=== PATIENT | female | born 1985 ===

== ENCOUNTER 2020-03-06 10:56 | Outpatient (REF) | payer OTHER, SELFPAY ==
--- NOTE | 2020-03-06 11:33 | PM.OP ---
Brief Operative Note Date of procedure: 03/06/20 Procedure: This is doctor Bess Kathleen. This is an ultrasound-guided fine-needle aspiration report. Patient name: Maira Gotti : 1985 Date of Examination: 03/06/2020 Referring Physician Is: Lavon Richardson MD Indication: Multinodular Thyroid Porcedure: Procedure was explained to the patient. Alternatives, the risk and benefits were discussed. Written consent was obtained. A time-out was also obtained. After sterile preparation, fine-needle aspiration of a L [place] 2.7 cm thyroid nodule was performed using direct ultrasound guidance to confirm accurate needle placement. Four aspirations were made using 27 gauge needles. Samples were submitted for cytology. 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 The patient tolerated the procedure well. Aftercare instructions were provided. Impression: Uncomplicated fine needle aspiration biopsy of L [place] 2.7 cm thyroid nodule under ultrasound guideance.
[2020-03-06] MEDS: Lidocaine HCl 1 % 20 ML VIAL 5 ML SUBCUT (12:07)
== END 2020-03-06 10:57 | disposition home or self-care (01) ==
LOC: HO.US 10:56
PROVIDERS: PCP Internal Medicine; Visit Provider Internal Medicine
DX: E04.2 Nontoxic multinodular goiter (principal)
CPT/HCPCS: 10005; 88172; 88173

== ENCOUNTER → 2020-03-13 12:20 | Outpatient (BNVA) | payer OTHER, SELFPAY | PROVIDERS: Visit Provider Internal Medicine | DX: C73 Malignant neoplasm of thyroid gland (principal); E55.9 Vitamin D deficiency, unspecified; R59.0 Localized enlarged lymph nodes; Z98.890 Other specified postprocedural states | CPT/HCPCS: 99214 ==

== ENCOUNTER → 2020-05-22 11:54 | Outpatient (BNVA) | payer OTHER, SELFPAY | PROVIDERS: PCP Internal Medicine; Referring Provider Internal Medicine; Visit Provider Internal Medicine | DX: Z76.89 Persons encountering health services in other specified circumstances (principal) ==

== ENCOUNTER 2020-07-07 | Emergency (ER) | payer OTHER, SELFPAY ==
[2020-07-07 00:49] VITALS: BP 117/70; PULSE 90; RESP 16; TEMP 36.4; O2SAT 96; BMI 38.4
[2020-07-07 01:07] LABS: Appearance Urine HAZY; Color Urine YELLOW; Glucose Urine UA NEG (NEG); Leukocyte Esterase Urine TRACE (NEG); Nitrite Urine NEG (NEG); PH 6.5 (5.0-8.0); UACC Culture Trigger YES; Urine Blood NEG (NEG); Urine Ketones NEG (NEG); Urine Protein NEG (NEG-TRACE)
[2020-07-07 01:09] LABS: UPreg QC Valid YES; Urine Pregnancy NEGATIVE (NEGATIVE)
[2020-07-07 01:12] LABS: MANUAL DIFF FLAG NO
[2020-07-07 01:13] LABS: Bacteria Urine 3+ /LPF; RBC Urine 0 /HPF (0); Squamous Epithelial Cell Urine 4+ /LPF
[2020-07-07 01:16] LABS: Basophils Percent Auto 0.4 % (0-2); Eosinophils Absolute Auto 0.8 X10*3/uL (0.0-0.4); Eosinophils Percent Auto 8.2 % (0-4); Hematocrit 41.8 % (37-47); Hemoglobin 13.8 g/dl (12.0-16.0); Imm Gran Abs Auto 0.04 X10*3/uL (0.00-0.03); Imm Gran Pct Auto 0.4 % (0.0-0.4); Lymphocytes Absolute Auto 3.2 X10*3/uL (1.2-4.9); Mean Corpuscular Hemoglobin 32.3 pg (27.0-33.0); Mean Corpuscular Volume 97.9 fL (80-98); Mean Platelet Volume 8.9 fL (9.4-12.3); Monocytes Absolute Auto 0.7 X10*3/uL (0.1-1.2); Monocytes Percent Auto 7.3 % (2-11); Neutrophils Absolute Auto 4.7 X10*3/uL (2.0-8.3); Neutrophils Percent Auto 49.7 % (45-73); Platelet Count 360 X10*3/uL (160-400); Red Blood Count 4.27 X10*6/uL (4.20-5.50); Red Cell Distribution Width 12.7 % (11.0-16.0); White Blood Count 9.5 X10*3/uL (4.8-10.8)
[2020-07-07 01:40] LABS: Alanine Aminotransferase 57 U/L (0-31); Alkaline Phosphatase 57 U/L (39-117); Anion Gap 12 (12-20); Aspartate Amino Transferase 41 U/L (5-31); Bilirubin Total 0.5 mg/dL (0.0-1.0); Blood Urea Nitrogen 19 mg/dL (9-16); Calcium 9.7 mg/dL (8.4-10.2); Carbon Dioxide 28 mmol/L (22-29); Chloride 102 mmol/L (96-108); Estimated Glomerular Filt Rate 52; Glucose Random 93 mg/dL (60-115); Lipase 56 U/L (8-78); Potassium 3.7 mmol/L (3.3-5.1); Sodium 138 mmol/L (135-145)
--- NOTE | 2020-07-07 01:57 | ED_ITS ---
HPI - Abdominal Pain General Chief Complaint: Abdominal Pain Stated Complaint: Abd pain Time Seen by Provider: 07/07/20 00:27 Source: patient History of Present Illness HPI narrative: This is a 35-year-old female with history of asthma and presents with suprapubic discomfort as well as left lower rib discomfort after having fallen and catching herself without head strike or LOC yesterday. She denies any associated fevers, chills, nausea, vomiting, but does describe pain on urination. Related Data Home Medications Medication Instructions Recorded Confirmed clonazepam 1 mg tablet 1 mg PO DAILY 05/22/20 05/22/20 levothyroxine 150 mcg capsule 150 mcg PO DAILY 05/22/20 05/22/20 topiramate 25 mg tablet 25 mg PO DAILY 05/22/20 05/22/20 Previous Rx's Medication Instructions Recorded albuterol sulfate 90 mcg/actuation 2 puff INHALATION Q4-6H PRN #8.5 g 03/14/20 aerosol inhaler nitrofurantoin monohyd/m-cryst 100 mg PO Q12H 5 Days #10 cap 07/07/20 [Macrobid] phenazopyridine [Pyridium] 100 mg PO TID #6 tab 07/07/20 Allergies Allergy/AdvReac Type Severity Reaction Status Date / Time iodine [IODINE] Allergy Mild RASH Verified 07/07/20 00:48 morphine [MORPHINE] Allergy Unknown WBC Verified 07/07/20 00:48 ELEVATED/ N/V shellfish derived Allergy Unknown HIVES Verified 07/07/20 00:48 [SHELLFISH DERIVED] Review of Systems Review of Systems Pertinent positives and negatives as stated in HPI 10 point review of systems otherwise negative. Physical Exam Vital Signs: Vital Signs: Last Vital Signs Temp 97.6 F 07/07/20 00:49 Pulse 90 07/07/20 00:49 Resp 16 07/07/20 00:49 BP 117/70 07/07/20 00:49 Pulse Ox 96 07/07/20 00:49 Body Mass Index 38.4 VITAL SIGNS: Reviewed. GENERAL: Well developed, well nourished, in no acute distress. HEAD: Normocephalic/atraumatic, NOSE: Nares patent bilateral OROPHARYNX: no oral lesions noted, posterior pharynx clear NECK: Supple, no adenopathy LUNGS: Normal breath sounds, minimal expiratory wheeze, no tachypnea, no increased work of breathing. SpO2<96> CARDIOVASCULAR: Regular rate and rhythm without noted murmurs ABDOMEN: Obese, Soft, tenderness that suprapubic without rebound, non-distended with bowel sounds. MUSCULOSKELETAL: Left anterior tenderness on palpation along the lower edge of the ribs NEUROLOGIC: Alert and oriented x 4. Course Course Course Narrative: This is a 35-year-old female with history and clinical presentation suggestive of possible muscle strain, as well as UTI and doubt diverticulitis. Review of all investigations for UTI but otherwise unremarkable. Patient was treated with combination analgesics for the suspected muscle strain at left upper quadrant discomfort with good resolution pain. Patient also received initial antibiotics here in the emergency department and was discharged in stable condition. MDM - Abdominal Pain Lab Data Result diagrams: 07/07/20 00:59 07/07/20 00:59 Labs: Lab Results 07/07/20 07/07/20 07/07/20 Range/Units 00:59 00:59 00:59 WBC 9.5 (4.8-10.8) X10*3/uL RBC 4.27 (4.20-5.50) X10*6/uL Hgb 13.8 (12.0-16.0) g/dl Hct 41.8 (37-47) % MCV 97.9 (80-98) fL MCH 32.3 (27.0-33.0) pg MCHC 33.0 (31.0-35.0) g/dl RDW 12.7 (11.0-16.0) % Plt Count 360 (160-400) X10*3/uL MPV 8.9 L (9.4-12.3) fL Immature Gran % (Auto) 0.4 (0.0-0.4) % Neut % (Auto) 49.7 (45-73) % Lymph % (Auto) 34.0 (20-40) % [place] % (Auto) 7.3 (2-11) % Eos % (Auto) 8.2 H (0-4) % Baso % (Auto) 0.4 (0-2) % Lymph # (Auto) 3.2 (1.2-4.9) X10*3/uL [place] # (Auto) 0.7 (0.1-1.2) X10*3/uL Eos # (Auto) 0.8 H (0.0-0.4) X10*3/uL Baso # (Auto) 0.0 (0.0-0.2) X10*3/uL Abs Immat Gran (auto) 0.04 H (0.00-0.03) X10*3/uL Absolute Neuts (auto) 4.7 (2.0-8.3) X10*3/uL Absolute Nucleated RBC 0.000 (0.0-0.012) X10*3/uL Nucleated RBC % (auto) 0.0 (0.0-0.2) /100WBC Sodium 138 (135-145) mmol/L Potassium 3.7 (3.3-5.1) mmol/L Chloride 102 (96-108) mmol/L Carbon Dioxide 28 (22-29) mmol/L Anion Gap 12 (12-20) BUN 19 H (9-16) mg/dL Creatinine 1.19 (0.5-1.4) mg/dL Estim Creat Clear Calc 71.0 Estimated GFR 52 Random Glucose 93 (60-115) mg/dL Calcium 9.7 (8.4-10.2) mg/dL Total Bilirubin 0.5 (0.0-1.0) mg/dL AST 41 H (5-31) U/L ALT 57 H (0-31) U/L Alkaline Phosphatase 57 (39-117) U/L Total Protein 8.0 (6.5-8.0) g/dL Albumin 4.0 (3.5-5.0) g/dL Lipase 56 (8-78) U/L Urine Color YELLOW Urine Appearance HAZY Urine pH 6.5 (5.0-8.0) Ur Specific [place] 1.020 (1.005-1.025) Urine Protein NEG (NEG-TRACE) MG/DL Urine Glucose (UA) NEG (NEG) MG/DL Urine Ketones NEG (NEG) MG/DL Urine Blood NEG (NEG) Urine Nitrite NEG (NEG) Ur Leukocyte Esterase TRACE H (NEG) Urine RBC 0 (0) /HPF Urine WBC 5-9 H (0-4) /HPF Ur Squamous Epith Cells 4+ /LPF Urine Bacteria 3+ /LPF Urine Test NEGATIVE (NEGATIVE) Discharge Plan Discharge Clinical Impression: Muscle strain UTI (urinary tract infection) Qualifiers: Urinary tract infection type: acute cystitis Hematuria presence: without hematuria Qualified Code(s): N30.00 - Acute cystitis without hematuria Patient Disposition: Home, Self-Care Instructions: Muscle Strain (ED), Urinary Tract Infection in Women (ED) Additional Instructions: MUSCLE STRAIN 1. Tylenol 1000 mg, orally, every 6 hours as needed for pain control. Do not exceed 4000 mg within 24 hours. 2. Ibuprofen 400 mg, orally with milk or food, every 6 hours as needed for pain control. You may take this with Tylenol for additional symptom relief. 3. Recommend lidocaine patch, these are available [id number] at every [facility], apply to area of maximal tenderness as directed on the outside packaging. UTI You have been provided with a prescription for antibiotics and treatment of your urinary tract infection please complete the entire course. Follow-up with your primary care provider by calling the office in the morning for re-evaluation and further outpatient management. Do not hesitate to return to the emergency department should you develop any acute worsening of your symptoms. Prescriptions: New phenazopyridine [Pyridium] 100 mg tablet 100 mg PO TID Qty: 6 RF: 0 nitrofurantoin monohyd/m-cryst [Macrobid] 100 mg capsule 100 mg PO Q12H 5 Days Qty: 10 RF: 0 No Action albuterol sulfate 90 mcg/actuation HFA aerosol inhaler 2 puff inhalation Q4-6H PRN (Reason: shortness of breath or wheezing) Qty: 8.5 RF: 0 clonazepam [Klonopin] 1 mg tablet 1 mg PO DAILY RF: 0 topiramate [Topamax] 25 mg tablet 25 mg PO DAILY RF: 0 levothyroxine 150 mcg capsule 150 mcg PO DAILY RF: 0 Referrals: Physician,Unknown [Primary Care Provider] - 2 days [facility] Past Medical History Source: nursing notes reviewed Medical History Cervical lymphadenopathy Hypothyroidism Thyroid cancer Vitamin D deficiency Surgical History Hx of section Hx of cholecystectomy Family History Family History Father Diabetes Asthma Mother Unknown family medical history Social History Social History Smoking Status: Current every day smoker Tobacco Type: Cigarette Cigarettes Per Day: 1 Years Smoked: 20 years Advance Directives: No Advance Directives Information Provided: No
[2020-07-07] MEDS: Phenazopyridine HCL 100 MG TABLET PO (02:50)
[2020-07-07] MEDS: Nitrofurantoin Monohyd/M-Cryst 100 MG CAPSULE PO (02:50)
[2020-07-07] MEDS: Acetaminophen 325 MG TABLET 975 MG PO (02:50)
[2020-07-07] MEDS: Lidocaine 4 % Patch ADH..PATCH 1 PATCH TRANSDERMA (02:52)
[2020-07-07] MEDS: Ketorolac Tromethamine 15 MG/ML VIAL IM (02:56)
== END 2020-07-07 03:11 | disposition home or self-care (01) ==
PROVIDERS: Emergency Provider Student in an Organized Health Care Education/Training Program
DX: S39.011A Strain of muscle, fascia and tendon of abdomen, initial encounter (principal); W17.89XA Other fall from one level to another, initial encounter; N30.00 Acute cystitis without hematuria; Y93.9 Activity, unspecified; Y92.009 Unspecified place in unspecified non-institutional (private) residence as the place of occurrence of the external cause; Y99.9 Unspecified external cause status
CPT/HCPCS: 36415; 80053; 81001; 81003; 81025; 83690; 85025; 87086; 96372; 99283; 99284; J1885

== ENCOUNTER 2020-07-23 16:01 | Outpatient (REF) | payer OTHER, SELFPAY | END 2020-07-23 16:02 | disposition home or self-care (01) | LOC: HO.LAB 16:01 | PROVIDERS: Visit Provider Nurse Practitioner Family | DX: R52 Pain, unspecified (principal); Z20.822 Contact with and (suspected) exposure to COVID-19 | CPT/HCPCS: 36415; U0003; U0005 ==

== ENCOUNTER 2020-07-24 13:04 | Outpatient (REF) | payer OTHER, SELFPAY ==
[2020-07-24 13:57] LABS: MANUAL DIFF FLAG NO
[2020-07-24 14:02] LABS: Basophils Percent Auto 0.6 % (0-2); Eosinophils Absolute Auto 0.3 X10*3/uL (0.0-0.4); Eosinophils Percent Auto 4.6 % (0-4); Hematocrit 41.6 % (37-47); Hemoglobin 13.6 g/dl (12.0-16.0); Imm Gran Abs Auto 0.02 X10*3/uL (0.00-0.03); Imm Gran Pct Auto 0.3 % (0.0-0.4); Lymphocytes Absolute Auto 2.2 X10*3/uL (1.2-4.9); Lymphocytes Percent Auto 32.2 % (20-40); Mean Corpuscular HGB Conc 32.7 g/dl (31.0-35.0); Mean Corpuscular Hemoglobin 32.1 pg (27.0-33.0); Mean Corpuscular Volume 98.1 fL (80-98); Mean Platelet Volume 9.2 fL (9.4-12.3); Monocytes Absolute Auto 0.4 X10*3/uL (0.1-1.2); Monocytes Percent Auto 5.9 % (2-11); Neutrophils Absolute Auto 3.9 X10*3/uL (2.0-8.3); Neutrophils Percent Auto 56.4 % (45-73); Platelet Count 337 X10*3/uL (160-400); Red Blood Count 4.24 X10*6/uL (4.20-5.50); Red Cell Distribution Width 13.8 % (11.0-16.0); White Blood Count 6.9 X10*3/uL (4.8-10.8)
[2020-07-24 14:37] LABS: Alanine Aminotransferase 60 U/L (0-31); Albumin Level 4.1 g/dL (3.5-5.0); Alkaline Phosphatase 55 U/L (39-117); Anion Gap 12 (12-20); Aspartate Amino Transferase 53 U/L (5-31); Bilirubin Total 0.5 mg/dL (0.0-1.0); Blood Urea Nitrogen 14 mg/dL (9-16); Calcium 9.1 mg/dL (8.4-10.2); Carbon Dioxide 28 mmol/L (22-29); Chloride 102 mmol/L (96-108); Estimated Glomerular Filt Rate 48; Glucose Fasting 80 mg/dL (60-99); Potassium 4.5 mmol/L (3.3-5.1); Sodium 137 mmol/L (135-145); Total Protein 7.9 g/dL (6.5-8.0)
[2020-07-24 14:44] LABS: Ferritin 22 ng/mL (10-122); TSH reflex Free T4 71.75 uIU/mL (0.32-4.0)
[2020-07-24 14:56] LABS: Folate 4.1 ng/mL (> or = 4.0); Vitamin B12 436 pg/mL (200-900)
[2020-07-24 15:32] LABS: Free T4 (Free Thyroxine) < 0.40 ng/dL (0.71-1.85)
== END 2020-07-24 13:05 | disposition home or self-care (01) ==
LOC: HO.HMGCLDS 13:04
PROVIDERS: PCP Internal Medicine; Visit Provider Nurse Practitioner Family
DX: R52 Pain, unspecified (principal)
CPT/HCPCS: 36415; 80053; 82306; 82607; 82728; 82746; 84439; 84443; 85025

== ENCOUNTER 2020-10-27 23:09 | Emergency (ER) | payer OTHER, SELFPAY ==
[2020-10-27 23:15] VITALS: BP 99/72; PULSE 99; RESP 20; TEMP 37.2; O2SAT 94; BMI 36.6
--- NOTE | 2020-10-28 00:34 | ED.ASTHMA ---
HPI - Asthma General Chief Complaint: Asthma <Dewayne Bowden MD - Last Filed: 10/28/20 16:41> Stated Complaint: Asthma <Dewayne Bowden MD - Last Filed: 10/28/20 16:41> Time Seen by Provider: 10/28/20 00:26 <Dewayne Bowden MD - Last Filed: 10/28/20 16:41> Source: patient <Dewayne Bowden MD - Last Filed: 10/28/20 16:41> Mode of arrival: ambulatory <Dewayne Bowden MD - Last Filed: 10/28/20 16:41> Limitations: no limitations <Dewayne Bowden MD - Last Filed: 10/28/20 16:41> History of Present Illness HPI Narrative: Patient with history of asthma been feeling more short of breath with wheezing for last 3 days secondary to pollen on Advair and albuterol inhaler at home usually get sick very often when the pollen season comes No fever. Feels congested <Dewayne Bowden MD - Last Filed: 10/28/20 16:41> Related Data Home Medications: Home Medications Medication Instructions Recorded Confirmed clonazepam 1 mg tablet 1 mg PO DAILY 05/22/20 05/22/20 levothyroxine 150 mcg capsule 150 mcg PO DAILY 05/22/20 05/22/20 topiramate 25 mg tablet 25 mg PO DAILY 05/22/20 05/22/20 Previous Rx's Medication Instructions Recorded albuterol sulfate 90 mcg/actuation 2 puff INHALATION Q4-6H PRN #8.5 g 03/14/20 aerosol inhaler nitrofurantoin monohyd/m-cryst 100 mg PO Q12H 5 Days #10 cap 07/07/20 [Macrobid] phenazopyridine [Pyridium] 100 mg PO TID #6 tab 07/07/20 levothyroxine 200 mcg tablet 200 mcg PO DAILY #90 tab 07/25/20 clonidine HCl 0.2 mg tablet 0.2 mg PO BID-TID PRN #90 tab 09/29/20 albuterol sulfate 2.5 mg INHALATION Q4-6H PRN #180 ml 10/28/20 albuterol sulfate [ProAir HFA] 2 puff INHALATION Q4-6H PRN #8.5 g 10/28/20 prednisone 40 mg PO DAILY #10 tab 10/28/20 <Dewayne Bowden MD - Last Filed: 10/28/20 16:41> Allergies/Adverse Reactions: Allergies Allergy/AdvReac Type Severity Reaction Status Date / Time iodine [IODINE] Allergy Mild RASH Verified 07/07/20 00:48 morphine [MORPHINE] Allergy Unknown WBC Verified 07/07/20 00:48 ELEVATED/ N/V shellfish derived Allergy Unknown HIVES Verified 07/07/20 00:48 [SHELLFISH DERIVED] <Dewayne Bowden MD - Last Filed: 10/28/20 16:41> Review of Systems Review of Systems: Constitutional : No Weight loss, No Fever, No Chills ENT/Mouth : No sore throat, No Rhinorrhea Eyes: No Eye Pain, No Swelling Cardiovascular : No Chest Pain, no palpitations Respiratory : +Cough, No Sputum, +shortness of breath Gastrointestinal : no Nausea, No Vomiting, No Diarrhea, No abdominal Pain, no black stools Genitourinary : No Dysuria, No Urinary Frequency Musculoskeletal : No joint pain, No Myalgias, No Joint Swelling Skin : No Skin Lesions, No rash Neuro : No Weakness, No Numbness, No Dizziness, No Headache Psych : No Anxiety/Panic, No Depression Heme/Lymph: No Bruising, No Lymphadenopathy Endocrine : No Polyuria, No Polydipsia All other systems reviewed and are negative <Dewayne Bowden MD - Last Filed: 10/28/20 16:41> [facility] Past Medical History Medical History: Medical History Cervical lymphadenopathy Hypothyroidism Thyroid cancer Vitamin D deficiency <Dewayne Bowden MD - Last Filed: 10/28/20 16:41> Surgical History: Surgical History Hx of section Hx of cholecystectomy <Dewayne Bowden MD - Last Filed: 10/28/20 16:41> Family History Family History: Family History Father Diabetes Asthma Mother Unknown family medical history <Dewayne Bowden MD - Last Filed: 10/28/20 16:41> Social History Social History: Social History Alcohol intake: former Smoking Status: Current every day smoker Tobacco Type: Cigarette Cigarettes Per Day: 1 Years Smoked: 20 years Use of substances other than those prescribed or required for medical reasons: No Advance Directives: No Advance Directives Information Provided: No Patient : No <Dewayne Bowden MD - Last Filed: 10/28/20 16:41> Physical Exam Vital Signs: Vital Signs: Last Vital Signs Temp 98.9 F 10/27/20 23:15 Pulse 92 10/28/20 02:00 Resp 10/28/20 02:00 BP 91/57 L 10/28/20 02:00 Pulse Ox 94 10/28/20 02:00 Body Mass Index 36.6 <Dewayne Bowden MD - Last Filed: 10/28/20 16:41> Vital Signs: Last Vital Signs Temp 98.9 F 10/27/20 23:15 Pulse 92 10/28/20 02:00 Resp 10/28/20 02:00 BP 91/57 L 10/28/20 02:00 Pulse Ox 94 10/28/20 02:00 Body Mass Index 36.6 <Elisa King MD - Last Filed: 10/28/20 02:28> Appearance: Alert. Oriented X3. No acute distress. Eyes: PERRLA, No Nystagmus ENT: Pharynx normal. Oral Mucosa moist Neck: Normal inspection. Neck supple. CVS: Normal heart rate and rhythm. Pulses normal. Respiratory: Mild respiratory distress with frequent dry cough. Equal air entry bilateral, diffuse bilateral wheezing and rhonchi no rales Abdomen: Soft and nontender. Bowel sounds are present, no mass palpable, no CVA tenderness Skin: Skin warm and dry. Normal skin color. Normal skin turgor. Extremities: No lower extremity edema. No calf tenderness Neuro: Oriented X 3. No motor deficit. No sensory deficit.No cerebellar signs , cranial nerves II-XII intact <Dewayne Bowden MD - Last Filed: 10/28/20 16:41> Course Course Course Narrative: Patient re-evaluated with subjective significant improvement in ability to breathe, able to speak in full sentences, with minimal wheeze on auscultation but good air movement. Patient be discharged home in stable condition. <Elisa King MD - Last Filed: 10/28/20 02:28> MDM - Asthma Lab Data Attestation: I reviewed the patient's lab results. <Dewayne Bowden MD - Last Filed: 10/28/20 16:41> Result diagrams: : 10/28/20 01:02 10/28/20 01:05 <Dewayne Bowden MD - Last Filed: 10/28/20 16:41> Labs: Lab Results 10/28/20 10/28/20 Range/Units 01:02 01:05 WBC 11.5 H (4.8-10.8) X10*3/uL RBC 3.95 L (4.20-5.50) X10*6/uL Hgb 13.0 (12.0-16.0) g/dl Hct 39.2 (37-47) % MCV 99.2 H (80-98) fL MCH 32.9 (27.0-33.0) pg MCHC 33.2 (31.0-35.0) g/dl RDW 12.7 (11.0-16.0) % Plt Count 321 (160-400) X10*3/uL MPV 9.1 L (9.4-12.3) fL Immature Gran % (Auto) 0.3 (0.0-0.4) % Neut % (Auto) 51.8 (45-73) % Lymph % (Auto) 32.7 (20-40) % [place] % (Auto) 8.0 (2-11) % Eos % (Auto) 6.8 H (0-4) % Baso % (Auto) 0.4 (0-2) % Lymph # (Auto) 3.8 (1.2-4.9) X10*3/uL [place] # (Auto) 0.9 (0.1-1.2) X10*3/uL Eos # (Auto) 0.8 H (0.0-0.4) X10*3/uL Baso # (Auto) 0.1 (0.0-0.2) X10*3/uL Abs Immat Gran (auto) 0.03 (0.00-0.03) X10*3/uL Absolute Neuts (auto) 6.0 (2.0-8.3) X10*3/uL Absolute Nucleated RBC 0.000 (0.0-0.012) X10*3/uL Nucleated RBC % (auto) 0.0 (0.0-0.2) /100WBC Sodium 138 (135-145) mmol/L Potassium 3.6 (3.3-5.1) mmol/L Chloride 106 (96-108) mmol/L Carbon Dioxide 20 L (22-29) mmol/L Anion Gap 16 (12-20) BUN 21 H (9-16) mg/dL Creatinine 0.88 (0.5-1.4) mg/dL Estim Creat Clear Calc 93.4 Estimated GFR > 60 Random Glucose 109 (60-115) mg/dL Calcium 8.5 D (8.4-10.2) mg/dL <Dewayne Bowden MD - Last Filed: 10/28/20 16:41> Lab Results 10/28/20 10/28/20 Range/Units 01:02 01:05 WBC 11.5 H (4.8-10.8) X10*3/uL RBC 3.95 L (4.20-5.50) X10*6/uL Hgb 13.0 (12.0-16.0) g/dl Hct 39.2 (37-47) % MCV 99.2 H (80-98) fL MCH 32.9 (27.0-33.0) pg MCHC 33.2 (31.0-35.0) g/dl RDW 12.7 (11.0-16.0) % Plt Count 321 (160-400) X10*3/uL MPV 9.1 L (9.4-12.3) fL Immature Gran % (Auto) 0.3 (0.0-0.4) % Neut % (Auto) 51.8 (45-73) % Lymph % (Auto) 32.7 (20-40) % [place] % (Auto) 8.0 (2-11) % Eos % (Auto) 6.8 H (0-4) % Baso % (Auto) 0.4 (0-2) % Lymph # (Auto) 3.8 (1.2-4.9) X10*3/uL [place] # (Auto) 0.9 (0.1-1.2) X10*3/uL Eos # (Auto) 0.8 H (0.0-0.4) X10*3/uL Baso # (Auto) 0.1 (0.0-0.2) X10*3/uL Abs Immat Gran (auto) 0.03 (0.00-0.03) X10*3/uL Absolute Neuts (auto) 6.0 (2.0-8.3) X10*3/uL Absolute Nucleated RBC 0.000 (0.0-0.012) X10*3/uL Nucleated RBC % (auto) 0.0 (0.0-0.2) /100WBC Sodium 138 (135-145) mmol/L Potassium 3.6 (3.3-5.1) mmol/L Chloride 106 (96-108) mmol/L Carbon Dioxide 20 L (22-29) mmol/L Anion Gap 16 (12-20) BUN 21 H (9-16) mg/dL Creatinine 0.88 (0.5-1.4) mg/dL Estim Creat Clear Calc 93.4 Estimated GFR > 60 Random Glucose 109 (60-115) mg/dL Calcium 8.5 D (8.4-10.2) mg/dL <Elisa King MD - Last Filed: 10/28/20 02:28> Discharge Plan Discharge Clinical Impression: Asthma with acute exacerbation <Dewayne Bowden MD - Last Filed: 10/28/20 16:41> Patient Disposition: Home, Self-Care <Dewayne Bowden MD - Last Filed: 10/28/20 16:41> Instructions: Asthma (ED) <Dewayne Bowden MD - Last Filed: 10/28/20 16:41> Additional Instructions: Continue her inhaler every 4 hours as needed. Start taking [id number] Claritin (loratadine) as well as Flonase daily to assist an asthma control. Prednisone as advised. Follow with PCP if not better <Dewayne Bowden MD - Last Filed: 10/28/20 16:41> Prescriptions: New prednisone 20 mg tablet 40 mg PO DAILY Qty: 10 RF: 0 albuterol sulfate 2.5 mg /3 mL (0.083 %) solution for nebulization 2.5 mg inhalation Q4-6H PRN (Reason: shortness of breath or wheezing) Qty: 180 RF: 0 albuterol sulfate [ProAir HFA] 90 mcg/actuation HFA aerosol inhaler 2 puff inhalation Q4-6H PRN (Reason: shortness of breath or wheezing) Qty: 8.5 RF: 0 No Action albuterol sulfate 90 mcg/actuation HFA aerosol inhaler 2 puff inhalation Q4-6H PRN (Reason: shortness of breath or wheezing) Qty: 8.5 RF: 0 levothyroxine 200 mcg tablet 200 mcg PO DAILY Qty: 90 RF: 0 clonidine HCl 0.2 mg tablet 0.2 mg PO BID-TID PRN (Reason: for anxiety) Qty: 90 RF: 0 phenazopyridine [Pyridium] 100 mg tablet 100 mg PO TID Qty: 6 RF: 0 nitrofurantoin monohyd/m-cryst [Macrobid] 100 mg capsule 100 mg PO Q12H 5 Days Qty: 10 RF: 0 clonazepam [Klonopin] 1 mg tablet 1 mg PO DAILY RF: 0 topiramate [Topamax] 25 mg tablet 25 mg PO DAILY RF: 0 levothyroxine 150 mcg capsule 150 mcg PO DAILY RF: 0 <Dewayne Bowden MD - Last Filed: 10/28/20 16:41> Referrals: Physician,Unknown [Primary Care Provider] - 2 days <Dewayne Bowden MD - Last Filed: 10/28/20 16:41> Interventions: ED Discharge Assessment Last Done: 10/28/20 02:35 <Dewayne Bowden MD - Last Filed: 10/28/20 16:41> Discharge Date/Time: 10/28/20 02:40 <Dewayne Bowden MD - Last Filed: 10/28/20 16:41>
[2020-10-28] MEDS: Magnesium Sulfate/H2O 2 GM/50 ML PIGGYBACK IV (00:52)
[2020-10-28] MEDS: methylPREDNISolone Sod Succ 125 MG/2 ML VIAL IVPUSH (00:53)
[2020-10-28 01:09] LABS: MANUAL DIFF FLAG NO
[2020-10-28 01:12] LABS: Basophils Absolute Auto 0.1 X10*3/uL (0.0-0.2); Basophils Percent Auto 0.4 % (0-2); Eosinophils Absolute Auto 0.8 X10*3/uL (0.0-0.4); Eosinophils Percent Auto 6.8 % (0-4); Hematocrit 39.2 % (37-47); Imm Gran Abs Auto 0.03 X10*3/uL (0.00-0.03); Imm Gran Pct Auto 0.3 % (0.0-0.4); Lymphocytes Absolute Auto 3.8 X10*3/uL (1.2-4.9); Lymphocytes Percent Auto 32.7 % (20-40); Mean Corpuscular HGB Conc 33.2 g/dl (31.0-35.0); Mean Corpuscular Hemoglobin 32.9 pg (27.0-33.0); Mean Corpuscular Volume 99.2 fL (80-98); Mean Platelet Volume 9.1 fL (9.4-12.3); Monocytes Absolute Auto 0.9 X10*3/uL (0.1-1.2); Neutrophils Percent Auto 51.8 % (45-73); Platelet Count 321 X10*3/uL (160-400); Red Blood Count 3.95 X10*6/uL (4.20-5.50); Red Cell Distribution Width 12.7 % (11.0-16.0); White Blood Count 11.5 X10*3/uL (4.8-10.8)
[2020-10-28] MEDS: Ketorolac Tromethamine 30 MG/ML VIAL IVPUSH (01:18)
[2020-10-28] MEDS: Albuterol Sulfate (0.083%) 2.5 MG/3 ML VIAL.NEB 5 MG INHALE (01:23)
[2020-10-28 01:24] VITALS: PULSE 85; O2SAT 94
[2020-10-28 01:34] LABS: Anion Gap 16 (12-20); Blood Urea Nitrogen 21 mg/dL (9-16); Calcium 8.5 mg/dL (8.4-10.2); Carbon Dioxide 20 mmol/L (22-29); Chloride 106 mmol/L (96-108); Creatinine Clr Calc Pharmacy 93.4; Estimated Glomerular Filt Rate > 60; Glucose Random 109 mg/dL (60-115); Potassium 3.6 mmol/L (3.3-5.1); Sodium 138 mmol/L (135-145)
[2020-10-28 02:00] VITALS: BP 91/57; PULSE 92; RESP 15; O2SAT 94
== END 2020-10-28 02:40 | disposition home or self-care (01) ==
PROVIDERS: Emergency Provider Internal Medicine
DX: J45.901 Unspecified asthma with (acute) exacerbation (principal); F17.210 Nicotine dependence, cigarettes, uncomplicated; Z79.51 Long term (current) use of inhaled steroids; Z85.850 Personal history of malignant neoplasm of thyroid
CPT/HCPCS: 36415; 80048; 85025; 94640; 96365; 96375; 99284; 99285; J1885; J2930; J3475

== ENCOUNTER 2020-11-07 16:54 | Emergency (ER) | payer OTHER, SELFPAY ==
--- NOTE | ~2020-11-07 | US_ITS ---
EXAMINATION: US VENOUS ULTRASOUND WITH DOPPLER LOWER EXTREMITY, BILATERAL CLINICAL INFORMATION: Edema COMPARISON: None TECHNIQUE: Ultrasound of the deep veins is performed from the hip to the calf with compression sonography and color and pulse Doppler assessment. Spectral analysis with color-flow imaging is performed. FINDINGS: Per the drawer maker's notes, the examination is limited by the patient's body habitus and patient discomfort with full compression. RIGHT: There is normal venous compression and respiratory variation and augmented flow. The visualized common femoral vein, superficial femoral vein, profunda femoral vein, popliteal vein, and the trifurcation region shows no evidence of deep venous thrombosis. There is no significant popliteal fossa cyst. There is edema in the soft tissues of the calf. LEFT: There is normal venous compression and respiratory variation and augmented flow. The visualized common femoral vein, superficial femoral vein, profunda femoral vein, popliteal vein, and the trifurcation region shows no evidence of deep venous thrombosis. There is no significant popliteal fossa cyst. There is edema in the soft tissues of the calf. If the patient's symptoms persist, followup ultrasound in 5 days 7 days might be of value to exclude proximal propagation from a non-visualized calf vein. US/US venous duplex LE BI IMPRESSION: No DVT demonstrated in the bilateral lower extremity. Bilateral calf soft tissue edema.
[2020-11-07 18:14] VITALS: BP 107/76; PULSE 90; RESP 16; TEMP 37.1; O2SAT 96; BMI 38.4
[2020-11-07 18:48] LABS: Glucose, Whole Blood 111 mg/dL (60-115)
[2020-11-07 19:59] VITALS: BP 101/74; PULSE 81; RESP 18; TEMP 36.4; O2SAT 98
--- NOTE | 2020-11-07 21:04 | ED.GENADULT ---
HPI - General Adult General Chief complaint: Extremity Injury, Lower Stated complaint: Swollen painful Feet Time Seen by Provider: 11/07/20 20:00 Source: patient, RN notes reviewed and old records reviewed Mode of arrival: ambulatory Limitations: no limitations History of Present Illness HPI narrative: 35-year-old female here today with a past medical history of hypothyroidism, cervical lymphadenopathy, vitamin-D deficiency, thyroid cancer. She is here today for complaining of bilateral lower extremity pain, burning in her feet and tingling in the back of the calves bilaterally. Patient also reports bilateral lower extremity swelling R> L. POC checked in triage 111. Related Data Home Medications Medication Instructions Recorded Confirmed clonazepam 1 mg tablet 1 mg PO DAILY 05/22/20 05/22/20 levothyroxine 150 mcg capsule 150 mcg PO DAILY 05/22/20 05/22/20 topiramate 25 mg tablet 25 mg PO DAILY 05/22/20 05/22/20 Previous Rx's Medication Instructions Recorded albuterol sulfate 90 mcg/actuation 2 puff INHALATION Q4-6H PRN #8.5 g 03/14/20 aerosol inhaler nitrofurantoin monohyd/m-cryst 100 mg PO Q12H 5 Days #10 cap 07/07/20 [Macrobid] phenazopyridine [Pyridium] 100 mg PO TID #6 tab 07/07/20 levothyroxine 200 mcg tablet 200 mcg PO DAILY #90 tab 07/25/20 clonidine HCl 0.2 mg tablet 0.2 mg PO BID-TID PRN #90 tab 09/29/20 albuterol sulfate 2.5 mg INHALATION Q4-6H PRN #180 ml 10/28/20 albuterol sulfate [ProAir HFA] 2 puff INHALATION Q4-6H PRN #8.5 g 10/28/20 prednisone 40 mg PO DAILY #10 tab 10/28/20 ibuprofen 600 mg PO Q8H PRN #20 tab 11/07/20 Allergies Allergy/AdvReac Type Severity Reaction Status Date / Time iodine [IODINE] Allergy Mild RASH Verified 07/07/20 00:48 morphine [MORPHINE] Allergy Unknown WBC Verified 07/07/20 00:48 ELEVATED/ N/V shellfish derived Allergy Unknown HIVES Verified 07/07/20 00:48 [SHELLFISH DERIVED] Review of Systems Review of Systems: Constitutional : No Weight loss, No Fever, No Chills, No Night Sweats, No Fatigue, No Malaise ENT/Mouth : No Hearing loss, No Ear Pain, No Nasal Congestion, No Sinus Pain, No Hoarseness, No sore throat, No Rhinorrhea, No Swallowing Difficulty Eyes: No Eye Pain, No Swelling, No Redness, No Foreign Body, No Discharge, No Vision Changes Cardiovascular : No Chest Pain, No SOB, No Dyspnea on Exertion, No Orthopnea, No Edema, No Palpitations Respiratory : No Cough, No Sputum, No Wheezing, No Smoke Exposure, No Dyspnea Gastrointestinal : No Nausea, No Vomiting, No Diarrhea, No Constipation, No abdominal Pain, No Hematochezia, No Melena Genitourinary : no irregular bleeding, No Dysuria, No Urinary Frequency, No Hematuria, No Urinary Incontinence, No Urgency, No Flank Pain, No Urinary Flow Changes, No Hesitancy Musculoskeletal : No joint pain, No Myalgias, Joint Swelling Skin : No Skin Lesions, No rash Neuro : No Weakness, No Numbness, No Paresthesias, No Loss of Consciousness, No Dizziness, No Headache Psych : No Anxiety/Panic, No Depression, No SI/HI/AH/VH, No Social Issues, Heme/Lymph: No Bruising, No Bleeding,No Lymphadenopathy Endocrine : No Polyuria, No Polydipsia, No Temperature Intolerance Yes all other systems are reviewed and are negative [facility] Past Medical History Medical History Cervical lymphadenopathy Hypothyroidism Thyroid cancer Vitamin D deficiency Surgical History Hx of section Hx of cholecystectomy Family History Family History Father Diabetes Asthma Mother Unknown family medical history Social History Social History Alcohol intake: former Cigarettes Per Day: 1 Years Smoked: 20 years Advance Directives: No Advance Directives Information Provided: No Patient : No Physical Exam Vital Signs: Vital Signs: Last Vital Signs Temp 97.6 F 11/07/20 19:59 Pulse 81 11/07/20 19:59 Resp 18 11/07/20 19:59 BP 101/74 11/07/20 19:59 Pulse Ox 98 11/07/20 19:59 Body Mass Index 38.4 Const: General: healthy appearing, no acute distress and well developed Nutritional Appearance: well nourished Orientation/consciousness: patient oriented x3 Neck: Neck: Yes normal visual inspection, Yes full ROM and Yes trachea midline Thyroid: Thyroid normal Resp: Auscultation: clear to auscultation bilaterally Cardio: Rate: regular rate Rhythm: regular rhythm GI: Inspection: Yes normal to inspection and No distended Palpation (GI): No hepatosplenomegaly present Auscultation: normal bowel sounds Skin: General skin exam: elasticity normal, turgor normal and dry skin Neuro: General: patient oriented x3 Extrem: General: Yes pedal edema Right upper extremity: normal to inspection Left upper extremity: normal to inspection Right lower extremity: edema Left lower extremity: edema Course Course Course Narrative: 35-year-old female here today for complaints of bilateral lower extremity swelling, tingling in bilateral feet burning. Patient reports that she feels like her feet are on fire. I will order ultrasound Reevaluation(s) Reevaluation #1: Doppler ultrasound of bilateral lower extremities shows bilateral calf soft tissue edema with no DVT bilaterally. I will be discharging patient home. Patient can follow up with her primary care provider. Copy of ultrasound report given to patient. Medical Decision Making Lab Data Labs: Lab Results 11/07/20 Range/Units 18:29 POC Glucose 111 (60-115) mg/dL Imaging Data Venous US: Radiologist's impression: FINDINGS: Per the set illustrator's notes, the examination is limited by the patient's body habitus and patient discomfort with full compression. RIGHT: There is normal venous compression and respiratory variation and augmented flow. The visualized common femoral vein, superficial femoral vein, profunda femoral vein, popliteal vein, and the trifurcation region shows no evidence of deep venous thrombosis. There is no significant popliteal fossa cyst. There is edema in the soft tissues of the calf. LEFT: There is normal venous compression and respiratory variation and augmented flow. The visualized common femoral vein, superficial femoral vein, profunda femoral vein, popliteal vein, and the trifurcation region shows no evidence of deep venous thrombosis. There is no significant popliteal fossa cyst. There is edema in the soft tissues of the calf. If the patient's symptoms persist, followup ultrasound in 5 days 7 days might be of value to exclude proximal propagation from a non-visualized calf vein. US/US venous duplex LE BI IMPRESSION: No DVT demonstrated in the bilateral lower extremity. Discharge Plan Discharge Clinical Impression: Swelling of lower extremity Patient Disposition: Home, Self-Care Instructions: Leg Edema (ED) Additional Instructions: You were seen here today for bilateral lower extremity swelling, burning of your feet. Ultrasound of bilateral extremities were negative. Please follow-up with your primary care provider in 2-3 days. Make sure you keep your feet elevated. Try to stay a few feet for the next couple days. You may return to emergency department if your symptoms get worse or if you will experience any additional concerning symptoms. Prescriptions: New ibuprofen 600 mg tablet 600 mg PO Q8H PRN (Reason: pain) Qty: 20 RF: 0 No Action albuterol sulfate 90 mcg/actuation HFA aerosol inhaler 2 puff inhalation Q4-6H PRN (Reason: shortness of breath or wheezing) Qty: 8.5 RF: 0 levothyroxine 200 mcg tablet 200 mcg PO DAILY Qty: 90 RF: 0 clonidine HCl 0.2 mg tablet 0.2 mg PO BID-TID PRN (Reason: for anxiety) Qty: 90 RF: 0 phenazopyridine [Pyridium] 100 mg tablet 100 mg PO TID Qty: 6 RF: 0 nitrofurantoin monohyd/m-cryst [Macrobid] 100 mg capsule 100 mg PO Q12H 5 Days Qty: 10 RF: 0 prednisone 20 mg tablet 40 mg PO DAILY Qty: 10 RF: 0 albuterol sulfate 2.5 mg /3 mL (0.083 %) solution for nebulization 2.5 mg inhalation Q4-6H PRN (Reason: shortness of breath or wheezing) Qty: 180 RF: 0 albuterol sulfate [ProAir HFA] 90 mcg/actuation HFA aerosol inhaler 2 puff inhalation Q4-6H PRN (Reason: shortness of breath or wheezing) Qty: 8.5 RF: 0 clonazepam [Klonopin] 1 mg tablet 1 mg PO DAILY RF: 0 topiramate [Topamax] 25 mg tablet 25 mg PO DAILY RF: 0 levothyroxine 150 mcg capsule 150 mcg PO DAILY RF: 0 Stand Alone Forms: Work/School Release Interventions: ED Discharge Assessment Last Done: 11/07/20 23:02 Discharge Date/Time: 11/07/20 23:12
[2020-11-07] MEDS: Ibuprofen 600 MG TABLET PO (21:09)
== END 2020-11-07 23:12 | disposition home or self-care (01) ==
PROVIDERS: Emergency Provider Student in an Organized Health Care Education/Training Program; PCP Internal Medicine
DX: M79.662 Pain in left lower leg (principal); M79.661 Pain in right lower leg; R22.43 Localized swelling, mass and lump, lower limb, bilateral; E66.01 Morbid (severe) obesity due to excess calories; F41.9 Anxiety disorder, unspecified; F17.210 Nicotine dependence, cigarettes, uncomplicated; Z85.850 Personal history of malignant neoplasm of thyroid
CPT/HCPCS: 82947; 93970; 99284

== ENCOUNTER 2020-11-12 14:33 | Emergency (ER) | payer OTHER, SELFPAY ==
[2020-11-12 16:28] VITALS: BP 114/67; PULSE 86; RESP 20; TEMP 37.1; O2SAT 95; BMI 36.6
== END 2020-11-12 19:55 | disposition left against medical advice (07) ==
PROVIDERS: Emergency Provider Emergency Medicine; PCP Internal Medicine
DX: R53.1 Weakness (principal); R40.0 Somnolence
CPT/HCPCS: 99281; 99282

== ENCOUNTER 2020-11-13 11:34 | Outpatient (REF) | payer OTHER, SELFPAY ==
[2020-11-13 13:06] LABS: Basophils Percent Auto 0.4 % (0-2); Imm Gran Abs Auto 0.03 X10*3/uL (0.00-0.03); Imm Gran Pct Auto 0.3 % (0.0-0.4); MANUAL DIFF FLAG SCAN; Mean Corpuscular Hemoglobin 32.3 pg (27.0-33.0); Mean Corpuscular Volume 98.8 fL (80-98); PLT CLUMP 1; SCAN SMEAR FLAG 1
[2020-11-13 13:09] LABS: Eosinophils Absolute Auto 0.4 X10*3/uL (0.0-0.4); Eosinophils Percent Auto 4.7 % (0-4); Hematocrit 42.8 % (37-47); Lymphocytes Absolute Auto 2.2 X10*3/uL (1.2-4.9); Lymphocytes Percent Auto 23.6 % (20-40); Mean Corpuscular HGB Conc 32.7 g/dl (31.0-35.0); Monocytes Absolute Auto 0.6 X10*3/uL (0.1-1.2); Monocytes Percent Auto 6.8 % (2-11); Neutrophils Absolute Auto 5.9 X10*3/uL (2.0-8.3); Neutrophils Percent Auto 64.2 % (45-73); Red Blood Count 4.33 X10*6/uL (4.20-5.50); Red Cell Distribution Width 12.7 % (11.0-16.0); White Blood Count 9.2 X10*3/uL (4.8-10.8)
[2020-11-13 13:40] LABS: Calcium 8.3 mg/dL (8.4-10.2); Platelet Count 244 X10*3/uL (160-400)
[2020-11-13 13:41] LABS: SLIDE REVIEW VERIFIED
[2020-11-13 13:47] LABS: Alanine Aminotransferase 111 U/L (0-31); Albumin Level 3.9 g/dL (3.5-5.0); Alkaline Phosphatase 54 U/L (39-117); Anion Gap 12 (12-20); Aspartate Amino Transferase 72 U/L (5-31); Bilirubin Total 0.4 mg/dL (0.0-1.0); Blood Urea Nitrogen 18 mg/dL (9-16); Calcium 8.4 mg/dL (8.4-10.2); Carbon Dioxide 27 mmol/L (22-29); Chloride 103 mmol/L (96-108); Estimated Glomerular Filt Rate 51; Glucose Random 79 mg/dL (60-115); Potassium 4.2 mmol/L (3.3-5.1); Sodium 138 mmol/L (135-145); Total Protein 7.4 g/dL (6.5-8.0)
[2020-11-13 13:50] LABS: Erythrocyte Sedimentation Rate 14 MM/HR (0-20)
[2020-11-13 14:01] LABS: Free T4 (Free Thyroxine) < 0.40 ng/dL (0.71-1.85); Vitamin D 25-OH Total 12.7 ng/mL (>30)
[2020-11-13 14:02] LABS: Folate 9.7 ng/mL (> or = 4.0); Vitamin B12 544 pg/mL (200-900)
[2020-11-13 14:08] LABS: Free T4 (Free Thyroxine) < 0.40 ng/dL (0.71-1.85); Vitamin D 25-OH Total 10.5 ng/mL (>30)
[2020-11-13 14:09] LABS: Thyroid Stimulating Hormone > 100.00 uIU/mL (0.32-4.0)
[2020-11-14 15:57] LABS: Calcium (PTHI) 8.4 mg/dL (8.6-10.2); PTHI 71 pg/mL (14-64)
== END 2020-11-13 11:35 | disposition home or self-care (01) ==
LOC: HO.LAB 11:34
PROVIDERS: Nurse Practitioner Family; Absent Provider Internal Medicine; PCP Internal Medicine; Visit Provider Internal Medicine
DX: R20.2 Paresthesia of skin (principal); R53.83 Other fatigue; R60.9 Edema, unspecified; E55.9 Vitamin D deficiency, unspecified; E03.9 Hypothyroidism, unspecified; R52 Pain, unspecified
CPT/HCPCS: 36415; 80053; 82040; 82306; 82310; 82607; 82746; 83970; 84439; 84443; 85025; 85652

== ENCOUNTER 2020-11-14 16:37 | Outpatient (REF) | payer OTHER, SELFPAY ==
[2020-11-17 03:37] LABS: HBc Num1 0.13 S/CO (0.00-0.79); HBsAGNum1 0.16 S/CO (0.00-0.99); Hepatitis B Core Antibody Nonreactive (Nonreactive); Hepatitis B Surface Antigen Negative (Negative); ~HepC Num1 12.35 S/CO (0.00-0.79); ~Hepatitis C Antibody Reactive (Nonreactive)
[2020-11-17 03:50] LABS: HBS Num1 0.32 mIU/mL (0-7.99); ~Hepatitis B Surface Antibody NONREACTIVE (Nonreactive)
[2020-11-19 07:24] LABS: ~Hepatitis A Antibody IgM Nonreactive (Nonreactive)
== END 2020-11-14 16:38 | disposition home or self-care (01) ==
LOC: HO.LAB 16:37
PROVIDERS: PCP Internal Medicine; Visit Provider Internal Medicine
DX: R94.5 Abnormal results of liver function studies (principal)
CPT/HCPCS: 36415; 86704; 86706; 86709; 86803; 87340

== ENCOUNTER 2020-11-20 09:00 | Outpatient (REF) | payer OTHER, SELFPAY ==
--- NOTE | ~2020-11-20 | US_ITS ---
EXAMINATION: US ABDOMEN COMPLETE CLINICAL INFORMATION: Other specified abnormal findings of blood chemistry. COMPARISON: Ultrasound abdomen 06/10/2006. TECHNIQUE: Real-time imaging of the abdominal viscera. FINDINGS: PANCREAS: Normal. ABDOMINAL AORTA: The proximal, mid, and distal segments are normal in caliber. INFERIOR VENA CAVA: Visualized portions are normal. LIVER: The liver is normal in size. The liver contour is normal. Liver echotexture is slightly increased. No focal hepatic lesion. There is no intrahepatic biliary duct dilatation seen. GALLBLADDER: Surgically absent. COMMON BILE DUCT: Normal in caliber measuring 0.3 cm in diameter. RIGHT KIDNEY: Normal. No hydronephrosis. No renal calculi or focal parenchymal lesions. The kidney measures 9.9 cm in maximum dimension. LEFT KIDNEY: Normal. No hydronephrosis. No renal calculi or focal parenchymal lesions. The kidney measures 10.1 cm in maximum dimension. SPLEEN: Normal. The spleen measures 10.0 cm in maximum dimension. FREE FLUID: None. US/US abdomen complete IMPRESSION: Slightly echogenic liver. Differential would include fatty infiltration and hepatocellular disease. The liver is normal in size and contour.
== END 2020-11-20 09:01 | disposition home or self-care (01) ==
LOC: HO.HMGCX 09:00
PROVIDERS: PCP Internal Medicine; Visit Provider Internal Medicine
DX: R79.89 Other specified abnormal findings of blood chemistry (principal)
CPT/HCPCS: 76700

== ENCOUNTER 2021-01-01 11:33 | Outpatient (REF) | payer OTHER, SELFPAY ==
[2021-01-01 14:29] LABS: Alanine Aminotransferase 152 U/L (0-31); Albumin Level 3.8 g/dL (3.5-5.0); Alkaline Phosphatase 61 U/L (39-117); Anion Gap 13 (12-20); Aspartate Amino Transferase 73 U/L (5-31); Bilirubin Total 0.8 mg/dL (0.0-1.0); Blood Urea Nitrogen 10 mg/dL (9-16); Calcium 9.3 mg/dL (8.4-10.2); Carbon Dioxide 26 mmol/L (22-29); Chloride 104 mmol/L (96-108); Estimated Glomerular Filt Rate > 60; Glucose Random 82 mg/dL (60-115); Phosphorus 3.2 mg/dL (2.7-4.5); Potassium 4.6 mmol/L (3.3-5.1); Sodium 138 mmol/L (135-145); Total Protein 7.3 g/dL (6.5-8.0)
[2021-01-01 14:51] LABS: Free T4 (Free Thyroxine) 2.03 ng/dL (0.71-1.85); Thyroid Stimulating Hormone 0.09 uIU/mL (0.32-4.0); Vitamin D 25-OH Total 14.1 ng/mL (>30)
[2021-01-02 11:41] LABS: Calcium (PTHI) 9.3 mg/dL (8.6-10.2); PTHI 35 pg/mL (14-64)
[2021-01-03 01:51] LABS: Thyroglobulin <0.1 ng/mL; Thyroglobulin Antibodies <1 IU/mL (< or = 1)
[2021-01-03 02:35] LABS: Triiodothyronine T3 Total 161 ng/dL (76-181)
== END 2021-01-01 11:34 | disposition home or self-care (01) ==
LOC: HO.LAB 11:33
PROVIDERS: PCP Internal Medicine; Visit Provider Internal Medicine
DX: C73 Malignant neoplasm of thyroid gland (principal); E03.9 Hypothyroidism, unspecified; E55.9 Vitamin D deficiency, unspecified
CPT/HCPCS: 36415; 80053; 82306; 83970; 84100; 84432; 84439; 84443; 84480; 86800; 99212

== ENCOUNTER → 2021-02-02 09:07 | Outpatient (BNVA) | payer OTHER, SELFPAY | PROVIDERS: PCP Internal Medicine; Visit Provider Internal Medicine | DX: Z85.850 Personal history of malignant neoplasm of thyroid (principal) | CPT/HCPCS: 96372 ==

== ENCOUNTER 2021-02-03 09:11 | Outpatient (REF) | payer OTHER, SELFPAY ==
[2021-02-03 10:45] LABS: Albumin Level 3.6 g/dL (3.5-5.0)
[2021-02-03 11:14] LABS: Free T4 (Free Thyroxine) 1.32 ng/dL (0.71-1.85); HCG Quantitative < 2 mIU/mL; Thyroid Stimulating Hormone 79.74 uIU/mL (0.32-4.0)
[2021-02-05 09:26] LABS: Thyroglobulin <0.1 ng/mL; Thyroglobulin Antibodies <1 IU/mL (< or = 1)
[2021-02-05 13:31] LABS: Calcium (PTHI) 9.1 mg/dL (8.6-10.2); PTHI 22 pg/mL (14-64)
== END 2021-02-03 09:12 | disposition home or self-care (01) ==
LOC: HO.LAB 09:11
PROVIDERS: Internal Medicine; PCP Internal Medicine; Visit Provider Nurse Practitioner Gerontology
DX: C73 Malignant neoplasm of thyroid gland (principal); Z85.850 Personal history of malignant neoplasm of thyroid
CPT/HCPCS: 36415; 82040; 82310; 83970; 84432; 84439; 84443; 84702; 86800; 96372

== ENCOUNTER 2021-02-04 08:20 | Outpatient (REF) | payer OTHER, SELFPAY ==
[2021-02-04 13:45] LABS: Thyroid Stimulating Hormone > 100.00 uIU/mL (0.32-4.0)
[2021-02-10 16:36] LABS: Thyroglobulin <0.1 ng/mL; Thyroglobulin Antibodies <1 IU/mL (< or = 1)
== END 2021-02-04 08:21 | disposition home or self-care (01) ==
LOC: HO.LAB 08:20
PROVIDERS: PCP Internal Medicine; Visit Provider Internal Medicine
DX: Z85.850 Personal history of malignant neoplasm of thyroid (principal)
CPT/HCPCS: 36415; 84432; 84443; 86800

== ENCOUNTER → 2021-02-12 08:40 | Outpatient (BNVA) | payer OTHER, SELFPAY | PROVIDERS: PCP Internal Medicine; Visit Provider Internal Medicine ==

== ENCOUNTER 2021-04-12 19:07 | Emergency (ER) | payer OTHER, SELFPAY ==
[2021-04-12 19:45] VITALS: BP 133/64; PULSE 92; RESP 20; TEMP 36.7; O2SAT 100; BMI 36.6
[2021-04-12 20:22] LABS: COVID-19 Test Positive (Negative)
--- NOTE | 2021-04-12 21:15 | ED_ITS ---
HPI - URI/Sore Throat General Chief Complaint: Upper Respiratory Symptoms Stated Complaint: Covid Symptoms Time Seen by Provider: 04/12/21 20:45 Source: patient Mode of arrival: ambulatory Limitations: no limitations History of Present Illness HPI Narrative: 36-year-old female who presents emergency department for evaluation of viral-like illness with symptoms starting yesterday. She states that she has been having subjective fever, body aches, headaches, chills, sore throat. The patient also states that she has a nonproductive cough who feels short of breath. The patient does have a history of asthma and she has been using her inhaler more frequently with only minimal relief for symptoms. She has noted dyspnea on exertion as well. She denied loss of sense of taste or smell or diarrhea. The patient has not been vaccinated for COVID-19. Past medical history is significant for obesity, asthma, thyroid cancer with thyroidectomy in 2019 currently hypothyroid, anxiety. The patient is a smoker. Related Data Home Medications Medication Instructions Recorded Confirmed clonazepam 1 mg tablet (Klonopin) 1 mg PO DAILY 05/22/20 02/12/21 Previous Rx's Medication Instructions Recorded albuterol sulfate 90 mcg/actuation 2 puff INHALATION Q4-6H PRN #8.5 g 03/14/20 aerosol inhaler clonidine HCl 0.2 mg tablet 0.2 mg PO BID-TID PRN #90 tab 09/29/20 albuterol sulfate 2.5 mg (3 mL) INHALATION Q4-6H PRN 10/28/20 #180 ml ibuprofen 600 mg tablet 600 mg PO Q8H PRN #20 tab 11/07/20 nopebhxccw-mkslefskbgdxf-fcwjasiu 1 tab PO Q6-8H PRN 30 Days #90 tab 11/13/20 50 mg-325 mg-40 mg tablet levothyroxine 175 mcg tablet 175 mcg PO DAILY 30 Days #30 tab 01/01/21 doxepin 25 mg capsule 25 mg PO BEDTIME #30 cap 01/20/21 topiramate 25 mg tablet 25 mg PO BEDTIME #30 tab 03/19/21 albuterol sulfate 90 mcg/actuation 2 puff PO Q4-6H PRN #8.5 ea 04/09/21 aerosol inhaler (ProAir HFA) albuterol sulfate 90 mcg/actuation 2 puff INHALATION Q4-6H PRN #8.5 g 04/12/21 aerosol inhaler (ProAir HFA) prednisone 20 mg tablet 60 mg PO DAILY 7 Days #21 tab 04/12/21 Allergies Allergy/AdvReac Type Severity Reaction Status Date / Time iodine [IODINE] Allergy Mild RASH Verified 02/12/21 09:15 morphine [MORPHINE] Allergy Unknown WBC Verified 02/12/21 09:15 ELEVATED/ N/V shellfish derived Allergy Unknown HIVES Verified 02/12/21 09:15 [SHELLFISH DERIVED] Review of Systems Review of Systems: Yes all other systems are reviewed and are negative Constitutional: Constitutional: Reports as per HPI Cardiovascular: Cardiovascular: Reports as per HPI Respiratory: Respiratory: Reports as per HPI Gastrointestinal: Gastrointestinal: Reports as per HPI Genitourinary: Genitourinary: Reports as per HPI Musculoskeletal: Musculoskeletal: Reports as per HPI Integumentary/Breasts: Skin/Breast: Reports as per HPI Neurologic: Reports as per HPI and Reports Abnormal speech present Psychiatric: Psychiatric: Reports as per HPI [facility] Past Medical History [facility] Narrative: Social history: The patient does smoke cigarettes. She denies alcohol use. She denies drug use. Medical History Anxiety Asthma Bilateral lower extremity edema Cervical lymphadenopathy Elevated LFTs History of thyroid cancer Hypothyroidism Morbid obesity with BMI of 40.0-44.9, adult Papillary thyroid carcinoma Post-surgical hypothyroidism Smoker Thyroid cancer Vitamin D deficiency Surgical History Hx of section Hx of cholecystectomy Hx of total thyroidectomy (~05/2020) Family History Family History Father Diabetes Asthma Mother Unknown family medical history Social History Social History Household Members: Family Housing: Apartment Alcohol intake: former Patient Tobacco Use Status: Current everyday Tobacco user Cigarettes Per Day: 3 Years Smoked: 20 years Advance Directives: No Advance Directives Information Provided: No service: No Current occupational status: employed 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 HENMT: Head: Yes normal to inspection, Yes normocephalic and Yes atraumatic Ears: hearing grossly normal bilaterally General nose exam: Normal external nose present Face and sinus: Yes normal facial exam Mouth: Normal oral and palatal mucosa present, lip normal, tongue normal, oropharynx normal and moist mucous membranes Throat: Yes posterior oropharynx normal, Yes tonsils normal and Yes uvula midline Eyes: General: appearance normal, both eyes and all related structures Eyelids: Yes eyelids normal Conjunctivae: conjunctivae normal Sclerae: sclerae normal Corneas: corneas normal Pupils: Equal, round and reactive pupils present Neck: Neck: Yes normal visual inspection, Yes no lymphadenopathy, Yes trachea midline and Yes supple Thyroid: Thyroid normal Lymphatic: no lymphadenopathy noted Chest: Chest palpation & inspection: normal inspection of the chest and normal palpation of entire chest wall Resp: Effort & Inspection: normal respiratory effort and able to speak in co mplete sentences Auscultation: wheezes (Diffuse) Cardio: Rate: regular rate Rhythm: regular rhythm Heart sounds: S1 normal heart sound present, S2 normal heart sound present and no murmurs GI: Inspection: Yes normal to inspection Palpation (GI): Soft to palpation, nontender and No hepatosplenomegaly present Auscultation: normal bowel sounds : General: Yes no CVA tenderness Back/Spine/Pelvis: Back: no CVA tenderness Thoracic/Lumbar Spine: thoracic and lumbar spine normal to inspection Skin: General skin exam: no rashes or lesions noted, no erythema and no jaund ice Lesions: no lesions Rashes: no rashes Trauma: no lacerations or abrasions Wounds: no wounds Neuro: General: moves all extremities and no focal motor deficits Cranial nerves: Yes Equal, round and reactive pupils present Cognition (Neuro): normal cognition Speech: Abnormal speech present Motor exam (neuro): Motor abnormalities not present Extrem: General: Yes normal to inspection, Yes no pedal edema and Yes no calf tenderness Right upper extremity: normal to inspection Left upper extremity: normal to inspection Right lower extremity: normal to inspection Left lower extremity: normal to inspection Psych: Appearance: grossly normal Mental Status: mental status grossly normal Speech and movement: Normal speech and movement present Affect: normal affect Attitude: cooperative Thought process: Normal thought process present Insight: Good insight present (Psych) Course Course Course Narrative: 36-year-old female who presents emergency department for evaluation of viral-like illness x2 days. Patient does have a history of asthma and reports using her inhaler more frequently with no relief of her shortness of breath. The patient has not been vaccinated for COVID-19. Patient's vital signs were normal with a respiratory rate of 20, temperature of 98.1?, blood pressure of 133/64 and pulse of 92, and an O2 saturation of 100% on room air. The patient did have a COVID-19 test which was positive. The patient's is most likely having a flare-up of her asthma secondary to upper respiratory viral infection but I do not think she has viral pneumonia at this time. The patient was started on prednisone 60 mg once a day for 1 week and she was given a dose here in the emergency department . She was also given Tylenol 975 mg orally for her body aches. I did contact the [facility] COVID-19 monoclonal treatment clinic . I referred the patient to this clinic since the patient is at high risk for serious COVID-19 pneumonia given her asthma, obesity and history of thyroid cancer. The patient was given verbal and printed instructions and discharged home. MDM - URI/Sore Throat Lab Data Labs: Lab Results 04/12/21 Range/Units 20:04 COVID-19 ([facility]) Positive A (Negative) COVID-19 Clin Com See Note Discharge Plan Discharge Clinical Impression: COVID-19 virus infection Asthma exacerbation Qualifiers: Asthma severity: mild Asthma persistence: unspecified Qualified Code(s): J45.901 - Unspecified asthma with (acute) exacerbation Patient Disposition: Home, Self-Care Instructions: COVID-19 (Coronavirus Disease 2019) (ED) Additional Instructions: Your COVID-19 RNA/PCR test was positive here in the emergency department. At this time, your O2 saturation is 100% on room air which is reassuring. We hospitalized people for COVID-19 when her O2 saturation drops below 88%. The COVID-19 infection is causing your asthma to flare up. I am treating her asthma flare up with prednisone 60 mg once a day for 7 days. Use your albuterol inhaler 2 puffs every 4 hours as needed for shortness of breath. You qualify for COVID-19 monoclonal antibody therapy based on the fact that you have asthma, you have a history of thyroid cancer and your obese with a BMI of 36.6. I referred you to the [facility] COVID-19 monotherapy clinic, I left a phone message on their answering machine with your contact number. This clinic should contact to tomorrow, if you do not hear from them tomorrow then call the [facility] main number and asked to speak to someone in the monoclonal antibody clinic about getting treatment since he referred today by me. . Please return to the emergency department if your symptoms get worse or if you develop any symptoms that are concerning to you. Prescriptions: New prednisone 20 mg tablet 60 mg PO DAILY 7 Days Qty: 21 RF: 0 albuterol sulfate [ProAir HFA] 90 mcg/actuation HFA aerosol inhaler 2 puff inhalation Q4-6H PRN (Reason: shortness of breath or wheezing) Qty: 8.5 RF: 0 No Action albuterol sulfate 90 mcg/actuation HFA aerosol inhaler 2 puff inhalation Q4-6H PRN (Reason: shortness of breath or wheezing) Qty: 8.5 RF: 0 clonidine HCl 0.2 mg tablet 0.2 mg PO BID-TID PRN (Reason: for anxiety) Qty: 90 RF: 0 levothyroxine 175 mcg tablet 175 mcg PO DAILY 30 Days Qty: 30 RF: 4 doxepin 25 mg capsule 25 mg PO BEDTIME Qty: 30 RF: 1 topiramate 25 mg tablet 25 mg PO BEDTIME Qty: 30 RF: 3 albuterol sulfate [ProAir HFA] 90 mcg/actuation HFA aerosol inhaler 2 puff PO Q4-6H PRN (Reason: for wheezing) Qty: 8.5 RF: 3 ibuprofen 600 mg tablet 600 mg PO Q8H PRN (Reason: pain) Qty: 20 RF: 0 albuterol sulfate 2.5 mg /3 mL (0.083 %) solution for nebulization 2.5 mg inhalation Q4-6H PRN (Reason: shortness of breath or wheezing) Qty: 180 RF: 0 vwaeckhcho-lbsllacpoqbcb-pvjy 50-325-40 mg tablet 1 tab PO Q6-8H PRN (Reason: headaches) 30 Days Qty: 90 RF: 1 clonazepam [Klonopin] 1 mg tablet 1 mg PO DAILY RF: 0
[2021-04-12] MEDS: predniSONE 20 MG TABLET 60 MG PO (21:50)
[2021-04-12] MEDS: Acetaminophen 325 MG TABLET 975 MG PO (21:50)
== END 2021-04-12 21:51 | disposition home or self-care (01) ==
PROVIDERS: Emergency Provider Emergency Medicine Emergency Medical Services; PCP Internal Medicine
DX: U07.1 COVID-19 (principal); Z85.850 Personal history of malignant neoplasm of thyroid; F17.200 Nicotine dependence, unspecified, uncomplicated
CPT/HCPCS: 36415; 87635; 99283

== ENCOUNTER 2021-06-04 13:34 | Outpatient (REF) | payer OTHER, SELFPAY ==
[2021-06-04 14:39] LABS: Phosphorus 4.2 mg/dL (2.7-4.5)
[2021-06-04 14:54] LABS: Free T4 (Free Thyroxine) 1.63 ng/dL (0.71-1.85); Thyroid Stimulating Hormone 0.03 uIU/mL (0.32-4.0); Vitamin D 25-OH Total 10.5 ng/mL (>30)
[2021-06-08 13:31] LABS: Calcium (PTHI) 9.8 mg/dL (8.6-10.2); PTHI 24 pg/mL (14-64)
== END 2021-06-04 13:35 | disposition home or self-care (01) ==
LOC: HO.LAB 13:34
PROVIDERS: PCP Internal Medicine; Visit Provider Internal Medicine
DX: Z85.850 Personal history of malignant neoplasm of thyroid (principal); C73 Malignant neoplasm of thyroid gland
CPT/HCPCS: 36415; 82306; 83970; 84100; 84439; 84443

== ENCOUNTER 2021-07-06 13:54 | Outpatient (REF) | payer OTHER, SELFPAY ==
--- NOTE | ~2021-07-06 | XR_ITS ---
EXAMINATION:XR foot RT 2V, XR foot LT 2V VIEWS ACQUIRED: Frontal lateral and oblique CLINICAL INFORMATION: Pain COMPARISON: None available at the time of this dictation. FINDINGS: There is no evidence of acute fracture or dislocation. Intertarsal, tarsometatarsal, metatarsophalangeal and interphalangeal joints are intact. Surrounding soft tissues is normal. , There are no calcaneal spurs. Surrounding soft tissues unremarkable. XR/XR foot LT 2V IMPRESSION: No significant osseous changes to explain patient's pain symptoms.
--- NOTE | ~2021-07-06 | XR_ITS ---
EXAMINATION:XR foot RT 2V, XR foot LT 2V VIEWS ACQUIRED: Frontal lateral and oblique CLINICAL INFORMATION: Pain COMPARISON: None available at the time of this dictation. FINDINGS: There is no evidence of acute fracture or dislocation. Intertarsal, tarsometatarsal, metatarsophalangeal and interphalangeal joints are intact. Surrounding soft tissues is normal. , There are no calcaneal spurs. Surrounding soft tissues unremarkable. XR/XR foot RT 2V IMPRESSION: No significant osseous changes to explain patient's pain symptoms.
[2021-07-06 14:08] LABS: MANUAL DIFF FLAG NO
[2021-07-06 14:46] LABS: Basophils Absolute Auto 0.1 X10*3/uL (0.0-0.2); Basophils Percent Auto 0.5 % (0-2); Eosinophils Absolute Auto 0.6 X10*3/uL (0.0-0.4); Eosinophils Percent Auto 6.1 % (0-4); Hematocrit 40.4 % (37.0-47.0); Hemoglobin 13.1 g/dl (12.0-16.0); Imm Gran Abs Auto 0.03 X10*3/uL (0.00-0.03); Imm Gran Pct Auto 0.3 % (0.0-0.4); Lymphocytes Absolute Auto 2.8 X10*3/uL (1.2-4.9); Mean Corpuscular HGB Conc 32.4 g/dl (31.0-35.0); Mean Corpuscular Volume 92.4 fL (80.0-98.0); Mean Platelet Volume 9.3 fL (9.4-12.3); Monocytes Absolute Auto 0.8 X10*3/uL (0.1-1.2); Monocytes Percent Auto 8.3 % (2-11); Neutrophils Absolute Auto 5.6 x10*3/uL (2.0-8.3); Neutrophils Percent Auto 56.8 % (45-73); Platelet Count 371 X10*3/uL (160-400); Red Blood Count 4.37 X10*6/uL (4.20-5.50); Red Cell Distribution Width 12.9 % (11.0-16.0); White Blood Count 9.8 X10*3/uL (4.8-10.8)
[2021-07-06 14:50] LABS: Appearance Urine CLOUDY; Color Urine YELLOW; Glucose Urine UA NEG (NEG); Leukocyte Esterase Urine 3+ (NEG); Nitrite Urine NEG (NEG); Specific Gravity - Urine 1.025 (1.005-1.025); UACC Culture Trigger YES; Urine Blood TRACE (NEG); Urine Ketones NEG (NEG); Urine Protein NEG (NEG-TRACE)
[2021-07-06 14:59] LABS: Bacteria Urine TRACE /LPF; RBC Urine 0-2 /HPF (0); Squamous Epithelial Cell Urine 4+ /LPF; Trichomonas Urine NOTED
[2021-07-06 15:31] LABS: Alanine Aminotransferase 18 U/L (0-31); Albumin Level 3.8 g/dL (3.5-5.0); Alkaline Phosphatase 63 U/L (39-117); Anion Gap 9 (12-20); Aspartate Amino Transferase 16 U/L (5-31); Bilirubin Total 0.4 mg/dL (0.0-1.0); Blood Urea Nitrogen 14 mg/dL (9-16); Calcium 9.4 mg/dL (8.4-10.2); Carbon Dioxide 27 mmol/L (22-29); Chloride 108 mmol/L (96-108); Cholesterol 141 mg/dL; Estimated Glomerular Filt Rate > 60; Glucose Fasting 77 mg/dL (60-99); HDL Cholesterol 38 mg/dL; LDL Cholesterol Calculated 88 mg/dl; Potassium 4.3 mmol/L (3.3-5.1); Sodium 140 mmol/L (135-145); Total Protein 7.6 g/dL (6.5-8.0); Triglycerides 78 mg/dL
[2021-07-06 15:36] LABS: Free T4 (Free Thyroxine) 1.12 ng/dL (0.71-1.85); Thyroid Stimulating Hormone 2.67 uIU/mL (0.32-4.0); Vitamin D 25-OH Total 31.7 ng/mL (>30)
[2021-07-06 15:45] LABS: Erythrocyte Sedimentation Rate 23 MM/HR (0-20)
== END 2021-07-06 13:55 | disposition home or self-care (01) ==
LOC: HO.LAB 13:54
PROVIDERS: PCP Internal Medicine; Visit Provider Internal Medicine
DX: E78.00 Pure hypercholesterolemia, unspecified (principal); M79.7 Fibromyalgia; I10 Essential (primary) hypertension; E03.9 Hypothyroidism, unspecified; E55.9 Vitamin D deficiency, unspecified; M79.672 Pain in left foot; M79.671 Pain in right foot
CPT/HCPCS: 36415; 73620; 80053; 80061; 81001; 82306; 84439; 84443; 85025; 85652; 86140; 87086

== ENCOUNTER 2021-07-10 16:43 | Emergency (ER) | payer OTHER, SELFPAY ==
[2021-07-10 16:54] VITALS: BP 115/74; PULSE 93; RESP 20; TEMP 36.2; O2SAT 98; BMI 42.7
[2021-07-10 19:08] LABS: MANUAL DIFF FLAG NO
[2021-07-10 19:09] LABS: Basophils Absolute Auto 0.1 X10*3/uL (0.0-0.2); Basophils Percent Auto 0.5 % (0-2); Eosinophils Absolute Auto 0.8 X10*3/uL (0.0-0.4); Eosinophils Percent Auto 8.7 % (0-4); Hematocrit 43.2 % (37.0-47.0); Hemoglobin 14.2 g/dl (12.0-16.0); Imm Gran Abs Auto 0.01 X10*3/uL (0.00-0.03); Imm Gran Pct Auto 0.1 % (0.0-0.4); Lymphocytes Absolute Auto 3.1 X10*3/uL (1.2-4.9); Lymphocytes Percent Auto 32.5 % (20-40); Mean Corpuscular HGB Conc 32.9 g/dl (31.0-35.0); Mean Corpuscular Hemoglobin 30.5 pg (27.0-33.0); Mean Corpuscular Volume 92.7 fL (80.0-98.0); Mean Platelet Volume 9.1 fL (9.4-12.3); Monocytes Absolute Auto 0.6 X10*3/uL (0.1-1.2); Neutrophils Percent Auto 52.2 % (45-73); Platelet Count 395 X10*3/uL (160-400); Red Blood Count 4.66 X10*6/uL (4.20-5.50); Red Cell Distribution Width 13.1 % (11.0-16.0); White Blood Count 9.5 X10*3/uL (4.8-10.8)
[2021-07-10 19:26] LABS: Alanine Aminotransferase 15 U/L (0-31); Albumin Level 3.9 g/dL (3.5-5.0); Alkaline Phosphatase 64 U/L (39-117); Anion Gap 12 (12-20); Aspartate Amino Transferase 17 U/L (5-31); Bilirubin Direct < 0.2 mg/dL (0.0-0.5); Bilirubin Total 0.4 mg/dL (0.0-1.0); Blood Urea Nitrogen 14 mg/dL (9-16); Carbon Dioxide 25 mmol/L (22-29); Chloride 106 mmol/L (96-108); Creatinine Clr Calc Pharmacy 109.8; Estimated Glomerular Filt Rate > 60; Glucose Random 79 mg/dL (60-115); Lipase 38 U/L (8-78); Potassium 4.1 mmol/L (3.3-5.1); Sodium 139 mmol/L (135-145); Total Protein 7.7 g/dL (6.5-8.0)
== END 2021-07-10 23:03 | disposition left against medical advice (07) ==
PROVIDERS: Emergency Provider Emergency Medicine; PCP Internal Medicine
DX: M79.10 Myalgia, unspecified site (principal); R20.0 Anesthesia of skin; F17.200 Nicotine dependence, unspecified, uncomplicated
CPT/HCPCS: 36415; 80048; 80076; 83690; 85025; 99282; 99283

== ENCOUNTER 2021-07-15 08:58 | Emergency (ER) | payer OTHER, SELFPAY ==
--- NOTE | ~2021-07-15 | XR_ITS ---
EXAMINATION: XR CHEST CLINICAL INFORMATION: Shortness of breath and cough. COMPARISON: Chest x-ray 11/15/2019 TECHNIQUE: 2 views of the chest were obtained. FINDINGS: No significant abnormality is noted involving the heart, lungs, mediastinum, bony thorax or soft tissues. XR/XR chest 2V IMPRESSION: Unremarkable chest examination.
[2021-07-15 09:00] VITALS: BP 120/76; PULSE 106; RESP 24; TEMP 36.6; O2SAT 94; BMI 42.7
--- NOTE | 2021-07-15 09:50 | ECG_ITS ---
Test Reason : upper resp Blood Pressure : / mmHG Vent. Rate : 083 BPM Atrial Rate : 083 BPM P-R Int : 102 ms QRS Dur : 086 ms QT Int : 382 ms P-R-T Axes : 015 044 033 degrees QTc Int : 448 ms Sinus rhythm with short KS Otherwise normal ECG When compared with ECG of 10-DEC-2018 18:18, No significant change was found Referred By: Pina Pierce Electronically Signed By:Adriel Hoskins
--- NOTE | 2021-07-15 10:20 | ED.SOB ---
HPI - SOB/Dyspnea General Chief Complaint: Upper Respiratory Symptoms Stated Complaint: ASTHMA DIFF BREATHING Time Seen by Provider: 07/15/21 09:41 Source: patient Mode of arrival: ambulatory Limitations: no limitations History of Present Illness HPI Narrative: Patient is a 36-year-old female with a past medical history of fibromyalgia, anxiety, papillary thyroid cancer status post thyroidectomy, migraines, tobacco abuse, asthma. She presented today concerned for an asthma exacerbation. She states that she has been feeling increasingly short of breath with increasing nonproductive cough over the past week. She states she has been using a nebulizer machine in addition to her albuterol inhaler without a spacer every 2-3 hours without significant improvement. She reports shortness of breath at rest in addition to exertion. She is having a left anterior chest pain that is worse with deep inspiration. She denies fevers, chills, nasal congestion sore throat, nausea, vomiting, diarrhea, abdominal pain, pedal edema. Denies lower extremity pain, swelling, erythema, recent extended travel or immobilization, surgical procedure, past history of DVT/PE, she does have a history of papillary thyroid cancer status post thyroidectomy in 2019 and she is a cigarette smoker. Denies any sick contacts. She tested positive for COVID-19 in April 2021. She has not been vaccinated for COVID-19. MD elicited complaint: shortness of breath, cough, pain with inspiration and chest pain Pertinent past history: asthma Onset (ago): week(s) Timing: constant Severity: similar to previous episodes Exacerbating factors: lying flat, exertion and coughing Relieving factors: nothing Known history of: asthma Associated symptoms: chest pain, pain with inspiration and wheezing Treatment prior to arrival: bronchodilator Related Data Home oxygen amount: none Home Medications Medication Instructions Recorded Confirmed clonazepam 1 mg tablet (Klonopin) 1 mg PO DAILY 05/22/20 07/04/21 Previous Rx's Medication Instructions Recorded albuterol sulfate 90 mcg/actuation 2 puff INHALATION Q4-6H PRN #8.5 g 03/14/20 aerosol inhaler clonidine HCl 0.2 mg tablet 0.2 mg PO BID-TID PRN #90 tab 09/29/20 albuterol sulfate 2.5 mg (3 mL) INHALATION Q4-6H PRN 10/28/20 #180 ml ibuprofen 600 mg tablet 600 mg PO Q8H PRN #20 tab 11/07/20 dddvsqlnjf-tpzlkgjlcchbw-doyzxwsm 1 tab PO Q6-8H PRN 30 Days #90 tab 11/13/20 50 mg-325 mg-40 mg tablet doxepin 25 mg capsule 25 mg PO BEDTIME #30 cap 01/20/21 topiramate 25 mg tablet 25 mg PO BEDTIME #30 tab 03/19/21 albuterol sulfate 90 mcg/actuation 2 puff PO Q4-6H PRN #8.5 ea 04/09/21 aerosol inhaler (ProAir HFA) calcium citrate 250 mg PO DAILY 30 Days #30 tab 04/13/21 cholecalciferol (vitamin D3) 1,250 1,250 mcg PO QWEEK 56 Days #8 cap 06/08/21 mcg (50,000 unit) capsule cholecalciferol (vitamin D3) 50 50 mcg PO DAILY 30 Days #30 cap 06/08/21 mcg (2,000 unit) capsule levothyroxine 150 mcg tablet 150 mcg PO DAILY 30 Days #30 tab 06/08/21 albuterol sulfate 90 mcg/actuation 2 puff INHALATION Q4-6H PRN #8.5 g 07/03/21 aerosol inhaler (ProAir HFA) fluticasone propionate 115 2 puff INHALATION BID 30 Days #12 g 07/03/21 mcg-salmeterol 21 mcg/actuation HFA inhaler (Advair HFA) NEBULIZER #1 ea 07/04/21 gabapentin 100 mg capsule 100 mg PO BID #60 cap 07/15/21 prednisone 20 mg tablet 60 mg PO DAILY 7 Days #21 tab 07/15/21 Allergies Allergy/AdvReac Type Severity Reaction Status Date / Time iodine [IODINE] Allergy Mild RASH Verified 07/04/21 15:25 morphine [MORPHINE] Allergy Unknown WBC Verified 07/04/21 15:25 ELEVATED/ N/V shellfish derived Allergy Unknown HIVES Verified 07/04/21 15:25 [SHELLFISH DERIVED] Review of Systems Review of Systems: Constitutional : No Fever, No Chills ENT/Mouth : No Hoarseness, No sore throat, No Rhinorrhea Eyes: No Redness, No Discharge, No Vision Changes Cardiovascular : positive Chest Pain, positive SOB, positive Dyspnea on Exertion, No Edema Respiratory : positive Cough, No Sputum, positive Wheezing, Gastrointestinal : No Nausea, No Vomiting, No Diarrhea, No abdominal Pain Genitourinary : No Dysuria, No Hematuria Musculoskeletal : No joint pain, No Myalgias Skin : No rash Neuro : No Weakness, No Numbness, No Headache Psych : No anxiety, depression Heme/Lymph: No Bruising, No Bleeding Endocrine : No Polyuria, No Polydipsia All other systems reviewed and are negative [facility] Past Medical History Attestation statement: The following information was validated with the patient. Source: old records reviewed Medical History Anxiety Asthma Bilateral foot pain Bilateral lower extremity edema Cervical lymphadenopathy Elevated LFTs Fibromyalgia History of thyroid cancer Hypothyroidism Migraine Morbid obesity with BMI of 40.0-44.9, adult Papillary thyroid carcinoma Post-surgical hypothyroidism Smoker Thyroid cancer Vitamin D deficiency Surgical History Hx of section Hx of cholecystectomy Hx of total thyroidectomy (~05/2020) Family History Family History Father Diabetes Asthma Mother Unknown family medical history Social History Social History Household Members: Family Housing: Apartment Alcohol intake: former Patient Tobacco Use Status: Current everyday Tobacco user Cigarettes Per Day: 1 Years Smoked: 20 years Second Hand Smoke Exposure: Yes Advance Directives: No Advance Directives Information Provided: No Patient : No service: No Current occupational status: employed 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 Blood pressure normal.? Heart rate initially elevated 106, improved to 91.? Respiration rate initially increased at 24, improved to 19. Temperature normal.? Oxygen saturation normal. Appearance: Alert.?Oriented to person, place and time. No acute distress.?Normal affect. Eyes: Pupils equal, round and reactive to light.? ENT: Pharynx normal.?? Neck: Normal inspection.? Neck supple.?? CVS: Heart sounds normal. Normal heart rate and rhythm.? Pulses normal.?? Respiratory: No respiratory distress. Speaks in clear full sentences, maintaining airway and managing secretions appropriately. Lung sounds tight bilaterally with expiratory wheezing? Abdomen: Soft and non-tender. Normoactive bowel sounds. ? Skin: Skin warm and dry.? Normal skin color.? ?? Extremities: No lower extremity edema.? No calf ttp? Neuro: Moves all extremities spontaneously. Sensation intact bilaterally. No focal neuro deficits. Ambulates with normal steady gait. Course Course Course Narrative: Patient is a 36-year-old female being evaluated for increasingly worsening shortness of breath over the past week, consistent with prior asthma exacerbations by her as reports. Her asthma is currently being managed with Advair in addition to albuterol by her primary care provider, and she has an initial appointment with pulmonology next month. She reports she has not had an asthma exacerbation requiring oral steroids since April 2021, nearly 3 months ago. Her history and physical exam are not consistent with status asthmaticus, pneumothorax, heart failure, she has no stridor unilateral wheezing to suggest airway obstruction. Will obtain CBC to evaluate for leukocytosis, anemia, BMP to evaluate for abnormal electrolytes are abnormal renal function, reviewed PERC score given tachycardia and O2 saturation 94% on room air will obtain D-dimer to exclude pulmonary embolism, EKG and troponin to evaluate for arrhythmia or ischemia, chest x-ray to evaluate for pneumonia or mass, COVID-19 testing to be obtained. Patient received DuoNeb updraft in addition to oral prednisone. Disposition pending results. Reevaluation(s) Reevaluation #1: Her COVID-19 testing is negative. CBC is unremarkable. EKG reveals sinus rhythm, unremarkable for ischemia, with negative troponin. D-dimer is normal, <150 therefore unlikely to be pulmonary embolism. Patient reports significant improvement after receiving nebulizer treatment and prednisone. Her lung sounds have improved she has some mild expiratory wheezing to bilateral upper lobes but is significantly improved. She reports that she does have an albuterol inhaler at home in addition to albuterol solution for her nebulizer. She is nontoxic appearing, afebrile, not tachycardic, no hypoxia. Suspect that this is likely an exacerbation of her asthma, we will discharge patient home with prednisone taper, follow-up with her primary care provider in 1-3 days, and reviewed reasons to return to the emergency department. All questions answered, patient is agreeable with plan of care Time: 11:52 MDM - SOB/Dyspnea Medical Records Attestation: I reviewed the patient's medical records. Lab Data Attestation: I reviewed the patient's lab results. Result diagrams: 07/15/21 11:13 07/15/21 11:13 Labs: Lab Results 07/15/21 07/15/21 07/15/21 Range/Units 09:59 11:13 11:13 WBC 8.3 (4.8-10.8) X10*3/uL RBC 4.32 (4.20-5.50) X10*6/uL Hgb 13.2 (12.0-16.0) g/dl Hct 40.2 (37.0-47.0) % MCV 93.1 (80.0-98.0) fL MCH 30.6 (27.0-33.0) pg MCHC 32.8 (31.0-35.0) g/dl RDW 12.9 (11.0-16.0) % Plt Count 343 (160-400) X10*3/uL MPV 9.1 L (9.4-12.3) fL Immature Gran % (Auto) 0.2 (0.0-0.4) % Neut % (Auto) 56.8 (45-73) % Lymph % (Auto) 29.4 (20-40) % Towns % (Auto) 7.0 (2-11) % Eos % (Auto) 6.1 H (0-4) % Baso % (Auto) 0.5 (0-2) % Lymph # (Auto) 2.5 (1.2-4.9) X10*3/uL Towns # (Auto) 0.6 (0.1-1.2) X10*3/uL Eos # (Auto) 0.5 H (0.0-0.4) X10*3/uL Baso # (Auto) 0.0 (0.0-0.2) X10*3/uL Abs Immat Gran (auto) 0.02 (0.00-0.03) X10*3/uL Absolute Neuts (auto) 4.7 (2.0-8.3) x10*3/uL Absolute Nucleated RBC 0.000 (0.0-0.012) X10*3/uL Nucleated RBC % (auto) 0.0 (0.0-0.2) /100WBC D-Dimer High Sensitivty < 150 NG/ML Sodium (135-145) mmol/L Potassium (3.3-5.1) mmol/L Chloride (96-108) mmol/L Carbon Dioxide (22-29) mmol/L Anion Gap (12-20) Creatinine (0.5-1.4) mg/dL Estim Creat Clear Calc Estimated GFR Random Glucose (60-115) mg/dL Troponin I High Sens (<3.5-17.0) ng/L COVID-19 ([facility]ER) Negative (Negative) COVID-19 Clin Com See Note 07/15/21 07/15/21 Range/Units 11:13 11:13 WBC (4.8-10.8) X10*3/uL RBC (4.20-5.50) X10*6/uL Hgb (12.0-16.0) g/dl Hct (37.0-47.0) % MCV (80.0-98.0) fL MCH (27.0-33.0) pg MCHC (31.0-35.0) g/dl RDW (11.0-16.0) % Plt Count (160-400) X10*3/uL MPV (9.4-12.3) fL Immature Gran % (Auto) (0.0-0.4) % Neut % (Auto) (45-73) % Lymph % (Auto) (20-40) % Towns % (Auto) (2-11) % Eos % (Auto) (0-4) % Baso % (Auto) (0-2) % Lymph # (Auto) (1.2-4.9) X10*3/uL Towns # (Auto) (0.1-1.2) X10*3/uL Eos # (Auto) (0.0-0.4) X10*3/uL Baso # (Auto) (0.0-0.2) X10*3/uL Abs Immat Gran (auto) (0.00-0.03) X10*3/uL Absolute Neuts (auto) (2.0-8.3) x10*3/uL Absolute Nucleated RBC (0.0-0.012) X10*3/uL Nucleated RBC % (auto) (0.0-0.2) /100WBC D-Dimer High Sensitivty NG/ML Sodium 138 (135-145) mmol/L Potassium 4.4 (3.3-5.1) mmol/L Chloride 106 (96-108) mmol/L Carbon Dioxide 26 (22-29) mmol/L Anion Gap 10 L (12-20) Creatinine 0.80 (0.5-1.4) mg/dL Estim Creat Clear Calc 115.3 Estimated GFR > 60 Random Glucose 90 (60-115) mg/dL Troponin I High Sens < 3.5 (<3.5-17.0) ng/L COVID-19 ([facility]) (Negative) COVID-19 Clin Com Imaging Data Chest x-ray: Attestation: I personally reviewed and interpreted this imaging study as follows: Radiologist's impression: IMPRESSION: Unremarkable chest examination. ECG Data Attestation: I personally reviewed and interpreted this ECG as follows: ECG interpretation date: 07/15/21 ECG interpretation time: 10:30 Prior ECG tracings: available for review Interpretation: Rate: 83 Rhythm:? Sinus rhythm with short [place]:? Normal P waves.? Short JIMMY, 102.?? Normal QRS complex.?? ST T wave :??No ST elevation, depression, or T-wave inversions qTC: 448 prior studies:? December 2018 The study has been interpreted contemporaneously by me. Discharge Plan Discharge Clinical Impression: Asthma exacerbation Patient Disposition: Home, Self-Care Instructions: Asthma (ED) Additional Instructions: You had COVID-19 testing today in the emergency department was negative. Your O2 saturation has remained above 94% while in the emergency department. For having an exacerbation of your asthma, we are going to treat this with prednisone 60 mg once a day for 7 days. Continue to use your albuterol inhaler 2 puffs every 4 hours as needed for shortness of breath. Please contact your primary care provider to schedule follow-up appointment in 1-3 days. You may return to the emergency department with any new or worsening concerns or symptoms Prescriptions: New prednisone 20 mg tablet 60 mg PO DAILY 7 Days Qty: 21 0RF No Action albuterol sulfate 90 mcg/actuation HFA aerosol inhaler 2 puff inhalation Q4-6H PRN (Reason: shortness of breath or wheezing) Qty: 8.5 0RF clonidine HCl 0.2 mg tablet 0.2 mg PO BID-TID PRN (Reason: for anxiety) Qty: 90 0RF doxepin 25 mg capsule 25 mg PO BEDTIME Qty: 30 1RF topiramate 25 mg tablet 25 mg PO BEDTIME Qty: 30 3RF albuterol sulfate [ProAir HFA] 90 mcg/actuation HFA aerosol inhaler 2 puff PO Q4-6H PRN (Reason: for wheezing) Qty: 8.5 3RF calcium citrate 250 mg calcium tablet 250 mg PO DAILY 30 Days Qty: 30 2RF levothyroxine 150 mcg tablet 150 mcg PO DAILY 30 Days Qty: 30 3RF cholecalciferol (vitamin D3) 50 mcg (2,000 unit) capsule 50 mcg PO DAILY 30 Days Qty: 30 11RF cholecalciferol (vitamin D3) 1,250 mcg (50,000 unit) capsule 1,250 mcg PO QWEEK 56 Days Qty: 8 0RF gabapentin 100 mg capsule 100 mg PO BID Qty: 60 1RF ibuprofen 600 mg tablet 600 mg PO Q8H PRN (Reason: pain) Qty: 20 0RF albuterol sulfate 2.5 mg /3 mL (0.083 %) solution for nebulization 2.5 mg inhalation Q4-6H PRN (Reason: shortness of breath or wheezing) Qty: 180 0RF iljivzyinc-lhzhmywwfuwur-tuos 50-325-40 mg tablet 1 tab PO Q6-8H PRN (Reason: headaches) 30 Days Qty: 90 1RF Advair HFA 115-21 mcg/actuation HFA aerosol inhaler 2 puff inhalation BID 30 Days Qty: 12 3RF Rx Instructions: administer with spacer albuterol sulfate [ProAir HFA] 90 mcg/actuation HFA aerosol inhaler 2 puff inhalation Q4-6H PRN (Reason: shortness of breath or wheezing) Qty: 8.5 3RF (DME) NEBULIZER See Rx Instructions .Route .MEDSUPPLY Qty: 1 0RF Rx Instructions: Use as directed as needed clonazepam [Klonopin] 1 mg tablet 1 mg PO DAILY 0RF Interventions: ED Discharge Assessment Last Done: 07/15/21 12:41 Discharge Date/Time: 07/15/21 12:41
[2021-07-15] MEDS: predniSONE 20 MG TABLET 60 MG PO (10:33)
[2021-07-15 10:35] LABS: COVID-19 Test Negative (Negative)
[2021-07-15] MEDS: Albuterol Sulfate (0.083%) 2.5 MG/3 ML VIAL.NEB 10 MG INHALE (10:53)
[2021-07-15 10:56] VITALS: PULSE 79; RESP 98; O2SAT 18
[2021-07-15 11:01] VITALS: BP 105/67; PULSE 78; RESP 13
[2021-07-15 11:18] LABS: MANUAL DIFF FLAG NO
[2021-07-15 11:25] LABS: Basophils Percent Auto 0.5 % (0-2); Eosinophils Absolute Auto 0.5 X10*3/uL (0.0-0.4); Eosinophils Percent Auto 6.1 % (0-4); Hematocrit 40.2 % (37.0-47.0); Hemoglobin 13.2 g/dl (12.0-16.0); Imm Gran Abs Auto 0.02 X10*3/uL (0.00-0.03); Imm Gran Pct Auto 0.2 % (0.0-0.4); Lymphocytes Absolute Auto 2.5 X10*3/uL (1.2-4.9); Lymphocytes Percent Auto 29.4 % (20-40); Mean Corpuscular HGB Conc 32.8 g/dl (31.0-35.0); Mean Corpuscular Hemoglobin 30.6 pg (27.0-33.0); Mean Corpuscular Volume 93.1 fL (80.0-98.0); Mean Platelet Volume 9.1 fL (9.4-12.3); Monocytes Absolute Auto 0.6 X10*3/uL (0.1-1.2); Neutrophils Absolute Auto 4.7 x10*3/uL (2.0-8.3); Neutrophils Percent Auto 56.8 % (45-73); Platelet Count 343 X10*3/uL (160-400); Red Blood Count 4.32 X10*6/uL (4.20-5.50); Red Cell Distribution Width 12.9 % (11.0-16.0); White Blood Count 8.3 X10*3/uL (4.8-10.8)
[2021-07-15 11:33] LABS: D Dimer High Sensitivity < 150 NG/ML
[2021-07-15 11:39] VITALS: BP 113/66; PULSE 91; RESP 19; TEMP 36.6; O2SAT 100
[2021-07-15 11:45] LABS: Troponin-I High Sensitivity < 3.5 ng/L (<3.5-17.0)
[2021-07-15 12:12] LABS: Anion Gap 10 (12-20); Carbon Dioxide 26 mmol/L (22-29); Chloride 106 mmol/L (96-108); Creatinine Clr Calc Pharmacy 115.3; Estimated Glomerular Filt Rate > 60; Glucose Random 90 mg/dL (60-115); Potassium 4.4 mmol/L (3.3-5.1); Sodium 138 mmol/L (135-145)
[2021-07-15 15:01] LABS: Blood Urea Nitrogen 13 mg/dL (9-16); Calcium 9.1 mg/dL (8.4-10.2)
== END 2021-07-15 12:41 | disposition home or self-care (01) ==
PROVIDERS: Nurse Practitioner Family; Emergency Provider Emergency Medicine; PCP Internal Medicine
DX: J45.901 Unspecified asthma with (acute) exacerbation (principal); Z20.822 Contact with and (suspected) exposure to COVID-19; F17.200 Nicotine dependence, unspecified, uncomplicated; Z79.51 Long term (current) use of inhaled steroids; Z79.899 Other long term (current) drug therapy; Z85.850 Personal history of malignant neoplasm of thyroid
CPT/HCPCS: 36415; 71046; 80048; 84484; 85025; 85379; 87635; 93005; 94640; 94644; 99284

== ENCOUNTER 2021-07-31 11:22 | Outpatient (REF) | payer OTHER, SELFPAY ==
[2021-07-31 12:38] LABS: MANUAL DIFF FLAG NO
[2021-07-31 14:07] LABS: Basophils Percent Auto 0.3 % (0-2); Eosinophils Absolute Auto 0.9 X10*3/uL (0.0-0.4); Eosinophils Percent Auto 6.8 % (0-4); Hematocrit 40.6 % (37.0-47.0); Imm Gran Abs Auto 0.07 X10*3/uL (0.00-0.03); Imm Gran Pct Auto 0.5 % (0.0-0.4); Lymphocytes Absolute Auto 2.9 X10*3/uL (1.2-4.9); Lymphocytes Percent Auto 22.4 % (20-40); Mean Corpuscular Hemoglobin 30.3 pg (27.0-33.0); Mean Corpuscular Volume 94.6 fL (80.0-98.0); Mean Platelet Volume 9.6 fL (9.4-12.3); Monocytes Absolute Auto 0.9 X10*3/uL (0.1-1.2); Monocytes Percent Auto 7.2 % (2-11); Neutrophils Percent Auto 62.8 % (45-73); Platelet Count 342 X10*3/uL (160-400); Red Blood Count 4.29 X10*6/uL (4.20-5.50); Red Cell Distribution Width 13.6 % (11.0-16.0); White Blood Count 12.8 X10*3/uL (4.8-10.8)
--- NOTE | 2021-07-31 16:54 | PFT_ITS ---
INDICATION: Asthma. SPIROMETRY: The FEV1 to FVC of 63% with an FEV1 of 2.3 L, which is 79% predicted and FVC of 3.65 L, which is 105% predicted. Bronchodilators were not used since the patient had just used the rescue inhaler 2 hours prior to the study in addition to her Advair. Maximum voluntary ventilation 86% predicted. LUNG VOLUMES: Total lung capacity 120% predicted with residual volume of 151% predicted, and an expiratory reserve volume of 16% predicted. DIFFUSION CAPACITY: DLCO 92% predicted. COMPARISONS: None. INTERPRETATION: There is an obstructive ventilatory defect consistent with a moderate obstructive process. Based on the fact that she did recently use the bronchodilators, there is likely a fixed obstruction, although we cannot completely rule out the possibility of reversible obstruction with history of asthma. The patient has significant small airway disease consistent again with history of asthma. Lung volumes do demonstrate a significant amount of air trapping and trend of hyperinflation. Diffusion capacity is within normal limits. Clinical correlation warranted. MD LATHA Marcial/MODWarren / [id number]
== END 2021-07-31 11:23 | disposition home or self-care (01) ==
LOC: HO.RESP 11:22
PROVIDERS: PCP Internal Medicine; Visit Provider Internal Medicine Pulmonary Disease
DX: J45.909 Unspecified asthma, uncomplicated (principal); Z91.09 Other allergy status, other than to drugs and biological substances
CPT/HCPCS: 36415; 82785; 85025; 86003; 94010; 94727; 94729; 99202

== ENCOUNTER 2021-08-10 18:47 | Emergency (ER) | payer OTHER, SELFPAY ==
--- NOTE | ~2021-08-10 | XR_ITS ---
EXAMINATION: XR CHEST CLINICAL INFORMATION: Shortness of breath. COMPARISON: Chest radiograph dated from 07/15/2021. TECHNIQUE: AP view of the chest was obtained. FINDINGS: EKG wires overlie the chest. Normal appearance of the cardiomediastinal silhouette. No focal airspace opacities, pleural effusions or pneumothorax. No acute osseous abnormalities. The visualized upper abdomen is within normal limits. XR/XR chest 1V IMPRESSION: No acute cardiopulmonary findings.
[2021-08-10 18:56] VITALS: BP 120/57; PULSE 111; RESP 28; TEMP 36.6; O2SAT 91; BMI 39.5
--- NOTE | 2021-08-10 19:09 | ED.ASTHMA ---
HPI - Asthma General Chief Complaint: Upper Respiratory Symptoms Stated Complaint: SOB Time Seen by Provider: 08/10/21 19:03 Source: patient Mode of arrival: ambulatory Limitations: no limitations History of Present Illness HPI Narrative: Patient comes to the emergency room complaining of an asthma exacerbation. Patient states she was doing well at work, suddenly she had shortness of breath, wheezing. Patient states that she did not use an inhaler prior to arrival . Related Data Home Medications Medication Instructions Recorded Confirmed clonazepam 1 mg tablet (Klonopin) 1 mg PO DAILY 05/22/20 07/20/21 Previous Rx's Medication Instructions Recorded albuterol sulfate 90 mcg/actuation 2 puff INHALATION Q4-6H PRN #8.5 g 03/14/20 aerosol inhaler clonidine HCl 0.2 mg tablet 0.2 mg PO BID-TID PRN #90 tab 09/29/20 albuterol sulfate 2.5 mg (3 mL) INHALATION Q4-6H PRN 10/28/20 #180 ml ibuprofen 600 mg tablet 600 mg PO Q8H PRN #20 tab 11/07/20 qmmtqphkit-ftlsfcfgqhmmm-ykmlmzaq 1 tab PO Q6-8H PRN 30 Days #90 tab 11/13/20 50 mg-325 mg-40 mg tablet doxepin 25 mg capsule 25 mg PO BEDTIME #30 cap 01/20/21 topiramate 25 mg tablet 25 mg PO BEDTIME #30 tab 03/19/21 albuterol sulfate 90 mcg/actuation 2 puff PO Q4-6H PRN #8.5 ea 04/09/21 aerosol inhaler (ProAir HFA) cholecalciferol (vitamin D3) 1,250 1,250 mcg PO QWEEK 56 Days #8 cap 06/08/21 mcg (50,000 unit) capsule cholecalciferol (vitamin D3) 50 50 mcg PO DAILY 30 Days #30 cap 06/08/21 mcg (2,000 unit) capsule levothyroxine 150 mcg tablet 150 mcg PO DAILY 30 Days #30 tab 06/08/21 albuterol sulfate 90 mcg/actuation 2 puff INHALATION Q4-6H PRN #8.5 g 07/03/21 aerosol inhaler (ProAir HFA) fluticasone propionate 115 2 puff INHALATION BID 30 Days #12 g 07/03/21 mcg-salmeterol 21 mcg/actuation HFA inhaler (Advair HFA) NEBULIZER #1 ea 07/04/21 prednisone 20 mg tablet 60 mg PO DAILY 7 Days #21 tab 07/15/21 calcium citrate 250 mg PO DAILY 30 Days #30 tab 07/17/21 gabapentin 400 mg capsule 400 mg PO BID 30 Days #60 cap 07/20/21 albuterol sulfate 90 mcg/actuation 2 puff INHALATION Q4-6H PRN #8.5 g 08/10/21 aerosol inhaler prednisone 50 mg tablet 50 mg PO DAILY #5 tab 08/10/21 Allergies Allergy/AdvReac Type Severity Reaction Status Date / Time iodine [IODINE] Allergy Mild RASH Verified 07/31/21 11:27 morphine [MORPHINE] Allergy Unknown WBC Verified 07/31/21 11:27 ELEVATED/ N/V shellfish derived Allergy Unknown HIVES Verified 07/31/21 11:27 [SHELLFISH DERIVED] duloxetine AdvReac Intermediate vomiting Verified 07/31/21 11:27 Review of Systems Review of Systems: Constitutional : No Weight loss, No Fever, No Chills, No Night Sweats, No Fatigue, No Malaise ENT/Mouth : No Hearing loss, No Ear Pain, No Nasal Congestion, No Sinus Pain, No Hoarseness, No sore throat, No Rhinorrhea, No Swallowing Difficulty Eyes: No Eye Pain, No Swelling, No Redness, No Foreign Body, No Discharge, No Vision Changes Cardiovascular : No Chest Pain, No SOB, No Dyspnea on Exertion, No Orthopnea, No Edema, No Palpitations Respiratory : Complaining of occasional cough, wheezing, shortness of breath Gastrointestinal : No Nausea, No Vomiting, No Diarrhea, No Constipation, No abdominal Pain, No Hematochezia, No Melena Genitourinary : no irregular bleeding, No Dysuria, No Urinary Frequency, No Hematuria, No Urinary Incontinence, No Urgency, No Flank Pain, No Urinary Flow Changes, No Hesitancy Musculoskeletal : No joint pain, No Myalgias, No Joint Swelling Skin : No Skin Lesions, No rash Neuro : No Weakness, No Numbness, No Paresthesias, No Loss of Consciousness, No Dizziness, No Headache Psych : No Anxiety/Panic, No Depression, No SI/HI/AH/VH, No Social Issues, Heme/Lymph: No Bruising, No Bleeding,No Lymphadenopathy Endocrine : No Polyuria, No Polydipsia, No Temperature Intolerance [facility] Past Medical History Medical History Anxiety Asthma Bilateral foot pain Bilateral lower extremity edema Cervical lymphadenopathy Elevated LFTs Fibromyalgia History of thyroid cancer Hypothyroidism Migraine Morbid obesity with BMI of 40.0-44.9, adult Papillary thyroid carcinoma Post-surgical hypothyroidism Smoker Thyroid cancer Vitamin D deficiency Surgical History Hx of section Hx of cholecystectomy Hx of total thyroidectomy (~05/2020) Family History Family History Father Diabetes Asthma Mother Unknown family medical history Social History Social History Household Members: Family Housing: Apartment Alcohol intake: former Patient Tobacco Use Status: Current everyday Tobacco user Cigarettes Per Day: 1 Years Smoked: 20 years Second Hand Smoke Exposure: Yes Advance Directives: No Advance Directives Information Provided: Yes Patient : No service: No Current occupational status: employed 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 Oriented X3. Ouwf-yg-wzscujbv distress Eyes: Pupils equal, round and reactive to light. ENT: Pharynx normal. Neck: Normal inspection. Neck supple. No lymph nodes noted. No crepitus CVS: Normal heart rate and rhythm. Pulses normal. Normal S1 and S2 Respiratory: Mild to moderate respiratory distress, oxygen saturation 95% on room air. Speaking in 2 word sentences Abdomen: Soft and nontender. No rigidity. No distention. Skin: Skin warm and dry. Normal skin color. Normal skin turgor. Extremities: No lower extremity edema. No Lacerations. No Rash Neuro: Oriented X 3. No motor deficit. No sensory deficit. Moving all extermities. No slurred speech. Course Course Course Narrative: After the 1st nebulization, patient was still wheezing. Patient received IV magnesium, Solu-Medrol 125 mg. Patient is currently getting a 2nd neb treatment, almost done. Patient feels much better, now speaking in full sentences, on room air oxygen is 98%. After the nebulization, patient is an ambulation trial. If patient's oxygen saturation remained stable, patient is no longer wheezing, she may be discharged. Sign-out given to Dr. King [facility] - Asthma Lab Data Result diagrams: 08/10/21 19:13 Labs: Lab Results 08/10/21 08/10/21 Range/Units 19:13 19:20 WBC 10.3 (4.8-10.8) X10*3/uL RBC 4.57 (4.20-5.50) X10*6/uL Hgb 14.1 (12.0-16.0) g/dl Hct 42.1 (37.0-47.0) % MCV 92.1 (80.0-98.0) fL MCH 30.9 (27.0-33.0) pg MCHC 33.5 (31.0-35.0) g/dl RDW 13.7 (11.0-16.0) % Plt Count 417 H (160-400) X10*3/uL MPV 9.3 L (9.4-12.3) fL Immature Gran % (Auto) 0.4 (0.0-0.4) % Neut % (Auto) 60.1 (45-73) % Lymph % (Auto) 25.2 (20-40) % Sunflower % (Auto) 5.4 (2-11) % Eos % (Auto) 8.4 H (0-4) % Baso % (Auto) 0.5 (0-2) % Lymph # (Auto) 2.6 (1.2-4.9) X10*3/uL Sunflower # (Auto) 0.6 (0.1-1.2) X10*3/uL Eos # (Auto) 0.9 H (0.0-0.4) X10*3/uL Baso # (Auto) 0.1 (0.0-0.2) X10*3/uL Abs Immat Gran (auto) 0.04 H (0.00-0.03) X10*3/uL Absolute Neuts (auto) 6.2 (2.0-8.3) x10*3/uL Absolute Nucleated RBC 0.000 (0.0-0.012) X10*3/uL Nucleated RBC % (auto) 0.0 (0.0-0.2) /100WBC COVID-19 ([facility]) Negative (Negative) COVID-19 Clin Com See Note Discharge Plan Discharge Clinical Impression: Asthma Patient Disposition: Home, Self-Care Instructions: Asthma (DC) Additional Instructions: Please follow-up with your primary care physician tomorrow. If you have any worsening or new symptoms, please return to the emergency room or call 911 Prescriptions: New albuterol sulfate 90 mcg/actuation HFA aerosol inhaler 2 puff inhalation Q4-6H PRN (Reason: shortness of breath or wheezing) Qty: 8.5 1RF prednisone 50 mg tablet 50 mg PO DAILY Qty: 5 0RF No Action albuterol sulfate 90 mcg/actuation HFA aerosol inhaler 2 puff inhalation Q4-6H PRN (Reason: shortness of breath or wheezing) Qty: 8.5 0RF clonidine HCl 0.2 mg tablet 0.2 mg PO BID-TID PRN (Reason: for anxiety) Qty: 90 0RF doxepin 25 mg capsule 25 mg PO BEDTIME Qty: 30 1RF topiramate 25 mg tablet 25 mg PO BEDTIME Qty: 30 3RF albuterol sulfate [ProAir HFA] 90 mcg/actuation HFA aerosol inhaler 2 puff PO Q4-6H PRN (Reason: for wheezing) Qty: 8.5 3RF levothyroxine 150 mcg tablet 150 mcg PO DAILY 30 Days Qty: 30 3RF cholecalciferol (vitamin D3) 50 mcg (2,000 unit) capsule 50 mcg PO DAILY 30 Days Qty: 30 11RF cholecalciferol (vitamin D3) 1,250 mcg (50,000 unit) capsule 1,250 mcg PO QWEEK 56 Days Qty: 8 0RF calcium citrate 250 mg calcium tablet 250 mg PO DAILY 30 Days Qty: 30 2RF ibuprofen 600 mg tablet 600 mg PO Q8H PRN (Reason: pain) Qty: 20 0RF albuterol sulfate 2.5 mg /3 mL (0.083 %) solution for nebulization 2.5 mg inhalation Q4-6H PRN (Reason: shortness of breath or wheezing) Qty: 180 0RF prednisone 20 mg tablet 60 mg PO DAILY 7 Days Qty: 21 0RF qsjuoffdyb-mzdcmxxcxgbit-oell 50-325-40 mg tablet 1 tab PO Q6-8H PRN (Reason: headaches) 30 Days Qty: 90 1RF Advair HFA 115-21 mcg/actuation HFA aerosol inhaler 2 puff inhalation BID 30 Days Qty: 12 3RF Rx Instructions: administer with spacer albuterol sulfate [ProAir HFA] 90 mcg/actuation HFA aerosol inhaler 2 puff inhalation Q4-6H PRN (Reason: shortness of breath or wheezing) Qty: 8.5 3RF (DME) NEBULIZER See Rx Instructions .Route .MEDSUPPLY Qty: 1 0RF Rx Instructions: Use as directed as needed gabapentin 400 mg capsule 400 mg PO BID 30 Days Qty: 60 3RF clonazepam [Klonopin] 1 mg tablet 1 mg PO DAILY 0RF
[2021-08-10] MEDS: methylPREDNISolone Sod Succ 125 MG/2 ML VIAL IVPUSH (19:10)
[2021-08-10] MEDS: Magnesium Sulfate/H2O 2 GM/50 ML PIGGYBACK IV (19:16)
[2021-08-10 19:17] VITALS: BP 115/81; PULSE 95; RESP 21; O2SAT 97
[2021-08-10 19:21] VITALS: O2SAT 97
[2021-08-10 19:24] VITALS: PULSE 90; RESP 21; O2SAT 98
[2021-08-10] MEDS: Albuterol Sulfate (0.083%) 2.5 MG/3 ML VIAL.NEB 10 MG INHALE ×2 (19:24→20:34)
[2021-08-10 19:37] LABS: COVID-19 Test Negative (Negative)
[2021-08-10 20:19] LABS: MANUAL DIFF FLAG NO
[2021-08-10 20:21] LABS: Basophils Absolute Auto 0.1 X10*3/uL (0.0-0.2); Basophils Percent Auto 0.5 % (0-2); Eosinophils Absolute Auto 0.9 X10*3/uL (0.0-0.4); Eosinophils Percent Auto 8.4 % (0-4); Hematocrit 42.1 % (37.0-47.0); Hemoglobin 14.1 g/dl (12.0-16.0); Imm Gran Abs Auto 0.04 X10*3/uL (0.00-0.03); Imm Gran Pct Auto 0.4 % (0.0-0.4); Lymphocytes Absolute Auto 2.6 X10*3/uL (1.2-4.9); Lymphocytes Percent Auto 25.2 % (20-40); Mean Corpuscular HGB Conc 33.5 g/dl (31.0-35.0); Mean Corpuscular Hemoglobin 30.9 pg (27.0-33.0); Mean Corpuscular Volume 92.1 fL (80.0-98.0); Mean Platelet Volume 9.3 fL (9.4-12.3); Monocytes Absolute Auto 0.6 X10*3/uL (0.1-1.2); Monocytes Percent Auto 5.4 % (2-11); Neutrophils Absolute Auto 6.2 x10*3/uL (2.0-8.3); Neutrophils Percent Auto 60.1 % (45-73); Platelet Count 417 X10*3/uL (160-400); Red Blood Count 4.57 X10*6/uL (4.20-5.50); Red Cell Distribution Width 13.7 % (11.0-16.0); White Blood Count 10.3 X10*3/uL (4.8-10.8)
[2021-08-10 20:35] VITALS: PULSE 98; RESP 16; O2SAT 97
[2021-08-10 22:06] VITALS: BP 105/65; PULSE 94; RESP 16; TEMP 36.5; O2SAT 96
== END 2021-08-10 22:12 | disposition home or self-care (01) ==
PROVIDERS: Emergency Provider Emergency Medicine; PCP Internal Medicine
DX: J45.909 Unspecified asthma, uncomplicated (principal); Z20.822 Contact with and (suspected) exposure to COVID-19; Z85.850 Personal history of malignant neoplasm of thyroid
CPT/HCPCS: 36415; 71045; 85025; 87635; 94640; 94644; 94645; 96365; 96366; 96375; 99284; J2930; J3475

== ENCOUNTER 2021-08-13 14:29 | Outpatient (REF) | payer OTHER, SELFPAY ==
[2021-08-13 16:02] LABS: Free T4 (Free Thyroxine) 0.82 ng/dL (0.71-1.85); Thyroid Stimulating Hormone 16.09 uIU/mL (0.32-4.0); Vitamin D 25-OH Total 19.7 ng/mL (>30)
[2021-08-14 09:46] LABS: Thyroglobulin <0.1 ng/mL; Thyroglobulin Antibodies <1 IU/mL (< or = 1)
== END 2021-08-13 14:30 | disposition home or self-care (01) ==
LOC: HO.LAB 14:29
PROVIDERS: PCP Internal Medicine; Visit Provider Internal Medicine
DX: E89.0 Postprocedural hypothyroidism (principal); E55.9 Vitamin D deficiency, unspecified
CPT/HCPCS: 36415; 82306; 84432; 84439; 84443; 86800

== ENCOUNTER → 2021-08-19 12:49 | Outpatient (BNVA) | payer OTHER, SELFPAY | PROVIDERS: PCP Internal Medicine; Visit Provider Internal Medicine | DX: C73 Malignant neoplasm of thyroid gland (principal); E55.9 Vitamin D deficiency, unspecified; E03.9 Hypothyroidism, unspecified; F20.9 Schizophrenia, unspecified; Z79.899 Other long term (current) drug therapy; F17.210 Nicotine dependence, cigarettes, uncomplicated | CPT/HCPCS: Q3014 ==

== ENCOUNTER → 2021-09-01 11:14 | Outpatient (BNVA) | payer OTHER, SELFPAY | PROVIDERS: PCP Internal Medicine; Visit Provider Internal Medicine Pulmonary Disease | DX: J45.909 Unspecified asthma, uncomplicated (principal); Z91.09 Other allergy status, other than to drugs and biological substances | CPT/HCPCS: 99212 ==

== ENCOUNTER 2021-09-14 10:50 | Outpatient (REF) | payer OTHER, SELFPAY | END 2021-09-14 10:51 | disposition home or self-care (01) | LOC: HO.MDS 10:50 | PROVIDERS: Visit Provider Internal Medicine Pulmonary Disease | DX: J45.50 Severe persistent asthma, uncomplicated (principal); M79.7 Fibromyalgia | CPT/HCPCS: 96372; J2357 ==

== ENCOUNTER 2021-09-14 12:34 | Outpatient (REF) | payer OTHER, SELFPAY ==
--- NOTE | ~2021-09-14 | US_ITS ---
EXAMINATION: US SOFT TISSUE HEAD/NECK CLINICAL INFORMATION: Malignant neoplasm of thyroid. COMPARISON: Ultrasound thyroid soft tissues neck 11/30/2019. TECHNIQUE: Ultrasound of the neck soft tissues is performed with high- frequency du-scale imaging and color Doppler. FINDINGS: THYROID BED: Prior thyroidectomy. No residual thyroid tissue demonstrated in the thyroid bed. No cystic or solid nodules demonstrated in the thyroid bed. RIGHT NECK SOFT TISSUES: There are 4 right cervical lymph nodes. 2 lymph nodes demonstrate abnormal ultrasound pathology. Level 3: 1.7 x 0.5 x 1.2 cm. Abnormal nain architecture with thick cortex and slitlike or absent hilum. Level 3: 0.9 x 0.5 x 0.7 cm. Abnormal nain architecture with slitlike or absent hilum. There are 2 right level 3 lymph nodes that measure 1.7 x 0.3 x 0.7 cm and 1 x 0.3 x 0.8 cm. Normal in size and demonstrate normal ultrasound morphology. LEFT NECK SOFT TISSUES: There are left cervical lymph nodes. 3 lymph nodes demonstrate abnormal ultrasound morphology. Level 1B: 1.6 x 1 x 1.6 cm. Abnormal nain architecture with thick nodular cortex and irregular margins. Level 1B: 0.9 x 0.6 x 0.8 cm. Abnormal nain architecture with thickened cortex. Level 2:2.2 x 1.2 x 2.2 cm. Abnormal nain architecture with thick cortex and slitlike or absent hilum. There is a level 2 lymph node that measures 1.3 x 0.5 x 1 cm and demonstrate normal ultrasound morphology. There is a level 3 lymph node that measured 1.1 x 0.4 x 0.7 cm and demonstrates normal ultrasound morphology. US/US soft tiss head and/or neck IMPRESSION: No residual thyroid tissue or nodule is seen. Bilateral cervical lymph nodes as described above.
== END 2021-09-14 12:35 | disposition home or self-care (01) ==
LOC: HO.US 12:34
PROVIDERS: Visit Provider Internal Medicine
DX: C73 Malignant neoplasm of thyroid gland (principal)
CPT/HCPCS: 76536

== ENCOUNTER 2021-09-28 10:36 | Outpatient (REF) | payer OTHER, SELFPAY | END 2021-09-28 10:37 | disposition home or self-care (01) | LOC: HO.MDS 10:36 | PROVIDERS: Visit Provider Internal Medicine Pulmonary Disease | DX: J45.50 Severe persistent asthma, uncomplicated (principal) | CPT/HCPCS: 96372; J2357 ==

== ENCOUNTER 2021-10-12 12:19 | Outpatient (REF) | payer OTHER, SELFPAY | END 2021-10-12 12:20 | disposition home or self-care (01) | LOC: HO.MDS 12:19 | PROVIDERS: Visit Provider Internal Medicine Pulmonary Disease | DX: J45.50 Severe persistent asthma, uncomplicated (principal) | CPT/HCPCS: 96372; J2357 ==

== ENCOUNTER 2021-10-19 15:37 | Outpatient (REF) | payer OTHER, SELFPAY ==
[2021-10-19 17:01] LABS: Thyroid Stimulating Hormone 0.03 uIU/mL (0.32-4.0); Vitamin D 25-OH Total 14.5 ng/mL (>30)
[2021-10-20 09:42] LABS: Thyroglobulin <0.1 ng/mL; Thyroglobulin Antibodies <1 IU/mL (< or = 1)
== END 2021-10-19 15:38 | disposition home or self-care (01) ==
LOC: HO.LAB 15:37
PROVIDERS: PCP Internal Medicine; Visit Provider Internal Medicine
DX: C73 Malignant neoplasm of thyroid gland (principal); E55.9 Vitamin D deficiency, unspecified
CPT/HCPCS: 36415; 82306; 84432; 84439; 84443; 86800

== ENCOUNTER 2021-10-20 10:05 | Outpatient (REF) | payer OTHER, SELFPAY ==
[2021-10-21 09:32] LABS: BV Int Neg Control Negative (Negative); BV Int Pos Control Positive (Positive)
[2021-10-21 10:31] LABS: CT PCR NOT DETECTED (Not Detect.); NG PCR NOT DETECTED (Not Detect.)
[2021-10-26 09:02] LABS: HPV mRNA E6/E7 rflx Detected (Not Detected)
[2021-10-26 09:05] LABS: HPV 16 RNA NOT DETECTED (NOT DETECTED)
== END 2021-10-20 10:06 | disposition home or self-care (01) ==
LOC: HO.LAB 10:05
PROVIDERS: Visit Provider Advanced Practice Midwife
DX: Z01.419 Encounter for gynecological examination (general) (routine) without abnormal findings (principal); Z11.51 Encounter for screening for human papillomavirus (HPV); Z20.2 Contact with and (suspected) exposure to infections with a predominantly sexual mode of transmission; Z87.42 Personal history of other diseases of the female genital tract
CPT/HCPCS: 87480; 87491; 87510; 87591; 87624; 87625; 87660; 88142

== ENCOUNTER → 2021-10-21 07:57 | Outpatient (BNVA) | payer OTHER, SELFPAY | PROVIDERS: PCP Internal Medicine; Visit Provider Internal Medicine | DX: Z13.89 Encounter for screening for other disorder (principal) ==

== ENCOUNTER 2021-10-26 14:38 | Outpatient (REF) | payer OTHER, SELFPAY ==
[2021-10-26 16:48] LABS: Syphilis Screen Nonreactive (Nonreactive)
[2021-10-27 05:00] LABS: HBsAGNum1 0.45 S/CO (0.00-0.99); HIV AB/AG Nonreactive (Nonreactive); HIV Num 1 0.06 S/CO (0.00-0.99); Hepatitis B Surface Antigen Negative (Negative); ~HepC Num1 8.85 S/CO (0.00-0.79); ~Hepatitis C Antibody Reactive (Nonreactive)
== END 2021-10-26 14:39 | disposition home or self-care (01) ==
LOC: HO.MDS 14:38
PROVIDERS: Absent Provider Advanced Practice Midwife; PCP Internal Medicine; Visit Provider Internal Medicine Pulmonary Disease
DX: J45.50 Severe persistent asthma, uncomplicated (principal); E66.01 Morbid (severe) obesity due to excess calories; N63.20 Unspecified lump in the left breast, unspecified quadrant; N64.4 Mastodynia; Z11.3 Encounter for screening for infections with a predominantly sexual mode of transmission; Z11.59 Encounter for screening for other viral diseases; Z11.4 Encounter for screening for human immunodeficiency virus [HIV]; R89.6 Abnormal cytological findings in specimens from other organs, systems and tissues; Z68.42 Body mass index [BMI] 45.0-49.9, adult; Z87.42 Personal history of other diseases of the female genital tract
CPT/HCPCS: 36415; 86780; 86803; 87340; 87389; 96372; J2357

== ENCOUNTER 2021-10-28 10:02 | Outpatient (REF) | payer OTHER, SELFPAY ==
--- NOTE | ~2021-10-28 | US_ITS ---
EXAMINATION: US ULTRASOUND-GUIDED LEFT NECK LYMPH NODE BIOPSY CLINICAL INFORMATION: Thyroid cancer with total thyroidectomy in 2020. Presence with abnormal lymph nodes in the left neck level 1B and level 2. COMPARISON: None. TECHNIQUE: Following explaining ultrasound-guided left neck lymph node biopsy procedure, benefits and risks, written consent was obtained. Patient was placed supine on ultrasound stretcher with head extended and slightly rotated to the right. Preliminary ultrasound imaging was obtained abnormal-appearing left level 1A and level 2 lymph nodes and marked on the skin. The left neck was then cleaned and draped in the usual sterile manner with 2% chlorhexidine solution. Sterile drape was placed over the cleaned area. 1% lidocaine was injected at the 2 marked sites along the left neck. A 25-gauge needle attached to a syringe was then advanced initially under sterile ultrasound guidance into the left level 1A/B lymph node and a 5-pass aspiration biopsy was performed. Subsequently, needle was attached to a 10 mL syringe which was advanced under ultrasound guidance into the left level 2 lymph node twice. Postprocedure, complete hemostasis was achieved. Sterile Band-Aid was applied at the puncture site. Patient tolerated procedure extremely well. FINDINGS: A 5-pass fine-needle aspiration/biopsy was performed of left neck level 1A/B lymph node. A 2-pass fine-needle aspiration/biopsy was performed of left neck level 2 lymph node. Preliminary results from both lymph nodes revealed lymphocytes confirming needle position in the lymph node. In addition to biopsy, a thyroid lobe and washout study was requested for both lymph nodes. Definitive pathology results are pending. US/US guided fine needle asp IMPRESSION: Successful ultrasound and fluoroscopy-guided left neck lymph nodes biopsy performed.
--- NOTE | ~2021-10-28 | US_ITS ---
EXAMINATION: US ULTRASOUND-GUIDED LEFT NECK LYMPH NODE BIOPSY CLINICAL INFORMATION: Thyroid cancer with total thyroidectomy in 2020. Presence with abnormal lymph nodes in the left neck level 1B and level 2. COMPARISON: None. TECHNIQUE: Following explaining ultrasound-guided left neck lymph node biopsy procedure, benefits and risks, written consent was obtained. Patient was placed supine on ultrasound stretcher with head extended and slightly rotated to the right. Preliminary ultrasound imaging was obtained abnormal-appearing left level 1A and level 2 lymph nodes and marked on the skin. The left neck was then cleaned and draped in the usual sterile manner with 2% chlorhexidine solution. Sterile drape was placed over the cleaned area. 1% lidocaine was injected at the 2 marked sites along the left neck. A 25-gauge needle attached to a syringe was then advanced initially under sterile ultrasound guidance into the left level 1A/B lymph node and a 5-pass aspiration biopsy was performed. Subsequently, needle was attached to a 10 mL syringe which was advanced under ultrasound guidance into the left level 2 lymph node twice. Postprocedure, complete hemostasis was achieved. Sterile Band-Aid was applied at the puncture site. Patient tolerated procedure extremely well. FINDINGS: A 5-pass fine-needle aspiration/biopsy was performed of left neck level 1A/B lymph node. A 2-pass fine-needle aspiration/biopsy was performed of left neck level 2 lymph node. Preliminary results from both lymph nodes revealed lymphocytes confirming needle position in the lymph node. In addition to biopsy, a thyroid lobe and washout study was requested for both lymph nodes. Definitive pathology results are pending. US/US guided fine needle asp add IMPRESSION: Successful ultrasound and fluoroscopy-guided left neck lymph nodes biopsy performed.
[2021-10-28] MEDS: Lidocaine HCl 1 % MPF 5 ML VIAL SUBCUT (11:52)
[2021-11-04 11:51] LABS: Thyroglobulin, Fine Needle Asp <0.1 ng/mL
== END 2021-10-28 10:03 | disposition home or self-care (01) ==
LOC: HO.US 10:02
PROVIDERS: Radiology Diagnostic Radiology; Visit Provider Internal Medicine
DX: R59.0 Localized enlarged lymph nodes (principal)
CPT/HCPCS: 10005; 10006; 36415; 84432; 88172; 88173; 88177

== ENCOUNTER 2021-11-09 11:22 | Outpatient (REF) | payer OTHER, SELFPAY | END 2021-11-09 11:23 | disposition home or self-care (01) | LOC: HO.MDS 11:22 | PROVIDERS: Visit Provider Internal Medicine Pulmonary Disease | DX: J45.50 Severe persistent asthma, uncomplicated (principal) | CPT/HCPCS: 96372; J2357 ==

== ENCOUNTER 2021-11-17 14:04 | Outpatient (REF) | payer OTHER, SELFPAY | END 2021-11-17 14:05 | disposition home or self-care (01) | LOC: HO.MAMMO 14:04 | PROVIDERS: PCP Internal Medicine; Visit Provider Advanced Practice Midwife | DX: Z13.89 Encounter for screening for other disorder (principal) ==

== ENCOUNTER 2021-11-23 10:45 | Outpatient (REF) | payer OTHER, SELFPAY ==
--- NOTE | ~2021-11-23 | MM_ITS ---
EXAMINATION: MM DIAGNOSTIC DIGITAL BREAST TOMOSYNTHESIS, BILATERAL US DIAGNOSTIC ULTRASOUND BREAST, LEFT CLINICAL INFORMATION: 36-year-old with sharp pain lower inner left breast over 4 months. Pea-sized palpable area noted by patient lower inner left breast, no clinical exam correlate. No prior breast imaging. Personal history thyroid cancer status post total thyroidectomy in 2019. No known family history breast cancer. TC score 7%. COMPARISON: None (current study represents initial baseline exam). TECHNIQUE: Digital breast tomosynthesis is performed in both the craniocaudal and mediolateral oblique views along with computer-aided detection (CAD). Synthesized 2D images are generated from the tomosynthesis. Additional bilateral MLO views are obtained. Ultrasound left breast is targeted to the areas of clinical concern. Patient is able to point to the area of symptoms and palpable concern at time of imaging. Grayscale imaging and color Doppler are performed without and with harmonics. FINDINGS: The breasts are almost entirely fatty (ACR BI-RADS breast composition Category a). Background stromal markings appearing normal. There is no mass or architectural abnormality. No focal duct ectasia. No abnormal calcifications. No skin thickening or coarsening of the John's ligaments. The axilla and skin contours are unremarkable. Ultrasound left breast demonstrates no cystic or solid mass, architectural abnormality, or focal duct ectasia. No skin thickening or edema tracking in soft tissue planes. Results are discussed with the patient at time of visit. MM/MM tomosynthesis diagnostic BI IMPRESSION: -No mammographic evidence of malignancy or inflammatory changes. -Unremarkable left breast ultrasound. ASSESSMENT: BI-RADS 1: Negative RECOMMENDATION: 1. Patient should be managed based on the clinical impression. 2. Otherwise, routine annual screening mammography, beginning age 40, or earlier as clinical risk factors warrant. This patient's information was entered into a reminder system with a target due date for their next mammogram.
== END 2021-11-23 10:46 | disposition home or self-care (01) ==
LOC: HO.MDS 10:45
PROVIDERS: Visit Provider Internal Medicine Pulmonary Disease
DX: J45.50 Severe persistent asthma, uncomplicated (principal); N64.4 Mastodynia; N63.24 Unspecified lump in the left breast, lower inner quadrant; E89.0 Postprocedural hypothyroidism; Z85.850 Personal history of malignant neoplasm of thyroid
CPT/HCPCS: 76642; 77062; 77066; J2357

== ENCOUNTER → 2021-11-30 09:09 | Outpatient (BNVA) | payer OTHER, SELFPAY | PROVIDERS: PCP Internal Medicine; Visit Provider Internal Medicine Pulmonary Disease | DX: J45.40 Moderate persistent asthma, uncomplicated (principal); Z91.09 Other allergy status, other than to drugs and biological substances; E66.01 Morbid (severe) obesity due to excess calories; Z68.42 Body mass index [BMI] 45.0-49.9, adult | CPT/HCPCS: 99212 ==

== ENCOUNTER 2021-12-08 11:40 | Outpatient (REF) | payer OTHER, SELFPAY | END 2021-12-08 11:41 | disposition home or self-care (01) | LOC: HO.MDS 11:40 | PROVIDERS: Visit Provider Internal Medicine Pulmonary Disease | DX: J45.50 Severe persistent asthma, uncomplicated (principal) | CPT/HCPCS: 96372; J2357 ==

== ENCOUNTER 2021-12-22 12:07 | Outpatient (REF) | payer OTHER, SELFPAY ==
[2021-12-22 13:57] LABS: Free T4 (Free Thyroxine) 1.56 ng/dL (0.71-1.85); Thyroid Stimulating Hormone 0.04 uIU/mL (0.32-4.0)
== END 2021-12-22 12:08 | disposition home or self-care (01) ==
LOC: HO.MDS 12:07
PROVIDERS: Absent Provider Internal Medicine; PCP Internal Medicine; Visit Provider Internal Medicine Pulmonary Disease
DX: J45.50 Severe persistent asthma, uncomplicated (principal); Z85.850 Personal history of malignant neoplasm of thyroid
CPT/HCPCS: 36415; 84439; 84443; 96372; J2357

== ENCOUNTER 2021-12-24 10:15 | Outpatient (REF) | payer OTHER, SELFPAY ==
[2021-12-24 17:08] LABS: CT PCR NOT DETECTED (Not Detect.); NG PCR NOT DETECTED (Not Detect.)
[2021-12-25 09:06] LABS: BV Int Neg Control Negative (Negative); BV Int Pos Control Positive (Positive)
== END 2021-12-24 10:16 | disposition home or self-care (01) ==
LOC: HO.LAB 10:15
PROVIDERS: PCP Internal Medicine; Visit Provider Obstetrics & Gynecology
DX: Z11.3 Encounter for screening for infections with a predominantly sexual mode of transmission (principal); R87.612 Low grade squamous intraepithelial lesion on cytologic smear of cervix (LGSIL); A59.9 Trichomoniasis, unspecified; R76.8 Other specified abnormal immunological findings in serum; Z20.2 Contact with and (suspected) exposure to infections with a predominantly sexual mode of transmission
CPT/HCPCS: 87480; 87491; 87510; 87591; 87660; 99212

== ENCOUNTER 2022-01-05 11:12 | Outpatient (REF) | payer OTHER, SELFPAY | END 2022-01-05 11:13 | disposition home or self-care (01) | LOC: HO.MDS 11:12 | PROVIDERS: PCP Internal Medicine; Visit Provider Internal Medicine Pulmonary Disease | DX: J45.50 Severe persistent asthma, uncomplicated (principal) | CPT/HCPCS: 96372; J2357 ==

== ENCOUNTER 2022-01-11 09:48 | Outpatient (REF) | payer OTHER, SELFPAY | END 2022-01-11 09:49 | disposition home or self-care (01) | LOC: HO.LAB 09:48 | PROVIDERS: PCP Internal Medicine; Visit Provider Obstetrics & Gynecology | DX: R87.612 Low grade squamous intraepithelial lesion on cytologic smear of cervix (LGSIL) (principal) | CPT/HCPCS: 57454; 88305; 88342; 88360 ==

== ENCOUNTER → 2022-01-18 11:58 | Outpatient (BNVA) | payer OTHER, SELFPAY | PROVIDERS: PCP Internal Medicine; Visit Provider Obstetrics & Gynecology | DX: D06.9 Carcinoma in situ of cervix, unspecified (principal) | CPT/HCPCS: 99212 ==

== ENCOUNTER 2022-01-19 12:26 | Outpatient (REF) | payer OTHER, SELFPAY | END 2022-01-19 12:27 | disposition home or self-care (01) | LOC: HO.MDS 12:26 | PROVIDERS: Visit Provider Internal Medicine Pulmonary Disease | DX: J45.50 Severe persistent asthma, uncomplicated (principal) | CPT/HCPCS: 96372; J2357 ==

== ENCOUNTER 2022-02-02 10:20 | Outpatient (REF) | payer OTHER, SELFPAY ==
[2022-02-02 10:44] LABS: MANUAL DIFF FLAG NO
[2022-02-02 11:18] LABS: Basophils Absolute Auto 0.1 X10*3/uL (0.0-0.2); Basophils Percent Auto 0.5 % (0-2); Eosinophils Absolute Auto 0.6 X10*3/uL (0.0-0.4); Eosinophils Percent Auto 5.3 % (0-4); Hematocrit 40.3 % (37.0-47.0); Hemoglobin 13.2 g/dl (12.0-16.0); Imm Gran Abs Auto 0.04 X10*3/uL (0.00-0.03); Imm Gran Pct Auto 0.4 % (0.0-0.4); Lymphocytes Absolute Auto 2.5 X10*3/uL (1.2-4.9); Lymphocytes Percent Auto 23.9 % (20-40); Mean Corpuscular HGB Conc 32.8 g/dl (31.0-35.0); Mean Corpuscular Hemoglobin 29.7 pg (27.0-33.0); Mean Corpuscular Volume 90.6 fL (80.0-98.0); Mean Platelet Volume 9.4 fL (9.4-12.3); Monocytes Absolute Auto 0.9 X10*3/uL (0.1-1.2); Monocytes Percent Auto 8.2 % (2-11); Neutrophils Absolute Auto 6.6 x10*3/uL (2.0-8.3); Neutrophils Percent Auto 61.7 % (45-73); Platelet Count 384 X10*3/uL (160-400); Red Blood Count 4.45 X10*6/uL (4.20-5.50); Red Cell Distribution Width 13.3 % (11.0-16.0); White Blood Count 10.6 X10*3/uL (4.8-10.8)
[2022-02-02 11:22] LABS: Appearance Urine Clear; Color Urine Yellow; Glucose Urine UA Negative (Negative); Leukocyte Esterase Urine Small (1+) (Negative); Nitrite Urine Negative (Negative); Specific Gravity - Urine 1.025 (1.005-1.025); Urine Blood Negative (Negative); Urine Ketones Negative (Negative); Urine Protein Negative (Neg-Trace)
[2022-02-02 11:43] LABS: Bacteria Urine Trace (None Seen); Hyaline Casts Urine 0-2 /LPF (0-2); RBC Urine 0-2 /HPF (0-2); UACC Culture Trigger YES; WBC Urine 0-5 /HPF (0-5)
[2022-02-02 11:55] LABS: Erythrocyte Sedimentation Rate 25 MM/HR (0-20)
[2022-02-02 12:54] LABS: Alanine Aminotransferase 53 U/L (0-31); Albumin Level 3.8 g/dL (3.5-5.0); Alkaline Phosphatase 63 U/L (39-117); Anion Gap 14 (12-20); Aspartate Amino Transferase 29 U/L (5-31); Bilirubin Total 0.5 mg/dL (0.0-1.0); Blood Urea Nitrogen 15 mg/dL (9-16); C Reactive Protein 1.59 mg/dL (< or = 0.50); Calcium 9.1 mg/dL (8.4-10.2); Carbon Dioxide 25 mmol/L (22-29); Chloride 104 mmol/L (96-108); Cholesterol 138 mg/dL; Estimated Glomerular Filt Rate > 60; Free T4 (Free Thyroxine) 1.37 ng/dL (0.71-1.85); Glucose Fasting 94 mg/dL (60-99); HDL Cholesterol 40 mg/dL; LDL Cholesterol Calculated 72 mg/dl; Potassium 4.1 mmol/L (3.3-5.1); Sodium 139 mmol/L (135-145); Thyroid Stimulating Hormone 0.04 uIU/mL (0.32-4.0); Total Protein 7.4 g/dL (6.5-8.0); Triglycerides 130 mg/dL
[2022-02-03 12:22] LABS: HCV Log PCR 6.57 Log IU/mL (NOT DETECTED)
[2022-02-07 11:32] LABS: Anti Nuclear Antibody Screen NEGATIVE (NEGATIVE)
== END 2022-02-02 10:21 | disposition home or self-care (01) ==
LOC: HO.LAB 10:20
PROVIDERS: PCP Internal Medicine; Visit Provider Internal Medicine
DX: Z00.00 Encounter for general adult medical examination without abnormal findings (principal); E03.9 Hypothyroidism, unspecified; M25.50 Pain in unspecified joint; M79.7 Fibromyalgia; E55.9 Vitamin D deficiency, unspecified; R76.8 Other specified abnormal immunological findings in serum
CPT/HCPCS: 36415; 80053; 80061; 81001; 82306; 84439; 84443; 85025; 85652; 86038; 86039; 86140; 87086; 87522

== ENCOUNTER 2022-02-02 10:46 | Outpatient (REF) | payer OTHER, SELFPAY | END 2022-02-02 10:47 | disposition home or self-care (01) | LOC: HO.MDS 10:46 | PROVIDERS: Visit Provider Internal Medicine Pulmonary Disease | DX: J45.50 Severe persistent asthma, uncomplicated (principal) | CPT/HCPCS: 96372; J2357 ==

== ENCOUNTER → 2022-02-03 11:16 | Outpatient (BNVA) | payer OTHER, SELFPAY | PROVIDERS: PCP Internal Medicine; Visit Provider Internal Medicine Pulmonary Disease | DX: J45.40 Moderate persistent asthma, uncomplicated (principal); Z91.09 Other allergy status, other than to drugs and biological substances; G47.33 Obstructive sleep apnea (adult) (pediatric) | CPT/HCPCS: 99212 ==

== ENCOUNTER 2022-02-05 09:41 | Day surgery (SDC) | payer OTHER, SELFPAY ==
[2022-02-01 14:49] VITALS: BMI 47.2
--- NOTE | 2022-02-03 15:16 | P.CONAN_ITS ---
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 (Acute) Hepatitis C antibody test positive (Acute) Trichomonas infection (Acute) LGSIL on Pap smear of cervix (Acute) Eczema (Acute) Hx of abnormal cervical Pap smear (Acute) Potential exposure to STD (Acute) Left breast mass (Acute) Breast pain, left (Acute) Depression (Acute) Morbid obesity with BMI of 45.0-49.9, adult (Acute) Environmental allergies (Acute) Asthma exacerbation (Acute) Migraine (Acute) Bilateral foot pain (Acute) Fibromyalgia (Acute) COVID-19 virus infection (Acute) History of thyroid cancer (Acute) Smoker (Acute) Morbid obesity with BMI of 40.0-44.9, adult (Acute) Papillary thyroid carcinoma (Acute) Post-surgical hypothyroidism (Acute) Bilateral lower extremity edema (Acute) Elevated LFTs (Acute) Anxiety (Acute) Asthma (Acute) Paresthesia (Acute) Edema (Acute) Fatigue (Acute) Body aches (Acute) Hypothyroidism (Acute) Cervical lymphadenopathy (Acute) Vitamin D deficiency (Acute) Thyroid cancer (Acute) Past Medical History Medical History Anxiety Asthma Bilateral foot pain Bilateral lower extremity edema Cervical lymphadenopathy Depression Elevated LFTs Fibromyalgia History of thyroid cancer Hypothyroidism Migraine Morbid obesity with BMI of 45.0-49.9, adult Papillary thyroid carcinoma Post-surgical hypothyroidism Smoker Thyroid cancer Vitamin D deficiency Family History Family History Father Diabetes Asthma Hypertension Mother Diabetes Hypertension Daughter No problems noted. Daughter No problems noted. Daughter No problems noted. Daughter Deaf Asthma Daughter Deaf Son No problems noted. Son Asthma Son No problems noted. 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 Cognitive needs: No Hearing needs: No Vision needs: No Meds Allergies Allergy/AdvReac Type Severity Reaction Status Date / Time morphine [MORPHINE] Allergy Intermediate WBC Verified 02/02/22 09:43 ELEVATED/ N/V shellfish derived Allergy Intermediate HIVES Verified 02/02/22 09:43 [SHELLFISH DERIVED] iodine [IODINE] Allergy Mild RASH Verified 02/02/22 09:43 duloxetine AdvReac Intermediate vomiting Verified 02/02/22 09:43 Home Medications Medication Instructions Recorded Confirmed Last Taken Type clonazepam 1 mg tablet (Klonopin) 1 mg PO DAILY 05/22/20 02/02/22 Unknown History Exam Exam Date and Time: February 03, 2022 1516 Height,Weight and Vital Signs: Height 5 ft 3 in Weight 121.109 kg Pertinent Lab Results Pertinent Lab Results: Laboratory Tests 02/02/22 02/02/22 10:42 10:42 WBC 10.6 Hgb 13.2 Hct 40.3 Plt Count 384 Sodium 139 Potassium 4.1 Chloride 104 Carbon Dioxide 25 BUN 15 Creatinine 0.97 Narrative Narrative: EKG 07/2021 Vent. Rate : 083 BPM ? ? Atrial Rate : 083 BPM ?? P-R Int : 102 ms? QRS Dur : 086 ms ? ? QT Int : 382 ms ? ? ? P-R-T Axes : 015 044 033 degrees ?? QTc Int : 448 ms ? Sinus rhythm with short [place] Otherwise normal ECG When compared with ECG of 10-DEC-2018 18:18, No significant change was found ? Assessment and Plan Assessment Anesthesia Assessment: Chart Reviewed
[2022-02-05 11:02] VITALS: BMI 49.4
[2022-02-05 11:05] LABS: UPreg QC Valid YES; Urine Pregnancy NEGATIVE (NEGATIVE)
[2022-02-05 11:12] VITALS: BP 101/63; PULSE 87; RESP 16; TEMP 36.4; O2SAT 96
--- NOTE | 2022-02-05 11:22 | HO.ANESPROP2 ---
COUNT INCLUDES THE [facility] Active Problems Active Problems: All Active Problems (Updated 02/03/22 @ 12:02 by Asher Cm MD) MISAEL (obstructive sleep apnea) (Acute) Annual physical exam (Acute) GERD (gastroesophageal reflux disease) (Acute) ELIZABETH III (cervical intraepithelial neoplasia grade III) with severe dysplasia (Acute) Hepatitis C antibody test positive (Acute) Trichomonas infection (Acute) LGSIL on Pap smear of cervix (Acute) Eczema (Acute) Hx of abnormal cervical Pap smear (Acute) Potential exposure to STD (Acute) Left breast mass (Acute) Breast pain, left (Acute) Depression (Acute) Morbid obesity with BMI of 45.0-49.9, adult (Acute) Environmental allergies (Acute) Asthma exacerbation (Acute) Migraine (Acute) Bilateral foot pain (Acute) Fibromyalgia (Acute) COVID-19 virus infection (Acute) History of thyroid cancer (Acute) Smoker (Acute) Morbid obesity with BMI of 40.0-44.9, adult (Acute) Papillary thyroid carcinoma (Acute) Post-surgical hypothyroidism (Acute) Bilateral lower extremity edema (Acute) Elevated LFTs (Acute) Anxiety (Acute) Asthma (Acute) Paresthesia (Acute) Edema (Acute) Fatigue (Acute) Body aches (Acute) Hypothyroidism (Acute) Cervical lymphadenopathy (Acute) Vitamin D deficiency (Acute) Thyroid cancer (Acute) Past Medical History Medical History Anxiety Asthma Bilateral foot pain Bilateral lower extremity edema Cervical lymphadenopathy Depression Elevated LFTs Fibromyalgia History of thyroid cancer Hypothyroidism Migraine Morbid obesity with BMI of 45.0-49.9, adult Papillary thyroid carcinoma Post-surgical hypothyroidism Smoker Thyroid cancer Vitamin D deficiency Family History Family History Father Diabetes Asthma Hypertension Mother Diabetes Hypertension Daughter No problems noted. Daughter No problems noted. Daughter No problems noted. Daughter Deaf Asthma Daughter Deaf Son No problems noted. Son Asthma Son No problems noted. Family history of problems with anesthesia: No Surgical History Surgical History Hx of section Hx of cholecystectomy Hx of lymph node biopsy Hx of total thyroidectomy (~05/2020) History of Problems with Anesthesia: No Social History Social History Household Members: Family Housing: Apartment Alcohol intake: former Patient Tobacco Use Status: Former Tobacco user Quit Date: 01/05/22 Tobacco use type: Cigarette Years Smoked: 20 years Smoked in Last 30 Days: No Second Hand Smoke Exposure: Yes Use of substances other than those prescribed or required for medical reasons: No Are you DNR?: No Advance Directives: No Advance Directives Information Provided: Yes service: No Current occupational status: employed 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 Cognitive needs: No Hearing needs: No Vision needs: No Meds Allergies Allergy/AdvReac Type Severity Reaction Status Date / Time morphine [MORPHINE] Allergy Intermediate WBC Verified 02/02/22 09:43 ELEVATED/ N/V shellfish derived Allergy Intermediate HIVES Verified 02/02/22 09:43 [SHELLFISH DERIVED] iodine [IODINE] Allergy Mild RASH Verified 02/02/22 09:43 duloxetine AdvReac Intermediate vomiting Verified 02/02/22 09:43 Active Medications: Current Medications Albuterol Sulfate (Albuterol Sulfate (0.083%) 2.5 Mg/3 Ml Vial.Neb) 2.5 mg INHALE ONCE PRN PRN Reason: Shortness of Breath/Wheezing Lactated Ringer's (Lr) 1,000 mls @ 100 mls/hr IVCONT .Q10H [facility] Home Medications Medication Instructions Recorded Confirmed Last Taken Type clonazepam 1 mg tablet (Klonopin) 1 mg PO DAILY 05/22/20 02/02/22 Unknown History Exam Exam Date and Time: February 05, 2022 1122 Height,Weight and Vital Signs: Height 5 ft 2 in Weight 122.47 kg Last Vital Signs Temp 97.6 F 02/05/22 11:12 Pulse 87 02/05/22 11:12 Resp 16 02/05/22 11:12 BP 101/63 02/05/22 11:12 Pulse Ox 96 02/05/22 11:12 O2 Del Method 02/05/22 11:12 Pertinent Lab Results Pertinent Lab Results: Laboratory Tests 02/05/22 10:19 Urine Test NEGATIVE Airway Mallampati Class: II TM Dist: >3cm Neck ROM: Full Assessment and Plan Assessment Anesthesia Assessment: Anesthesia Plan Discussed and Chart Reviewed Final Anesthetic Review Family History of Problems with Anesthesia: No History of Problems with Anesthesia: No NPO: Yes ASA Class: III Final Preanesthetic Review: No Changes in Pt Med Stat, Meds/Allgs Chart Reviewed, Consent Obtained/Reviewed and Anes Risks/Benef Reviewed Patient Risk: Intermediate Procedure Risk: Low Anesthetic Plan Anesthetic Plan: GA Disposition: Standard PACU
[2022-02-05] MEDS: Lactated Ringers 1,000 ML 100 ML IVCONT (11:23)
--- NOTE | 2022-02-05 12:15 | MHC.SHP ---
Pre-Procedural Eval Section A Date of Service: 02/05/22 The patient is an INPATIENT: No Changes since office visit: No Cold of Flu in the past 2 weeks, No New Medical Problems, No Changes in Medication and No Patient answered all questions The History & Physical has been completed within 30 days and I have reviewed it.: Yes Section B Chief Complaint: ca in situ Allergies: Allergies Allergy/AdvReac Type Severity Reaction Status Date / Time morphine [MORPHINE] Allergy Intermediate WBC Verified 02/02/22 09:43 ELEVATED/ N/V shellfish derived Allergy Intermediate HIVES Verified 02/02/22 09:43 [SHELLFISH DERIVED] iodine [IODINE] Allergy Mild RASH Verified 02/02/22 09:43 duloxetine AdvReac Intermediate vomiting Verified 02/02/22 09:43 Plan Diagnosis/Plan: Unchanged I have reviewed the history and physical and performed a pertinent physical examination on my patient. No changes have occurred unless specified.
--- NOTE | 2022-02-05 13:00 | P.BOP_ITS ---
Brief Operative Note Date of Service: 02/05/22 Pre-op diagnosis: ELIZABETH 3 Post-op diagnosis: same Procedure: LEEP CONE with post CONE ECC Surgeon: Curtis Torrez MD Anesthesia: GLMA, local and other (Paracervical block) Was an Solar Sales Representative used for this Procedure?: No Estimated blood loss (mL): 0 Pathology: other (Cervical cone, Endocx, wider and deeper anterior cervical lip, wider and deeper posterior cervical lip Post cone ECC) Condition: stable Disposition: other (Home)
--- NOTE | 2022-02-05 13:01 | P.OP_ITS ---
Operative Note Operative Note Date of Service: 02/05/22 Narrative: Pre op diagnosis: ELIZABETH 3 Operation: Colposcopy, Loop electrical excision procedure cone, top hat endocervical excision, wider and deeper anterior and posterior cervical lip excision, post cone ECC, Postop diagnosis: the same Quantitative blood loss: 50 cc Surgeon: Curtis Torrez MD, FACOG [employer] Supervisor: None Pathology: Cervical cone, endo cervix, deeper and wider anterior cervical lip, deeper and wider posterior cervical lip, endo cervical curettage Complications: none Anesthesia: GLMA and Para cervical block Procedure: The patient was put in a dorsal lithotomy position, scrubbed and draped in the usual sterile fashion. A speculum was inserted inside the patient's vagina. The cervix is assessed using the colposcope with acetic acid , the lesions were seen, and at least 1 cm of the squamocolumnar junction was observed. A large loop was selected based upon the diameter of the lesion. Lugol solution was used to outline the lesions and area of the transformation zone order to be removed 10 cc of xylocaine with epinephrine were injected submucosally into the surface of the cervix (ectocervix) at the 3, 6, 9, and 12 o'clock positions. The electrosurgical generator is set at 40 olsen on blend 1. The loop is carefully passed simultaneously around and under the transformation zone, in order to ensure excising it making sure the lesion is at least 5 mm far from the specimen margins . The loop was allowed to glide through the cervix from one side to the other, allowing the cutting current to divide the tissue. This was followed by excision of the endo cervical top-hat excision , additional wider and deeper from the previous cervical cone tissue was excised from anterior and posterior cervical . An endo cervical curettage is performed following completion of excision, and hemostasis is obtained with a Ball electrode or regular tip cautery. At the end, Monsel's solution was applied to the cone bed. The patient tolerated the procedure well and, all instruments were taken out of the patient vaginal cavity, and the patient was transferred to the PACU in stable condition.
[2022-02-05 13:07] VITALS: BP 113/67; PULSE 97; RESP 16; TEMP 36.1; O2SAT 98
[2022-02-05 13:12] VITALS: BP 88/51; PULSE 85; RESP 16; O2SAT 100
[2022-02-05 13:17] VITALS: BP 106/62; PULSE 87; RESP 16; O2SAT 100
[2022-02-05 13:22] VITALS: BP 108/56; PULSE 95; RESP 18; TEMP 36.1; O2SAT 99
[2022-02-05 13:37] VITALS: BP 115/70; PULSE 85; RESP 18; TEMP 36.1; O2SAT 98
== END 2022-02-05 12:00 ==
LOC: HO.SSS 09:43
PROVIDERS: Nurse Practitioner; PCP Internal Medicine; Visit Provider Obstetrics & Gynecology
PROC: 0UBC7ZZ Excision of Cervix, Via Natural or Artificial Opening (ICD-10-PCS; CPT 57522; principal; 2022-02-05 12:50)
DX: D06.0 Carcinoma in situ of endocervix (principal); F41.1 Generalized anxiety disorder; M79.7 Fibromyalgia; G43.909 Migraine, unspecified, not intractable, without status migrainosus; J45.909 Unspecified asthma, uncomplicated; R59.1 Generalized enlarged lymph nodes; E89.0 Postprocedural hypothyroidism; E66.01 Morbid (severe) obesity due to excess calories; E55.9 Vitamin D deficiency, unspecified; Z68.42 Body mass index [BMI] 45.0-49.9, adult; F32.A Depression, unspecified; R79.89 Other specified abnormal findings of blood chemistry; Z85.850 Personal history of malignant neoplasm of thyroid; Z79.899 Other long term (current) drug therapy; Z88.8 Allergy status to other drugs, medicaments and biological substances; Z91.041 Radiographic dye allergy status; Z87.891 Personal history of nicotine dependence
CPT/HCPCS: 57461; 57505; 81025; 88305; 88307; J1100; J2250; J2405; J3010

== ENCOUNTER 2022-02-15 13:40 | Emergency (ER) | payer OTHER, SELFPAY ==
[2022-02-15 14:33] VITALS: BP 125/79; PULSE 91; RESP 16; TEMP 37.2; O2SAT 100; BMI 47.5
[2022-02-15 14:57] LABS: MANUAL DIFF FLAG NO
[2022-02-15 15:00] LABS: Basophils Percent Auto 0.4 % (0-2); Eosinophils Absolute Auto 0.3 X10*3/uL (0.0-0.4); Eosinophils Percent Auto 3.3 % (0-4); Hematocrit 38.4 % (37.0-47.0); Hemoglobin 12.7 g/dl (12.0-16.0); Imm Gran Abs Auto 0.04 X10*3/uL (0.00-0.03); Imm Gran Pct Auto 0.4 % (0.0-0.4); Lymphocytes Absolute Auto 2.4 X10*3/uL (1.2-4.9); Lymphocytes Percent Auto 24.6 % (20-40); Mean Corpuscular HGB Conc 33.1 g/dl (31.0-35.0); Mean Corpuscular Hemoglobin 29.8 pg (27.0-33.0); Mean Corpuscular Volume 90.1 fL (80.0-98.0); Mean Platelet Volume 8.9 fL (9.4-12.3); Monocytes Absolute Auto 0.8 X10*3/uL (0.1-1.2); Monocytes Percent Auto 8.4 % (2-11); Neutrophils Percent Auto 62.9 % (45-73); Platelet Count 379 X10*3/uL (160-400); Red Blood Count 4.26 X10*6/uL (4.20-5.50); Red Cell Distribution Width 13.2 % (11.0-16.0); White Blood Count 9.6 X10*3/uL (4.8-10.8)
[2022-02-15 15:03] LABS: UPreg QC Valid YES; Urine Pregnancy NEGATIVE (NEGATIVE)
[2022-02-15 15:06] LABS: Appearance Urine Cloudy; Color Urine Orange; Glucose Urine UA Negative (Negative); Leukocyte Esterase Urine Large (3+) (Negative); Nitrite Urine Negative (Negative); Urine Blood Large (3+) (Negative); Urine Ketones Trace mg/dL (Negative); Urine Protein 30 (1+) mg/dL (Neg-Trace)
[2022-02-15 15:07] LABS: Bacteria Urine 1+ (None Seen); Hyaline Casts Urine 0-2 /LPF (0-2); RBC Urine >20 /HPF (0-2); UACC Culture Trigger YES; WBC Urine >50 /HPF (0-5)
[2022-02-15 15:11] LABS: Anion Gap 14 (12-20); Blood Urea Nitrogen 10 mg/dL (9-16); Calcium 8.2 mg/dL (8.4-10.2); Carbon Dioxide 23 mmol/L (22-29); Chloride 106 mmol/L (96-108); Creatinine Clr Calc Pharmacy 110.2; Estimated Glomerular Filt Rate > 60; Glucose Random 82 mg/dL (60-115); Potassium 3.9 mmol/L (3.3-5.1); Sodium 139 mmol/L (135-145)
[2022-02-15 15:22] LABS: COVID-19 Test Negative (Negative); IDNOW Serial# 16C4AD1C
== END 2022-02-15 19:16 | disposition left against medical advice (07) ==
PROVIDERS: Emergency Provider Emergency Medicine; PCP Internal Medicine
DX: R53.1 Weakness (principal); Z20.822 Contact with and (suspected) exposure to COVID-19; B19.20 Unspecified viral hepatitis C without hepatic coma; E66.01 Morbid (severe) obesity due to excess calories; Z68.42 Body mass index [BMI] 45.0-49.9, adult; Z85.850 Personal history of malignant neoplasm of thyroid; Z87.891 Personal history of nicotine dependence
CPT/HCPCS: 80048; 81001; 81003; 81025; 85025; 87086; 87635; 99282; 99283

== ENCOUNTER → 2022-02-16 14:08 | Outpatient (REF) | payer OTHER, SELFPAY | LOC: HO.SL 14:08 | PROVIDERS: PCP Internal Medicine; Visit Provider Internal Medicine Pulmonary Disease | DX: G47.33 Obstructive sleep apnea (adult) (pediatric) (principal) | CPT/HCPCS: 95806 ==

== ENCOUNTER 2022-02-17 09:00 | Outpatient (REF) | payer OTHER, SELFPAY ==
--- NOTE | ~2022-02-17 | FL_ITS ---
EXAMINATION: XR FLUOROSCOPY UPPER GI WITH AIR CLINICAL INFORMATION: Gastroesophageal reflux disease without esophagitis. COMPARISON: None TECHNIQUE: Routine upper GI air-contrast study was performed. FINDINGS: Following oral administration of thick barium and effervescent granules, there is normal propagation of bolus from the oral cavity through the pharynx, esophagus into stomach without any obstruction, narrowing or stricture. On placing patient supine and prone lying, the course, caliber and the peristalsis of the stomach is normal. There is a large gastroesophageal reflux extending into the pharynx. The mucosal pattern of the stomach and the duodenal bulb is normal. The duodenal sweep is normal. Incidental note is made of cholecystectomy changes. FLUOROSCOPY TIME: 1.3 minutes DOSE AREA PRODUCT: 193 uGy-m2 (microgray-meter squared) FL/FL upper GI w air IMPRESSION: Large gastroesophageal reflux into the pharynx. No hiatal hernia seen.
== END 2022-02-17 09:01 | disposition home or self-care (01) ==
LOC: HO.XRAY 09:00
PROVIDERS: PCP Internal Medicine; Visit Provider Internal Medicine
DX: D06.9 Carcinoma in situ of cervix, unspecified (principal)
CPT/HCPCS: 74246; 99212

== ENCOUNTER 2022-02-17 10:06 | Outpatient (REF) | payer OTHER, SELFPAY | END 2022-02-17 10:07 | disposition home or self-care (01) | LOC: HO.MDS 10:06 | PROVIDERS: Visit Provider Internal Medicine Pulmonary Disease | DX: J45.50 Severe persistent asthma, uncomplicated (principal) | CPT/HCPCS: 74246; 96372; 99212; J2357 ==

== ENCOUNTER 2022-02-17 13:09 | Outpatient (REF) | payer OTHER, SELFPAY ==
--- NOTE | 2022-02-17 13:31 | ECG_ITS ---
Test Reason : e6.01 Blood Pressure : / mmHG Vent. Rate : 083 BPM Atrial Rate : 083 BPM P-R Int : 124 ms QRS Dur : 074 ms QT Int : 366 ms P-R-T Axes : 030 027 018 degrees QTc Int : 430 ms Normal sinus rhythm Normal ECG When compared with ECG of 15-JUL-2021 09:59, No significant change was found Referred By: Pedro Crouch Electronically Signed By:WILFREDO WHITEHEAD
[2022-02-17 13:49] LABS: MANUAL DIFF FLAG NO
[2022-02-17 14:05] LABS: Basophils Percent Auto 0.3 % (0-2); Eosinophils Absolute Auto 0.3 X10*3/uL (0.0-0.4); Eosinophils Percent Auto 3.3 % (0-4); Hematocrit 40.4 % (37.0-47.0); Hemoglobin 13.4 g/dl (12.0-16.0); Imm Gran Abs Auto 0.03 X10*3/uL (0.00-0.03); Imm Gran Pct Auto 0.3 % (0.0-0.4); Lymphocytes Absolute Auto 2.5 X10*3/uL (1.2-4.9); Lymphocytes Percent Auto 26.3 % (20-40); Mean Corpuscular HGB Conc 33.2 g/dl (31.0-35.0); Mean Corpuscular Hemoglobin 29.9 pg (27.0-33.0); Mean Corpuscular Volume 90.2 fL (80.0-98.0); Mean Platelet Volume 9.1 fL (9.4-12.3); Monocytes Absolute Auto 0.7 X10*3/uL (0.1-1.2); Monocytes Percent Auto 7.6 % (2-11); Neutrophils Absolute Auto 5.9 x10*3/uL (2.0-8.3); Neutrophils Percent Auto 62.2 % (45-73); Platelet Count 402 X10*3/uL (160-400); Red Blood Count 4.48 X10*6/uL (4.20-5.50); Red Cell Distribution Width 13.2 % (11.0-16.0); White Blood Count 9.4 X10*3/uL (4.8-10.8)
[2022-02-17 14:24] LABS: Estimated Average Glucose 103 mg/dL; Hemoglobin A1c % 5.2 %
[2022-02-17 15:01] LABS: Alanine Aminotransferase 45 U/L (0-31); Albumin Level 3.9 g/dL (3.5-5.0); Alkaline Phosphatase 72 U/L (39-117); Anion Gap 15 (12-20); Aspartate Amino Transferase 31 U/L (5-31); Bilirubin Total 0.2 mg/dL (0.0-1.0); Blood Urea Nitrogen 12 mg/dL (9-16); C Reactive Protein 1.47 mg/dL (< or = 0.50); Calcium 9.3 mg/dL (8.4-10.2); Carbon Dioxide 26 mmol/L (22-29); Chloride 104 mmol/L (96-108); Cholesterol 148 mg/dL; Estimated Glomerular Filt Rate > 60; Glucose Random 78 mg/dL (60-115); HDL Cholesterol 37 mg/dL; Iron 58 mcg/dL (30-160); LDL Cholesterol Calculated 92 mg/dl; Percent Iron Saturation 16 % (15-50); Potassium 4.5 mmol/L (3.3-5.1); Sodium 140 mmol/L (135-145); Total Iron Binding Capacity 374 mcg/dL (228-428); Total Protein 7.6 g/dL (6.5-8.0); Triglycerides 98 mg/dL; Unsaturated Iron Binding 316 ug/dL
[2022-02-17 15:14] LABS: Ferritin 19 ng/mL (10-122); Insulin 13 uU/mL (2-29); TSH reflex Free T4 0.02 uIU/mL (0.32-4.0); Vitamin D 25-OH Total 27.7 ng/mL (>30)
[2022-02-17 15:28] LABS: Folate 7.1 ng/mL (> or = 4.0); Vitamin B12 363 pg/mL (200-900)
[2022-02-17 15:46] LABS: Free T4 (Free Thyroxine) 1.71 ng/dL (0.71-1.85)
[2022-02-18 14:02] LABS: Calcium (PTHI) 9.3 mg/dL (8.6-10.2); PTHI 56 pg/mL (16-77)
[2022-02-21 18:42] LABS: Zinc 84 mcg/dL (60-130)
[2022-02-21 21:22] LABS: Hepatitis C Genotype 2
[2022-02-22 06:22] LABS: Vitamin B1 6 nmol/L (8-30)
[2022-02-24 10:26] LABS: Vitamin A 34 mcg/dL (38-98)
== END 2022-02-17 13:10 | disposition home or self-care (01) ==
LOC: HO.LAB 13:09
PROVIDERS: Absent Provider Internal Medicine; PCP Internal Medicine; Visit Provider Surgery
DX: B19.20 Unspecified viral hepatitis C without hepatic coma (principal); E66.01 Morbid (severe) obesity due to excess calories; F33.9 Major depressive disorder, recurrent, unspecified; G47.33 Obstructive sleep apnea (adult) (pediatric); J45.41 Moderate persistent asthma with (acute) exacerbation; K21.9 Gastro-esophageal reflux disease without esophagitis; M79.7 Fibromyalgia; Z68.42 Body mass index [BMI] 45.0-49.9, adult; Z91.09 Other allergy status, other than to drugs and biological substances
CPT/HCPCS: 36415; 80053; 80061; 82306; 82607; 82728; 82746; 83036; 83525; 83540; 83970; 84425; 84439; 84443; 84590; 84630; 85025; 86140; 87902; 93005

== ENCOUNTER 2022-03-02 13:45 | Outpatient (REF) | payer OTHER, SELFPAY | END 2022-03-02 13:46 | disposition home or self-care (01) | LOC: HO.MDS 13:45 | PROVIDERS: Visit Provider Internal Medicine Pulmonary Disease | DX: J45.50 Severe persistent asthma, uncomplicated (principal); C73 Malignant neoplasm of thyroid gland; R59.0 Localized enlarged lymph nodes; E89.0 Postprocedural hypothyroidism | CPT/HCPCS: 96372; 99212; J2357 ==

== ENCOUNTER 2022-03-09 12:37 | Outpatient (REF) | payer OTHER, SELFPAY ==
[2022-03-10 08:13] LABS: HBS Num1 0.33 mIU/mL (0-7.99); HBc Num1 0.34 S/CO (0.00-0.79); Hepatitis B Core Antibody Nonreactive (Nonreactive); ~Hepatitis B Surface Antibody NONREACTIVE (Nonreactive)
[2022-03-10 08:22] LABS: Hepatitis A Antibody IgG Nonreactive (Nonreactive)
[2022-03-15 01:12] LABS: FIB-ALT 59 U/L (6-29); FIB-Alpha-2-Macroglobulin 177 mg/dL (106-279); FIB-Apolipoprotein A1 118 mg/dL (101-198); FIB-GGT 34 U/L (3-50); FIB-Haptoglobin 117 mg/dL (43-212); FIB-Total Bilirubin 0.4 mg/dL (0.2-1.2); Liver Fibrosis Score 0.13; Liver Fibrosis Stage F0; Nec Inflam Act Grade A1; Nec Inflam Act Score 0.29
== END 2022-03-09 12:38 | disposition home or self-care (01) ==
LOC: HO.WFDLDS 12:37
PROVIDERS: Visit Provider Physician Assistant
DX: K21.9 Gastro-esophageal reflux disease without esophagitis (principal); B19.20 Unspecified viral hepatitis C without hepatic coma; R74.01 Elevation of levels of liver transaminase levels
CPT/HCPCS: 36415; 81596; 86704; 86706; 86708; 99202; 99212

== ENCOUNTER 2022-03-16 11:37 | Outpatient (REF) | payer OTHER, SELFPAY | END 2022-03-16 11:38 | disposition home or self-care (01) | LOC: HO.MDS 11:37 | PROVIDERS: Visit Provider Internal Medicine Pulmonary Disease | DX: J45.50 Severe persistent asthma, uncomplicated (principal) | CPT/HCPCS: 96372; J2357 ==

== ENCOUNTER 2022-03-30 11:30 | Outpatient (REF) | payer OTHER, SELFPAY | END 2022-03-30 11:31 | disposition home or self-care (01) | LOC: HO.MDS 11:30 | PROVIDERS: Visit Provider Internal Medicine Pulmonary Disease | DX: J45.50 Severe persistent asthma, uncomplicated (principal) | CPT/HCPCS: 96372; J2357 ==

== ENCOUNTER 2022-04-13 12:36 | Outpatient (REF) | payer OTHER, SELFPAY | END 2022-04-13 12:37 | disposition home or self-care (01) | LOC: HO.MDS 12:36 | PROVIDERS: Visit Provider Internal Medicine Pulmonary Disease | DX: J45.50 Severe persistent asthma, uncomplicated (principal) | CPT/HCPCS: 96372; J2357 ==

== ENCOUNTER 2022-04-20 10:07 | Outpatient (REF) | payer OTHER, SELFPAY ==
[2022-04-20 11:35] LABS: Free T4 (Free Thyroxine) 1.35 ng/dL (0.71-1.85); Thyroid Stimulating Hormone 0.45 uIU/mL (0.32-4.0)
== END 2022-04-20 10:08 | disposition home or self-care (01) ==
LOC: HO.US 10:07
PROVIDERS: Absent Provider Internal Medicine; PCP Internal Medicine; Visit Provider Surgery
DX: Z85.850 Personal history of malignant neoplasm of thyroid (principal); E66.9 Obesity, unspecified
CPT/HCPCS: 36415; 84439; 84443

== ENCOUNTER 2022-04-27 11:22 | Outpatient (REF) | payer OTHER, SELFPAY | END 2022-04-27 11:23 | disposition home or self-care (01) | LOC: HO.MDS 11:22 | PROVIDERS: Visit Provider Internal Medicine Pulmonary Disease | DX: J45.50 Severe persistent asthma, uncomplicated (principal) | CPT/HCPCS: 96372; J2357 ==

== ENCOUNTER 2022-05-11 12:06 | Outpatient (REF) | payer OTHER, SELFPAY | END 2022-05-11 12:07 | disposition home or self-care (01) | LOC: HO.MDS 12:06 | PROVIDERS: Visit Provider Internal Medicine Pulmonary Disease | DX: J45.50 Severe persistent asthma, uncomplicated (principal) | CPT/HCPCS: 96372; J2357 ==

== ENCOUNTER 2022-05-25 12:26 | Outpatient (REF) | payer OTHER, SELFPAY | END 2022-05-25 12:27 | disposition home or self-care (01) | LOC: HO.MDS 12:26 | PROVIDERS: Visit Provider Internal Medicine Pulmonary Disease | DX: J45.50 Severe persistent asthma, uncomplicated (principal) | CPT/HCPCS: 96372; J2357 ==

== ENCOUNTER 2022-06-08 11:52 | Outpatient (REF) | payer OTHER, SELFPAY | END 2022-06-08 11:53 | disposition home or self-care (01) | LOC: HO.MDS 11:52 | PROVIDERS: Visit Provider Internal Medicine Pulmonary Disease | DX: J45.50 Severe persistent asthma, uncomplicated (principal) | CPT/HCPCS: 96372; J2357 ==

== ENCOUNTER 2022-06-22 12:20 | Outpatient (REF) | payer OTHER, SELFPAY | END 2022-06-22 12:21 | disposition home or self-care (01) | LOC: HO.MDS 12:20 | PROVIDERS: Visit Provider Internal Medicine Pulmonary Disease | DX: J45.50 Severe persistent asthma, uncomplicated (principal) | CPT/HCPCS: 96372; J2357 ==

== ENCOUNTER 2022-07-06 12:36 | Outpatient (REF) | payer OTHER, SELFPAY | END 2022-07-06 12:37 | disposition home or self-care (01) | LOC: HO.MDS 12:36 | PROVIDERS: Visit Provider Internal Medicine Pulmonary Disease | DX: J45.50 Severe persistent asthma, uncomplicated (principal) | CPT/HCPCS: 96372; J2357 ==

== ENCOUNTER 2022-07-20 12:01 | Outpatient (REF) | payer OTHER, SELFPAY | END 2022-07-20 12:02 | disposition home or self-care (01) | LOC: HO.MDS 12:01 | PROVIDERS: Visit Provider Internal Medicine Pulmonary Disease | DX: J45.50 Severe persistent asthma, uncomplicated (principal) | CPT/HCPCS: 96372; J2357 ==

== ENCOUNTER 2022-07-28 14:13 | Outpatient (REF) | payer OTHER, SELFPAY ==
[2022-07-28 14:43] LABS: MANUAL DIFF FLAG NO
[2022-07-28 15:20] LABS: Basophils Absolute Auto 0.1 X10*3/uL (0.0-0.2); Basophils Percent Auto 0.7 % (0-2); Eosinophils Absolute Auto 0.4 X10*3/uL (0.0-0.4); Eosinophils Percent Auto 4.6 % (0-4); Hematocrit 40.1 % (37.0-47.0); Hemoglobin 12.9 g/dl (12.0-16.0); Imm Gran Abs Auto 0.03 X10*3/uL (0.00-0.03); Imm Gran Pct Auto 0.3 % (0.0-0.4); Lymphocytes Absolute Auto 2.8 X10*3/uL (1.2-4.9); Lymphocytes Percent Auto 31.2 % (20-40); Mean Corpuscular HGB Conc 32.2 g/dl (31.0-35.0); Mean Corpuscular Hemoglobin 29.3 pg (27.0-33.0); Mean Corpuscular Volume 90.9 fL (80.0-98.0); Mean Platelet Volume 9.1 fL (9.4-12.3); Monocytes Absolute Auto 0.7 X10*3/uL (0.1-1.2); Monocytes Percent Auto 7.9 % (2-11); Neutrophils Percent Auto 55.3 % (45-73); Platelet Count 404 X10*3/uL (160-400); Red Blood Count 4.41 X10*6/uL (4.20-5.50); Red Cell Distribution Width 13.8 % (11.0-16.0)
[2022-07-28 15:53] LABS: C Reactive Protein 1.68 mg/dL (< or = 0.50); Rheumatoid Factor < 13.0 IU/mL (<15.0)
[2022-07-28 16:01] LABS: Erythrocyte Sedimentation Rate 28 MM/HR (0-20)
[2022-07-28 16:20] LABS: Folate 9.1 ng/mL (> or = 4.0); TSH reflex Free T4 1.09 uIU/mL (0.32-4.0); Vitamin B12 420 pg/mL (200-900); Vitamin D 25-OH Total 31.5 ng/mL (>30)
[2022-07-30 08:44] LABS: Lyme Abs Screen <0.90 index
[2022-08-01 13:39] LABS: Anti Nuclear Antibody Screen NEGATIVE (NEGATIVE)
== END 2022-07-28 14:14 | disposition home or self-care (01) ==
LOC: HO.LAB 14:13
PROVIDERS: PCP Internal Medicine; Visit Provider Internal Medicine
DX: M79.10 Myalgia, unspecified site (principal); R53.83 Other fatigue; E53.8 Deficiency of other specified B group vitamins; E55.9 Vitamin D deficiency, unspecified
CPT/HCPCS: 36415; 82306; 82607; 82746; 84443; 85025; 85652; 86038; 86039; 86140; 86431; 86617; 86618

== ENCOUNTER 2022-08-03 12:09 | Outpatient (REF) | payer OTHER, SELFPAY | END 2022-08-03 12:10 | disposition home or self-care (01) | LOC: HO.MDS 12:09 | PROVIDERS: Visit Provider Internal Medicine Pulmonary Disease | DX: J45.50 Severe persistent asthma, uncomplicated (principal) | CPT/HCPCS: 96372; J2357 ==

== ENCOUNTER 2022-08-24 11:48 | Outpatient (REF) | payer OTHER, SELFPAY ==
[2022-08-28 06:04] LABS: HPV mRNA E6/E7 rflx Not Detected (Not Detected)
== END 2022-08-24 11:49 | disposition home or self-care (01) ==
LOC: HO.LNP 11:48
PROVIDERS: PCP Internal Medicine; Visit Provider Obstetrics & Gynecology
DX: Z12.4 Encounter for screening for malignant neoplasm of cervix (principal); Z11.51 Encounter for screening for human papillomavirus (HPV); D06.9 Carcinoma in situ of cervix, unspecified; N93.9 Abnormal uterine and vaginal bleeding, unspecified
CPT/HCPCS: 57454; 58100; 58110; 81025; 87624; 88142; 88305; 99212

== ENCOUNTER 2022-08-24 12:54 | Outpatient (REF) | payer OTHER, SELFPAY | END 2022-08-24 12:55 | disposition home or self-care (01) | LOC: HO.MDS 12:54 | PROVIDERS: Visit Provider Internal Medicine Pulmonary Disease | DX: J45.50 Severe persistent asthma, uncomplicated (principal) | CPT/HCPCS: 96372; J2357 ==

== ENCOUNTER 2022-08-24 13:45 | Outpatient (REF) | payer OTHER, SELFPAY ==
[2022-08-24 14:33] LABS: Hematocrit 38.9 % (37.0-47.0); Hemoglobin 12.3 g/dl (12.0-16.0); Mean Corpuscular HGB Conc 31.6 g/dl (31.0-35.0); Mean Corpuscular Hemoglobin 28.4 pg (27.0-33.0); Mean Corpuscular Volume 89.8 fL (80.0-98.0); Mean Platelet Volume 9.2 fL (9.4-12.3); Platelet Count 364 X10*3/uL (160-400); Red Blood Count 4.33 X10*6/uL (4.20-5.50); Red Cell Distribution Width 13.7 % (11.0-16.0); White Blood Count 8.4 X10*3/uL (4.8-10.8)
[2022-08-24 15:35] LABS: HCG Quantitative < 2 mIU/mL
[2022-08-24 18:11] LABS: CT PCR NOT DETECTED (Not Detect.); NG PCR NOT DETECTED (Not Detect.)
== END 2022-08-24 13:46 | disposition home or self-care (01) ==
LOC: HO.LAB 13:45
PROVIDERS: Absent Provider Internal Medicine; PCP Internal Medicine; Visit Provider Obstetrics & Gynecology
DX: N93.9 Abnormal uterine and vaginal bleeding, unspecified (principal)
CPT/HCPCS: 0353U; 84702; 85027

== ENCOUNTER 2022-09-07 12:23 | Outpatient (REF) | payer OTHER, SELFPAY | END 2022-09-07 12:24 | disposition home or self-care (01) | LOC: HO.MDS 12:23 | PROVIDERS: Visit Provider Internal Medicine Pulmonary Disease | DX: J45.50 Severe persistent asthma, uncomplicated (principal) | CPT/HCPCS: 96372; J2357 ==

== ENCOUNTER 2022-09-21 11:54 | Outpatient (REF) | payer OTHER, SELFPAY | END 2022-09-21 11:55 | disposition home or self-care (01) | LOC: HO.MDS 11:54 | PROVIDERS: Visit Provider Internal Medicine Pulmonary Disease | DX: J45.50 Severe persistent asthma, uncomplicated (principal) | CPT/HCPCS: 96372; J2357 ==

== ENCOUNTER 2022-09-27 12:52 | Outpatient (AMB) | payer OTHER, SELFPAY ==
[2022-09-27 13:02] VITALS: BP 130/88; PULSE 104; O2SAT 99; BMI 50.8
--- NOTE | 2022-09-27 13:02 | MHC.PC.OV ---
Vital Signs 09/27/22 13:02 Height 5 ft 3 in Weight 287 lb BMI 50.8 BP 130/88 Blood Pressure Location Lt brachial Position Sitting Pulse 104 H Pulse Source Pulse Oximeter Pulse Oximetry (%) 99 Oxygen Delivery Method Room Air Intake Visit Reasons: fibromyalgia, anxiety, depression Intake Note: Patient is here to discuss fibromyalgia, anxiety, and depression. Washroom Operator Required: No Accompanied by: Self / Same As Patient Allergies morphine [MORPHINE] Allergy (Intermediate, Verified 08/17/23 11:46) WBC ELEVATED/ N/V shellfish derived [SHELLFISH DERIVED] Allergy (Intermediate, Verified 08/17/23 11:46) HIVES iodine [IODINE] Allergy (Mild, Verified 08/17/23 11:46) RASH duloxetine Adverse Reaction (Intermediate, Verified 08/17/23 11:46) vomiting Medication List - Last Reconciled 09/27/22 by Lavon Richardson MD bupropion HCl 300 mg PO QAM 30 days djavkkmkpu-ahnmmbyxbyxjt-pcqs 50-325-40 mg 1 tab PO Q6-8H PRN 30 days calcium citrate 250 mg PO DAILY 30 days cholecalciferol (vitamin D3) 1,250 mcg PO QWEEK 8 weeks cholecalciferol (vitamin D3) 125 mcg PO DAILY clonazepam (Klonopin) 1 mg PO DAILY fluoxetine 20 mg PO DAILY 30 days fluticasone propion-salmeterol 115-21 mcg/actuation (Advair HFA) 2 puffs inhalation BID 30 days gabapentin 800 mg PO QID 30 days hydroxyzine HCl 50 mg PO TID PRN 30 days ibuprofen 600 mg PO Q8H PRN ipratropium-albuterol 0.5 mg-3 mg(2.5 mg base)/3 mL 3 mL inhalation Q4-6H PRN 30 days levothyroxine 150 mcg PO DAILY 30 days mecobalamin (vitamin B12) 1,000 mcg sublingual DAILY [NEBULIZER Use as directed as needed] omalizumab (Xolair) 300 mg subcut Q2W 28 days omeprazole 20 mg PO DAILY 30 days pregabalin 50 mg PO TID 30 days thiamine HCl (vitamin B1) 100 mg PO DAILY tizanidine 4 mg PO TID PRN 30 days topiramate 25 mg PO BEDTIME triamcinolone acetonide 0.025% 1 appl topical BID umeclidinium 62.5 mcg/actuation (Incruse Ellipta) 1 inh inhalation DAILY 30 days Ventolin HFA 90 mcg/actuation (albuterol sulfate) 2 puffs inhalation Q4-6H PRN NS vitamin A palmitate 10,000 units orally one per day; Tobacco use date assessed: 09/27/22 HPI fibromyalgia, anxiety, depression HPI Details Patient comes in today for her follow up visit States that she has been experiencing increased allergy symptoms lately and these are in turn aggravating and triggering her asthma flare ups States that she has been using her asthma inhalers (Advair and Albuterol) regularly lately as a result Also continues to experience increased frequent headaches and that her Topiramate 25 mg QD does not seem to be helping much Has also noticed some word-forming difficulties on her part lately - feels that her speech gets slurred often and this is entirely unintentional Relates (+) strong family Hx of MS and she is very concerned about her own risk; feels that some of her current symptoms may suggest the onset of MS and she would like to have some tests done to check these out further States that she has been seeing some dark shadows at the edge or corner of her field of vision often lately Denies any eye pain but relates (+) photophobia at times when her headaches increases Is still seeing a psychologist but she cannot prescribe any Rx for patients; she would like to try seeing a psychiatrist instead who can prescribe and adjust her meds when needed as soon as possible She denies any chest pains No nausea/vomiting, no abdominal pain No change in bowel habits noted States that she has not received any Rx for a CPAP device yet - is under the impression that her home sleep study done last fall came back positive Also needs several of her Rx refilled today [facility] Medical History (Updated 08/07/23 @ 16:28 by Pedro Crouch MD) Anemia Morbid obesity Hypersomnia Loud snoring Blurry vision, bilateral Chronic migraine without aura PTSD (post-traumatic stress disorder) Bipolar depression Depression Morbid obesity with BMI of 45.0-49.9, adult Migraine Bilateral foot pain Fibromyalgia History of thyroid cancer Smoker Papillary thyroid carcinoma Post-surgical hypothyroidism Bilateral lower extremity edema Elevated LFTs Anxiety Asthma Hypothyroidism Cervical lymphadenopathy Vitamin D deficiency Thyroid cancer Surgical History History of surgery Hx of lymph node biopsy Hx of total thyroidectomy (~05/2020) Hx of section Hx of cholecystectomy Family History Father Diabetes Asthma Hypertension Mother Diabetes Hypertension Multiple sclerosis Daughter No problems noted. Daughter No problems noted. Daughter No problems noted. Daughter Deaf Asthma Daughter Deaf Son No problems noted. Son Asthma Son No problems noted. Social History Household Members: Family Household Members Other:: is recenlty - has 8 children_(8-18) Housing: Apartment Alcohol intake: former Patient Tobacco Use Status: Former Tobacco user Quit Date: 01/05/22 Tobacco use type: Cigarette Years Smoked: 20 years e-Cigarette/Vaping Use: Currently Using Second Hand Smoke Exposure: Yes service: No Current occupational status: unemployed Current occupational exposures/hazards: No Cognitive needs: No Hearing needs: No Vision needs: No Female Reproductive History Menstrual Age of Menarche: 12 Questionnaire PHQ-9 Over the last 2 weeks, how often have you been bothered by any of the following problems? 1. Little interest or pleasure in doing things: nearly every day 2. Feeling down, depressed, or hopeless: nearly every day 3. Trouble falling or staying asleep, or sleeping too much: nearly every day 4. Feeling tired or having little energy: more than half the days 5. Poor appetite or overeating: more than half the days 6. Feeling bad about yourself - or that you are a failure or have let yourself or your family down: more than half the days 7. Trouble concentrating on things, such as reading the newspaper or watching television: not at all 8. Moving or speaking so slowly that other people could have noticed. Or the opposite - being so fidgety or restless that you have been moving around a lot more than usual: not at all 9. Thoughts that you would be better off or of hurting yourself in some way: not at all Total score: 15 Depression Screening Interpretation: Positive Depression Screening Follow-up: Existing condition, In treatment and Community Mental Health Worker F/U 44075 - PHQ-9 Billing: Yes Source: Developed by Drs. Alexander Avila, Shirlene B.WValdemar Haq and colleagues, with an educational dilma from [employer]. Thrive Questionnaire Declines Thrive assessment: No Date Thrive assessed: 09/27/22 I am a: Patient What is your living situation today?: I have a steady place to live Within the past 12 months, did the food you bought not last and you didn't have the money to get more?: Never true Within the past 12 months, did you worry whether your food would run out before you got money to buy more?: Never true Do you have trouble paying for medicines?: No Do you have trouble getting transportation to medical appointments?: No Do you have trouble paying your heating and electricity bill?: No Do you have trouble taking care of your child, family member or friend?: No Do you have trouble with day-to-day activities such as bathing, preparing meals, shopping, managing finances, etc.?: No Are you currently unemployed and looking for a job?: No Are you interested in more education?: No Currently or been in a relationship where the following occur: no concerns reported AUDIT C Alcohol Use Questionnaire (AUDIT-C) 1. How often do you have a drink containing alcohol?: Never 3. How often do you have six or more drinks on one occasion?: Never Total Score: 0 Score Reviewed/Action Taken: Yes RUSSELL-7 AMB Questionnaire RUSSELL-7 Date RUSSELL - 7 assessed: 09/27/22 Feeling nervous, anxious, or on edge: 3 = Nearly every day Not being able to stop or control worryin = Nearly every day Worrying too much about different things: 3 = Nearly every day Trouble relaxin = Nearly every day Being so restless that it is hard to sit still: 2 = More than half the days Becoming easily annoyed or irritable: 0 = Not at all Feeling afraid as if something awful might happen: 0 = Not at all Total RUSSELL-7 score (0-4 normal; 5-9 mild; 10-14 moderate; 15-21 severe): 14 Source: Developed by Drs. Alexander Avila, Valdemar Vela and colleagues, with an educational dilma from [employer]. Review of Systems Const Reports body aches (diffuse), Denies chills, Reports fatigue (increasing), Denies fever(s), Reports headache(s) (recurrent) and Denies malaise Eyes Details: (+) sees dark shadows at the edge of her vision on and off lately Reports photophobia (when headaches are increased) ENT Denies dysphagia, Denies dizziness, Denies otalgia, Reports headache(s) (recurrent) and Denies sore throat Card Denies chest pain, Denies rapid heart rate and Reports dyspnea on exertion (mild) Resp Denies chest congestion, Reports cough (on and off), Reports dyspnea on exertion (mild) and Reports wheezing (at times, when her asthma flares up) GI Denies abdominal pain, Denies constipation, Denies dysphagia, Reports heartburn, Denies diarrhea, Denies nausea and Denies vomiting Details: (+) urinary frequency Reports nocturia, Denies dysuria and Denies urinary urgency Musc Reports back pain (diffuse), Reports myalgias (increased lately), Reports arthralgias (on and off), Reports muscle weakness and Reports tingling (on and off over the bottom of both feet) Skin/Breast Denies rash Neuro Details: c/o some word-forming difficulties/slurring of speech at times - see HPI Denies dizziness, Reports headache(s) (recurrent) and Reports tingling (on and off over the bottom of both feet) Psych Reports anxiety (increasing) and Reports depression Endo Reports fatigue (increasing) Parish/Lymph Denies easy bruising Aller/Immun Denies seasonal rhinorrhea and Reports wheezing (at times, when her asthma flares up) Physical exam (Primary Care) Vital Signs: Last Vital Signs Pulse 104 H 09/27/22 13:02 BP 130/88 09/27/22 13:02 Pulse Ox 99 09/27/22 13:02 Oxygen Delivery Method Room Air 09/27/22 13:02 BMI result Body Mass Index 50.8 Tobacco/Smoking Status: Tobacco use Status Tobacco use date assessed 09/27/22 09/27/22 13:13 Patient Tobacco Use Status Former Tobacco user 09/27/22 13:13 Tobacco use type Cigarette 09/27/22 13:13 e-Cigarette/Vaping Use Never Used 09/27/22 13:13 PHQ-9: PHQ-9 Score PHQ-9: Total score 15 09/27/22 14:22 Depression Screening Interpretation: Positive Depression Screening Follow-up: Existing condition, In treatment and Community Mental Health Worker F/U Thrive Assessment: Date of Thrive Assessment Date Thrive assessed 09/27/22 09/27/22 13:13 Currently or been in a relationship where the following occur: no concerns reported Const General: no acute distress and alert Orientation/consciousness: patient oriented x3 HENMT Ears: TM's normal bilaterally Throat: Yes posterior oropharynx normal and Yes tonsils normal (no TP congestion noted) Eyes Direct Ophthalmoscopy: photophobia (when headaches are increased) Neck Neck: Yes no lymphadenopathy and Yes supple Thyroid: Thyroid normal Resp Auscultation: clear to auscultation bilaterally, no rales and no wheezes Cardio Rate: regular rate Rhythm: regular rhythm Heart sounds: no murmurs GI Palpation (GI): Soft to palpation and nontender Auscultation: normal bowel sounds General: Yes no CVA tenderness Back/Spine/Pelvis Back: no CVA tenderness Thoracic/Lumbar Spine: paraspinal muscle tenderness bilaterally in the upper thoracic, in the mid thoracic, in the lower thoracic, in the upper lumbar, in the mid lumbar and in the lower lumbar and lumbar spinal tenderness Skin Rashes: no rashes Neuro General: patient oriented x3 Cognition (Neuro): normal cognition Gait exam (Neuro): Normal gait present Motor exam (neuro): 5/5 motor strength present throughout Extrem General: Yes no clubbing, cyanosis or edema Psych Affect: Anxious affect present Thought content: Depressive thoughts present Assessment and Plan Assessment & Plan (1) Fibromyalgia: Code(s): M79.7 - Fibromyalgia Plan: Will send her for some labs YOLANDA for further evaluation of all of the above symptoms she presented as mentioned in her H and P today We switched her from Gabapentin over to Pregabalin 50 mg TID a couple of months ago Continue Tizanidine 4 mg TID PRN (2) Asthma: Code(s): J45.909 - Unspecified asthma, uncomplicated Qualifiers: Asthma complication type: uncomplicated Asthma persistence: persistent Asthma severity: moderate Qualified Code(s): J45.40 - Moderate persistent asthma, uncomplicated Plan: Continue Advair HFA 115-21 mcg 2 inhalations BID and Albuterol HFA 2 inhalations every 6 hours as needed Is still on Xolair injection 300 mg SQ every 2 weeks by pulmonary - follow up with pulmonary as scheduled (3) Vision abnormalities: Code(s): H53.9 - Unspecified visual disturbance Plan: Will refer her to ophthalmology for further evaluation and management (4) GERD (gastroesophageal reflux disease): Code(s): K21.9 - Gastro-esophageal reflux disease without esophagitis Qualifiers: Esophagitis presence: without esophagitis Qualified Code(s): K21.9 - Gastro-esophageal reflux disease without esophagitis Plan: Reinforced dietary restrictions Upper GI series done a few months ago revealed (+) large gastroesophageal reflux into the pharynx. No hiatal hernia seen Continue Omeprazole 20 mg QD (5) Post-surgical hypothyroidism: Code(s): E89.0 - Postprocedural hypothyroidism Plan: Continue Levothyroxine 175 mcg QD Follow up with endocrinology as scheduled (6) Papillary thyroid carcinoma: Comment: S/P total thyroidectomy by Dr. Cosme in May 2020 Code(s): C73 - Malignant neoplasm of thyroid gland Plan: Follow up with endocrinology as scheduled for continuing surveillance (7) Vitamin D deficiency: Code(s): E55.9 - Vitamin D deficiency, unspecified Plan: Continue Vitamin D3 2000 units QD and 5000 units once a week (8) Migraine: Code(s): G43.909 - Migraine, unspecified, not intractable, without status migrainosus Qualifiers: Intractability: not intractable Migraine type: unspecified Status migrainosus presence: without status migrainosus Qualified Code(s): G43.909 - Migraine, unspecified, not intractable, without status migrainosus Plan: Will increase her Topiramate from 25 mg to 50 mg Q HS for headache prophylaxis Continue Fioricet 50-325-40 mg PRN for symptomatic relief (9) Speech impediment: Code(s): R47.9 - Unspecified speech disturbances Plan: Will refer her to neurology for further evaluation and management She is advised to speak with neurology further regarding her recent symptoms and if neurology also suspects some underlying neurologic condition for her symptoms, then they can send her for whatever work ups and tests they feel would be appropriate (10) Anxiety: Code(s): F41.9 - Anxiety disorder, unspecified Plan: Continue Clonazepam 1 mg QD PRN and Hydroxyzine 50 mg TID PRN She is also on Fluoxetine 20 mg QD and this should also help with her anxiety (11) Depression: Code(s): F32.A - Depression, unspecified Qualifiers: Active/Remission status: currently active Depression Type: major depressive disorder Major depression episode severity: unspecified Major depression recurrence: recurrent Qualified Code(s): F33.9 - Major depressive disorder, recurrent, unspecified Plan: Continue Bupropion 300 mg Q AM and Fluoxetine 20 mg QD She is on Topiramate 25 mg Q HS for her migraine - advised that this can also help as a mood stabilizer so she should continue on this as well Per request, will refer her to psychiatry for further evaluation and management (12) Morbid obesity with BMI of 45.0-49.9, adult: Code(s): E66.01 - Morbid (severe) obesity due to excess calories; Z68.42 - Body mass index [BMI] 45.0-49.9, adult Plan: Reinforced diet/exercise as tolerated/lose weight Follow up with weight management as scheduled Plan Follow up in 3 months Orders: Orders Thyroid Stimulating Hormone 09/27/22 E03.9 - Hypothyroidism, unspecified, R20.2 - Paresthesia of skin Free T4 (Free Thyroxine) 09/27/22 E03.9 - Hypothyroidism, unspecified, R20.2 - Paresthesia of skin Vitamin B12 and Folate 09/27/22 E53.8 - Deficiency of other specified B group vitamins, R20.2 - Paresthesia of skin Magnesium 09/27/22 E83.42 - Hypomagnesemia, R20.2 - Paresthesia of skin Hemoglobin A1c 09/27/22 R35.0 - Frequency of micturition Comprehensive Met. Panel 09/27/22 R35.0 - Frequency of micturition Erythrocyte Sedimentation Rate 09/27/22 R35.0 - Frequency of micturition, R20.2 - Paresthesia of skin UA CC w/rflx Micro + Cult 09/27/22 R30.0 - Dysuria, R35.0 - Frequency of micturition Referrals Neurology Referral G43.909 - Migraine, unspecified, not intractable, without status migrainosus, R47.9 - Unspecified speech disturbances, H53.9 - Unspecified visual disturbance, Z82.0 - Family history of epilepsy and other diseases of the nervous system Ophthalmology Referral H53.9 - Unspecified visual disturbance Psychiatry Referral F32.A - Depression, unspecified, F31.9 - Bipolar disorder, unspecified, F43.10 - Post-traumatic stress disorder, unspecified, F41.9 - Anxiety disorder, unspecified Medications: Changed From topiramate 25 mg PO BEDTIME 30 tabs 3RF To topiramate 50 mg PO BEDTIME 30 tabs 3RF 30 days Coding Level of Care Code Est Pt Level 4 (36905) Diagnoses Fibromyalgia M79.7 Moderate persistent asthma without complication J45.40 Asthma complication type: uncomplicated Asthma persistence: persistent Asthma severity: moderate Vision abnormalities H53.9 Gastroesophageal reflux disease without esophagitis K21.9 Esophagitis presence: without esophagitis Post-surgical hypothyroidism E89.0 Papillary thyroid carcinoma C73 Vitamin D deficiency E55.9 Migraine without status migrainosus, not intractable, unspecified migraine type G43.909 Intractability: not intractable Migraine type: unspecified Status migrainosus presence: without status migrainosus Speech impediment R47.9 Anxiety F41.9 Episode of recurrent major depressive disorder, unspecified depression episode severity F33.9 Active/Remission status: currently active Depression Type: major depressive disorder Major depression episode severity: unspecified Major depression recurrence: recurrent Morbid obesity with BMI of 45.0-49.9, adult E66.01; Z68.42
== END 2022-09-27 13:56 | disposition home or self-care (01) ==
LOC: HO.HMGH 12:52
PROVIDERS: PCP Internal Medicine; Visit Provider Internal Medicine
DX: M79.7 Fibromyalgia (principal); J45.40 Moderate persistent asthma, uncomplicated; H53.9 Unspecified visual disturbance; K21.9 Gastro-esophageal reflux disease without esophagitis; E89.0 Postprocedural hypothyroidism; C73 Malignant neoplasm of thyroid gland; E55.9 Vitamin D deficiency, unspecified; G43.909 Migraine, unspecified, not intractable, without status migrainosus; R47.9 Unspecified speech disturbances; F41.9 Anxiety disorder, unspecified; F33.9 Major depressive disorder, recurrent, unspecified; E66.01 Morbid (severe) obesity due to excess calories
CPT/HCPCS: 99499

== ENCOUNTER 2022-09-27 14:02 | Outpatient (REF) | payer OTHER, SELFPAY ==
[2022-09-27 15:08] LABS: Appearance Urine Cloudy; Color Urine Yellow; Glucose Urine UA Negative (Negative); Leukocyte Esterase Urine Trace (Negative); Nitrite Urine Negative (Negative); PH 7.5 (5.0-9.0); Specific Gravity - Urine 1.025 (1.005-1.025); UMIC TRIGGER UACC YES; Urine Blood Negative (Negative); Urine Ketones Negative (Negative); Urine Protein Negative (Neg-Trace)
[2022-09-27 15:15] LABS: Bacteria Urine 2+ (None Seen); Hyaline Casts Urine 0-2 /LPF (0-2); RBC Urine 0-2 /HPF (0-2); Squamous Epithelial Cell Urine >20 /HPF (0-2); WBC Urine 0-5 /HPF (0-5)
[2022-09-27 15:20] LABS: Estimated Average Glucose 108 mg/dL; Hemoglobin A1c % 5.4 %
[2022-09-27 16:05] LABS: Alanine Aminotransferase 60 U/L (0-31); Albumin Level 3.7 g/dL (3.5-5.0); Alkaline Phosphatase 78 U/L (39-117); Anion Gap 8 (12-20); Aspartate Amino Transferase 39 U/L (5-31); Bilirubin Total 0.3 mg/dL (0.0-1.0); Blood Urea Nitrogen 12 mg/dL (9-16); Calcium 8.6 mg/dL (8.4-10.2); Carbon Dioxide 27 mmol/L (22-29); Chloride 110 mmol/L (96-108); Estimated Glomerular Filt Rate > 60; Glucose Random 99 mg/dL (60-115); Magnesium 1.9 mg/dL (1.6-2.6); Potassium 4.4 mmol/L (3.3-5.1); Sodium 141 mmol/L (135-145); Total Protein 7.1 g/dL (6.5-8.0)
[2022-09-27 16:17] LABS: Erythrocyte Sedimentation Rate 16 MM/HR (0-20)
[2022-09-27 16:36] LABS: Free T4 (Free Thyroxine) 1.22 ng/dL (0.71-1.85); Thyroid Stimulating Hormone 0.66 uIU/mL (0.32-4.0); Vitamin B12 369 pg/mL (200-900)
== END 2022-09-27 14:03 | disposition home or self-care (01) ==
LOC: HO.LAB 14:02
PROVIDERS: PCP Internal Medicine; Visit Provider Internal Medicine
DX: E53.8 Deficiency of other specified B group vitamins (principal); R20.2 Paresthesia of skin; R30.0 Dysuria; R35.0 Frequency of micturition; E03.9 Hypothyroidism, unspecified; E83.42 Hypomagnesemia
CPT/HCPCS: 36415; 80053; 81001; 81003; 82607; 82746; 83036; 83735; 84439; 84443; 85652

== ENCOUNTER 2022-10-05 11:56 | Outpatient (REF) | payer OTHER, SELFPAY | END 2022-10-05 11:57 | disposition home or self-care (01) | LOC: HO.MDS 11:56 | PROVIDERS: Visit Provider Internal Medicine Pulmonary Disease | DX: J45.50 Severe persistent asthma, uncomplicated (principal) | CPT/HCPCS: 96372; J2357 ==

== ENCOUNTER 2022-10-08 13:07 | Outpatient (REF) | payer OTHER, SELFPAY ==
--- NOTE | ~2022-10-08 | US_ITS ---
EXAMINATION: US PELVIS CLINICAL INFORMATION: 37-year-old with abnormal uterine bleeding, LMP today COMPARISON: None available. TECHNIQUE: Ultrasound of the pelvis is performed using both transabdominal and transvaginal transducers along with Doppler. Transvaginal imaging is performed due to inadequate visualization transabdominally. FINDINGS: Uterus: The uterus is anteverted and measures 8.7 x 5.1 x 5.8 cm. The double wall endometrial thickness is 0.7 mm. The uterus is smooth in contour and has normal myometrial echogenicity. No visible fibroid. Adnexa: Both ovaries are visualized. There is normal color flow to the adnexa. There is no ovarian torsion. There is no pelvic ascites or fluid collection. Right ovary measures 2.9 x 1.8 x 2.6 cm. Left ovary measures 2.2 x 1.4 x 2.0 cm. US/US pelvic and transvaginal IMPRESSION: Unremarkable pelvic ultrasound.
== END 2022-10-08 13:08 | disposition home or self-care (01) ==
LOC: HO.US 13:07
PROVIDERS: Visit Provider Obstetrics & Gynecology
DX: N93.9 Abnormal uterine and vaginal bleeding, unspecified (principal)
CPT/HCPCS: 76830; 76856

== ENCOUNTER 2022-11-02 11:17 | Outpatient (REF) | payer OTHER, SELFPAY | END 2022-11-02 11:18 | disposition home or self-care (01) | LOC: HO.MDS 11:17 | PROVIDERS: Visit Provider Internal Medicine Pulmonary Disease | DX: J45.50 Severe persistent asthma, uncomplicated (principal) | CPT/HCPCS: 96372; J2357 ==

== ENCOUNTER 2022-11-03 16:19 | Outpatient (REF) | payer OTHER, SELFPAY | END 2022-11-03 16:20 | disposition home or self-care (01) | LOC: HO.LAB 16:19 | PROVIDERS: PCP Internal Medicine; Visit Provider Internal Medicine Pulmonary Disease | DX: Z91.09 Other allergy status, other than to drugs and biological substances (principal) | CPT/HCPCS: 36415; 82785; 86003 ==

== ENCOUNTER 2022-11-16 11:58 | Outpatient (REF) | payer OTHER, SELFPAY | END 2022-11-16 11:59 | disposition home or self-care (01) | LOC: HO.MDS 11:58 | PROVIDERS: Visit Provider Internal Medicine Pulmonary Disease | DX: J45.50 Severe persistent asthma, uncomplicated (principal) | CPT/HCPCS: 96372; J2357 ==

== ENCOUNTER 2022-12-01 11:50 | Outpatient (REF) | payer OTHER, SELFPAY | END 2022-12-01 11:51 | disposition home or self-care (01) | LOC: HO.MDS 11:50 | PROVIDERS: Visit Provider Internal Medicine Pulmonary Disease | DX: J45.50 Severe persistent asthma, uncomplicated (principal) | CPT/HCPCS: 96372; J2357 ==

== ENCOUNTER 2022-12-29 14:27 | Outpatient (REF) | payer OTHER, SELFPAY | END 2022-12-29 14:28 | disposition home or self-care (01) | LOC: HO.MDS 14:27 | PROVIDERS: PCP Internal Medicine; Visit Provider Internal Medicine Pulmonary Disease | DX: J45.50 Severe persistent asthma, uncomplicated (principal) | CPT/HCPCS: 96372; J2357 ==

== ENCOUNTER 2023-01-11 11:12 | Outpatient (REF) | payer OTHER, SELFPAY | END 2023-01-11 11:13 | disposition home or self-care (01) | LOC: HO.MDS 11:12 | PROVIDERS: Visit Provider Internal Medicine Pulmonary Disease | DX: J45.50 Severe persistent asthma, uncomplicated (principal) | CPT/HCPCS: 96372; J2357 ==

== ENCOUNTER 2023-01-25 11:42 | Outpatient (REF) | payer OTHER, SELFPAY | END 2023-01-25 11:43 | disposition home or self-care (01) | LOC: HO.MDS 11:42 | PROVIDERS: Visit Provider Internal Medicine Pulmonary Disease | DX: J45.50 Severe persistent asthma, uncomplicated (principal) | CPT/HCPCS: 96372; J2357 ==

== ENCOUNTER 2023-02-17 09:49 | Outpatient (REF) | payer OTHER, SELFPAY ==
[2023-02-17 11:30] LABS: Free T4 (Free Thyroxine) 1.21 ng/dL (0.71-1.85)
[2023-02-22 04:23] LABS: Thyroglobulin Antibody <1 IU/mL (<=1); Thyroglobulin Level <0.1 ng/mL
== END 2023-02-17 09:50 | disposition home or self-care (01) ==
LOC: HO.LAB 09:49
PROVIDERS: PCP Internal Medicine; Visit Provider Internal Medicine
DX: Z85.850 Personal history of malignant neoplasm of thyroid (principal)
CPT/HCPCS: 36415; 84432; 84439; 84443; 86800

== ENCOUNTER 2023-02-18 12:34 | Outpatient (AMB) | payer OTHER, SELFPAY ==
[2023-02-18 13:03] VITALS: BP 110/60; PULSE 100; O2SAT 97; BMI 52.6
--- NOTE | 2023-02-18 13:03 | A.OFFVIS_ITS ---
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 she also reports fh/o MS in her mother is worried about it. Her migraines became noticeable about 4 years ago and has become frequent and intense in the past 4 months. The migraines are bitemporal and right retroorbital throbbing pain , associated with nausea, photophobia, phonophobia, vomiting,blurry vision, watery eyes, eye twitching etc. she denies any visual aura or sensory aura.It can last 4-5 hrs. she has 4-5 migraines a week. Bright lights and loud noise makes it worse. she takes some OTC meds but does not help. she has sleep issues, loud snoring, gasping arousals and excessive daytime sleepiness.Her home sleep test in 2021 was inconclusive she also reports speech issues, some word finding difficulties for past 6 mths . she also reports feeling off balance when she is walking. she reports memory issues. she gained 120 lbs for past 2 years. H/o heavy alcohol use for over 8 years [facility] Medical History (Updated 02/18/23 @ 13:53 by Miranda Zacarias MD) Morbid obesity Hypersomnia Loud snoring Blurry vision, bilateral Chronic migraine without aura PTSD (post-traumatic stress disorder) Bipolar depression Depression Morbid obesity with BMI of 45.0-49.9, adult Migraine Bilateral foot pain Fibromyalgia History of thyroid cancer Smoker Papillary thyroid carcinoma Post-surgical hypothyroidism Bilateral lower extremity edema Elevated LFTs Anxiety Asthma Hypothyroidism Cervical lymphadenopathy Vitamin D deficiency Thyroid cancer Surgical History History of surgery Hx of lymph node biopsy Hx of total thyroidectomy (~05/2020) Hx of section Hx of cholecystectomy Family History Father Diabetes Asthma Hypertension Mother Diabetes Hypertension Multiple sclerosis Daughter No problems noted. Daughter No problems noted. Daughter No problems noted. Daughter Deaf Asthma Daughter Deaf Son No problems noted. Son Asthma Son No problems noted. Social History Household Members: Family Household Members Other:: is recenlty - has 8 children_(8-18) Housing: Apartment Alcohol intake: former Patient Tobacco Use Status: Former Tobacco user Quit Date: 01/05/22 Tobacco use type: Cigarette Years Smoked: 20 years e-Cigarette/Vaping Use: Never Used Second Hand Smoke Exposure: Yes service: No Current occupational status: unemployed Current occupational exposures/hazards: No Cognitive needs: No Hearing needs: No Vision needs: No Female Reproductive History Menstrual Age of Menarche: 12 Review of Systems Const Reports body aches (diffuse), Denies chills, Reports fatigue (increasing), Denies fever(s), Reports headache(s) (recurrent) and Denies malaise Eyes Details: (+) sees dark shadows at the edge of her vision on and off lately ENT Denies dysphagia, Denies dizziness, Denies otalgia, Reports headache(s) (recurrent) and Denies sore throat Card Denies chest pain, Denies rapid heart rate and Reports dyspnea on exertion (mild) Resp Denies chest congestion, Reports cough (on and off), Reports dyspnea on exertion (mild) and Reports wheezing (at times, when her asthma flares up) GI Denies abdominal pain, Denies constipation, Denies dysphagia, Reports heartburn, Denies diarrhea, Denies nausea and Denies vomiting Details: (+) urinary frequency Reports nocturia and Denies dysuria Musc Reports back pain (diffuse), Reports myalgias (increased lately), Reports arthralgias (on and off), Reports muscle weakness and Reports tingling (on and off over the bottom of both feet) Skin/Breast Denies rash Neuro Denies dizziness, Reports headache(s) (recurrent) and Reports tingling (on and off over the bottom of both feet) Psych Reports anxiety (increasing) and Reports depression Endo Reports fatigue (increasing) Parish/Lymph Denies easy bruising Aller/Immun Denies seasonal rhinorrhea and Reports wheezing (at times, when her asthma flares up) Physical Exam Vital Signs: Last Vital Signs Pulse 100 02/18/23 13:03 BP 110/60 02/18/23 13:03 Pulse Ox 97 02/18/23 13:03 Oxygen Delivery Method Room Air 02/18/23 13:03 BMI result Body Mass Index 52.6 Const General: cooperative and no acute distress Nutritional Appearance: obese Orientation/consciousness: patient oriented x3 Eyes Pupils: Equal, round and reactive pupils present Neuro Other: mallampatti grade 4 Mild postural tremors General: patient oriented x3, tone normal and moves all extremities Cranial nerves: Yes Facial sensation intact/muscles of mastication intact, Yes Equal, round and reactive pupils present, Yes Bilaterally intact EOM present, Yes Nystagmus not present and Yes Normal facial strength present Cognition (Neuro): normal cognition Gait exam (Neuro): Antalgic gait present Motor exam (neuro): 5/5 motor strength present throughout and Normal motor muscle tone present throughout Deep tendon reflexes (DTR's): Right triceps reflex intensity grade: 1+, Left triceps reflex intensity grade: 1+, Rt Biceps (C5, C6): 1+, Left biceps reflex intensity grade: 1+, Right brachioradialis reflex intensity grade: 1+, Left brachioradialis reflex intensity grade: 1+, Right patellar reflex intensity grade: 1+ and Left patellar reflex intensity grade: 1+ Coordination: [id number] test normal Assessment & Plan Assessment & Plan (1) Chronic migraine without aura: Comment: ? Intracranial hypertension Code(s): G43.709 - Chronic migraine without aura, not intractable, without status migrainosus (2) Blurry vision, bilateral: Code(s): H53.8 - Other visual disturbances (3) Hypersomnia: Code(s): G47.10 - Hypersomnia, unspecified (4) Loud snoring: Code(s): R06.83 - Snoring (5) Speech impediment: Code(s): R47.9 - Unspecified speech disturbances Plan I will evaluate her with MRI brain -will consider LP for opening pressure In lab sleep study for further evaluation - home sleep test is inconclusive Will increase her topiramate to 50mg bid Opthal eval for VF testing Orders: Orders MR head/brain wo con Today G43.709 - Chronic migraine without aura, not intractable, without status migrainosus, H53.8 - Other visual disturbances, H53.9 - Unspecified visual disturbance, R47.9 - Unspecified speech disturbances RT PSG in-lab sleep study Today E66.01 - Morbid (severe) obesity due to excess calories, G47.10 - Hypersomnia, unspecified, R06.81 - Apnea, not elsewhere classified, R06.83 - Snoring Medications: Changed From topiramate 50 mg PO BEDTIME 30 days 30 tabs 3RF To topiramate 50 mg PO BID 30 days 60 tabs 3RF Coding Level of Care Code New Pt Level 4 (48993) Diagnoses Chronic migraine without aura G43.709 Blurry vision, bilateral H53.8 Hypersomnia G47.10 Loud snoring R06.83 Speech impediment R47.9
== END 2023-02-18 13:53 | disposition home or self-care (01) ==
PROVIDERS: Visit Provider Psychiatry & Neurology Neurology
DX: G43.709 Chronic migraine without aura, not intractable, without status migrainosus (principal); H53.8 Other visual disturbances; G47.10 Hypersomnia, unspecified; R06.83 Snoring; R47.9 Unspecified speech disturbances
CPT/HCPCS: 99204

== ENCOUNTER → 2023-02-18 12:34 | Outpatient (BNVA) | payer OTHER, SELFPAY | PROVIDERS: Visit Provider Psychiatry & Neurology Neurology ==

== ENCOUNTER 2023-02-23 12:36 | Outpatient (AMB) | payer OTHER, SELFPAY ==
--- NOTE | 2023-02-23 12:52 | A.OFFVIS_ITS ---
Intake Vital Signs 02/23/23 12:53 Height 5 ft 3 in Weight 297 lb 9.985 oz BMI 52.7 BP 132/78 Blood Pressure Location Rt brachial Pulse 112 H Pulse Source Palpation Temp 98.2 F Temp Source Skin Intake Visit Reasons: FM Intake Note: New pt presents today for FM consult. C/o generalized pain that started approx 3 years ago. 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 Accompanied by: Self / Same As Patient Allergies morphine [MORPHINE] Allergy (Intermediate, Verified 02/23/23 12:55) WBC ELEVATED/ N/V shellfish derived [SHELLFISH DERIVED] Allergy (Intermediate, Verified 02/23/23 12:55) HIVES iodine [IODINE] Allergy (Mild, Verified 02/23/23 12:55) RASH duloxetine Adverse Reaction (Intermediate, Verified 02/23/23 12:55) vomiting Medication List - Last Reconciled 02/23/23 by Daniela Bartlett MD bupropion HCl 300 mg PO QAM 30 days tiibajglcv-oelsqgykignul-xeli 50-325-40 mg 1 tab PO Q6-8H PRN 30 days clonazepam (Klonopin) 1 mg PO DAILY fluoxetine 20 mg PO DAILY 30 days gabapentin 800 mg PO QID 30 days hydroxyzine HCl 50 mg PO TID PRN 30 days ipratropium-albuterol 0.5 mg-3 mg(2.5 mg base)/3 mL 3 mL inhalation Q4-6H PRN 30 days levothyroxine 150 mcg PO DAILY 90 days mecobalamin (vitamin B12) 1,000 mcg sublingual DAILY [NEBULIZER Use as directed as needed] omalizumab (Xolair) 300 mg subcut Q2W 28 days omeprazole 20 mg PO DAILY 30 days tizanidine 4 mg PO TID PRN 30 days topiramate 50 mg PO BID 30 days Ventolin HFA 90 mcg/actuation (albuterol sulfate) 2 puffs inhalation Q4-6H PRN NS HPI HPI Comments History of Present Illness Details This is 37-year-old female who is referred for evaluation of fibromyalgia. Patient stated that it started about 3 years ago when she started having diffuse pain, tingling and numbness in multiple areas. 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 She states that her PCP asked her to stop working. States that she gained 120 lb over the last year due to worsening depression. States that she had a sleep study before but she is going for a repeat study soon. She is on Lyrica a few months ago, it was not helpful. She is currently on gabapentin 800 mg 4 times a day. Her mother has MS and she was recently evaluated by a neurologist. A brain MRI is pending [facility] Medical History Morbid obesity Hypersomnia Loud snoring Blurry vision, bilateral Chronic migraine without aura PTSD (post-traumatic stress disorder) Bipolar depression Depression Morbid obesity with BMI of 45.0-49.9, adult Migraine Bilateral foot pain Fibromyalgia History of thyroid cancer Smoker Papillary thyroid carcinoma Post-surgical hypothyroidism Bilateral lower extremity edema Elevated LFTs Anxiety Asthma Hypothyroidism Cervical lymphadenopathy Vitamin D deficiency Thyroid cancer Surgical History History of surgery Hx of lymph node biopsy Hx of total thyroidectomy (~05/2020) Hx of section Hx of cholecystectomy Family History Father Diabetes Asthma Hypertension Mother Diabetes Hypertension Multiple sclerosis Daughter No problems noted. Daughter No problems noted. Daughter No problems noted. Daughter Deaf Asthma Daughter Deaf Son No problems noted. Son Asthma Son No problems noted. Social History Household Members: Family Household Members Other:: is recenlty - has 8 children_(8-18) Housing: Apartment Alcohol intake: former Patient Tobacco Use Status: Former Tobacco user Quit Date: 01/05/22 Tobacco use type: Cigarette Years Smoked: 20 years e-Cigarette/Vaping Use: Never Used Second Hand Smoke Exposure: Yes service: No Current occupational status: unemployed Current occupational exposures/hazards: No Cognitive needs: No Hearing needs: No Vision needs: No Female Reproductive History Menstrual Age of Menarche: 12 Total pregnancies: 10 Number of Living Children: 8 Ab spontaneous: 2 Review of Systems Const Reports fatigue, Reports headache(s), Reports weakness and Reports weight gain Eyes Reports diplopia and Reports itchy eyes ENT Details: runny nose Reports dysphagia, Reports dizziness and Reports headache(s) Card Reports chest pain, Reports irregular heart rhythm and Reports dyspnea Resp Reports cough, Reports dyspnea and Reports wheezing GI Details: nausea Reports dysphagia, Reports heartburn and Reports nausea Skin/Breast Reports pruritus and Reports unusual bruising Neuro Reports dizziness, Reports headache(s), Reports memory loss and Reports weakness Psych Reports abnormal sleep pattern, Reports anxiety, Reports depression and Reports memory loss Endo Reports fatigue Aller/Immun Reports itchy eyes and Reports wheezing Physical Exam Vital Signs: Last Vital Signs Temp 98.2 F 02/23/23 12:53 Pulse 112 H 02/23/23 12:53 BP 132/78 02/23/23 12:53 BMI result Body Mass Index 52.7 Const General: cooperative, healthy appearing, comfortable and no acute distress Nutritional Appearance: obese morbidly obese Orientation/consciousness: patient oriented x3 Limitations: no limitations HEENT Head: Yes normocephalic and Yes atraumatic Mouth: moist mucous membranes Resp Effort & Inspection: normal respiratory effort and able to speak in complete sentences Auscultation: clear to auscultation bilaterally Cardio Rate: regular rate Skin General skin exam: no rashes or lesions noted Neuro General: patient oriented x3 Extrem Other: No active synovitis Diffuse fibromyalgia tender points Proximal muscle drinks 5/5 all 4 extremities Normal nailfold capillaroscopy Assessment & Plan Assessment & Plan (1) Fibromyalgia: Code(s): M79.7 - Fibromyalgia Plan: This is a 37-year-old female who presents for evaluation of fibromyalgia. I do not see any evidence of autoimmune rheumatic disease. Discussed management of fibromyalgia with patient. Is a noninflammatory, non- autoimmune central afferent processing disorder leading to a diffuse pain syndrome. I suggested that patient try to address her underlying psychiatric issues, anxiety/depression/PTSD. For she follows up regularly with a therapist I suggested evaluation by a psychiatrist as well. She is due for a repeat sleep study soon. Try to follow sleep hygiene practices. Patient would benefit from increased physical activity Consider low-impact exercises such as walking, swimming, aqua therapy stretching. Patient failed/was intolerant to Lyrica. She is currently on gabapentin 800 mg q.i.d.. Follow-up with PCP Follow-up with me as needed Patient was evaluated by a neurologist and scheduled for a brain MRI. Her mother has MS. Plan I spent 30 minutes reviewing patient's chart, evaluating patient, counseling patient and documenting in the chart Coding Level of Care Code New Pt Level 3 (62266) Diagnoses Fibromyalgia M79.7
[2023-02-23 12:53] VITALS: BP 132/78; PULSE 112; TEMP 36.8; BMI 52.7
== END 2023-02-23 13:59 | disposition home or self-care (01) ==
PROVIDERS: PCP Internal Medicine; Visit Provider Student in an Organized Health Care Education/Training Program
DX: M79.7 Fibromyalgia (principal)
CPT/HCPCS: 99203

== ENCOUNTER → 2023-02-23 12:36 | Outpatient (BNVA) | payer OTHER, SELFPAY | PROVIDERS: PCP Internal Medicine; Visit Provider Student in an Organized Health Care Education/Training Program ==

== ENCOUNTER 2023-02-25 11:42 | Outpatient (REF) | payer OTHER, SELFPAY | END 2023-02-25 11:43 | disposition home or self-care (01) | LOC: HO.MDS 11:42 | PROVIDERS: Visit Provider Internal Medicine Pulmonary Disease | DX: J45.50 Severe persistent asthma, uncomplicated (principal) | CPT/HCPCS: 96372; J2357 ==

== ENCOUNTER 2023-02-25 12:13 | Outpatient (AMB) | payer OTHER, SELFPAY ==
[2023-02-25 12:32] VITALS: BP 118/68; PULSE 115; O2SAT 90; BMI 52.6
--- NOTE | 2023-02-25 12:32 | MHC.PC.OV ---
Vital Signs 02/25/23 12:32 Height 5 ft 3 in Weight 297 lb BMI 52.6 BP 118/68 Blood Pressure Location Lt brachial Position Sitting Pulse 115 H Pulse Source Pulse Oximeter Pulse Oximetry (%) 90 L Oxygen Delivery Method Room Air Intake Visit Reasons: annual exam Television Announcer Required: No Accompanied by: Self / Same As Patient Allergies morphine [MORPHINE] Allergy (Intermediate, Verified 02/25/23 13:32) WBC ELEVATED/ N/V shellfish derived [SHELLFISH DERIVED] Allergy (Intermediate, Verified 02/25/23 13:32) HIVES iodine [IODINE] Allergy (Mild, Verified 02/25/23 13:32) RASH duloxetine Adverse Reaction (Intermediate, Verified 02/25/23 13:32) vomiting Medication List - Last Reconciled 02/25/23 by Lavon Richardson MD bupropion HCl 300 mg PO QAM 30 days clhwkobguj-otjaxzdhovejb-ndqb 50-325-40 mg 1 tab PO Q6-8H PRN 30 days clonazepam (Klonopin) 1 mg PO DAILY fluoxetine 20 mg PO DAILY 30 days gabapentin 800 mg PO QID 30 days hydroxyzine HCl 50 mg PO TID PRN 30 days ipratropium-albuterol 0.5 mg-3 mg(2.5 mg base)/3 mL 3 mL inhalation Q4-6H PRN 30 days levothyroxine 150 mcg PO DAILY 90 days mecobalamin (vitamin B12) 1,000 mcg sublingual DAILY [NEBULIZER Use as directed as needed] omalizumab (Xolair) 300 mg subcut Q2W 28 days omeprazole 40 mg PO DAILY 30 days tizanidine 4 mg PO TID PRN 30 days topiramate 50 mg PO BID 30 days Ventolin HFA 90 mcg/actuation (albuterol sulfate) 2 puffs inhalation Q4-6H PRN NS Tobacco use date assessed: 02/25/23 Dental Screening Dental Screen Date: 02/25/23 Did you have a dental visit in the last 12 months?: Yes Did you have a dental problem in the last 6 months where you did not have access to dental care?: No Was dental information given to patient?: Patient has dentist HPI annual exam HPI Details Patient comes in today for her annual physical examination States that she has been experiencing on and off sharp epigastric pains since last night Notes that her epigastric pain felt worse when she ate and drank something earlier this morning States that she already had her gall bladder removed but her symptoms feel exactly the same as when she was having problems with her gall bladder She denies any nausea/vomiting and no change in bowel habits noted She denies any headaches or dizziness Denies any chest pains, no SOB - states that her asthma has been well-controlled ever since she started getting Xolair injections and just got her latest dose earlier this morning and [place] a [place] [facility] [place] She denies any acute urinary symptoms Would like to get a referral to go back to weight management - states that she is gaining weight again lately and has decided now to go back and follow up again with weight management at the hospital She had her mammogram done last year in 11/2021 - mammogram was negative and was recommended to repeat this at age 40 Her last pap smear was done in 08/2022 - normal; HPV negative [facility] Medical History Morbid obesity Hypersomnia Loud snoring Blurry vision, bilateral Chronic migraine without aura PTSD (post-traumatic stress disorder) Bipolar depression Depression Morbid obesity with BMI of 45.0-49.9, adult Migraine Bilateral foot pain Fibromyalgia History of thyroid cancer Smoker Papillary thyroid carcinoma Post-surgical hypothyroidism Bilateral lower extremity edema Elevated LFTs Anxiety Asthma Hypothyroidism Cervical lymphadenopathy Vitamin D deficiency Thyroid cancer Surgical History History of surgery Hx of lymph node biopsy Hx of total thyroidectomy (~05/2020) Hx of section Hx of cholecystectomy Family History Father Diabetes Asthma Hypertension Mother Diabetes Hypertension Multiple sclerosis Daughter No problems noted. Daughter No problems noted. Daughter No problems noted. Daughter Deaf Asthma Daughter Deaf Son No problems noted. Son Asthma Son No problems noted. Social History Household Members: Family Household Members Other:: is recenlty - has 8 children_(8-18) Housing: Apartment Alcohol intake: former Patient Tobacco Use Status: Former Tobacco user Quit Date: 01/05/22 Tobacco use type: Cigarette Years Smoked: 20 years e-Cigarette/Vaping Use: Never Used Second Hand Smoke Exposure: Yes service: No Current occupational status: unemployed Current occupational exposures/hazards: No Cognitive needs: No Hearing needs: No Vision needs: No Female Reproductive History Menstrual Age of Menarche: 12 Questionnaire PHQ-9 Over the last 2 weeks, how often have you been bothered by any of the following problems? 1. Little interest or pleasure in doing things: nearly every day 2. Feeling down, depressed, or hopeless: nearly every day 3. Trouble falling or staying asleep, or sleeping too much: nearly every day 4. Feeling tired or having little energy: more than half the days 5. Poor appetite or overeating: more than half the days 6. Feeling bad about yourself - or that you are a failure or have let yourself or your family down: more than half the days 7. Trouble concentrating on things, such as reading the newspaper or watching television: not at all 8. Moving or speaking so slowly that other people could have noticed. Or the opposite - being so fidgety or restless that you have been moving around a lot more than usual: not at all 9. Thoughts that you would be better off or of hurting yourself in some way: not at all Total score: 15 Depression Screening Interpretation: Positive Depression Screening Follow-up: Existing condition, In treatment and Community Mental Health Worker F/U 66822 - PHQ-9 Billing: Yes Source: Developed by Drs. Alexander Avila, Shirlene Travis, Valdemar Cruz and colleagues, with an educational dilma from [employer]. Thrive Questionnaire Date Thrive assessed: 02/25/23 I am a: Patient What is your living situation today?: I have a steady place to live Within the past 12 months, did the food you bought not last and you didn't have the money to get more?: Never true Within the past 12 months, did you worry whether your food would run out before you got money to buy more?: Never true Do you have trouble paying for medicines?: No Do you have trouble getting transportation to medical appointments?: No Do you have trouble paying your heating and electricity bill?: No Do you have trouble taking care of your child, family member or friend?: No Do you have trouble with day-to-day activities such as bathing, preparing meals, shopping, managing finances, etc.?: No Are you currently unemployed and looking for a job?: No Are you interested in more education?: No Please select the resources that you would like help with: None Currently or been in a relationship where the following occur: no concerns reported AUDIT C Alcohol Use Questionnaire (AUDIT-C) 1. How often do you have a drink containing alcohol?: Never 3. How often do you have six or more drinks on one occasion?: Never Total Score: 0 Score Reviewed/Action Taken: Yes RUSSELL-7 AMB Questionnaire RUSSELL-7 Date RUSSELL - 7 assessed: 02/25/23 Feeling nervous, anxious, or on edge: 3 = Nearly every day Not being able to stop or control worryin = Nearly every day Worrying too much about different things: 3 = Nearly every day Trouble relaxin = Nearly every day Being so restless that it is hard to sit still: 2 = More than half the days Becoming easily annoyed or irritable: 0 = Not at all Feeling afraid as if something awful might happen: 0 = Not at all Total RUSSELL-7 score (0-4 normal; 5-9 mild; 10-14 moderate; 15-21 severe): 14 Source: Developed by Drs. Alexander Avila, Shirlene Travis, Valdemar Cruz and colleagues, with an educational dilma from [employer]. Review of Systems Const Denies chills, Reports fatigue, Denies fever(s), Denies headache(s) and Denies malaise Eyes Denies blurry vision, Denies change in vision, Denies irritation and Denies itchy eyes ENT Denies dysphagia, Denies dizziness, Denies otalgia, Denies headache(s), Denies nasal congestion, Denies neck pain, Denies odynophagia, Denies tinnitus (but she continues to hear the beating sound in her right ear frequently), Denies sinus pain and Denies sore throat Card Denies chest pain, Denies rapid heart rate, Denies irregular heart rhythm, Denies palpitations and Denies dyspnea Resp Denies chest congestion, Denies cough, Denies dyspnea and Denies wheezing GI Reports abdominal pain (epigastric - see HPI), Denies constipation, Denies dysphagia, Denies heartburn, Denies diarrhea, Denies nausea, Denies odynophagia and Denies vomiting Denies hematuria, Denies urinary frequency, Denies dysuria, Denies urinary incontinence and Denies urinary urgency Musc Reports back pain, Reports myalgias (diffuse), Denies arthralgias, Denies joint swelling, Denies muscle weakness and Denies neck pain Skin/Breast Denies breast pain, Denies breast mass, Denies change in pigmentation, Denies lesions, Denies rash and Denies unusual bruising Neuro Denies dizziness, Denies headache(s) and Denies paresthesias Psych Denies anxiety and Denies depression Endo Reports fatigue and Denies palpitations Parish/Lymph Denies easy bruising Aller/Immun Denies itchy eyes and Denies wheezing Physical exam (Primary Care) Vital Signs: Last Vital Signs Pulse 115 H 02/25/23 12:32 BP 118/68 02/25/23 12:32 Pulse Ox 90 L 02/25/23 12:32 Oxygen Delivery Method Room Air 02/25/23 12:32 BMI result Body Mass Index 52.6 Tobacco/Smoking Status: Tobacco use Status Tobacco use date assessed 02/25/23 02/25/23 12:39 Patient Tobacco Use Status Former Tobacco user 02/25/23 12:39 Tobacco use type Cigarette 02/25/23 12:39 e-Cigarette/Vaping Use Never Used 02/25/23 12:39 PHQ-9: PHQ-9 Score PHQ-9: Total score 15 02/25/23 12:39 Depression Screening Interpretation: Positive Depression Screening Follow-up: Existing condition, In treatment and Community Mental Health Worker F/U Thrive Assessment: Date of Thrive Assessment Date Thrive assessed 02/25/23 02/25/23 12:39 Currently or been in a relationship where the following occur: no concerns reported Const General: no acute distress, alert and awake Orientation/consciousness: patient oriented x3 HENMT Head: Yes normocephalic and Yes atraumatic Ears: external ears normal, TM's normal bilaterally and EAC's normal General nose exam: No nasal discharge present Face and sinus: Yes normal facial exam and Yes sinuses nontender Teeth and gingiva: dentition normal Throat: Yes posterior oropharynx normal and Yes tonsils normal (no TP congestion) Eyes Eyelids: Yes eyelids normal Conjunctivae: conjunctivae normal Pupils: Equal, round and reactive pupils present EOM: EOMs intact bilaterally Neck Neck: Yes no lymphadenopathy and Yes supple Thyroid: Thyroid normal Resp Auscultation: clear to auscultation bilaterally, no rales and no wheezes Cardio Rate: regular rate Rhythm: regular rhythm Heart sounds: no murmurs GI Palpation (GI): Soft to palpation, Tenderness to palpation present (GI) in the epigastrum, no guarding, not rigid, No hepatosplenomegaly present and No Rebound tenderness present Auscultation: normal bowel sounds General: Yes no CVA tenderness Back/Spine/Pelvis Back: no CVA tenderness Thoracic/Lumbar Spine: lumbar spinal tenderness Skin Lesions: no lesions Rashes: no rashes Neuro General: patient oriented x3, moves all extremities, no focal motor deficits and CN's II-XI intact bilaterally Cranial nerves: Yes Equal, round and reactive pupils present Cognition (Neuro): normal cognition Gait exam (Neuro): Normal gait present Extrem General: Yes no clubbing, cyanosis or edema Assessment and Plan Assessment & Plan (1) Annual physical exam: Code(s): Z00.00 - Encounter for general adult medical examination without abnormal findings Plan: Check labs She is not due for screening mammogram until age 40; had one done last year (2021) due to breast pain - mammogram was normal She is up-to-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 with 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 and pap smear (2) Asthma: Code(s): J45.909 - Unspecified asthma, uncomplicated Qualifiers: Asthma severity: moderate Asthma persistence: persistent Asthma complication type: uncomplicated Qualified Code(s): J45.40 - Moderate persistent asthma, uncomplicated Plan: Continue Advair HFA 115-21 mcg 2 inhalations BID and Albuterol HFA 2 inhalations every 6 hours as needed Is still on Xolair injection 300 mg SQ every 2 weeks by pulmonary - follow up with pulmonary as scheduled (3) Fibromyalgia: Code(s): M79.7 - Fibromyalgia Plan: Is currently still on Gabapentin 800 mg TID and Tizanidine 4 mg TID PRN We recently tried switching her Gabapentin over to Pregabalin but this was denied by insurance She was also seen by rheumatology recently and advised to continue on current Rx and to follow up as needed (4) GERD (gastroesophageal reflux disease): Code(s): K21.9 - Gastro-esophageal reflux disease without esophagitis Qualifiers: Esophagitis presence: without esophagitis Qualified Code(s): K21.9 - Gastro-esophageal reflux disease without esophagitis Plan: Reinforced dietary restrictions Upper GI series done a few months ago revealed (+) large gastroesophageal reflux into the pharynx. No hiatal hernia seen Her recent epigastric pain may be due to gastritis Will increase her Omeprazole to 40 mg QD; is advised to call if her symptoms do not improve in 2 to 3 weeks and we may need to send her for some imaging studies (like UGI) then for further evaluation (5) Post-surgical hypothyroidism: Code(s): E89.0 - Postprocedural hypothyroidism Plan: Continue Levothyroxine 175 mcg QD She had TFTs done last week that came out normal Follow up with endocrinology as scheduled (6) Papillary thyroid carcinoma: Comment: S/P total thyroidectomy by Dr. Cosme in May 2020 Code(s): C73 - Malignant neoplasm of thyroid gland Plan: Follow up with endocrinology as scheduled for continuing surveillance (7) Vitamin D deficiency: Code(s): E55.9 - Vitamin D deficiency, unspecified Plan: Continue Vitamin D3 2000 units QD and 5000 units once a week Will recheck her Vitamin D level for follow up (8) Migraine: Code(s): G43.909 - Migraine, unspecified, not intractable, without status migrainosus Qualifiers: Migraine type: unspecified Status migrainosus presence: without status migrainosus Intractability: not intractable Qualified Code(s): G43.909 - Migraine, unspecified, not intractable, without status migrainosus Plan: Stable/controlled on prophylactic Tx with Topiramate 25 mg Q HS Continue Fioricet 50-325-40 mg PRN Follow up with neurology as scheduled - she is also apparently being worked up for possible MS due to her family Hx (9) Anxiety: Code(s): F41.9 - Anxiety disorder, unspecified Plan: Continue Clonazepam 1 mg QD PRN and Hydroxyzine 50 mg TID PRN Continue Fluoxetine 20 mg QD (10) Depression: Code(s): F32.A - Depression, unspecified Qualifiers: Depression Type: major depressive disorder Major depression recurrence: recurrent Active/Remission status: currently active Major depression episode severity: unspecified Qualified Code(s): F33.9 - Major depressive disorder, recurrent, unspecified Plan: Continue Bupropion 300 mg Q AM and Fluoxetine 20 mg QD She is on Topiramate 25 mg Q HS for her migraine - advised that this can also help as a mood stabilizer Follow up with psychiatry as scheduled (11) Morbid obesity with BMI of 45.0-49.9, adult: Code(s): E66.01 - Morbid (severe) obesity due to excess calories; Z68.42 - Body mass index [BMI] 45.0-49.9, adult Plan: Reinforced diet/exercise as tolerated/lose weight She has not decided to go back and follow up with weight management again and is requesting for a referral - referral done Plan Follow up in 4 months Orders: Orders Vitamin B12 and Folate Today E53.8 - Deficiency of other specified B group vitamins, Z00.00 - Encounter for general adult medical examination without abnormal findings Complete Blood Count Auto Diff Today Z00.00 - Encounter for general adult medical examination without abnormal findings Lipid Panel Today E78.00 - Pure hypercholesterolemia, unspecified, Z00.00 - Encounter for general adult medical examination without abnormal findings Comprehensive [place]. Panel Fast Today E78.00 - Pure hypercholesterolemia, unspecified, Z00.00 - Encounter for general adult medical examination without abnormal findings UA CC w/rflx Micro + Cult Today R30.0 - Dysuria, Z00.00 - Encounter for general adult medical examination without abnormal findings Vitamin D 25-OH Total Today E55.9 - Vitamin D deficiency, unspecified, Z00.00 - Encounter for general adult medical examination without abnormal findings Referrals Medical Weight Management Referral E66.01 - Morbid (severe) obesity due to excess calories, Z68.42 - Body mass index [BMI] 45.0-49.9, adult Medications: Changed From omeprazole 20 mg PO DAILY 30 days 90 caps 3RF To omeprazole 40 mg PO DAILY 30 days 30 caps 3RF Coding Level of Care Code Est Pt Prev Care 18-39y(99067) Diagnoses Annual physical exam Z00.00 Moderate persistent asthma without complication J45.40 Asthma severity: moderate Asthma persistence: persistent Asthma complication type: uncomplicated Fibromyalgia M79.7 Gastroesophageal reflux disease without esophagitis K21.9 Esophagitis presence: without esophagitis Post-surgical hypothyroidism E89.0 Papillary thyroid carcinoma C73 Vitamin D deficiency E55.9 Migraine without status migrainosus, not intractable, unspecified migraine type G43.909 Migraine type: unspecified Status migrainosus presence: without status migrainosus Intractability: not intractable Anxiety F41.9 Episode of recurrent major depressive disorder, unspecified depression episode severity F33.9 Depression Type: major depressive disorder Major depression recurrence: recurrent Active/Remission status: currently active Major depression episode severity: unspecified Morbid obesity with BMI of 45.0-49.9, adult E66.01; Z68.42
== END 2023-02-25 13:02 | disposition home or self-care (01) ==
PROVIDERS: PCP Internal Medicine; Visit Provider Internal Medicine
DX: Z00.00 Encounter for general adult medical examination without abnormal findings (principal); E55.9 Vitamin D deficiency, unspecified; F41.9 Anxiety disorder, unspecified; G43.909 Migraine, unspecified, not intractable, without status migrainosus; J45.40 Moderate persistent asthma, uncomplicated; K21.9 Gastro-esophageal reflux disease without esophagitis; C73 Malignant neoplasm of thyroid gland; M79.7 Fibromyalgia; E66.01 Morbid (severe) obesity due to excess calories; E89.0 Postprocedural hypothyroidism; Z68.42 Body mass index [BMI] 45.0-49.9, adult; F33.9 Major depressive disorder, recurrent, unspecified
CPT/HCPCS: 99395

== ENCOUNTER 2023-02-25 13:11 | Outpatient (REF) | payer OTHER, SELFPAY ==
[2023-02-25 13:31] LABS: MANUAL DIFF FLAG NO
[2023-02-25 14:01] LABS: Basophils Absolute Auto 0.1 X10*3/uL (0.0-0.2); Basophils Percent Auto 0.4 % (0-2); Eosinophils Absolute Auto 0.5 X10*3/uL (0.0-0.4); Hematocrit 35.6 % (37.0-47.0); Hemoglobin 11.3 g/dl (12.0-16.0); Imm Gran Abs Auto 0.05 X10*3/uL (0.00-0.03); Imm Gran Pct Auto 0.4 % (0.0-0.4); Lymphocytes Absolute Auto 4.2 X10*3/uL (1.2-4.9); Lymphocytes Percent Auto 34.5 % (20-40); Mean Corpuscular HGB Conc 31.7 g/dl (31.0-35.0); Mean Corpuscular Hemoglobin 27.4 pg (27.0-33.0); Mean Corpuscular Volume 86.4 fL (80.0-98.0); Mean Platelet Volume 9.1 fL (9.4-12.3); Monocytes Absolute Auto 0.9 X10*3/uL (0.1-1.2); Monocytes Percent Auto 7.1 % (2-11); Neutrophils Absolute Auto 6.5 x10*3/uL (2.0-8.3); Neutrophils Percent Auto 53.6 % (45-73); Platelet Count 412 X10*3/uL (160-400); Red Blood Count 4.12 X10*6/uL (4.20-5.50); Red Cell Distribution Width 14.2 % (11.0-16.0)
[2023-02-25 14:35] LABS: Alanine Aminotransferase 46 U/L (0-31); Albumin Level 3.8 g/dL (3.5-5.0); Alkaline Phosphatase 85 U/L (39-117); Anion Gap 13 (12-20); Aspartate Amino Transferase 32 U/L (5-31); Bilirubin Total 0.2 mg/dL (0.0-1.0); Blood Urea Nitrogen 14 mg/dL (9-16); Calcium 9.1 mg/dL (8.4-10.2); Carbon Dioxide 20 mmol/L (22-29); Chloride 109 mmol/L (96-108); Cholesterol 151 mg/dL (<200); Estimated Glomerular Filt Rate > 60; Glucose Fasting 85 mg/dL (60-99); HDL Cholesterol 45 mg/dL (>40); LDL Cholesterol Calculated 83 mg/dL (<100); Potassium 4.1 mmol/L (3.3-5.1); Sodium 138 mmol/L (135-145); Total Protein 7.8 g/dL (6.5-8.0); Triglycerides 116 mg/dL (<150)
[2023-02-25 14:52] LABS: Vitamin D 25-OH Total 24.9 ng/mL (>30)
[2023-02-25 15:09] LABS: Folate 11.2 ng/mL (> or = 4.0); Vitamin B12 410 pg/mL (200-900)
[2023-02-25 15:37] LABS: Appearance Urine Clear; Color Urine Yellow; Glucose Urine UA Negative (Negative); Leukocyte Esterase Urine Small (1+) (Negative); Nitrite Urine Negative (Negative); UMIC TRIGGER UACC YES; Urine Blood Negative (Negative); Urine Ketones Negative (Negative); Urine Protein Negative (Neg-Trace)
[2023-02-25 16:28] LABS: Bacteria Urine 3+ (None Seen); Hyaline Casts Urine 0-2 /LPF (0-2); UACC Culture Trigger YES
== END 2023-02-25 13:12 | disposition home or self-care (01) ==
LOC: HO.LAB 13:11
PROVIDERS: PCP Internal Medicine; Visit Provider Internal Medicine
DX: Z00.00 Encounter for general adult medical examination without abnormal findings (principal); E53.8 Deficiency of other specified B group vitamins; E78.00 Pure hypercholesterolemia, unspecified; E55.9 Vitamin D deficiency, unspecified; R30.0 Dysuria
CPT/HCPCS: 36415; 80053; 80061; 81001; 82306; 82607; 82746; 85025; 87086

== ENCOUNTER 2023-03-24 12:02 | Outpatient (REF) | payer OTHER, SELFPAY ==
--- NOTE | ~2023-03-24 | MR_ITS ---
EXAMINATION: MR BRAIN WITHOUT CONTRAST CLINICAL INFORMATION: Unspecified speech disturbances; migraines, vision abnormalities COMPARISON: None TECHNIQUE: Multiplanar multisequence MR imaging of the brain was obtained without intravenous contrast. FINDINGS: There is no acute infarct on diffusion-weighted imaging. There is no intracranial hemorrhage on iron-sensitive imaging. No extra-axial collection or mass effect/herniation. Normal parenchymal signal characteristics. No hydrocephalus. The ventricles are normal in morphology and size. The major flow voids at the skull base are preserved. The midline structures are normal. The cerebellar tonsils are normally positioned. The craniocervical junction is normal. Marrow signal is within normal limits. The visualized soft tissues are without significant abnormality. Mild scattered paranasal sinus mucosal thickening. MR/MR head/brain wo con IMPRESSION: Unremarkable noncontrast MRI of the brain.
== END 2023-03-24 12:03 | disposition home or self-care (01) ==
LOC: HO.MRI 12:02
PROVIDERS: PCP Internal Medicine; Visit Provider Psychiatry & Neurology Neurology
DX: G43.709 Chronic migraine without aura, not intractable, without status migrainosus (principal); H53.8 Other visual disturbances; R47.9 Unspecified speech disturbances
CPT/HCPCS: 70551

== ENCOUNTER → 2023-03-25 20:30 | Outpatient (REF) | payer OTHER, SELFPAY | LOC: HO.SL 20:30 | PROVIDERS: PCP Internal Medicine; Visit Provider Psychiatry & Neurology Neurology | DX: G47.33 Obstructive sleep apnea (adult) (pediatric) (principal); E66.01 Morbid (severe) obesity due to excess calories; R06.83 Snoring; G47.10 Hypersomnia, unspecified | CPT/HCPCS: 95810 ==

== ENCOUNTER → 2023-03-26 00:28 | Outpatient (BNV) | payer OTHER, SELFPAY | PROVIDERS: PCP Internal Medicine; Visit Provider Psychiatry & Neurology Neurology | DX: G47.33 Obstructive sleep apnea (adult) (pediatric) (principal) | CPT/HCPCS: 95810 ==

== ENCOUNTER 2023-03-29 11:56 | Outpatient (REF) | payer OTHER, SELFPAY | END 2023-03-29 11:57 | disposition home or self-care (01) | LOC: HO.MDS 11:56 | PROVIDERS: Visit Provider Internal Medicine Pulmonary Disease | DX: J45.50 Severe persistent asthma, uncomplicated (principal) | CPT/HCPCS: 96372; J2357 ==

== ENCOUNTER 2023-04-13 11:17 | Outpatient (AMB) | payer OTHER, SELFPAY ==
--- NOTE | 2023-04-13 11:27 | MHC.OFFVIS ---
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 The brain MRI result reviewed. Unremarkable noncontrast MRI of the brain. The PSG sleep study result was mid degree of sleep apnea with increased severity in REM sleep. The AHI was 17/hr, REM AHI was 44/hr and oxygen [place] was 77%. Titration recommended. Pt reports that she has daily headache with throbbing pain on bitemporal and right retroorbital. She is on gabapentin 800 mg QID, and topiramate 50 mg BID, and also uses fioricet. It can last 4-5 hrs. she has 4-5 migraines a week. Bright lights and loud noise makes it worse. She gained 120 lbs for past 2 years. H/o heavy alcohol use for over 8 years [facility] Medical History Morbid obesity Hypersomnia Loud snoring Blurry vision, bilateral Chronic migraine without aura PTSD (post-traumatic stress disorder) Bipolar depression Depression Morbid obesity with BMI of 45.0-49.9, adult Migraine Bilateral foot pain Fibromyalgia History of thyroid cancer Smoker Papillary thyroid carcinoma Post-surgical hypothyroidism Bilateral lower extremity edema Elevated LFTs Anxiety Asthma Hypothyroidism Cervical lymphadenopathy Vitamin D deficiency Thyroid cancer Surgical History History of surgery Hx of lymph node biopsy Hx of total thyroidectomy (~05/2020) Hx of section Hx of cholecystectomy Family History Father Diabetes Asthma Hypertension Mother Diabetes Hypertension Multiple sclerosis Daughter No problems noted. Daughter No problems noted. Daughter No problems noted. Daughter Deaf Asthma Daughter Deaf Son No problems noted. Son Asthma Son No problems noted. Social History Household Members: Family Household Members Other:: is recenlty - has 8 children_(8-18) Housing: Apartment Alcohol intake: former Patient Tobacco Use Status: Former Tobacco user Quit Date: 01/05/22 Tobacco use type: Cigarette Years Smoked: 20 years e-Cigarette/Vaping Use: Never Used Second Hand Smoke Exposure: Yes service: No Current occupational status: unemployed Current occupational exposures/hazards: No Cognitive needs: No Hearing needs: No Vision needs: No Female Reproductive History Menstrual Age of Menarche: 12 Review of Systems Const All systems reviewed & are unremarkable except as noted in HPI and below Physical Exam Vital Signs: Last Vital Signs Pulse 98 04/13/23 11:29 BP 120/68 04/13/23 11:29 Pulse Ox 97 04/13/23 11:29 Oxygen Delivery Method Room Air 04/13/23 11:29 Const General: cooperative and no acute distress Nutritional Appearance: obese Orientation/consciousness: patient oriented x3 Eyes Pupils: Equal, round and reactive pupils present Neuro Other: mallampatti grade 4 Mild postural tremors General: patient oriented x3, tone normal and moves all extremities Cranial nerves: Yes Facial sensation intact/muscles of mastication intact, Yes Equal, round and reactive pupils present, Yes Bilaterally intact EOM present, Yes Nystagmus not present and Yes Normal facial strength present Cognition (Neuro): normal cognition Gait exam (Neuro): Antalgic gait present Motor exam (neuro): 5/5 motor strength present throughout and Normal motor muscle tone present throughout Deep tendon reflexes (DTR's): Right triceps reflex intensity grade: 1+, Left triceps reflex intensity grade: 1+, Rt Biceps (C5, C6): 1+, Left biceps reflex intensity grade: 1+, Right brachioradialis reflex intensity grade: 1+, Left brachioradialis reflex intensity grade: 1+, Right patellar reflex intensity grade: 1+ and Left patellar reflex intensity grade: 1+ Coordination: [id number] test normal Assessment & Plan Assessment & Plan (1) Chronic migraine without aura: Comment: ? Intracranial hypertension Code(s): G43.709 - Chronic migraine without aura, not intractable, without status migrainosus (2) Blurry vision, bilateral: Code(s): H53.8 - Other visual disturbances (3) Hypersomnia: Code(s): G47.10 - Hypersomnia, unspecified Plan Advised patient to undergo in lab titration study to find optimal CPAP pressure to treat her sleep apnea. Will start CPAP after the titration study done. Stressed CPAP compliance, use nightly and more than 4 hrs. Continue to take topiramate to 50mg bid. Coding Level of Care Code Est Pt Level 4 (63429) Diagnoses Chronic migraine without aura G43.709 Blurry vision, bilateral H53.8 Hypersomnia G47.10
[2023-04-13 11:29] VITALS: BP 120/68; PULSE 98; O2SAT 97
== END 2023-04-13 11:53 | disposition home or self-care (01) ==
PROVIDERS: PCP Internal Medicine; Visit Provider Nurse Practitioner Family
DX: G43.709 Chronic migraine without aura, not intractable, without status migrainosus (principal); H53.8 Other visual disturbances; G47.10 Hypersomnia, unspecified
CPT/HCPCS: 99214

== ENCOUNTER → 2023-04-13 11:17 | Outpatient (BNVA) | payer OTHER, SELFPAY | PROVIDERS: PCP Internal Medicine; Visit Provider Nurse Practitioner Family | DX: G43.709 Chronic migraine without aura, not intractable, without status migrainosus (principal); H53.8 Other visual disturbances; G47.10 Hypersomnia, unspecified | CPT/HCPCS: 99212 ==

== ENCOUNTER → 2023-05-13 19:30 | Outpatient (REF) | payer OTHER, SELFPAY | LOC: HO.SL 19:30 | PROVIDERS: PCP Internal Medicine; Visit Provider Nurse Practitioner Family | DX: G47.30 Sleep apnea, unspecified (principal) | CPT/HCPCS: 95811 ==

== ENCOUNTER → 2023-05-14 02:18 | Outpatient (BNV) | payer OTHER, SELFPAY | PROVIDERS: PCP Internal Medicine; Visit Provider Psychiatry & Neurology Neurology | DX: G47.33 Obstructive sleep apnea (adult) (pediatric) (principal) | CPT/HCPCS: 95811 ==

== ENCOUNTER 2023-06-27 12:56 | Outpatient (AMB) | payer OTHER, SELFPAY ==
[2023-06-27 13:07] VITALS: BP 110/88; PULSE 104; O2SAT 97; BMI 55.6
--- NOTE | 2023-06-27 13:07 | MHC.PC.OV ---
Vital Signs 06/27/23 13:07 Height 5 ft 3 in Weight 314 lb BMI 55.6 BP 110/88 Blood Pressure Location Lt brachial Position Sitting Pulse 104 H Pulse Source Pulse Oximeter Pulse Oximetry (%) 97 Oxygen Delivery Method Room Air Intake Visit Reasons: 4mth f/u Motion And Time Study Teacher Required: No Accompanied by: Self / Same As Patient Allergies morphine [MORPHINE] Allergy (Intermediate, Verified 06/27/23 13:19) WBC ELEVATED/ N/V shellfish derived [SHELLFISH DERIVED] Allergy (Intermediate, Verified 06/27/23 13:19) HIVES iodine [IODINE] Allergy (Mild, Verified 06/27/23 13:19) RASH duloxetine Adverse Reaction (Intermediate, Verified 06/27/23 13:19) vomiting Medication List - Last Reconciled 06/27/23 by Lavon Richardson MD bupropion HCl 300 mg PO QAM 30 days [id number]-bghyhwwtwudcm-ukei 50-325-40 mg 1 tab PO Q6-8H PRN 30 days clonazepam (Klonopin) 1 mg PO DAILY fluoxetine 20 mg PO DAILY 30 days gabapentin 800 mg PO QID 30 days hydroxyzine HCl 50 mg PO TID PRN 30 days ipratropium-albuterol 0.5 mg-3 mg(2.5 mg base)/3 mL 3 mL inhalation Q4-6H PRN 30 days levothyroxine 150 mcg PO DAILY 90 days mecobalamin (vitamin B12) 1,000 mcg sublingual DAILY [NEBULIZER Use as directed as needed] omalizumab (Xolair) 300 mg subcut Q2W 28 days omeprazole 40 mg PO DAILY 30 days tizanidine 4 mg PO TID PRN 30 days topiramate 50 mg PO BID 30 days Ventolin HFA 90 mcg/actuation (albuterol sulfate) 2 puffs inhalation Q4-6H PRN NS Tobacco use date assessed: 06/27/23 Dental Screening Dental Screen Date: 06/27/23 Did you have a dental visit in the last 12 months?: No Did you have a dental problem in the last 6 months where you did not have access to dental care?: No Was dental information given to patient?: Patient has dentist HPI 4mth f/u HPI Details Patient comes in today for her follow up visit States that she feels okay She recently started using her CPAP device and states that she is starting to sleep better with it now She denies any headaches or dizziness lately - is on Topiramate for headache prophylaxis Denies any chest pains, no SOB - her asthma remains well-controlled on her current Rx, including her Xolair injections No nausea/vomiting, no abdominal pain No change in bowel habits noted Needs a few of her Rx refilled She is also scheduled to start seeing weight management later this afternoon [facility] Medical History Morbid obesity Hypersomnia Loud snoring Blurry vision, bilateral Chronic migraine without aura PTSD (post-traumatic stress disorder) Bipolar depression Depression Morbid obesity with BMI of 45.0-49.9, adult Migraine Bilateral foot pain Fibromyalgia History of thyroid cancer Smoker Papillary thyroid carcinoma Post-surgical hypothyroidism Bilateral lower extremity edema Elevated LFTs Anxiety Asthma Hypothyroidism Cervical lymphadenopathy Vitamin D deficiency Thyroid cancer Surgical History History of surgery Hx of lymph node biopsy Hx of total thyroidectomy (~05/2020) Hx of section Hx of cholecystectomy Family History Father Diabetes Asthma Hypertension Mother Diabetes Hypertension Multiple sclerosis Daughter No problems noted. Daughter No problems noted. Daughter No problems noted. Daughter Deaf Asthma Daughter Deaf Son No problems noted. Son Asthma Son No problems noted. Social History Household Members: Family Household Members Other:: is recenlty - has 8 children_(8-18) Housing: Apartment Alcohol intake: former Patient Tobacco Use Status: Former Tobacco user Quit Date: 01/05/22 Tobacco use type: Cigarette Years Smoked: 20 years e-Cigarette/Vaping Use: Never Used Second Hand Smoke Exposure: Yes service: No Current occupational status: unemployed Current occupational exposures/hazards: No Cognitive needs: No Hearing needs: No Vision needs: No Female Reproductive History Menstrual Age of Menarche: 12 Questionnaire PHQ-9 Over the last 2 weeks, how often have you been bothered by any of the following problems? 1. Little interest or pleasure in doing things: nearly every day 2. Feeling down, depressed, or hopeless: nearly every day 3. Trouble falling or staying asleep, or sleeping too much: nearly every day 4. Feeling tired or having little energy: more than half the days 5. Poor appetite or overeating: more than half the days 6. Feeling bad about yourself - or that you are a failure or have let yourself or your family down: more than half the days 7. Trouble concentrating on things, such as reading the newspaper or watching television: not at all 8. Moving or speaking so slowly that other people could have noticed. Or the opposite - being so fidgety or restless that you have been moving around a lot more than usual: not at all 9. Thoughts that you would be better off or of hurting yourself in some way: not at all Total score: 15 Depression Screening Interpretation: Positive Depression Screening Follow-up: Existing condition, In treatment and Community Mental Health Worker F/U Depression Screening Done: Yes 75211 - PHQ-9 Billing: Yes Source: Developed by Drs. Alexander Avila, Shirlene Travis, Valdemar Cruz and colleagues, with an educational dilma from [employer]. Thrive Questionnaire Date Thrive assessed: 06/27/23 I am a: Patient What is your living situation today?: I have a steady place to live Within the past 12 months, did the food you bought not last and you didn't have the money to get more?: Never true Within the past 12 months, did you worry whether your food would run out before you got money to buy more?: Never true Do you have trouble paying for medicines?: No Do you have trouble getting transportation to medical appointments?: No Do you have trouble paying your heating and electricity bill?: No Do you have trouble taking care of your child, family member or friend?: No Do you have trouble with day-to-day activities such as bathing, preparing meals, shopping, managing finances, etc.?: No Are you currently unemployed and looking for a job?: No Are you interested in more education?: No Please select the resources that you would like help with: None Currently or been in a relationship where the following occur: no concerns reported THRIVE Score: 0 AUDIT C Alcohol Use Questionnaire (AUDIT-C) 1. How often do you have a drink containing alcohol?: Never 3. How often do you have six or more drinks on one occasion?: Never Total Score: 0 Score Reviewed/Action Taken: Yes RUSSELL-7 AMB Questionnaire RUSSELL-7 Date RUSSELL - 7 assessed: 06/27/23 Feeling nervous, anxious, or on edge: 3 = Nearly every day Not being able to stop or control worryin = Nearly every day Worrying too much about different things: 3 = Nearly every day Trouble relaxin = Nearly every day Being so restless that it is hard to sit still: 2 = More than half the days Becoming easily annoyed or irritable: 0 = Not at all Feeling afraid as if something awful might happen: 0 = Not at all Total RUSSELL-7 score (0-4 normal; 5-9 mild; 10-14 moderate; 15-21 severe): 14 Source: Developed by Drs. Alexander Avila, Shirlene Travis, Valdemar Cruz and colleagues, with an educational dilma from [employer]. Review of Systems Const Denies chills, Reports fatigue, Denies fever(s) and Denies headache(s) ENT Denies dysphagia, Denies dizziness, Denies otalgia, Denies headache(s), Denies neck pain, Denies odynophagia and Denies sore throat Card Denies chest pain, Denies rapid heart rate, Denies irregular heart rhythm, Denies palpitations and Denies dyspnea Resp Denies chest congestion, Denies cough, Denies dyspnea and Denies wheezing GI Denies abdominal pain, Denies constipation, Denies dysphagia, Denies heartburn, Denies diarrhea, Denies nausea, Denies odynophagia and Denies vomiting Denies hematuria, Denies urinary frequency, Denies dysuria, Denies urinary incontinence and Denies urinary urgency Musc Reports back pain (on and off), Reports myalgias (diffuse), Denies arthralgias and Denies neck pain Skin/Breast Denies rash Neuro Denies dizziness, Denies headache(s) and Denies paresthesias Psych Denies anxiety and Denies depression Endo Reports fatigue and Denies palpitations Parish/Lymph Denies easy bruising Aller/Immun Denies wheezing Physical exam (Primary Care) Vital Signs: Last Vital Signs Pulse 104 H 06/27/23 13:07 BP 110/88 06/27/23 13:07 Pulse Ox 97 06/27/23 13:07 Oxygen Delivery Method Room Air 06/27/23 13:07 BMI result Body Mass Index 55.6 Tobacco/Smoking Status: Tobacco use Status Tobacco use date assessed 06/27/23 06/27/23 13:15 Patient Tobacco Use Status Former Tobacco user 06/27/23 13:15 Tobacco use type Cigarette 06/27/23 13:15 e-Cigarette/Vaping Use Never Used 06/27/23 13:15 PHQ-9: PHQ-9 Score PHQ-9: Total score 15 06/27/23 13:15 Depression Screening Interpretation: Positive Depression Screening Follow-up: Existing condition, In treatment and Community Mental Health Worker F/U Thrive Assessment: Date of Thrive Assessment Date Thrive assessed 06/27/23 06/27/23 13:15 Currently or been in a relationship where the following occur: no concerns reported Const General: no acute distress and alert HENMT Ears: TM's normal bilaterally and EAC's normal Throat: Yes posterior oropharynx normal and Yes tonsils normal (no TP congestion) Neck Neck: Yes no lymphadenopathy and Yes supple Thyroid: Thyroid normal Resp Auscultation: clear to auscultation bilaterally, no rales and no wheezes Cardio Rate: regular rate Rhythm: regular rhythm Heart sounds: no murmurs GI Palpation (GI): Soft to palpation and nontender Auscultation: normal bowel sounds General: Yes no CVA tenderness Back/Spine/Pelvis Back: no CVA tenderness Thoracic/Lumbar Spine: lumbar spinal tenderness Skin Rashes: no rashes Extrem General: Yes no clubbing, cyanosis or edema Results Reviewed Results Reviewed: Laboratory Tests 02/17/23 02/25/23 02/25/23 10:07 13:25 13:29 WBC 12.0 H Hgb 11.3 L Hct 35.6 L Plt Count 412 H Sodium 138 Potassium 4.1 Creatinine 0.96 Estimated GFR > 60 Fasting Glucose 85 Calcium 9.1 AST 32 H ALT 46 H Triglycerides 116 Cholesterol 151 LDL Cholesterol, Calc HDL Cholesterol Vitamin B12 410 25-OH Vitamin D Total 24.9 TSH 0.60 Free T4 1.21 Thyroglobulin <0.1 Ur Specific Mitchell 1.020 Urine Protein Negative Urine Glucose (UA) Negative Urine Blood Negative 02/25/23 13:29 WBC Hgb Hct Plt Count Sodium Potassium Creatinine Estimated GFR Fasting Glucose Calcium AST ALT Triglycerides Cholesterol LDL Cholesterol, Calc 83 HDL Cholesterol 45 Vitamin B12 25-OH Vitamin D Total TSH Free T4 Thyroglobulin Ur Specific Mitchell Urine Protein Urine Glucose (UA) Urine Blood Assessment and Plan Assessment & Plan (1) Asthma: Code(s): J45.909 - Unspecified asthma, uncomplicated Qualifiers: Asthma severity: moderate Asthma persistence: persistent Asthma complication type: uncomplicated Qualified Code(s): J45.40 - Moderate persistent asthma, uncomplicated Plan: Stable/controlled lately Continue Advair HFA 115-21 mcg 2 inhalations BID and Albuterol HFA 2 inhalations every 6 hours as needed Continue Xolair injection 300 mg SQ every 2 weeks from pulmonary - follow up with pulmonary as scheduled (2) Sleep apnea: Comment: Mild degree of sleep apnea with increased severity in REM sleep. The AHI was 17/hr, REM AHI was 44/hr and oxygen [place] was 77% Code(s): G47.30 - Sleep apnea, unspecified Qualifiers: Sleep apnea type: obstructive Qualified Code(s): G47.33 - Obstructive sleep apnea (adult) (pediatric) Plan: Continue using her CPAP device at 12 cm of water when sleeping every night Follow up with Sleep Medicine as scheduled (3) Fibromyalgia: Code(s): M79.7 - Fibromyalgia Plan: Continue Gabapentin 800 mg TID and Tizanidine 4 mg TID PRN We recently tried switching her Gabapentin over to Pregabalin but this was denied by insurance She was also seen by rheumatology recently and advised to continue on current Rx and to follow up as needed (4) Migraine: Code(s): G43.909 - Migraine, unspecified, not intractable, without status migrainosus Qualifiers: Migraine type: unspecified Status migrainosus presence: without status migrainosus Intractability: not intractable Qualified Code(s): G43.909 - Migraine, unspecified, not intractable, without status migrainosus Plan: Stable/controlled on prophylactic Tx with Topiramate 50 mg BID Continue Fioricet 50-325-40 mg PRN Follow up with neurology as scheduled (5) GERD (gastroesophageal reflux disease): Code(s): K21.9 - Gastro-esophageal reflux disease without esophagitis Qualifiers: Esophagitis presence: without esophagitis Qualified Code(s): K21.9 - Gastro-esophageal reflux disease without esophagitis Plan: Reinforced dietary restrictions Upper GI series done last year revealed (+) large gastroesophageal reflux into the pharynx. No hiatal hernia seen Continue Omeprazole 40 mg QD (6) Post-surgical hypothyroidism: Code(s): E89.0 - Postprocedural hypothyroidism Plan: Continue Levothyroxine 175 mcg QD Follow up with endocrinology as scheduled (7) Papillary thyroid carcinoma: Comment: S/P total thyroidectomy by Dr. Cosme in May 2020 Code(s): C73 - Malignant neoplasm of thyroid gland Plan: Follow up with endocrinology as scheduled for continuing surveillance (8) Vitamin D deficiency: Code(s): E55.9 - Vitamin D deficiency, unspecified Plan: She is advised that her Vitamin D level was very low on her labs done back in February 2023 and should start back on oral supplements Will start her back on Vitamin D3 2000 units QD (9) Anxiety: Code(s): F41.9 - Anxiety disorder, unspecified Plan: Continue Clonazepam 1 mg QD PRN and Hydroxyzine 50 mg TID PRN Continue Fluoxetine 20 mg QD (10) Depression: Code(s): F32.A - Depression, unspecified Qualifiers: Depression Type: major depressive disorder Major depression recurrence: recurrent Active/Remission status: currently active Major depression episode severity: unspecified Qualified Code(s): F33.9 - Major depressive disorder, recurrent, unspecified Plan: Continue Bupropion 300 mg Q AM and Fluoxetine 20 mg QD She is on Topiramate 25 mg Q HS for her migraine - advised that this can also help as a mood stabilizer Follow up with psychiatry as scheduled (11) Morbid obesity with BMI of 45.0-49.9, adult: Code(s): E66.01 - Morbid (severe) obesity due to excess calories; Z68.42 - Body mass index [BMI] 45.0-49.9, adult Plan: Reinforced diet/exercise as tolerated/lose weight She has been referred to weight management at her last visit and will start seeing them later this afternoon Plan Follow up in 4 months Orders: Orders Comprehensive [place]. Panel Fast 4 Months E78.00 - Pure hypercholesterolemia, unspecified Free T4 (Free Thyroxine) 4 Months E03.9 - Hypothyroidism, unspecified Vitamin D 25-OH Total 4 Months E55.9 - Vitamin D deficiency, unspecified Complete Blood Count Auto Diff 4 Months D64.9 - Anemia, unspecified Lipid Panel 4 Months E78.00 - Pure hypercholesterolemia, unspecified Thyroid Stimulating Hormone 4 Months E03.9 - Hypothyroidism, unspecified UA CC w/rflx Micro + Cult 4 Months R30.0 - Dysuria Erythrocyte Sedimentation Rate 4 Months M79.7 - Fibromyalgia Medications: New cholecalciferol (vitamin D3) 50 mcg PO DAILY 90 caps 3RF 90 days E55.9 - Vitamin D deficiency, unspecified Refilled Ventolin HFA 90 mcg/actuation (albuterol sulfate) 2 puffs inhalation Q4-6H PRN 18 ea 5RF shortness of breath or wheezing NS gabapentin 800 mg PO QID 120 tabs 1RF 30 days Coding Level of Care Code Est Pt Level 4 (83216) Diagnoses Moderate persistent asthma without complication J45.40 Asthma severity: moderate Asthma persistence: persistent Asthma complication type: uncomplicated Obstructive sleep apnea syndrome G47.33 Sleep apnea type: obstructive Fibromyalgia M79.7 Migraine without status migrainosus, not intractable, unspecified migraine type G43.909 Migraine type: unspecified Status migrainosus presence: without status migrainosus Intractability: not intractable Gastroesophageal reflux disease without esophagitis K21.9 Esophagitis presence: without esophagitis Post-surgical hypothyroidism E89.0 Papillary thyroid carcinoma C73 Vitamin D deficiency E55.9 Anxiety F41.9 Episode of recurrent major depressive disorder, unspecified depression episode severity F33.9 Depression Type: major depressive disorder Major depression recurrence: recurrent Active/Remission status: currently active Major depression episode severity: unspecified Morbid obesity with BMI of 45.0-49.9, adult E66.01; Z68.42
== END 2023-06-27 13:37 | disposition home or self-care (01) ==
PROVIDERS: PCP Internal Medicine; Visit Provider Internal Medicine
DX: C73 Malignant neoplasm of thyroid gland (principal); F33.9 Major depressive disorder, recurrent, unspecified; Z68.42 Body mass index [BMI] 45.0-49.9, adult; E66.01 Morbid (severe) obesity due to excess calories; G47.33 Obstructive sleep apnea (adult) (pediatric); J45.40 Moderate persistent asthma, uncomplicated; M79.7 Fibromyalgia; G43.909 Migraine, unspecified, not intractable, without status migrainosus; K21.9 Gastro-esophageal reflux disease without esophagitis; E89.0 Postprocedural hypothyroidism; E55.9 Vitamin D deficiency, unspecified; F41.9 Anxiety disorder, unspecified
CPT/HCPCS: 99214

== ENCOUNTER → 2023-06-27 13:48 | Outpatient (BNVA) | payer OTHER, SELFPAY | PROVIDERS: PCP Internal Medicine; Visit Provider Surgery ==

== ENCOUNTER 2023-07-07 14:00 | Outpatient (REF) | payer OTHER, SELFPAY ==
--- NOTE | ~2023-07-07 | US_ITS ---
EXAMINATION: US SOFT TISSUE HEAD/NECK CLINICAL INFORMATION: Personal history of malignant neoplasm of thyroid. COMPARISON: Ultrasound-guided left neck lymph node biopsy 10/28/2021. Ultrasound soft tissue head/neck 09/14/2021. Thyroid ultrasound 11/30/2019. TECHNIQUE: Linear transducer du-scale and color Doppler examination of the thyroid bed and surrounding soft tissue. FINDINGS: THYROID BED: Prior thyroidectomy. No residual thyroid tissue demonstrated in the thyroid bed. No cystic or solid nodules demonstrated in the thyroid bed. RIGHT NECK SOFT TISSUES: Right level 2 lymph node measures 1.4 x 0.8 x 0.7 cm. Right level 3 lymph node measures 0.9 x 0.5 x 0.9 cm. These lymph nodes appear similar to the prior study. LEFT NECK SOFT TISSUES: Left level 1B lymph node measures 2.2 x 1.0 x 1.8 cm Left level 2 lymph node measures 1.1 x 0.4 x 0.8 cm. Left level 3 lymph node measures 0.9 x 0.5 x 0.8 cm. Left level 4 lymph node measures 0.7 x 0.3 x 0.6 cm. These lymph nodes appear similar to the prior study. US/US soft tiss head and/or neck IMPRESSION: Allowing for slight differences in patient positioning and examination technique, there has been no significant interval change in bilateral cervical lymph nodes. No residual thyroid tissue or new abnormality in the thyroidectomy bed.
[2023-07-07 16:08] LABS: Free T4 (Free Thyroxine) 1.16 ng/dL (0.71-1.85); Thyroid Stimulating Hormone 2.41 uIU/mL (0.32-4.0)
[2023-07-12 04:38] LABS: Thyroglobulin Antibody <1 IU/mL (<=1); Thyroglobulin Level <0.1 ng/mL
== END 2023-07-07 14:01 | disposition home or self-care (01) ==
LOC: HO.US 14:00
PROVIDERS: PCP Internal Medicine; Visit Provider Internal Medicine Endocrinology, Diabetes & Metabolism
DX: C73 Malignant neoplasm of thyroid gland (principal); Z85.850 Personal history of malignant neoplasm of thyroid
CPT/HCPCS: 36415; 76536; 84432; 84439; 84443; 86800

== ENCOUNTER → 2023-07-18 08:20 | Outpatient (BNVA) | payer OTHER, SELFPAY | PROVIDERS: PCP Internal Medicine; Visit Provider Surgery ==

== ENCOUNTER 2023-07-18 15:53 | Outpatient (AMB) | payer OTHER, SELFPAY ==
--- NOTE | 2023-07-18 15:32 | MHC.OFFVISWM ---
Intake VS Expanded 07/18/23 15:56 Height 5 ft 2 in Weight 309 lb 9 oz BMI 56.6 Body Fat % 51.4 Body Fat Mass 159.2 Fat Free Mass 150.6 Visceral Fat Rating 20 Body Water Mass 107.8 Basal Metabolic Rate/Score 2,197 Intake Visit Reasons: TV Re-Est SWL BMI 56.7 *SEE COMMENTS* Allergies morphine [MORPHINE] Allergy (Intermediate, Verified 07/18/23 15:32) WBC ELEVATED/ N/V shellfish derived [SHELLFISH DERIVED] Allergy (Intermediate, Verified 07/18/23 15:32) HIVES iodine [IODINE] Allergy (Mild, Verified 07/18/23 15:32) RASH duloxetine Adverse Reaction (Intermediate, Verified 07/18/23 15:32) vomiting Medication List - Last Reconciled 07/18/23 by Pedro Crouch MD bupropion HCl 300 mg PO QAM 30 days gtbyygseji-[id number]-cjsv 50-325-40 mg 1 tab PO Q6-8H PRN 30 days cholecalciferol (vitamin D3) 50 mcg PO DAILY 90 days clonazepam (Klonopin) 1 mg PO DAILY fluoxetine 20 mg PO DAILY 30 days gabapentin 800 mg PO QID 30 days hydroxyzine HCl 50 mg PO TID PRN 30 days ipratropium-albuterol 0.5 mg-3 mg(2.5 mg base)/3 mL 3 mL inhalation Q4-6H PRN 30 days levothyroxine 150 mcg PO DAILY 90 days mecobalamin (vitamin B12) 1,000 mcg sublingual DAILY [NEBULIZER Use as directed as needed] omalizumab (Xolair) 300 mg subcut Q2W 28 days omeprazole 40 mg PO DAILY 30 days tizanidine 4 mg PO TID PRN 30 days topiramate 50 mg PO BID 30 days Ventolin HFA 90 mcg/actuation (albuterol sulfate) 2 puffs inhalation Q4-6H PRN NS HPI TV Re-Est SWL BMI 56.7 *SEE COMMENTS* HPI Details Start time: 3.25pm, End time: 3.55pm ?I spent 25 minutes speaking with the patient on the phone plus an additional 5 minutes reviewing and updating records for a total of 30 minutes HPI Comments History of Present Illness Details Previous weight lo ss efforts: Exerci se and self diet W a[place] up: 8.30am, S shoshana: 12am Breakf ast: skips Lunch: 12-1pm (tacos and subway) Dinner: 7. 30pm (rice, beans and chicken) Snac ks: 9pm (Watermelo n, or cookie) Exer cise: none Fluids: Coffee: 1 cup per day (liquid caram el and sugar), tea : none, soda: Ging erale zero, juice: none, ETOH: none PFSH Medical History Morbid obesity Hypersomnia Loud snoring Blurry vision, bilateral Chronic migraine without aura PTSD (post-traumatic stress disorder) Bipolar depression Depression Morbid obesity with BMI of 45.0-49.9, adult Migraine Bilateral foot pain Fibromyalgia History of thyroid cancer Smoker Papillary thyroid carcinoma Post-surgical hypothyroidism Bilateral lower extremity edema Elevated LFTs Anxiety Asthma Hypothyroidism Cervical lymphadenopathy Vitamin D deficiency Thyroid cancer Surgical History History of surgery Hx of lymph node biopsy Hx of total thyroidectomy (~05/2020) Hx of section Hx of cholecystectomy Family History Father Diabetes Asthma Hypertension Mother Diabetes Hypertension Multiple sclerosis Daughter No problems noted. Daughter No problems noted. Daughter No problems noted. Daughter Deaf Asthma Daughter Deaf Son No problems noted. Son Asthma Son No problems noted. Social History (Updated 06/27/23 @ 14:18 by Kaila Willard CMA) Household Members: Family Household Members Other:: is recenlty - has 8 children_(8-18) Housing: Apartment Alcohol intake: former Patient Tobacco Use Status: Former Tobacco user Quit Date: 01/05/22 Tobacco use type: Cigarette Years Smoked: 20 years e-Cigarette/Vaping Use: Currently Using Second Hand Smoke Exposure: Yes service: No Current occupational status: unemployed Current occupational exposures/hazards: No Cognitive needs: No Hearing needs: No Vision needs: No Female Reproductive History Menstrual Age of Menarche: 12 Assessment & Plan Assessment & Plan (1) Morbid obesity: Code(s): E66.01 - Morbid (severe) obesity due to excess calories Plan: 1.? Plan for lap sleeve gastrectomy. If diaphragmatic or ventral hernias are present at time of surgery, these will be repaired laparoscopically as well. Risks and complications were discussed in detail including possible conversion to an open procedure, anastomotic leak, bleeding requiring transfusion, small bowel obstruction, , DVT and pulmonary embolism, cardiac, or pulmonary complications, as intermediate frame tender complications such as anastomotic ulcer, insufficient weight loss and vitamin deficiencies. I emphasized the importance of close follow-up, adherence to instructions and good communication. 2. Nutritional counseling. Start with 1 Pure protein (buy at [employer], [employer], [employer], [facility]) shake (1/2 scoop in 8oz low fat unsweetened almond milk each) at 9am-11am, one more Pure protein shake with ONE scoop in 8oz almond milk at 12pm-2pm, 1 protein bar (Zone Perfect bar, buy at [employer], ?[employer], [facility], or [employer]) at 3pm-5pm, dinner at 6pm (10 forks of protein and 10 forks of salad/vegetables) and one more protein bar after dinner at 9pm-11pm per day. Meal to include lean meat (beef, fish, pork, turkey, chicken), or tajik yogurt, or egg whites, or beans with a salad with olive oil and fruits (berries, pears, apples, kiwi). Avoid salt, breads, potatoes, rice, pasta, desserts. 3. Each shake would be drunk slowly, like coffee in a period of 2 hours. May add your coffee into the shake, if flavors match. 4. Cut each bar in 4 pieces and eat each piece in 30min ?to make each bar last 2 hours. 5. I emphasized the importance of measuring accurately the food portion and measure it when serving the food in plate 6. The meal portions include 10 full-size forks of meat and 10 full-size forks of salad. You always eat the meat portion but you can replace up to 5 forks for salad/vegetables with rice, potatoes or pasta, or a fruit ?if you like. The less you do it the better weight loss will be. 7. One full-size fork is what it can be scooped on the fork without falling aside and not what can be bit with the fork. Use regular forks like those you find in a typical restaurant. 8.? Please buy a body composition scale and send me weight measurements as soon as possible and then once a week. Always include your diet and exercise plan. 9. Start treadmill at the [facility] with an incline of 2.0 and speed of 3.0. Increase incline by 1 every 3 min to a max incline of 8.0, stay 3min at 8.0 and then return to 2.0 and repeat same steps until at least 350 calories are burned, as many days as possible per week. Goal is to burn 2000 calories per week on exercise. Start also weight exercises with 20-30lbs for chest/shoulders/abdomen and 40-50lbs for thighs doing 2 sets of 15 repetitions each. 10. The days you can't go to the [facility], start walking outside daily, tracking calories with a goal of 300 calories per day. Goal is to burn 2000 calories per week on active walking. 11. Alternatively purchase a stationary bike, elliptical or treadmill at home. Let me know if you do so I can give you an exercise plan. 12.?It is important of avoiding and for at least 18 months postoperatively and has been discussed at the infosession. 13. Goal is to lose at least 1.5-2lbs per week 14. Goal to lose 10% of your weight before surgery, which is about 30lbs. Ultimate weight goal: 279lbs before surgery Orders: Orders Hemoglobin A1c Today E03.9 - Hypothyroidism, unspecified, E66.01 - Morbid (severe) obesity due to excess calories, G47.30 - Sleep apnea, unspecified H Pylori Breath Test Today E03.9 - Hypothyroidism, unspecified, E66.01 - Morbid (severe) obesity due to excess calories, G47.30 - Sleep apnea, unspecified Complete Blood Count Auto Diff Today E03.9 - Hypothyroidism, unspecified, E66.01 - Morbid (severe) obesity due to excess calories, G47.30 - Sleep apnea, unspecified Comprehensive Met. Panel Today E03.9 - Hypothyroidism, unspecified, E66.01 - Morbid (severe) obesity due to excess calories, G47.30 - Sleep apnea, unspecified Vitamin B12 and Folate Today E03.9 - Hypothyroidism, unspecified, E66.01 - Morbid (severe) obesity due to excess calories, G47.30 - Sleep apnea, unspecified Zinc Today E03.9 - Hypothyroidism, unspecified, E66.01 - Morbid (severe) obesity due to excess calories, G47.30 - Sleep apnea, unspecified C Reactive Protein Today E03.9 - Hypothyroidism, unspecified, E66.01 - Morbid (severe) obesity due to excess calories, G47.30 - Sleep apnea, unspecified Vitamin B1 Today E03.9 - Hypothyroidism, unspecified, E66.01 - Morbid (severe) obesity due to excess calories, G47.30 - Sleep apnea, unspecified TSH reflex Free T4 Today E03.9 - Hypothyroidism, unspecified, E66.01 - Morbid (severe) obesity due to excess calories, G47.30 - Sleep apnea, unspecified US abdomen comp w elastography Today E03.9 - Hypothyroidism, unspecified, E66.01 - Morbid (severe) obesity due to excess calories, G47.30 - Sleep apnea, unspecified XR chest 2V Today E03.9 - Hypothyroidism, unspecified, E66.01 - Morbid (severe) obesity due to excess calories, G47.30 - Sleep apnea, unspecified ECG 12 lead EKG Today E03.9 - Hypothyroidism, unspecified, E66.01 - Morbid (severe) obesity due to excess calories, G47.30 - Sleep apnea, unspecified Insulin Today E03.9 - Hypothyroidism, unspecified, E66.01 - Morbid (severe) obesity due to excess calories, G47.30 - Sleep apnea, unspecified Lipid Panel Today E03.9 - Hypothyroidism, unspecified, E66.01 - Morbid (severe) obesity due to excess calories, G47.30 - Sleep apnea, unspecified IRON PROFILE Today E03.9 - Hypothyroidism, unspecified, E66.01 - Morbid (severe) obesity due to excess calories, G47.30 - Sleep apnea, unspecified Vitamin A Today E03.9 - Hypothyroidism, unspecified, E66.01 - Morbid (severe) obesity due to excess calories, G47.30 - Sleep apnea, unspecified Ferritin Today E03.9 - Hypothyroidism, unspecified, E66.01 - Morbid (severe) obesity due to excess calories, G47.30 - Sleep apnea, unspecified Vitamin D 25-OH Total Today E03.9 - Hypothyroidism, unspecified, E66.01 - Morbid (severe) obesity due to excess calories, G47.30 - Sleep apnea, unspecified Referrals Behavioral Health Referral E03.9 - Hypothyroidism, unspecified, E66.01 - Morbid (severe) obesity due to excess calories, G47.30 - Sleep apnea, unspecified Nutrition/Dietitian Referral E03.9 - Hypothyroidism, unspecified, E66.01 - Morbid (severe) obesity due to excess calories, G47.30 - Sleep apnea, unspecified Telehealth Telehealth Location of provider rendering services: practice address Location of patient: address on file Patient Identification confirmed using: Name, : Yes Telehealth method: voice only Patient verbally consented to treatment: Yes Patient verbally consented to billing insurance company: Yes Patient informed of any privacy concerns related to visit: Yes Minutes spent on Phone/Video with Pt.: 30 Coding Level of Care Code Tele [facility] Pt Level 3 (26746) Diagnoses Morbid obesity E66.01 Time Spent (min) 30
[2023-07-18 15:56] VITALS: BMI 56.6
== END 2023-07-18 15:58 | disposition home or self-care (01) ==
PROVIDERS: PCP Internal Medicine; Visit Provider Surgery
DX: E66.01 Morbid (severe) obesity due to excess calories (principal); Z68.43 Body mass index [BMI] 50.0-59.9, adult
CPT/HCPCS: 99214

== ENCOUNTER 2023-07-30 09:32 | Outpatient (REF) | payer OTHER, SELFPAY ==
--- NOTE | ~2023-07-30 | XR_ITS ---
EXAMINATION: XR CHEST CLINICAL INFORMATION: Reason for Exam E66.01 - Morbid (severe) obesity due to excess calories COMPARISON: Chest radiograph 08/10/2021 TECHNIQUE: 2 views of the chest FINDINGS: Lines and tubes: None. Clear lungs. No pleural effusion. No pneumothorax. Normal cardiomediastinal silhouette. XR/XR chest 2V IMPRESSION: * Clear lungs.
[2023-07-30 09:46] LABS: MANUAL DIFF FLAG NO
[2023-07-30 10:35] LABS: Basophils Absolute Auto 0.1 X10*3/uL (0.0-0.2); Basophils Percent Auto 0.8 % (0-2); Eosinophils Absolute Auto 0.6 X10*3/uL (0.0-0.4); Eosinophils Percent Auto 7.5 % (0-4); Hematocrit 35.9 % (37.0-47.0); Hemoglobin 11.2 g/dl (12.0-16.0); Imm Gran Abs Auto 0.03 X10*3/uL (0.00-0.03); Imm Gran Pct Auto 0.4 % (0.0-0.4); Lymphocytes Absolute Auto 2.4 X10*3/uL (1.2-4.9); Lymphocytes Percent Auto 30.4 % (20-40); Mean Corpuscular HGB Conc 31.2 g/dl (31.0-35.0); Mean Corpuscular Hemoglobin 26.4 pg (27.0-33.0); Mean Corpuscular Volume 84.5 fL (80.0-98.0); Mean Platelet Volume 9.2 fL (9.4-12.3); Monocytes Absolute Auto 0.7 X10*3/uL (0.1-1.2); Monocytes Percent Auto 8.8 % (2-11); Neutrophils Absolute Auto 4.1 x10*3/uL (2.0-8.3); Neutrophils Percent Auto 52.1 % (45-73); Platelet Count 431 X10*3/uL (160-400); Red Blood Count 4.25 X10*6/uL (4.20-5.50); White Blood Count 7.9 X10*3/uL (4.8-10.8)
[2023-07-30 11:10] LABS: Alanine Aminotransferase 94 U/L (0-31); Albumin Level 3.7 g/dL (3.5-5.0); Alkaline Phosphatase 90 U/L (39-117); Anion Gap 13 (12-20); Aspartate Amino Transferase 62 U/L (5-31); Bilirubin Total 0.3 mg/dL (0.0-1.0); Blood Urea Nitrogen 15 mg/dL (9-16); C Reactive Protein 2.54 mg/dL (< or = 0.50); Calcium 8.7 mg/dL (8.4-10.2); Carbon Dioxide 22 mmol/L (22-29); Chloride 106 mmol/L (96-108); Cholesterol 134 mg/dL (<200); Estimated Glomerular Filt Rate > 60; Glucose Random 95 mg/dL (60-115); HDL Cholesterol 46 mg/dL (>40); Iron 26 mcg/dL (30-160); LDL Cholesterol Calculated 67 mg/dL (<100); Percent Iron Saturation 7 % (15-50); Sodium 137 mmol/L (135-145); Total Iron Binding Capacity 380 mcg/dL (228-428); Total Protein 8.1 g/dL (6.5-8.0); Triglycerides 106 mg/dL (<150); Unsaturated Iron Binding 354 ug/dL
[2023-07-30 11:27] LABS: Ferritin 12 ng/mL (10-122); Insulin 19 uU/mL (2-29); TSH reflex Free T4 1.88 uIU/mL (0.32-4.0); Vitamin D 25-OH Total 22.9 ng/mL (>30)
[2023-07-30 11:38] LABS: Folate 7.2 ng/mL (> or = 4.0); Vitamin B12 404 pg/mL (200-900)
[2023-08-02 16:29] LABS: Zinc 63 mcg/dL (60-130)
[2023-08-03 05:34] LABS: Vitamin A 35 mcg/dL (38-98)
[2023-08-05 16:15] LABS: Vitamin B1 7 nmol/L (8-30)
== END 2023-07-30 09:33 | disposition home or self-care (01) ==
LOC: HO.LAB 09:32
PROVIDERS: PCP Surgery; Visit Provider Surgery
DX: E66.01 Morbid (severe) obesity due to excess calories (principal); G47.30 Sleep apnea, unspecified; E03.9 Hypothyroidism, unspecified
CPT/HCPCS: 36415; 71046; 80053; 80061; 82306; 82607; 82728; 82746; 83525; 83540; 84425; 84443; 84590; 84630; 85025; 86140

== ENCOUNTER 2023-08-08 08:33 | Outpatient (AMB) | payer OTHER, SELFPAY ==
--- NOTE | 2023-08-07 16:18 | A.OFFVIS_ITS ---
Intake VS Expanded 08/07/23 16:19 Height 5 ft 2 in Weight 298 lb 2 oz BMI 54.5 Body Fat % 57.6 Body Fat Mass 171.7 Fat Free Mass 126.5 Visceral Fat Rating 22.2 Body Water % 34 Body Water Mass 101.3 Basal Metabolic Rate/Score 2,002 Intake Visit Reasons: TV Follow Up SWL - 1ST Allergies morphine [MORPHINE] Allergy (Intermediate, Verified 07/18/23 15:32) WBC ELEVATED/ N/V shellfish derived [SHELLFISH DERIVED] Allergy (Intermediate, Verified 07/18/23 15:32) HIVES iodine [IODINE] Allergy (Mild, Verified 07/18/23 15:32) RASH duloxetine Adverse Reaction (Intermediate, Verified 07/18/23 15:32) vomiting HPI TV Follow Up SWL - 1ST HPI Details Start time: 9.30am, End time: 9.55am ?I spent 20 minutes speaking with the patient on the phone plus an additional 5 minutes reviewing and updating records for a total of 25 minutes HPI Comments History of Present Illness Details Overall weight loss: 11.7lbs, or 3.78% TBWL Is doing one Pure protein shake (1/2 scoop in 8oz almond milk), one Pure protein shake (1 scoop in almond milk), 2 Zone Perfect protein bars and one meal (8 forks of protein and 8 forks of salad or vegetables) Exercise: is doing the Elliptical doing 180 calories daily PFSH Medical History (Updated 08/07/23 @ 16:28 by Pedro Crouch MD) Anemia Morbid obesity Hypersomnia Loud snoring Blurry vision, bilateral Chronic migraine without aura PTSD (post-traumatic stress disorder) Bipolar depression Depression Morbid obesity with BMI of 45.0-49.9, adult Migraine Bilateral foot pain Fibromyalgia History of thyroid cancer Smoker Papillary thyroid carcinoma Post-surgical hypothyroidism Bilateral lower extremity edema Elevated LFTs Anxiety Asthma Hypothyroidism Cervical lymphadenopathy Vitamin D deficiency Thyroid cancer Surgical History History of surgery Hx of lymph node biopsy Hx of total thyroidectomy (~05/2020) Hx of section Hx of cholecystectomy Family History Father Diabetes Asthma Hypertension Mother Diabetes Hypertension Multiple sclerosis Daughter No problems noted. Daughter No problems noted. Daughter No problems noted. Daughter Deaf Asthma Daughter Deaf Son No problems noted. Son Asthma Son No problems noted. Social History (Updated 06/27/23 @ 14:18 by Kaila Willard [facility]) Household Members: Family Household Members Other:: is recenlty - has 8 children_(8-18) Housing: Apartment Alcohol intake: former Patient Tobacco Use Status: Former Tobacco user Quit Date: 01/05/22 Tobacco use type: Cigarette Years Smoked: 20 years e-Cigarette/Vaping Use: Currently Using Second Hand Smoke Exposure: Yes service: No Current occupational status: unemployed Current occupational exposures/hazards: No Cognitive needs: No Hearing needs: No Vision needs: No Female Reproductive History Menstrual Age of Menarche: 12 Physical Exam Vital Signs: BMI result Body Mass Index 54.5 Assessment & Plan Assessment & Plan (1) Morbid obesity: Code(s): E66.01 - Morbid (severe) obesity due to excess calories Plan: 1. Continue present nutritional plan of one Pure protein shake (1/2 scoop in 8oz almond milk), one Pure protein shake (1 scoop in almond milk), 2 Zone Perfect protein bars and one meal (10 forks of protein and 10 forks of salad or vegetables) 2. Exercise: continue Elliptical at 2 sessions per day for 150 calories each for a total of 300 calories per day, daily. Goal is to burn 2000 calories per week 3. Continue to send me weight measurements weekly on Fridays Medications: New thiamine HCl (vitamin B1) 100 mg PO DAILY 60 tabs 0RF E51.9 - Thiamine deficiency, unspecified Telehealth Telehealth Location of provider rendering services: practice address Location of patient: address on file Patient Identification confirmed using: Name, : Yes Telehealth method: voice only Patient verbally consented to treatment: Yes Patient verbally consented to billing insurance company: Yes Patient informed of any privacy concerns related to visit: Yes Minutes spent on Phone/Video with Pt.: 25 Coding Level of Care Code Tele Est Pt Level 3 (39891) Diagnoses Morbid obesity E66.01 Time Spent (min) 20
[2023-08-07 16:19] VITALS: BMI 54.5
== END 2023-08-08 09:57 | disposition home or self-care (01) ==
LOC: HO.HBS 08:33
PROVIDERS: PCP Surgery; Visit Provider Surgery
DX: E66.01 Morbid (severe) obesity due to excess calories (principal)
CPT/HCPCS: 99213

== ENCOUNTER → 2023-08-08 08:33 | Outpatient (BNVA) | payer OTHER, SELFPAY | PROVIDERS: PCP Surgery; Visit Provider Surgery | DX: E51.9 Thiamine deficiency, unspecified (principal) ==

== ENCOUNTER 2023-08-11 10:28 | Outpatient (REF) | payer OTHER, SELFPAY ==
--- NOTE | ~2023-08-11 | US_ITS ---
EXAMINATION: US COMPLETE ABDOMEN WITH LIVER ELASTOGRAPHY CLINICAL INFORMATION: Obesity. COMPARISON: None available. TECHNIQUE: Real-time imaging of the abdominal viscera. Noninvasive ultrasound liver fibrosis assessment is performed using Pk ElastPQ point quantification shear wave elastography (2D-SWE) with a C5-2 MHz transducer. Multiple elastography samples are obtained. FINDINGS: PANCREAS: Head appears unremarkable. Body and tail not well visualized. ABDOMINAL AORTA: The proximal, middle, and distal aortic segments appear unremarkable in caliber. INFERIOR VENA CAVA: Visualized portions appear unremarkable. LIVER: Mild echogenic diffusely. Unremarkable in contour. No focal lesion or intrahepatic biliary duct dilatation identified. The right lobe measures 16.1 cm in length. The left lobe measures 11.5 cm in length. Portal flow is towards the liver (hepatopetal). Shear wave liver elastography median stiffness is 1.37 m/s (reference: normal median stiffness is 1.3 m/s or less). IQR/median stiffness to assess sampling precision is 0.09 (reference: good quality data set is IQR/median stiffness of 0.15 or less). GALLBLADDER: Gallbladder not visualized, consistent with prior surgical removal. COMMON BILE DUCT: Normal in caliber measuring 0.4 cm in diameter. RIGHT KIDNEY: No hydronephrosis. Normal variant prominent column of Leif. No renal calculi or focal parenchymal lesion identified. The kidney measures 10.7 cm in maximum dimension. LEFT KIDNEY: No hydronephrosis. No renal calculi or focal parenchymal lesion identified. The kidney measures 10.3 cm in maximum dimension. SPLEEN: The spleen measures 11.5 cm in maximum dimension. FREE FLUID: None. US/US abdomen comp w elastography IMPRESSION: Liver elastography: In the absence of other known clinical signs, measurements rule out compensated advanced chronic liver disease. If there are known clinical signs, further testing may be needed for confirmation. Fatty infiltration of the liver. Status post cholecystectomy. REFERENCE: Society of Radiologists in Ultrasound Liver Stiffness Thresholds (2020): LIVER STIFFNESS THRESHOLDS: *Liver Stiffness equal or less than 1.3 m/s: High probability of being normal. *Liver Stiffness less than 1.7 m/s: In the absence of other known clinical signs, rules out compensated advanced chronic liver disease. *Liver Stiffness 1.7-2.1 m/s: Suggestive of compensated advanced chronic liver disease but need further test for confirmation. *Liver Stiffness over 2.1 m/s: Rules in compensated advanced chronic liver disease. *Liver Stiffness over 2.4 m/s: Suggestive of clinically significant portal hypertension. QUALITY OF DATA SET: *IQR/Median value equal or less than 0.15 implies a quality data set. *IQR/Median value over 0.15 implies a poor quality data set. SIGNIFICANT CHANGE FROM PRIOR EXAM: Significant change if liver stiffness measurement is 10% or greater from prior exam. OTHER CONSIDERATIONS: The stage of liver fibrosis may be overestimated in the setting of acute hepatitis, liver inflammation, elevated liver function tests, hepatic vascular congestion, obstructive cholestasis, non-fasting state, and infiltrative diseases such as amyloidosis and lymphoma. In some patients with NAFLD, the liver stiffness thresholds for compensated advanced chronic liver disease may be lower. In causes other than viral hepatitis and NAFLD, liver stiffness thresholds are not well established.
--- NOTE | 2023-08-11 10:32 | ECG_ITS ---
Test Reason : E66.01 Blood Pressure : / mmHG Vent. Rate : 101 BPM Atrial Rate : 101 BPM P-R Int : 120 ms QRS Dur : 074 ms QT Int : 350 ms P-R-T Axes : 024 022 010 degrees QTc Int : 453 ms Sinus tachycardia Low voltage QRS Borderline ECG When compared with ECG of 17-FEB-2022 13:26, No significant change was found Referred By: Pedro Crouch Electronically Signed By:Adriel Hoskins
== END 2023-08-11 10:29 | disposition home or self-care (01) ==
LOC: HO.US 10:28
PROVIDERS: PCP Internal Medicine; Visit Provider Surgery
DX: E03.9 Hypothyroidism, unspecified (principal); E66.01 Morbid (severe) obesity due to excess calories; G47.30 Sleep apnea, unspecified; Z90.49 Acquired absence of other specified parts of digestive tract
CPT/HCPCS: 76700; 76981; 93005

== ENCOUNTER → 2023-08-11 10:32 | Outpatient (BNV) | payer OTHER, SELFPAY | PROVIDERS: PCP Internal Medicine; Visit Provider Internal Medicine Cardiovascular Disease | DX: R00.0 Tachycardia, unspecified (principal); E66.01 Morbid (severe) obesity due to excess calories | CPT/HCPCS: 93010 ==

== ENCOUNTER 2023-08-17 11:20 | Outpatient (AMB) | payer OTHER, SELFPAY ==
--- NOTE | 2023-08-17 11:37 | MHC.OFFVIS ---
Intake Vital Signs 08/17/23 11:47 Height 5 ft 2 in Weight 311 lb 8 oz BMI 57.0 BP 120/80 Blood Pressure Location Lt brachial Position Sitting Pulse 106 H Pulse Source Pulse Oximeter Pulse Oximetry (%) 97 Oxygen Delivery Method Room Air Intake Visit Reasons: 4 mnts f/u for MS - CONF w/address Intake Note: Patients presents for 4 months f/u. Allergies morphine [MORPHINE] Allergy (Intermediate, Verified 08/17/23 11:46) WBC ELEVATED/ N/V shellfish derived [SHELLFISH DERIVED] Allergy (Intermediate, Verified 08/17/23 11:46) HIVES iodine [IODINE] Allergy (Mild, Verified 08/17/23 11:46) RASH duloxetine Adverse Reaction (Intermediate, Verified 08/17/23 11:46) vomiting HPI HPI Comments History of Present Illness Details 38 y/o female comes here for follow up of migraines and sleep study. The PSG sleep study result was mid degree of sleep apnea with increased severity in REM sleep. The AHI was 17/hr, REM AHI was 44/hr and oxygen domingo was 77%. Pt underwent titration study and started CPAP at [id number]. The CPAP compliance and therapy response (05/14/23-08/11/23) reivewed. The usage days 52% and the average usage hours 4 hrs 44 min. The AHI was 2.6/hr. She sleeps well with CPAP, wakes up well rested, but wakes up around 6 am. She does not snore with CPAP. Pt reports that her throbbing headache's frequency and intensity has improved. She had 4-5 headache days before, now probably three times a week and it last about 15 min. She is on gabapentin 800 mg QID, and topiramate 50 mg BID, has not been using Firocet for a while. Pt is also followed by management. The brain MRI result reviewed. Unremarkable noncontrast MRI of the brain. [facility] Medical History (Updated 08/07/23 @ 16:28 by Pedro Crouch MD) Anemia Morbid obesity Hypersomnia Loud snoring Blurry vision, bilateral Chronic migraine without aura PTSD (post-traumatic stress disorder) Bipolar depression Depression Morbid obesity with BMI of 45.0-49.9, adult Migraine Bilateral foot pain Fibromyalgia History of thyroid cancer Smoker Papillary thyroid carcinoma Post-surgical hypothyroidism Bilateral lower extremity edema Elevated LFTs Anxiety Asthma Hypothyroidism Cervical lymphadenopathy Vitamin D deficiency Thyroid cancer Surgical History History of surgery Hx of lymph node biopsy Hx of total thyroidectomy (~05/2020) Hx of section Hx of cholecystectomy Family History Father Diabetes Asthma Hypertension Mother Diabetes Hypertension Multiple sclerosis Daughter No problems noted. Daughter No problems noted. Daughter No problems noted. Daughter Deaf Asthma Daughter Deaf Son No problems noted. Son Asthma Son No problems noted. Social History Household Members: Family Household Members Other:: is recenlty - has 8 children_(8-18) Housing: Apartment Alcohol intake: former Patient Tobacco Use Status: Former Tobacco user Quit Date: 01/05/22 Tobacco use type: Cigarette Years Smoked: 20 years e-Cigarette/Vaping Use: Currently Using Second Hand Smoke Exposure: Yes service: No Current occupational status: unemployed Current occupational exposures/hazards: No Cognitive needs: No Hearing needs: No Vision needs: No Female Reproductive History Menstrual Age of Menarche: 12 Review of Systems Const All systems reviewed & are unremarkable except as noted in HPI and below Physical Exam Vital Signs: Last Vital Signs Pulse 106 H 08/17/23 11:47 BP 120/80 08/17/23 11:47 Pulse Ox 97 08/17/23 11:47 Oxygen Delivery Method Room Air 08/17/23 11:47 BMI result Body Mass Index 57.0 Const General: cooperative and no acute distress Nutritional Appearance: obese Orientation/consciousness: patient oriented x3 Eyes Pupils: Equal, round and reactive pupils present Neuro Other: mallampatti grade 4 Mild postural tremors General: patient oriented x3, tone normal and moves all extremities Cranial nerves: Yes Facial sensation intact/muscles of mastication intact, Yes Equal, round and reactive pupils present, Yes Bilaterally intact EOM present, Yes Nystagmus not present and Yes Normal facial strength present Cognition (Neuro): normal cognition Gait exam (Neuro): Antalgic gait present Motor exam (neuro): 5/5 motor strength present throughout and Normal motor muscle tone present throughout Deep tendon reflexes (DTR's): Right triceps reflex intensity grade: 1+, Left triceps reflex intensity grade: 1+, Rt Biceps (C5, C6): 1+, Left biceps reflex intensity grade: 1+, Right brachioradialis reflex intensity grade: 1+, Left brachioradialis reflex intensity grade: 1+, Right patellar reflex intensity grade: 1+ and Left patellar reflex intensity grade: 1+ Coordination: [id number] test normal Assessment & Plan Assessment & Plan (1) Chronic migraine without aura: Comment: ? Intracranial hypertension Code(s): G43.709 - Chronic migraine without aura, not intractable, without status migrainosus (2) Sleep apnea: Comment: Mild degree of sleep apnea with increased severity in REM sleep. The AHI was 17/hr, REM AHI was 44/hr and oxygen domingo was 77% Code(s): G47.30 - Sleep apnea, unspecified Qualifiers: Sleep apnea type: obstructive Qualified Code(s): G47.33 - Obstructive sleep apnea (adult) (pediatric) Plan Continue to use CPAP at [id number] as patient experiences good clinical effects, good quality sleep, no snoring, less headache. Stressed CPAP compliance, use nightly and more than 4 hrs. Continue to take topiramate to 50mg bid. Advised patient to try magnesium 400 mg qHS for migraine prevention. Medications: New magnesium oxide 400 mg PO DAILY 30 days 30 caps 2RF Coding Level of Care Code Est Pt Level 4 (35082) Diagnoses Chronic migraine without aura G43.709 Obstructive sleep apnea syndrome G47.33 Sleep apnea type: obstructive
[2023-08-17 11:47] VITALS: BP 120/80; PULSE 106; O2SAT 97; BMI 57.0
== END 2023-08-17 12:05 | disposition home or self-care (01) ==
PROVIDERS: PCP Internal Medicine; Visit Provider Nurse Practitioner Family
DX: G43.709 Chronic migraine without aura, not intractable, without status migrainosus (principal); G47.33 Obstructive sleep apnea (adult) (pediatric)
CPT/HCPCS: 99214

== ENCOUNTER → 2023-08-17 11:20 | Outpatient (BNVA) | payer OTHER, SELFPAY | PROVIDERS: PCP Internal Medicine; Visit Provider Nurse Practitioner Family | DX: G43.709 Chronic migraine without aura, not intractable, without status migrainosus (principal); G47.33 Obstructive sleep apnea (adult) (pediatric) | CPT/HCPCS: 99212 ==

== ENCOUNTER 2023-08-18 14:20 | Outpatient (AMB) | payer OTHER, SELFPAY ==
--- NOTE | 2023-08-18 14:06 | MHC.AMNUTRGE ---
Intake VS Expanded 08/18/23 14:18 Height 5 ft 2 in Weight 283 lb BMI 51.8 Intake Visit Reasons: VIDEO Initial Nutrition [employer] Main Line Required: No Allergies morphine [MORPHINE] Allergy (Intermediate, Verified 08/17/23 11:46) WBC ELEVATED/ N/V shellfish derived [SHELLFISH DERIVED] Allergy (Intermediate, Verified 08/17/23 11:46) HIVES iodine [IODINE] Allergy (Mild, Verified 08/17/23 11:46) RASH duloxetine Adverse Reaction (Intermediate, Verified 08/17/23 11:46) vomiting HPI Nutrition Presentation Reason for consult elevated BMI Diet Assmnt Details I don't know why I keep gaining . We discussed some of the dietary habits that may be contributing, as well as her thyroid issues . Pt reports over the years, Fibromyalgia getting worse . pt states sticking to surgeons nutrition plan, no questions or concerns. mild hunger but doesn't feel like this is of concern. Reports 4-5 years ago ETOH abuse , also reports hx is PTSD and isolation SWL online classes: none Previous weight loss methods attempted [facility] 2021 Dietary counseling reduction Who buys your food self Who prepares/cooks your food self Meal frequency regular: dinner ( large rice, beans, meat ) and never: breakfast and lunch Lifestyle Eating out rarely or never Reads food labels No Food frequency Fruit: occasionally, Vegetables: occasionally, Grains/pasta/breads/cereal (carbs): daily, Meats/poultry/fish (protein): daily, Meat substitutes/nuts/seeds/legumes: daily, Processed foods/meats: daily, Soda: daily (zero), Juice: daily (apple juice, iced tea ) and Coffee: daily (sarmad donuts or at home ) Diagnosis Nutrition problem #1 overweight/obesity As related to (etiology) #1 excess energy intake and physical inactivity As evidenced by (sign/symptom) #1 high BMI Monitoring/Goals Nutrition problem monitoring total energy intake, level of knowledge/skill, total PRO intake, total CHO intake and weight Learning/Education Readiness to learn fair Stages of change action Most Recent Diabetes Results: Cholesterol 134 mg/dL (<200) 07/30/23 HDL Cholesterol 46 mg/dL (>40) 07/30/23 Triglycerides 106 mg/dL (<150) 07/30/23 Creatinine 1.00 mg/dL (0.5-1.4) 07/30/23 Blood Urea Nitrogen 15 mg/dL (9-16) 07/30/23 Sodium 137 mmol/L (135-145) 07/30/23 Potassium 4.0 mmol/L (3.3-5.1) 07/30/23 Chloride 106 mmol/L (96-108) 07/30/23 Carbon Dioxide 22 mmol/L (22-29) 07/30/23 Calcium 8.7 mg/dL (8.4-10.2) 07/30/23 AST 62 U/L (5-31) H 07/30/23 ALT 94 U/L (0-31) H 07/30/23 Total Protein 8.1 g/dL (6.5-8.0) H 07/30/23 Albumin 3.7 g/dL (3.5-5.0) 07/30/23 [facility] Medical History (Updated 08/07/23 @ 16:28 by Pedro Crouch MD) Anemia Morbid obesity Hypersomnia Loud snoring Blurry vision, bilateral Chronic migraine without aura PTSD (post-traumatic stress disorder) Bipolar depression Depression Morbid obesity with BMI of 45.0-49.9, adult Migraine Bilateral foot pain Fibromyalgia History of thyroid cancer Smoker Papillary thyroid carcinoma Post-surgical hypothyroidism Bilateral lower extremity edema Elevated LFTs Anxiety Asthma Hypothyroidism Cervical lymphadenopathy Vitamin D deficiency Thyroid cancer Surgical History History of surgery Hx of lymph node biopsy Hx of total thyroidectomy (~05/2020) Hx of section Hx of cholecystectomy Family History Father Diabetes Asthma Hypertension Mother Diabetes Hypertension Multiple sclerosis Daughter No problems noted. Daughter No problems noted. Daughter No problems noted. Daughter Deaf Asthma Daughter Deaf Son No problems noted. Son Asthma Son No problems noted. Social History Household Members: Family Household Members Other:: is recenlty - has 8 children_(8-18) Housing: Apartment Alcohol intake: former Patient Tobacco Use Status: Former Tobacco user Quit Date: 01/05/22 Tobacco use type: Cigarette Years Smoked: 20 years e-Cigarette/Vaping Use: Currently Using Second Hand Smoke Exposure: Yes service: No Current occupational status: unemployed Current occupational exposures/hazards: No Cognitive needs: No Hearing needs: No Vision needs: No Female Reproductive History Menstrual Age of Menarche: 12 Assessment & Plan Assessment & Plan (1) Morbid obesity: Code(s): E66.01 - Morbid (severe) obesity due to excess calories Plan see below Patient Instructions: pt may be appropriate in the future after she has completed classes and actively participated in the program for an extended period of time. Telehealth Telehealth Location of provider rendering services: other (home address, [facility] ) Location of patient: address on file Patient Identification confirmed using: Name, : Yes Telehealth method: voice only Patient verbally consented to treatment: Yes Patient verbally consented to billing insurance company: Yes Patient informed of any privacy concerns related to visit: Yes Minutes spent on Phone/Video with Pt.: 30 Coding Level of Care Code Nutr Indiv Intake (21465) Diagnoses Morbid obesity E66.01 Time Spent (min) 30
[2023-08-18 14:18] VITALS: BMI 51.8
== END 2023-08-18 14:26 | disposition home or self-care (01) ==
LOC: HO.HBS 14:21
PROVIDERS: PCP Internal Medicine; Visit Provider Dietitian, Registered
DX: E66.01 Morbid (severe) obesity due to excess calories (principal)

== ENCOUNTER → 2023-08-18 14:20 | Outpatient (BNVA) | payer OTHER, SELFPAY | PROVIDERS: PCP Internal Medicine; Visit Provider Dietitian, Registered | DX: E66.01 Morbid (severe) obesity due to excess calories (principal); Z71.3 Dietary counseling and surveillance; Z68.43 Body mass index [BMI] 50.0-59.9, adult | CPT/HCPCS: 97802 ==

== ENCOUNTER 2023-08-29 11:11 | Outpatient (AMB) | payer OTHER, SELFPAY ==
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
== END 2023-08-29 11:44 | disposition home or self-care (01) ==
LOC: HO.HBST 11:11
PROVIDERS: PCP Internal Medicine; Visit Provider Counselor Mental Health
DX: F43.10 Post-traumatic stress disorder, unspecified (principal); F31.9 Bipolar disorder, unspecified
CPT/HCPCS: 90791

== ENCOUNTER → 2023-08-29 11:11 | Outpatient (BNVA) | payer OTHER, SELFPAY | PROVIDERS: PCP Internal Medicine; Visit Provider Counselor Mental Health ==

== ENCOUNTER → 2023-08-31 08:11 | Day surgery (SDC) | payer OTHER, SELFPAY | PROVIDERS: PCP Internal Medicine; Visit Provider Surgery | DX: K21.9 Gastro-esophageal reflux disease without esophagitis (principal); Z53.29 Procedure and treatment not carried out because of patient's decision for other reasons; E66.01 Morbid (severe) obesity due to excess calories ==

== ENCOUNTER 2023-09-02 07:34 | Outpatient (AMB) | payer OTHER, SELFPAY ==
--- NOTE | 2023-09-02 09:47 | A.OFFVIS_ITS ---
Intake VS Expanded 09/02/23 09:48 Height 5 ft 2 in Weight 293 lb 1 oz BMI 53.6 Body Fat % 57.4 Body Fat Mass 168.2 Fat Free Mass 124.8 Visceral Fat Rating 21.8 Body Water % 34.3 Body Water Mass 100.5 Intake Visit Reasons: TV Follow Up SWL Allergies morphine [MORPHINE] Allergy (Intermediate, Verified 08/17/23 11:46) WBC ELEVATED/ N/V shellfish derived [SHELLFISH DERIVED] Allergy (Intermediate, Verified 08/17/23 11:46) HIVES iodine [IODINE] Allergy (Mild, Verified 08/17/23 11:46) RASH duloxetine Adverse Reaction (Intermediate, Verified 08/17/23 11:46) vomiting HPI TV Follow Up SWL HPI Details Start time: 9.26am, End time: 9.56am ?I spent 25 minutes speaking with the patient on the phone plus an additional 5 minutes reviewing and updating records for a total of 30 minutes HPI Comments History of Present Illness Details Overall weight loss: 16.8lbs, or 5.42% TBWL Is doing one Pure protein shake with HALF scoop in 8oz almond milk, one Pure protein shake (one scoop in almond milk), one Zone Perfect protein bar and one meal (10 forks of protein and 10 forks of salad or vegetables) Exercise: none due to fibromyalgia but did purchase a glider at home [facility] Medical History (Updated 08/07/23 @ 16:28 by Pedro Crouch MD) Anemia Morbid obesity Hypersomnia Loud snoring Blurry vision, bilateral Chronic migraine without aura PTSD (post-traumatic stress disorder) Bipolar depression Depression Morbid obesity with BMI of 45.0-49.9, adult Migraine Bilateral foot pain Fibromyalgia History of thyroid cancer Smoker Papillary thyroid carcinoma Post-surgical hypothyroidism Bilateral lower extremity edema Elevated LFTs Anxiety Asthma Hypothyroidism Cervical lymphadenopathy Vitamin D deficiency Thyroid cancer Surgical History History of surgery Hx of lymph node biopsy Hx of total thyroidectomy (~05/2020) Hx of section Hx of cholecystectomy Family History Father Diabetes Asthma Hypertension Mother Diabetes Hypertension Multiple sclerosis Daughter No problems noted. Daughter No problems noted. Daughter No problems noted. Daughter Deaf Asthma Daughter Deaf Son No problems noted. Son Asthma Son No problems noted. Social History Household Members: Family Household Members Other:: is recenlty - has 8 children_(8-18) Housing: Apartment Alcohol intake: former Patient Tobacco Use Status: Former Tobacco user Quit Date: 01/05/22 Tobacco use type: Cigarette Years Smoked: 20 years e-Cigarette/Vaping Use: Currently Using Second Hand Smoke Exposure: Yes service: No Current occupational status: unemployed Current occupational exposures/hazards: No Cognitive needs: No Hearing needs: No Vision needs: No Female Reproductive History Menstrual Age of Menarche: 12 Assessment & Plan Assessment & Plan (1) Morbid obesity: Code(s): E66.01 - Morbid (severe) obesity due to excess calories Plan: 1. Change nutritional plan to 1 Pure protein (buy at [employer], [employer], [employer], [facility]) shake (1/2 scoop in 8oz low fat unsweetened almond milk each) at 9am-11am, one more Pure protein shake with ONE scoop in 8oz almond milk at 12pm-2pm, 1 protein bar (Zone Perfect bar, buy at [employer], ?[employer], [employer], or [employer]) at 3pm-5pm, dinner at 6pm (10 forks of protein and 10 forks of salad/vegetables) AND ONE more protein bar after dinner at 9pm-11pm per day. 2. Use the glider daily for 150 calories per work-out and do two sessions per day, one in the morning and one in the afternoon. Goal is to burn 2000 calories per week on the glider. 3. Please send weight measurements weekly on Saturdays Telehealth Telehealth Location of provider rendering services: practice address Location of patient: address on file Patient Identification confirmed using: Name, : Yes Telehealth method: voice only Patient verbally consented to treatment: Yes Patient verbally consented to billing insurance company: Yes Patient informed of any privacy concerns related to visit: Yes Minutes spent on Phone/Video with Pt.: 30 Coding Level of Care Code Tele Est Pt Level 4 (66784) Diagnoses Morbid obesity E66.01 Time Spent (min) 30
[2023-09-02 09:48] VITALS: BMI 53.6
== END 2023-09-02 09:57 | disposition home or self-care (01) ==
PROVIDERS: PCP Internal Medicine; Visit Provider Surgery
DX: E66.01 Morbid (severe) obesity due to excess calories (principal)
CPT/HCPCS: 99214

== ENCOUNTER → 2023-09-02 07:34 | Outpatient (BNVA) | payer OTHER, SELFPAY | PROVIDERS: PCP Internal Medicine; Visit Provider Surgery ==

== ENCOUNTER 2023-09-21 09:20 | Day surgery (SDC) | payer OTHER, SELFPAY ==
[2023-09-21 10:08] VITALS: BMI 53.2
--- NOTE | 2023-09-21 10:29 | MHC.SHP ---
Pre-Procedural Eval Section A - 24 Hr Update-Section A only Date of Service: 09/21/23 The patient is an INPATIENT: No The patient has been examined within 24 hours of the surgical procedure. The History & Physical has been completed within 30 days and I have reviewed it.: Yes Section B - Complete if H&P > 30 days Chief Complaint: obesity Details of Present Illness: GERD Relevant Family History (Specify if Yes): No Relevant Social History: None Present Medications: None Medical History: No relevant PMH History of Previous Operations: No relevant previous surgery Allergies: Allergies Allergy/AdvReac Type Severity Reaction Status Date / Time morphine [MORPHINE] Allergy Intermediate WBC Verified 09/21/23 10:28 ELEVATED/ N/V shellfish derived Allergy Intermediate HIVES Verified 09/21/23 10:28 [SHELLFISH DERIVED] iodine [IODINE] Allergy Mild RASH Verified 09/21/23 10:28 duloxetine AdvReac Intermediate vomiting Verified 09/21/23 10:28 Review of Systems Sugical H&P ROS: Negative: Constitution, Cardiovascular, Respiratory, Neurological, Psychiatric, Hem-Onc, Allergic/Immunologic, Gastrointestinal, Genitourinary, Musculoskeletal, Integumentary, Endocrine and Eyes/Ears/Nose/Throat Exam Surgical H&P Exam: Normal: HEENT, Normal: Heart, Normal: Lungs, Normal: Extremities, Normal: Abdomen, Normal: Skin and Normal: Neurological Plan Diagnosis/Plan: Unchanged (EGD to assess etiology of GERD. Risks of bleeding and perforation were discussed with the patient and she is in agreement with the plan.) I have reviewed the history and physical and performed a pertinent physical examination on my patient. No changes have occurred unless specified. Time Spent With Patient Time: Total time managing care of this patient today ____ minutes.
[2023-09-21 10:30] VITALS: BP 123/74; PULSE 105; RESP 18; TEMP 36.5; O2SAT 96
[2023-09-21] MEDS: Lactated Ringers 1,000 ML 80 ML IVCONT (10:31)
--- NOTE | 2023-09-21 10:31 | P.BOP_ITS ---
Brief Operative Note Date of Service: 09/21/23 Pre-op diagnosis: GERD Post-op diagnosis: same Procedure: PROCEDURE DATE: 09/21/2023 PREOPERATIVE DIAGNOSIS: GERD POSTOPERATIVE DIAGNOSIS: ?Same as above. 1) small hiatal hernia PROCEDURE: [id number] with biopsies Surgeon: Rosey Crouch M.D.. Ph.D. Almond Cutting Machine Tender: None ? Anesthesia: IV sedation Estimated blood loss: ?Minimal FINDINGS AND PROCEDURE: ? OPERATIVE INDICATIONS: ?The patient is a 38 year old female known to me who is interested in bariatric surgery. The patient has GERD. Based on this information I recommended an upper endoscopy to evaluate the patient's symptoms. Risks and complications of the surgery were discussed with the patient in advance particularly the possibility of perforation or bleeding that may require surg ical intervention. The patient understood the risks and was in agreement with the plan. ? PROCEDURE: After informed consent was obtained by the patient, the patient was ?transferred to the Operating Room and was placed in the supine position.? After successful induction of IV sedation, a mouth block was inserted and the patient was placed in the left lateral decubitus position. An upper endoscopy was performed next, the oropharynx and esophagus appeared within the normal limits. There was a small 2-3cm hiatal hernia. The z-line was smooth. One biopsy was obtained from the GE junction. The stomach was entered and it appeared to be of normal size. There was no gastritis. There was no stricture or ulcer. A biopsy was obtained from the gastric fundus and the antrum. No significant bleeding was noted from any of the biopsy sites. The scope was then advanced into the duodenum which appeared to be normal as well. Retroflexion of the scope confirmed a small diaphragmatic hernia. At that point the duodenum ?and the stomach were decompressed and the scope was withdrawn from the patient's mouth. The patient extubated and was transferred in stable condition to the Recovery Room for further care. I was present and performed all steps of the procedure. There were no residents to assist with this case. Ellis Crouch M.D., Ph.D. Surgeon: Pedro Crouch MD Anesthesia: MAC Was an Almond Cutting Machine Tender used for this Procedure?: No Estimated blood loss (mL): 0 IV fluids (mL): 400 Urine output (mL): 0 (No [place] to record output) Pathology: other (1) antrum x1, 2) gastric fundus x1, 3) GE junction x1) Condition: stable Disposition: PACU
--- NOTE | 2023-09-21 10:43 | HO.ANESPROP2 ---
HPI - Anesthesia Eval Consult details Narrative: 38 yo female patient for EGD PMFSH Active Problems Active Problems: All Active Problems Vitamin B1 deficiency (Acute) Sleep apnea (Acute) Vision abnormalities (Acute) Speech impediment (Acute) Urinary frequency (Acute) Paresthesia of both feet (Acute) Abnormal uterine bleeding (AUB) (Acute) Myalgia (Acute) Suicidal ideation (Acute) Acid reflux (Acute) Vitamin B12 deficiency (Acute) Vitamin A deficiency (Acute) Hepatitis C (Acute) MISAEL (obstructive sleep apnea) (Acute). 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 (Acute) Hepatitis C antibody test positive (Acute) Trichomonas infection (Acute) LGSIL on Pap smear of cervix (Acute) Eczema (Acute) Hx of abnormal cervical Pap smear (Acute) Potential exposure to STD (Acute) Left breast mass (Acute) Breast pain, left (Acute) Environmental allergies (Acute) Asthma exacerbation (Acute) COVID-19 virus infection (Acute) Morbid obesity with BMI of 40.0-44.9, adult (Acute) Paresthesia (Acute) Edema (Acute) Fatigue (Acute) Body aches (Acute) Anemia (Acute) Morbid obesity (Acute) BMI 53.2 Hypersomnia (Acute) Loud snoring (Acute) Blurry vision, bilateral (Acute) Chronic migraine without aura (Acute) PTSD (post-traumatic stress disorder) (Acute) Bipolar depression (Acute) Depression (Acute) Morbid obesity with BMI of 45.0-49.9, adult (Acute) Migraine (Acute) Bilateral foot pain (Acute) Fibromyalgia (Acute) History of thyroid cancer (Acute) Smoker (Acute) Papillary thyroid carcinoma (Acute) Post-surgical hypothyroidism (Acute) Bilateral lower extremity edema (Acute) Elevated LFTs (Acute) Anxiety (Acute) Asthma (Acute) Hypothyroidism (Acute) Cervical lymphadenopathy (Acute) Vitamin D deficiency (Acute) Thyroid cancer (Acute) Past Medical History Medical History Anemia Morbid obesity Hypersomnia Loud snoring Blurry vision, bilateral Chronic migraine without aura PTSD (post-traumatic stress disorder) Bipolar depression Depression Morbid obesity with BMI of 45.0-49.9, adult Migraine Bilateral foot pain Fibromyalgia History of thyroid cancer Smoker Papillary thyroid carcinoma Post-surgical hypothyroidism Bilateral lower extremity edema Elevated LFTs Anxiety Asthma Hypothyroidism Cervical lymphadenopathy Vitamin D deficiency Thyroid cancer Family History Family History Father Diabetes Asthma Hypertension Mother Diabetes Hypertension Multiple sclerosis Daughter No problems noted. Daughter No problems noted. Daughter No problems noted. Daughter Deaf Asthma Daughter Deaf Son No problems noted. Son Asthma Son No problems noted. Family history of problems with anesthesia: No Surgical History Surgical History Hx of tubal ligation History of surgery Hx of lymph node biopsy Hx of total thyroidectomy (~05/2020) Hx of section Hx of cholecystectomy History of Problems with Anesthesia: No Social History Social History Household Members: Family Household Members Other:: is recenlty - has 8 children_(8-18) Housing: Apartment Alcohol intake: former Patient Tobacco Use Status: Former Tobacco user Quit Date: 01/05/22 Tobacco use type: Cigarette Years Smoked: 20 years e-Cigarette/Vaping Use: Currently Using Second Hand Smoke Exposure: Yes Use of substances other than those prescribed or required for medical reasons: No Are you DNR?: No Advance Directives: No Advance Directives Information Provided: Yes service: No Current occupational status: unemployed Current occupational exposures/hazards: No Cognitive needs: No Hearing needs: No Vision needs: No Meds Allergies Allergy/AdvReac Type Severity Reaction Status Date / Time morphine [MORPHINE] Allergy Intermediate WBC Verified 09/21/23 10:28 ELEVATED/ N/V shellfish derived Allergy Intermediate HIVES Verified 09/21/23 10:28 [SHELLFISH DERIVED] iodine [IODINE] Allergy Mild RASH Verified 09/21/23 10:28 duloxetine AdvReac Intermediate vomiting Verified 09/21/23 10:28 Active Medications: Current Medications Lactated Ringer's (Lr) 1,000 mls @ 80 mls/hr IVCONT .[id number] LYNNETTE Last Admin: 09/21/23 10:31 Dose: 80 mls/hr Home Medications ?Medication ?Instructions ?Recorded ?Confirmed ?Last Taken ?Type clonazepam 1 mg tablet (Klonopin) 1 mg PO DAILY 05/22/20 07/18/23 Unknown History aripiprazole 10 mg tablet 10 mg PO DAILY 09/21/23 09/21/23 09/21/23 History Exam Height,Weight and Vital Signs: Height 5 ft 2 in Weight 131.995 kg Last Vital Signs Temp 97.7 F 09/21/23 10:30 Pulse 105 H 09/21/23 10:30 Resp 18 09/21/23 10:30 BP 123/74 09/21/23 10:30 Pulse Ox 96 09/21/23 10:30 O2 Del Method Room Air 09/21/23 10:30 Airway Mallampati Class: III TM Dist: >3cm Neck ROM: Full Loose/Missing/Broken Teeth: Yes (Loose tooth top right back, missing tooth top right back, broken tooth bottom left back) Heart: RRR Lungs: Bilateral wheees. For respiratory treatment Assessment and Plan Assessment Anesthesia Assessment: Anesthesia Plan Discussed and Chart Reviewed Final Anesthetic Review Family History of Problems with Anesthesia: No History of Problems with Anesthesia: No NPO: Yes ASA Class: III Final Preanesthetic Review: No Changes in Pt Med Stat, Meds/Allgs Chart Reviewed, Consent Obtained/Reviewed and Anes Risks/Benef Reviewed Patient Risk: Intermediate Procedure Risk: Low Assessment/Block/Sedation in SS: Assess/Block/Sedation-SS Anesthetic Plan Anesthetic Plan: MAC: Disposition: Standard PACU
[2023-09-21] MEDS: Albuterol Sulfate (0.083%) 2.5 MG/3 ML VIAL.NEB INHALE (11:04)
[2023-09-21 11:05] VITALS: PULSE 104; RESP 18; O2SAT 98
[2023-09-21 11:37] VITALS: BP 111/84; PULSE 131; RESP 20; TEMP 36.6; O2SAT 93
[2023-09-21 11:52] VITALS: BP 122/89; PULSE 122; RESP 20; O2SAT 97
[2023-09-21 12:02] VITALS: BP 105/70; PULSE 116; RESP 20; TEMP 36.4; O2SAT 97
== END 2023-09-21 12:40 | disposition home or self-care (01) ==
PROVIDERS: PCP Internal Medicine; Visit Provider Surgery
PROC: 0DJ08ZZ Inspection of Upper Intestinal Tract, Via Natural or Artificial Opening Endoscopic (ICD-10-PCS; CPT 43235; principal; 2023-09-21 12:00)
DX: K21.9 Gastro-esophageal reflux disease without esophagitis (principal); E66.01 Morbid (severe) obesity due to excess calories; Z68.43 Body mass index [BMI] 50.0-59.9, adult; K44.9 Diaphragmatic hernia without obstruction or gangrene; M79.7 Fibromyalgia; G43.709 Chronic migraine without aura, not intractable, without status migrainosus; D64.9 Anemia, unspecified; E55.9 Vitamin D deficiency, unspecified; E89.0 Postprocedural hypothyroidism; Z85.850 Personal history of malignant neoplasm of thyroid; J45.909 Unspecified asthma, uncomplicated; Z79.899 Other long term (current) drug therapy; Z88.5 Allergy status to narcotic agent; Z88.8 Allergy status to other drugs, medicaments and biological substances; Z91.041 Radiographic dye allergy status; Z98.890 Other specified postprocedural states; Z87.891 Personal history of nicotine dependence; Z56.0 Unemployment, unspecified
CPT/HCPCS: 43239; 88305; 88313; 88342; 94640; J1596; J2250; J2704

== ENCOUNTER → 2023-09-21 09:20 | Outpatient (BNV) | payer OTHER, SELFPAY | PROVIDERS: PCP Internal Medicine; Visit Provider Surgery | DX: K44.9 Diaphragmatic hernia without obstruction or gangrene (principal) | CPT/HCPCS: 43239 ==

== ENCOUNTER 2023-10-07 08:03 | Outpatient (AMB) | payer OTHER, SELFPAY ==
--- NOTE | 2023-10-07 16:36 | A.OFFVIS_ITS ---
VS Expanded 10/07/23 16:37 Height 5 ft 2 in Weight 282 lb 9 oz BMI 51.7 Body Fat % 56.7 Body Fat Mass 160.4 Fat Free Mass 122.6 Visceral Fat Rating 20.8 Body Water % 34.7 Body Water Mass 98.1 Basal Metabolic Rate/Score 1,923 Intake Visit Reasons: TV Follow Up SWL Allergies morphine [MORPHINE] Allergy (Intermediate, Verified 09/21/23 10:28) WBC ELEVATED/ N/V shellfish derived [SHELLFISH DERIVED] Allergy (Intermediate, Verified 09/21/23 10:28) HIVES iodine [IODINE] Allergy (Mild, Verified 09/21/23 10:28) RASH duloxetine Adverse Reaction (Intermediate, Verified 09/21/23 10:28) vomiting HPI HPI TV Follow Up SWL: Details: Start time: 12.30pm, End time: 1pm ?I spent 25 minutes speaking with the patient on the phone plus an additional 5 minutes reviewing and updating records for a total of 30 minutes HPI Comments Details: Overall weight loss: 27lbs, or 8.71% TBWL Is doing one Pure protein shake with 1/2 scoop in 8oz almond milk, one Pure protein shake with one scoop in almond milk, one Zone Perfect protein bar and one meal (10 forks of protein and 10 forks of salad or vegetables Exercise: Glider 300 calories x2/week PFSH Medical History Anemia Morbid obesity Hypersomnia Loud snoring Blurry vision, bilateral Chronic migraine without aura PTSD (post-traumatic stress disorder) Bipolar depression Depression Morbid obesity with BMI of 45.0-49.9, adult Migraine Bilateral foot pain Fibromyalgia History of thyroid cancer Smoker Papillary thyroid carcinoma Post-surgical hypothyroidism Bilateral lower extremity edema Elevated LFTs Anxiety Asthma Hypothyroidism Cervical lymphadenopathy Vitamin D deficiency Thyroid cancer Surgical History Hx of tubal ligation History of surgery Hx of lymph node biopsy Hx of total thyroidectomy (~05/2020) Hx of section Hx of cholecystectomy Family History Father Diabetes Asthma Hypertension Mother Diabetes Hypertension Multiple sclerosis Daughter No problems noted. Daughter No problems noted. Daughter No problems noted. Daughter Deaf Asthma Daughter Deaf Son No problems noted. Son Asthma Son No problems noted. Social History Household Members: Family Household Members Other:: is recenlty - has 8 children_(8-18) Housing: Apartment Alcohol intake: former Patient Tobacco Use Status: Former Tobacco user Quit Date: 01/05/22 Tobacco use type: Cigarette Years Smoked: 20 years e-Cigarette/Vaping Use: Currently Using Second Hand Smoke Exposure: Yes service: No Current occupational status: unemployed Current occupational exposures/hazards: No Cognitive needs: No Hearing needs: No Vision needs: No Female Reproductive History Menstrual Age of Menarche: 12 Telehealth Telehealth Telehealth Platform: Telephone Location of provider rendering services: practice address Location of patient: address on file Patient Identification confirmed using: Name, : Yes Telehealth method: voice only Patient verbally consented to treatment: Yes Patient verbally consented to billing insurance company: Yes Patient informed of any privacy concerns related to visit: Yes Minutes spent on Phone/Video with Pt.: 30 Assessment & Plan Assessment & Plan (1) Morbid obesity: Code(s): E66.01 - Morbid (severe) obesity due to excess calories Category: Medical Plan: 1. Plan for lap sleeve gastrectomy including upper GI endoscopy. All tests has been completed and reviewed and the patient is cleared for the surgery. ?If diaphragmatic or ventral hernias are present at time of surgery, these will be repaired laparoscopically as well. Risks and complications were discussed in detail including possible conversion to an open procedure, anastomotic leak, bleeding requiring transfusion, small bowel obstruction, , DVT and pulmonary embolism, cardiac, or pulmonary complications, as quenching machine operator complications such as anastomotic ulcer, insufficient weight loss and vitamin deficiencies. I emphasized the importance of close follow-up, adherence to instructions and good communication. So far she has proven to be an excellent communicator and very compliant with all our directions accomplishing a great weight loss. I believe that she is an excellent candidate and she is ready. 2. The patient participated in a structured preoperative lifestyle intervention program supervised by a physician the 2.5 months preceding the surgical procedure. The lifestyle intervention included a structured nutritional plan with a specific daily protein intake goal, an exercise plan with a 2000 calorie burn weekly goal, weekly behavior modification guidance and completion of eight 1-hour online nutritional classes and passing successfully the corresponding quizzes. Adherence to preoperative care plan was demonstrated by completing an extensive preoperative work-up. Program participation was demonstrated by completing 6 visits with our medical team and by sharing weekly weight measurements weekly for 2.5 consecutive months via an approved body composition scale. Compliance to the lifestyle intervention was demonstrated by achieving a 27lbs weight-loss or 8.71% total body weight loss (TBWL). No medications were used to achieve this weight loss. In our published experience an over 7% preoperative TBWL, achieved by meeting the diet and exercise goals of our program improves surgical outcomes, reduces the potential for surgical complications, and predicts a statistically significant higher weight loss up to 6 years postoperatively. 3. Continue present nutritional plan of one Pure protein shake with 1/2 scoop in 8oz almond milk, one Pure protein shake with one scoop in almond milk, one Zone Perfect protein bar and one meal (10 forks of protein and 10 forks of salad or vegetables 4. Exercise: continue Glider 300 calories per day but increase it to daily 5. Continue to send me weight measurements weekly
[2023-10-07 16:37] VITALS: BMI 51.7
== END 2023-10-07 16:46 | disposition home or self-care (01) ==
LOC: HO.HBS 08:03
PROVIDERS: PCP Internal Medicine; Visit Provider Surgery
DX: E66.01 Morbid (severe) obesity due to excess calories (principal)
CPT/HCPCS: 99214

== ENCOUNTER → 2023-10-07 08:03 | Outpatient (BNVA) | payer OTHER, SELFPAY | PROVIDERS: PCP Internal Medicine; Visit Provider Surgery ==

== ENCOUNTER 2023-10-27 11:03 | Outpatient (REF) | payer OTHER, SELFPAY ==
[2023-10-27 12:32] LABS: Appearance Urine Clear; Color Urine Yellow; Glucose Urine UA Negative (Negative); Leukocyte Esterase Urine Negative (Negative); Nitrite Urine Negative (Negative); Urine Blood Negative (Negative); Urine Ketones Negative (Negative); Urine Protein Negative (Neg-Trace)
[2023-10-27 13:10] LABS: Erythrocyte Sedimentation Rate 23 MM/HR (0-20)
[2023-10-27 18:55] LABS: MANUAL DIFF FLAG NO
[2023-10-27 18:59] LABS: Basophils Absolute Auto 0.1 X10*3/uL (0.0-0.2); Basophils Percent Auto 0.7 % (0-2); Eosinophils Absolute Auto 0.6 X10*3/uL (0.0-0.4); Eosinophils Percent Auto 5.6 % (0-4); Hematocrit 38.6 % (37.0-47.0); Hemoglobin 12.3 g/dl (12.0-16.0); Lymphocytes Absolute Auto 2.4 X10*3/uL (1.2-4.9); Lymphocytes Percent Auto 24.4 % (20-40); Mean Corpuscular HGB Conc 31.9 g/dl (31.0-35.0); Mean Corpuscular Hemoglobin 27.4 pg (27.0-33.0); Mean Platelet Volume 9.7 fL (9.4-12.3); Monocytes Absolute Auto 0.8 X10*3/uL (0.1-1.2); Monocytes Percent Auto 7.8 % (2-11); Neutrophils Percent Auto 60.5 % (45-73); Platelet Count 382 X10*3/uL (160-400); Red Blood Count 4.49 X10*6/uL (4.20-5.50); Red Cell Distribution Width 17.8 % (11.0-16.0); White Blood Count 9.9 X10*3/uL (4.8-10.8)
== END 2023-10-27 11:04 | disposition home or self-care (01) ==
LOC: HO.LAB 11:03
PROVIDERS: PCP Internal Medicine; Visit Provider Internal Medicine
DX: D64.9 Anemia, unspecified (principal); R30.0 Dysuria; M79.7 Fibromyalgia
CPT/HCPCS: 36415; 81003; 85025; 85652

== ENCOUNTER 2023-10-28 07:41 | Outpatient (AMB) | payer OTHER, SELFPAY ==
--- NOTE | 2023-10-28 09:11 | A.OFFVIS_ITS ---
VS Expanded 10/28/23 10:05 Height 5 ft 2 in Weight 276 lb 4 oz BMI 50.5 Body Fat % 56 Body Fat Mass 154.7 Fat Free Mass 121.7 Visceral Fat Rating 20 Body Water % 34.9 Body Water Mass 94.4 Basal Metabolic Rate/Score 1,896 Intake Visit Reasons: TV Pre Op LSG 11/03/23 Allergies morphine [MORPHINE] Allergy (Intermediate, Verified 10/28/23 10:06) WBC ELEVATED/ N/V shellfish derived [SHELLFISH DERIVED] Allergy (Intermediate, Verified 10/28/23 10:06) HIVES iodine [IODINE] Allergy (Mild, Verified 10/28/23 10:06) RASH duloxetine Adverse Reaction (Intermediate, Verified 10/28/23 10:06) vomiting Medication List - Last Reconciled 10/28/23 by Pedro Crouch MD aripiprazole 10 mg PO DAILY bupropion HCl XL 300 mg PO QAM 30 days kpjczeajmp-yelomagwejkmz-yqcl 50-325-40 mg 1 tab PO Q6-8H PRN 30 days cholecalciferol (vitamin D3) 125 mcg PO DAILY clonazepam (Klonopin) 1 mg PO DAILY fluoxetine 20 mg PO DAILY 30 days fluticasone propion-salmeterol 500-50 mcg/dose (Advair Diskus) 1 inh inhalation BID gabapentin 800 mg PO QID 30 days hydroxyzine HCl 50 mg PO TID PRN 30 days ipratropium-albuterol 0.5 mg-3 mg(2.5 mg base)/3 mL 3 mL inhalation Q4-6H PRN 30 days iron,carbonyl-vitamin C 65 mg iron- 125 mg (Vitron-C) 1 tab PO DAILY levothyroxine 150 mcg PO DAILY 90 days magnesium oxide 400 mg PO DAILY 30 days mecobalamin (vitamin B12) 1,000 mcg sublingual DAILY [NEBULIZER Use as directed as needed] omalizumab (Xolair) 300 mg subcut Q2W 28 days omeprazole 40 mg PO DAILY 30 days ondansetron 4 mg PO Q12H pantoprazole 40 mg PO DAILY polyethylene glycol 3350 17 grams PO DAILY sucralfate 10 mL PO BID thiamine HCl (vitamin B1) 100 mg PO DAILY tizanidine 4 mg PO TID PRN 30 days topiramate 50 mg PO BID 30 days Ventolin HFA 90 mcg/actuation (albuterol sulfate) 2 puffs inhalation Q4-6H PRN NS vitamin A palmitate 10,000 units PO DAILY HPI HPI TV Pre Op LSG 11/03/23: Details: Start time: 9.43am, End time: 10.13am ?I spent 25 minutes speaking with the patient on the phone plus an additional 5 minutes reviewing and updating records for a total of 30 minutes HPI Comments Details: Overall weight loss: 33.5lbs, or 10.8% TBWL Is doing one Pure protein shake with HALF scoop in 8oz almond milk, one Pure protein shake (one scoop in almond milk), one Zone Perfect protein bar and one meal (10 forks of protein and 10 forks of salad or vegetables) Exercise: none due to fibromyalgia but did purchase a glider at home [facility] Medical History (Updated 10/26/23 @ 12:40 by Rohini Pool RN) MISAEL (obstructive sleep apnea) GERD (gastroesophageal reflux disease) Anemia Morbid obesity Hypersomnia Loud snoring Blurry vision, bilateral Chronic migraine without aura PTSD (post-traumatic stress disorder) Bipolar depression Depression Morbid obesity with BMI of 45.0-49.9, adult Migraine Bilateral foot pain Fibromyalgia History of thyroid cancer Smoker Papillary thyroid carcinoma Post-surgical hypothyroidism Bilateral lower extremity edema Elevated LFTs Anxiety Asthma Hypothyroidism Cervical lymphadenopathy Vitamin D deficiency Thyroid cancer Surgical History (Updated 10/26/23 @ 12:42 by Rohini Pool RN) History of esophagogastroduodenoscopy (EGD) Hx of tubal ligation History of surgery Hx of lymph node biopsy Hx of total thyroidectomy (~05/2020) Hx of section Hx of cholecystectomy Family History Father Diabetes Asthma Hypertension Mother Diabetes Hypertension Multiple sclerosis Daughter No problems noted. Daughter No problems noted. Daughter No problems noted. Daughter Deaf Asthma Daughter Deaf Son No problems noted. Son Asthma Son No problems noted. Social History (Updated 10/26/23 @ 13:11 by Rohini Pool RN) Household Members: Spouse Housing: Apartment Are you a primary career services coordinator to a significant other at home: No Do you presently have visiting nurse or other home services: No Alcohol intake: former Patient Tobacco Use Status: Former Tobacco user Quit Date: 2021 Tobacco use type: Cigarette Years Smoked: 20 e-Cigarette/Vaping Use: Currently Using Second Hand Smoke Exposure: Yes service: No Current occupational status: unemployed Current occupational exposures/hazards: No Cognitive needs: No Hearing needs: No Vision needs: No Female Reproductive History Menstrual Age of Menarche: 12 Telehealth Telehealth Telehealth Platform: Telephone Location of provider rendering services: practice address Location of patient: address on file Patient Identification confirmed using: Name, : Yes Telehealth method: voice only Patient verbally consented to treatment: Yes Patient verbally consented to billing insurance company: Yes Patient informed of any privacy concerns related to visit: Yes Minutes spent on Phone/Video with Pt.: 30 Assessment & Plan Assessment & Plan (1) Morbid obesity with BMI of 45.0-49.9, adult: Code(s): E66.01 - Morbid (severe) obesity due to excess calories; Z68.42 - Body mass index [BMI] 45.0-49.9, adult Category: Medical Plan: 1. Plan for lap sleeve gastrectomy including upper GI endoscopy. All tests has been completed and reviewed and the patient is cleared for the surgery. ?If diaphragmatic or ventral hernias are present at time of surgery, these will be repaired laparoscopically as well. Risks and complications were discussed in detail including possible conversion to an open procedure, anastomotic leak, bleeding requiring transfusion, small bowel obstruction, , DVT and pulmonary embolism, cardiac, or pulmonary complications, as intermediate complications such as anastomotic ulcer, insufficient weight loss and vitamin deficiencies. I emphasized the importance of close follow-up, adherence to instructions and good communication. So far she has proven to be an excellent communicator and very compliant with all our directions accomplishing a great weight loss. I believe that she is an excellent candidate and she is ready. 2. Preop prescriptions were provided and explained the purpose of each one. Need to be purchased preop. Start Pantoprazole now as you get it from the pharmacy, 1 pill per day. Sucralfate and Zofran are for after surgery as needed. 3. Bowel prep: please do 7 packets ?of Miralax mixing each one with a an 8oz glass of water, crystal light, gatorade zero, or propel ?on 11/01/23 and the same amount on 11/02/23. The Miralax you begin with one packet at a time in 8oz water or crystal light, gatorade zero, or propel ?as early in the day as you can and you do them back to back until you finish them. Continue the protein shakes during? the bowel prep. 4. Needs to purchase 1oz medicine cups . 5. Needs to purchase Children's liquid Tylenol for postop pain control. 6. She needs to stop all the Gabapentin as of today 10/28/23. Avoid aspirin, motrin, Advil, Aleve, Ibuprofen, Naproxyn. Tylenol is OK. 7. She needs to purchase the Celebrate 4:1 protein shakes from the hospital's gift shop. 8. Importance of adherence to postop folllow-up and recommendations was underscored and she understands that. 9. Stop food and bars as of TODAY 10/28/23 and continue with % ?Pure protein shakes (ONE scoop EACH in 8oz almond milk) at 10am-12pm, 1pm-3pm, 3pm-5pm, 5pm- 7pm and 8pm-10pm 10. No soups, broths or V8 11. The patient's?medical?history has been reviewed and they are considered low risk for post op DVT and therefore DVT prophylaxis is not considered necessary. Travel after surgery was reviewed. The patient has not disclosed any travel plans during the first 30 days after surgery and they have been advised that within the first 30 days after surgery any bus, plane, train or car travel over 2 hours in duration is contraindicated due to the possibility of developing blood clots from immobility. Any travel, needs to include periods of ambulation of 10 minutes in duration every 2 hours.? Patient was instructed to discuss any plans for travel during this period with their bariatric surgeon.? 12. Use your CPAP daily and bring it to the hospital with your mask 13. Please take at the day of surgery the following medications: NONE 14. Stop any control pills and don't use them for one month after surgery 15. Absolutely no smoking or vaping, or marijuana until the surgery and for at least the first 4 weeks. Only nicotine patches are allowed. 16. Send me weight measurements on Tuesday10/30/23 and then on 11/03/23, the day of surgery before you go to the hospital. 17. Avoid any steroids by mouth for any reason. Let me know if someone prescribes them to you 18. These instructions supersede anything else you read in the handbook, anything you watched in videos or classes or you were told by any other provider. If there is any conflict, you follow the above instructions and nothing else. Medications: New pantoprazole 40 mg PO DAILY 90 tabs 0RF K21.9 - Gastro-esophageal reflux disease without esophagitis ondansetron Only take one every 12 hours as needed if you have nausea 4 mg PO Q12H 20 tabs 0RF nausea and vomiting R11.0 - Nausea sucralfate 10 mL PO BID 600 mL 2RF K21.9 - Gastro-esophageal reflux disease without esophagitis polyethylene glycol 3350 Mix each measuring cup with 8oz of water, Crystal light, or Gatorade zero, or Propel and do 7 measuring cups on 11/01/23 and another 7 measuring cups on 11/02/23 17 grams PO DAILY 238 grams 0RF Z01.818 - Encounter for other preprocedural examination
[2023-10-28 10:05] VITALS: BMI 50.5
== END 2023-10-28 10:13 | disposition home or self-care (01) ==
LOC: HO.HBS 07:41
PROVIDERS: PCP Internal Medicine; Visit Provider Surgery
DX: E66.01 Morbid (severe) obesity due to excess calories (principal); Z68.42 Body mass index [BMI] 45.0-49.9, adult
CPT/HCPCS: 99214

== ENCOUNTER → 2023-10-28 07:41 | Outpatient (BNVA) | payer OTHER, SELFPAY | PROVIDERS: PCP Internal Medicine; Visit Provider Surgery ==

== ENCOUNTER 2023-10-28 12:51 | Outpatient (AMB) | payer OTHER, SELFPAY ==
--- NOTE | 2023-10-28 12:56 | MHC.PC.OV ---
Vital Signs 10/28/23 12:58 Height 5 ft 2 in Weight 319 lb 2 oz BMI 58.4 BP 124/68 Blood Pressure Location Lt brachial Position Sitting Intake Visit Reasons: 4mth f/u Intake Note: Patient is here to follow up on MISAEL, Asthma, Fibromylgia. Manager Cable Required: No Pharmaceutical Detailer: Not Required per policy Accompanied by: Self / Same As Patient Allergies morphine [MORPHINE] Allergy (Intermediate, Verified 10/28/23 13:28) WBC ELEVATED/ N/V shellfish derived [SHELLFISH DERIVED] Allergy (Intermediate, Verified 10/28/23 13:28) HIVES iodine [IODINE] Allergy (Mild, Verified 10/28/23 13:28) RASH duloxetine Adverse Reaction (Intermediate, Verified 10/28/23 13:28) vomiting Medication List - Last Reconciled 10/28/23 by Lavon Richardson MD aripiprazole 10 mg PO DAILY bupropion HCl XL 300 mg PO QAM 30 days nofqiramar-sbllsvessberh-edkq 50-325-40 mg 1 tab PO Q6-8H PRN 30 days cholecalciferol (vitamin D3) 125 mcg PO DAILY clonazepam (Klonopin) 1 mg PO DAILY fluoxetine 20 mg PO DAILY 30 days fluticasone propion-salmeterol 500-50 mcg/dose (Advair Diskus) 1 inh inhalation BID gabapentin 800 mg PO QID 30 days hydroxyzine HCl 50 mg PO TID PRN 30 days ipratropium-albuterol 0.5 mg-3 mg(2.5 mg base)/3 mL 3 mL inhalation Q4-6H PRN 30 days iron,carbonyl-vitamin C 65 mg iron- 125 mg (Vitron-C) 1 tab PO DAILY levothyroxine 150 mcg PO DAILY 90 days magnesium oxide 400 mg PO DAILY 30 days mecobalamin (vitamin B12) 1,000 mcg sublingual DAILY [NEBULIZER Use as directed as needed] omalizumab (Xolair) 300 mg subcut Q2W 28 days omeprazole 40 mg PO DAILY 30 days ondansetron 4 mg PO Q12H pantoprazole 40 mg PO DAILY polyethylene glycol 3350 17 grams PO DAILY sucralfate 10 mL PO BID thiamine HCl (vitamin B1) 100 mg PO DAILY tizanidine 4 mg PO TID PRN 30 days topiramate 50 mg PO BID 30 days Ventolin HFA 90 mcg/actuation (albuterol sulfate) 2 puffs inhalation Q4-6H PRN NS vitamin A palmitate 10,000 units PO DAILY Tobacco use date assessed: 10/28/23 Dental Screening Dental Screen Date: 06/27/23 HPI 4mth f/u HPI Details Patient comes in today for her follow-up visit States that she feels okay but is frustrated that she continues to gain weight despite her efforts at trying to lose weight She is now scheduled for sleeve gastrectomy at the end of the month on 11/03/2023 She denies any headaches or dizziness Denies any chest pains, no shortness of breath No nausea /vomiting, no abdominal pain No change in bowel habits noted Needs a few of her Rx refilled She had some labs done yesterday - to discuss her results [facility] Medical History (Updated 10/26/23 @ 12:40 by Rohini Pool RN) MISAEL (obstructive sleep apnea) GERD (gastroesophageal reflux disease) Anemia Morbid obesity Hypersomnia Loud snoring Blurry vision, bilateral Chronic migraine without aura PTSD (post-traumatic stress disorder) Bipolar depression Depression Morbid obesity with BMI of 45.0-49.9, adult Migraine Bilateral foot pain Fibromyalgia History of thyroid cancer Smoker Papillary thyroid carcinoma Post-surgical hypothyroidism Bilateral lower extremity edema Elevated LFTs Anxiety Asthma Hypothyroidism Cervical lymphadenopathy Vitamin D deficiency Thyroid cancer Surgical History History of esophagogastroduodenoscopy (EGD) Hx of tubal ligation History of surgery Hx of lymph node biopsy Hx of total thyroidectomy (~05/2020) Hx of section Hx of cholecystectomy Family History Father Diabetes Asthma Hypertension Mother Diabetes Hypertension Multiple sclerosis Daughter No problems noted. Daughter No problems noted. Daughter No problems noted. Daughter Deaf Asthma Daughter Deaf Son No problems noted. Son Asthma Son No problems noted. Social History (Updated 10/28/23 @ 13:04 by NANCY Cohen) Household Members: Spouse Housing: Apartment Are you a primary hospice care consultant to a significant other at home: No Do you presently have visiting nurse or other home services: No Alcohol intake: current Alcohol intake frequency: holidays/special occasions only Patient Tobacco Use Status: Former Tobacco user Quit Date: 2021 Tobacco use type: Cigarette Years Smoked: 20 e-Cigarette/Vaping Use: Former Use Second Hand Smoke Exposure: Yes service: No Current occupational status: unemployed Current occupational exposures/hazards: No Cognitive needs: No Hearing needs: No Vision needs: No Female Reproductive History Menstrual Age of Menarche: 12 Questionnaire Thrive Questionnaire Date Thrive assessed: 06/27/23 RUSSELL-7 AMB Questionnaire RUSSELL-7 Date RUSSELL - 7 assessed: 06/27/23 Source: Developed by Drs. Alexander Avila, Shirlene Travis, Valdemar Cruz and colleagues, with an educational dilma from [employer]. Physical exam (Primary Care) Vital Signs: Last Vital Signs BP 124/68 10/28/23 12:58 BMI result Body Mass Index 58.4 Tobacco/Smoking Status: Tobacco use Status Tobacco use date assessed 10/28/23 10/28/23 13:06 Patient Tobacco Use Status Former Tobacco user 10/28/23 13:06 Tobacco use type Cigarette 10/28/23 13:06 e-Cigarette/Vaping Use Former Use 10/28/23 13:06 Thrive Assessment: Date of Thrive Assessment Date Thrive assessed 06/27/23 10/28/23 13:06 Results Reviewed Results Reviewed: Laboratory Tests 10/27/23 10/27/23 11:16 11:55 WBC 9.9 Hgb 12.3 Hct 38.6 Plt Count 382 ESR 23 H Sodium 141 Potassium 4.5 Creatinine 0.75 Estimated GFR > 60 Random Glucose 98 Hemoglobin A1c % 5.8 Calcium 8.9 Iron 36 TIBC 402 % Saturation 9 L Ferritin 17 AST 72 H ALT 104 H C-Reactive Protein 2.72 H Triglycerides 106 Cholesterol 150 LDL Cholesterol, Calc 78 HDL Cholesterol 51 Vitamin B12 410 25-OH Vitamin D Total 57.7 TSH 2.03 Ur Specific [place] 1.020 Urine Protein Negative Urine Glucose (UA) Negative Urine Blood Negative Urine Nitrite Negative Ur Leukocyte Esterase Negative Assessment and Plan Assessment & Plan (1) Asthma: Code(s): J45.909 - Unspecified asthma, uncomplicated Qualifiers: Asthma severity: moderate Asthma persistence: persistent Asthma complication type: uncomplicated Qualified Code(s): J45.40 - Moderate persistent asthma, uncomplicated Plan: Stable/controlled Continue Advair HFA 115-21 mcg 2 inhalations BID and Albuterol HFA 2 inhalations every 6 hours as needed Continue Xolair injection 300 mg SQ every 2 weeks from pulmonary - follow up with pulmonary as scheduled (2) Sleep apnea: Comment: Mild degree of sleep apnea with increased severity in REM sleep. The AHI was 17/hr, REM AHI was 44/hr and oxygen [place] was 77% Code(s): G47.30 - Sleep apnea, unspecified Qualifiers: Sleep apnea type: obstructive Qualified Code(s): G47.33 - Obstructive sleep apnea (adult) (pediatric) Plan: Patient continues to use her CPAP device at 12 cm of water regularly when sleeping every night Follow up with Sleep Medicine as scheduled (3) Fibromyalgia: Code(s): M79.7 - Fibromyalgia Plan: Continue Gabapentin 800 mg TID and Tizanidine 4 mg TID PRN We recently tried switching her Gabapentin over to Pregabalin but this was denied by insurance She was also seen by rheumatology recently and advised to continue on current Rx and to follow up as needed (4) Migraine: Code(s): G43.909 - Migraine, unspecified, not intractable, without status migrainosus Qualifiers: Migraine type: unspecified Status migrainosus presence: without status migrainosus Intractability: not intractable Qualified Code(s): G43.909 - Migraine, unspecified, not intractable, without status migrainosus Plan: Stable/controlled on prophylactic Tx with Topiramate 50 mg BID Continue Fioricet 50-325-40 mg PRN Follow up with neurology as scheduled (5) GERD (gastroesophageal reflux disease): Code(s): K21.9 - Gastro-esophageal reflux disease without esophagitis Qualifiers: Esophagitis presence: without esophagitis Qualified Code(s): K21.9 - Gastro-esophageal reflux disease without esophagitis Plan: Reinforced dietary restrictions Upper GI series done last year revealed (+) large gastroesophageal reflux into the pharynx. No hiatal hernia seen Continue Omeprazole 40 mg QD (6) Post-surgical hypothyroidism: Code(s): E89.0 - Postprocedural hypothyroidism Plan: Continue Levothyroxine 175 mcg QD Follow up with endocrinology as scheduled (7) Papillary thyroid carcinoma: Comment: S/P total thyroidectomy by Dr. Cosme in May 2020 Code(s): C73 - Malignant neoplasm of thyroid gland Plan: Follow up with endocrinology as scheduled for continuing surveillance (8) Vitamin D deficiency: Code(s): E55.9 - Vitamin D deficiency, unspecified Plan: Continue Vitamin D3 2000 units QD (9) Anxiety: Code(s): F41.9 - Anxiety disorder, unspecified Plan: Continue Clonazepam 1 mg QD PRN and Hydroxyzine 50 mg TID PRN Continue Fluoxetine 20 mg QD (10) Depression: Code(s): F32.A - Depression, unspecified Qualifiers: Depression Type: major depressive disorder Major depression recurrence: recurrent Active/Remission status: currently active Major depression episode severity: unspecified Qualified Code(s): F33.9 - Major depressive disorder, recurrent, unspecified Plan: Continue Bupropion 300 mg Q AM and Fluoxetine 20 mg QD She is on Topiramate 25 mg Q HS for her migraine - is advised that this can also help as a mood stabilizer Follow up with psychiatry as scheduled (11) Morbid obesity with BMI of 45.0-49.9, adult: Code(s): E66.01 - Morbid (severe) obesity due to excess calories; Z68.42 - Body mass index [BMI] 45.0-49.9, adult Plan: She is following up with weight management and is now scheduled for sleeve gastrectomy next week on 11/03/2023 Plan Follow up in 4 months Medications: Changed From clonazepam (Klonopin) 1 mg PO DAILY To clonazepam (Klonopin) 1 mg PO DAILY 30 days PRN 30 tabs 0RF anxiety From omeprazole 40 mg PO DAILY 30 days 30 caps 1RF To omeprazole 40 mg PO DAILY 90 days 90 caps 1RF Refilled ipratropium-albuterol 0.5 mg-3 mg(2.5 mg base)/3 mL 3 mL inhalation Q4-6H 30 days PRN 270 mL 6RF wheezing Coding Level of Care Code Est Pt Level 4 (76347) Diagnoses Moderate persistent asthma without complication J45.40 Asthma severity: moderate Asthma persistence: persistent Asthma complication type: uncomplicated Obstructive sleep apnea syndrome G47.33 Sleep apnea type: obstructive Fibromyalgia M79.7 Migraine without status migrainosus, not intractable, unspecified migraine type G43.909 Migraine type: unspecified Status migrainosus presence: without status migrainosus Intractability: not intractable Gastroesophageal reflux disease without esophagitis K21.9 Esophagitis presence: without esophagitis Post-surgical hypothyroidism E89.0 Papillary thyroid carcinoma C73 Vitamin D deficiency E55.9 Anxiety F41.9 Episode of recurrent major depressive disorder, unspecified depression episode severity F33.9 Depression Type: major depressive disorder Major depression recurrence: recurrent Active/Remission status: currently active Major depression episode severity: unspecified Morbid obesity with BMI of 45.0-49.9, adult E66.01; Z68.42
[2023-10-28 12:58] VITALS: BP 124/68; BMI 58.4
== END 2023-10-28 13:31 | disposition home or self-care (01) ==
PROVIDERS: PCP Internal Medicine; Visit Provider Internal Medicine
DX: J45.40 Moderate persistent asthma, uncomplicated (principal); G47.33 Obstructive sleep apnea (adult) (pediatric); M79.7 Fibromyalgia; G43.909 Migraine, unspecified, not intractable, without status migrainosus; K21.9 Gastro-esophageal reflux disease without esophagitis; E89.0 Postprocedural hypothyroidism; C73 Malignant neoplasm of thyroid gland; E55.9 Vitamin D deficiency, unspecified; F41.9 Anxiety disorder, unspecified; F33.9 Major depressive disorder, recurrent, unspecified; E66.01 Morbid (severe) obesity due to excess calories; Z68.42 Body mass index [BMI] 45.0-49.9, adult
CPT/HCPCS: 99214

== ENCOUNTER 2023-11-03 | Outpatient (REF) | payer OTHER, SELFPAY ==
[2023-10-26 13:07] VITALS: BMI 51.0
[2023-10-26 13:09] VITALS: BMI 51.0
[2023-10-27 11:57] LABS: MANUAL DIFF FLAG NO
[2023-10-27 12:26] LABS: Basophils Absolute Auto 0.1 X10*3/uL (0.0-0.2); Basophils Percent Auto 0.6 % (0-2); Eosinophils Absolute Auto 0.5 X10*3/uL (0.0-0.4); Eosinophils Percent Auto 5.6 % (0-4); Hematocrit 39.1 % (37.0-47.0); Hemoglobin 12.1 g/dl (12.0-16.0); Imm Gran Abs Auto 0.09 X10*3/uL (0.00-0.03); Lymphocytes Absolute Auto 2.3 X10*3/uL (1.2-4.9); Lymphocytes Percent Auto 24.6 % (20-40); Mean Corpuscular HGB Conc 30.9 g/dl (31.0-35.0); Mean Corpuscular Volume 87.3 fL (80.0-98.0); Mean Platelet Volume 9.4 fL (9.4-12.3); Monocytes Absolute Auto 0.8 X10*3/uL (0.1-1.2); Neutrophils Absolute Auto 5.7 x10*3/uL (2.0-8.3); Neutrophils Percent Auto 60.2 % (45-73); Platelet Count 389 X10*3/uL (160-400); Red Blood Count 4.48 X10*6/uL (4.20-5.50); Red Cell Distribution Width 17.7 % (11.0-16.0); White Blood Count 9.4 X10*3/uL (4.8-10.8)
[2023-10-27 12:31] LABS: Prothrombin Time 12.7 SEC (11.1-13.3)
[2023-10-27 12:34] LABS: Partial Thromboplastin Time 46.9 SEC (26.0-36.8)
[2023-10-27 13:10] LABS: Alanine Aminotransferase 104 U/L (0-31); Albumin Level 3.7 g/dL (3.5-5.0); Alkaline Phosphatase 88 U/L (39-117); Anion Gap 15 (12-20); Aspartate Amino Transferase 72 U/L (5-31); Bilirubin Total 0.2 mg/dL (0.0-1.0); Blood Urea Nitrogen 11 mg/dL (9-16); C Reactive Protein 2.72 mg/dL (< or = 0.50); Calcium 8.9 mg/dL (8.4-10.2); Carbon Dioxide 24 mmol/L (22-29); Chloride 107 mmol/L (96-108); Cholesterol 150 mg/dL (<200); Creatinine Clr Calc Pharmacy 129.5; Estimated Glomerular Filt Rate > 60; Glucose Random 98 mg/dL (60-115); HDL Cholesterol 51 mg/dL (>40); Iron 36 mcg/dL (30-160); LDL Cholesterol Calculated 78 mg/dL (<100); Percent Iron Saturation 9 % (15-50); Potassium 4.5 mmol/L (3.3-5.1); Sodium 141 mmol/L (135-145); Total Iron Binding Capacity 402 mcg/dL (228-428); Total Protein 8.2 g/dL (6.5-8.0); Triglycerides 106 mg/dL (<150); Unsaturated Iron Binding 366 ug/dL
[2023-10-27 13:12] LABS: Estimated Average Glucose 120 mg/dL; Hemoglobin A1c % 5.8 % (<6.0)
[2023-10-27 13:18] LABS: Ferritin 17 ng/mL (10-122); TSH reflex Free T4 2.03 uIU/mL (0.32-4.0); Vitamin D 25-OH Total 57.7 ng/mL (>30)
[2023-10-27 13:44] LABS: Vitamin B12 410 pg/mL (200-900)
[2023-10-31 01:33] LABS: Zinc 73 mcg/dL (60-130)
[2023-10-31 17:38] LABS: Vitamin A 56 mcg/dL (38-98)
[2023-11-01 16:39] LABS: Vitamin B1 10 nmol/L (8-30)
== END 2023-11-03 00:01 | disposition home or self-care (01) ==
LOC: HO.PAT
PROVIDERS: Physician Assistant Surgical; PCP Internal Medicine; Visit Provider Surgery
DX: E66.01 Morbid (severe) obesity due to excess calories (principal)
CPT/HCPCS: 36415; 80053; 80061; 82306; 82607; 82728; 83036; 83540; 84425; 84443; 84590; 84630; 85025; 85610; 85730; 86140; 86850; 86900; 86901

== ENCOUNTER 2024-02-27 12:13 | Outpatient (AMB) | payer OTHER, SELFPAY ==
[2024-02-27 12:35] VITALS: BP 108/80; PULSE 115; O2SAT 96; BMI 59.2
--- NOTE | 2024-02-27 12:35 | A.OFFPC_ITS ---
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: No Accompanied by: Self / Same As Patient Allergies morphine [MORPHINE] Allergy (Intermediate, Verified 02/27/24 13:13) WBC ELEVATED/ N/V shellfish derived [SHELLFISH DERIVED] Allergy (Intermediate, Verified 02/27/24 13:13) HIVES iodine [IODINE] Allergy (Mild, Verified 02/27/24 13:13) RASH duloxetine Adverse Reaction (Intermediate, Verified 02/27/24 13:13) vomiting Medication List - Last Reconciled 02/27/24 by Lavon Richardson MD aripiprazole 10 mg PO DAILY azithromycin take 500 mg today (day 1), then 250 mg for 4 days (days 2-5) PO bupropion HCl XL 300 mg PO QAM 30 days eeghixfidw-ntqstfzmjdetn-uanv 50-325-40 mg 1 tab PO Q6-8H PRN 30 days cholecalciferol (vitamin D3) 125 mcg PO DAILY clonazepam (Klonopin) 1 mg PO DAILY PRN 30 days fluoxetine 20 mg PO DAILY 30 days fluticasone propion-salmeterol 500-50 mcg/dose (Advair Diskus) 1 inh inhalation BID 30 days gabapentin 800 mg PO QID 30 days hydroxyzine HCl 50 mg PO TID PRN 30 days ipratropium-albuterol 0.5 mg-3 mg(2.5 mg base)/3 mL 3 mL inhalation Q4-6H PRN 30 days iron,carbonyl-vitamin C 65 mg iron- 125 mg (Vitron-C) 1 tab PO DAILY levothyroxine 150 mcg PO DAILY 90 days magnesium oxide 400 mg PO DAILY 30 days mecobalamin (vitamin B12) 1,000 mcg sublingual DAILY [NEBULIZER Use as directed as needed] omalizumab (Xolair) 300 mg subcut Q2W 28 days omeprazole 40 mg PO DAILY 90 days ondansetron 4 mg PO Q12H pantoprazole 40 mg PO DAILY polyethylene glycol 3350 17 grams PO DAILY prednisone 4 tablets x 3 days, then 3 tablets x 3 days, then 2 tablets x 3 days, then 1 tablet x 3 days 12 days sucralfate 10 mL PO BID thiamine HCl (vitamin B1) 100 mg PO DAILY tizanidine 4 mg PO TID PRN 30 days topiramate 50 mg PO BID 30 days Ventolin HFA 90 mcg/actuation (albuterol sulfate) 2 puffs inhalation Q4-6H PRN NS vitamin A palmitate 10,000 units PO DAILY Tobacco use date assessed: 02/27/24 Dental Screening Dental Screen Date: 02/27/24 Did you have a dental visit in the last 12 months?: Yes Did you have a dental problem in the last 6 months where you did not have access to dental care?: No Was dental information given to patient?: Patient has dentist HPI 1985 HPI Details Patient comes in today for her follow up visit States that she has been experiencing a flare up of her asthma symptoms (chest tightness, coughing, wheezing) for the past 3 days States that she has been out of her Advair inhaler for about 2 to 3 months now and for unclear reasons, could not or did not get it refilled and has only been using her Ventolin inhaler, which she states helps She denies any fever or sore throat lately Denies any headaches or dizziness Denies any exertional chest pains No nausea/vomiting, no abdominal pain No change in bowel habits noted She also brought in some papers for transitional assistance that needs to be filled out for her today Patient adds that she back out of her gastric bypass surgery at the last minute back in October 2023 as she got scared and was advised that since she is not going for bariatric surgery, there is no reason for her to continue following up with Dr. Crouch [facility] Medical History MISAEL (obstructive sleep apnea) GERD (gastroesophageal reflux disease) Anemia Morbid obesity Hypersomnia Loud snoring Blurry vision, bilateral Chronic migraine without aura PTSD (post-traumatic stress disorder) Bipolar depression Depression Morbid obesity with BMI of 45.0-49.9, adult Migraine Bilateral foot pain Fibromyalgia History of thyroid cancer Smoker Papillary thyroid carcinoma Post-surgical hypothyroidism Bilateral lower extremity edema Elevated LFTs Anxiety Asthma Hypothyroidism Cervical lymphadenopathy Vitamin D deficiency Thyroid cancer Surgical History History of esophagogastroduodenoscopy (EGD) Hx of tubal ligation History of surgery Hx of lymph node biopsy Hx of total thyroidectomy (~05/2020) Hx of section Hx of cholecystectomy Family History Father Diabetes Asthma Hypertension Mother Diabetes Hypertension Multiple sclerosis Daughter No problems noted. Daughter No problems noted. Daughter No problems noted. Daughter Deaf Asthma Daughter Deaf Son No problems noted. Son Asthma Son No problems noted. Social History Household Members: Spouse Housing: Apartment Are you a primary nursing care partner to a significant other at home: No Do you presently have visiting nurse or other home services: No Alcohol intake: current Alcohol intake frequency: holidays/special occasions only Patient Tobacco Use Status: Former Tobacco user Tobacco use type: Cigarette Years Smoked: 20 e-Cigarette/Vaping Use: Former Use Second Hand Smoke Exposure: Yes service: No Current occupational status: unemployed Current occupational exposures/hazards: No Cognitive needs: No Hearing needs: No Vision needs: No Female Reproductive History Menstrual Age of Menarche: 12 Questionnaire PHQ-9 Over the last 2 weeks, how often have you been bothered by any of the following problems? 1. Little interest or pleasure in doing things: nearly every day 2. Feeling down, depressed, or hopeless: nearly every day 3. Trouble falling or staying asleep, or sleeping too much: nearly every day 4. Feeling tired or having little energy: more than half the days 5. Poor appetite or overeating: more than half the days 6. Feeling bad about yourself - or that you are a failure or have let yourself or your family down: more than half the days 7. Trouble concentrating on things, such as reading the newspaper or watching television: not at all 8. Moving or speaking so slowly that other people could have noticed. Or the opposite - being so fidgety or restless that you have been moving around a lot more than usual: not at all 9. Thoughts that you would be better off or of hurting yourself in some way: not at all Total score: 15 Depression Screening Interpretation: Positive Depression Screening Follow-up: Existing condition, In treatment and Community Mental Health Worker F/U Depression Screening Done: Yes 73766 - PHQ-9 Billing: Yes Source: Developed by Drs. Alexander Avila, Shirlene Travis, Valdemar Cruz and colleagues, with an educational dilma from [employer]. Thrive Questionnaire Date Thrive assessed: 02/27/24 I am a: Patient What is your living situation today?: I have a steady place to live Within the past 12 months, did the food you bought not last and you didn't have the money to get more?: Often true Within the past 12 months, did you worry whether your food would run out before you got money to buy more?: Often true Do you have trouble paying for medicines?: No Do you have trouble getting transportation to medical appointments?: No Do you have trouble paying your heating and electricity bill?: No Do you have trouble taking care of your child, family member or friend?: No Do you have trouble with day-to-day activities such as bathing, preparing meals, shopping, managing finances, etc.?: No Are you currently unemployed and looking for a job?: Yes Are you interested in more education?: No Please select the resources that you would like help with: None Currently or been in a relationship where the following occur: I choose not to answer THRIVE Score: 2 AUDIT C Alcohol Use Questionnaire (AUDIT-C) 1. How often do you have a drink containing alcohol?: Never 3. How often do you have six or more drinks on one occasion?: Never Total Score: 0 Score Reviewed/Action Taken: Yes RUSSELL-7 AMB Questionnaire RUSSELL-7 Date RUSSELL - 7 assessed: 02/27/24 Feeling nervous, anxious, or on edge: 2 = More than half the days Not being able to stop or control worryin = More than half the days Worrying too much about different things: 2 = More than half the days Trouble relaxin = More than half the days Being so restless that it is hard to sit still: 2 = More than half the days Becoming easily annoyed or irritable: 2 = More than half the days Feeling afraid as if something awful might happen: 1 = Several days Total RUSSELL-7 score (0-4 normal; 5-9 mild; 10-14 moderate; 15-21 severe): 13 Source: Developed by Drs. Alexander Avila, Shirlene Travis, Valdemar Cruz and colleagues, with an educational dilma from [employer]. Review of Systems Const Denies chills, Reports fatigue, Denies fever(s) and Denies headache(s) ENT Denies dysphagia, Denies dizziness, Denies otalgia, Denies headache(s), Reports nasal congestion, Denies neck pain, Denies odynophagia and Denies sore throat Card Denies chest pain, Denies rapid heart rate, Denies irregular heart rhythm, Denies palpitations, Reports dyspnea and Reports dyspnea on exertion Resp Reports chest congestion (chest feels tight often), Reports cough (recurrent, mostly non-productive), Reports dyspnea, Reports dyspnea on exertion and Reports wheezing (on and off lately) GI Denies abdominal pain, Denies constipation, Denies dysphagia, Denies heartburn, Denies diarrhea, Denies nausea, Denies odynophagia and Denies vomiting Denies hematuria, Denies urinary frequency, Denies dysuria, Denies urinary incontinence and Denies urinary urgency Musc Reports back pain (on and off), Reports myalgias (diffuse), Denies arthralgias and Denies neck pain Skin/Breast Denies rash Neuro Denies dizziness, Denies headache(s) and Denies paresthesias Psych Denies anxiety and Denies depression Endo Reports fatigue and Denies palpitations Parish/Lymph Denies easy bruising Aller/Immun Reports wheezing (on and off lately) Physical exam (Primary Care) Vital Signs: Last Vital Signs Pulse 115 H 02/27/24 12:35 BP 108/80 02/27/24 12:35 Pulse Ox 96 02/27/24 12:35 Oxygen Delivery Method Room Air 02/27/24 12:35 BMI result Body Mass Index 59.2 Tobacco/Smoking Status: Tobacco use Status Tobacco use date assessed 02/27/24 02/27/24 12:45 Patient Tobacco Use Status Former Tobacco user 02/27/24 12:45 Tobacco use type Cigarette 02/27/24 12:45 e-Cigarette/Vaping Use Former Use 02/27/24 12:45 PHQ-9: PHQ-9 Score PHQ-9: Total score 15 02/27/24 12:45 Depression Screening Interpretation: Positive Depression Screening Follow-up: Existing condition, In treatment and Community Mental Health Worker F/U Thrive Assessment: Date of Thrive Assessment Date Thrive assessed 02/27/24 02/27/24 12:45 Currently or been in a relationship where the following occur: I choose not to answer Const General: no acute distress and alert HENMT Ears: TM's normal bilaterally and EAC's normal Throat: Yes posterior oropharynx normal and Yes tonsils normal (no TP congestion) Neck Neck: Yes no lymphadenopathy and Yes supple Thyroid: Thyroid normal Resp Auscultation: no crackles, no rales, rhonchi (occasional) throughout, wheezes (scattered) expiratory wheezes and diminished lung sounds bilateral Cardio Rate: regular rate Rhythm: regular rhythm Heart sounds: no murmurs GI Palpation (GI): Soft to palpation and nontender Auscultation: normal bowel sounds General: Yes no CVA tenderness Back/Spine/Pelvis Back: no CVA tenderness Thoracic/Lumbar Spine: lumbar spinal tenderness Skin Rashes: no rashes Extrem General: Yes no clubbing, cyanosis or edema Assessment and Plan Assessment & Plan (1) Asthma exacerbation: Code(s): J45.901 - Unspecified asthma with (acute) exacerbation Qualifiers: Asthma persistence: persistent Asthma severity: moderate Qualified Code(s): J45.41 - Moderate persistent asthma with (acute) exacerbation Plan: Will start patient back on her Advair Diskus 500-50 mcg 1 inhalation BID Continue Albuterol HFA 2 inhalations every 6 hours as needed Will start her on oral Prednisone taper and also empirically on Azithromycin (lokesh) x 5 days She used to see Dr. Cm for pulmonary follow up and was getting Xolair injections 300 mg SQ every 2 weeks but has not been back to see him in about 2 years now - will refer her back to Dr. Cm for continuing pulmonary management and follow up (2) Sleep apnea: Comment: Mild degree of sleep apnea with increased severity in REM sleep. The AHI was 1 7/hr, REM AHI was 44/hr and oxygen domingo was 77% Code(s): G47.30 - Sleep apnea, unspecified Qualifiers: Sleep apnea type: obstructive Qualified Code(s): G47.33 - Obstructive sleep apnea (adult) (pediatric) Plan: Patient continues to use her CPAP device at 12 cm of water regularly when sleeping every night Follow up with Sleep Medicine as scheduled (3) Fibromyalgia: Code(s): M79.7 - Fibromyalgia Plan: Continue Gabapentin 800 mg TID and Tizanidine 4 mg TID PRN We tried switching her Gabapentin over to Pregabalin a few months ago but this was denied by insurance She was also seen by rheumatology recently and advised to continue on current Rx and to follow up as needed (4) Migraine: Code(s): G43.909 - Migraine, unspecified, not intractable, without status migrainosus Qualifiers: Migraine type: unspecified Status migrainosus presence: without status migrainosus Intractability: not intractable Qualified Code(s): G43.909 - Migraine, unspecified, not intractable, without status migrainosus Plan: Stable/controlled on prophylactic Tx with Topiramate 50 mg BID Continue Fioricet 50-325-40 mg PRN Follow up with neurology as scheduled (5) GERD (gastroesophageal reflux disease): Code(s): K21.9 - Gastro-esophageal reflux disease without esophagitis Qualifiers: Esophagitis presence: without esophagitis Qualified Code(s): K21.9 - Gastro-esophageal reflux disease without esophagitis Plan: Reinforced dietary restrictions Upper GI series done last year revealed (+) large gastroesophageal reflux into the pharynx. No hiatal hernia seen Continue Omeprazole 40 mg QD (6) Elevated LFTs: Code(s): R79.89 - Other specified abnormal findings of blood chemistry Plan: Have again advised patient that her LFTs were still significantly elevated on her labs done a few months ago, and that these are likely related to her weight Will send her for some labs in 4 months for follow up - these will include her LFTs as well as a liver fibrosis panel for further evaluation (7) Post-surgical hypothyroidism: Code(s): E89.0 - Postprocedural hypothyroidism Plan: Continue Levothyroxine 175 mcg QD Follow up with endocrinology as scheduled Will have patient recheck her TFTs in 4 months for follow up (8) Papillary thyroid carcinoma: Comment: S/P total thyroidectomy by Dr. Cosme in May 2020 Code(s): C73 - Malignant neoplasm of thyroid gland Plan: Follow up with endocrinology as scheduled for continuing surveillance (9) Vitamin D deficiency: Code(s): E55.9 - Vitamin D deficiency, unspecified Plan: Continue Vitamin D3 2000 units QD (10) Anxiety: Code(s): F41.9 - Anxiety disorder, unspecified Plan: Continue Clonazepam 1 mg QD PRN and Hydroxyzine 50 mg TID PRN Continue Fluoxetine 20 mg QD (11) Depression: Code(s): F32.A - Depression, unspecified Qualifiers: Depression Type: major depressive disorder Major depression recurrence: recurrent Active/Remission status: currently active Major depression episode severity: unspecified Qualified Code(s): F33.9 - Major depressive disorder, recurrent, unspecified Plan: Continue Bupropion 300 mg Q AM and Fluoxetine 20 mg QD She is on Topiramate 25 mg Q HS for her migraine - is advised that this can also help as a mood stabilizer Follow up with psychiatry as scheduled Per request, have also filled out her transitional assistance forms in the office today (12) Morbid obesity with BMI of 45.0-49.9, adult: Code(s): E66.01 - Morbid (severe) obesity due to excess calories; Z68.42 - Body mass index [BMI] 45.0-49.9, adult Plan: She was following up with weight management and was originally scheduled for sleeve gastrectomy on 11/03/2023 but she backed out at the last minute as she was supposedly scared to go for the surgery She was advised that since she is not going for bariatric surgery, there is no reason for her to continue following up with Dr. Crouch Plan Follow up in 4 months Orders: Orders Complete Blood Count Auto Diff 4 Months D64.9 - Anemia, unspecified Lipid Panel 4 Months E78.00 - Pure hypercholesterolemia, unspecified Comprehensive [place]. Panel Fast 4 Months E78.00 - Pure hypercholesterolemia, unspecified UA CC w/rflx Micro + Cult 4 Months R30.0 - Dysuria Thyroid Stimulating Hormone 4 Months E03.9 - Hypothyroidism, unspecified Free T4 (Free Thyroxine) 4 Months E03.9 - Hypothyroidism, unspecified Vitamin D 25-OH Total 4 Months E55.9 - Vitamin D deficiency, unspecified Liver Fibrosis Pnl 4 Months R79.89 - Other specified abnormal findings of blood chemistry Referrals Pulmonology Referral J45.40 - Moderate persistent asthma, uncomplicated Medications: New prednisone 4 tablets x 3 days, then 3 tablets x 3 days, then 2 tablets x 3 days, then 1 tablet x 3 days 12 days 33 ea 0RF J45.901 - Unspecified asthma with (acute) exacerbation, M25.50 - Pain in unspecified joint azithromycin take 500 mg today (day 1), then 250 mg for 4 days (days 2-5) PO 6 tabs 0RF Changed From fluticasone propion-salmeterol 500-50 mcg/dose (Advair Diskus) 1 inh inhalation BID To fluticasone propion-salmeterol 500-50 mcg/dose (Advair Diskus) 1 inh inhalation BID 30 days 60 ea 3RF Coding Level of Care Code Est Pt Level 4 (59736) Diagnoses Moderate persistent asthma with exacerbation J45.41 Asthma persistence: persistent Asthma severity: moderate Obstructive sleep apnea syndrome G47.33 Sleep apnea type: obstructive Fibromyalgia M79.7 Migraine without status migrainosus, not intractable, unspecified migraine type G43.909 Migraine type: unspecified Status migrainosus presence: without status migrainosus Intractability: not intractable Gastroesophageal reflux disease without esophagitis K21.9 Esophagitis presence: without esophagitis Elevated LFTs R79.89 Post-surgical hypothyroidism E89.0 Papillary thyroid carcinoma C73 Vitamin D deficiency E55.9 Anxiety F41.9 Episode of recurrent major depressive disorder, unspecified depression episode severity F33.9 Depression Type: major depressive disorder Major depression recurrence: recurrent Active/Remission status: currently active Major depression episode severity: unspecified Morbid obesity with BMI of 45.0-49.9, adult E66.01; Z68.42
== END 2024-02-27 13:15 | disposition home or self-care (01) ==
PROVIDERS: PCP Internal Medicine; Visit Provider Internal Medicine
DX: J45.41 Moderate persistent asthma with (acute) exacerbation (principal); G47.33 Obstructive sleep apnea (adult) (pediatric); M79.7 Fibromyalgia; G43.909 Migraine, unspecified, not intractable, without status migrainosus; K21.9 Gastro-esophageal reflux disease without esophagitis; R79.89 Other specified abnormal findings of blood chemistry; E89.0 Postprocedural hypothyroidism; C73 Malignant neoplasm of thyroid gland; F33.9 Major depressive disorder, recurrent, unspecified; E66.01 Morbid (severe) obesity due to excess calories; Z68.42 Body mass index [BMI] 45.0-49.9, adult; E55.9 Vitamin D deficiency, unspecified; F41.9 Anxiety disorder, unspecified

== ENCOUNTER → 2024-02-27 12:13 | Outpatient (BNVA) | payer OTHER, SELFPAY | PROVIDERS: PCP Internal Medicine; Visit Provider Internal Medicine | DX: J45.41 Moderate persistent asthma with (acute) exacerbation (principal); G47.33 Obstructive sleep apnea (adult) (pediatric); M79.7 Fibromyalgia; G43.909 Migraine, unspecified, not intractable, without status migrainosus; K21.9 Gastro-esophageal reflux disease without esophagitis; R79.89 Other specified abnormal findings of blood chemistry; E89.0 Postprocedural hypothyroidism; C73 Malignant neoplasm of thyroid gland; E55.9 Vitamin D deficiency, unspecified; F41.9 Anxiety disorder, unspecified; F33.9 Major depressive disorder, recurrent, unspecified; E66.01 Morbid (severe) obesity due to excess calories; Z68.42 Body mass index [BMI] 45.0-49.9, adult | CPT/HCPCS: 99212 ==

== ENCOUNTER 2024-06-05 07:24 | Outpatient (REF) | payer OTHER, SELFPAY ==
[2024-06-05 10:10] LABS: Thyroid Stimulating Hormone 4.84 uIU/mL (0.32-4.0); Vitamin D 25-OH Total 27.3 ng/mL (>30)
[2024-06-07 17:44] LABS: Thyroglobulin <0.1 ng/mL; Thyroglobulin Antibodies <1 IU/mL (< or = 1)
[2024-06-08 20:33] LABS: Thyroglobulin Antibody <1 IU/mL (<=1); Thyroglobulin Level <0.1 ng/mL
== END 2024-06-05 07:25 | disposition home or self-care (01) ==
LOC: HO.LAB 07:24
PROVIDERS: PCP Internal Medicine; Visit Provider Student in an Organized Health Care Education/Training Program
DX: Z85.850 Personal history of malignant neoplasm of thyroid (principal); E89.0 Postprocedural hypothyroidism; E55.9 Vitamin D deficiency, unspecified; E66.01 Morbid (severe) obesity due to excess calories; R22.1 Localized swelling, mass and lump, neck
CPT/HCPCS: 36415; 82306; 84432; 84439; 84443; 86800; 99212

== ENCOUNTER 2024-06-05 07:24 | Outpatient (AMB) | payer OTHER, SELFPAY ==
--- NOTE | 2024-06-05 07:56 | A.OFFVIS_ITS ---
Vital Signs 3 06/05/24 07:58 Height 5 ft 2 in Weight 335 lb 1.642 oz BMI 61.3 BP 106/78 Blood Pressure Location Rt brachial Position Sitting Pulse 95 Pulse Source Pulse Oximeter Intake Visit Reasons: F/U Thyroid Cancer/Lump back of neck R side Intake Note: Patient present today for Thyroid Cancer/Lump back of neck R side. Patient went to the ED recently, due to contractions pain all over the body: L Investment Advisor Required: No Accompanied by: Self / Same As Patient Allergies morphine [MORPHINE] Allergy (Intermediate, Verified 02/27/24 13:13) WBC ELEVATED/ N/V shellfish derived [SHELLFISH DERIVED] Allergy (Intermediate, Verified 02/27/24 13:13) HIVES iodine [IODINE] Allergy (Mild, Verified 02/27/24 13:13) RASH duloxetine Adverse Reaction (Intermediate, Verified 02/27/24 13:13) vomiting Medication List - Last Reconciled 06/05/24 by Melyssa Cifuentes MD aripiprazole 10 mg PO DAILY bupropion HCl XL 300 mg PO QAM 30 days fiqaljnpfz-ydiehgenxcddh-kvpe 50-325-40 mg 1 tab PO Q6-8H PRN 30 days clonazepam (Klonopin) 1 mg PO DAILY PRN 30 days fluoxetine 20 mg PO DAILY 30 days fluticasone propion-salmeterol 500-50 mcg/dose (Advair Diskus) 1 inh inhalation BID 30 days gabapentin 800 mg PO QID 30 days hydroxyzine HCl 50 mg PO TID PRN 30 days ipratropium-albuterol 0.5 mg-3 mg(2.5 mg base)/3 mL 3 mL inhalation Q4-6H PRN 30 days iron,carbonyl-vitamin C 65 mg iron- 125 mg (Vitron-C) 1 tab PO DAILY levothyroxine 150 mcg PO DAILY 90 days magnesium oxide 400 mg PO DAILY 30 days mecobalamin (vitamin B12) 1,000 mcg sublingual DAILY [NEBULIZER Use as directed as needed] omalizumab (Xolair) 300 mg subcut Q2W 28 days omeprazole 40 mg PO DAILY 90 days ondansetron 4 mg PO Q12H pantoprazole 40 mg PO DAILY polyethylene glycol 3350 17 grams PO DAILY prednisone 4 tablets x 3 days, then 3 tablets x 3 days, then 2 tablets x 3 days, then 1 tablet x 3 days 12 days sucralfate 10 mL PO BID thiamine HCl (vitamin B1) 100 mg PO DAILY tizanidine 4 mg PO TID PRN 30 days topiramate 50 mg PO BID 30 days Ventolin HFA 90 mcg/actuation (albuterol sulfate) 2 puffs inhalation Q4-6H PRN NS vitamin A palmitate 10,000 units PO DAILY HPI Comments Details: 39-year-old female with past medical history significant for schizophrenia, multifocal classic PTC 2.6 cm largest lesion, status post total thyroidectomy 05/09/2020, with Dr. Soledad Cosme, with pathology showing negative margins, no extrathyroidal extension, no angio or lymphatic invasion, 0/8 lymph nodes positive for metastatic disease, AJCC stage I, JAHAIRA initial low risk of recurrence, who has had poor compliance with follow up and missed multiple appointments in the past per the chart. Here today for follow up of PTC. History of PTC in detail 2019: Noted a lump in her neck which she stated was growing. Prompted her PCP to check a CT scan of the neck which revealed a 3.2 cm thyroid mass as well as a 1.8 cm prominent level 2A cervical lymph nodes bilaterally. Thyroid ultrasound revealed 2.7 cm left midpole thyroid nodule and she was referred to Endocrine. 03/06/2020: FNA biopsy of the left midpole 2.7 cm nodule with cytology revealing papillary thyroid cancer ([place] category 6) 05/09/2020: Status post total thyroidectomy with Dr. Soledad Cosme at [facility], with pathology showing multifocal 2.6 cm classic PTC in the left lobe/isthmus, and a micro PTC in the right superior/mid lobe with negative margins, no extrathyroidal extension, no angio or lymphatic invasion. 0/8 lymph nodes positive for metastatic disease. Left inferior parathyroid gland was also excised. She did not undergo I 131 remnant ablation. 02/04/2021: Thyrogen stimulated labs, TSH greater than 100, TG less than 0.1 with negative TG antibodies. 09/14/2021: Ultrasound head and neck revealed 2 of normal-appearing lymph nodes, a left level 1B, 1.6 cm lymph node which is lobulated and contains no fatty hilum, and also a left level 2, 2.2 cm lymph node which is also lobulated. 10/28/2021: FNA biopsy of these lymph nodes with cytology negative for malignant cells and TG washout negative. 02/13/2021: Thyrogen stimulated whole-body scan revealed only physiologic uptake. 07/07/2023: Ultrasound head and neck (I reviewed the images myself) mostly showed normal-appearing lymph nodes with the exception of a left level 1B lymph node measuring 2.2 X 1 X 1.8 cm with a measurement of 1 cm in the anterior-posterior axis, which appears lobulated, cystic, however this has been biopsied before and was benign. Otherwise normal-appearing lymph nodes noted. Postoperatively she was started on levothyroxine 150 mcg p.o. daily. She however did have poor adherence to levothyroxine. Her dose was increased to 200 mcg p.o. daily, however with good adherence subsequently labs showed hyperthyroidism so dose was decreased to 175 mcg p.o. daily. She was on this dose back in February 2022 when she had come for her last follow up. At that appointment dose of levothyroxine was decreased to 150 mcg daily. 10/27/2023: TSH 2.03 Today: Currently on levothyroxine 150 mcg daily on empty stomach , between 6 to 8 AM and doesnt eat breakfast, endorses good adherence Sore throat for the past 3 weeks, describes pain with swallowing, using voice hurts , worsening. Describes fever for the past 3 days Reports fatigue No changes to bowel movements Obesity BMI 61.3 kg per m2 Gained 100 lbs since 2019 and 60 lbs since 10/2023 Doesnt exercise Cancelled bariatric surgery follow up due to anxiety , was following up with them up until October 2023. No change in ring size or shoe size. No easy bruising, no facial plethora. Physical exam General: sitting comfortably in no acute distress HEENT: normocephalic/atraumatic,moist oral mucosa Neck: supple, symmetrical, no dorsocervical or supraclavicular fat pads Cardiac: normal heart sounds Pulm: normal breath sounds B/L, no added breath sounds Abd: not distended, no tenderness Extremities: no edema, no signs of myxedema Neuro: AAO x3, Speech: normal, no facial droop, moving all 4 extremities Laboratory Tests 01/07/20 07/24/20 11/13/20 15:30 13:15 11:54 25-OH Vitamin D Total Free T4 0.94 < 0.40 L < 0.40 L TSH 71.75 H Thyroglobulin Thyroglobulin Antibody 11/13/20 11/13/20 01/01/21 11:54 11:54 12:22 25-OH Vitamin D Total Free T4 < 0.40 L 2.03 H TSH > 100.00 H > 100.00 H 0.09 L Thyroglobulin <0.1 L Thyroglobulin Antibody <1 02/03/21 02/04/21 06/04/21 09:40 08:35 13:53 25-OH Vitamin D Total Free T4 TSH 79.74 H > 100.00 H 0.03 L Thyroglobulin <0.1 L <0.1 L Thyroglobulin Antibody <1 <1 07/06/21 08/13/21 10/19/21 14:06 14:44 15:51 25-OH Vitamin D Total Free T4 1.12 0.82 1.50 TSH 2.67 16.09 H 0.03 L Thyroglobulin <0.1 L <0.1 L Thyroglobulin Antibody <1 <1 12/22/21 02/02/22 02/17/22 12:23 10:42 13:47 25-OH Vitamin D Total Free T4 1.56 1.37 1.71 TSH 0.04 L 0.04 L 0.02 L Thyroglobulin Thyroglobulin Antibody 04/20/22 07/28/22 09/27/22 10:18 14:41 14:16 25-OH Vitamin D Total Free T4 1.35 1.22 TSH 0.45 1.09 0.66 Thyroglobulin Thyroglobulin Antibody 02/17/23 07/07/23 07/30/23 10:07 14:44 09:45 25-OH Vitamin D Total Free T4 1.21 1.16 TSH 0.60 2.41 1.88 Thyroglobulin <0.1 <0.1 Thyroglobulin Antibody <1 <1 10/27/23 11:55 25-OH Vitamin D Total 57.7 Free T4 TSH 2.03 Thyroglobulin Thyroglobulin Antibody US SOFT TISSUE HEAD/NECK 07/07/23 CLINICAL INFORMATION: Personal history of malignant neoplasm of thyroid. COMPARISON: Ultrasound-guided left neck lymph node biopsy 10/28/2021. Ultrasound soft tissue head/neck 09/14/2021. Thyroid ultrasound 11/30/2019. TECHNIQUE: Linear transducer du-scale and color Doppler examination of the thyroid bed and surrounding soft tissue. FINDINGS: THYROID BED: Prior thyroidectomy. No residual thyroid tissue demonstrated in the thyroid bed. No cystic or solid nodules demonstrated in the thyroid bed. RIGHT NECK SOFT TISSUES: Right level 2 lymph node measures 1.4 x 0.8 x 0.7 cm. Right level 3 lymph node measures 0.9 x 0.5 x 0.9 cm. These lymph nodes appear similar to the prior study. LEFT NECK SOFT TISSUES: Left level 1B lymph node measures 2.2 x 1.0 x 1.8 cm Left level 2 lymph node measures 1.1 x 0.4 x 0.8 cm. Left level 3 lymph node measures 0.9 x 0.5 x 0.8 cm. Left level 4 lymph node measures 0.7 x 0.3 x 0.6 cm. These lymph nodes appear similar to the prior study. US/US soft tiss head and/or neck IMPRESSION: Allowing for slight differences in patient positioning and examination technique, there has been no significant interval change in bilateral cervical lymph nodes. No residual thyroid tissue or new abnormality in the thyroidectomy bed. US SOFT TISSUE HEAD/NECK 09/14/21 CLINICAL INFORMATION: Malignant neoplasm of thyroid. COMPARISON: Ultrasound thyroid soft tissues neck 11/30/2019. TECHNIQUE: Ultrasound of the neck soft tissues is performed with high- frequency du-scale imaging and color Doppler. FINDINGS: THYROID BED: Prior thyroidectomy. No residual thyroid tissue demonstrated in the thyroid bed. No cystic or solid nodules demonstrated in the thyroid bed. RIGHT NECK SOFT TISSUES: There are 4 right cervical lymph nodes. 2 lymph nodes demonstrate abnormal ultrasound pathology. Level 3: 1.7 x 0.5 x 1.2 cm. Abnormal nain architecture with thick cortex and slitlike or absent hilum. Level 3: 0.9 x 0.5 x 0.7 cm. Abnormal nain architecture with slitlike or absent hilum. There are 2 right level 3 lymph nodes that measure 1.7 x 0.3 x 0.7 cm and 1 x 0.3 x 0.8 cm. Normal in size and demonstrate normal ultrasound morphology. LEFT NECK SOFT TISSUES: There are left cervical lymph nodes. 3 lymph nodes demonstrate abnormal ultrasound morphology. Level 1B: 1.6 x 1 x 1.6 cm. Abnormal nain architecture with thick nodular cortex and irregular margins. Level 1B: 0.9 x 0.6 x 0.8 cm. Abnormal nain architecture with thickened cortex. Level 2:2.2 x 1.2 x 2.2 cm. Abnormal nain architecture with thick cortex and slitlike or absent hilum. There is a level 2 lymph node that measures 1.3 x 0.5 x 1 cm and demonstrate normal ultrasound morphology. There is a level 3 lymph node that measured 1.1 x 0.4 x 0.7 cm and demonstrates normal ultrasound morphology. US/US soft tiss head and/or neck IMPRESSION: No residual thyroid tissue or nodule is seen. Bilateral cervical lymph nodes as described above. [facility] Medical History MISAEL (obstructive sleep apnea) GERD (gastroesophageal reflux disease) Anemia Morbid obesity Hypersomnia Loud snoring Blurry vision, bilateral Chronic migraine without aura PTSD (post-traumatic stress disorder) Bipolar depression Depression Morbid obesity with BMI of 45.0-49.9, adult Migraine Bilateral foot pain Fibromyalgia History of thyroid cancer Smoker Papillary thyroid carcinoma Post-surgical hypothyroidism Bilateral lower extremity edema Elevated LFTs Anxiety Asthma Hypothyroidism Cervical lymphadenopathy Vitamin D deficiency Thyroid cancer Surgical History History of esophagogastroduodenoscopy (EGD) Hx of tubal ligation History of surgery Hx of lymph node biopsy Hx of total thyroidectomy (~05/2020) Hx of section Hx of cholecystectomy Family History Father Diabetes Asthma Hypertension Mother Diabetes Hypertension Multiple sclerosis Daughter No problems noted. Daughter No problems noted. Daughter No problems noted. Daughter Deaf Asthma Daughter Deaf Son No problems noted. Son Asthma Son No problems noted. Social History Household Members: Spouse Housing: Apartment Are you a primary career placement services counselor to a significant other at home: No Do you presently have visiting nurse or other home services: No Alcohol intake: current Alcohol intake frequency: holidays/special occasions only Patient Tobacco Use Status: Former Tobacco user Tobacco use type: Cigarette Years Smoked: 20 e-Cigarette/Vaping Use: Former Use Second Hand Smoke Exposure: Yes service: No Current occupational status: unemployed Current occupational exposures/hazards: No Cognitive needs: No Hearing needs: No Vision needs: No Female Reproductive History Menstrual Age of Menarche: 12 Physical Exam Vital Signs: Last Vital Signs Pulse 95 06/05/24 07:58 BP 106/78 06/05/24 07:58 BMI result Body Mass Index 61.3 Assessment & Plan Assessment & Plan (1) History of thyroid cancer: Code(s): Z85.850 - Personal history of malignant neoplasm of thyroid Category: Medical Plan: 39-year-old female with past medical history significant for schizophrenia, multifocal classic PTC 2.6 cm largest lesion, status post total thyroidectomy 05/09/2020, with Dr. Soledad Cosme, with pathology showing negative margins, no extrathyroidal extension, no angio or lymphatic invasion, 0/8 lymph nodes positive for metastatic disease, AJCC stage I (pT2), JAHAIRA initial low risk of recurrence, who has had poor compliance with follow up and missed multiple appointments in the past per the chart. Her stimulated TG levels have been undetectable, with last 1 from 02/04/2021, when she underwent Thyrogen stimulated whole-body scan, TSH greater than 100, TG undetectable. Whole-body scan only showed physiologic uptake. Ultrasound of the neck from 2021 did identify abnormal lymph nodes in the left side, however these were biopsied subsequently and no malignancy detected with negative thyroglobulin washout. Most recent thyroid ultrasound from July 2023 I reviewed the images myself showed mostly normal-appearing lymph nodes bilaterally with the exception a left level 1B lymph node 2.2 cm in the largest dimension but 1 cm in the anterior-posterior dimension which is lobulated in appearance, however this was the same 1 that was biopsied previously in 2020 and remained stable in size. She does today complain of some soreness in her neck on the left side, however she is also having fevers and likely has a sore throat/infection. It is almost 1 year to her last ultrasound so I will order another ultrasound of the neck but I have asked her to wait at least 4-5 weeks the 4th getting this to make sure that her infection has cleared up before we get an ultrasound of the neck to avoid the chance of false positives. We will also check her TSH, free T4 levels and TG/TG antibodies. She has gained 60 lb since summer 2023, and I told her that often levothyroxine needs to be adjusted with such a large weight gain. At this point I would classify her as JAHAIRA excellent response to therapy based on undetectable tumor markers per last follow up as well as negative lymph node biopsies. Plan: -ordered TSH, free T4, TG and TG antibodies -ordered ultrasound of the neck -continue levothyroxine 150 mcg daily -TSH goal 0.5-2 -follow up in 12 weeks to discuss results (2) Hypothyroidism: Code(s): E03.9 - Hypothyroidism, unspecified Category: Medical Qualifiers: Hypothyroidism type: unspecified Qualified Code(s): E03.9 - Hypothyroidism, unspecified Plan: Patient has post surgical hypothyroidism. She is JAHAIRA excellent response to therapy with regards to her thyroid cancer, TSH goal 0.5-2. Plan: -ordered TSH, free T4 -continue levothyroxine 150 mcg daily -TSH goal 0.5-2 (3) Vitamin D deficiency: Code(s): E55.9 - Vitamin D deficiency, unspecified Category: Medical Plan: Patient was taking 5000 units of vitamin-D up until a few months ago when she ran out of refills. Vitamin-D level from October 2023 it 57.7. She is asking for refills of vitamin-D. I have asked her to check her vitamin-D levels and then we can send her maintenance prescription. (4) Morbid obesity: Code(s): E66.01 - Morbid (severe) obesity due to excess calories Category: Medical Plan: Patient with severe obesity with BMI of 61.3 kg per m2. She has gained 100 lb since 2019, and she has gained 60 lb over this summer/fall 2023. She is complaining a lot of joint aches and body aches that keep her from exercising. She is interested in bariatric surgery however due to anxiety cancelled her surgical appointment. Currently has no follow up with them. We did extensive lifestyle modification counseling today. No features of acromegaly or anything to suggest [place]'s disease. She does not have history of diabetes, no history of fracture, no history of hypertension. I reviewed with patient the importance of weight loss as it relates to decreasing the risk of diabetes, cardiovascular disease, obstructive sleep apnea,PCOS, arthritis. We reviewed the importance of decreasing total calorie consumption, minimizing fats and carbohydrates. She was taught the 500 calorie deficit rule using phone applications to lose 1 lb per week We reviewed the plate method. I recommended avoiding eating after 7 PM at night. She was advised to start exercising 30-45 mins a day Or walking more than 10,000 steps a day. She would be a good candidate for weight loss medications such as GLP 1 agonist. We can discuss this further with her once we see her for follow up. She is also telling me that bariatric surgery is discharged her from their practice because she canceled her surgery last minute, I advised her to discuss with her primary care physician referral to another program in the state if she can not get follow up of her here as she definitely qualifies for bariatric surgery. Plan I spent 45 minutes in reviewing the record, seeing the patient and documenting in the medical record. Orders: Orders 2 Thyroid Stimulating Hormone Today E03.9 - Hypothyroidism, unspecified, Z85.850 - Personal history of malignant neoplasm of thyroid Free T4 (Free Thyroxine) Today E03.9 - Hypothyroidism, unspecified, Z85.850 - Personal history of malignant neoplasm of thyroid Thyroglobulin Tumor Marker Today E03.9 - Hypothyroidism, unspecified, Z85.850 - Personal history of malignant neoplasm of thyroid US soft tiss head and/or neck Today E03.9 - Hypothyroidism, unspecified, Z85.850 - Personal history of malignant neoplasm of thyroid Vitamin D 25-OH Total Today E55.9 - Vitamin D deficiency, unspecified Thyroglobulin Antibodies Today E03.9 - Hypothyroidism, unspecified, Z85.850 - Personal history of malignant neoplasm of thyroid Thyroglobulin Today E03.9 - Hypothyroidism, unspecified, Z85.850 - Personal history of malignant neoplasm of thyroid Patient Instructions: Do blood work today , we will reach out with results Do neck ultrasound , someone will call you to schedule this Continue levothyroxine 150 mcg daily, we will call you if dose adjustment is needed based on labs Follow up in 12 weeks Weight loss counselling ? Limit added sugars to less than 25 grams daily. There are 4.2 grams of sugar per teaspoon of sugar. A teaspoon of honey has 6 grams of sugar! Bread also can have more sugar than you think-check labels ? No soda or juices. Drink water, unsweetened iced tea or seltzer ? Limit eating out/take out or prepared meals to twice weekly at most ? Avoid red meat, hot dogs, young and deli meat. Substitute plant protein for animal protein as much as you can. Beans, nuts, tofu, soy milk ? Limit cheese to 1 ounce a few times weekly ? Eat high fiber foods like beans, apples and green veggies, salsa is a great snack with whole grain cracker like Wasa ? Look for the whole grain stamp when choosing bread etc. Aim for 48 grams of whole grains daily. Whole wheat does not equal whole grains! ? Don't keep tempting treats in the house. Go out once in a while for a treat. ? Don't eat anything deep fried or cream based-no sour cream Use phone application : LOSE IT , download on phone and aim for a 500 calorie deficit per day to [place] 1 [place] [address] [place] a day y starting slow and then moving up Coding Level of Care Code Est Pt Level 5 (30625) Complex EM visit Add On G2211 Diagnoses History of thyroid cancer Z85.850 Hypothyroidism, unspecified type E03.9 Hypothyroidism type: unspecified Vitamin D deficiency E55.9 Morbid obesity E66.01 Time Spent (min) 45
[2024-06-05 07:58] VITALS: BP 106/78; PULSE 95; BMI 61.3
== END 2024-06-05 08:46 | disposition home or self-care (01) ==
PROVIDERS: PCP Internal Medicine; Visit Provider Student in an Organized Health Care Education/Training Program
DX: Z85.850 Personal history of malignant neoplasm of thyroid (principal); E03.9 Hypothyroidism, unspecified; E55.9 Vitamin D deficiency, unspecified; E66.01 Morbid (severe) obesity due to excess calories
CPT/HCPCS: 99215; G2211

== ENCOUNTER 2024-06-08 14:08 | Outpatient (AMB) | payer OTHER, SELFPAY ==
[2024-06-08 14:09] VITALS: BP 122/64; PULSE 103; O2SAT 97; BMI 61.6
--- NOTE | 2024-06-08 14:09 | A.OFFVIS_ITS ---
Vital Signs 06/08/24 14:09 Height 5 ft 2 in Weight 337 lb BMI 61.6 BP 122/64 Blood Pressure Location Rt radial Position Sitting Pulse 103 H Pulse Source Doppler Pulse Oximetry (%) 97 Oxygen Delivery Method Room Air Intake Visit Reasons: asthma Allergies morphine [MORPHINE] Allergy (Intermediate, Verified 02/27/24 13:13) WBC ELEVATED/ N/V shellfish derived [SHELLFISH DERIVED] Allergy (Intermediate, Verified 02/27/24 13:13) HIVES iodine [IODINE] Allergy (Mild, Verified 02/27/24 13:13) RASH duloxetine Adverse Reaction (Intermediate, Verified 02/27/24 13:13) vomiting HPI HPI asthma: Details: 38-year-old lady, active 15 pack-year smoker, previously followed for severe persistent allergic asthma and environmental allergies and lost flow follow-up for paroxysmally 2 and half years with symptoms previously well controlled on Xolair, Advair, Incruse, and albuterol MDI/DuoNebs presents today to reestablish care. Patient states that she has ran out of Xolair approximately 20 months prior and after that her symptom control has worsened. She is interested in restarting Xolair therapy. [facility] Medical History MISAEL (obstructive sleep apnea) GERD (gastroesophageal reflux disease) Anemia Morbid obesity Hypersomnia Loud snoring Blurry vision, bilateral Chronic migraine without aura PTSD (post-traumatic stress disorder) Bipolar depression Depression Morbid obesity with BMI of 45.0-49.9, adult Migraine Bilateral foot pain Fibromyalgia History of thyroid cancer Smoker Papillary thyroid carcinoma Post-surgical hypothyroidism Bilateral lower extremity edema Elevated LFTs Anxiety Asthma Hypothyroidism Cervical lymphadenopathy Vitamin D deficiency Thyroid cancer Surgical History History of esophagogastroduodenoscopy (EGD) Hx of tubal ligation History of surgery Hx of lymph node biopsy Hx of total thyroidectomy (~05/2020) Hx of section Hx of cholecystectomy Family History Father Diabetes Asthma Hypertension Mother Diabetes Hypertension Multiple sclerosis Daughter No problems noted. Daughter No problems noted. Daughter No problems noted. Daughter Deaf Asthma Daughter Deaf Son No problems noted. Son Asthma Son No problems noted. Social History Household Members: Spouse Housing: Apartment Are you a primary home care scheduler to a significant other at home: No Do you presently have visiting nurse or other home services: No Alcohol intake: current Alcohol intake frequency: holidays/special occasions only Patient Tobacco Use Status: Former Tobacco user Tobacco use type: Cigarette Years Smoked: 20 e-Cigarette/Vaping Use: Former Use Second Hand Smoke Exposure: Yes service: No Current occupational status: unemployed Current occupational exposures/hazards: No Cognitive needs: No Hearing needs: No Vision needs: No Female Reproductive History Menstrual Age of Menarche: 12 Review of Systems Const Denies daytime sleepiness, Denies excessive sweating, Denies fatigue, Denies fever(s), Denies lethargy, Denies malaise, Denies night sweats, Denies snoring and Denies weight loss Eyes Denies blurry vision and Denies itchy eyes ENT Denies nasal congestion, Denies post nasal drip, Denies sinus pain, Denies sinus pressure and Denies other ( Thrush) Card Denies chest pain, Denies pedal edema, Denies dyspnea, Denies orthopnea and Denies paroxysmal nocturnal dyspnea Resp Denies cough, Denies hemoptysis, Denies excessive phlegm production, Denies dyspnea, Denies snoring and Denies wheezing GI Denies abdominal pain and Denies heartburn Musc Denies myalgias, Denies arthralgias and Denies joint swelling Skin/Breast Denies rash Neuro Denies memory loss and Denies seizure-like activity Psych Denies abnormal sleep pattern, Denies anxiety and Denies memory loss Endo Denies excessive sweating, Denies fatigue and Denies heat intolerance Parish/Lymph Denies easy bruising Aller/Immun Denies itchy eyes, Denies seasonal rhinorrhea and Denies wheezing Physical Exam Vital Signs: Last Vital Signs Pulse 103 H 06/08/24 14:09 BP 122/64 06/08/24 14:09 Pulse Ox 97 06/08/24 14:09 Oxygen Delivery Method Room Air 06/08/24 14:09 BMI result Body Mass Index 61.6 Const General: no acute distress and alert Nutritional Appearance: obese Orientation/consciousness: Other orientation findings ( oriented) HEENT Head: Yes atraumatic Eyes General: appearance normal, both eyes and all related structures Sclerae: sclerae normal EOM: EOMs intact bilaterally Neck Neck: Yes supple Lymphatic: no lymphadenopathy noted Resp Effort & Inspection: normal respiratory effort and no use of accessory muscles Auscultation: clear to auscultation bilaterally Cardio Rate: regular rate Rhythm: regular rhythm Heart sounds: no gallops, no murmurs and no rubs Skin General skin exam: other ( warm) Extrem General: No clubbing, No cyanosis and No edema Assessment & Plan Assessment & Plan (1) Asthma: Code(s): J45.909 - Unspecified asthma, uncomplicated Category: Medical Qualifiers: Asthma severity: moderate Asthma persistence: persistent Asthma complication type: uncomplicated Qualified Code(s): J45.40 - Moderate persistent asthma, uncomplicated Plan: Suboptimal control on Advair and albuterol MDI. Previously well controlled on Xolair. Will request Xolair approval. (2) Environmental allergies: Code(s): Z91.09 - Other allergy status, other than to drugs and biological substances Category: Medical Plan: Expect to improve on Xolair. Will check IgE level, CBC with differential, and RAST panel. Orders: Orders Resp Allergy Profile Region I Today J45.40 - Moderate persistent asthma, uncomplicated Complete Blood Count Auto Diff Today J45.40 - Moderate persistent asthma, uncomplicated Medications: Refilled fluticasone propion-salmeterol 500-50 mcg/dose (Advair Diskus) 1 inh inhalation BID 60 ea 6RF 30 days Ventolin HFA 90 mcg/actuation (albuterol sulfate) 2 puffs inhalation Q4-6H PRN 1 ea 6RF shortness of breath or wheezing NS Discontinued levothyroxine Discontinued Reason: Patient Completed Course 150 mcg PO DAILY 90 days 90 caps 6RF Z85.850 - Personal history of malignant neoplasm of thyroid Coding Level of Care Code Est Pt Level 4 (29152) Diagnoses Moderate persistent asthma without complication J45.40 Asthma severity: moderate Asthma persistence: persistent Asthma complication type: uncomplicated Environmental allergies Z91.09
== END 2024-06-08 14:23 | disposition home or self-care (01) ==
PROVIDERS: PCP Internal Medicine; Visit Provider Internal Medicine Pulmonary Disease
DX: J45.40 Moderate persistent asthma, uncomplicated (principal); Z91.09 Other allergy status, other than to drugs and biological substances
CPT/HCPCS: 99214

== ENCOUNTER 2024-06-08 14:08 | Outpatient (REF) | payer OTHER, SELFPAY ==
[2024-06-08 14:49] LABS: MANUAL DIFF FLAG NO
[2024-06-08 15:32] LABS: Basophils Percent Auto 0.4 % (0-2); Eosinophils Absolute Auto 0.4 X10*3/uL (0.0-0.4); Eosinophils Percent Auto 3.7 % (0-4); Hematocrit 36.9 % (37.0-47.0); Hemoglobin 11.3 g/dl (12.0-16.0); Imm Gran Abs Auto 0.05 X10*3/uL (0.00-0.03); Imm Gran Pct Auto 0.5 % (0.0-0.4); Lymphocytes Absolute Auto 2.7 X10*3/uL (1.2-4.9); Lymphocytes Percent Auto 27.8 % (20-40); Mean Corpuscular HGB Conc 30.6 g/dl (31.0-35.0); Mean Corpuscular Hemoglobin 25.7 pg (27.0-33.0); Mean Corpuscular Volume 84.1 fL (80.0-98.0); Mean Platelet Volume 9.2 fL (9.4-12.3); Monocytes Percent Auto 10.2 % (2-11); Neutrophils Absolute Auto 5.6 x10*3/uL (2.0-8.3); Neutrophils Percent Auto 57.4 % (45-73); Platelet Count 397 X10*3/uL (160-400); Red Blood Count 4.39 X10*6/uL (4.20-5.50); Red Cell Distribution Width 16.3 % (11.0-16.0); White Blood Count 9.7 X10*3/uL (4.8-10.8)
[2024-06-11 23:14] LABS: Class Alternaria alternata 0; Class Aspergillus fumigatus 0; Class Bermuda Grass 0; Class Birch 0; Class Cat Dander 3; Class Cladosporium herbarum 0; Class Cockroach 1; Class Common Ragweed 0; Class Cottonwood 0; Class Derm. pterony 0/1; Class Dermatophagoides farinae 0; Class Dog Dander 4; Class Elm 0; Class Maple Box Elder 1; Class Mountain Cedar 0; Class Mouse Urine Protein 3; Class Mugwort 0; Class Oak 0; Class Penicillium crysogenum 0; Class Rough Pigweed 0; Class Sheep Sorrel 0; Class Sycamore 0; Class Timothy Grass 0; Class Walnut Tree 0; Class White Ash 0; Class White Mulberry 0; D001 IgE D pteronyssinus 0.21 kU/L; D002 - IgE D farinae <0.10 kU/L; E001 - IgE Cat Dander 4.29 kU/L; G002 IgE Bermuda Grass <0.10 kU/L; G006 - IgE Timothy Grass <0.10 kU/L; I006-IgE Cockroach, German 0.48 kU/L; Immunoglobulin E 314 kU/L (<OR=114); M001 IgE Penicillium chrysogen <0.10 kU/L; M002 - IgE Cladosporium herbar <0.10 kU/L; M003 - IgE Aspergillus fumigat <0.10 kU/L; M006 - IgE Alternaria alternat <0.10 kU/L; T001 IgE Maple/Box Elder 0.51 kU/L; T003 IgE Common Silver Birch <0.10 kU/L; T006 - IgE Cedar, Mountain <0.10 kU/L; T007 - IgE Oak, White <0.10 kU/L; T008 IgE Elm, American <0.10 kU/L; T010 - IgE Walnut <0.10 kU/L; T011 - IgE Maple Leaf Sycamore <0.10 kU/L; T014 - IgE Cottonwood <0.10 kU/L; T015 - IgE Ash, White <0.10 kU/L; T070 - IgE White Mulberry <0.10 kU/L; W001 - IgE Ragweed, Short <0.10 kU/L; W006 - IgE Mugwort <0.10 kU/L; W014 IgE Pigweed, Common <0.10 kU/L; W018 IgE Sheep Sorrel <0.10 kU/L
== END 2024-06-08 14:09 | disposition home or self-care (01) ==
LOC: HO.LAB 14:08
PROVIDERS: PCP Internal Medicine; Visit Provider Internal Medicine Pulmonary Disease
DX: J45.40 Moderate persistent asthma, uncomplicated (principal); Z91.09 Other allergy status, other than to drugs and biological substances
CPT/HCPCS: 36415; 82785; 85025; 86003; 99212

== ENCOUNTER 2024-06-13 14:57 | Outpatient (REF) | payer OTHER, SELFPAY ==
--- NOTE | ~2024-06-13 | US_ITS ---
CLINICAL HISTORY: Z85.850 - Personal history of malignant neoplasm of thyroid US non-Thyroid Comparison: None available Findings: Status post complete thyroidectomy. No residual thyroid tissue identified. There are morphologically normal lymph nodes in the bilateral cervical chain, the largest in the level 2 region bilaterally which is a normal finding. Impression: 1. Status post thyroidectomy without residual thyroid tissue. Morphologically normal bilateral cervical lymph nodes. [employer] TI-RADS Categories TR1 and TR2 nodules do not have follow-up recommendations TR3 (FNA >= 2.5cm, F/U >= 1.5cm at 1, 3, and 5 yrs) TR4 (FNA >= 1.5cm, F/U >= 1cm at 1, 2, 3, and 5 yrs) TR5 (FNA >= 1cm, F/U >= 0.5cm annually for up to 5 yrs) This document has been electronically signed by: Venita Starr MD on 06/19/2024 07:04:53
== END 2024-06-13 14:58 | disposition home or self-care (01) ==
LOC: HO.US 14:57
PROVIDERS: PCP Internal Medicine; Visit Provider Student in an Organized Health Care Education/Training Program
DX: E03.9 Hypothyroidism, unspecified (principal); Z85.850 Personal history of malignant neoplasm of thyroid
CPT/HCPCS: 76536

== ENCOUNTER → 2024-06-13 14:59 | Outpatient (BNV) | payer OTHER, SELFPAY | PROVIDERS: PCP Internal Medicine; Visit Provider Radiology Diagnostic Radiology | DX: Z85.850 Personal history of malignant neoplasm of thyroid (principal) | CPT/HCPCS: 76536 ==

== ENCOUNTER 2024-06-28 08:27 | Outpatient (REF) | payer OTHER, SELFPAY ==
[2024-06-28 08:54] LABS: MANUAL DIFF FLAG NO
[2024-06-28 09:08] LABS: Appearance Urine Clear; Color Urine Yellow; Glucose Urine UA Negative (Negative); Leukocyte Esterase Urine Negative (Negative); Nitrite Urine Negative (Negative); Specific Gravity - Urine 1.025 (1.005-1.025); Urine Blood Negative (Negative); Urine Ketones Trace mg/dL (Negative); Urine Protein Negative (Neg-Trace)
[2024-06-28 09:08] LABS: Basophils Percent Auto 0.4 % (0-2); Eosinophils Absolute Auto 0.5 X10*3/uL (0.0-0.4); Eosinophils Percent Auto 4.8 % (0-4); Hematocrit 34.7 % (37.0-47.0); Imm Gran Abs Auto 0.03 X10*3/uL (0.00-0.03); Imm Gran Pct Auto 0.3 % (0.0-0.4); Lymphocytes Absolute Auto 2.6 X10*3/uL (1.2-4.9); Lymphocytes Percent Auto 26.7 % (20-40); Mean Corpuscular HGB Conc 31.7 g/dl (31.0-35.0); Mean Corpuscular Hemoglobin 26.6 pg (27.0-33.0); Mean Corpuscular Volume 83.8 fL (80.0-98.0); Monocytes Absolute Auto 0.8 X10*3/uL (0.1-1.2); Monocytes Percent Auto 8.2 % (2-11); Neutrophils Absolute Auto 5.9 x10*3/uL (2.0-8.3); Neutrophils Percent Auto 59.6 % (45-73); Platelet Count 356 X10*3/uL (160-400); Red Blood Count 4.14 X10*6/uL (4.20-5.50); Red Cell Distribution Width 15.9 % (11.0-16.0); White Blood Count 9.8 X10*3/uL (4.8-10.8)
[2024-06-28 09:45] LABS: Alanine Aminotransferase 81 U/L (0-31); Albumin Level 3.3 g/dL (3.5-5.0); Alkaline Phosphatase 82 U/L (39-117); Anion Gap 9 (12-20); Aspartate Amino Transferase 57 U/L (5-31); Bilirubin Total 0.2 mg/dL (0.0-1.0); Blood Urea Nitrogen 12 mg/dL (9-16); Calcium 8.7 mg/dL (8.4-10.2); Carbon Dioxide 27 mmol/L (22-29); Chloride 108 mmol/L (96-108); Cholesterol 123 mg/dL (<200); Estimated Glomerular Filt Rate > 60; Glucose Fasting 107 mg/dL (60-99); HDL Cholesterol 32 mg/dL (>40); LDL Cholesterol Calculated 57 mg/dL (<100); Potassium 4.1 mmol/L (3.3-5.1); Sodium 140 mmol/L (135-145); Total Protein 7.7 g/dL (6.5-8.0); Triglycerides 172 mg/dL (<150)
[2024-06-28 10:03] LABS: Free T4 (Free Thyroxine) 1.29 ng/dL (0.71-1.85); Thyroid Stimulating Hormone 0.53 uIU/mL (0.32-4.0); Vitamin D 25-OH Total 29.8 ng/mL (>30)
[2024-07-05 07:48] LABS: FIB-ALT 61 U/L (6-29); FIB-Alpha-2-Macroglobulin 146 mg/dL (106-279); FIB-Apolipoprotein A1 129 mg/dL (101-198); FIB-GGT 25 U/L (3-50); FIB-Haptoglobin 196 mg/dL (43-212); FIB-Total Bilirubin 0.2 mg/dL (0.2-1.2); Liver Fibrosis Score 0.04; Liver Fibrosis Stage F0; Nec Inflam Act Grade A0-A1; Nec Inflam Act Score 0.28; Reference ID 5309886
== END 2024-06-28 08:28 | disposition home or self-care (01) ==
LOC: HO.LAB 08:27
PROVIDERS: PCP Internal Medicine; Visit Provider Internal Medicine
DX: D64.9 Anemia, unspecified (principal); E78.00 Pure hypercholesterolemia, unspecified; R30.0 Dysuria; E03.9 Hypothyroidism, unspecified; E55.9 Vitamin D deficiency, unspecified; R79.89 Other specified abnormal findings of blood chemistry
CPT/HCPCS: 36415; 80053; 80061; 81003; 81596; 82306; 84439; 84443; 85025

== ENCOUNTER 2024-06-29 12:54 | Outpatient (AMB) | payer OTHER, SELFPAY ==
[2024-06-29 13:15] VITALS: BP 110/72; PULSE 120; O2SAT 97; BMI 63.1
--- NOTE | 2024-06-29 13:15 | MHC.PC.OV ---
Vital Signs 06/29/24 13:15 Height 5 ft 2 in Weight 345 lb 2 oz BMI 63.1 BP 110/72 Blood Pressure Location Lt brachial Position Sitting Pulse 120 H Pulse Source Pulse Oximeter Pulse Oximetry (%) 97 Oxygen Delivery Method Room Air Intake Visit Reasons: 4mth f/u Interactive Multimedia Designer Required: No Accompanied by: Self / Same As Patient Allergies morphine [MORPHINE] Allergy (Intermediate, Verified 06/29/24 13:52) WBC ELEVATED/ N/V shellfish derived [SHELLFISH DERIVED] Allergy (Intermediate, Verified 06/29/24 13:52) HIVES iodine [IODINE] Allergy (Mild, Verified 06/29/24 13:52) RASH duloxetine Adverse Reaction (Intermediate, Verified 06/29/24 13:52) vomiting Medication List - Last Reconciled 06/29/24 by Lavon Richardson MD aripiprazole 10 mg PO DAILY bupropion HCl XL 300 mg PO QAM 30 days zrzxhagvzj-ijjylmszayypx-zxfx 50-325-40 mg 1 tab PO Q6-8H PRN 30 days cholecalciferol (vitamin D3) 25 mcg PO DAILY clonazepam (Klonopin) 1 mg PO DAILY PRN 30 days fluoxetine 20 mg PO DAILY 30 days fluticasone propion-salmeterol 500-50 mcg/dose (Advair Diskus) 1 inh inhalation BID 30 days gabapentin 800 mg PO QID 30 days hydroxyzine HCl 50 mg PO TID PRN 30 days ipratropium-albuterol 0.5 mg-3 mg(2.5 mg base)/3 mL 3 mL inhalation Q4-6H PRN 30 days iron,carbonyl-vitamin C 65 mg iron- 125 mg (Vitron-C) 1 tab PO DAILY levothyroxine 175 mcg PO DAILY magnesium oxide 400 mg PO DAILY 30 days mecobalamin (vitamin B12) 1,000 mcg sublingual DAILY [NEBULIZER Use as directed as needed] omalizumab (Xolair) 300 mg subcut Q2W 28 days omeprazole 40 mg PO DAILY 90 days ondansetron 4 mg PO Q12H pantoprazole 40 mg PO DAILY polyethylene glycol 3350 17 grams PO DAILY sucralfate 10 mL PO BID thiamine HCl (vitamin B1) 100 mg PO DAILY tizanidine 4 mg PO TID PRN 30 days topiramate 50 mg PO BID 30 days Ventolin HFA 90 mcg/actuation (albuterol sulfate) 2 puffs inhalation Q4-6H PRN NS vitamin A palmitate 10,000 units PO DAILY Tobacco use date assessed: 06/29/24 Dental Screening Dental Screen Date: 06/29/24 Did you have a dental visit in the last 12 months?: Yes Did you have a dental problem in the last 6 months where you did not have access to dental care?: No Was dental information given to patient?: Patient has dentist HPI 4mth f/u HPI Details Patient comes in today for her follow-up visit She is complaining of recurrent, severe and painful muscle spasms all over lately States that even simple movements nowadays can trigger a bout of painful spasms (including sneezing, yawning, or even getting in and out of a car) and she has been having a hard time doing anything recently, including most daily or routine activities, for fear of triggering her muscle spasms She describes the muscle spasms as very painful, which she states are even 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 than 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 , and are often followed by her muscles becoming extremely rigid, and she would sometimes feel like she is about to faint from severe pain She recalls that her father and paternal grandmother had similar issues with frequent muscle spasms and is wondering if heredity or family history has something to do with her current issues Patient states that she has been managing these symptoms with Tizanidine, which she states is not really helping She adds that she has a lump on the back of her neck that has been present for a while now and feels that it has gotten bigger lately States that she has also been experiencing a frequent sensation of emptiness in her head lately but she denies experiencing any issues with her memory She denies any headaches or dizziness Denies any chest pains, no increased shortness of breath No nausea/vomiting, no abdominal pain No change in bowel habits noted She is seeing endocrinology for her thyroid condition and states that her thyroid medication was just recently adjusted in dosage She has gained weight again since her last visit - review of her past visits over the past couple of years have shown that patient has been progressively gaining weight with each visit She has been following up with weight management here at [facility] and was actually scheduled for bariatric surgery last year but states that she became concerned (she reportedly had a dream that she was going to on the operating table) and pulled out of her gastric bypass surgery about 2-3 days prior to her scheduled procedure States that she was subsequently discharged from weight management she was told that if she does not want to have surgery done, there is nothing else they have to offer her She also mentioned that endocrinology has advised her that she would be a candidate for a GLP-1's to help her with weight loss and was supposedly advised to speak to her PCP about starting her on these She had her follow-up labs done yesterday - to discuss her results [facility] Medical History (Updated 07/01/24 @ 11:42 by Lavon Richardson MD) Multiple environmental allergies Morbid obesity with BMI of 60.0-69.9, adult MISAEL (obstructive sleep apnea) GERD (gastroesophageal reflux disease) Anemia Morbid obesity Hypersomnia Loud snoring Blurry vision, bilateral Chronic migraine without aura PTSD (post-traumatic stress disorder) Bipolar depression Depression Morbid obesity with BMI of 45.0-49.9, adult Migraine Bilateral foot pain Fibromyalgia History of thyroid cancer Smoker Papillary thyroid carcinoma Post-surgical hypothyroidism Bilateral lower extremity edema Elevated LFTs Anxiety Asthma Hypothyroidism Cervical lymphadenopathy Vitamin D deficiency Thyroid cancer Surgical History History of esophagogastroduodenoscopy (EGD) Hx of tubal ligation History of surgery Hx of lymph node biopsy Hx of total thyroidectomy (~05/2020) Hx of section Hx of cholecystectomy Family History Father Diabetes Asthma Hypertension Mother Diabetes Hypertension Multiple sclerosis Daughter No problems noted. Daughter No problems noted. Daughter No problems noted. Daughter Deaf Asthma Daughter Deaf Son No problems noted. Son Asthma Son No problems noted. Social History Household Members: Spouse Housing: Apartment Are you a primary memory care program resident to a significant other at home: No Do you presently have visiting nurse or other home services: No Alcohol intake: current Alcohol intake frequency: holidays/special occasions only Patient Tobacco Use Status: Former Tobacco user Tobacco use type: Cigarette Years Smoked: 20 e-Cigarette/Vaping Use: Former Use Second Hand Smoke Exposure: Yes service: No Current occupational status: unemployed Current occupational exposures/hazards: No Cognitive needs: No Hearing needs: No Vision needs: No Female Reproductive History Menstrual Age of Menarche: 12 Questionnaire PHQ-9 Over the last 2 weeks, how often have you been bothered by any of the following problems? 1. Little interest or pleasure in doing things: nearly every day 2. Feeling down, depressed, or hopeless: nearly every day 3. Trouble falling or staying asleep, or sleeping too much: nearly every day 4. Feeling tired or having little energy: more than half the days 5. Poor appetite or overeating: more than half the days 6. Feeling bad about yourself - or that you are a failure or have let yourself or your family down: more than half the days 7. Trouble concentrating on things, such as reading the newspaper or watching television: not at all 8. Moving or speaking so slowly that other people could have noticed. Or the opposite - being so fidgety or restless that you have been moving around a lot more than usual: not at all 9. Thoughts that you would be better off or of hurting yourself in some way: not at all Total score: 15 Depression Screening Interpretation: Positive Depression Screening Follow-up: Existing condition, In treatment and Community Mental Health Worker F/U Depression Screening Done: Yes 03426 - PHQ-9 Billing: Yes Source: Developed by Drs. Alexander Avila, Shirlene Travis, Valdemar Cruz and colleagues, with an educational dilma from [employer]. Thrive Questionnaire Date Thrive assessed: 06/29/24 I am a: Patient What is your living situation today?: I have a steady place to live Within the past 12 months, did the food you bought not last and you didn't have the money to get more?: Often true Within the past 12 months, did you worry whether your food would run out before you got money to buy more?: Often true Do you have trouble paying for medicines?: No Do you have trouble getting transportation to medical appointments?: No Do you have trouble paying your heating and electricity bill?: No Do you have trouble taking care of your child, family member or friend?: No Do you have trouble with day-to-day activities such as bathing, preparing meals, shopping, managing finances, etc.?: No Are you currently unemployed and looking for a job?: Yes Are you interested in more education?: No Please select the resources that you would like help with: None Currently or been in a relationship where the following occur: No concerns reported THRIVE Score: 2 AUDIT C Alcohol Use Questionnaire (AUDIT-C) 1. How often do you have a drink containing alcohol?: Never 3. How often do you have six or more drinks on one occasion?: Never Total Score: 0 Score Reviewed/Action Taken: Yes RUSSELL-7 AMB Questionnaire RUSSELL-7 Date RUSSELL - 7 assessed: 06/29/24 Feeling nervous, anxious, or on edge: 2 = More than half the days Not being able to stop or control worryin = More than half the days Worrying too much about different things: 2 = More than half the days Trouble relaxin = More than half the days Being so restless that it is hard to sit still: 2 = More than half the days Becoming easily annoyed or irritable: 2 = More than half the days Feeling afraid as if something awful might happen: 1 = Several days Total RUSSELL-7 score (0-4 normal; 5-9 mild; 10-14 moderate; 15-21 severe): 13 Source: Developed by Drs. Alexander Avila, Shirlene Travis, Valdemar Cruz and colleagues, with an educational dilma from [employer]. Review of Systems Const Denies chills, Reports fatigue, Denies fever(s), Denies headache(s) and Reports weight gain ENT Denies dysphagia, Denies dizziness, Denies otalgia, Denies headache(s), Reports neck mass ((+) lump on the back of her neck - increasing in size lately), Denies neck pain, Denies odynophagia and Denies sore throat Card Denies chest pain, Denies irregular heart rhythm, Denies palpitations and Reports dyspnea on exertion (mild) Resp Denies chest congestion, Denies cough and Reports dyspnea on exertion (mild) GI Denies abdominal pain, Denies constipation, Denies dysphagia, Denies heartburn, Denies diarrhea, Denies nausea, Denies odynophagia and Denies vomiting Denies urinary frequency, Denies dysuria and Denies urinary urgency Musc Reports back pain (on and off), Reports myalgias (diffuse), Denies arthralgias, Reports muscle cramps (recurrent painful muscle cramps all over - see HPI for details) and Denies neck pain Skin/Breast Denies rash Neuro Details: c/o frequent sensation of emptiness in her head , similar to brain fog - see HPI Denies dizziness, Denies headache(s), Denies memory loss and Denies paresthesias Psych Reports anxiety, Denies depression and Denies memory loss Endo Reports fatigue and Denies palpitations Parish/Lymph Denies easy bruising Physical exam (Primary Care) Vital Signs: Last Vital Signs Pulse 120 H 06/29/24 13:15 BP 110/72 06/29/24 13:15 Pulse Ox 97 06/29/24 13:15 Oxygen Delivery Method Room Air 06/29/24 13:15 BMI result Body Mass Index 63.1 Tobacco/Smoking Status: Tobacco use Status Tobacco use date assessed 06/29/24 06/29/24 13:21 Patient Tobacco Use Status Former Tobacco user 06/29/24 13:21 Tobacco use type Cigarette 06/29/24 13:21 e-Cigarette/Vaping Use Former Use 06/29/24 13:21 PHQ-9: PHQ-9 Score PHQ-9: Total score 15 06/29/24 14:05 Depression Screening Interpretation: Positive Depression Screening Follow-up: Existing condition, In treatment and Community Mental Health Worker F/U Thrive Assessment: Date of Thrive Assessment Date Thrive assessed 06/29/24 06/29/24 13:21 Currently or been in a relationship where the following occur: No concerns reported Const General: no acute distress and alert HENMT Ears: TM's normal bilaterally and EAC's normal Throat: Yes posterior oropharynx normal and Yes tonsils normal (no TP congestion) Neck Other: (+) palpable nodular lesion over the back of the neck Neck: Yes supple and No lymphadenopathy Thyroid: Thyroid normal Resp Auscultation: clear to auscultation bilaterally, no rales and no wheezes Cardio Rate: regular rate Rhythm: regular rhythm Heart sounds: no murmurs GI Palpation (GI): Soft to palpation and nontender Auscultation: normal bowel sounds General: Yes no CVA tenderness Back/Spine/Pelvis Back: no CVA tenderness Thoracic/Lumbar Spine: lumbar spinal tenderness Skin Rashes: no rashes Extrem General: Yes no clubbing, cyanosis or edema Results Reviewed Results Reviewed: Laboratory Tests 06/28/24 08:53 WBC 9.8 Hgb 11.0 L Hct 34.7 L Plt Count 356 Sodium 140 Potassium 4.1 Creatinine 0.82 Estimated GFR > 60 Fasting Glucose 107 H AST 57 H ALT 81 H Triglycerides 172 H Cholesterol 123 LDL Cholesterol, Calc 57 HDL Cholesterol 32 L 25-OH Vitamin D Total 29.8 L TSH 0.53 Free T4 1.29 Coding Level of Care Code Est Pt Level 4 (97925) Complex EM visit Add On G2211 Diagnoses Severe persistent asthma without complication J45.50 Asthma severity: severe Asthma persistence: persistent Asthma complication type: uncomplicated Multiple environmental allergies Z91.09 MISAEL (obstructive sleep apnea) G47.33 Fibromyalgia M79.7 Migraine without status migrainosus, not intractable, unspecified migraine type G43.909 Migraine type: unspecified Status migrainosus presence: without status migrainosus Intractability: not intractable Elevated LFTs R79.89 Gastroesophageal reflux disease without esophagitis K21.9 Esophagitis presence: without esophagitis Post-surgical hypothyroidism E89.0 Papillary thyroid carcinoma C73 Vitamin D deficiency E55.9 Mild anemia D64.9 Cramps, muscle, general R25.2 Lipoma of neck D17.0 Lipoma location: neck Anxiety F41.9 Bipolar depression F31.9 Morbid obesity with BMI of 60.0-69.9, adult E66.01; Z68.44 Additional Codes PHQ-9 - 37983 - PHQ-9 Billing: Yes ([id number]) Assessment & Plan Assessment & Plan (1) Asthma: Code(s): J45.909 - Unspecified asthma, uncomplicated Category: Medical Qualifiers: Asthma severity: severe Asthma persistence: persistent Asthma complication type: uncomplicated Qualified Code(s): J45.50 - Severe persistent asthma, uncomplicated Plan: Currently stable/controlled Continue Advair Diskus 500-50 mcg 1 inhalation BID and Albuterol HFA 2 inhalations every 6 hours as needed; she uses Duoneb with her nebulizer QID PRN when needed in place of her Albuterol inhaler when her asthma acts up or flares up She has also been started on Xolair injections recently, which she states has helped a lot with her asthma Follow up with [facility] Pulmonary (Dr. Cm) as scheduled (2) Multiple environmental allergies: Code(s): Z91.09 - Other allergy status, other than to drugs and biological substances Category: Medical Plan: She had allergy testing done last month, which came out positive for allergies to dogs, cats, mouse and cockroaches, among others Continue Hydroxyzine 50 mg TID PRN and Xolair injections 300 mg SQ Q 2 weeks (3) MISAEL (obstructive sleep apnea): Code(s): G47.33 - Obstructive sleep apnea (adult) (pediatric) Category: Medical Plan: Patient continues to use her CPAP device at 12 cm of water regularly when sleeping every night and she feels that CPAP therapy has helped her a lot Follow up with Sleep Medicine as scheduled (4) Fibromyalgia: Code(s): M79.7 - Fibromyalgia Category: Medical Plan: Continue Gabapentin 800 mg TID and Tizanidine 4 mg TID PRN We tried switching her Gabapentin over to Pregabalin last year but this was denied by insurance She was also seen by rheumatology last year and was advised to just continue on her current Rx and to follow up with them on an as needed basis as they reportedly do not treat fibromyalgia any much differently than primary care (5) Migraine: Code(s): G43.909 - Migraine, unspecified, not intractable, without status migrainosus Category: Medical Qualifiers: Migraine type: unspecified Status migrainosus presence: without status migrainosus Intractability: not intractable Qualified Code(s): G43.909 - Migraine, unspecified, not intractable, without status migrainosus Plan: Stable/controlled on prophylactic Tx with Topiramate 50 mg BID Reinforced avoidance of all potential migraine triggers Continue Fioricet 50-325-40 mg PRN Follow up with neurology as scheduled (6) Elevated LFTs: Code(s): R79.89 - Other specified abnormal findings of blood chemistry Category: Medical Plan: Have again advised patient that her LFTs remain elevated on her labs done last month, and that these are likely related to her weight Her liver fibrosis panel is still pending at this time Will continue to monitor her LFTs regularly (7) GERD (gastroesophageal reflux disease): Code(s): K21.9 - Gastro-esophageal reflux disease without esophagitis Category: Medical Qualifiers: Esophagitis presence: without esophagitis Qualified Code(s): K21.9 - Gastro-esophageal reflux disease without esophagitis Plan: Dietary restrictions reinforced Upper GI series done a couple of years ago revealed (+) large gastroesophageal reflux into the pharynx; no hiatal hernia was seen Continue Omeprazole 40 mg QD Follow up with GI as scheduled (8) Post-surgical hypothyroidism: Code(s): E89.0 - Postprocedural hypothyroidism Category: Medical Plan: Her TFTs were within normal range on her labs done last month Continue Levothyroxine 175 mcg QD Will have patient recheck her TFTs in 4 months for follow up Follow up with endocrinology as scheduled (9) Papillary thyroid carcinoma: Comment: S/P total thyroidectomy by Dr. Cosme in May 2020 Code(s): C73 - Malignant neoplasm of thyroid gland Category: Medical Plan: Head and neck US done a couple of weeks ago revealed status post thyroidectomy without residual thyroid tissue and morphologically normal bilateral cervical lymph nodes Follow up with endocrinology as scheduled for continuing surveillance (10) Vitamin D deficiency: Code(s): E55.9 - Vitamin D deficiency, unspecified Category: Medical Plan: Continue Vitamin D3 1000 units QD (11) Mild anemia: Code(s): D64.9 - Anemia, unspecified Category: Medical Plan: Her H/H was at 11.0/34.7 on her labs done yesterday Will continue to monitor her CBC regularly Will include labs for anemia work ups when she goes for her follow up labs in 4 months (12) Cramps, muscle, general: Code(s): R25.2 - Cramp and spasm Category: Medical Plan: Patient states that she has been taking Tizanidine for her generalized on and off muscle cramping pains for a while now without any relief Will try switching her over to Methocarbamol 500 mg TID PRN Have advised patient that her recent recurrent muscle cramping are likely due to physical decompensation as well as related to her progressive weight gain, as she has gained almost 70 pounds in the past 6 months Explained to patient that severe obesity (her BMI is now over 63 kg/m2) can significantly increase a person's risk of experiencing muscle cramps due to a number of reasons, including added strain on one's muscles from carrying the excess weight (increased mechanical stress), impaired blood flow to the muscles due to the effect of obesity, electrolyte imbalance and inflammation (obesity is associated with chronic low-grade inflammation, which can irritate muscle tissues and contribute to pain and cramping) but patient still strongly believes that she may have some family history that predisposes her to muscle cramping, which I have explained is much less likely She would like to see a specialist for her muscles to check this out further - per her request, I will try referring her to physiatry/physical medicine and rehab for further evaluation although I have advised her that they will likely tell her the exact same thing that I have just mentioned to her (13) Lipoma: Code(s): D17.9 - Benign lipomatous neoplasm, unspecified Category: Medical Qualifiers: Lipoma location: neck Qualified Code(s): D17.0 - Benign lipomatous neoplasm of skin and subcutaneous tissue of head, face and neck Plan: Have advised patient that the mass she describes over the back of her neck is a lipoma As she reports that the lipoma has gotten bigger lately and she would like to have it removed if possible, will refer her to surgery for consideration for surgical excision of the lipoma (14) Anxiety: Code(s): F41.9 - Anxiety disorder, unspecified Category: Medical Plan: Continue Clonazepam 1 mg QD PRN and Hydroxyzine 50 mg TID PRN Continue Fluoxetine 20 mg QD and Bupropion XL 300 mg Q AM (15) Bipolar depression: Code(s): F31.9 - Bipolar disorder, unspecified Category: Medical Plan: Continue Bupropion XL 300 mg Q AM, Fluoxetine 20 mg QD and Aripiprazole 10 mg QD She is on Topiramate 25 mg Q HS for her migraine - is advised that this can also help as a mood stabilizer Follow up with psychiatry as scheduled (16) Morbid obesity with BMI of 60.0-69.9, adult: Code(s): E66.01 - Morbid (severe) obesity due to excess calories; Z68.44 - Body mass index [BMI] 60.0-69.9, adult Category: Medical Plan: Reinforced diet/ exercise and weight loss are pretty much unrealistic at this time due to her recent complaints of debilitating muscle cramps that are triggered even by routine daily activities She was following up with weight management here at [facility] last year but was discharged after she cancelled her bariatric surgery - was supposedly advised that if she does not want to undergo gastric bypass surgery, then they have nothing else to offer her Patient claims that she was advised by endocrinology to speak to us about starting her on a GLP-1 to help her lose weight and was reportedly advised that her Hx of papillary thyroid cancer is not a contraindication for use of these Rx Upon review of her most recent endocrinology visit note, have advised patient that per endocrinology, she would be a good candidate for weight loss medications such as GLP 1 agonists, and they will discuss this further with her when they see her for next follow up visit. She has been advised to discuss with her primary care physician about a referral to another weight management program in the state as she was discharged from the program here at [facility] Have explained to patient that due to her complex thyroid history, I would prefer to leave it up to Dr. Cifuentes to prescribe and manage her GLP-1 Rx if she were to be started on it to help her lose weight I will go ahead and try to refer her to the MEDICAL weight management program at [facility] to help her manage her obesity and weight loss Plan Follow up in 4 months Orders: Orders Lipid Panel 4 Months E78.00 - Pure hypercholesterolemia, unspecified Hemoglobin A1c 4 Months R73.01 - Impaired fasting glucose IRON PROFILE 4 Months D50.9 - Iron deficiency anemia, unspecified Thyroid Stimulating Hormone 4 Months E03.9 - Hypothyroidism, unspecified UA CC w/rflx Micro + Cult 4 Months R30.0 - Dysuria Hepatitis C Viral Load 4 Months Z86.19 - Personal history of other infectious and parasitic diseases Complete Blood Count Auto Diff 4 Months D64.9 - Anemia, unspecified Comprehensive [place]. Panel Fast 4 Months E78.00 - Pure hypercholesterolemia, unspecified Free T4 (Free Thyroxine) 4 Months E03.9 - Hypothyroidism, unspecified Vitamin D 25-OH Total 4 Months E55.9 - Vitamin D deficiency, unspecified Vitamin B12 and Folate 4 Months E53.8 - Deficiency of other specified B group vitamins Referrals Physiatry Referral G24.9 - Dystonia, unspecified General Surgery Referral D17.9 - Benign lipomatous neoplasm, unspecified Medical Weight Management Referral E66.01 - Morbid (severe) obesity due to excess calories, Z68.44 - Body mass index [BMI] 60.0-69.9, adult Medications: New methocarbamol 500 mg PO TID PRN 90 tabs 0RF muscle spasms
--- OUTSIDE RECORDS SUMMARY | 2024-06-29 14:42 | XMS_ITS | Encounter Summary ---
[facility] Address [address] [place] [address] Care Team Providers Care Lambskin Trimmer Name Role Phone Patsy Narayanan MD Primary Care Provider Unavail able Reason for Visit * Reason Comments Weakness - Generalized Encounter Details Date Type Department Care Team (Late st Contact Info) Description 05/30/2024 5:56 AM EST - 05/30/2024 6:54 AM EST Emergency [facility] Emergency [address] [place] [id number] Max Daniels MD [address] [place] [address] Muscle spasm (Primary Dx) Discharge Disposition: Home or Self Care Social History Tobacco Use Types Packs/Day Years Used Date Smoking Tobacco: Former Cigarettes Smokeless Tobacco: Never Tobacco Cessation:Counseling Given: Not Answered Alcohol Use Standard Drinks/Week Comments Never 0 (1 standard drink = 0.6 oz pur e alcohol) Sex and Gender Information Value Date Recorded Sex Assigned at Not on file Gender Identity Not on file Sexual Orientation Not on file documented as of this encounter Last Filed Vital Signs Vital Sign Reading Time Taken Comments Blood Pressure 90/56 05/30/2024 5:07 AM EST Pulse 115 05/30/2024 5:07 AM EST Temperature 36.6 ??C (97.9 ??F) 05/30/2024 5:07 AM ES T Respiratory Rate 22 05/30/2024 5:07 AM EST Oxygen Saturation 96% 05/30/2024 5:07 AM EST Inhaled Oxygen Concentration - - Weight 141 kg (310 lb) 05/30/2024 5:07 AM EST Height 157.5 cm (5' 2 ) 05/30/2024 5:07 AM EST Body Mass Index 56.7 05/30/2024 5:07 AM EST documented in this encounter Discharge Instructions * Discharge Instructions* Max Daniels MD - 05/30/2024 6:46 AM EST Your testing today shows that your white count is elevated at 13,000, this is of unclear etiology. You are refusing to allow us to do any further testing at this time. You may return to the emergencydepartment at anytime for reevaluation of your muscle spasms. You should follow-up with your neurologist for further testing. * Attachments The following attachments cannot be sent through Care Everywhere. * Cramp: Muscle (Sinhala) documented in this encounter Discharge Disposition Disposition Code Departure Means Destination Comment s Home or Self Care documented in this encounter Progress Notes * Nighat Beatty RN - 05/30/2024 6:43 AM EST Pt with security and Jovana Aparicio RN into purple pod to be processed d/t positive suicide screening. This RN to purple pod to assist. Pt became agitated and hostile. Pt refusing to proceed with changing out of personal clothes and into hospital clothing. This RN, sales financial analyst Arabella Mccloud, and additional staff in purple pod with security guards x 2 to de-escalate pt. This RN expressed to pt During triage, you screened positively on the suicide screening. For your safety, we have policies in place to help keep you safe while you're here. Pt yelling I'm not going to be kept here. It's Ronan. I have 8 kids. You're not going to keep me here. I've been suicidal in the past, but that doesn't mean now. This RN expressed understanding, stating I understand that you've had those thoughts and feelings in the past. It is not a crime to have felt that way. Now that you've expressed that, however, it's important that we have a provider see you to evaluate to ensure that you're currently safe from risk of harm to yourself. Pt yelling over this RN, grabbed her cellphone and began recording all staff present. This RN, seed potato cutter and security informing patient that filming staff is not allowed in hospital per hospital policies. Pt began yelling I know the laws. It's the first, second, and third ammendment; I am allowed to do whatever I want. Pt refusing to relinquish cellphone per hospital policy. Dr Daniels requested to purple pod by seed potato cutter. Dr. Daniels to pt's side, spoke with pt who denied SI/HI repeatedly. Pt reports she self-presented to ER this morning d/t involuntary movements she has experienced for a long time, and believes they may be related to her hx of MS. Pt filmed parts of this interaction, and posted some of this interaction on Facebook Live despite staff informing pt that filming is prohibited. After denying SI/HI multiple times to Dr. Daniels with this RN present, pt called her to request that he come to [facility] to bring her home. Per Dr. Daniels, OK for pt to cease the process of getting changed into hospital clothing and OK for pt to be discharged at this time. * Jovana Aparicio RN - 05/30/2024 4:50 AM EST Pt arrives by EMS C/O dystonia . Pt was taking a shower tonight and her muscles were getting stuck while she was cleaning herself. Pt states hx of MS and is in remission from thyroid and lymphaticcancer. Pt was diagnosed with MS 2 years ago and has been experiencing episodes of her muscles getting stuck with certain movement and associated cramping feeling. During episodes she is unable to move her muscles d/t pain, but symptoms resolve after a few seconds and pt is able to control her muscles again. Pt states that episodes began occurring prior to MS diagnosis. * Sue Box RN - 05/30/2024 4:45 AM EST Coming from home, reports difficulty moving to EMS, states she has dystonia and it causes difficulty moving around Sue Box RN 05/30/24445 * Max Daniels MD - 05/30/2024 4:36 AM EST Emergency Medicine Note Patient Name: Maira Roque Initial Evaluation: 05/30/2024 : 1985 Patient's PCP: Patsy Narayanan MD Emergency Physician: Max Daniels MD History of Present Illness Chief Complaint: Chief Complaint Patient presents with Weakness - Generalized HPI: 39-year-old female, history of of lymphoma, multiple sclerosis, presents with complaint of muscle spasm? Patient states that she has been having increasing episodes of her muscles locking up on her when she is trying to do things. This happened this morning and her recommended she cometo the emergency department for evaluation. During her screening in triage she made some vague statements regarding suicidal ideation, and when she was placed in aqua pod for processing she became extremely belligerent and uncooperative. She did not assault any staff members, but she was reporting staff members were trying to help her on Facebook live. She stated she was being held against her will. I was asked to come evaluate the patient, she denied suicidal ideation, she refused further evaluation. Patient appears to have the capacity to make those medical decisions, she is slurring her words slightly, but she states this is her baseline. She reports that she takes gabapentin for her chronic pain and this is what makes her slur her words. ROS: I have performed a ROS with the pertinent positives and negatives documented in the history ofpresent illness. Previous History Past Medical History: Diagnosis Date Lymphoma (CMS/HCC) Multiple sclerosis (CMS/HCC) Thyroid cancer (CMS/HCC) Past Surgical History: Procedure Laterality Date SECTION CHOLECYSTECTOMY THYROIDECTOMY Social History Tobacco Use Smoking status: Former Types: Cigarettes Smokeless tobacco: Never Vaping Use Vaping status: Never Used Substance Use Topics Alcohol use: Never Drug use: No No family history on file. is allergic to morphine and shellfish derived. No current facility-administered medications on file prior to encounter. No current outpatient medications on file prior to encounter. Physical Exam ED Triage Vitals [05/30/24 0507] Temp Heart Rate Resp BP 36.6 ??C (97.9 ??F) (!) 115 22 90/56 SpO2 Temp Source Heart Rate Source Patient Position 96 % Oral -- Sitting BP Location FiO2 (%) Left arm -- General: Well-appearing, well nourished, in no acute distress Extremities: Normal ROM, No edema Skin: Warm and dry Neuro: Alert and oriented, no obvious focal deficits Results Labs Reviewed BASIC METABOLIC PANEL - Abnormal Result Value Sodium 134 Potassium 4.2 Chloride 103 CO2 20 (*) Anion Gap 11 Glucose 113 (*) BUN 10 Creatinine 1.07 eGFR 68 BUN/Creatinine Ratio 9.3 Calcium 8.8 CBC WITH AUTO DIFFERENTIAL - Abnormal WBC 13.1 (*) RBC 4.50 Hemoglobin 11.6 Hematocrit 37.9 MCV 85.2 MCH 26.1 (*) MCHC 30.6 (*) RDW 16.3 (*) Platelets 435 (*) MPV 9.1 NRBC 0.0 NRBC Absolute 0.00 Neutrophils Relative 51.2 Lymphocytes Relative 34.7 Monocytes Relative 7.3 Eosinophils Relative 5.4 Basophils Relative 0.6 Immature Granulocytes Relative 0.8 Neutrophils Absolute 6.71 Lymphocytes Absolute 4.53 Monocytes Absolute 0.95 Eosinophils Absolute 0.70 (*) Basophils Absolute 0.08 Immature Granulocytes Absolute 0.10 (*) ACETAMINOPHEN LEVEL - Abnormal Acetaminophen Level <2.0 (*) ETHANOL - Abnormal Ethanol Level 298 (*) SALICYLATE LEVEL - Abnormal Salicylate Level <1.7 (*) MAGNESIUM - Normal Magnesium 2.2 DRUG ABUSE SCREEN 8A PANEL, URINE - Normal Amphetamine Screen, Ur Negative Barbiturate Screen, Ur Negative Benzodiazepine Screen, Ur Negative Cocaine Screen, Ur Negative Opiate Screen, Ur Negative Cannabinoid (THC) Screen, Ur Negative Oxycodone Screen, Ur Negative Fentanyl, Ur Negative Narrative: Assay cutoffs: Amphetamines 1000 ng/mL Barbiturates 200 ng/mL Benzodiazepines 200 ng/mL Cocaine 300 ng/mL Fentanyl 1 ng/mL Opiates 300 ng/mL Oxycodone 100 ng/mL THC 50 ng/mL Semi-quantitative assay for screening purposes only. Unconfirmed screening result should not be used for non-medical purposes. *ALTERNATE METHOD CONFIRMATION DONE UPON REQUEST ONLY* BUPRENORPHINE SCREEN, URINE - Normal Buprenorphine Screen Urine Negative Narrative: Assay cutoff 5 ng/mL Semi-quantitative assay for screening purposes only. Unconfirmed screening result should not be used for non-medical purposes. *ALTERNATE METHOD CONFIRMATION DONE UPON REQUEST ONLY* PHENCYCLIDINE, URINE - Normal PCP Scrn, Ur Negative METHADONE SCREEN, URINE - Normal Methadone Screen, Urine Negative CBC AND DIFFERENTIAL Narrative: The following orders were created for panel order CBC and differential. Procedure Abnormality Status --------- ------ CBC auto differential[[id number]] Abnormal Final result Please view results for these tests on the individual orders. Abnormal Labs Reviewed BASIC METABOLIC PANEL - Abnormal; Notable for the following components: Result Value CO2 20 (*) Glucose 113 (*) All other components within normal limits CBC WITH AUTO DIFFERENTIAL - Abnormal; Notable for the following components: WBC 13.1 (*) MCH 26.1 (*) MCHC 30.6 (*) RDW 16.3 (*) Platelets 435 (*) Eosinophils Absolute 0.70 (*) Immature Granulocytes Absolute 0.10 (*) All other components within normal limits ACETAMINOPHEN LEVEL - Abnormal; Notable for the following components: Acetaminophen Level <2.0 (*) All other components within normal limits ETHANOL - Abnormal; Notable for the following components: Ethanol Level 298 (*) All other components within normal limits SALICYLATE LEVEL - Abnormal; Notable for the following components: Salicylate Level <1.7 (*) All other components within normal limits No orders to display I have discussed the incidental/abnormal imaging and/or lab abnormalities with the patient and haveinstructed them the need for further evaluation and workup with their primary care doctor. I have provided the patient with a paper copy of the abnormality. The laboratory results, imaging results and other diagnostic exam results were reviewed in the EMR. EKG Interpretation Critical Care Time None ? Medical Decision Making Medications - No data to display Clinical Impressions as of 05/30/24 06 Muscle spasm 39-year-old female, history of multiple sclerosis, presents with muscle spasms. Potential etiologies for symptoms include but not limited to dehydration, electrolyte abnormality, possible progressionof her multiple sclerosis. Patient is refusing further evaluation at this time, she appears to havethe capacity to make that decision, she will be discharged home into the care of her . Procedures Procedures Diagnosis 1. Muscle spasm Disposition Discharge ED Prescriptions None Physician Attestation Max Daniels MD 05/30/24651 documented in this encounter Plan of Treatment Not on file documented as of this encounter Procedures Procedure Name Priority Date/Time Associated Diagnosis Comments DRUG ABUSE SCREEN 8A PANEL, URINE STAT 05/30/2024 5:58 AM EST BUPRENORPHINE SCREEN, URINE STAT 05/30/2024 5:58 AM EST METHADONE SCREEN, URINE STAT 05/30/2024 5:58 AM EST PHENCYCLIDINE, URINE STAT 05/30/2024 5:58 AM EST CBC WITH AUTO DIFFERENTIAL STAT 05/30/2024 5:52 AM EST CBC AND DIFFERENTIAL STAT 05/30/2024 5:52 AM EST MAGNESIUM STAT 05/30/2024 5:52 AM EST ETHANOL STAT Add-on 05/30/2024 5:52 AM EST ACETAMINOPHEN LEVEL STAT Add-on 05/30/2024 5 :52 AM EST SALICYLATE LEVEL STAT Add-on 05/30/2024 5:52 AM EST BASIC METABOLIC PANEL STAT 05/30/2024 5:52 AM EST documented in this encounter Results * Methadone, urine (05/30/2024 5:58 AM EST) Methadone Screen, Urine Negative Negative LAB CHEMISTRY METHOD 05/30/2024 6:31 AM EST [facility] Comment: Assay cutoff 300 ng/mL Semi-quantitative assay for screening purposes only. Unconfirmed screening result should not be used for non-medical purposes. *ALTERNATE METHOD CONFIRMATION DONE UPON REQUEST ONLY* Urine Urine specimen obtained by clean catch procedure / Unknown Non-blood Collection / Unknown 05/30/2024 5:58 AM EST 05/30/2024 6:07 AM EST Max Daniels MD LAB URINE ORDERABLES [facility] [address] [place] [address], [place] [phone] * Phencyclidine, urine (05/30/2024 5:58 AM EST) PCP Scrn, Ur Negative Negative LAB CHEMISTRY METHOD 05/30/2024 6:31 AM EST [facility] Comment: Assay cutoff 25 ng/mL Semi-quantitative assay for screening purposes only. Unconfirmed screening result should not be used for non-medical purposes. *ALTERNATE METHOD CONFIRMATION DONE UPON REQUEST ONLY* Urine Urine specimen obtained by clean catch procedure / Unknown Non-blood Collection / Unknown 05/30/2024 5:58 AM EST 05/30/2024 6:07 AM EST Max Daniels MD LAB URINE ORDERABLES Performing Organization Address [facility]/ZIP Co de Phone Number [facility] [address] [place] [address], * Buprenorphine screen, urine (05/30/2024 5:58 AM EST) Buprenorphine Screen Urine Negative Negative LAB CHEMISTRY METHOD 05/30/2024 6:31 AM EST [facility] Urine Urine specimen obtained by clean catch procedure / Unknown Non-blood Collection / Unknown 05/30/2024 5:58 AM EST 05/30/2024 6:07 AM EST Narrative [facility] - 05/30/2024 6:31 AM EST Assay cutoff 5 ng/mL Semi-quantitative assay for screening purposes only. Unconfirmed screening result should not be used for non-medical purposes. *ALTERNATE METHOD CONFIRMATION DONE UPON REQUEST ONLY* Max Daniels MD LAB URINE ORDERABLES Performing Organization Address City/[facility]/ZIP Co de Phone Number [facility] [address] [place] [address], [place] [phone] * Drug abuse screen 8a panel, urine (05/30/2024 5:58 AM EST) [facility] Amphetamine Screen, Ur Negative Negative LAB CHEMISTRY METHOD 05/30/2024 6:31 AM [facility] Comment:Certain OTC medicati ons containing ephedrine, phenylephrine, pseudoephedrine and phenylpropanolamine can cause false positive results. Barbiturate Screen, Ur Negative Negative LAB CHEMISTRY METHOD 05/30/2024 6:31 AM [facility] Benzodiazepine Screen, Ur Negative Negative LAB CHEMISTRY METHOD 05/30/2024 6:31 AM [facility] Cocaine Screen, Ur Negative Negative LAB CHEMISTRY METHOD 05/30/2024 6:31 AM [facility] Opiate Screen, Ur Negative Negative LAB CHEMISTRY METHOD 05/30/2024 6:31 AM [facility] Cannabinoid (THC) Screen, Ur Negative Negative LAB CHEMISTRY METHOD 05/30/2024 6:31 AM [facility] Comment:Specimens from patie nts taking pantoprazole sodium (Protonix) have been shown to produce false positive results. Oxycodone Screen, Ur Negative Negative LAB CHEMISTRY METHOD 05/30/2024 6:31 AM [facility] Fentanyl, Ur Negative Negative LAB CHEMISTRY METHOD 05/30/2024 6:31 AM [facility] Urine Urine specimen obtained by clean catch procedure / Unknown Non-blood Collection / Unknown 05/30/2024 5:58 AM EST 05/30/2024 6:07 AM EST [facility] - 05/30/2024 6:31 AM EST Assay cutoffs: Amphetamines ? 1000 ng/mL Barbiturates ?200 ng/mL Benzodiazepines ?? 200 ng/mL Cocaine ? 300 ng/mL Fentanyl ?1 ng/mL Opiates ? 300 ng/mL Oxycodone ? 100 ng/mL THC ?50 ng/mL Semi-quantitative assay for screening purposes only. Unconfirmed screening result should not be used for non-medical purposes. *ALTERNATE METHOD CONFIRMATION DONE UPON REQUEST ONLY* Max Daniels MD LAB URINE ORDERABLES Performing Organization Address [facility] Co de Phone Number [facility] [address] [place] [address], * (ABNORMAL) Salicylate level (05/30/2024 5:52 AM EST) Salicylate Level <1.7(L) 2.0 - 29.0 mg/dL LAB CHEMISTRY METHOD 05/30/2024 6:50 AM EST [facility] Blood Venous blood specimen / Unknown Venipuncture / Unknown 05/30/2024 5:52 AM EST 05/30/2024 6:07 AM EST Max Daniels MD LAB BLOOD ORDERABLES Performing Organization Address [facility] Co de Phone Number [facility] [address] [place] [address], * (ABNORMAL) Ethanol (05/30/2024 5:52 AM EST) Ethanol Level 298(H) 0 - 10 mg/dL LAB CHEMISTRY METHOD 05/30/2024 6:50 AM EST [facility] Blood Venous blood specimen / Unknown Venipuncture / Unknown 05/30/2024 5:52 AM EST 05/30/2024 6:07 AM EST Max Daniels MD LAB BLOOD ORDERABLES Performing Organization Address [facility] Co de Phone Number [facility] [address] [place] [address], [place] [phone] * (ABNORMAL) Acetaminophen level (05/30/2024 5:52 AM EST) Acetaminophen Level <2.0(L) 10.0 - 30.0 mcg/mL LAB CHEMISTRY METHOD 05/30/2024 6:51 AM [facility] Blood Venous blood specimen / Unknown Venipuncture / Unknown 05/30/2024 5:52 AM EST 05/30/2024 6:07 AM EST Scot Kristian Daniels MD LAB BLOOD ORDERABLES [facility] [address] [place] [address], * (ABNORMAL) CBC auto differential (05/30/2024 5:52 AM EST) WBC 13.1(H) 4.8 - 10.8 K/mcL LAB HEMETOLOGY METHOD 05/30/2024 6:13 AM [facility] RBC 4.50 3.80 - 4.80 M/mcL LAB HEMETOLOGY METHOD 05/30/2024 6:13 AM [facility] Hemoglobin 11.6 11.5 - 16.0 g/dL LAB HEMETOLOGY METHOD 05/30/2024 6:13 AM [facility] Hematocrit 37.9 35.0 - 47.0 % LAB HEMETOLOGY METHOD 05/30/2024 6:13 AM [facility] MCV 85.2 79.0 - 98.0 FL LAB HEMETOLOGY METHOD 05/30/2024 6:13 AM [facility] MCH 26.1(L) 27.0 - 32.0 pcg LAB HEMETOLOGY METHOD 05/30/2024 6:13 AM [facility] MCHC 30.6(L) 32.0 - 37.0 g/dL LAB HEMETOLOGY METHOD 05/30/2024 6:13 AM [facility] RDW 16.3(H) 11.0 - 15.0 % LAB HEMETOLOGY METHOD 05/30/2024 6:13 AM [facility] Platelets 435(H) 130 - 400 K/mcL LAB HEMETOLOGY METHOD 05/30/2024 6:13 AM [facility] MPV 9.1 7.0 - 11.0 FL LAB HEMETOLOGY METHOD 05/30/2024 6:13 AM [facility] NRBC 0.0 <1.0 % LAB HEMETOLOGY METHOD 05/30/2024 6:13 AM [facility] NRBC Absolute 0.00 <0.10 K/mcL LAB HEMETOLOGY METHOD 05/30/2024 6:13 AM [facility] Neutrophils Relative 51.2 % LAB HEMETOLOGY METHOD 05/30/2024 6:13 AM [facility] Lymphocytes Relative 34.7 % LAB HEMETOLOGY METHOD 05/30/2024 6:13 AM [facility] Monocytes Relative 7.3 % LAB HEMETOLOGY METHOD 05/30/2024 6:13 AM [facility] Eosinophils Relative 5.4 % LAB HEMETOLOGY METHOD 05/30/2024 6:13 AM [facility] Basophils Relative 0.6 % LAB HEMETOLOGY METHOD 05/30/2024 6:13 AM [facility] Immature Granulocytes Relative 0.8 % LAB HEMETOLOGY METHOD 05/30/2024 6:13 AM [facility] Neutrophils Absolute 6.71 1.50 - 7.00 K/mcL LAB HEMETOLOGY METHOD 05/30/2024 6:13 AM [facility] Lymphocytes Absolute 4.53 1.00 - 5.00 K/mcL LAB HEMETOLOGY METHOD 05/30/2024 6:13 AM [facility] Monocytes Absolute 0.95 0.20 - 1.00 K/mcL LAB HEMETOLOGY METHOD 05/30/2024 6:13 AM EST [facility] Eosinophils Absolute 0.70(H) 0.00 - 0.50 K/[facility] LAB HEMETOLOGY METHOD 05/30/2024 6:13 AM EST [facility] Basophils Absolute 0.08 0.00 - 0.20 K/[facility] HEMETOLOGY METHOD 05/30/2024 6:13 AM EST [facility] Immature Granulocytes Absolute 0.10(H) 0.00 - 0.03 K/[facility] HEMETOLOGY METHOD 05/30/2024 6:13 AM EST [facility] Blood Venous blood specimen / Unknown Venipuncture / Unknown 05/30/2024 5:52 AM EST 05/30/2024 6:06 AM EST Max Daniels MD LAB BLOOD ORDERABLES Performing Organization Address City/[facility]/ZIP Co de Phone Number [facility] [address] [place] [address], * Magnesium (05/30/2024 5:52 AM EST) Magnesium 2.2 1.9 - 2.6 mg/dL LAB CHEMISTRY METHOD 05/30/2024 6:26 AM EST [facility] Blood Venous blood specimen / Unknown Venipuncture / Unknown 05/30/2024 5:52 AM EST 05/30/2024 6:07 AM EST Max Daniels MD LAB BLOOD ORDERABLES [facility] [address] [place] [address], * (ABNORMAL) Basic metabolic panel (05/30/2024 5:52 AM EST) Sodium 134 133 - 145 mmol/L LAB CHEMISTRY METHOD 05/30/2024 6:26 AM EST [facility] Potassium 4.2 3.5 - 5.5 mmol/L LAB CHEMISTRY METHOD 05/30/2024 6:26 AM [facility] Chloride 103 96 - 110 mmol/L LAB CHEMISTRY METHOD 05/30/2024 6:26 AM [facility] CO2 20(L) 21 - 32 mmol/L LAB CHEMISTRY METHOD 05/30/2024 6:26 AM [facility] Anion Gap 11 3 - 11 LAB CHEMISTRY METHOD 05/30/2024 6:26 AM [facility] Glucose 113(H) 70 - 100 mg/dL LAB CHEMISTRY METHOD 05/30/2024 6:26 AM [facility] BUN 10 5 - 25 mg/dL LAB CHEMISTRY METHOD 05/30/2024 6:26 AM [facility] Creatinine 1.07 0.50 - 1.10 mg/dL LAB CHEMISTRY METHOD 05/30/2024 6:26 AM [facility] eGFR 68 >=60 mL/min/1. 73m2 LAB CHEMISTRY METHOD 05/30/2024 6:26 AM [facility] Comment:Calculation based on the??Chronic Kidney Disease Epidemiology Collaboration (CKD-EPI) equation refit??without adjustment for race. BUN/Creatinine Ratio 9.3 LAB CHEMISTRY METHOD 05/30/2024 6:26 AM [facility] Calcium 8.8 8.5 - 10.5 mg/dL LAB CHEMISTRY METHOD 05/30/2024 6:26 AM [facility] Blood Venous blood specimen / Unknown Venipuncture / Unknown 05/30/2024 5:52 AM EST 05/30/2024 6:07 AM EST Max Daniels MD LAB BLOOD ORDERABLES [facility] [address] [place] [address], documented in this encounter Visit Diagnoses Diagnosis Muscle spasm- Primary Spasm of muscle documented in this encounter Care Teams Lambskin Trimmer Relationship Specialty Start Date End Date Patsy Narayanan MD PCP - General Internal Medicine 11/17/17 documented as of this encounter
--- OUTSIDE RECORDS SUMMARY | 2024-06-29 14:42 | XMS_ITS | Clinical Summary ---
Author Organization [facility] Address [address] [place] [address] Phone Care Team Providers Care Transportation Escort Name Role Phone Patsy Narayanan MD Primary Care Provider Unavail able Allergies Active Allergy Reactions Criticality Noted Date Comments Morphine Swelling High 11/18/2017 Shellfish Derived Hives 05/30/2024 Encounters Date Type Department Care Team Description 05/30/2024 5:56 AM EST - 05/30/2024 6:54 AM EST Emergency [facility] [address] [place] [address] Max Daniels MD Muscle spasm (Primary Dx) Discharge Disposition: Home or Self Care from Last 3 Months Surgical History Surgery Date Site/Laterality Comments THYROIDECTOMY CHOLECYSTECTOMY SECTION Medical History Medical History Date Comments Multiple sclerosis (CMS/HCC) Thyroid cancer ([facility]/HCC) Lymphoma ([facility]/HCC) Social History Tobacco Use Types Packs/Day Years Used Date Smoking Tobacco: Former Cigarettes Smokeless Tobacco: Never Tobacco Cessation:Counseling Given: Not Answered Alcohol Use Standard Drinks/Week Comments Never 0 (1 standard drink = 0.6 oz pur e alcohol) Sex and Gender Information Value Date Recorded Sex Assigned at Not on file Gender Identity Not on file Sexual Orientation Not on file Obstetrics History Last Filed Vital Signs Vital Sign Reading [...] Mass Index 56.7 05/30/2024 5:07 AM EST Plan of Treatment Health Maintenance Due Date Last Done Comments DTaP,Tdap,and Td Vaccines (1 - Tdap) 2004 Hepatitis B Vaccines (1 of 3 - 19+ 3-dose series) 2004 Cervical Cancer Screening: P ap Smear 2006 COVID-19 Vaccine (2023-2 5 season) 2024 Influenza Vaccine (#1) 2024 Depression Screening 05/30/2024 HIV Screening 05/30/2024 Hepatitis C Screening 05/30/2024 Social Influencers of Health Screening 05/30/2024 HIB Vaccines Aged Out No longer eligi ble based on patient's age to complete this topic HPV Vaccines Aged Out No longer eligi ble based on patient's age to complete this topic Hepatitis A Vaccines Aged Out No long er eligible based on patient's age to complete this topic IPV Vaccines Aged Out No longer eligi ble based on patient's age to complete this topic MMR Vaccines Aged Out No longer eligi ble based on patient's age to complete this topic Meningococcal ACWY Vaccine Aged Out N o longer eligible based on patient's age to complete this topic Pneumococcal Vaccine: Pediat rics (0 to 5 Years) and At-Risk Patients (6 to 64 Years) Aged Out No longer eligible b ased on patient's age to complete this topic RSV Immunization Patients Un lorenzo 20 months Aged Out No longer eligible b ased on patient's age to complete this topic Varicella Vaccines Aged Out No longer eligible based on patient's age to complete this topic Procedures Procedure Name Priority Date/Time Associated Diagnosis Comments METHADONE SCREEN, URINE STAT 05/30/2024 5:58 AM EST PHENCYCLIDINE, URINE STAT 05/30/2024 5:58 AM EST BUPRENORPHINE SCREEN, URINE STAT 05/30/2024 5:58 AM EST DRUG ABUSE SCREEN 8A PANEL, URINE STAT 05/30/2024 5:58 AM EST SALICYLATE LEVEL STAT Add-on 05/30/2024 5:52 AM EST ETHANOL STAT Add-on 05/30/2024 5:52 AM EST ACETAMINOPHEN LEVEL STAT Add-on 05/30/2024 5 :52 AM EST CBC WITH AUTO DIFFERENTIAL STAT 05/30/2024 5:52 AM EST MAGNESIUM STAT 05/30/2024 5:52 AM EST BASIC METABOLIC PANEL STAT 05/30/2024 5:52 AM EST CBC AND DIFFERENTIAL STAT 05/30/2024 5:52 AM EST from Last 3 Months Results * Drug abuse screen 8a panel, urine (05/30/2024 5:58 AM EST) Amphetamine Screen, Ur Negative Negative LAB CHEMISTRY METHOD 05/30/2024 6:31 AM [facility] Comment:Certain OTC medicati ons containing ephedrine, phenylephrine, pseudoephedrine and phenylpropanolamine can cause false positive results. Barbiturate Screen, Ur Negative Negative LAB CHEMISTRY METHOD 05/30/2024 6:31 AM [facility] Benzodiazepine Screen, Ur Negative Negative LAB CHEMISTRY METHOD 05/30/2024 6:31 AM [facility] Cocaine Screen, Ur Negative Negative LAB CHEMISTRY METHOD 05/30/2024 6:31 AM [facility] Opiate Screen, Ur Negative Negative LAB CHEMISTRY METHOD 05/30/2024 6:31 AM [facility] Cannabinoid (THC) Screen, Ur Negative Negative LAB CHEMISTRY METHOD 05/30/2024 6:31 AM [facility] Comment:Specimens from patie nts taking pantoprazole sodium (Protonix) have been shown to produce false positive results. Oxycodone Screen, Ur Negative Negative LAB CHEMISTRY METHOD 05/30/2024 6:31 AM [facility] Fentanyl, Ur Negative Negative LAB CHEMISTRY METHOD 05/30/2024 6:[address] [facility] Urine Urine specimen obtained by clean catch procedure / Unknown Non-blood Collection / Unknown 05/30/2024 5:58 AM EST 05/30/2024 6:[address] [facility] - 05/30/2024 6:31 AM EST [...] MD LAB URINE ORDERABLES Performing Organization Address City/[facility] Co de Phone Number [facility] [address] [place] [address], * Buprenorphine screen, urine (05/30/2024 5:58 AM EST) [facility] Buprenorphine Screen Urine Negative Negative LAB CHEMISTRY METHOD 05/30/2024 6:[address] [facility] Urine Urine specimen obtained by clean catch procedure / Unknown Non-blood Collection / Unknown 05/30/2024 5:58 AM EST 05/30/2024 6:[address] [facility] - 05/30/2024 6:31 AM EST Assay cutoff 5 ng/mL Semi-quantitative assay for screening purposes only. Unconfirmed screening result should not be used for non-medical purposes. *ALTERNATE METHOD CONFIRMATION DONE UPON REQUEST ONLY* Max Daniels MD LAB URINE ORDERABLES Performing Organization Address City/State/[facility] Co de Phone Number [facility] [address] [place] [address], [place] [phone] * Methadone, urine (05/30/2024 5:58 AM EST) Methadone Screen, Urine Negative Negative LAB CHEMISTRY METHOD 05/30/2024 6:[address] [facility] Comment: Assay cutoff 300 ng/mL Semi-quantitative assay for screening purposes only. Unconfirmed screening result should not be used for non-medical purposes. *ALTERNATE METHOD CONFIRMATION DONE UPON REQUEST ONLY* Urine Urine specimen obtained by clean catch procedure / Unknown Non-blood Collection / Unknown 05/30/2024 5:58 AM EST 05/30/2024 6:07 AM EST Max Daniels MD LAB URINE ORDERABLES Performing Organization Address [facility] de Phone Number [facility] [address] [place] [address], * Phencyclidine, urine (05/30/2024 5:58 AM EST) Pathologist [facility] PCP Scrn, Ur Negative Negative LAB CHEMISTRY METHOD 05/30/2024 6:[address] [facility] Comment: Assay cutoff 25 ng/mL Semi-quantitative assay for screening purposes only. Unconfirmed screening result should not be used for non-medical purposes. *ALTERNATE METHOD CONFIRMATION DONE UPON REQUEST ONLY* Urine Urine specimen obtained by clean catch procedure / Unknown Non-blood Collection / Unknown 05/30/2024 5:58 AM EST 05/30/2024 6:07 AM EST Max Daniels MD LAB URINE ORDERABLES Performing Organization Address [facility] Co de Phone Number [facility] [address] [place] [address], [place] [phone] * (ABNORMAL) CBC auto differential (05/30/2024 5:52 AM EST) WBC 13.1(H) 4.8 - 10.8 K/mcL LAB HEMETOLOGY METHOD 05/30/2024 6:13 AM [facility] RBC 4.50 3.80 - 4.80 M/mcL LAB HEMETOLOGY METHOD 05/30/2024 6:13 AM [facility] Hemoglobin 11.6 11.5 - 16.0 g/dL LAB HEMETOLOGY METHOD 05/30/2024 6:13 AM [facility] Hematocrit 37.9 35.0 - 47.0 % LAB HEMETOLOGY METHOD 05/30/2024 6:13 AM [facility] MCV 85.2 79.0 - 98.0 FL LAB HEMETOLOGY METHOD 05/30/2024 6:13 AM [facility] MCH 26.1(L) 27.0 - 32.0 pcg LAB HEMETOLOGY METHOD 05/30/2024 6:13 AM [facility] MCHC 30.6(L) 32.0 - 37.0 g/dL LAB HEMETOLOGY METHOD 05/30/2024 6:13 AM [facility] RDW 16.3(H) 11.0 - 15.0 % LAB HEMETOLOGY METHOD 05/30/2024 6:13 AM [facility] Platelets 435(H) 130 - 400 K/mcL LAB HEMETOLOGY METHOD 05/30/2024 6:13 AM [facility] MPV 9.1 7.0 - 11.0 FL LAB HEMETOLOGY METHOD 05/30/2024 6:13 AM [facility] NRBC 0.0 <1.0 % LAB HEMETOLOGY METHOD 05/30/2024 6:13 AM [facility] NRBC Absolute 0.00 <0.10 K/mcL LAB HEMETOLOGY METHOD 05/30/2024 6:13 AM [facility] Neutrophils Relative 51.2 % LAB HEMETOLOGY METHOD 05/30/2024 6:13 AM [facility] Lymphocytes Relative 34.7 % LAB HEMETOLOGY METHOD 05/30/2024 6:13 AM [facility] Monocytes Relative 7.3 % LAB HEMETOLOGY METHOD 05/30/2024 6:13 AM [facility] Eosinophils Relative 5.4 % LAB HEMETOLOGY METHOD 05/30/2024 6:13 AM [facility] Basophils Relative 0.6 % LAB HEMETOLOGY METHOD 05/30/2024 6:13 AM [facility] Immature Granulocytes Relative 0.8 % LAB HEMETOLOGY METHOD 05/30/2024 6:13 AM [facility] Neutrophils Absolute 6.71 1.50 - 7.00 K/mcL LAB HEMETOLOGY METHOD 05/30/2024 6:13 AM [facility] Lymphocytes Absolute 4.53 1.00 - 5.00 K/mcL LAB HEMETOLOGY METHOD 05/30/2024 6:13 AM [facility] Monocytes Absolute 0.95 0.20 - 1.00 K/mcL LAB HEMETOLOGY METHOD 05/30/2024 6:13 AM [facility] Eosinophils Absolute 0.70(H) 0.00 - 0.50 K/mcL LAB HEMETOLOGY METHOD 05/30/2024 6:13 AM [facility] Basophils Absolute 0.08 0.00 - 0.20 K/mcL LAB HEMETOLOGY METHOD 05/30/2024 6:13 AM [facility] Immature Granulocytes Absolute 0.10(H) 0.00 - 0.03 K/mcL LAB HEMETOLOGY METHOD 05/30/2024 6:13 AM [facility] Blood Venous blood specimen / Unknown Venipuncture / Unknown 05/30/2024 5:52 AM EST 05/30/2024 6:06 AM EST Max Daniels MD LAB BLOOD ORDERABLES Performing Organization Address [facility] Co de Phone Number [facility] [address] [place] [address], [place] [phone] * Magnesium (05/30/2024 5:52 AM EST) Magnesium 2.2 1.9 - 2.6 mg/dL LAB CHEMISTRY METHOD 05/30/2024 6:[address] [facility] Blood Venous blood specimen / Unknown Venipuncture / Unknown 05/30/2024 5:52 AM EST 05/30/2024 6:07 AM EST Max Daniels MD LAB BLOOD ORDERABLES Performing Organization Address [facility] de Phone Number [facility] [address] [place] [address], * (ABNORMAL) Ethanol (05/30/2024 5:52 AM EST) Ethanol Level 298(H) 0 - 10 mg/dL LAB CHEMISTRY METHOD 05/30/2024 6:[address] [facility] Blood Venous blood specimen / Unknown Venipuncture / Unknown 05/30/2024 5:52 AM EST 05/30/2024 6:07 AM EST Max Daniels MD LAB BLOOD ORDERABLES Performing Organization Address City/[facility] de Phone Number [facility] [address] [place] [address], [place] [phone] * (ABNORMAL) Acetaminophen level (05/30/2024 5:52 AM EST) Acetaminophen Level <2.0(L) 10.0 - 30.0 mcg/mL LAB CHEMISTRY METHOD 05/30/2024 6:[address] [facility] Blood Venous blood specimen / Unknown Venipuncture / Unknown 05/30/2024 5:52 AM EST 05/30/2024 6:07 AM EST Max Daniels MD LAB BLOOD ORDERABLES Performing Organization Address [facility]/ZIP Co de Phone Number [facility] [address] [place] [address], * (ABNORMAL) Salicylate level (05/30/2024 5:52 AM EST) Salicylate Level <1.7(L) 2.0 - 29.0 mg/dL LAB CHEMISTRY METHOD 05/30/2024 6:[address] [facility] Blood Venous blood specimen / Unknown Venipuncture / Unknown 05/30/2024 5:52 AM EST 05/30/2024 6:07 AM EST Max Daniels MD LAB BLOOD ORDERABLES Performing Organization Address [facility]/ZIP Co de Phone Number [facility] [address] [place] [address], [place] [phone] * (ABNORMAL) Basic metabolic panel (05/30/2024 5:52 AM EST) Sodium 134 133 - 145 mmol/L LAB CHEMISTRY METHOD 05/30/2024 6:26 AM [facility] Potassium 4.2 3.5 - 5.5 mmol/L LAB CHEMISTRY METHOD 05/30/2024 6:26 AM [facility] Chloride 103 96 - 110 mmol/L LAB CHEMISTRY METHOD 05/30/2024 6:26 AM [facility] CO2 20(L) 21 - 32 mmol/L LAB CHEMISTRY METHOD 05/30/2024 6:26 AM [facility] Anion Gap 11 3 - 11 LAB CHEMISTRY METHOD 05/30/2024 6:26 AM [facility] Glucose 113(H) 70 - 100 mg/dL LAB CHEMISTRY METHOD 05/30/2024 6:[address] [facility] BUN 10 5 - 25 mg/dL LAB CHEMISTRY METHOD 05/30/2024 6:26 AM [facility] Creatinine 1.07 0.50 - 1.10 mg/dL LAB CHEMISTRY METHOD 05/30/2024 6:26 AM [facility] eGFR 68 >=60 mL/min/1. 73m2 LAB CHEMISTRY METHOD 05/30/2024 6:[address] [facility] Comment:Calculation based on the??Chronic Kidney Disease Epidemiology Collaboration (CKD-EPI) equation refit??without adjustment for race. BUN/Creatinine Ratio 9.3 LAB CHEMISTRY METHOD 05/30/2024 6:26 AM [facility] Calcium 8.8 8.5 - 10.5 mg/dL LAB CHEMISTRY METHOD 05/30/2024 6:26 AM [facility] Blood Venous blood specimen / Unknown Venipuncture / Unknown 05/30/2024 5:52 AM EST 05/30/2024 6:07 AM EST Max Daniels MD LAB BLOOD ORDERABLES [facility] [address] [place] [address], from Last 3 Months Care Teams Transportation Escort Relationship Specialty Start Date End Date Patsy Narayanan MD PCP - General Internal Medicine 11/17/17
== END 2024-06-29 14:17 | disposition home or self-care (01) ==
PROVIDERS: PCP Internal Medicine; Visit Provider Internal Medicine
DX: J45.50 Severe persistent asthma, uncomplicated (principal); C73 Malignant neoplasm of thyroid gland; E66.01 Morbid (severe) obesity due to excess calories; Z68.44 Body mass index [BMI] 60.0-69.9, adult; F31.9 Bipolar disorder, unspecified; Z91.09 Other allergy status, other than to drugs and biological substances; G47.33 Obstructive sleep apnea (adult) (pediatric); M79.7 Fibromyalgia; G43.909 Migraine, unspecified, not intractable, without status migrainosus; R79.89 Other specified abnormal findings of blood chemistry; K21.9 Gastro-esophageal reflux disease without esophagitis; E89.0 Postprocedural hypothyroidism

== ENCOUNTER → 2024-06-29 12:54 | Outpatient (BNVA) | payer OTHER, SELFPAY | PROVIDERS: PCP Internal Medicine; Visit Provider Internal Medicine | DX: J45.50 Severe persistent asthma, uncomplicated (principal); G47.33 Obstructive sleep apnea (adult) (pediatric); M79.7 Fibromyalgia; G43.909 Migraine, unspecified, not intractable, without status migrainosus; R79.89 Other specified abnormal findings of blood chemistry; K21.9 Gastro-esophageal reflux disease without esophagitis; E89.0 Postprocedural hypothyroidism; C73 Malignant neoplasm of thyroid gland; E55.9 Vitamin D deficiency, unspecified; Z91.09 Other allergy status, other than to drugs and biological substances; D64.9 Anemia, unspecified; R25.2 Cramp and spasm; D17.0 Benign lipomatous neoplasm of skin and subcutaneous tissue of head, face and neck; F41.9 Anxiety disorder, unspecified; F31.9 Bipolar disorder, unspecified; E66.01 Morbid (severe) obesity due to excess calories; Z68.44 Body mass index [BMI] 60.0-69.9, adult; Z71.3 Dietary counseling and surveillance | CPT/HCPCS: 96127; 99212 ==

== ENCOUNTER 2024-07-11 09:41 | Outpatient (REF) | payer OTHER, SELFPAY ==
--- OUTSIDE RECORDS SUMMARY | 2024-07-11 11:33 | XMS_ITS | Clinical Summary ---
Author Organization 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 Name Role Phone Patsy Narayanan MD Primary Care Provider Unavail able Allergies Active Allergy Reactions Criticality Noted Date Comments Morphine Swelling High 11/18/2017 Shellfish Derived Hives 05/30/2024 Encounters Date Type Department Care Team Description 05/30/2024 5:56 AM EST - 05/30/2024 6:54 AM EST Emergency [facility] [address] [place] [id number] Max Daniels MD Muscle spasm (Primary Dx) Discharge Disposition: Home or Self Care from Last 3 Months Surgical History Surgery Date Site/Laterality Comments THYROIDECTOMY CHOLECYSTECTOMY SECTION Medical History Medical History Date Comments Multiple sclerosis (CMS/HCC) Thyroid cancer ([facility]/HCC) Lymphoma ([facility]/HCC) Social History Tobacco Use Types Packs/Day Years [...] AM EST Office Visit Bariatric Surgery - [place] [address] [place] [address] Christina Yu MD [address] [facility] [address] [place] [address] Health Maintenance Due Date Last Done Comments [...] CHEMISTRY METHOD 05/30/2024 6:31 AM EST [facility] Comment:Certain OTC medicati ons containing ephedrine, phenylephrine, pseudoephedrine and phenylpropanolamine can cause false positive results. Barbiturate Screen, Ur Negative Negative LAB CHEMISTRY METHOD 05/30/2024 6:31 AM [facility] Benzodiazepine Screen, Ur Negative Negative LAB CHEMISTRY METHOD 05/30/2024 6:31 AM [facility] Cocaine Screen, Ur Negative Negative LAB CHEMISTRY METHOD 05/30/2024 6:31 AM [facility] Opiate Screen, Ur Negative Negative LAB CHEMISTRY METHOD 05/30/2024 6:31 AM [facility] Cannabinoid (THC) Screen, Ur Negative Negative LAB CHEMISTRY METHOD 05/30/2024 6:31 AM [facility] Comment:Specimens from patie nts taking pantoprazole sodium (Protonix) have been shown to produce false positive results. Oxycodone Screen, Ur Negative Negative LAB CHEMISTRY METHOD 05/30/2024 6:31 AM [facility] Fentanyl, Ur Negative Negative LAB CHEMISTRY METHOD 05/30/2024 6:31 AM [facility] Urine Urine specimen obtained by [...] ONLY* Max Daniels MD LAB URINE ORDERABLES [facility]) [facility] [address] [place] [address], * Buprenorphine screen, urine (05/30/2024 5:58 AM EST) Buprenorphine Screen Urine Negative Negative LAB CHEMISTRY METHOD 05/30/2024 6:31 AM EST [facility] Urine Urine specimen obtained by clean catch procedure / Unknown Non-blood Collection / Unknown 05/30/2024 5:58 AM EST 05/30/2024 6:07 AM EST Narrative [facility] - 05/30/2024 6:31 AM EST Assay cutoff 5 ng/mL Semi-quantitative assay for screening purposes only. Unconfirmed screening result should not be used for non-medical purposes. *ALTERNATE METHOD CONFIRMATION DONE UPON REQUEST ONLY* Max Daniels MD LAB URINE ORDERABLES Performing Organization Address [facility]/ZIP Co de Phone Number [facility] [address] [place] [address], * Methadone, urine (05/30/2024 5:58 AM EST) Pathologist [facility] [place] Methadone Screen, Urine Negative Negative LAB CHEMISTRY METHOD 05/30/2024 6:31 AM EST [facility] Comment: Assay cutoff 300 ng/mL Semi-quantitative assay for screening purposes only. Unconfirmed screening result should not be used for non-medical purposes. *ALTERNATE METHOD CONFIRMATION DONE UPON REQUEST ONLY* Urine Urine specimen obtained by clean catch procedure / Unknown Non-blood Collection / Unknown 05/30/2024 5:58 AM EST 05/30/2024 6:07 AM EST Max Daniels MD LAB URINE ORDERABLES Performing Organization Address City/[facility]/ZIP Co de Phone Number [facility] [address] [place] [address], [place] [phone] * Phencyclidine, urine (05/30/2024 5:58 AM EST) PCP Scrn, Ur Negative Negative LAB CHEMISTRY METHOD 05/30/2024 6:31 AM [facility] Comment: Assay cutoff 25 ng/mL Semi-quantitative assay for screening purposes only. Unconfirmed screening result should not be used for non-medical purposes. *ALTERNATE METHOD CONFIRMATION DONE UPON REQUEST ONLY* Urine Urine specimen obtained by clean catch procedure / Unknown Non-blood Collection / Unknown 05/30/2024 5:58 AM EST 05/30/2024 6:07 AM EST Max Daniels MD LAB URINE ORDERABLES [facility] [address] [place] [address], * (ABNORMAL) CBC auto differential (05/30/2024 5:52 AM EST) WBC 13.1(H) 4.8 - 10.8 K/mcL LAB HEMETOLOGY METHOD 05/30/2024 6:13 AM [facility] RBC 4.50 3.80 - 4.80 M/mcL LAB HEMETOLOGY METHOD 05/30/2024 6:13 AM [facility] Hemoglobin 11.6 11.5 - 16.0 g/dL LAB HEMETOLOGY METHOD 05/30/2024 6:13 AM [facility] Hematocrit 37.9 35.0 - 47.0 % LAB HEMETOLOGY METHOD 05/30/2024 6:13 AM [facility] MCV 85.2 79.0 - 98.0 FL LAB HEMETOLOGY METHOD 05/30/2024 6:13 AM [facility] MCH 26.1(L) 27.0 - 32.0 pcg LAB HEMETOLOGY METHOD 05/30/2024 6:13 AM [facility] MCHC 30.6(L) 32.0 - 37.0 g/dL LAB HEMETOLOGY METHOD 05/30/2024 6:13 AM [facility] RDW 16.3(H) 11.0 - 15.0 % LAB HEMETOLOGY METHOD 05/30/2024 6:13 AM [facility] Platelets 435(H) 130 - 400 K/mcL LAB HEMETOLOGY METHOD 05/30/2024 6:13 AM [facility] MPV 9.1 7.0 - 11.0 FL LAB HEMETOLOGY METHOD 05/30/2024 6:13 AM [facility] NRBC 0.0 <1.0 % LAB HEMETOLOGY METHOD 05/30/2024 6:13 AM [facility] NRBC Absolute 0.00 <0.10 K/mcL LAB HEMETOLOGY METHOD 05/30/2024 6:13 AM [facility] Neutrophils Relative 51.2 % LAB HEMETOLOGY METHOD 05/30/2024 6:13 AM [facility] Lymphocytes Relative 34.7 % LAB HEMETOLOGY METHOD 05/30/2024 6:13 AM [facility] Monocytes Relative 7.3 % LAB HEMETOLOGY METHOD 05/30/2024 6:13 AM [facility] Eosinophils Relative 5.4 % LAB HEMETOLOGY METHOD 05/30/2024 6:13 AM [facility] Basophils Relative 0.6 % LAB HEMETOLOGY METHOD 05/30/2024 6:13 AM [facility] Immature Granulocytes Relative 0.8 % LAB HEMETOLOGY METHOD 05/30/2024 6:13 AM [facility] Neutrophils Absolute 6.71 1.50 - 7.00 K/mcL LAB HEMETOLOGY METHOD 05/30/2024 6:13 AM [facility] Lymphocytes Absolute 4.53 1.00 - 5.00 K/mcL LAB HEMETOLOGY METHOD 05/30/2024 6:13 AM [facility] Monocytes Absolute 0.95 0.20 - 1.00 K/mcL LAB HEMETOLOGY METHOD 05/30/2024 6:13 AM EST [facility] Eosinophils Absolute 0.70(H) 0.00 - 0.50 K/[facility] HEMETOLOGY METHOD 05/30/2024 6:13 AM EST [facility] Basophils Absolute 0.08 0.00 - 0.20 K/[facility] HEMETOLOGY METHOD 05/30/2024 6:13 AM EST [facility] Immature Granulocytes Absolute 0.10(H) 0.00 - 0.03 K/[facility] HEMETOLOGY METHOD 05/30/2024 6:13 AM EST [facility] Blood Venous blood specimen / Unknown Venipuncture / Unknown 05/30/2024 5:52 AM EST 05/30/2024 6:06 AM EST Max Daniels MD LAB BLOOD ORDERABLES [facility] [address] [place] [address], * Magnesium (05/30/2024 5:52 AM EST) Magnesium 2.2 1.9 - 2.6 mg/dL LAB CHEMISTRY METHOD 05/30/2024 6:26 AM EST [facility] Blood Venous blood specimen / Unknown Venipuncture / Unknown 05/30/2024 5:52 AM EST 05/30/2024 6:07 AM EST Max Daniels MD LAB BLOOD ORDERABLES [facility] [address] [place] [address], [place] [phone] * (ABNORMAL) Ethanol (05/30/2024 5:52 AM EST) Ethanol Level 298(H) 0 - 10 mg/dL LAB CHEMISTRY METHOD 05/30/2024 6:50 AM EST [facility] Blood Venous blood specimen / Unknown Venipuncture / Unknown 05/30/2024 5:52 AM EST 05/30/2024 6:07 AM EST Max Daniels MD LAB BLOOD ORDERABLES Performing Organization Address [facility]/ZIP Co de Phone Number [facility] [address] [place] [address], [place] [phone] * (ABNORMAL) Acetaminophen level (05/30/2024 5:52 AM EST) Acetaminophen Level <2.0(L) 10.0 - 30.0 mcg/mL LAB CHEMISTRY METHOD 05/30/2024 6:51 AM EST [facility] Blood Venous blood specimen / Unknown Venipuncture / Unknown 05/30/2024 5:52 AM EST 05/30/2024 6:07 AM EST Max Daniels MD LAB BLOOD ORDERABLES Performing Organization Address [facility] de Phone Number [facility] [address] [place] [address], [place] [phone] * (ABNORMAL) Salicylate level (05/30/2024 5:52 AM EST) Salicylate Level <1.7(L) 2.0 - 29.0 mg/dL LAB CHEMISTRY METHOD 05/30/2024 6:50 AM EST [facility] Blood Venous blood specimen / Unknown Venipuncture / Unknown 05/30/2024 5:52 AM EST 05/30/2024 6:07 AM EST Max Daniels MD LAB BLOOD ORDERABLES Performing Organization Address City/[facility]/ZIP Co de Phone Number [facility] [address] [place] [address], [place] [phone] * (ABNORMAL) Basic metabolic panel (05/30/2024 5:52 AM EST) Sodium 134 133 - 145 mmol/L LAB CHEMISTRY METHOD 05/30/2024 6:26 AM [facility] Potassium 4.2 3.5 - 5.5 mmol/L LAB CHEMISTRY METHOD 05/30/2024 6:26 AM [facility] Chloride 103 96 - 110 mmol/L LAB CHEMISTRY METHOD 05/30/2024 6:26 AM [facility] CO2 20(L) 21 - 32 mmol/L LAB CHEMISTRY METHOD 05/30/2024 6:26 AM [facility] Anion Gap 11 3 - 11 LAB CHEMISTRY METHOD 05/30/2024 6:26 AM [facility] Glucose 113(H) 70 - 100 mg/dL LAB CHEMISTRY METHOD 05/30/2024 6:26 AM [facility] BUN 10 5 - 25 mg/dL LAB CHEMISTRY METHOD 05/30/2024 6:26 AM [facility] Creatinine 1.07 0.50 - 1.10 mg/dL LAB CHEMISTRY METHOD 05/30/2024 6:26 AM [facility] eGFR 68 >=60 mL/min/1. 73m2 LAB CHEMISTRY METHOD 05/30/2024 6:26 AM [facility] Comment:Calculation based on the??Chronic Kidney Disease Epidemiology Collaboration (CKD-EPI) equation refit??without adjustment for race. 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
[2024-07-11 18:27] LABS: MANUAL DIFF FLAG NO
[2024-07-11 18:30] LABS: Basophils Percent Auto 0.4 % (0-2); Eosinophils Absolute Auto 0.3 X10*3/uL (0.0-0.4); Eosinophils Percent Auto 3.3 % (0-4); Hematocrit 34.7 % (37.0-47.0); Hemoglobin 10.9 g/dl (12.0-16.0); Imm Gran Abs Auto 0.03 X10*3/uL (0.00-0.03); Imm Gran Pct Auto 0.3 % (0.0-0.4); Lymphocytes Absolute Auto 2.3 X10*3/uL (1.2-4.9); Lymphocytes Percent Auto 23.4 % (20-40); Mean Corpuscular HGB Conc 31.4 g/dl (31.0-35.0); Mean Corpuscular Hemoglobin 26.1 pg (27.0-33.0); Mean Platelet Volume 9.7 fL (9.4-12.3); Monocytes Absolute Auto 0.6 X10*3/uL (0.1-1.2); Monocytes Percent Auto 6.6 % (2-11); Neutrophils Absolute Auto 6.4 x10*3/uL (2.0-8.3); Platelet Count 360 X10*3/uL (160-400); Red Blood Count 4.18 X10*6/uL (4.20-5.50); Red Cell Distribution Width 16.7 % (11.0-16.0); White Blood Count 9.7 X10*3/uL (4.8-10.8)
[2024-07-11 18:57] LABS: Alanine Aminotransferase 102 U/L (0-31); Albumin Level 3.5 g/dL (3.5-5.0); Alkaline Phosphatase 66 U/L (39-117); Anion Gap 10 (12-20); Aspartate Amino Transferase 85 U/L (5-31); Bilirubin Total 0.4 mg/dL (0.0-1.0); Blood Urea Nitrogen 16 mg/dL (9-16); Calcium 8.2 mg/dL (8.4-10.2); Carbon Dioxide 22 mmol/L (22-29); Chloride 108 mmol/L (96-108); Estimated Glomerular Filt Rate > 60; Glucose Random 88 mg/dL (60-115); Potassium 3.9 mmol/L (3.3-5.1); Sodium 136 mmol/L (135-145); Total Protein 8.3 g/dL (6.5-8.0)
[2024-07-11 19:13] LABS: TSH reflex Free T4 0.51 uIU/mL (0.32-4.0)
[2024-07-11 19:18] LABS: Folate 8.6 ng/mL (> or = 4.0); Vitamin B12 413 pg/mL (200-900)
[2024-07-11 20:10] LABS: Erythrocyte Sedimentation Rate 45 MM/HR (0-20)
[2024-07-16 13:48] LABS: Vitamin D 25-OH, D2 <4 ng/mL; Vitamin D 25-OH, D3 32 ng/mL; Vitamin D 25-OH, Total 32 ng/mL (30-100)
[2024-07-17 13:38] LABS: Anti Nuclear Antibody Screen NEGATIVE (NEGATIVE)
== END 2024-07-11 09:42 | disposition home or self-care (01) ==
LOC: HO.HKASLDS 09:41
PROVIDERS: PCP Internal Medicine; Visit Provider Psychiatry & Neurology Neurology
DX: G43.719 Chronic migraine without aura, intractable, without status migrainosus (principal); G47.33 Obstructive sleep apnea (adult) (pediatric); F09 Unspecified mental disorder due to known physiological condition; G24.9 Dystonia, unspecified
CPT/HCPCS: 36415; 80053; 82306; 82607; 82746; 84443; 85025; 85652; 86038; 99212

== ENCOUNTER 2024-07-11 09:41 | Outpatient (AMB) | payer OTHER, SELFPAY ==
[2024-07-11 09:43] VITALS: BMI 62.2
--- NOTE | 2024-07-11 09:43 | MHC.OFFVIS ---
Vital Signs 07/11/24 09:43 Height 5 ft 2 in Weight 340 lb BMI 62.2 Intake Visit Reasons: Follow Up Intake Note: patient presents for follow up Allergies morphine [MORPHINE] Allergy (Intermediate, Verified 07/11/24 09:46) WBC ELEVATED/ N/V shellfish derived [SHELLFISH DERIVED] Allergy (Intermediate, Verified 07/11/24 09:46) HIVES iodine [IODINE] Allergy (Mild, Verified 07/11/24 09:46) RASH duloxetine Adverse Reaction (Intermediate, Verified 07/11/24 09:46) vomiting Medication List - Last Reconciled 07/11/24 by Miranda Zacarias MD acetazolamide 250 mg PO BID aripiprazole 10 mg PO DAILY bupropion HCl XL 300 mg PO QAM 30 days xivdgqwfoj-jogzyolsfogql-jobj 50-325-40 mg 1 tab PO Q6-8H PRN 30 days cholecalciferol (vitamin D3) 25 mcg PO DAILY clonazepam (Klonopin) 1 mg PO DAILY PRN 30 days fluoxetine 20 mg PO DAILY 30 days fluticasone propion-salmeterol 500-50 mcg/dose (Advair Diskus) 1 inh inhalation BID 30 days gabapentin 800 mg PO QID 30 days hydroxyzine HCl 50 mg PO TID PRN 30 days ipratropium-albuterol 0.5 mg-3 mg(2.5 mg base)/3 mL 3 mL inhalation Q4-6H PRN 30 days iron,carbonyl-vitamin C 65 mg iron- 125 mg (Vitron-C) 1 tab PO DAILY levothyroxine 175 mcg PO DAILY magnesium oxide 400 mg PO DAILY 30 days mecobalamin (vitamin B12) 1,000 mcg sublingual DAILY methocarbamol 500 mg PO TID PRN [NEBULIZER Use as directed as needed] omalizumab (Xolair) 300 mg subcut Q2W 28 days omeprazole 40 mg PO DAILY 90 days ondansetron 4 mg PO Q12H pantoprazole 40 mg PO DAILY polyethylene glycol 3350 17 grams PO DAILY sucralfate 10 mL PO BID thiamine HCl (vitamin B1) 100 mg PO DAILY tizanidine 4 mg PO TID PRN 30 days topiramate 50 mg PO BEDTIME 30 days Ventolin HFA 90 mcg/actuation (albuterol sulfate) 2 puffs inhalation Q4-6H PRN NS vitamin A palmitate 10,000 units PO DAILY HPI Comments Details: 39 y/o female comes here for follow up and evaluation of migraines, muscle spasm , cognitive issues and sleep apnea. The PSG sleep study result was mid degree of sleep apnea with increased severity in REM sleep. The AHI was 17/hr, REM AHI was 44/hr and oxygen domingo was 77%. Pt underwent titration study and started CPAP at 21yxP3T. The CPAP compliance and therapy response (06/11/24-07/10/24) reivewed. The usage days 100% and the average usage hours 8 hrs 39 min. The AHI was 0.6/hr. She sleeps well with CPAP, but wakes up tired. she also reports memory issues for 8 mths and progressing and feels foggy. she forgets she did the dishes , misplaces things etc. Pt reports that her throbbing headache's frequency and intensity has improved. She had 4-5 headache days before, now probably three times a week and it last about 15 min. she also reports painful muscle spasms - whole body usually triggered by a movement. she has 1 episode almost everyday and is scheduled to see a adjuster arbitrator. She is on gabapentin 800 mg QID, and topiramate 50 mg BID, has not been using Firocet for a while. she wakes up every morning with a migraine and feels like her head in full of air .It can last 8 hrs and uses advil or uses Vicks.she has daily migraines for years.she reports blurry vision for many years and have not have eye evaluation for over 20 years Pt is starting with new weight management with [employer]. The brain MRI result reviewed. Unremarkable noncontrast MRI of the brain. [facility] Medical History (Updated 07/11/24 @ 10:18 by Miranda Zacarias MD) Anxiety Chronic migraine without aura Cognitive disorder Multiple environmental allergies Morbid obesity with BMI of 60.0-69.9, adult MISALE (obstructive sleep apnea) GERD (gastroesophageal reflux disease) Anemia Morbid obesity Hypersomnia Loud snoring Blurry vision, bilateral Chronic migraine without aura PTSD (post-traumatic stress disorder) Bipolar depression Depression Morbid obesity with BMI of 45.0-49.9, adult Migraine Bilateral foot pain Fibromyalgia History of thyroid cancer Smoker Papillary thyroid carcinoma Post-surgical hypothyroidism Bilateral lower extremity edema Elevated LFTs Anxiety Asthma Hypothyroidism Cervical lymphadenopathy Vitamin D deficiency Thyroid cancer Surgical History History of esophagogastroduodenoscopy (EGD) Hx of tubal ligation History of surgery Hx of lymph node biopsy Hx of total thyroidectomy (~05/2020) Hx of section Hx of cholecystectomy Family History Father Diabetes Asthma Hypertension Mother Diabetes Hypertension Multiple sclerosis Daughter No problems noted. Daughter No problems noted. Daughter No problems noted. Daughter Deaf Asthma Daughter Deaf Son No problems noted. Son Asthma Son No problems noted. Social History Household Members: Spouse Housing: Apartment Are you a primary healthcare representative to a significant other at home: No Do you presently have visiting nurse or other home services: No Alcohol intake: current Alcohol intake frequency: holidays/special occasions only Patient Tobacco Use Status: Former Tobacco user Tobacco use type: Cigarette Years Smoked: 20 e-Cigarette/Vaping Use: Former Use Second Hand Smoke Exposure: Yes service: No Current occupational status: unemployed Current occupational exposures/hazards: No Cognitive needs: No Hearing needs: No Vision needs: No Female Reproductive History Menstrual Age of Menarche: 12 Physical Exam Vital Signs: BMI result Body Mass Index 62.2 Const General: cooperative and no acute distress Nutritional Appearance: obese Orientation/consciousness: patient oriented x3 Eyes Pupils: Equal, round and reactive pupils present Neuro Other: mallampatti grade 4 Mild postural tremors General: patient oriented x3, tone normal and moves all extremities Cranial nerves: Yes Facial sensation intact/muscles of mastication intact, Yes Equal, round and reactive pupils present, Yes Bilaterally intact EOM present, Yes Nystagmus not present and Yes Normal facial strength present Gait exam (Neuro): Antalgic gait present Motor exam (neuro): 5/5 motor strength present throughout and Normal motor muscle tone present throughout Deep tendon reflexes (DTR's): Right triceps reflex intensity grade: 1+, Left triceps reflex intensity grade: 1+, Rt Biceps (C5, C6): 1+, Left biceps reflex intensity grade: 1+, Right brachioradialis reflex intensity grade: 1+, Left brachioradialis reflex intensity grade: 1+, Right patellar reflex intensity grade: 1+ and Left patellar reflex intensity grade: 1+ Coordination: [id number] test normal Orientation What is the (year) (season) (date) (day) (month)?: year, season, date, day and month Where are we (state) (county) (town or city) (hospital) (floor)?: state, county, town or city, hospital/clinic and floor Registration Name of 3 unrelated objects clearly and slowly, then ask patient to repeat all 3 of them. (1st repeat determines score. Make sure they can repeat all three): object 1, object 2 and object 3 Attention & Calculation (CHOOSE ONE) Spell WORLD backwards (DLROW): 2 letters Recall Ask patient to repeat the 3 items from question #3.: object 1, object 2 and object 3 Language Show patient a wristwatch & ask what it is. Repeat for pencil.: watch and pencil Ask the patient to repeat the phrase 'No ifs, ands, or buts' after you.: correct Ask the patient to 'take a piece of paper with their right hand' 'fold paper in half' 'place paper on floor': take paper in right hand, fold paper in half and place paper on floor Print the sentence 'CLOSE YOUR EYES' on a piece. If patient actually closes eyes then score.: followed written direction Give patient a blank piece of paper & ask to write a sentence. Score if it contains a noun & verb.: sentence contains subject and verb Ask patient to copy figure of intersecting pentagons exactly. Score if all 10 angles & 2 intersects are included.: all 10 angles present & 2 are intersected Score Score: 27 Assessment & Plan Assessment & Plan (1) MISAEL (obstructive sleep apnea): Code(s): G47.33 - Obstructive sleep apnea (adult) (pediatric) Category: Medical (2) Cognitive disorder: Code(s): F09 - Unspecified mental disorder due to known physiological condition Category: Medical (3) Chronic migraine without aura: Code(s): G43.709 - Chronic migraine without aura, not intractable, without status migrainosus Category: Medical Qualifiers: Intractability: intractable Status migrainosus presence: without status migrainosus Qualified Code(s): G43.719 - Chronic migraine without aura, intractable, without status migrainosus (4) Dystonia: Code(s): G24.9 - Dystonia, unspecified Category: Medical Plan SHe is a very complex patients with multiple medical issues , new issues since her last visit . Her CPAP usage and sleep apnea is well controlled. Her MMSE was normal but she reports cognitive problems - could be relate dto poorly controlle dmood or othe rmetabolic issues. I will evaluate her with MRI brain , Vit B 12 Vit D ESR TSH etc Refer to psychiatry for management of mood F/u Rheumatology for fibromyalgia and muscle spasms For chronic headache s- I am concerned that she may have benign intracranial hypertension- will schedule LP after her MRI to check on her opening pressure. Ophthal eval I will trial her on Diamox 250mg bid Orders: Orders Vitamin B12 and Folate Today F09 - Unspecified mental disorder due to known physiological condition Complete Blood Count Auto Diff Today F09 - Unspecified mental disorder due to known physiological condition TSH reflex Free T4 Today F09 - Unspecified mental disorder due to known physiological condition SHEMAR Reflex Titer and Pattern Today F09 - Unspecified mental disorder due to known physiological condition MR head/brain wo con Today G24.9 - Dystonia, unspecified, G43.719 - Chronic migraine without aura, intractable, without status migrainosus, H53.9 - Unspecified visual disturbance Comprehensive Met. Panel Today F09 - Unspecified mental disorder due to known physiological condition Vitamin D 25-OH (D2 and D3) Today F09 - Unspecified mental disorder due to known physiological condition Erythrocyte Sedimentation Rate Today F09 - Unspecified mental disorder due to known physiological condition Referrals Ophthalmology Referral G43.719 - Chronic migraine without aura, intractable, without status migrainosus, H53.9 - Unspecified visual disturbance Psychiatry Outpatient Consultation Service F41.9 - Anxiety disorder, unspecified Medications: New acetazolamide 250 mg PO BID 60 tabs 6RF Changed From topiramate 50 mg PO BID 30 days 60 tabs 3RF To topiramate 50 mg PO BEDTIME 30 tabs 3RF 30 days Coding Level of Care Code New Pt Level 4 (18619) Complex EM visit Add On G2211 Diagnoses MISAEL (obstructive sleep apnea) G47.33 Cognitive disorder F09 Intractable chronic migraine without aura and without status migrainosus G43.719 Intractability: intractable Status migrainosus presence: without status migrainosus Dystonia G24.9 Time Spent (min) 75
--- OUTSIDE RECORDS SUMMARY | 2024-07-11 10:16 | XMS_ITS | Clinical Summary ---
Author Organization [facility] Address [address] [place] [address] Phone Care Team Providers Care White Hat Hacker Name Role Phone Patsy Narayanan MD Primary Care Provider Unavail able Allergies Active Allergy Reactions Criticality Noted Date Comments Morphine Swelling High 11/18/2017 Shellfish Derived Hives 05/30/2024 Encounters Date Type Department Care Team Description 05/30/2024 5:56 AM EST - 05/30/2024 6:[address] [facility] Emergency [address] [place] [id number] Max Daniels MD Muscle spasm (Primary Dx) Discharge Disposition: Home or Self Care from Last 3 Months Surgical History Surgery Date Site/Laterality Comments THYROIDECTOMY CHOLECYSTECTOMY SECTION Medical History Medical History Date Comments Multiple sclerosis (CMS/HCC) Thyroid cancer ([facility]/HCC) Lymphoma ([facility]/HCC) Social History Tobacco Use Types Packs/Day Years Used Date Smoking Tobacco: Former Cigarettes Smokeless Tobacco: Never Tobacco Cessation:Counseling Given: Not Answered Alcohol Use Standard Drinks/Week Comments Never 0 (1 standard drink = 0.6 oz pur e alcohol) Sex and Gender Information Value Date Recorded Sex Assigned at Female 07/09/2024 12:12 PM EST Gender Identity Female 07/09/2024 12:12 PM EST Sexual Orientation Straight 07/09/2024 12 :12 PM EST Obstetrics History Last Filed Vital Signs Vital [...] 05/30/2024 5:07 AM EST Plan of Treatment Upcoming Encounters Date Type Department Care Team (Late st Contact Info) Description 08/02/2024 11:30 AM EST Office Visit Bariatric Surgery - [place] [address] [place] [address] Christina Yu MD [address] [place] [address] Health Maintenance Due Date Last Done Comments COVID-19 Vaccine (#1) 1990 Pneumococcal Vaccine: Pediatrics (0 to 5 Years) and At-Risk Patients (6 to 64 Years) (1 of 2 - PCV) 1991 Hepatitis A Vaccines (1 of 2 - Risk 2-dose series) 2004 Hepatitis B Vaccines (1 of 3 - 19+ 3-dose series) 2004 Cervical Cancer Screening: P ap Smear 2006 Influenza Vaccine (#1) 2024 6, 03/27/2014, 02/20/2013 Cholesterol Screening (Lipid Panel) 05/30/2024 Depression Screening 05/30/2024 HIV Screening 05/30/2024 Hepatitis C Screening 05/30/2024 Social Influencers of Health Screening 05/30/2024 DTaP,Tdap,and Td Vaccines (4 - Td or Tdap) 03/19/2026 03/19/2016, 03/27/2014, 05/15/2013 Varicella Vaccines Aged Out 07/22/2013 No longer eligible based on patient's age to complete this topic MMR Vaccines Aged Out 03/26/2016, 07/22/2013 No longer eligible based on patient's age to complete this topic HIB Vaccines Aged Out No longer eligi [...] to complete this topic RSV Immunization Patients Under 20 months Aged Out No longer eligible [...] LAB CHEMISTRY METHOD 05/30/2024 6:[address] [facility] ([facility]) [facility] Comment:Certain OTC medicati ons containing ephedrine, phenylephrine, pseudoephedrine and phenylpropanolamine can cause false positive results. Barbiturate Screen, Ur Negative Negative LAB CHEMISTRY METHOD 05/30/2024 6:31 AM [facility] Benzodiazepine Screen, Ur Negative Negative LAB CHEMISTRY METHOD 05/30/2024 6:31 AM [facility] Cocaine Screen, Ur Negative Negative LAB CHEMISTRY METHOD 05/30/2024 6:31 AM [facility] Opiate Screen, Ur Negative Negative LAB CHEMISTRY METHOD 05/30/2024 6:31 AM [facility] Cannabinoid (THC) Screen, Ur Negative Negative LAB CHEMISTRY METHOD 05/30/2024 6:31 AM [facility] Comment:Specimens from patie nts taking pantoprazole sodium (Protonix) have been shown to produce false positive results. Oxycodone Screen, Ur Negative Negative LAB CHEMISTRY METHOD 05/30/2024 6:31 AM [facility] Fentanyl, Ur Negative Negative LAB CHEMISTRY METHOD 05/30/2024 6:31 AM [facility] Urine Urine specimen obtained by clean catch procedure / Unknown Non-blood Collection / Unknown 05/30/2024 5:58 AM EST 05/30/2024 6:07 AM EST [facility] - 05/30/2024 6:31 AM EST [...] ONLY* Max Daniels MD LAB URINE ORDERABLES [facility]) [facility] [address] [place] [address], * Buprenorphine screen, urine (05/30/2024 5:58 AM EST) Buprenorphine Screen Urine Negative Negative LAB CHEMISTRY METHOD 05/30/2024 6:[address] [facility] Urine Urine specimen obtained by clean catch procedure / Unknown Non-blood Collection / Unknown 05/30/2024 5:58 AM EST 05/30/2024 6:[address] [facility] - 05/30/2024 6:31 AM EST Assay cutoff 5 ng/mL Semi-quantitative assay for screening purposes only. Unconfirmed screening result should not be used for non-medical purposes. *ALTERNATE METHOD CONFIRMATION DONE UPON REQUEST ONLY* Max Daniels MD LAB URINE ORDERABLES Performing Organization Address [facility]/ZIP Co de Phone Number [facility] [address] [place] [address], * Methadone, urine (05/30/2024 5:58 AM EST) Pathologist [facility] Methadone Screen, Urine Negative Negative LAB CHEMISTRY METHOD 05/30/2024 6:[address] [facility] Comment: Assay cutoff 300 ng/mL Semi-quantitative assay for screening purposes only. Unconfirmed screening result should not be used for non-medical purposes. *ALTERNATE METHOD CONFIRMATION DONE UPON REQUEST ONLY* Urine Urine specimen obtained by clean catch procedure / Unknown Non-blood Collection / Unknown 05/30/2024 5:58 AM EST 05/30/2024 6:07 AM EST Max Daniels MD LAB URINE ORDERABLES Performing Organization Address City/[facility]/ZIP Co de Phone Number [facility] [address] [place] [address], [place] [phone] * Phencyclidine, urine (05/30/2024 5:58 AM EST) PCP Scrn, Ur Negative Negative LAB CHEMISTRY METHOD 05/30/2024 6:31 AM [facility] Comment: Assay cutoff 25 ng/mL Semi-quantitative assay for screening purposes only. Unconfirmed screening result should not be used for non-medical purposes. *ALTERNATE METHOD CONFIRMATION DONE UPON REQUEST ONLY* Urine Urine specimen obtained by clean catch procedure / Unknown Non-blood Collection / Unknown 05/30/2024 5:58 AM EST 05/30/2024 6:07 AM EST Max Daniels MD LAB URINE ORDERABLES [facility] [address] [place] [address], * (ABNORMAL) CBC auto differential (05/30/2024 5:52 AM EST) WBC 13.1(H) 4.8 - 10.8 K/mcL LAB HEMETOLOGY METHOD 05/30/2024 6:13 AM [facility] RBC 4.50 3.80 - 4.80 M/mcL LAB HEMETOLOGY METHOD 05/30/2024 6:13 AM [facility] Hemoglobin 11.6 11.5 - 16.0 g/dL LAB HEMETOLOGY METHOD 05/30/2024 6:13 AM [facility] Hematocrit 37.9 35.0 - 47.0 % LAB HEMETOLOGY METHOD 05/30/2024 6:13 AM [facility] MCV 85.2 79.0 - 98.0 FL LAB HEMETOLOGY METHOD 05/30/2024 6:13 AM [facility] MCH 26.1(L) 27.0 - 32.0 pcg LAB HEMETOLOGY METHOD 05/30/2024 6:13 AM [facility] MCHC 30.6(L) 32.0 - 37.0 g/dL LAB HEMETOLOGY METHOD 05/30/2024 6:13 AM [facility] RDW 16.3(H) 11.0 - 15.0 % LAB HEMETOLOGY METHOD 05/30/2024 6:13 AM [facility] Platelets 435(H) 130 - 400 K/mcL LAB HEMETOLOGY METHOD 05/30/2024 6:13 AM [facility] MPV 9.1 7.0 - 11.0 FL LAB HEMETOLOGY METHOD 05/30/2024 6:13 AM [facility] NRBC 0.0 <1.0 % LAB HEMETOLOGY METHOD 05/30/2024 6:13 AM [facility] NRBC Absolute 0.00 <0.10 K/mcL LAB HEMETOLOGY METHOD 05/30/2024 6:13 AM [facility] Neutrophils Relative 51.2 % LAB HEMETOLOGY METHOD 05/30/2024 6:13 AM [facility] Lymphocytes Relative 34.7 % LAB HEMETOLOGY METHOD 05/30/2024 6:13 AM [facility] Monocytes Relative 7.3 % LAB HEMETOLOGY METHOD 05/30/2024 6:13 AM [facility] Eosinophils Relative 5.4 % LAB HEMETOLOGY METHOD 05/30/2024 6:13 AM [facility] Basophils Relative 0.6 % LAB HEMETOLOGY METHOD 05/30/2024 6:13 AM [facility] Immature Granulocytes Relative 0.8 % LAB HEMETOLOGY METHOD 05/30/2024 6:13 AM [facility] Neutrophils Absolute 6.71 1.50 - 7.00 K/mcL LAB HEMETOLOGY METHOD 05/30/2024 6:13 AM [facility] Lymphocytes Absolute 4.53 1.00 - 5.00 K/mcL LAB HEMETOLOGY METHOD 05/30/2024 6:13 AM [facility] Monocytes Absolute 0.95 0.20 - 1.00 K/mcL LAB HEMETOLOGY METHOD 05/30/2024 6:[address] [facility] Eosinophils Absolute 0.70(H) 0.00 - 0.50 K/[facility] LAB HEMETOLOGY METHOD 05/30/2024 6:[address] [facility] Basophils Absolute 0.08 0.00 - 0.20 K/[facility] LAB HEMETOLOGY METHOD 05/30/2024 6:[address] [facility] Immature Granulocytes Absolute 0.10(H) 0.00 - 0.03 K/[facility] HEMETOLOGY METHOD 05/30/2024 6:[address] [facility] Blood Venous blood specimen / Unknown Venipuncture / Unknown 05/30/2024 5:52 AM EST 05/30/2024 6:06 AM EST Max Daniels MD LAB BLOOD ORDERABLES [facility] [address] [place] [address], * Magnesium (05/30/2024 5:52 AM EST) Magnesium 2.2 1.9 - 2.6 mg/dL LAB CHEMISTRY METHOD 05/30/2024 6:[address] [facility] Blood Venous blood specimen / Unknown Venipuncture / Unknown 05/30/2024 5:52 AM EST 05/30/2024 6:07 AM EST Max Daniels MD LAB BLOOD ORDERABLES [facility] [address] [place] [address], [place] [phone] * (ABNORMAL) Ethanol (05/30/2024 5:52 AM EST) Ethanol Level 298(H) 0 - 10 mg/dL LAB CHEMISTRY METHOD 05/30/2024 6:[address] [facility] Blood Venous blood specimen / Unknown Venipuncture / Unknown 05/30/2024 5:52 AM EST 05/30/2024 6:07 AM EST Max Daniels MD LAB BLOOD ORDERABLES Performing Organization Address [facility]/ZIP Co de Phone Number [facility] [address] [place] [address], [place] [phone] * (ABNORMAL) Acetaminophen level (05/30/2024 5:52 AM EST) Acetaminophen Level <2.0(L) 10.0 - 30.0 mcg/mL LAB CHEMISTRY METHOD 05/30/2024 6:[address] [facility] Blood Venous blood specimen / Unknown Venipuncture / Unknown 05/30/2024 5:52 AM EST 05/30/2024 6:07 AM EST Max Daniels MD LAB BLOOD ORDERABLES Performing Organization Address [facility] de Phone Number [facility] [address] [place] [address], [place] [phone] * (ABNORMAL) Salicylate level (05/30/2024 5:52 AM EST) Salicylate Level <1.7(L) 2.0 - 29.0 mg/dL LAB CHEMISTRY METHOD 05/30/2024 6:[address] [facility] Blood Venous blood specimen / Unknown Venipuncture / Unknown 05/30/2024 5:52 AM EST 05/30/2024 6:07 AM EST Max Daniels MD LAB BLOOD ORDERABLES Performing Organization Address City/[facility]/ZIP Co de Phone Number [facility] [address] [place] [address], [place] [phone] * (ABNORMAL) Basic metabolic panel (05/30/2024 5:52 AM EST) Sodium 134 133 - 145 mmol/L LAB CHEMISTRY METHOD 05/30/2024 6:26 AM [facility] Potassium 4.2 3.5 - 5.5 mmol/L LAB CHEMISTRY METHOD 05/30/2024 6:26 AM [facility] Chloride 103 96 - 110 mmol/L LAB CHEMISTRY METHOD 05/30/2024 6:26 AM [facility] CO2 20(L) 21 - 32 mmol/L LAB CHEMISTRY METHOD 05/30/2024 6:26 AM [facility] Anion Gap 11 3 - 11 LAB CHEMISTRY METHOD 05/30/2024 6:26 AM [facility] Glucose 113(H) 70 - 100 mg/dL LAB CHEMISTRY METHOD 05/30/2024 6:26 AM [facility] BUN 10 5 - 25 mg/dL LAB CHEMISTRY METHOD 05/30/2024 6:26 AM [facility] Creatinine 1.07 0.50 - 1.10 mg/dL LAB CHEMISTRY METHOD 05/30/2024 6:26 AM [facility] eGFR 68 >=60 mL/min/1. 73m2 LAB CHEMISTRY METHOD 05/30/2024 6:26 AM [facility] Comment:Calculation based on the??Chronic Kidney Disease Epidemiology Collaboration (CKD-EPI) equation refit??without adjustment for race. BUN/Creatinine Ratio 9.3 LAB CHEMISTRY METHOD 05/30/2024 6:26 AM [facility] Calcium 8.8 8.5 - 10.5 mg/dL LAB CHEMISTRY METHOD 05/30/2024 6:26 AM [facility] Blood Venous blood specimen / Unknown Venipuncture / Unknown 05/30/2024 5:52 AM EST 05/30/2024 6:07 AM EST Max Daniels MD LAB BLOOD ORDERABLES [facility] ([facility]) [facility] [address] [place] [address], from Last 3 Months Care Teams White Hat Hacker Relationship Specialty Start Date End Date Patsy Narayanan MD PCP - General Internal Medicine 11/17/17
== END 2024-07-11 10:23 | disposition home or self-care (01) ==
PROVIDERS: PCP Internal Medicine; Visit Provider Psychiatry & Neurology Neurology
DX: G47.33 Obstructive sleep apnea (adult) (pediatric) (principal); R41.89 Other symptoms and signs involving cognitive functions and awareness; G43.719 Chronic migraine without aura, intractable, without status migrainosus; G24.9 Dystonia, unspecified
CPT/HCPCS: 99214; G2211

== ENCOUNTER 2024-07-17 09:48 | Outpatient (AMB) | payer OTHER, SELFPAY ==
--- NOTE | 2024-07-17 09:50 | MHC.OFFVIS ---
Vital Signs 07/17/24 10:04 Height 5 ft 2 in Weight 322 lb 4 oz BMI 58.9 BP 149/68 H Blood Pressure Location Lt brachial Position Sitting Pulse 97 Intake Visit Reasons: Painful lipoma posterior neck Intake Note: Patient is seen in office for evaluation of a lipoma of the neck. Pt c/o: lipoma on the back of the neck, for aprox 8 months, increase in size, sharp pain at times, denies redness, discharge or infections ref Dylan 06/29/24 Second Mate Required: No Accompanied by: Self / Same As Patient Allergies morphine [MORPHINE] Allergy (Intermediate, Verified 07/17/24 10:00) WBC ELEVATED/ N/V shellfish derived [SHELLFISH DERIVED] Allergy (Intermediate, Verified 07/17/24 10:00) HIVES iodine [IODINE] Allergy (Mild, Verified 07/17/24 10:00) RASH duloxetine Adverse Reaction (Intermediate, Verified 07/17/24 10:00) vomiting Medication List - Last Reconciled 07/17/24 by Real Huffman MD acetazolamide 250 mg PO BID aripiprazole 10 mg PO DAILY bupropion HCl XL 300 mg PO QAM 30 days rupzvzuekj-faisdivxazctb-xefj 50-325-40 mg 1 tab PO Q6-8H PRN 30 days cholecalciferol (vitamin D3) 25 mcg PO DAILY clonazepam (Klonopin) 1 mg PO DAILY PRN 30 days fluoxetine 20 mg PO DAILY 30 days fluticasone propion-salmeterol 500-50 mcg/dose (Advair Diskus) 1 inh inhalation BID 30 days gabapentin 800 mg PO QID 30 days hydroxyzine HCl 50 mg PO TID PRN 30 days ipratropium-albuterol 0.5 mg-3 mg(2.5 mg base)/3 mL 3 mL inhalation Q4-6H PRN 30 days iron,carbonyl-vitamin C 65 mg iron- 125 mg (Vitron-C) 1 tab PO DAILY levothyroxine 175 mcg PO DAILY methocarbamol 500 mg PO TID PRN [NEBULIZER Use as directed as needed] omalizumab (Xolair) 300 mg subcut Q2W 28 days omeprazole 40 mg PO DAILY 90 days ondansetron 4 mg PO Q12H pantoprazole 40 mg PO DAILY polyethylene glycol 3350 17 grams PO DAILY sucralfate 10 mL PO BID tizanidine 4 mg PO TID PRN 30 days topiramate 50 mg PO BEDTIME 30 days Ventolin HFA 90 mcg/actuation (albuterol sulfate) 2 puffs inhalation Q4-6H PRN NS HPI Comments Details: 39-year-old female patient presenting for evaluation of a lump in the posterior neck. This has been present for least 8 months not longer. She reports wearing a CPAP machine at night feels the strap rubs against this area of her neck which is causing discomfort. She also reports recently being diagnosed with a wisdom tooth infection. She previously had a tooth extracted however recently found out a portion of the tooth remains and is infected. She feels this may be connected to the pain in her neck. She is currently on antibiotics to treat this in his awaiting a visit to the oral surgeon. [facility] Medical History Anxiety Chronic migraine without aura Cognitive disorder Multiple environmental allergies Morbid obesity with BMI of 60.0-69.9, adult MISAEL (obstructive sleep apnea) GERD (gastroesophageal reflux disease) Anemia Morbid obesity Hypersomnia Loud snoring Blurry vision, bilateral Chronic migraine without aura PTSD (post-traumatic stress disorder) Bipolar depression Depression Morbid obesity with BMI of 45.0-49.9, adult Migraine Bilateral foot pain Fibromyalgia History of thyroid cancer Smoker Papillary thyroid carcinoma Post-surgical hypothyroidism Bilateral lower extremity edema Elevated LFTs Anxiety Asthma Hypothyroidism Cervical lymphadenopathy Vitamin D deficiency Thyroid cancer Surgical History History of esophagogastroduodenoscopy (EGD) Hx of tubal ligation History of surgery Hx of lymph node biopsy Hx of total thyroidectomy (~05/2020) Hx of section Hx of cholecystectomy Family History Father Diabetes Asthma Hypertension Mother Diabetes Hypertension Multiple sclerosis Daughter No problems noted. Daughter No problems noted. Daughter No problems noted. Daughter Deaf Asthma Daughter Deaf Son No problems noted. Son Asthma Son No problems noted. Social History Household Members: Spouse Housing: Apartment Are you a primary director of patient care to a significant other at home: No Do you presently have visiting nurse or other home services: No Alcohol intake: current Alcohol intake frequency: holidays/special occasions only Patient Tobacco Use Status: Former Tobacco user Tobacco use type: Cigarette Years Smoked: 20 e-Cigarette/Vaping Use: Former Use Second Hand Smoke Exposure: Yes service: No Current occupational status: unemployed Current occupational exposures/hazards: No Cognitive needs: No Hearing needs: No Vision needs: No Female Reproductive History Menstrual Age of Menarche: 12 Review of Systems Const All systems reviewed & are unremarkable except as noted in HPI and below Denies chills, Denies fever(s), Reports headache(s), Denies poor appetite and Denies weakness ENT Reports headache(s) and Reports neck pain Card Denies chest pain, Denies irregular heart rhythm, Denies palpitations and Denies dyspnea Resp Denies cough, Denies excessive phlegm production and Denies dyspnea GI Denies abdominal pain, Denies bloating, Denies change in bowel habits, Denies constipation, Denies heartburn, Denies diarrhea, Denies nausea and Denies vomiting Denies urinary frequency Musc Reports back pain, Denies muscle weakness, Reports neck pain and Denies numbness Skin/Breast Denies changing lesions and Denies unusual bruising Neuro Reports headache(s), Denies numbness, Denies paresthesias and Denies weakness Psych Denies anxiety and Denies depression Endo Denies palpitations Parish/Lymph Denies lymphadenopathy Physical Exam Vital Signs: Last Vital Signs Pulse 97 07/17/24 10:04 BP 149/68 H 07/17/24 10:04 BMI result Body Mass Index 58.9 Const General: cooperative and no acute distress Nutritional Appearance: well nourished Orientation/consciousness: patient oriented x3 Limitations: no limitations HEENT Head: Yes normocephalic and Yes atraumatic Ears: hearing grossly normal bilaterally Neck Other: No definite palpable masses appreciated to my examination and no definite lymphadenopathy is appreciated. Patient is pointing to an area over the right lateral posterior neck directly over the neck muscles. No skin changes are appreciated as well. Neck images: 1. Area described by the patient as a palpable mass. No definite masses appreciated in this location. Resp Effort & Inspection: normal respiratory effort, no audible wheezes, no cough and no respiratory distress Cardio Jugular venous distension: no JVD GI Inspection: Yes normal to inspection Skin Other: Warm, dry, no rash Neuro General: patient oriented x3 Extrem General: Yes no clubbing, cyanosis or edema Assessment & Plan Assessment & Plan (1) Lipoma: Code(s): D17.9 - Benign lipomatous neoplasm, unspecified Category: Medical Qualifiers: Lipoma location: neck Qualified Code(s): D17.0 - Benign lipomatous neoplasm of skin and subcutaneous tissue of head, face and neck Plan 39-year-old female patient presenting with a palpable mass of the posterior right neck unknown etiology. It is possible this may be normal muscular tissue verses lymphadenopathy. I recommended further evaluation with an ultrasound of the region. She will return following the study to review the results and discuss treatment options. Orders: Orders US soft tiss head and/or neck Today D17.0 - Benign lipomatous neoplasm of skin and subcutaneous tissue of head, face and neck Coding Level of Care Code New Pt Level 4 (67379) Diagnoses Lipoma of neck D17.0 Lipoma location: neck
[2024-07-17 10:04] VITALS: BP 149/68; PULSE 97; BMI 58.9
== END 2024-07-17 10:49 | disposition home or self-care (01) ==
PROVIDERS: PCP Internal Medicine; Visit Provider Surgery
DX: D17.0 Benign lipomatous neoplasm of skin and subcutaneous tissue of head, face and neck (principal)
CPT/HCPCS: 99204

== ENCOUNTER → 2024-07-17 09:48 | Outpatient (BNVA) | payer OTHER, SELFPAY | PROVIDERS: PCP Internal Medicine; Visit Provider Surgery | DX: D17.0 Benign lipomatous neoplasm of skin and subcutaneous tissue of head, face and neck (principal); Z99.89 Dependence on other enabling machines and devices | CPT/HCPCS: 99202 ==

== ENCOUNTER 2024-07-18 17:40 | Outpatient (REF) | payer OTHER, SELFPAY ==
--- NOTE | ~2024-07-18 | MR_ITS ---
EXAMINATION: MR BRAIN WITHOUT CONTRAST CLINICAL INFORMATION: Chronic migraine without aura. Intractable. COMPARISON: March 24, 2023. TECHNIQUE: MRI of the brain was obtained using routine sequences without contrast. FINDINGS: No acute intracranial hemorrhage, mass effect, midline shift, hydrocephalus or herniation. No restricted diffusion within the brain parenchyma. Lawrence-white matter differentiation is normal. Posterior cranial fossa contents demonstrated no acute intracranial hemorrhage or mass effect. Sellar/suprasellar region is normal. Craniocervical junction is intact and normal. Midline structures are normal. Flow-void signal within the main cerebral vessels is normal. Mucosal thickening, ethmoid cells frontal sinuses. Small cavum septum pellucidum, congenital. Prominent palatine tonsils narrowing the oropharynx. MR/MR head/brain wo con IMPRESSION: No acute or structural brain abnormality. Mild chronic paranasal sinus disease. Prominence/enlarged palatine tonsils. Inflammatory versus infectious processes should be considered. Lymphoproliferative disorder cannot be excluded. Recommend direct inspection. Electronically signed by: Kendall Yoo MD 07/19/2024 07:17 AM [facility]
== END 2024-07-18 17:41 | disposition home or self-care (01) ==
LOC: HO.MRI 17:40
PROVIDERS: PCP Internal Medicine; Visit Provider Psychiatry & Neurology Neurology
DX: G43.719 Chronic migraine without aura, intractable, without status migrainosus (principal); G24.9 Dystonia, unspecified; H53.9 Unspecified visual disturbance
CPT/HCPCS: 70551

== ENCOUNTER → 2024-07-18 17:45 | Outpatient (BNV) | payer OTHER, SELFPAY | PROVIDERS: PCP Internal Medicine; Visit Provider Radiology Diagnostic Radiology | DX: G43.719 Chronic migraine without aura, intractable, without status migrainosus (principal) | CPT/HCPCS: 70551 ==

== ENCOUNTER 2024-08-01 15:56 | Outpatient (AMB) | payer OTHER, SELFPAY ==
--- NOTE | 2024-08-01 16:00 | A.OFFPC_ITS ---
Vital Signs 08/01/24 16:01 Height 5 ft 2 in Weight 322 lb BMI 58.9 BP 116/72 Blood Pressure Location Lt brachial Position Sitting Pulse 96 Pulse Source Pulse Oximeter Temp 98.9 F Temp Source Oral Pulse Oximetry (%) 96 Oxygen Delivery Method Room Air Intake Visit Reasons: tonsils and throat Allergies morphine [MORPHINE] Allergy (Intermediate, Verified 08/01/24 16:19) WBC ELEVATED/ N/V shellfish derived [SHELLFISH DERIVED] Allergy (Intermediate, Verified 08/01/24 16:19) HIVES iodine [IODINE] Allergy (Mild, Verified 08/01/24 16:19) RASH duloxetine Adverse Reaction (Intermediate, Verified 08/01/24 16:19) vomiting Medication List - Last Reconciled 08/01/24 by MORRIS Bonilla acetazolamide 250 mg PO BID aripiprazole 10 mg PO DAILY bupropion HCl XL 300 mg PO QAM 30 days iyetddjegl-rrvzeqcrqfjbj-vxgx 50-325-40 mg 1 tab PO Q6-8H PRN 30 days cholecalciferol (vitamin D3) 25 mcg PO DAILY clonazepam (Klonopin) 1 mg PO DAILY PRN 30 days fluoxetine 20 mg PO DAILY 30 days fluticasone propion-salmeterol 500-50 mcg/dose (Advair Diskus) 1 inh inhalation BID 30 days gabapentin 800 mg PO QID 30 days hydroxyzine HCl 50 mg PO TID PRN 30 days ipratropium-albuterol 0.5 mg-3 mg(2.5 mg base)/3 mL 3 mL inhalation Q4-6H PRN 30 days iron,carbonyl-vitamin C 65 mg iron- 125 mg (Vitron-C) 1 tab PO DAILY levothyroxine 175 mcg PO DAILY methocarbamol 500 mg PO TID PRN [NEBULIZER Use as directed as needed] omalizumab (Xolair) 300 mg subcut Q2W 28 days omeprazole 40 mg PO DAILY 90 days ondansetron 4 mg PO Q12H pantoprazole 40 mg PO DAILY polyethylene glycol 3350 17 grams PO DAILY sucralfate 10 mL PO BID tizanidine 4 mg PO TID PRN 30 days topiramate 50 mg PO BEDTIME 30 days Ventolin HFA 90 mcg/actuation (albuterol sulfate) 2 puffs inhalation Q4-6H PRN NS Tobacco use date assessed: 06/29/24 Dental Screening Dental Screen Date: 08/01/24 Did you have a dental visit in the last 12 months?: Yes Did you have a dental problem in the last 6 months where you did not have access to dental care?: No Was dental information given to patient?: Patient has dentist HPI tonsils and throat HPI Details Patient is a 39-year-old female with significant past medical history of chronic migraine without aura, cognitive disorder, anxiety, multiple environmental allergies, morbid obesity, severe persistent asthma, speech impediment, sleep apnea Patient of Dr. Richardson. Last seen in office on 06/29/24 Patient is presenting with concerns for enlarged tonsils. The patient had an MRI done due to her chronic migraines and was noted on the MRI that the patient tonsils were enlarged. The patient reports that she has a lump on the back of her neck and she has an ultrasound pending. Reports that she has severe headaches and wanted to know what could be done. In reviewing of the patient medication, the patient is taking topiramate 50 mg at bedtime and Fioricet q.6 to 8 hours as needed. Patient reports that she does not remember using the Fioricet medication. Fioricet was refilled and explained to the patient that this medication should be used for breakthrough headaches. But it is not supposed to be used often or she will end up with a rebound headache. Patient complained of small itchy, red bumps lower chest and up arms. [facility] Medical History Anxiety Chronic migraine without aura Cognitive disorder Multiple environmental allergies Morbid obesity with BMI of 60.0-69.9, adult MISAEL (obstructive sleep apnea) GERD (gastroesophageal reflux disease) Anemia Morbid obesity Hypersomnia Loud snoring Blurry vision, bilateral Chronic migraine without aura PTSD (post-traumatic stress disorder) Bipolar depression Depression Morbid obesity with BMI of 45.0-49.9, adult Migraine Bilateral foot pain Fibromyalgia History of thyroid cancer Smoker Papillary thyroid carcinoma Post-surgical hypothyroidism Bilateral lower extremity edema Elevated LFTs Anxiety Asthma Hypothyroidism Cervical lymphadenopathy Vitamin D deficiency Thyroid cancer Surgical History History of esophagogastroduodenoscopy (EGD) Hx of tubal ligation History of surgery Hx of lymph node biopsy Hx of total thyroidectomy (~05/2020) Hx of section Hx of cholecystectomy Family History Father Diabetes Asthma Hypertension Mother Diabetes Hypertension Multiple sclerosis Daughter No problems noted. Daughter No problems noted. Daughter No problems noted. Daughter Deaf Asthma Daughter Deaf Son No problems noted. Son Asthma Son No problems noted. Other FH: mental illness Social History Household Members: Spouse Housing: Apartment Are you a primary skin care therapist to a significant other at home: No Do you presently have visiting nurse or other home services: No Alcohol intake: current Alcohol intake frequency: holidays/special occasions only Patient Tobacco Use Status: Former Tobacco user Tobacco use type: Cigarette Years Smoked: 20 e-Cigarette/Vaping Use: Former Use Second Hand Smoke Exposure: Yes service: No Current occupational status: unemployed Current occupational exposures/hazards: No Cognitive needs: No Hearing needs: No Vision needs: Yes Female Reproductive History Menstrual Age of Menarche: 12 Questionnaire PHQ-9 Over the last 2 weeks, how often have you been bothered by any of the following problems? 1. Little interest or pleasure in doing things: nearly every day 2. Feeling down, depressed, or hopeless: nearly every day 3. Trouble falling or staying asleep, or sleeping too much: nearly every day 4. Feeling tired or having little energy: more than half the days 5. Poor appetite or overeating: more than half the days 6. Feeling bad about yourself - or that you are a failure or have let yourself or your family down: more than half the days 7. Trouble concentrating on things, such as reading the newspaper or watching t elevision: not at all 8. Moving or speaking so slowly that other people could have noticed. Or the opposite - being so fidgety or restless that you have been moving around a lot more than usual: not at all 9. Thoughts that you would be better off or of hurting yourself in some way: not at all Total score: 15 Depression Screening Interpretation: Positive Depression Screening Follow-up: Existing condition, In treatment and Community Mental Health Worker F/U Depression Screening Done: Yes Source: Developed by Drs. Alexander Avila, Shirlene Travis, Valdemar Cruz and colleagues, with an educational dilma from [employer]. Thrive Questionnaire Date Thrive assessed: 08/01/24 I am a: Patient What is your living situation today?: I have a steady place to live Within the past 12 months, did the food you bought not last and you didn't have the money to get more?: Often true Within the past 12 months, did you worry whether your food would run out before you got money to buy more?: Often true Do you have trouble paying for medicines?: No Do you have trouble getting transportation to medical appointments?: No Do you have trouble paying your heating and electricity bill?: No Do you have trouble taking care of your child, family member or friend?: No Do you have trouble with day-to-day activities such as bathing, preparing meals, shopping, managing finances, etc.?: No Are you currently unemployed and looking for a job?: Yes Are you interested in more education?: No Please select the resources that you would like help with: None Currently or been in a relationship where the following occur: No concerns reported THRIVE Score: 2 AUDIT C Alcohol Use Questionnaire (AUDIT-C) 1. How often do you have a drink containing alcohol?: Never 3. How often do you have six or more drinks on one occasion?: Never Total Score: 0 RUSESLL-7 AMB Questionnaire RUSSELL-7 Date RUSSELL - 7 assessed: 08/01/24 Feeling nervous, anxious, or on edge: 2 = More than half the days Not being able to stop or control worryin = More than half the days Worrying too much about different things: 2 = More than half the days Trouble relaxin = More than half the days Being so restless that it is hard to sit still: 2 = More than half the days Becoming easily annoyed or irritable: 2 = More than half the days Feeling afraid as if something awful might happen: 1 = Several days Total RUSSELL-7 score (0-4 normal; 5-9 mild; 10-14 moderate; 15-21 severe): 13 Source: Developed by Shirlene Ruiz, Valdemar Cruz and colleagues, with an educational dilma from [employer] Review of Systems Const Details: Denies chills, Denies fatigue, Denies fever(s), +headache (chronic migraines) (s) and Denies weakness HEENT Denies change in vision, Denies dizziness, +headache (chronic migraines) (s), Denies hearing loss, Denies nasal congestion, Denies sinus pain, Denies sinus pressure and Denies sore throat Card Denies chest pain, Denies lightheadedness, Denies dyspnea and Denies other (palpitations) Resp Denies cough, Denies dyspnea and Denies wheezing GI Denies abdominal pain, Denies melena, Denies hematochezia, Denies change in bowel habits, Denies dyspepsia and Denies nausea Denies hematuria and Denies dysuria Musc Denies abnormal gait, Denies myalgias, Denies arthralgias, Denies numbness and Denies tingling Skin/Breast Denies rash, Denies unusual bruising and Denies wounds, reports lump in the back of her neck other: itchy rash to chest and upper arms Psych Reports anxiety, reports depression and Denies memory loss Endo Denies cold intolerance, Denies fatigue, Denies heat intolerance, Denies polydipsia and Denies polyuria Parish/Lymph Denies easy bleeding and Denies easy bruising Aller/Immun Denies wheezing Physical exam (Primary Care) Vital Signs: Last Vital Signs Temp 98.9 F 08/01/24 16:01 Pulse 96 08/01/24 16:01 BP 116/72 08/01/24 16:01 Pulse Ox 96 08/01/24 16:01 Oxygen Delivery Method Room Air 08/01/24 16:01 BMI result Body Mass Index 58.9 Tobacco/Smoking Status: Tobacco use Status Tobacco use date assessed 06/29/24 08/01/24 16:06 Patient Tobacco Use Status Former Tobacco user 08/01/24 16:06 Tobacco use type Cigarette 08/01/24 16:06 e-Cigarette/Vaping Use Former Use 08/01/24 16:06 PHQ-9: PHQ-9 Score PHQ-9: Total score 15 08/01/24 16:25 Depression Screening Interpretation: Positive Depression Screening Follow-up: Existing condition, In treatment and Community Mental Health Worker F/U Thrive Assessment: Date of Thrive Assessment Date Thrive assessed 08/01/24 08/01/24 16:14 Currently or been in a relationship where the following occur: No concerns reported Const Other: General: no acute distress, well developed, alert and awake Nutritional Appearance: well nourished Orientation/consciousness: patient oriented x3 HENMT Head: Yes normocephalic and Yes atraumatic Ears: hearing grossly normal bilaterally and TM's normal bilaterally General nose exam: Normal external nose present and Normal nares present Mouth: Normal oral and palatal mucosa present and moist mucous membranes enlarge tonsils present-tender to palpation at the submandibular triangle region Teeth and gingiva: dentition normal Throat: Yes oropharynx normal Eyes Pupils: Equal, round and reactive pupils present and Pupil accommodation reflex normal EOM: EOMs intact bilaterally Neck Neck: Yes normal visual inspection, Yes no lymphadenopathy and Yes trachea midline Thyroid: Thyroid normal Lymphatic: no lymphadenopathy noted Resp Effort & Inspection: normal respiratory effort Auscultation: clear to auscultation bilaterally Cardio Rate: regular rate Rhythm: regular rhythm Heart sounds: S1 normal heart sound present, S2 normal heart sound present, no gallops, no murmurs and no rubs GI Palpation (GI): Abdomen is soft and nontender to palpation Auscultation: normal bowel sounds General: Yes no CVA tenderness Skin: scattered erthematous bumps-consistent with an allergic reaction Neuro General: patient oriented x3, gait normal Cranial nerves: Yes Equal, round and reactive pupils present Cognition (Neuro): normal cognition Gait exam (Neuro): Normal gait present Extrem General: Yes normal to inspection, No edema and No calf tenderness Psych Appearance: grossly normal Affect: normal affect Attitude: cooperative Thought process: Normal thought process present Coding Level of Care Code Est Pt Level 4 (68310) Diagnoses Acute bacterial tonsillitis J03.80; B96.89 Rash R21 Intractable chronic migraine without aura and without status migrainosus G43.719 Status migrainosus presence: without status migrainosus Intractability: intractable Lipoma of neck D17.0 Lipoma location: neck Time Spent (min) 34 Assessment & Plan Assessment & Plan (1) Acute bacterial tonsillitis: Code(s): J03.80 - Acute tonsillitis due to other specified organisms; B96.89 - Other specified bacterial agents as the cause of diseases classified elsewhere Category: Medical Plan: Augmentin b.i.d. times 10 days ordered Patient to follow up in 2 weeks, if tonsillar enlargement persist-will refer the patient to ENT (2) Rash: Code(s): R21 - Rash and other nonspecific skin eruption Category: Medical Plan: Hydrocortisone 2.5% topical b.i.d. p.r.n. ordered (3) Chronic migraine without aura: Code(s): G43.709 - Chronic migraine without aura, not intractable, without status migrainosus Category: Medical Qualifiers: Status migrainosus presence: without status migrainosus Intractability: intractable Qualified Code(s): G43.719 - Chronic migraine without aura, intractable, without status migrainosus Plan: Fioricet refilled Follow up with neurology as scheduled (4) Lipoma: Code(s): D17.9 - Benign lipomatous neoplasm, unspecified Category: Medical Qualifiers: Lipoma location: neck Qualified Code(s): D17.0 - Benign lipomatous neoplasm of skin and subcutaneous tissue of head, face and neck Plan: Posterior neck lump, consistent with lipoma. Patient reports that she has an upcoming ultrasound to area Medications: New amoxicillin-pot clavulanate 875-125 mg 1 tab PO BID 10 days 20 tabs 0RF hydrocortisone 2.5% 1 appl topical BID PRN 30 grams 1RF rash R21 - Rash and other nonspecific skin eruption Refilled tsjjyfhgnn-vjggkoizgnooo-otxl 50-325-40 mg 1 tab PO Q6-8H 30 days PRN 30 tabs 1RF headaches ajcscojkqd-jmmyvfwaywwqi-imgm 50-325-40 mg 1 tab PO Q6-8H 30 days PRN 90 tabs 1RF headaches laqhxxhbhv-frdtvquuizxde-jdye 50-325-40 mg 1 tab PO Q6-8H 30 days PRN 30 tabs 1RF headaches
[2024-08-01 16:01] VITALS: BP 116/72; PULSE 96; TEMP 37.2; O2SAT 96; BMI 58.9
--- OUTSIDE RECORDS SUMMARY | 2024-08-01 19:29 | XMS_ITS | Clinical Summary ---
Author Organization [facility] Address [address] [place] [address] Phone Care Team Providers Care Finance Specialist Name Role Phone Patsy Narayanan MD Primary Care Provider Unavail able Allergies Active Allergy Reactions Criticality Noted Date Comments Morphine Swelling High 11/18/2017 Shellfish Derived Hives 05/30/2024 Encounters Date Type Department Care Team Description 05/30/2024 5:56 AM EST - 05/30/2024 6:54 AM EST Emergency [facility] Emergency [address] [place] [phone] Max Daniels MD Muscle spasm (Primary Dx) Discharge Disposition: Home or Self Care from Last 3 Months Surgical History Surgery Date Site/Laterality Comments THYROIDECTOMY CHOLECYSTECTOMY SECTION Medical History Medical History Date Comments Multiple sclerosis (CMS/HCC) Thyroid cancer ([facility]/HCC) Lymphoma ([facility]/HCC) Social History Tobacco Use Types Packs/Day Years Used Date Smoking Tobacco: Former Cigarettes Smokeless Tobacco: Never Tobacco Cessation:Counseling Given: Not Answered Alcohol Use Standard Drinks/Week Comments Never 0 (1 standard drink = 0.6 oz pur e alcohol) Comments Unknown Sex and Gender Information Value Date Recorded Sex Assigned at Female 07/09/2024 12:12 PM EST Legal Sex Female 9:43 AM EST Gender Identity Female 07/09/2024 12:12 PM [...] AM EST Office Visit Bariatric Surgery - [place] [address] [place] [phone] Christina Yu MD [address] [facility] [address] [place] [address] Health Maintenance Due Date Last Done Comments COVID-19 Vaccine (#1) 1990 Hepatitis A Vaccines (1 of 2 - Risk 2-dose series) 2004 Hepatitis B Vaccines (1 of 3 - 19+ 3-dose series) 2004 Pneumococcal Vaccine: Pediatrics (0 to 5 Years) and At-Risk Patients (6 to 64 Years) (1 of 2 - PCV) 2004 Cervical Cancer Screening: P ap Smear [...] patient's age to complete this topic Meningococcal B Vacine Aged Out No lo nger eligible based on patient's age to complete [...] LAB CHEMISTRY METHOD 05/30/2024 6:31 AM EST [facility] Comment:Certain OTC medicati ons containing ephedrine, phenylephrine, pseudoephedrine and phenylpropanolamine can cause false positive results. Barbiturate Screen, Ur Negative Negative LAB CHEMISTRY METHOD 05/30/2024 6:31 AM [facility] Benzodiazepine Screen, Ur Negative Negative LAB CHEMISTRY METHOD 05/30/2024 6:31 AM [facility] Cocaine Screen, Ur Negative Negative LAB CHEMISTRY METHOD 05/30/2024 6:31 AM [facility] Opiate Screen, Ur Negative Negative LAB CHEMISTRY METHOD 05/30/2024 6:31 AM [facility] Cannabinoid (THC) Screen, Ur Negative Negative LAB CHEMISTRY METHOD 05/30/2024 6:31 AM [facility] Comment:Specimens from patie nts taking pantoprazole sodium (Protonix) have been shown to produce false positive results. Oxycodone Screen, Ur Negative Negative LAB CHEMISTRY METHOD 05/30/2024 6:31 AM [facility] Fentanyl, Ur Negative Negative LAB CHEMISTRY METHOD 05/30/2024 6:31 AM [facility] Urine Urine specimen obtained by clean catch procedure / Unknown Non-blood Collection / Unknown 05/30/2024 5:58 AM EST 05/30/2024 6:07 AM EST [facility] - 05/30/2024 6:31 AM EST [...] ONLY* Max Daniels MD LAB URINE ORDERABLES Final Resu lt Performing Organization Address [facility]/ZIP Co de Phone Number [facility] [address] [place] [address], [place] [phone] * Buprenorphine screen, urine (05/30/2024 5:58 AM EST) Buprenorphine Screen Urine Negative Negative LAB CHEMISTRY METHOD 05/30/2024 6:31 AM EST [facility] Urine Urine specimen obtained by clean catch procedure / Unknown Non-blood Collection / Unknown 05/30/2024 5:58 AM EST 05/30/2024 6:07 AM EST Narrative [facility] - 05/30/2024 6:31 AM EST Assay cutoff 5 ng/mL Semi-quantitative assay for screening purposes only. Unconfirmed screening result should not be used for non-medical purposes. *ALTERNATE METHOD CONFIRMATION DONE UPON REQUEST ONLY* Max Daniels MD LAB URINE ORDERABLES Final Resu lt Performing Organization Address [facility] de Phone Number [facility] [address] [place] [address], [place] [phone] * Methadone, urine (05/30/2024 5:58 AM EST) Pathologist [facility] Methadone Screen, Urine Negative Negative LAB CHEMISTRY METHOD 05/30/2024 6:31 AM EST [facility] Comment: Assay cutoff 300 ng/mL Semi-quantitative assay for screening purposes only. Unconfirmed screening result should not be used for non-medical purposes. *ALTERNATE METHOD CONFIRMATION DONE UPON REQUEST ONLY* Urine Urine specimen obtained by clean catch procedure / Unknown Non-blood Collection / Unknown 05/30/2024 5:58 AM EST 05/30/2024 6:07 AM EST Max Daniels MD LAB URINE ORDERABLES Final Resu lt Performing Organization Address City/[facility]/ZIP Co de Phone Number [facility] [address] [place] [address], [place] [phone] * Phencyclidine, urine (05/30/2024 5:58 AM EST) Pathologist [facility] PCP Scrn, Ur Negative Negative LAB CHEMISTRY METHOD 05/30/2024 6:31 AM [facility] Comment: Assay cutoff 25 ng/mL Semi-quantitative assay for screening purposes only. Unconfirmed screening result should not be used for non-medical purposes. *ALTERNATE METHOD CONFIRMATION DONE UPON REQUEST ONLY* Urine Urine specimen obtained by clean catch procedure / Unknown Non-blood Collection / Unknown 05/30/2024 5:58 AM EST 05/30/2024 6:07 AM EST Max Daniels MD LAB URINE ORDERABLES Final Resu lt [facility] [address] [place] [address], [place] [phone] * (ABNORMAL) CBC auto differential (05/30/2024 5:52 AM EST) [facility] WBC 13.1(H) 4.8 - 10.8 K/mcL LAB HEMETOLOGY METHOD 05/30/2024 6:13 AM [facility] RBC 4.50 3.80 - 4.80 M/mcL LAB HEMETOLOGY METHOD 05/30/2024 6:13 AM [facility] Hemoglobin 11.6 11.5 - 16.0 g/dL LAB HEMETOLOGY METHOD 05/30/2024 6:13 AM [facility] Hematocrit 37.9 35.0 - 47.0 % LAB HEMETOLOGY METHOD 05/30/2024 6:13 AM [facility] MCV 85.2 79.0 - 98.0 FL LAB HEMETOLOGY METHOD 05/30/2024 6:13 AM [facility] MCH 26.1(L) 27.0 - 32.0 pcg LAB HEMETOLOGY METHOD 05/30/2024 6:13 AM [facility] MCHC 30.6(L) 32.0 - 37.0 g/dL LAB HEMETOLOGY METHOD 05/30/2024 6:13 AM [facility] RDW 16.3(H) 11.0 - 15.0 % LAB HEMETOLOGY METHOD 05/30/2024 6:13 AM [facility] Platelets 435(H) 130 - 400 K/mcL LAB HEMETOLOGY METHOD 05/30/2024 6:13 AM [facility] MPV 9.1 7.0 - 11.0 FL LAB HEMETOLOGY METHOD 05/30/2024 6:13 AM [facility] NRBC 0.0 <1.0 % LAB HEMETOLOGY METHOD 05/30/2024 6:13 AM [facility] NRBC Absolute 0.00 <0.10 K/mcL LAB HEMETOLOGY METHOD 05/30/2024 6:13 AM [facility] Neutrophils Relative 51.2 % LAB HEMETOLOGY METHOD 05/30/2024 6:13 AM [facility] Lymphocytes Relative 34.7 % LAB HEMETOLOGY METHOD 05/30/2024 6:13 AM [facility] Monocytes Relative 7.3 % LAB HEMETOLOGY METHOD 05/30/2024 6:13 AM [facility] Eosinophils Relative 5.4 % LAB HEMETOLOGY METHOD 05/30/2024 6:13 AM [facility] Basophils Relative 0.6 % LAB HEMETOLOGY METHOD 05/30/2024 6:13 AM [facility] Immature Granulocytes Relative 0.8 % LAB HEMETOLOGY METHOD 05/30/2024 6:13 AM [facility] Neutrophils Absolute 6.71 1.50 - 7.00 K/mcL LAB HEMETOLOGY METHOD 05/30/2024 6:13 AM EST [facility] Lymphocytes Absolute 4.53 1.00 - 5.00 K/[facility] LAB HEMETOLOGY METHOD 05/30/2024 6:13 AM EST [facility] Monocytes Absolute 0.95 0.20 - 1.00 K/[facility] LAB HEMETOLOGY METHOD 05/30/2024 6:13 AM EST [facility] Eosinophils Absolute 0.70(H) 0.00 - 0.50 K/[facility] LAB HEMETOLOGY METHOD 05/30/2024 6:13 AM EST [facility] Basophils Absolute 0.08 0.00 - 0.20 K/[facility] LAB HEMETOLOGY METHOD 05/30/2024 6:13 AM EST [facility] Immature Granulocytes Absolute 0.10(H) 0.00 - 0.03 K/[facility] LAB HEMETOLOGY METHOD 05/30/2024 6:13 AM EST [facility] Blood Venous blood specimen / Unknown Venipuncture / Unknown 05/30/2024 5:52 AM EST 05/30/2024 6:06 AM EST us Max Daniels MD LAB BLOOD ORDERABLES Final Resu lt Performing Organization Address [facility]/State/ZIP Co de Phone Number [facility] [address] [place] [address], * Magnesium (05/30/2024 5:52 AM EST) Magnesium 2.2 1.9 - 2.6 mg/dL LAB CHEMISTRY METHOD 05/30/2024 6:26 AM EST [facility] Blood Venous blood specimen / Unknown Venipuncture / Unknown 05/30/2024 5:52 AM EST 05/30/2024 6:07 AM EST us Max Daniels MD LAB BLOOD ORDERABLES Final Resu lt Performing Organization Address City/[facility]/ZIP Co de Phone Number [facility] [address] [place] [address], * (ABNORMAL) Ethanol (05/30/2024 5:52 AM EST) Ethanol Level 298(H) 0 - 10 mg/dL LAB CHEMISTRY METHOD 05/30/2024 6:50 AM EST [facility] Blood Venous blood specimen / Unknown Venipuncture / Unknown 05/30/2024 5:52 AM EST 05/30/2024 6:07 AM EST us Max Daniels MD LAB BLOOD ORDERABLES Final Resu lt Performing Organization Address [facility]/ZIP Co de Phone Number [facility] [address] [place] [address], * (ABNORMAL) Acetaminophen level (05/30/2024 5:52 AM EST) Acetaminophen Level <2.0(L) 10.0 - 30.0 mcg/mL LAB CHEMISTRY METHOD 05/30/2024 6:51 AM EST [facility] Blood Venous blood specimen / Unknown Venipuncture / Unknown 05/30/2024 5:52 AM EST 05/30/2024 6:07 AM EST us Max Daniels MD LAB BLOOD ORDERABLES Final Resu lt [facility] [address] [place] [address], [place] [phone] * (ABNORMAL) Salicylate level (05/30/2024 5:52 AM EST) Salicylate Level <1.7(L) 2.0 - 29.0 mg/dL LAB CHEMISTRY METHOD 05/30/2024 6:50 AM EST [facility] Blood Venous blood specimen / Unknown Venipuncture / Unknown 05/30/2024 5:52 AM EST 05/30/2024 6:07 AM EST us Max Daniels MD LAB BLOOD ORDERABLES Final Resu lt [facility] [address] [place] [address], [place] [phone] * (ABNORMAL) Basic metabolic panel (05/30/2024 5:52 AM EST) Sodium 134 133 - 145 mmol/L LAB CHEMISTRY METHOD 05/30/2024 6:26 AM [facility] Potassium 4.2 3.5 - 5.5 mmol/L LAB CHEMISTRY METHOD 05/30/2024 6:26 AM [facility] Chloride 103 96 - 110 mmol/L LAB CHEMISTRY METHOD 05/30/2024 6:26 AM [facility] CO2 20(L) 21 - 32 mmol/L LAB CHEMISTRY METHOD 05/30/2024 6:26 AM [facility] Anion Gap 11 3 - 11 LAB CHEMISTRY METHOD 05/30/2024 6:26 AM [facility] Glucose 113(H) 70 - 100 mg/dL LAB CHEMISTRY METHOD 05/30/2024 6:26 AM [facility] BUN 10 5 - 25 mg/dL LAB CHEMISTRY METHOD 05/30/2024 6:26 AM [facility] Creatinine 1.07 0.50 - 1.10 mg/dL LAB CHEMISTRY METHOD 05/30/2024 6:26 AM [facility] eGFR 68 >=60 mL/min/1. 73m2 LAB CHEMISTRY METHOD 05/30/2024 6:26 AM [facility] Comment:Calculation based on the??Chronic Kidney Disease Epidemiology Collaboration (CKD-EPI) equation refit??without adjustment for race. BUN/Creatinine Ratio 9.3 LAB CHEMISTRY METHOD 05/30/2024 6:26 AM EST [facility] Calcium 8.8 8.5 - 10.5 mg/dL LAB CHEMISTRY METHOD 05/30/2024 6:26 AM EST [facility] Blood Venous blood specimen / Unknown Venipuncture / Unknown 05/30/2024 5:52 AM EST 05/30/2024 6:07 AM EST Max Daniels MD LAB BLOOD ORDERABLES Final Resu lt [facility] [address] [place] [address], from Last 3 Months Insurance PLAN Care Teams Finance Specialist Relationship Specialty Start Date End Date Patsy Narayanan MD PCP - General Internal Medicine 11/17/17
== END 2024-08-01 17:06 | disposition home or self-care (01) ==
PROVIDERS: PCP Internal Medicine
DX: J03.80 Acute tonsillitis due to other specified organisms (principal); B96.89 Other specified bacterial agents as the cause of diseases classified elsewhere; R21 Rash and other nonspecific skin eruption; G43.719 Chronic migraine without aura, intractable, without status migrainosus; D17.0 Benign lipomatous neoplasm of skin and subcutaneous tissue of head, face and neck

== ENCOUNTER → 2024-08-01 15:56 | Outpatient (BNVA) | payer OTHER, SELFPAY | PROVIDERS: PCP Internal Medicine | DX: R21 Rash and other nonspecific skin eruption (principal); J03.80 Acute tonsillitis due to other specified organisms; B96.89 Other specified bacterial agents as the cause of diseases classified elsewhere; D17.0 Benign lipomatous neoplasm of skin and subcutaneous tissue of head, face and neck; G43.719 Chronic migraine without aura, intractable, without status migrainosus | CPT/HCPCS: 99212 ==

== ENCOUNTER 2024-08-06 13:54 | Outpatient (REF) | payer OTHER, SELFPAY ==
--- NOTE | ~2024-08-06 | US_ITS ---
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 Ultrasound soft tissue neck Comparison: 07/07/2023 Findings: Ultrasound evaluation was performed of the right posterolateral neck soft tissues in an area of palpable concern. There is no mass or fluid collection. There are no visualized lymph nodes. Impression: 1. No obvious abnormality. This document has been electronically signed by: Maira Leon MD on 08/07/2024 15:23:43
--- OUTSIDE RECORDS SUMMARY | 2024-08-06 16:27 | XMS_ITS | Clinical Summary ---
Author Organization [facility] Address [address] [place] [address] Phone Care Team Providers Care Nut Sorter Name Role Phone aPtsy Narayanan MD Primary Care Provider Unavail able Allergies Active Allergy Reactions Criticality Noted Date Comments Morphine Swelling High 11/18/2017 Shellfish Derived Hives 05/30/2024 Encounters Date Type Department Care Team Description 05/30/2024 5:56 AM EST - 05/30/2024 6:54 AM EST Emergency [facility] Emergency [address] [place] [phone] Max Daniels MD Muscle spasm (Primary Dx) Discharge Disposition: Home or Self Care from Last 3 Months Surgical History Surgery Date Site/Laterality Comments THYROIDECTOMY CHOLECYSTECTOMY SECTION Medical History Medical History Date Comments Multiple sclerosis (CMS/HCC) Thyroid cancer ([facility]/HCC) Lymphoma ([facility]/HCC) Social History Tobacco Use Types Packs/Day [...] Care Team (Late st Contact Info) Description 08/16/2024 1:30 PM EDT Office Visit Bariatric Surgery - [place] [address] [place] [address] Christina Yu MD [address] [facility] [address] [place] [address] Health Maintenance Due Date Last Done Comments [...] LAB CHEMISTRY METHOD 05/30/2024 6:31 AM EST [facility] Comment:Certain OTC medicati ons containing ephedrine, phenylephrine, pseudoephedrine and phenylpropanolamine can cause false positive results. Barbiturate Screen, Ur Negative Negative LAB CHEMISTRY METHOD 05/30/2024 6:31 AM [facility] Benzodiazepine Screen, Ur Negative Negative LAB CHEMISTRY METHOD 05/30/2024 6:31 AM [facility] Cocaine Screen, Ur Negative Negative LAB CHEMISTRY METHOD 05/30/2024 6:31 AM [facility] Opiate Screen, Ur Negative Negative LAB CHEMISTRY METHOD 05/30/2024 6:31 AM [facility] Cannabinoid (THC) Screen, Ur Negative Negative LAB CHEMISTRY METHOD 05/30/2024 6:31 AM [facility] Comment:Specimens from patie nts taking pantoprazole sodium (Protonix) have been shown to produce false positive results. Oxycodone Screen, Ur Negative Negative LAB CHEMISTRY METHOD 05/30/2024 6:31 AM [facility] Fentanyl, Ur Negative Negative LAB CHEMISTRY METHOD 05/30/2024 6:31 AM [facility] Urine Urine specimen obtained by clean catch procedure / Unknown Non-blood Collection / Unknown 05/30/2024 5:58 AM EST 05/30/2024 6:07 AM EST [facility] - 05/30/2024 6:31 AM EST Assay cutoffs: Amphetamines ? 1000 ng/mL Barbiturates ?200 ng/mL Benzodiazepines ?? 200 ng/mL Cocaine ? 300 ng/mL Fentanyl ?1 ng/mL Opiates ? 300 ng/mL Oxycodone ? 100 ng/mL THC ?50 ng/mL Semi-quantitative assay for screening purposes only. Unconfirmed screening result should not be used for non-medical purposes. *ALTERNATE METHOD CONFIRMATION DONE UPON REQUEST ONLY* us Max Daniels MD LAB URINE ORDERABLES Final Resu lt Performing Organization Address [facility] Co de Phone Number [facility] [address] [place] [address], [place] [phone] * Buprenorphine screen, urine (05/30/2024 5:58 AM [...] *ALTERNATE METHOD CONFIRMATION DONE UPON REQUEST ONLY* us Max Daniels MD LAB URINE ORDERABLES Final Resu lt Performing Organization Address [facility] de Phone Number [facility] [address] [place] [address], [place] [phone] * Methadone, urine (05/30/2024 5:58 AM EST) Pathologist [facility] Methadone Screen, Urine Negative Negative LAB CHEMISTRY [...] ORDERABLES Final Resu lt Performing Organization Address City/[facility]/ZIP Co de Phone Number [facility] [address] [place] [address], * Phencyclidine, urine (05/30/2024 5:58 AM EST) PCP Scrn, Ur Negative Negative LAB CHEMISTRY METHOD 05/30/2024 6:31 AM EST [facility] Comment: Assay cutoff 25 ng/mL Semi-quantitative assay for screening purposes only. Unconfirmed screening result should not be used for non-medical purposes. *ALTERNATE METHOD CONFIRMATION DONE UPON REQUEST ONLY* Urine Urine specimen obtained by clean catch procedure / Unknown Non-blood Collection / Unknown 05/30/2024 5:58 AM EST 05/30/2024 6:07 AM EST us Max Daniels MD LAB URINE ORDERABLES Final Resu lt [facility] [address] [place] [address], * (ABNORMAL) CBC auto differential (05/30/2024 5:52 AM EST) Pathologist [facility] WBC 13.1(H) 4.8 - 10.8 K/mcL LAB HEMETOLOGY METHOD 05/30/2024 6:13 AM [facility] RBC 4.50 3.80 - 4.80 M/mcL LAB HEMETOLOGY METHOD 05/30/2024 6:13 AM [facility] Hemoglobin 11.6 11.5 - 16.0 g/dL LAB HEMETOLOGY METHOD 05/30/2024 6:13 AM [facility] Hematocrit 37.9 35.0 - 47.0 % LAB HEMETOLOGY METHOD 05/30/2024 6:13 AM [facility] MCV 85.2 79.0 - 98.0 FL LAB HEMETOLOGY METHOD 05/30/2024 6:13 AM [facility] MCH 26.1(L) 27.0 - 32.0 pcg LAB HEMETOLOGY METHOD 05/30/2024 6:13 AM [facility] MCHC 30.6(L) 32.0 - 37.0 g/dL LAB HEMETOLOGY METHOD 05/30/2024 6:13 AM [facility] RDW 16.3(H) 11.0 - 15.0 % LAB HEMETOLOGY METHOD 05/30/2024 6:13 AM [facility] Platelets 435(H) 130 - 400 K/mcL LAB HEMETOLOGY METHOD 05/30/2024 6:13 AM [facility] MPV 9.1 7.0 - 11.0 FL LAB HEMETOLOGY METHOD 05/30/2024 6:13 AM [facility] NRBC 0.0 <1.0 % LAB HEMETOLOGY METHOD 05/30/2024 6:13 AM [facility] NRBC Absolute 0.00 <0.10 K/mcL LAB HEMETOLOGY METHOD 05/30/2024 6:13 AM [facility] Neutrophils Relative 51.2 % LAB HEMETOLOGY METHOD 05/30/2024 6:13 AM [facility] Lymphocytes Relative 34.7 % LAB HEMETOLOGY METHOD 05/30/2024 6:13 AM [facility] Monocytes Relative 7.3 % LAB HEMETOLOGY METHOD 05/30/2024 6:13 AM [facility] Eosinophils Relative 5.4 % LAB HEMETOLOGY METHOD 05/30/2024 6:13 AM [facility] Basophils Relative 0.6 % LAB HEMETOLOGY METHOD 05/30/2024 6:13 AM [facility] Immature Granulocytes Relative 0.8 % LAB HEMETOLOGY METHOD 05/30/2024 6:13 AM [facility] Neutrophils Absolute 6.71 1.50 - 7.00 K/[facility] LAB HEMETOLOGY METHOD 05/30/2024 6:13 AM EST [facility] Lymphocytes Absolute 4.53 1.00 - 5.00 K/mcL LAB HEMETOLOGY METHOD 05/30/2024 6:13 AM EST [facility] Monocytes Absolute 0.95 0.20 - 1.00 K/[facility] LAB HEMETOLOGY METHOD 05/30/2024 6:13 AM EST [facility] Eosinophils Absolute 0.70(H) 0.00 - 0.50 K/[facility] HEMETOLOGY METHOD 05/30/2024 6:13 AM EST [facility] Basophils Absolute 0.08 0.00 - 0.20 K/[facility] HEMETOLOGY METHOD 05/30/2024 6:13 AM EST [facility] Immature Granulocytes Absolute 0.10(H) 0.00 - 0.03 K/[facility] HEMETOLOGY METHOD 05/30/2024 6:13 AM EST [facility] Blood Venous blood specimen / Unknown Venipuncture / Unknown 05/30/2024 5:52 AM EST 05/30/2024 6:06 AM EST us Max Daniels MD LAB BLOOD ORDERABLES Final Resu lt [facility] [address] [place] [address], * Magnesium (05/30/2024 5:52 AM EST) Magnesium 2.2 1.9 - 2.6 mg/dL LAB CHEMISTRY METHOD 05/30/2024 6:26 AM EST [facility] Blood Venous blood specimen / Unknown Venipuncture / Unknown 05/30/2024 5:52 AM EST 05/30/2024 6:07 AM EST us Max Daniels MD LAB BLOOD ORDERABLES Final Resu lt Performing Organization Address [facility]/ZIP Co de Phone Number [facility] [address] [place] [address], * (ABNORMAL) Ethanol (05/30/2024 5:52 AM EST) Ethanol Level 298(H) 0 - 10 mg/dL LAB CHEMISTRY METHOD 05/30/2024 6:50 AM EST [facility] Blood Venous blood specimen / Unknown Venipuncture / Unknown 05/30/2024 5:52 AM EST 05/30/2024 6:07 AM EST us Max Daniels MD LAB BLOOD ORDERABLES Final Resu lt Performing Organization Address [facility] Co de Phone Number [facility] [address] [place] [address], * (ABNORMAL) Acetaminophen level (05/30/2024 5:52 AM EST) Acetaminophen Level <2.0(L) 10.0 - 30.0 mcg/mL LAB CHEMISTRY METHOD 05/30/2024 6:51 AM EST [facility] Blood Venous blood specimen / Unknown Venipuncture / Unknown 05/30/2024 5:52 AM EST 05/30/2024 6:07 AM EST us Max Daniels MD LAB BLOOD ORDERABLES Final Resu lt Performing Organization Address City/[facility]/ZIP Co de Phone Number [facility] [address] [place] [address], * (ABNORMAL) Salicylate level (05/30/2024 5:52 AM EST) Salicylate Level <1.7(L) 2.0 - 29.0 mg/dL LAB CHEMISTRY METHOD 05/30/2024 6:50 AM EST [facility] Blood Venous blood specimen / Unknown Venipuncture / Unknown 05/30/2024 5:52 AM EST 05/30/2024 6:07 AM EST us Max Daniels MD LAB BLOOD ORDERABLES Final Resu lt [facility] [address] [place] [address], [place] [phone] * (ABNORMAL) Basic metabolic panel (05/30/2024 5:52 AM EST) Sodium 134 133 - 145 mmol/L LAB CHEMISTRY METHOD 05/30/2024 6:26 AM [facility] Potassium 4.2 3.5 - 5.5 mmol/L LAB CHEMISTRY METHOD 05/30/2024 6:26 AM [facility] Chloride 103 96 - 110 mmol/L LAB CHEMISTRY METHOD 05/30/2024 6:26 AM [facility] CO2 20(L) 21 - 32 mmol/L LAB CHEMISTRY METHOD 05/30/2024 6:26 AM [facility] Anion Gap 11 3 - 11 LAB CHEMISTRY METHOD 05/30/2024 6:26 AM [facility] Glucose 113(H) 70 - 100 mg/dL LAB CHEMISTRY METHOD 05/30/2024 6:26 AM [facility] BUN 10 5 - 25 mg/dL LAB CHEMISTRY METHOD 05/30/2024 6:26 AM [facility] Creatinine 1.07 0.50 - 1.10 mg/dL LAB CHEMISTRY METHOD 05/30/2024 6:26 AM [facility] eGFR 68 >=60 mL/min/1. 73m2 LAB CHEMISTRY METHOD 05/30/2024 6:26 AM [facility] Comment:Calculation based on the??Chronic Kidney Disease Epidemiology Collaboration (CKD-EPI) equation refit??without adjustment for race. BUN/Creatinine Ratio 9.3 LAB CHEMISTRY METHOD 05/30/2024 6:26 AM EST [facility] Calcium 8.8 8.5 - 10.5 mg/dL LAB CHEMISTRY METHOD 05/30/2024 6:26 AM EST [facility] Blood Venous blood specimen / Unknown Venipuncture / Unknown 05/30/2024 5:52 AM EST 05/30/2024 6:07 AM EST Max Daniels MD LAB BLOOD ORDERABLES Final Resu lt [facility] ([facility]) [facility] [address] [place] [address], from Last 3 Months Insurance [employer] Care Teams Nut Sorter Relationship Specialty Start Date End Date Patsy Narayanan MD PCP - General Internal Medicine 11/17/17
== END 2024-08-06 13:55 | disposition home or self-care (01) ==
LOC: HO.US 13:54
PROVIDERS: PCP Internal Medicine; Visit Provider Surgery
DX: D17.0 Benign lipomatous neoplasm of skin and subcutaneous tissue of head, face and neck (principal)
CPT/HCPCS: 76536

== ENCOUNTER → 2024-08-06 13:55 | Outpatient (BNV) | payer OTHER, SELFPAY | PROVIDERS: PCP Internal Medicine; Visit Provider Radiology Diagnostic Radiology | DX: R22.1 Localized swelling, mass and lump, neck (principal) | CPT/HCPCS: 76536 ==

== ENCOUNTER 2024-08-08 08:45 | Outpatient (AMB) | payer OTHER, SELFPAY ==
[2024-08-08 08:49] VITALS: PULSE 94; O2SAT 98; BMI 59.8
--- NOTE | 2024-08-08 08:49 | MHC.OFFVIS ---
Vital Signs 08/08/24 08:49 Height 5 ft 2 in Weight 327 lb 4 oz BMI 59.8 Pulse 94 Pulse Source Pulse Oximeter Pulse Oximetry (%) 98 Oxygen Delivery Method Room Air Intake Visit Reasons: Follow up 1mo Intake Note: Patient presents for 1 month follow up. MRI on file and done on 07/18/24. Allergies morphine [MORPHINE] Allergy (Intermediate, Verified 08/08/24 08:53) WBC ELEVATED/ N/V shellfish derived [SHELLFISH DERIVED] Allergy (Intermediate, Verified 08/08/24 08:53) HIVES iodine [IODINE] Allergy (Mild, Verified 08/08/24 08:53) RASH duloxetine Adverse Reaction (Intermediate, Verified 08/08/24 08:53) vomiting HPI Comments Details: 39 y/o female comes here for follow up and evaluation of migraines, muscle spasm , cognitive issues and sleep apnea. The PSG sleep study result was mid degree of sleep apnea with increased severity in REM sleep. The AHI was 17/hr, REM AHI was 44/hr and oxygen Richard to 77% She underwent titration study and started CPAP at [id number]. Family history + mom has MS. She sleeps well with CPAP, but wakes up tired. she also reports memory issues for 8 mths and progressing and feels foggy. she forgets she did the dishes, spoke to her mom, 's name and misplaces things etc. Pt reports that her throbbing headaches have improved in frequency or severity. She had 4-5 headache days before, now she has three per week and it lasts about 15 min. She also reports painful muscle spasms, her entire body usually is triggered by movement. She has 1 episode almost everyday and is scheduled to see a supervisor decorating for Fibromyalgia. She is on gabapentin 800 mg QID, and topiramate 50 mg BID, which has not been effective. She was denied Firocet by her insurance and will try to get it again. She wakes up every morning with a migraine and feels like her head is full of air with tight pressure, this lasts for 8 hours, she uses vicks or takes advil, but paint spray tender headaches. She reports blurry vision and has not had an eye appt in over 20 years, triggers flexion of neck and turning her head to the right. She is starting a new weight management program with [employer]. Reviewed MRI and MISAEL compliance with patient today. Unremarkable noncontrast MRI of the brain. She is going to have a LP procedure in September 2024 at [facility]. [facility] Medical History Anxiety Chronic migraine without aura Cognitive disorder Multiple environmental allergies Morbid obesity with BMI of 60.0-69.9, adult MISAEL (obstructive sleep apnea) GERD (gastroesophageal reflux disease) Anemia Morbid obesity Hypersomnia Loud snoring Blurry vision, bilateral Chronic migraine without aura PTSD (post-traumatic stress disorder) Bipolar depression Depression Morbid obesity with BMI of 45.0-49.9, adult Migraine Bilateral foot pain Fibromyalgia History of thyroid cancer Smoker Papillary thyroid carcinoma Post-surgical hypothyroidism Bilateral lower extremity edema Elevated LFTs Anxiety Asthma Hypothyroidism Cervical lymphadenopathy Vitamin D deficiency Thyroid cancer Surgical History History of esophagogastroduodenoscopy (EGD) Hx of tubal ligation History of surgery Hx of lymph node biopsy Hx of total thyroidectomy (~05/2020) Hx of section Hx of cholecystectomy Family History Father Diabetes Asthma Hypertension Mother Diabetes Hypertension Multiple sclerosis Daughter No problems noted. Daughter No problems noted. Daughter No problems noted. Daughter Deaf Asthma Daughter Deaf Son No problems noted. Son Asthma Son No problems noted. Other FH: mental illness Social History Household Members: Spouse Housing: Apartment Are you a primary acute care assistant to a significant other at home: No Do you presently have visiting nurse or other home services: No Alcohol intake: current Alcohol intake frequency: holidays/special occasions only Patient Tobacco Use Status: Former Tobacco user Tobacco use type: Cigarette Years Smoked: 20 e-Cigarette/Vaping Use: Former Use Second Hand Smoke Exposure: Yes service: No Current occupational status: unemployed Current occupational exposures/hazards: No Cognitive needs: No Hearing needs: No Vision needs: Yes Female Reproductive History Menstrual Age of Menarche: 12 Physical Exam Vital Signs: Last Vital Signs Pulse 94 08/08/24 08:49 Pulse Ox 98 08/08/24 08:49 Oxygen Delivery Method Room Air 08/08/24 08:49 BMI result Body Mass Index 59.8 Const General: cooperative and no acute distress Nutritional Appearance: obese Orientation/consciousness: patient oriented x3 Eyes Pupils: Equal, round and reactive pupils present Neuro Other: mallampatti grade 4 Mild postural tremors General: patient oriented x3, tone normal and moves all extremities Cranial nerves: Yes Facial sensation intact/muscles of mastication intact, Yes Equal, round and reactive pupils present, Yes Bilaterally intact EOM present, Yes Nystagmus not present and Yes Normal facial strength present Gait exam (Neuro): Antalgic gait present Motor exam (neuro): 5/5 motor strength present throughout and Normal motor muscle tone present throughout Deep tendon reflexes (DTR's): Right triceps reflex intensity grade: 1+, Left triceps reflex intensity grade: 1+, Rt Biceps (C5, C6): 1+, Left biceps reflex intensity grade: 1+, Right brachioradialis reflex intensity grade: 1+, Left brachioradialis reflex intensity grade: 1+, Right patellar reflex intensity grade: 1+ and Left patellar reflex intensity grade: 1+ Coordination: [id number] test normal Results Reviewed Results Reviewed: The CPAP compliance and therapy response (06/11/24-07/10/24) reviewed. The usage days 100% and the average usage hours 8 hrs 39 min. The AHI was 0.6/hr. MRI Findings: Ultrasound evaluation was performed of the right posterolateral neck soft tissues in an area of palpable concern. There is no mass or fluid collection. There are no visualized lymph nodes. Impression: 1. No obvious abnormality. MR/MR head/brain wo con IMPRESSION: No acute or structural brain abnormality.Mild chronic paranasal sinus disease. Prominence/enlarged palatine tonsils. Inflammatory versus infectious processes should be considered. Lymphoproliferative disorder cannot be excluded. Recommend direct inspection. Assessment & Plan Assessment & Plan (1) Hx of migraines: Code(s): Z86.69 - Personal history of other diseases of the nervous system and sense organs Category: Medical (2) Chronic migraine without aura: Code(s): G43.709 - Chronic migraine without aura, not intractable, without status migrainosus Category: Medical Qualifiers: Intractability: intractable Status migrainosus presence: without status migrainosus Qualified Code(s): G43.719 - Chronic migraine without aura, intractable, without status migrainosus (3) MISAEL (obstructive sleep apnea): Code(s): G47.33 - Obstructive sleep apnea (adult) (pediatric) Category: Medical (4) Cognitive disorder: Code(s): F09 - Unspecified mental disorder due to known physiological condition Category: Medical (5) Dystonia: Code(s): G24.9 - Dystonia, unspecified Category: Medical (6) Anxiety: Code(s): F41.9 - Anxiety disorder, unspecified Category: Medical (7) Irritable mood: Code(s): R45.4 - Irritability and anger Category: Medical (8) GERD (gastroesophageal reflux disease): Code(s): K21.9 - Gastro-esophageal reflux disease without esophagitis Category: Medical Qualifiers: Esophagitis presence: without esophagitis Qualified Code(s): K21.9 - Gastro-esophageal reflux disease without esophagitis (9) Body aches: Code(s): R52 - Pain, unspecified Category: Medical (10) Fatigue: Code(s): R53.83 - Other fatigue Category: Medical (11) Blurry vision, bilateral: Code(s): H53.8 - Other visual disturbances Category: Medical (12) Chronic migraine without aura: Code(s): G43.709 - Chronic migraine without aura, not intractable, without status migrainosus Category: Medical Qualifiers: Status migrainosus presence: without status migrainosus Intractability: not intractable Qualified Code(s): G43.709 - Chronic migraine without aura, not intractable, without status migrainosus (13) Fibromyalgia: Code(s): M79.7 - Fibromyalgia Category: Medical Plan SHe is a very complex patients with multiple medical issues new issues since her last visit . Sleep apnea, CPAP usage and sleep apnea is well controlled. Cognitive decline MMSE was normal, she reports cognitive problems probably due to poorly controlled mood or other metabolic issues. Refer to psychiatry for management of irritable mood. F/u Rheumatology for fibromyalgia and muscle spasms Chronic Headaches Increase Topiaramat from 50mg PO to 100mg PO daily. Resubmit PA for Butalbital Chronic headaches, she may have benign intracranial hypertension, she is scheduled for a LP opening pressure in September 2024, MrI was unremarkable Ophthal eval for eye exam Diamox trialed on 250mg PO BID and no effective, as patient was not aware she was to take this med twice a day, patient education provided. Will trial her on Botox in the future Medications: Changed From topiramate 50 mg PO BEDTIME 30 days 30 tabs 3RF G43.719 - Chronic migraine without aura, intractable, without status migrainosus, Z86.69 - Personal history of other diseases of the nervous system and sense organs To topiramate 100 mg (2 x 50 mg) PO BEDTIME 60 tabs 3RF Chronic Migraines 30 days MDD 100mg G43.719 - Chronic migraine without aura, intractable, without status migrainosus, Z86.69 - Personal history of other diseases of the nervous system and sense organs Refilled acetazolamide 250 mg PO BID 60 tabs 6RF qsjkymkbdf-gqukhunmbkskn-kaml 50-325-40 mg 1 tab PO Q6-8H PRN 30 tabs 1RF headaches 30 days hnewnsedjp-wlxpkacymhcqp-yyil 50-325-40 mg 1 tab PO Q6-8H 30 days PRN 30 tabs 1RF headaches Coding Level of Care Code Est Pt Level 4 (27332) Complex EM visit Add On G2211 Diagnoses Hx of migraines Z86.69 Intractable chronic migraine without aura and without status migrainosus G43.719 Intractability: intractable Status migrainosus presence: without status migrainosus MISAEL (obstructive sleep apnea) G47.33 Cognitive disorder F09 Dystonia G24.9 Anxiety F41.9 Irritable mood R45.4 Gastroesophageal reflux disease without esophagitis K21.9 Esophagitis presence: without esophagitis Body aches R52 Fatigue R53.83 Blurry vision, bilateral H53.8 Fibromyalgia M79.7 Time Spent (min) 45 Comment Worsening pressure in the head
--- OUTSIDE RECORDS SUMMARY | 2024-08-08 09:27 | XMS_ITS | Clinical Summary ---
Author Organization [facility] Address [address] [place] [address] Phone Care Team Providers Care Cafeteria Or Lunchroom Checker Name Role Phone Patsy Narayanan MD Primary Care Provider Unavail able Allergies Active Allergy Reactions Criticality Noted Date Comments Morphine Swelling High 11/18/2017 Shellfish Derived Hives 05/30/2024 Encounters Date Type Department Care Team Description 05/30/2024 5:56 AM EST - 05/30/2024 6:54 AM EST Emergency [facility] Emergency [address] [place] [id number] Max Daniels MD Muscle spasm (Primary Dx) Discharge Disposition: Home or Self Care from Last 3 Months Surgical History Surgery Date Site/Laterality Comments THYROIDECTOMY CHOLECYSTECTOMY SECTION Medical History Medical History Date Comments Multiple sclerosis (CMS/HCC) Thyroid cancer ([facility]/HCC) Lymphoma ([facility]/HCC) Social History Tobacco Use Types Packs/Day Years [...] PM EDT Office Visit Bariatric Surgery - [place] [address] [place] [address] Christina Yu MD [address] [place] [address] Health Maintenance Due Date Last Done Comments [...] Negative LAB CHEMISTRY METHOD 05/30/2024 6:31 AM [facility] Benzodiazepine Screen, Ur Negative Negative LAB CHEMISTRY METHOD 05/30/2024 6:31 AM [facility] Cocaine Screen, Ur Negative Negative LAB CHEMISTRY METHOD 05/30/2024 6:31 AM [facility] Opiate Screen, Ur Negative Negative LAB CHEMISTRY METHOD 05/30/2024 6:31 AM [facility] Cannabinoid (THC) Screen, Ur Negative Negative LAB CHEMISTRY METHOD 05/30/2024 6:31 AM [facility] Comment:Specimens from patie nts taking pantoprazole sodium (Protonix) have been shown to produce false positive results. Oxycodone Screen, Ur Negative Negative LAB CHEMISTRY METHOD 05/30/2024 6:31 AM [facility] Fentanyl, Ur Negative Negative LAB CHEMISTRY METHOD 05/30/2024 6:31 AM [facility] Urine Urine specimen obtained by clean catch procedure / Unknown Non-blood Collection / Unknown 05/30/2024 5:58 AM EST 05/30/2024 6:07 AM EST [facility] - 05/30/2024 6:31 AM EST Assay [...] ORDERABLES Final Resu lt Performing Organization Address [facility] Co de Phone Number [facility] [address] [place] [address], [place] [phone] * Buprenorphine screen, urine (05/30/2024 5:58 AM EST) Buprenorphine Screen Urine Negative Negative LAB CHEMISTRY METHOD 05/30/2024 6:31 AM EST [facility] Urine Urine specimen obtained by clean catch procedure / Unknown Non-blood Collection / Unknown 05/30/2024 5:58 AM EST 05/30/2024 6:07 AM EST Narrative [facility] - 05/30/2024 6:31 AM EST Assay cutoff 5 ng/mL Semi-quantitative assay for screening purposes only. Unconfirmed screening result should not be used for non-medical purposes. *ALTERNATE METHOD CONFIRMATION DONE UPON REQUEST ONLY* us Max Daniels MD LAB URINE ORDERABLES Final Resu lt Performing Organization Address [facility] de Phone Number [facility] [address] [place] [address], [place] [phone] * Methadone, urine (05/30/2024 5:58 AM EST) Pathologist [facility] Methadone Screen, Urine Negative Negative LAB CHEMISTRY METHOD 05/30/2024 6:31 AM EST [facility] Comment: Assay cutoff 300 ng/mL Semi-quantitative assay for screening purposes only. Unconfirmed screening result should not be used for non-medical purposes. *ALTERNATE METHOD CONFIRMATION DONE UPON REQUEST ONLY* Urine Urine specimen obtained by clean catch procedure / Unknown Non-blood Collection / Unknown 05/30/2024 5:58 AM EST 05/30/2024 6:07 AM EST Max Daniels MD LAB URINE ORDERABLES Final Resu lt Performing Organization Address City/[facility]/ZIP Co de Phone Number [facility] [address] [place] [address], * Phencyclidine, urine (05/30/2024 5:58 AM EST) PCP Scrn, Ur Negative Negative LAB CHEMISTRY METHOD 05/30/2024 6:31 AM EST [facility] Comment: Assay cutoff 25 ng/mL Semi-quantitative assay for screening purposes only. Unconfirmed screening result should not be used for non-medical purposes. *ALTERNATE METHOD CONFIRMATION DONE UPON REQUEST ONLY* Urine Urine specimen obtained by clean catch procedure / Unknown Non-blood Collection / Unknown 05/30/2024 5:58 AM EST 05/30/2024 6:07 AM EST us Max Daniels MD LAB URINE ORDERABLES Final Resu lt [facility] [address] [place] [address], * (ABNORMAL) CBC auto differential (05/30/2024 5:52 AM EST) Pathologist [facility] WBC 13.1(H) 4.8 - 10.8 K/mcL LAB HEMETOLOGY METHOD 05/30/2024 6:13 AM [facility] RBC 4.50 3.80 - 4.80 M/mcL LAB HEMETOLOGY METHOD 05/30/2024 6:13 AM [facility] Hemoglobin 11.6 11.5 - 16.0 g/dL LAB HEMETOLOGY METHOD 05/30/2024 6:13 AM [facility] Hematocrit 37.9 35.0 - 47.0 % LAB HEMETOLOGY METHOD 05/30/2024 6:13 AM [facility] MCV 85.2 79.0 - 98.0 FL LAB HEMETOLOGY METHOD 05/30/2024 6:13 AM [facility] MCH 26.1(L) 27.0 - 32.0 pcg LAB HEMETOLOGY METHOD 05/30/2024 6:13 AM [facility] MCHC 30.6(L) 32.0 - 37.0 g/dL LAB HEMETOLOGY METHOD 05/30/2024 6:13 AM [facility] RDW 16.3(H) 11.0 - 15.0 % LAB HEMETOLOGY METHOD 05/30/2024 6:13 AM [facility] Platelets 435(H) 130 - 400 K/mcL LAB HEMETOLOGY METHOD 05/30/2024 6:13 AM [facility] MPV 9.1 7.0 - 11.0 FL LAB HEMETOLOGY METHOD 05/30/2024 6:13 AM [facility] NRBC 0.0 <1.0 % LAB HEMETOLOGY METHOD 05/30/2024 6:13 AM [facility] NRBC Absolute 0.00 <0.10 K/mcL LAB HEMETOLOGY METHOD 05/30/2024 6:13 AM [facility] Neutrophils Relative 51.2 % LAB HEMETOLOGY METHOD 05/30/2024 6:13 AM [facility] Lymphocytes Relative 34.7 % LAB HEMETOLOGY METHOD 05/30/2024 6:13 AM [facility] Monocytes Relative 7.3 % LAB HEMETOLOGY METHOD 05/30/2024 6:13 AM [facility] Eosinophils Relative 5.4 % LAB HEMETOLOGY METHOD 05/30/2024 6:13 AM [facility] Basophils Relative 0.6 % LAB HEMETOLOGY METHOD 05/30/2024 6:13 AM [facility] Immature Granulocytes Relative 0.8 % LAB HEMETOLOGY METHOD 05/30/2024 6:13 AM [facility] Neutrophils Absolute 6.71 1.50 - 7.00 K/[facility] LAB HEMETOLOGY METHOD 05/30/2024 6:13 AM EST [facility] Lymphocytes Absolute 4.53 1.00 - 5.00 K/mcL LAB HEMETOLOGY METHOD 05/30/2024 6:13 AM EST [facility] Monocytes Absolute 0.95 0.20 - 1.00 K/[facility] HEMETOLOGY METHOD 05/30/2024 6:13 AM EST [facility] Eosinophils Absolute 0.70(H) 0.00 - 0.50 K/[facility] HEMETOLOGY METHOD 05/30/2024 6:13 AM EST [facility] Basophils Absolute 0.08 0.00 - 0.20 K/[facility] HEMETOLOGY METHOD 05/30/2024 6:13 AM EST [facility] Immature Granulocytes Absolute 0.10(H) 0.00 - 0.03 K/[facility] HEMETOLOGY METHOD 05/30/2024 6:13 AM EST [facility] Blood Venous blood specimen / Unknown Venipuncture / Unknown 05/30/2024 5:52 AM EST 05/30/2024 6:06 AM EST us Max Daniels MD LAB BLOOD ORDERABLES Final Resu lt [facility] [address] [place] [address], * Magnesium (05/30/2024 5:52 AM EST) Magnesium 2.2 1.9 - 2.6 mg/dL LAB CHEMISTRY METHOD 05/30/2024 6:26 AM EST [facility] Blood Venous blood specimen / Unknown Venipuncture / Unknown 05/30/2024 5:52 AM EST 05/30/2024 6:07 AM EST us Max Daniels MD LAB BLOOD ORDERABLES Final Resu lt Performing Organization Address [facility]/ZIP Co de Phone Number [facility] [address] [place] [address], * (ABNORMAL) Ethanol (05/30/2024 5:52 AM EST) Ethanol Level 298(H) 0 - 10 mg/dL LAB CHEMISTRY METHOD 05/30/2024 6:50 AM EST [facility] Blood Venous blood specimen / Unknown Venipuncture / Unknown 05/30/2024 5:52 AM EST 05/30/2024 6:07 AM EST us Max Daniels MD LAB BLOOD ORDERABLES Final Resu lt Performing Organization Address [facility] Co de Phone Number [facility] [address] [place] [address], * (ABNORMAL) Acetaminophen level (05/30/2024 5:52 AM EST) Acetaminophen Level <2.0(L) 10.0 - 30.0 mcg/mL LAB CHEMISTRY METHOD 05/30/2024 6:51 AM EST [facility] Blood Venous blood specimen / Unknown Venipuncture / Unknown 05/30/2024 5:52 AM EST 05/30/2024 6:07 AM EST us Max Daniels MD LAB BLOOD ORDERABLES Final Resu lt Performing Organization Address City/[facility]/ZIP Co de Phone Number [facility] [address] [place] [address], * (ABNORMAL) Salicylate level (05/30/2024 5:52 AM EST) Salicylate Level <1.7(L) 2.0 - 29.0 mg/dL LAB CHEMISTRY METHOD 05/30/2024 6:50 AM EST [facility] Blood Venous blood specimen / Unknown Venipuncture / Unknown 05/30/2024 5:52 AM EST 05/30/2024 6:07 AM EST us Max Daniels MD LAB BLOOD ORDERABLES Final Resu lt [facility] [address] [place] [address], [place] [phone] * (ABNORMAL) Basic metabolic panel (05/30/2024 5:52 AM EST) Sodium 134 133 - 145 mmol/L LAB CHEMISTRY METHOD 05/30/2024 6:26 AM [facility] Potassium 4.2 3.5 - 5.5 mmol/L LAB CHEMISTRY METHOD 05/30/2024 6:26 AM [facility] Chloride 103 96 - 110 mmol/L LAB CHEMISTRY METHOD 05/30/2024 6:26 AM [facility] CO2 20(L) 21 - 32 mmol/L LAB CHEMISTRY METHOD 05/30/2024 6:26 AM [facility] Anion Gap 11 3 - 11 LAB CHEMISTRY METHOD 05/30/2024 6:26 AM [facility] Glucose 113(H) 70 - 100 mg/dL LAB CHEMISTRY METHOD 05/30/2024 6:26 AM [facility] BUN 10 5 - 25 mg/dL LAB CHEMISTRY METHOD 05/30/2024 6:26 AM [facility] Creatinine 1.07 0.50 - 1.10 mg/dL LAB CHEMISTRY METHOD 05/30/2024 6:26 AM [facility] eGFR 68 >=60 mL/min/1. 73m2 LAB CHEMISTRY METHOD 05/30/2024 6:26 AM [facility] Comment:Calculation based on the??Chronic Kidney Disease Epidemiology Collaboration (CKD-EPI) equation refit??without adjustment for race. BUN/Creatinine Ratio 9.3 LAB CHEMISTRY METHOD 05/30/2024 6:26 AM EST [facility] Calcium 8.8 8.5 - 10.5 mg/dL LAB CHEMISTRY METHOD 05/30/2024 6:26 AM EST [facility] Blood Venous blood specimen / Unknown Venipuncture / Unknown 05/30/2024 5:52 AM EST 05/30/2024 6:07 AM EST Max Daniels MD LAB BLOOD ORDERABLES Final Resu lt [facility] [address] [place] [address], from Last 3 Months Insurance [facility] [employer] Care Teams Cafeteria Or Lunchroom Checker Relationship Specialty Start Date End Date Patsy Narayanan MD PCP - General Internal Medicine 11/17/17
== END 2024-08-08 10:04 | disposition home or self-care (01) ==
PROVIDERS: PCP Internal Medicine; Visit Provider Physician Assistant Medical
DX: G43.719 Chronic migraine without aura, intractable, without status migrainosus (principal); G47.33 Obstructive sleep apnea (adult) (pediatric); R41.89 Other symptoms and signs involving cognitive functions and awareness; Z86.69 Personal history of other diseases of the nervous system and sense organs; G24.9 Dystonia, unspecified; F41.9 Anxiety disorder, unspecified; R45.4 Irritability and anger; K21.9 Gastro-esophageal reflux disease without esophagitis; R52 Pain, unspecified; R53.83 Other fatigue; H53.8 Other visual disturbances; M79.7 Fibromyalgia; G43.709 Chronic migraine without aura, not intractable, without status migrainosus
CPT/HCPCS: 99214; G2211

== ENCOUNTER → 2024-08-08 08:45 | Outpatient (BNVA) | payer OTHER, SELFPAY | PROVIDERS: PCP Internal Medicine; Visit Provider Physician Assistant Medical | DX: G43.719 Chronic migraine without aura, intractable, without status migrainosus (principal); H53.8 Other visual disturbances; G47.33 Obstructive sleep apnea (adult) (pediatric); F09 Unspecified mental disorder due to known physiological condition; G24.9 Dystonia, unspecified; F41.9 Anxiety disorder, unspecified; R45.4 Irritability and anger; K21.9 Gastro-esophageal reflux disease without esophagitis; R52 Pain, unspecified; R53.83 Other fatigue; M79.7 Fibromyalgia; Z86.69 Personal history of other diseases of the nervous system and sense organs | CPT/HCPCS: 99212 ==

== ENCOUNTER 2024-08-23 13:02 | Outpatient (AMB) | payer OTHER, SELFPAY ==
--- NOTE | 2024-08-23 13:07 | MHC.OFFVIS ---
Vital Signs 08/23/24 13:10 Height 5 ft 2 in Weight 326 lb 4.546 oz BMI 59.7 BP 118/74 Blood Pressure Location Lt brachial Position Sitting Pulse 92 Intake Visit Reasons: u/s results, neck lipoma Intake Note: Patient is seen in office for ultrasound results, following lipoma of the neck. Pt c/o: denies any changes, here for results us:08/07/24 Cardiothoracic Anesthesia Technician Required: No Accompanied by: Self / Same As Patient Allergies morphine [MORPHINE] Allergy (Intermediate, Verified 08/23/24 13:10) WBC ELEVATED/ N/V shellfish derived [SHELLFISH DERIVED] Allergy (Intermediate, Verified 08/23/24 13:10) HIVES iodine [IODINE] Allergy (Mild, Verified 08/23/24 13:10) RASH duloxetine Adverse Reaction (Intermediate, Verified 08/23/24 13:10) vomiting Medication List - Last Reconciled 08/23/24 by Real Huffman MD acetazolamide 250 mg PO BID amoxicillin-pot clavulanate 875-125 mg 1 tab PO BID 10 days aripiprazole 10 mg PO DAILY bupropion HCl XL 300 mg PO QAM 30 days agcocwjwtf-buniqdzaoyfmm-izqe 50-325-40 mg 1 tab PO Q6-8H PRN 30 days cholecalciferol (vitamin D3) 25 mcg PO DAILY clonazepam (Klonopin) 1 mg PO DAILY PRN 30 days fluoxetine 20 mg PO DAILY 30 days fluticasone propion-salmeterol 500-50 mcg/dose (Advair Diskus) 1 inh inhalation BID 30 days gabapentin 800 mg PO QID 30 days hydrocortisone 2.5% 1 appl topical BID PRN hydroxyzine HCl 50 mg PO TID PRN 30 days ipratropium-albuterol 0.5 mg-3 mg(2.5 mg base)/3 mL 3 mL inhalation Q4-6H PRN 30 days iron,carbonyl-vitamin C 65 mg iron- 125 mg (Vitron-C) 1 tab PO DAILY levothyroxine 175 mcg PO DAILY methocarbamol 500 mg PO TID PRN [NEBULIZER Use as directed as needed] omalizumab (Xolair) 300 mg subcut Q2W 28 days omeprazole 40 mg PO DAILY 90 days ondansetron 4 mg PO Q12H pantoprazole 40 mg PO DAILY polyethylene glycol 3350 17 grams PO DAILY sucralfate 10 mL PO BID tizanidine 4 mg PO TID PRN 30 days topiramate 100 mg (2 x 50 mg) PO BEDTIME 30 days MDD 100mg Ventolin HFA 90 mcg/actuation (albuterol sulfate) 2 puffs inhalation Q4-6H PRN NS HPI Comments Details: 39-year-old female patient presenting for evaluation of a lump in the posterior neck. This has been present for least 8 months not longer. She reports wearing a CPAP machine at night feels the strap rubs against this area of her neck which is causing discomfort. She also reports recently being diagnosed with a wisdom tooth infection and tonsillitis. She previously had a tooth extracted however recently found out a portion of the tooth remains and is infected. She was recently treated with antibiotics for the tonsillitis which she just completed. She still feels a lump in the posterior neck. Ultrasound was performed which revealed no suspicious mass, fluid collection or enlarged lymph nodes. [facility] Medical History Anxiety Chronic migraine without aura Cognitive disorder Multiple environmental allergies Morbid obesity with BMI of 60.0-69.9, adult MISAEL (obstructive sleep apnea) GERD (gastroesophageal reflux disease) Anemia Morbid obesity Hypersomnia Loud snoring Blurry vision, bilateral Chronic migraine without aura PTSD (post-traumatic stress disorder) Bipolar depression Depression Morbid obesity with BMI of 45.0-49.9, adult Migraine Bilateral foot pain Fibromyalgia History of thyroid cancer Smoker Papillary thyroid carcinoma Post-surgical hypothyroidism Bilateral lower extremity edema Elevated LFTs Anxiety Asthma Hypothyroidism Cervical lymphadenopathy Vitamin D deficiency Thyroid cancer Surgical History History of esophagogastroduodenoscopy (EGD) Hx of tubal ligation History of surgery Hx of lymph node biopsy Hx of total thyroidectomy (~05/2020) Hx of section Hx of cholecystectomy Family History Father Diabetes Asthma Hypertension Mother Diabetes Hypertension Multiple sclerosis Daughter No problems noted. Daughter No problems noted. Daughter No problems noted. Daughter Deaf Asthma Daughter Deaf Son No problems noted. Son Asthma Son No problems noted. Other FH: mental illness Social History Household Members: Spouse Housing: Apartment Are you a primary home health care social worker to a significant other at home: No Do you presently have visiting nurse or other home services: No Alcohol intake: current Alcohol intake frequency: holidays/special occasions only Patient Tobacco Use Status: Former Tobacco user Tobacco use type: Cigarette Years Smoked: 20 e-Cigarette/Vaping Use: Former Use Second Hand Smoke Exposure: Yes service: No Current occupational status: unemployed Current occupational exposures/hazards: No Cognitive needs: No Hearing needs: No Vision needs: Yes Female Reproductive History Menstrual Age of Menarche: 12 Review of Systems Const All systems reviewed & are unremarkable except as noted in HPI and below Denies chills, Denies fever(s), Reports headache(s), Denies poor appetite and Denies weakness ENT Reports headache(s) and Reports neck pain Card Denies chest pain, Denies irregular heart rhythm, Denies palpitations and Denies dyspnea Resp Denies cough, Denies excessive phlegm production and Denies dyspnea GI Denies abdominal pain, Denies bloating, Denies change in bowel habits, Denies constipation, Denies heartburn, Denies diarrhea, Denies nausea and Denies vomiting Denies urinary frequency Musc Reports back pain, Denies muscle weakness, Reports neck pain and Denies numbness Skin/Breast Denies changing lesions and Denies unusual bruising Neuro Reports headache(s), Denies numbness, Denies paresthesias and Denies weakness Psych Denies anxiety and Denies depression Endo Denies palpitations Parish/Lymph Denies lymphadenopathy Physical Exam Vital Signs: Last Vital Signs Pulse 92 08/23/24 13:10 BP 118/74 08/23/24 13:10 BMI result Body Mass Index 59.7 Const General: cooperative and no acute distress Nutritional Appearance: well nourished Orientation/consciousness: patient oriented x3 Limitations: no limitations HEENT Head: Yes normocephalic and Yes atraumatic Ears: hearing grossly normal bilaterally Neck Other: No definite palpable masses appreciated to my examination and no definite lymphadenopathy is appreciated. Patient is pointing to an area over the right lateral posterior neck directly over the neck muscles. No skin changes are appreciated as well. Resp Effort & Inspection: normal respiratory effort, no audible wheezes, no cough and no respiratory distress Cardio Jugular venous distension: no JVD GI Inspection: Yes normal to inspection Skin Other: Warm, dry, no rash Neuro General: patient oriented x3 Extrem General: Yes no clubbing, cyanosis or edema Assessment & Plan Assessment & Plan (1) Lipoma: Code(s): D17.9 - Benign lipomatous neoplasm, unspecified Category: Medical Qualifiers: Lipoma location: neck Qualified Code(s): D17.0 - Benign lipomatous neoplasm of skin and subcutaneous tissue of head, face and neck Plan 39-year-old female patient presenting with a palpable mass of the posterior right neck unknown etiology. She returns following an ultrasound of the soft tissue of the neck which revealed no suspicious mass to indicate an underlying lipoma. And no fluid collection or lymph nodes were identified as well. I suspect the swelling is from her neck muscles. I would not recommend any further surgical intervention at this time. She should follow up as needed. Coding Level of Care Code Est Pt Level 3 (25438) Diagnoses Lipoma of neck D17.0 Lipoma location: neck
[2024-08-23 13:10] VITALS: BP 118/74; PULSE 92; BMI 59.7
--- OUTSIDE RECORDS SUMMARY | 2024-08-23 15:31 | XMS_ITS | Encounter Summary ---
Author Organization [facility] Address [address] [place] [address] Care Team Providers Care House Calls Nurse Name Role Phone Lavon Richardson MD Primary Care Provider + [phone] Reason for Referral * Medications - Denied Specialty Diagnoses / Procedures Referred By Derrick koch Referred To Contact Diagnoses Class 3 severe obesity due to excess calories with body mass index (BMI) of 50.0 to 59.9 in adult, unspecified whether serious comorbidity present Christina Yu MD [address] [address] Phone: tel: fax: Referral ID Status Reason Start Date Expiration Date Visits Re quested Visits Authorized [id number] Denied 1 1 Reason for Visit * Reason Comments Consult New patient * Consultation (Routine) - Closed Specialty Diagnoses / Procedures Referred By Derrick koch Referred To Contact Bariatrics Diagnoses Encounter for weight management Lavon Richardson MD [address] [place] [address] [place] [address] Phone: tel: fax: Bariatric Surgery - [place] [address] [address] Phone: tel: fax: Referral ID Status Reason Start Date Expiration Date V isits Requested Visits Authorized [id number] Closed Specialty Services Required 07/13/2024 07/13/2025 1 1 Encounter Details Date Type Department Care Team (Late st Contact Info) Description 08/16/2024 1:30 PM EDT Office Visit Bariatric Surgery - [place] 175 [facility] [address] [place] [address] Christina Yu MD 175 [facility] [address] [place] [address] Class 3 severe obesity due to excess calories with body mass index (BMI) of 50.0 to 59.9 in adult, unspecified whether serious comorbidity present (CMS/HCC) (Primary Dx); Encounter for weight management Social History Tobacco Use Types Packs/Day Years Used Date Smoking Tobacco: Former Cigarettes Smokeless Tobacco: Never Alcohol Use Standard Drinks/Week Comments Never 0 (1 standard drink = 0.6 oz pur e alcohol) Comments Unknown Sex and Gender Information Value Date Recorded Sex Assigned at Female 07/09/2024 12:12 PM EST Legal Sex Female 9:43 AM EST Gender Identity Female 07/09/2024 12:12 PM EST Sexual Orientation Straight 07/09/2024 12 :12 PM EST documented as of this encounter Last Filed Vital Signs Vital Sign Reading Time Taken Comments Blood Pressure 94/74 08/16/2024 2:07 PM EDT Pulse 112 08/16/2024 2:07 PM EDT Temperature 36.6 ??C (97.8 ??F) 08/16/2024 2:07 PM ED T Respiratory Rate - - Oxygen Saturation - - Inhaled Oxygen Concentration - - Weight 147 kg (324 lb) 08/16/2024 2:07 PM EDT Height 157.5 cm (5' 2 ) 08/16/2024 2:07 PM EDT Body Mass Index 59.26 08/16/2024 2:07 PM EDT documented in this encounter Ordered Prescriptions Prescription Sig Dispense Quantity Refills Last Filled Start Date End Date tirzepatide, weight loss, (Zepbound) 2.5 mg/0.5 mL injectionIndicatio ns:Class 3 severe obesity due to excess calories with body mass index (BMI) of 50.0 to 59.9 in adult, unspecified whether serious comorbidity present Inject 0.5 mL (2.5 mg total) under the skin every 7 (seven) days for 4 doses. 2 mL 08/16/2024 09/07/2024 documented in this encounter Progress Notes * Christina Yu MD - 08/16/2024 1:30 PM EDT Referring physician: Ms. Ana María Bahena is a 39 y.o. year old female who presents for surgical consultation regarding obesity. HPI: Ms. Ana María Bahena has gained 150 lb since removing thyroid a year and a half ago. Barely eats . Eating fruits, to large amounts. No large portions at meals. Cantaloupe, raspberry honey dew, ayde. These are high glycemic foods. Coke zero. Depression, anxiety attacks, PTSD. Upset stomach with meds. No ETOH. Panic attack 2 days before surgery. BMI is 59.26. ROS: GENERAL: No malaise, significant unintentional weight loss, fever, chills or night sweats. HEENT: No changes in hearing or vision, no nose bleeds or other nasal problems. NECK: No lumps, goiter, pain or significant neck swelling RESPIRATORY: No cough, wheezing or shortness of breath CARDIOVASCULAR: No chest pain, leg swelling or palpitations. GI: No abdominal discomfort, nausea, vomiting, or change in bowel habits. : No dysuria, frequency or incontinence. SKIN: No lesions, rash or itching. HEMATOLOGY: No prolonged bleeding, easy bruisability. LYMPHOLOGY No swollen nodes. MUSCULOSKELETAL: No abnormalities. NEURO: No abnormalities. All other systems reviewed which are negative. PAST MEDICAL HISTORY: There is no problem list on file for this patient. PAST SURGICAL HISTORY: Past Surgical History: Procedure Laterality Date SECTION CHOLECYSTECTOMY THYROIDECTOMY SOCIAL HISTORY: Social History Tobacco Use Smoking status: Former Types: Cigarettes Smokeless tobacco: Never Substance Use Topics Alcohol use: Never FAMILY HISTORY: No family history on file. No family status information on file. MEDICATIONS: There are no discontinued medications. ACTIVE MEDICATIONS: Outpatient Medications Marked as Taking for the 08/16/24 encounter (Office Visit) with Christina Yu MD Medication Sig Dispense Refill acetaZOLAMIDE (DIAMOX) 250 mg tablet Take 1 tablet (250 mg total) by mouth 2 (two) times a day. Advair Diskus 500-50 mcg/dose diskus inhaler Inhale 1 puff by mouth 2 (two) times a day. albuterol 2.5 mg /3 mL (0.083 %) nebulizer solution Inhale 3 mL (2.5 mg total) by mouth 3 (three) times a day. amoxicillin-clavulanate (AUGMENTIN) 875-125 mg per tablet Take 1 tablet by mouth 2 (two) times a day. for 10 days azithromycin (ZITHROMAX) 250 mg tablet Take 1 tablet (250 mg total) by mouth 1 (one) time. buPROPion XL (WELLBUTRIN XL) 300 mg 24 hr tablet Take 1 tablet (300 mg total) by mouth 1 (one) timeeach day in the morning. zpwpihesgh-mpgczqxjunbnf-jhdcfryw (FIORICET, ESGIC) 50-325-40 mg per tablet Take 1 tablet by mouth 2 (two) times a day. cholecalciferol (VITAMIN D-3) 1,250 mcg (50,000 unit) capsule Take 50,000 Int'l Units by mouth 1 (one) time each day. gabapentin (NEURONTIN) 800 mg tablet Take 1 tablet (800 mg total) by mouth 4 (four) times a day. hydrocortisone 2.5 % cream Apply 28 Applications topically if needed. hydrOXYzine HCL (ATARAX) 50 mg tablet Take 1 tablet (50 mg total) by mouth 1 (one) time each day. levothyroxine (SYNTHROID, LEVOTHROID) 150 mcg tablet Take 1 tablet (150 mcg total) by mouth 1 (one)time each day. methocarbamoL (ROBAXIN) 500 mg tablet Take 1 tablet (500 mg total) by mouth 3 (three) times a day if needed. for muscle spasms omeprazole (PriLOSEC) [address] capsule Take 1 capsule (40 mg total) by mouth 1 (one) time each day. ondansetron ODT (ZOFRAN-ODT) 4 mg disintegrating tablet Dissolve 1 tablet (4 mg total) on top of the tongue if needed. Tirosint 150 mcg capsule Take 1 capsule (150 mcg total) by mouth 1 (one) time each day. Ventolin HFA 90 mcg/actuation inhaler Inhale 2 puffs by mouth if needed. ALLERGIES: Allergies Allergen Reactions Morphine Swelling Shellfish Derived Hives PHYSICAL EXAM: Visit Vitals BP 94/74 Pulse (!) 112 Temp 36.6 ??C (97.8 ??F) (Temporal) Ht 1.575 m (62 ) Wt 147 kg (324 lb) BMI 59.26 kg/m?? Smoking Status Former BSA 2.35 m?? APPEARANCE: Alert and oriented and in no acute distress EYES: Conjunctiva normal and sclera normal and anicteric. NECK: Neck supple with no adenopathy. HEART: RRR with normal S 1 and S 2, no murmurs, no gallops. LUNG: Clear to auscultation LYMPH NODES: No gross cervical or clavicular lymphadenopathy. ABDOMEN: Bowel sounds normoactive, soft, non-tender, non-distended, EXTREMITIES: Extremities warm and well perfused without clubbing, cyanosis, or edema. SKIN: Skin color and texture normal. No rashes or lesions. NEUROLOGIC: Alert and oriented ??3. No motor or sensory deficits in the extremities. LABS/IMAGING: @AORD@ ASSESSMENT: 1. Encounter for weight management Ambulatory referral to Bariatric Surgery PLAN: 1. I discussed with the patient the different procedures available including the sleeve gastrectomy, the gastric bypass and the single anastomosis duodenal ileal bypass with sleeve. Indications, benefits, risks and complications were discussed. I also discussed with the patient the different medical options. I explained the mechanism of action, the potential adverse effects and the expected results. These included phentermine, topiramate, naltrexone, bupropion and the different GLP-1 medications. The patient has decided that he/she wants to try incretin-based therapy before bariatric surgery. If the patient is not able to lose a significant amount of weight, she is less she agreed to proceed with the bariatric surgery program. 2. The patient is a good candidate for medical weight management given a BMI of 59.26. No known comorbidity but the patient has superobesity. Blood work is pending to rule out any comorbidity. She remains dedicated to improving their health and quality of life as well as remaining physicallyactive. I have had a long discussion with the patient regarding medical weight management which includes both oral medications including stimulants/appetite suppressants versus injectable GLP-1 medications. At this time, patient does not qualify for oral medication due to the following reasons -patient coretta multiple psychiatric medications. She also has significant anxiety. Not take phentermine. Also, the patient needs to lose more than the 5 to 10% total body weight weight loss that is usually achieved with these medications. In addition to this, oral stimulant suppressants are meant to be used short-term and studies have shown that obesity needs to be treated as a chronic condition. We have decided to proceed with injectable GIP/GLP-1 medication - tirzepatide . The risks and benefits of this medication were discussed in length with the patient. Benefits include weight loss and overall healthier lifestyle with he hopes of improving any co morbid conditions. Risks include nausea/vomiting, diarrhea, injection site reaction, gastroparesis. We have also discussed the potential for thyroid cancer and multiple endocrine neoplasia; patient denies family history of either condition. We discussed that this medication should be used long-term and that obesity will be treated as a chronic condition. If and when patient stops this medication weight may come back. The patient will follow-up in the office every 4 weeks for a weight check and potential dose titration The patient will also continue to follow-up with the dietitian to ensure that they are working on proper eating habits in addition to using the medication. 3. The patient will let us know in few weeks if the medication is being effective or if the patientis having side effects. The dose will be adjusted depending upon the response and the presence of side effects. Follow-up in 4 months. 4. Dietitian. documented in this encounter Plan of Treatment Upcoming Encounters Date Type Department Care Team ([facility] Contact Info) Description 09/11/2024 1:00 PM EDT Telemedicine Bariatric Surgery - [place] [address] [address] Melissa Upton, RD [address] [phone] 11/20/2024 8:45 AM EDT Office Visit Bariatric Surgery [address] [address] Christina Yu MD [address] [address] Scheduled Orders Name Type Priority Associated Diagnoses Orde r Schedule Lipid panel with reflex to direct LDL Lab Routine Class 3 severe obesity due to excess calories with body mass index (BMI) of 50.0 to 59.9 in adult, unspecified whether serious comorbidity present (CMS/HCC) 1 Occurrences starting 08/16/2024 until 08/16/2025 Hepatic function panel Lab Routine Class 3 severe obesity due to excess calories with body mass index (BMI) of 50.0 to 59.9 in adult, unspecified whether serious comorbidity present (CMS/HCC) 1 Occurrences starting 08/16/2024 until 08/16/2025 Thyroid stimulating hormone Lab Routine Class 3 severe obesity due to excess calories with body mass index (BMI) of 50.0 to 59.9 in adult, unspecified whether serious comorbidity present (CMS/HCC) 1 Occurrences starting 08/16/2024 until 08/16/2025 documented as of this encounter Visit Diagnoses Diagnosis Class 3 severe obesity due to excess calories with body mass index (BMI) of 50.0 to 59.9 in adult, unspecified whether serious comorbidity present- Primary Encounter for weight management documented in this encounter Historical Medications * This list may reflect changes made after this encounter. topiramate (TOPAMAX) 50 mg tablet Take 1 tablet (50 mg total) by mouth 2 (two) times a day. risperiDONE (RisperDAL) 0.25 mg tablet Take 1 tablet (0.25 mg total) by mouth 1 (one) time each day. ondansetron ODT (ZOFRAN-ODT) 4 mg disintegrating tablet Dissolve 1 tablet (4 mg total) on top of the tongue if needed. 4 omeprazole (PriLOSEC) [address] capsule Take 1 capsule (40 mg total) by mouth 1 (one) time each day. 5 methocarbamoL (ROBAXIN) 500 mg tablet Take 1 tablet (500 mg total) by mouth 3 (three) times a day if needed. for muscle spasms 5 Tirosint 150 mcg capsule Take 1 capsule (150 mcg total) by mouth 1 (one) time each day. 4 levothyroxine (SYNTHROID, LEVOTHROID) 150 mcg tablet Take 1 tablet (150 mcg total) by mouth 1 (one) time each day. 0 hydrOXYzine HCL (ATARAX) 50 mg tablet Take 1 tablet (50 mg total) by mouth 1 (one) time each day. 4 hydrocortisone 2.5 % cream Apply 28 Applications topically if needed. 5 gabapentin (NEURONTIN) 800 mg tablet Take 1 tablet (800 mg total) by mouth 4 (four) times a day. 5 Advair Diskus 500-50 mcg/dose diskus inhaler Inhale 1 puff by mouth 2 (two) times a day. 5 FLUoxetine (PROzac) 20 mg capsule Take 1 capsule (20 mg total) by mouth 1 (one) time each day. clonazePAM (KlonoPIN) 1 mg tablet Take 1 tablet (1 mg total) by mouth 1 (one) time each day if needed for anxiety. Max Daily Amount: 1 mg cholecalciferol (VITAMIN D-3) 1,250 mcg (50,000 unit) capsule Take 50,000 Int'l Units by mouth 1 (one) time each day. 0 butalbital-acetamin ophen-caffeine (FIORICET, ESGIC) 50-325-40 mg per tablet Take 1 tablet by mouth 2 (two) times a day. 5 buPROPion XL (WELLBUTRIN XL) 300 mg 24 hr tablet Take 1 tablet (300 mg total) by mouth 1 (one) time each day in the morning. 4 azithromycin (ZITHROMAX) 250 mg tablet Take 1 tablet (250 mg total) by mouth 1 (one) time. 4 ARIPiprazole (ABILIFY) 15 mg tablet Take 1 tablet (15 mg total) by mouth 1 (one) time each day. amoxicillin-clavula esdras (AUGMENTIN) 875-125 mg per tablet Take 1 tablet by mouth 2 (two) times a day. for 10 days 5 albuterol 2.5 mg /3 mL (0.083 %) nebulizer solution Inhale 3 mL (2.5 mg total) by mouth 3 (three) times a day. 3 Ventolin HFA 90 mcg/actuation inhaler Inhale 2 puffs by mouth if needed. 5 acetaZOLAMIDE (DIAMOX) 250 mg tablet Take 1 tablet (250 mg total) by mouth 2 (two) times a day. 5 added in this encounter Orders Outpatient Referral Count Last Ordered Date Fir st Ordered Date AMB REFERRAL TO BARIATRIC SURGERY 1 025 documented in this encounter Care Teams House Calls Nurse Relationship Specialty Start Date End Date Lavon Richardson MD [address] [place] [address] [address] [place] PCP - General Internal Medicine 08/16/24 documented as of this encounter
--- OUTSIDE RECORDS SUMMARY | 2024-08-23 15:31 | XMS_ITS | Encounter Summary ---
Author Organization [facility] Address [address] [place] [address] Care Team Providers Care Rn Teacher Name Role Phone Lavon Richardson MD Primary Care Provider [phone] Reason for Visit * Reason Onset Date Comments prior authorization 08/20/2024 Zepbound den ied Encounter Details Date Type Department Care Team ([facility] st Contact Info) Description 08/20/2024 Telephone Bariatric Surgery - [place] [address] [place] [phone] Christina Yu MD [address] [place] [address] prior authorization (Zepbound denied) Social History Tobacco Use Types Packs/Day Years [...] PM EST documented as of this encounter Progress Notes * Rani Tay - 08/20/2024 2:32 PM EDT Patient is requesting an appeal on the Zepbound 2.5 MG documented in this encounter Plan of Treatment Upcoming Encounters Date Type Department Care Team (Late st Contact Info) Description 09/11/2024 1:00 PM EDT Telemedicine Bariatric Surgery - [address] [phone] Melissa Upton, RD [address] [phone] 11/20/2024 8:45 AM EDT Office Visit Bariatric Surgery - [place] [address] [phone] Christina Yu MD [address] [address] documented as of this encounter Visit Diagnoses Not on filedocumented in this encounter Care Teams Rn Teacher Relationship Specialty Start Date End Date Lavon Richardson MD [address] [place] [address] [address] [place], [place] PCP - General Internal Medicine 08/16/24 documented as of this encounter
--- OUTSIDE RECORDS SUMMARY | 2024-08-23 15:31 | XMS_ITS | Clinical Summary ---
Author Organization [facility] Address [address] [place] [address] Phone Care Team Providers Care Technology Analyst Name Role Phone Lavon Richardson MD Primary Care Provider Allergies Active Allergy Reactions Criticality Noted Date Comments Morphine Swelling High 11/18/2017 Shellfish Derived Hives 05/30/2024 Medications acetaZOLAMIDE (DIAMOX) 250 mg tablet Take 1 tablet (250 mg total) by mouth 2 (two) times a day. 08/08/19 25 Active Ventolin HFA 90 mcg/actuation inhaler Inhale 2 puffs by mouth if needed. 08/14/19 25 Active albuterol 2.5 mg /3 mL (0.083 %) nebulizer solution Inhale 3 mL (2.5 mg total) by mouth 3 (three) times a day. 03/27/20 13 Active amoxicillin-clavul anate (AUGMENTIN) 875-125 mg per tablet Take 1 tablet by mouth 2 (two) times a day. for 10 days 08/01/19 25 Active ARIPiprazole (ABILIFY) 15 mg tablet Take 1 tablet (15 mg total) by mouth 1 (one) time each day. Active azithromycin (ZITHROMAX) 250 mg tablet Take 1 tablet (250 mg total) by mouth 1 (one) time. 02/27/20 24 Active buPROPion XL (WELLBUTRIN XL) 300 mg 24 hr tablet Take 1 tablet (300 mg total) by mouth 1 (one) time each day in the morning. 10/10/19 24 Active butalbital-acetami nophen-caffeine (FIORICET, ESGIC) 50-325-40 mg per tablet Take 1 tablet by mouth 2 (two) times a day. 08/09/19 25 Active cholecalciferol (VITAMIN D-3) 1,250 mcg (50,000 unit) capsule Take 50,000 Int'l Units by mouth 1 (one) time each day. 03/21/20 20 Active clonazePAM (KlonoPIN) 1 mg tablet Take 1 tablet (1 mg total) by mouth 1 (one) time each day if needed for anxiety. Max Daily Amount: 1 mg Active FLUoxetine (PROzac) 20 mg capsule Take 1 capsule (20 mg total) by mouth 1 (one) time each day. Active Advair Diskus 500-50 mcg/dose diskus inhaler Inhale 1 puff by mouth 2 (two) times a day. 07/26/19 25 Active gabapentin (NEURONTIN) 800 mg tablet Take 1 tablet (800 mg total) by mouth 4 (four) times a day. 08/16/19 25 Active hydrocortisone 2.5 % cream Apply 28 Applications topically if needed. 08/01/19 25 Active hydrOXYzine HCL (ATARAX) 50 mg tablet Take 1 tablet (50 mg total) by mouth 1 (one) time each day. 11/14/19 24 Active levothyroxine (SYNTHROID, LEVOTHROID) 150 mcg tablet Take 1 tablet (150 mcg total) by mouth 1 (one) time each day. 05/09/20 20 Active Tirosint 150 mcg capsule Take 1 capsule (150 mcg total) by mouth 1 (one) time each day. 05/08/20 24 Active methocarbamoL (ROBAXIN) 500 mg tablet Take 1 tablet (500 mg total) by mouth 3 (three) times a day if needed. for muscle spasms 06/29/19 25 Active omeprazole (PriLOSEC) [address] capsule Take 1 capsule (40 mg total) by mouth 1 (one) time each day. 07/19/19 25 Active ondansetron ODT (ZOFRAN-ODT) 4 mg disintegrating tablet Dissolve 1 tablet (4 mg total) on top of the tongue if needed. 10/28/19 24 Active risperiDONE (RisperDAL) 0.25 mg tablet Take 1 tablet (0.25 mg total) by mouth 1 (one) time each day. Active topiramate (TOPAMAX) 50 mg tablet Take 1 tablet (50 mg total) by mouth 2 (two) times a day. Active tirzepatide, weight loss, (Zepbound) 2.5 mg/0.5 mL injectionIndicatio ns:Class 3 severe obesity due to excess calories with body mass index (BMI) of 50.0 to 59.9 in adult, unspecified whether serious comorbidity present Inject 0.5 mL (2.5 mg total) under the skin every 7 (seven) days for 4 doses. 2 mL 08/17/19 025 Active Encounters Date Type Department Care Team Description 08/20/2024 Telephone Bariatric Surgery - [place] [address] [phone] Christina Yu MD prior authorization (Zepbound denied) 08/16/2024 1:30 PM EDT Office Visit Bariatric Surgery [address] [phone] Christina Yu MD Class 3 severe obesity due to excess calories with body mass index (BMI) of 50.0 to 59.9 in adult, unspecified whether serious comorbidity present (CMS/HCC) (Primary Dx); Encounter for weight management 05/30/2024 5:56 AM EST - 05/30/2024 6:54 AM EST Emergency [facility] Emergency [address] [place] [phone] Max Daniels MD Muscle spasm (Primary Dx) Discharge Disposition: Home or Self Care from Last 3 Months Surgical History Surgery Date Site/Laterality Comments THYROIDECTOMY CHOLECYSTECTOMY SECTION Medical History Medical History Date Comments Multiple sclerosis (CMS/HCC) Thyroid cancer (CMS/HCC) Lymphoma Social History Tobacco Use Types Packs/Day Years [...] 08/16/2024 2:07 PM ED T Respiratory Rate 22 05/30/2024 5:07 AM EST Oxygen Saturation 96% 05/30/2024 5:07 AM EST Inhaled Oxygen Concentration - - Weight 147 kg (324 lb) 08/16/2024 2:07 PM EDT Height 157.5 cm (5' 2 ) 08/16/2024 2:07 PM EDT Body Mass Index 59.26 08/16/2024 2:07 PM EDT Plan of Treatment Upcoming Encounters Date Type Department Care Team (Late st Contact Info) Description 09/11/2024 1:00 PM EDT Telemedicine Bariatric Surgery [facility] [address] [phone] Melissa Upton, RD [address] [phone] 11/20/2024 8:45 AM EDT Office Visit Bariatric Surgery [address] [phone] Christina Yu MD [address] [phone] Health Maintenance Due Date Last Done Comments [...] 8a panel, urine (05/30/2024 5:58 AM EST) [facility] Amphetamine Screen, Ur Negative Negative LAB CHEMISTRY METHOD 05/30/2024 6:31 AM [facility] Comment:Certain OTC medicati ons containing ephedrine, phenylephrine, pseudoephedrine and phenylpropanolamine can cause false positive results. Barbiturate Screen, Ur Negative Negative LAB CHEMISTRY METHOD 05/30/2024 6:31 AM [facility] Benzodiazepine Screen, Ur Negative Negative LAB CHEMISTRY METHOD 05/30/2024 6:31 AM [facility] Cocaine Screen, Ur Negative Negative LAB CHEMISTRY METHOD 05/30/2024 6:31 AM [facility] Opiate Screen, Ur Negative Negative LAB CHEMISTRY METHOD 05/30/2024 6:31 AM [facility] Cannabinoid (THC) Screen, Ur Negative Negative LAB CHEMISTRY METHOD 05/30/2024 6:31 AM [facility] Comment:Specimens from patie nts taking pantoprazole sodium (Protonix) have been shown to produce false positive results. Oxycodone Screen, Ur Negative Negative LAB CHEMISTRY METHOD 05/30/2024 6:31 AM [facility] Fentanyl, Ur Negative Negative LAB CHEMISTRY METHOD 05/30/2024 6:31 AM [facility] Urine Urine specimen obtained by clean catch procedure / Unknown Non-blood Collection / Unknown 05/30/2024 5:58 AM EST 05/30/2024 6:07 AM [facility] - 05/30/2024 6:31 AM EST Assay [...] Final Resu lt Performing Organization Address [facility] de Phone Number [facility] [address] [place] [address], [place] [phone] * Buprenorphine screen, urine (05/30/2024 5:58 AM EST) [facility] Buprenorphine Screen Urine Negative Negative LAB CHEMISTRY METHOD 05/30/2024 6:31 AM EST [facility] Urine Urine specimen obtained by clean catch procedure / Unknown Non-blood Collection / Unknown 05/30/2024 5:58 AM EST 05/30/2024 6:07 AM EST Narrative [facility] - 05/30/2024 6:31 AM EST Assay cutoff 5 ng/mL Semi-quantitative assay for screening purposes only. Unconfirmed screening result should not be used for non-medical purposes. *ALTERNATE METHOD CONFIRMATION DONE UPON REQUEST ONLY* Max Daniels MD LAB URINE ORDERABLES Final Resu lt Performing Organization Address [facility] de Phone Number [facility] [address] [place] [address], [place] [phone] * Methadone, urine (05/30/2024 5:58 AM EST) [facility] Methadone Screen, Urine Negative Negative LAB CHEMISTRY METHOD 05/30/2024 6:31 AM EST [facility] Comment: Assay cutoff 300 [...] Final Resu lt Performing Organization Address [facility] de Phone Number [facility] [address] [place] [address], [place] [phone] * Phencyclidine, urine (05/30/2024 5:58 AM EST) PCP Scrn, Ur Negative Negative LAB CHEMISTRY METHOD 05/30/2024 6:31 AM EST [facility] Comment: Assay cutoff 25 [...] ORDERABLES Final Resu lt Performing Organization Address City/[facility]/ZIP Co de Phone Number [facility] [address] [place] [address], [place] [phone] * (ABNORMAL) CBC auto differential (05/30/2024 5:52 AM EST) WBC 13.1(H) 4.8 - 10.8 K/[facility] HEMETOLOGY METHOD 05/30/2024 6:13 AM EST [facility] RBC 4.50 3.80 - 4.80 M/[facility] LAB HEMETOLOGY METHOD 05/30/2024 6:13 AM [facility] Hemoglobin 11.6 11.5 - 16.0 g/dL LAB HEMETOLOGY METHOD 05/30/2024 6:13 AM [facility] Hematocrit 37.9 35.0 - 47.0 % LAB HEMETOLOGY METHOD 05/30/2024 6:13 AM [facility] MCV 85.2 79.0 - 98.0 FL LAB HEMETOLOGY METHOD 05/30/2024 6:13 AM [facility] MCH 26.1(L) 27.0 - 32.0 pcg LAB HEMETOLOGY METHOD 05/30/2024 6:13 AM [facility] MCHC 30.6(L) 32.0 - 37.0 g/dL LAB HEMETOLOGY METHOD 05/30/2024 6:13 AM [facility] RDW 16.3(H) 11.0 - 15.0 % LAB HEMETOLOGY METHOD 05/30/2024 6:13 AM [facility] Platelets 435(H) 130 - 400 K/mcL LAB HEMETOLOGY METHOD 05/30/2024 6:13 AM [facility] MPV 9.1 7.0 - 11.0 FL LAB HEMETOLOGY METHOD 05/30/2024 6:13 AM [facility] NRBC 0.0 <1.0 % LAB HEMETOLOGY METHOD 05/30/2024 6:13 AM [facility] NRBC Absolute 0.00 <0.10 K/mcL LAB HEMETOLOGY METHOD 05/30/2024 6:13 AM [facility] Neutrophils Relative 51.2 % LAB HEMETOLOGY METHOD 05/30/2024 6:13 AM [facility] Lymphocytes Relative 34.7 % LAB HEMETOLOGY METHOD 05/30/2024 6:13 AM EST [facility] Monocytes Relative 7.3 % LAB HEMETOLOGY METHOD 05/30/2024 6:13 AM [facility] Eosinophils Relative 5.4 % LAB HEMETOLOGY METHOD 05/30/2024 6:13 AM [facility] Basophils Relative 0.6 % LAB HEMETOLOGY METHOD 05/30/2024 6:13 AM [facility] Immature Granulocytes Relative 0.8 % LAB HEMETOLOGY METHOD 05/30/2024 6:13 AM [facility] Neutrophils Absolute 6.71 1.50 - 7.00 K/mcL LAB HEMETOLOGY METHOD 05/30/2024 6:13 AM [facility] Lymphocytes Absolute 4.53 1.00 - 5.00 K/mcL LAB HEMETOLOGY METHOD 05/30/2024 6:13 AM [facility] Monocytes Absolute 0.95 0.20 - 1.00 K/mcL LAB HEMETOLOGY METHOD 05/30/2024 6:13 AM [facility] Eosinophils Absolute 0.70(H) 0.00 - 0.50 K/mcL LAB HEMETOLOGY METHOD 05/30/2024 6:13 AM [facility] Basophils Absolute 0.08 0.00 - 0.20 K/mcL LAB HEMETOLOGY METHOD 05/30/2024 6:13 AM [facility] Immature Granulocytes Absolute 0.10(H) 0.00 - 0.03 K/mcL LAB HEMETOLOGY METHOD 05/30/2024 6:13 AM [facility] Blood Venous blood specimen / Unknown Venipuncture / Unknown 05/30/2024 5:52 AM EST 05/30/2024 6:06 AM EST us Max Daniels MD LAB BLOOD ORDERABLES Final Resu lt [facility] [address] [place] [address], [place] [phone] * Magnesium (05/30/2024 5:52 AM EST) Magnesium 2.2 1.9 - 2.6 mg/dL LAB CHEMISTRY METHOD 05/30/2024 6:26 AM EST [facility] Blood Venous blood specimen / Unknown Venipuncture / Unknown 05/30/2024 5:52 AM EST 05/30/2024 6:07 AM EST us Max Daniels MD LAB BLOOD ORDERABLES Final Resu lt Performing Organization Address City/[facility]/ZIP Co de Phone Number [facility] [address] [place] [address], [place] [phone] * (ABNORMAL) Ethanol (05/30/2024 5:52 AM EST) Ethanol Level 298(H) 0 - 10 mg/dL LAB CHEMISTRY METHOD 05/30/2024 6:50 AM EST [facility] Blood Venous blood specimen / Unknown Venipuncture / Unknown 05/30/2024 5:52 AM EST 05/30/2024 6:07 AM EST us Max Daniels MD LAB BLOOD ORDERABLES Final Resu lt [facility] [address] [place] [address], [place] [phone] * (ABNORMAL) Acetaminophen level (05/30/2024 5:52 AM EST) Acetaminophen Level <2.0(L) 10.0 - 30.0 mcg/mL LAB CHEMISTRY METHOD 05/30/2024 6:51 AM EST [facility] Blood Venous blood specimen / Unknown Venipuncture / Unknown 05/30/2024 5:52 AM EST 05/30/2024 6:07 AM EST us Max Daniels MD LAB BLOOD ORDERABLES Final Resu lt Performing Organization Address [facility]/ZIP Co de Phone Number [facility] [address] [place] [address], [place] [phone] * (ABNORMAL) Salicylate level (05/30/2024 5:52 AM EST) Salicylate Level <1.7(L) 2.0 - 29.0 mg/dL LAB CHEMISTRY METHOD 05/30/2024 6:50 AM [facility] Blood Venous blood specimen / Unknown Venipuncture / Unknown 05/30/2024 5:52 AM EST 05/30/2024 6:07 AM EST us Max Daniels MD LAB BLOOD ORDERABLES Final Resu lt Performing Organization Address [facility] Co de Phone Number [facility] [address] [place] [address], [place] [phone] * (ABNORMAL) Basic metabolic panel (05/30/2024 5:52 AM EST) Sodium 134 133 - 145 mmol/L LAB CHEMISTRY METHOD 05/30/2024 6:26 AM [facility] Potassium 4.2 3.5 - 5.5 mmol/L LAB CHEMISTRY METHOD 05/30/2024 6:26 AM [facility] Chloride 103 96 - 110 mmol/L LAB CHEMISTRY METHOD 05/30/2024 6:26 AM [facility] CO2 20(L) 21 - 32 mmol/L LAB CHEMISTRY METHOD 05/30/2024 6:26 AM [facility] Anion Gap 11 3 - 11 LAB CHEMISTRY METHOD 05/30/2024 6:26 AM [facility] Glucose 113(H) 70 - 100 mg/dL LAB CHEMISTRY METHOD 05/30/2024 6:26 AM [facility] BUN 10 5 - 25 mg/dL LAB CHEMISTRY METHOD 05/30/2024 6:26 AM EST [facility] Creatinine 1.07 0.50 - 1.10 mg/dL LAB CHEMISTRY METHOD 05/30/2024 6:26 AM EST [facility] eGFR 68 >=60 mL/min/1. 73m2 LAB CHEMISTRY METHOD 05/30/2024 6:26 AM EST [facility] Comment:Calculation based on the??Chronic Kidney Disease Epidemiology Collaboration (CKD-EPI) equation refit??without adjustment for race. BUN/Creatinine Ratio 9.3 LAB CHEMISTRY METHOD 05/30/2024 6:26 AM [facility] Calcium 8.8 8.5 - 10.5 mg/dL LAB CHEMISTRY METHOD 05/30/2024 6:26 AM [facility] Blood Venous blood specimen / Unknown Venipuncture / Unknown 05/30/2024 5:52 AM EST 05/30/2024 6:07 AM EST us Max Daniels MD LAB BLOOD ORDERABLES Final Resu lt [facility] [address] [place] [address], [place] [phone] from Last 3 Months Insurance [facility] [employer] Care Teams Technology Analyst Relationship Specialty Start Date End Date Lavon Richardson MD [address] [place] [address] [address] LUBA Moreland PCP - General Internal Medicine 08/16/24
== END 2024-08-23 13:32 | disposition home or self-care (01) ==
LOC: HO.HGS 13:03
PROVIDERS: PCP Internal Medicine; Visit Provider Surgery
DX: D17.0 Benign lipomatous neoplasm of skin and subcutaneous tissue of head, face and neck (principal)
CPT/HCPCS: 99213

== ENCOUNTER → 2024-08-23 13:02 | Outpatient (BNVA) | payer OTHER, SELFPAY | PROVIDERS: PCP Internal Medicine; Visit Provider Surgery | DX: D17.0 Benign lipomatous neoplasm of skin and subcutaneous tissue of head, face and neck (principal) | CPT/HCPCS: 99212 ==

== ENCOUNTER 2024-09-05 08:54 | Day surgery (SDC) | payer OTHER, SELFPAY ==
--- NOTE | ~2024-09-05 | FL_ITS ---
EXAMINATION: XR LUMBAR PUNCTURE CLINICAL INFORMATION: E66.01 - Morbid (severe) obesity due to excess calories ; migraine headaches. COMPARISON: None available. TECHNIQUE: Informed consent was obtained from the patient. Timeout was performed. Using fluoroscopic guidance, the L2-3 interlaminar space was identified, marked, and the skin prepped and draped in sterile fashion. Skin and subcutaneous tissues were anesthetized with 1% lidocaine. Subsequently, a 22-gauge 5 inch Quincke spinal needle was advanced into the thecal sac, and clear CSF was noted at the needle hub. Opening pressure was measured at 8 cm H2O. Approximately 7 mL of clear CSF was obtained passively, and sent for laboratory analysis. The patient tolerated the procedure well. There were no immediate complications. 1 fluoroscopic spot image obtained. FLUOROSCOPY TIME: 37 seconds DOSE AREA PRODUCT: 61.6 uGy-m2 (microgray-meter squared) FL/FL guided lumbar puncture LP IMPRESSION: 1. Successful L2-3 fluoroscopic guided lumbar puncture without immediate complication. Opening pressure of 8 cm H2O. Electronically signed by: Forrest Lennon MD 09/05/2024 02:06 PM EDT
[2024-09-05 10:14] LABS: UPreg QC Valid YES; Urine Pregnancy NEGATIVE (NEGATIVE)
[2024-09-05 10:20] LABS: MANUAL DIFF FLAG NO
[2024-09-05 10:25] LABS: Basophils Percent Auto 0.4 % (0-2); Eosinophils Absolute Auto 0.4 X10*3/uL (0.0-0.4); Eosinophils Percent Auto 3.5 % (0-4); Hematocrit 36.9 % (37.0-47.0); Hemoglobin 11.5 g/dl (12.0-16.0); Imm Gran Abs Auto 0.03 X10*3/uL (0.00-0.03); Imm Gran Pct Auto 0.3 % (0.0-0.4); Lymphocytes Absolute Auto 2.1 X10*3/uL (1.2-4.9); Lymphocytes Percent Auto 20.6 % (20-40); Mean Corpuscular HGB Conc 31.2 g/dl (31.0-35.0); Mean Corpuscular Hemoglobin 25.6 pg (27.0-33.0); Mean Platelet Volume 9.2 fL (9.4-12.3); Monocytes Absolute Auto 0.8 X10*3/uL (0.1-1.2); Monocytes Percent Auto 7.4 % (2-11); Neutrophils Absolute Auto 6.9 x10*3/uL (2.0-8.3); Neutrophils Percent Auto 67.8 % (45-73); Platelet Count 390 X10*3/uL (160-400); Red Cell Distribution Width 16.1 % (11.0-16.0); White Blood Count 10.2 X10*3/uL (4.8-10.8)
[2024-09-05 10:32] LABS: Prothrombin Time 11.2 SEC (10.9-12.4)
[2024-09-05 10:35] LABS: Partial Thromboplastin Time 33.2 SEC (26.0-36.8)
[2024-09-05 10:53] VITALS: BP 118/78; PULSE 106; RESP 20; TEMP 36.6; O2SAT 97
[2024-09-05 12:25] VITALS: BP 93/64; PULSE 87; RESP 16; TEMP 36.3; O2SAT 99
[2024-09-05 12:40] VITALS: BP 88/51; PULSE 89; RESP 17; O2SAT 97
[2024-09-05 12:55] VITALS: BP 98/56; PULSE 79; RESP 16; O2SAT 98
[2024-09-05 13:10] VITALS: BP 105/68; PULSE 83; RESP 18; O2SAT 97
[2024-09-05 13:25] VITALS: BP 108/66; PULSE 86; RESP 16; TEMP 36.4; O2SAT 96
[2024-09-05 13:40] LABS: CSF Appearance Clear, Colorless; CSF Tube # 1
[2024-09-05 13:53] LABS: Glucose CSF 66 mg/dL; Total Protein CSF 18.5 mg/dL (15-45)
[2024-09-05 14:55] LABS: Appearance CSF CLEAR; CSF Monos 40 %; CSF Tube # 1; CSF Volume 6.5 ML; Color CSF COLORLESS; Lymphocytes CSF 60 %; White Blood Cell CSF 1 MM*3
[2024-09-05 14:56] LABS: Red Blood Cell CSF 53 MM*3
== END 2024-09-05 13:32 | disposition home or self-care (01) ==
PROVIDERS: Physician Assistant Medical; Radiology Diagnostic Radiology; Student in an Organized Health Care Education/Training Program; PCP Internal Medicine; Visit Provider Psychiatry & Neurology Neurology
PROC: 009U3ZZ Drainage of Spinal Canal, Percutaneous Approach (ICD-10-PCS; CPT 62270; principal; 2024-09-05 11:00)
DX: G43.719 Chronic migraine without aura, intractable, without status migrainosus (principal); E66.01 Morbid (severe) obesity due to excess calories; Z68.44 Body mass index [BMI] 60.0-69.9, adult; M79.7 Fibromyalgia; G47.33 Obstructive sleep apnea (adult) (pediatric); G24.9 Dystonia, unspecified; H53.9 Unspecified visual disturbance; Z86.69 Personal history of other diseases of the nervous system and sense organs; F09 Unspecified mental disorder due to known physiological condition; F41.9 Anxiety disorder, unspecified; J45.909 Unspecified asthma, uncomplicated; Z79.52 Long term (current) use of systemic steroids; Z79.891 Long term (current) use of opiate analgesic; Z79.899 Other long term (current) drug therapy; Z99.89 Dependence on other enabling machines and devices; Z88.5 Allergy status to narcotic agent; Z88.8 Allergy status to other drugs, medicaments and biological substances; Z91.041 Radiographic dye allergy status; Z87.891 Personal history of nicotine dependence; Z56.0 Unemployment, unspecified
CPT/HCPCS: 36415; 62328; 81025; 82945; 84157; 85025; 85610; 85730; 87015; 87070; 87205; 89051; J2003

== ENCOUNTER → 2024-09-05 12:35 | Outpatient (BNV) | payer OTHER, SELFPAY | PROVIDERS: PCP Internal Medicine; Visit Provider Radiology Diagnostic Radiology | DX: G43.909 Migraine, unspecified, not intractable, without status migrainosus (principal) | CPT/HCPCS: 62328 ==

== ENCOUNTER 2024-09-13 11:12 | Outpatient (AMB) | payer OTHER, SELFPAY ==
--- NOTE | 2024-09-13 11:14 | MHC.OFFVIS ---
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 Intake Note: Maira 39 yr old female presents today with her Asad for a new patient visit for an evaluation of spasms. States she gets muscle spasm combine with muscle contractions all over her body that started about 2 years and has gradually worsen. States when this occurs it is very pain and limits her from doing her daily activities. Stretching adn massaging the area helps a little. Reports after her episodes she feels super drained and tired. Hx of back puncture and migraines. States this is the first time she will be seen for this. Allergies morphine [MORPHINE] Allergy (Intermediate, Verified 09/13/24 11:16) WBC ELEVATED/ N/V shellfish derived [SHELLFISH DERIVED] Allergy (Intermediate, Verified 09/13/24 11:16) HIVES iodine [IODINE] Allergy (Mild, Verified 09/13/24 11:16) RASH duloxetine Adverse Reaction (Intermediate, Verified 09/13/24 11:16) vomiting Medication List - Last Reconciled 09/13/24 by Flaca Hayes MD acetazolamide 250 mg PO BID aripiprazole 10 mg PO DAILY bupropion HCl XL 300 mg PO QAM 30 days rzibgvxmml-xtfdqsgxmjxta-avjp 50-325-40 mg 1 tab PO Q6-8H PRN 30 days cholecalciferol (vitamin D3) 25 mcg PO DAILY clonazepam (Klonopin) 1 mg PO DAILY PRN 30 days fluoxetine 20 mg PO DAILY 30 days fluticasone propion-salmeterol 500-50 mcg/dose (Advair Diskus) 1 inh inhalation BID 30 days gabapentin 800 mg PO QID 30 days hydrocortisone 2.5% 1 appl topical BID PRN hydroxyzine HCl 50 mg PO TID PRN 30 days ipratropium-albuterol 0.5 mg-3 mg(2.5 mg base)/3 mL 3 mL inhalation Q4-6H PRN 30 days iron,carbonyl-vitamin C 65 mg iron- 125 mg (Vitron-C) 1 tab PO DAILY levothyroxine 175 mcg PO DAILY methocarbamol 500 mg PO TID PRN [NEBULIZER Use as directed as needed] omalizumab (Xolair) 300 mg subcut Q2W 28 days omeprazole 40 mg PO DAILY 90 days ondansetron 4 mg PO Q12H pantoprazole 40 mg PO DAILY polyethylene glycol 3350 17 grams PO DAILY sucralfate 10 mL PO BID tizanidine 4 mg PO TID PRN 30 days topiramate 100 mg (2 x 50 mg) PO BEDTIME 30 days MDD 100mg Ventolin HFA 90 mcg/actuation (albuterol sulfate) 2 puffs inhalation Q4-6H PRN NS HPI Comments Details: Reviewed notes from Neurology, patient was seen for sleep apnea, cognitive decline, although MMSE was normal. Reviewed notes from PCP. Patient has history of fibromyalgia, treated with gabapentin and muscle relaxers. History of elevated LFTs, thyroid cancer, anemia, lipoma on her back, anxiety and bipolar disorder. Patient complained of muscle cramps/question dystonia, therefore referred to physiatry. Describes as muscles could ball up in contracture but does not affect joints or movements. She is able to stretch the arm or leg despite the cramps. When you sneeze, lower back or abdomen could spasm. Jaw could get stuck when she yawns. These could last up to half an hour. No tremors or fasciculations. No numbness. No focal muscle weakness. No neck pain or lower back pain, but does have fibromyalgia so all over pain on a regular basis. The contractures are very painful to the point of tears. No atrophy. Denies famiy history of neuropathy. A mother side aunt had possible congenital syndrome, not sure what. [facility] Medical History Anxiety Chronic migraine without aura Cognitive disorder Multiple environmental allergies Morbid obesity with BMI of 60.0-69.9, adult MISAEL (obstructive sleep apnea) GERD (gastroesophageal reflux disease) Anemia Morbid obesity Hypersomnia Loud snoring Blurry vision, bilateral Chronic migraine without aura PTSD (post-traumatic stress disorder) Bipolar depression Depression Morbid obesity with BMI of 45.0-49.9, adult Migraine Bilateral foot pain Fibromyalgia History of thyroid cancer Smoker Papillary thyroid carcinoma Post-surgical hypothyroidism Bilateral lower extremity edema Elevated LFTs Anxiety Asthma Hypothyroidism Cervical lymphadenopathy Vitamin D deficiency Thyroid cancer Surgical History History of esophagogastroduodenoscopy (EGD) Hx of tubal ligation History of surgery Hx of lymph node biopsy Hx of total thyroidectomy (~05/2020) Hx of section Hx of cholecystectomy Family History Father Diabetes Asthma Hypertension Mother Diabetes Hypertension Multiple sclerosis Daughter No problems noted. Daughter No problems noted. Daughter No problems noted. Daughter Deaf Asthma Daughter Deaf Son No problems noted. Son Asthma Son No problems noted. 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 Patient was appropriately conversant and oriented. Good historian. MSK: Inspection reveals appropriate head and neck positioning. No pain with palpation over the neck musculature. Cervical ROM was full. Spurling's sign negative. Bilateral shoulder, elbow and wrist ROM WNL. No ligamentous laxity or crepitance. No increased effusion. No specific abnormalities or instability found on inspection and palpation of the spine and extremities. Strength is 5/5 in all muscle groups tested. No increased tone noted. Neurological: Mood appears normal, good affect, and appropriate for the circumstances. Neurologic examination of the upper and lower extremities was nonfocal with intact sensation, muscle stretch reflexes and without focal motor deficits. Gardner?s negative bilaterally. Babinski was down going bilaterally. Clonus was negative. Gait is non-antalgic without loss of balance. Results Reviewed Results Reviewed: Reviewed notes as above. Reviewed lab results. Assessment & Plan Assessment & Plan (1) Muscle cramps: Code(s): R25.2 - Cramp and spasm Category: Medical Plan Muscle cramps, etiology unknown. History of fibromyalgia, elevated LFTs, low vitamin-D. We will schedule for EMG upper and lower extremities Assessment and plan discussed with patient, and patient was agreeable. All questions were answered thoroughly. Flaca Hayes MD, LEWIS Board Certified, [place] [employer] and Rehabilitation (ABPMR) Board Certified, [place] Board of Electrodiagnostic Medicine (ABEM) Orders: Orders NE electromyogram (EMG) Today R25.2 - Cramp and spasm NE nerve conduction velocity Today R25.2 - Cramp and spasm Coding Level of Care Code New Pt Level 4 (01268) Diagnoses Muscle cramps R25.2
[2024-09-13 11:15] VITALS: BMI 59.3
--- OUTSIDE RECORDS SUMMARY | 2024-09-13 13:36 | XMS_ITS | Encounter Summary ---
Author Organization [facility] Address [address] [place] [address] Care Team Providers Care General Production Manager Name Role Phone Lavon Richardson MD Primary Care Provider [phone] Reason for Visit * Reason Onset Date Comments prior authorization 08/20/2024 Zepbound den ied Encounter Details Date Type Department Care Team ([facility] st Contact Info) Description 08/20/2024 Telephone Bariatric Surgery - [place] [address] [facility] [address] [place] [phone] Christina Yu MD [address] [facility] [address] [place] [address] prior authorization (Zepbound denied) Social History Tobacco [...] Care Team (Late st Contact Info) Description 11/20/2024 8:45 AM EDT Office Visit Bariatric Surgery - [place] [address] [phone] Christina Yu MD [address] [address] 12/11/2024 1:30 PM EDT Nutrition Bariatric Surgery - [place] [address] [phone] Melissa Upton, RD [address] [phone] documented as of this encounter Visit Diagnoses Not on filedocumented in this encounter Care Teams General Production Manager Relationship Specialty Start Date End Date Lavon Richardson MD [address] [place] [address] PCP - General Internal Medicine 08/16/24 documented as of this encounter
--- OUTSIDE RECORDS SUMMARY | 2024-09-13 13:36 | XMS_ITS | Encounter Summary ---
Author Organization [facility] Address [address] [place] [address] Care Team Providers Care Turbine Blade Assembler Name Role Phone Lavon Richardson MD Primary Care Provider Encounter Details Date Type Department Care Team (Late st Contact Info) Description 09/11/2024 1:00 PM EDT Telemedicine Bariatric Surgery - [address] [place] [phone] Melissa Upton, RD 175 [facility] 120 [place] [address] Class 3 severe obesity without serious comorbidity with body mass index (BMI) of 50.0 to 59.9 in adult, unspecified obesity type (Primary Dx) Social History Tobacco Use Types Packs/Day Years [...] Sign Reading Time Taken Comments Blood Pressure - - Pulse - - Temperature - - Respiratory Rate - - Oxygen Saturation - - Inhaled Oxygen Concentration - - Weight 147 kg (324 lb) 09/11/2024 1:00 PM EDT Height - - Body Mass Index 59.26 08/16/2024 2:07 PM EDT documented in this encounter Progress Notes * Melissa Upton RD - 09/11/2024 1:00 PM EDT Patient-created Goals: 64 oz of water daily - preferably sipping throughout the day (no carbonation or sugar) 70-90 (with injections) grams of protein per day from lean protein sources such as chicken, turkey,fish, beans, etc. Australian yogurt (okios) A minimum of 3 meals per day. Preferably 3 small meals and 2 snacks spaced out over the course of the day (every 3-5 hours) Each meal and snack should include protein Protein shakes can replace a meal or snack, look for 20-30 grams of protein, less than 5 grams of added sugar (orgain, premiere) -Mindfullness (utube) Onel Lozano, Renita Flowers (I am affirmations), Manav Gonzalez (morning affirmations) -Utube workouts 10-20 minutes 3 -4x week -Going for 20 minute walks when weather warms up Melissa Upton RDN Bariatric Dietitian [facility] [email or web address] W [phone] [place] [address] [address] * Melissa Upton RD - 09/11/2024 1:00 PM EDT The patient received guidance on receiving healthcare through telehealth, including the use of HIPAA privacy -compliant technology for remote communication and its associated privacy risks. The patient was also informed of the limitations of treatment provided through telehealth and that in the event of a lost or failed video connection, the provider may call back or reschedule the visit. Alternatively, the patient may opt for an in-person visit. The patient gave consent for the use of video communication and provided care and confirmed that they were in a quiet and private location to discuss their health freely. The patient understands the visit will be submitted to their insurance and that they are responsible for any copay or deductible charges. Additionally, if the patient is LimitedEnglish Proficient, deaf, or hard of hearing, speech impaired, or has another disability which impairs their ability to communicate, the services of a qualified diplomatic interpreter/translator will be provided during the visit. Patients Location: home Total Time: 35 minutes INITIAL NUTRITION CONSULT Patient Name: Maira Bahena Date of : 1985 Date of Service: 09/11/2024 SURGEON: Christina Yu MD DESIRED SURGERY: Medication Management CHIEF COMPLAINT: Obesity HISTORY: Maira Bahena is a 39 y.o. Female who presents for initial nutrition visit for Weight loss management Reports reasons for wanting to lose weight: To improve mobility and To be able to be more active What made you decide to have weight loss surgery? N/a Do you know anyone who has had weight loss surgery? Did not discuss Previous Weight Loss Methods: was going to go for surgery, but had panic attack day before History of Dietitian/Flour Tester Visits previously: Yes Ht Readings from Last 1 Encounters: 08/16/24 1.575 m (62 ) Wt today: Wt Readings from Last 3 Encounters: 09/11/24 147 kg (324 lb) 08/16/24 147 kg (324 lb) 05/30/24 141 kg (310 lb) Body mass index is 59.26 kg/m??. Wt at initial: 324 Wt change since initial: 0 EBW = current - wt at BMI of 25: 324 - 140 = 184 Goal wt: 150-160 Highest/lowest wt: 324/130 Onset of obesity: 2020 Family history of obesity: Yes Possible triggers to weight gain: none Life events that lead to weight gain: after thyroid was removed Factors making weight loss difficult: sitting all day, fibromyalgia Weight change in the past year: gained 60 lb EATING HABITS/DIET RECALL: Breakfast: skip Lunch: skips maybe 1 pm mac and cheese or ramen, Chicken salad Dinner: rice, beans, drum sticks, steak, ground meat, spaghetti with meat sauce, kielbasa Snacks: fruit Beverages: coke zero, water (3 bottles), juices Dislikes: none Dines out: Yes 3x a month/ double end production grinder, wings, [employer] chicken sandwich with fries History of disordered eating: No Skips meals: Yes Pace of eating: Medium GI issues: Nausea, GERD Food allergies / intolerances: Seafood Exercise: none (cooking, cleaning, doing laundry) Reasons patient cannot / should not exercise: none SOCIAL HISTORY: Occupation: unemployed Work schedule: n/a Lives with: Support system: Who cooks at home/shopping: pt Alcohol: No Smoking: No PAST MEDICAL HISTORY: Past Medical History: Diagnosis Date Lymphoma (CMS/HCC) Multiple sclerosis (CMS/HCC) Thyroid cancer (CMS/HCC) ACTIVE PROBLEM LIST: There is no problem list on file for this patient. PAST SURGICAL HISTORY: Past Surgical History: Procedure Laterality Date SECTION CHOLECYSTECTOMY THYROIDECTOMY PAST FAMILY HISTORY: No family history on file. ACTIVE MEDICATIONS: Current Outpatient Medications on File Prior to Visit Medication Sig Dispense Refill acetaZOLAMIDE (DIAMOX) 250 [...] (two) times a day. for 10 days ARIPiprazole (ABILIFY) 15 mg tablet Take 1 tablet (15 mg total) by mouth 1 (one) time each day. azithromycin (ZITHROMAX) 250 mg tablet Take 1 tablet (250 mg total) by mouth 1 (one) time. buPROPion XL (WELLBUTRIN XL) 300 mg 24 hr tablet Take 1 tablet (300 mg total) by mouth 1 (one) timeeach day in the morning. cdekbdrqhz-rhdopsdzavziw-jdsaftyt (FIORICET, ESGIC) 50-325-40 mg per tablet Take 1 tablet by mouth 2 (two) times a day. cholecalciferol (VITAMIN D-3) 1,250 mcg (50,000 unit) capsule Take 50,000 Int'l Units by mouth 1 (one) time each day. clonazePAM (KlonoPIN) 1 mg tablet Take 1 tablet (1 mg total) by mouth 1 (one) time each day if needed for anxiety. Max Daily Amount: 1 mg FLUoxetine (PROzac) 20 mg capsule Take 1 [...] on top of the tongue if needed. risperiDONE (RisperDAL) 0.25 mg tablet Take 1 tablet (0.25 mg total) by mouth 1 (one) time each day. Tirosint 150 mcg capsule Take 1 capsule (150 mcg total) by mouth 1 (one) time each day. [] tirzepatide, weight loss, (Zepbound) 2.5 mg/0.5 mL injection Inject 0.5 mL (2.5 mg total)under the skin every 7 (seven) days for 4 doses. 2 mL 0 topiramate (TOPAMAX) 50 mg tablet Take 1 tablet (50 mg total) by mouth 2 (two) times a day. Ventolin HFA 90 mcg/actuation inhaler Inhale 2 puffs by mouth if needed. No current facility-administered medications on file prior to visit. ALLERGIES: Allergies Allergen Reactions Morphine Swelling Shellfish Derived Hives Nutrition diagnosis: Class IV obesity related to { Undesirable Food Choices, Food/Nutrition relatedknowledge deficit, Excessive Calorie consumption, and Inadequate Physical Activity as evidenced by A BMI 59.3 Patient-created Goals: 64 oz of water daily - preferably sipping throughout the day (no carbonation or sugar) 70-90 (with injections) grams of protein per day from lean protein sources such as chicken, turkey,fish, beans, etc. Australian yogurt (okios) A minimum of 3 meals per day. Preferably 3 small meals and 2 snacks spaced out over the course of the day (every 3-5 hours) Each meal and snack should include protein Protein shakes can replace a meal or snack, look for 20-30 grams of protein, less than 5 grams of added sugar (orgain, premiere) -Mindfullness (utube) Renita Fry (I am affirmations), Manav Gonzalez (morning affirmations) -Utube workouts 10-20 minutes 3 -4x week -Going for 20 minute walks when weather warms up Literature Provided: Build a healthy plate, Healthy snack handout, Protein content , Goal sheets, and RD contact information Email and postal mail sent Interventions: Discuss the importance of eating at least 3 meals/day and the impact on metabolism, Discussed the importance of including protein with each meal and snack, Discussed the plate method and balanced meal, Discussed carbohydrate foods and impact on blood sugar levels, and Discussed theimportance of drinking enough water Nutrition assessment: Pt is 39 y.o. Female with h/o has a past medical history of Lymphoma (CMS/HCC), Multiple sclerosis (CMS/HCC), and Thyroid cancer (CMS/HCC). Obesity class IV Stage of change/Barriers to understanding: Pt is motivated to make changes to diet and lifestyle and No barriers to understanding Concerns regarding considerations for bariatric surgery: No surgery plan for pt a this time Monitoring/Evaluation: Monitor weight and Monitor progress toward nutrition goals RD to see patient for follow-up in 3 months Visit Time: Total time of the visit was spent face to face in medical nutritional therapy was [address] NUTRITION SERVICES documented in this encounter Plan of Treatment Upcoming Encounters Date Type Department Care Team (Late st Contact Info) Description 11/20/2024 8:45 AM EDT Office Visit Bariatric Surgery - [place] 175 [facility] 120 [place] [phone] Christina Yu MD 175 [facility] 120 [place] [address] 12/11/2024 1:30 PM EDT Nutrition Bariatric Surgery - [place] 175 [facility] 120 [place] [phone] Melissa Upton, RD 175 [facility] 120 [place] [address] documented as of this encounter Visit Diagnoses Diagnosis Class 3 severe obesity without serious comorbidity with body mass index (BMI) of 50.0 to 59.9 in adult, unspecified obesity type- Primary documented in this encounter Care Teams Turbine Blade Assembler Relationship Specialty Start Date End Date Lavon Richardson MD [address] [place] [address] [address] [place], [place] PCP - General Internal Medicine 08/16/24 documented as of this encounter
--- OUTSIDE RECORDS SUMMARY | 2024-09-13 13:36 | XMS_ITS | Clinical Summary ---
Author Organization [facility] Address [address] [place] [address] Phone Care Team Providers Care Appeals Officer Name Role Phone Lavon Richardson MD Primary [...] days for 4 doses. 2 mL 08/17/19 25 025 Active Problems Problem Noted Date Diagnosed Date Class 3 severe obesity witho ut serious comorbidity with body mass index (BMI) of 50.0 to 59.9 in adult 09/11/2024 Encounters Date Type Department Care Team Description 09/11/2024 1:00 PM EDT Telemedicine Bariatric Surgery [address] [phone] Melissa Upton, MARY Class 3 severe obesity without serious comorbidity with body mass index (BMI) of 50.0 to 59.9 in adult, unspecified obesity type (Primary Dx) 08/20/2024 Telephone Bariatric Surgery [address] [phone] Christina Yu MD prior authorization (Zepbound denied) 08/16/2024 1:30 PM EDT Office Visit Bariatric Surgery [address] [phone] Christina Yu MD Class 3 severe obesity due to excess calories with body mass index (BMI) of 50.0 to 59.9 in adult, unspecified whether serious comorbidity present (CMS/HCC V24, CMS/HCC V28) (Primary Dx); Encounter for weight management from Last 3 Months Surgical History Surgery Date Site/Laterality Comments THYROIDECTOMY CHOLECYSTECTOMY SECTION Medical History Medical History Date Comments Multiple sclerosis (CMS/HCC V24, CMS/HCC V28) Thyroid cancer (CMS/HCC V24, CMS/HCC V28) Lymphoma (CMS/HCC V24, CMS/HCC V28) Social History Tobacco Use Types Packs/Day Years [...] (324 lb) 09/11/2024 1:00 PM EDT Height 157.5 cm (5' 2 ) 08/16/2024 2:07 PM EDT Body Mass Index 59.26 08/16/2024 2:07 PM EDT Plan of Treatment Upcoming Encounters Date Type Department Care Team (Late st Contact Info) Description 11/20/2024 8:45 AM EDT Office Visit Bariatric Surgery - [place] [address] [phone] Christina Yu MD [address] [address] 12/11/2024 1:30 PM EDT Nutrition Bariatric Surgery - [place] [address] [phone] Melissa Upton, RD [address] [phone] Health Maintenance Due Date Last Done Comments COVID-19 Vaccine (#1) 1990 Hepatitis A Vaccines (1 of 2 - Risk 2-dose series) 2004 Hepatitis B Vaccines (1 of 3 - 19+ 3-dose series) 2004 Pneumococcal Vaccine: Pediatrics (0 to 5 Years) and At-Risk Patients (6 to 64 Years) (1 of 2 - PCV) 2004 Cervical Cancer Screening: P ap Smear 2006 Cholesterol Screening (Lipid Panel) 05/30/2024 Depression Screening 05/30/2024 HIV Screening 05/30/2024 Hepatitis C Screening 05/30/2024 Social Influencers of Health Screening 05/30/2024 Influenza Vaccine (Season Ended) 2025 03/19/2016, 03/27/2014, 02/20/2013 DTaP,Tdap,and Td Vaccines (4 - Td or [...] age to complete this topic Meningococcal B Vaccine Aged Out No l onger eligible based on patient's age to complete this topic RSV Immunization Patients Under 20 months Aged Out No longer eligible b ased on patient's age to complete this topic Insurance [facility] Care Teams Appeals Officer Relationship Specialty Start Date End Date Lavon Richardson MD [address] [place] [address] [address] PCP - General Internal Medicine 08/16/24
== END 2024-09-13 11:37 | disposition home or self-care (01) ==
LOC: HO.HOS 11:13
PROVIDERS: PCP Internal Medicine; Visit Provider Physical Medicine & Rehabilitation
DX: R25.2 Cramp and spasm (principal)
CPT/HCPCS: 99203

== ENCOUNTER → 2024-09-13 11:12 | Outpatient (BNVA) | payer OTHER, SELFPAY | PROVIDERS: PCP Internal Medicine; Visit Provider Physical Medicine & Rehabilitation | DX: R25.2 Cramp and spasm (principal) | CPT/HCPCS: 99202 ==

== ENCOUNTER 2024-10-23 13:26 | Outpatient (REF) | payer OTHER, SELFPAY ==
[2024-10-23 13:42] LABS: MANUAL DIFF FLAG NO
[2024-10-23 14:32] LABS: Basophils Absolute Auto 0.1 X10*3/uL (0.0-0.2); Basophils Percent Auto 0.4 % (0-2); Eosinophils Absolute Auto 0.3 X10*3/uL (0.0-0.4); Hematocrit 35.1 % (37.0-47.0); Imm Gran Abs Auto 0.06 X10*3/uL (0.00-0.03); Imm Gran Pct Auto 0.5 % (0.0-0.4); Lymphocytes Absolute Auto 2.7 X10*3/uL (1.2-4.9); Mean Corpuscular HGB Conc 31.3 g/dl (31.0-35.0); Mean Corpuscular Hemoglobin 26.3 pg (27.0-33.0); Mean Corpuscular Volume 83.8 fL (80.0-98.0); Mean Platelet Volume 9.5 fL (9.4-12.3); Monocytes Percent Auto 7.7 % (2-11); Neutrophils Absolute Auto 8.4 x10*3/uL (2.0-8.3); Neutrophils Percent Auto 67.4 % (45-73); Platelet Count 385 X10*3/uL (160-400); Red Blood Count 4.19 X10*6/uL (4.20-5.50); Red Cell Distribution Width 17.2 % (11.0-16.0); White Blood Count 12.4 X10*3/uL (4.8-10.8)
[2024-10-23 14:35] LABS: Estimated Average Glucose 117 mg/dL; Hemoglobin A1C 113.9517 umol/L; Hemoglobin A1c % 5.7 % (<6.0); Total Hemoglobin (HGBA1C) 2904.6463 umol/L
--- OUTSIDE RECORDS SUMMARY | 2024-10-23 14:36 | XMS_ITS | Encounter Summary ---
Author Organization [facility] Address [address] [place] [address] Care Team Providers Care Engine Room Operator Name Role Phone Lavon Richardson MD Primary Care Provider [phone] Reason for Visit * Reason Onset Date Comments prior authorization 09/24/2024 Zepbound 2.5 MG Encounter Details Date Type Department Care Team (Late st Contact Info) Description 09/24/2024 Telephone Bariatric Surgery - [place] [address] [place] [phone] Christina Yu MD 175 [facility] 120 [place] [address] prior authorization (Zepbound 2.5 MG) Social History Tobacco Use Types Packs/Day Years [...] encounter Progress Notes * Rani Tay - 09/24/2024 10:00 AM EDT [facility] a new prior auth be sent to insurance and once denied they'd like to schedule a peer to peer with Dr Yu. documented in this encounter Plan of Treatment Upcoming Encounters Date Type Department Care Team (Late st Contact Info) Description 11/20/2024 8:45 AM EDT Office Visit Bariatric Surgery - [place] [address] [phone] Christina Yu MD [address] [phone] 12/11/2024 1:30 PM EDT Nutrition Bariatric Surgery - [place] [address] [phone] Melissa Upton, RD [address] [phone] documented as of this encounter Visit Diagnoses Not on filedocumented in this encounter Care Teams Engine Room Operator Relationship Specialty Start Date End Date Lavon Richardson MD [address] [place] [address] [address] [place], [place] PCP - General Internal Medicine 08/16/24 documented as of this encounter
--- OUTSIDE RECORDS SUMMARY | 2024-10-23 14:36 | XMS_ITS | Clinical Summary ---
Author Organization [facility] Address [address] [place] [address] Phone Care Team Providers Care Ditch Worker Name Role Phone Lavon Richardson MD Primary Care Provider Allergies Active Allergy Reactions Criticality Noted Date Comments Iodine 09/28/2024 Morphine Swelling High 11/18/2017 Shellfish Derived Hives [...] mouth 2 (two) times a day. Active Active Problems Problem Noted Date Diagnosed Date Schizophrenia ([facility] V24, [facility] V28) Severe obesity ([facility] V24, [facility] V28) 2024 PTSD (post-traumatic stress disorder) 09/28/2024 Hepatitis C 09/28/2024 Depression 09/28/2024 Asthma 09/28/2024 Overview (09/28/2024): Poorly controlled. Anxiety 09/28/2024 Grand multiparity with problem Class 3 severe obesity witho ut serious comorbidity with body mass index (BMI) of 50.0 to 59.9 in adult ([facility] V24, [facility] V28) 09/11/2024 Encounters Date Type Department Care Team Description 09/28/2024 Telephone Bariatric Surgery [address] [phone] Christina Yu MD 09/24/2024 Telephone Bariatric Surgery [address] [phone] Christina Yu MD prior authorization (Zepbound 2.5 MG) 09/11/2024 1:00 PM EDT Telemedicine Bariatric Surgery [address] [phone] Class 3 severe obesity without serious comorbidity with body mass index (BMI) of 50.0 to 59.9 in adult, unspecified obesity type ([facility] V24, [facility] V28) (Primary Dx) 08/20/2024 Telephone Bariatric Surgery [address] [phone] Christina Yu MD prior authorization (Zepbound denied) 08/16/2024 1:30 PM EDT Office Visit Bariatric Surgery - [address] [place] [address] Christina Yu MD Class 3 severe obesity due to excess calories with body mass index (BMI) of 50.0 to 59.9 in adult, unspecified whether serious comorbidity present ([facility] V24, [facility] V28) (Primary Dx); Encounter for weight management from Last 3 Months Surgical History Surgery Date Site/Laterality Comments THYROIDECTOMY CHOLECYSTECTOMY SECTION Medical History Medical History Date Comments Multiple sclerosis ([facility] V24, [facility] V28) Thyroid cancer ([facility] V24, [facility] V28) Lymphoma ([facility] V24, [facility] V28) Social History Tobacco Use Types Packs/Day [...] Upcoming Encounters Date Type Department Care Team ([facility] st Contact Info) Description 11/20/2024 8:45 AM EDT Office Visit Bariatric Surgery - [address] [place] [address] Christina Yu MD [address] [address] 12/11/2024 1:30 PM EDT Nutrition Bariatric Surgery - [place] [address] [phone] Melissa Upton, RD [address] [phone] Health Maintenance Due Date Last Done Comments COVID-19 Vaccine (#1) 1990 Hepatitis B Vaccines (1 of 3 - [...] patient's age to complete this topic Insurance [facility] Care Teams Ditch Worker Relationship Specialty Start Date End Date Lavon Richardson MD [address] [place] [address] [address] [place], [place] PCP - General Internal Medicine 08/16/24
[2024-10-23 14:38] LABS: Appearance Urine Clear; Color Urine Yellow; Glucose Urine UA Negative (Negative); Leukocyte Esterase Urine Negative (Negative); Nitrite Urine Negative (Negative); PH 8.5 (5.0-9.0); Specific Gravity - Urine >= 1.030 (1.005-1.025); Urine Blood Negative (Negative); Urine Ketones Trace mg/dL (Negative); Urine Protein Trace mg/dL (Neg-Trace)
[2024-10-23 15:23] LABS: Alanine Aminotransferase 89 U/L (0-31); Albumin Level 3.6 g/dL (3.5-5.0); Alkaline Phosphatase 70 U/L (39-117); Anion Gap 9 (12-20); Aspartate Amino Transferase 56 U/L (5-31); Bilirubin Total 0.2 mg/dL (0.0-1.0); Blood Urea Nitrogen 18 mg/dL (9-16); Calcium 8.3 mg/dL (8.4-10.2); Carbon Dioxide 20 mmol/L (22-29); Chloride 112 mmol/L (96-108); Cholesterol 122 mg/dL (<200); Estimated Glomerular Filt Rate > 60; Glucose Fasting 93 mg/dL (60-99); HDL Cholesterol 41 mg/dL (>40); Iron 32 mcg/dL (30-160); LDL Cholesterol Calculated 63 mg/dL (<100); Percent Iron Saturation 10 % (15-50); Sodium 137 mmol/L (135-145); Total Iron Binding Capacity 334 mcg/dL (228-428); Total Protein 7.6 g/dL (6.5-8.0); Triglycerides 93 mg/dL (<150); Unsaturated Iron Binding 302 ug/dL
[2024-10-23 15:39] LABS: Vitamin B12 324 pg/mL (200-900)
[2024-10-23 15:43] LABS: Free T4 (Free Thyroxine) 1.16 ng/dL (0.71-1.85); Thyroid Stimulating Hormone 0.02 uIU/mL (0.32-4.0); Vitamin D 25-OH Total 27.6 ng/mL (>30)
[2024-10-24 14:08] LABS: HCV Log PCR 6.91 Log IU/mL (NOT DETECTED); HepC Viral Load 8080000 IU/mL (NOT DETECTED)
== END 2024-10-23 13:27 | disposition home or self-care (01) ==
LOC: HO.LAB 13:26
PROVIDERS: PCP Internal Medicine; Visit Provider Internal Medicine
DX: E03.9 Hypothyroidism, unspecified (principal); R30.0 Dysuria; Z86.19 Personal history of other infectious and parasitic diseases; E78.00 Pure hypercholesterolemia, unspecified; R73.01 Impaired fasting glucose; D50.9 Iron deficiency anemia, unspecified; D64.9 Anemia, unspecified; E55.9 Vitamin D deficiency, unspecified; E53.8 Deficiency of other specified B group vitamins
CPT/HCPCS: 36415; 80053; 80061; 81003; 82306; 82607; 82746; 83036; 83540; 84439; 84443; 85025; 87522

== ENCOUNTER 2024-11-06 13:49 | Outpatient (AMB) | payer OTHER, SELFPAY ==
[2024-11-06 13:54] VITALS: BP 118/62; PULSE 100; O2SAT 97; BMI 58.7
--- NOTE | 2024-11-06 13:54 | A.OFFVIS_ITS ---
Vital Signs 11/06/24 13:54 Height 5 ft 2 in Weight 321 lb BMI 58.7 BP 118/62 Blood Pressure Location Rt radial Position Sitting Pulse 100 Pulse Source Pulse Oximeter Pulse Oximetry (%) 97 Oxygen Delivery Method Room Air Intake Visit Reasons: asthma Allergies morphine [MORPHINE] Allergy (Intermediate, Verified 11/06/24 14:00) WBC ELEVATED/ N/V shellfish derived [SHELLFISH DERIVED] Allergy (Intermediate, Verified 11/06/24 14:00) HIVES iodine [IODINE] Allergy (Mild, Verified 11/06/24 14:00) RASH duloxetine Adverse Reaction (Intermediate, Verified 11/06/24 14:00) vomiting HPI HPI asthma: Details: 39-year-old lady, active 15 pack-year smoker, previously followed for severe persistent allergic asthma and environmental allergies previously well controlled on Xolair, Advair, Incruse, and albuterol MDI/DuoNebs presents today to reestablish care. Patient was unable to restart Xolair secondary to transportation issues. She has been using Advair and albuterol MDI/nebs with suboptimal control of her symptoms. [facility] Medical History Anxiety Chronic migraine without aura Cognitive disorder Multiple environmental allergies Morbid obesity with BMI of 60.0-69.9, adult MISAEL (obstructive sleep apnea) GERD (gastroesophageal reflux disease) Anemia Morbid obesity Hypersomnia Loud snoring Blurry vision, bilateral Chronic migraine without aura PTSD (post-traumatic stress disorder) Bipolar depression Depression Morbid obesity with BMI of 45.0-49.9, adult Migraine Bilateral foot pain Fibromyalgia History of thyroid cancer Smoker Papillary thyroid carcinoma Post-surgical hypothyroidism Bilateral lower extremity edema Elevated LFTs Anxiety Asthma Hypothyroidism Cervical lymphadenopathy Vitamin D deficiency Thyroid cancer Surgical History History of esophagogastroduodenoscopy (EGD) Hx of tubal ligation History of surgery Hx of lymph node biopsy Hx of total thyroidectomy (~05/2020) Hx of section Hx of cholecystectomy Family History Father Diabetes Asthma Hypertension Mother Diabetes Hypertension Multiple sclerosis Daughter No problems noted. Daughter No problems noted. Daughter No problems noted. Daughter Deaf Asthma Daughter Deaf Son No problems noted. Son Asthma Son No problems noted. 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 Current occupational exposures/hazards: No Cognitive needs: No Hearing needs: No Vision needs: Yes Female Reproductive History Menstrual Age of Menarche: 12 Review of Systems Const Denies daytime sleepiness, Denies excessive sweating, Denies fatigue, Denies fever(s), Denies lethargy, Denies malaise, Denies night sweats, Denies snoring and Denies weight loss Eyes Denies blurry vision and Denies itchy eyes ENT Denies nasal congestion, Denies post nasal drip, Denies sinus pain, Denies sinus pressure and Denies other ( Thrush) Card Denies chest pain, Denies pedal edema, Denies dyspnea, Denies orthopnea and Denies paroxysmal nocturnal dyspnea Resp Denies cough, Denies hemoptysis, Denies excessive phlegm production, Denies dyspnea, Denies snoring and Denies wheezing GI Denies abdominal pain and Denies heartburn Musc Denies myalgias, Denies arthralgias and Denies joint swelling Skin/Breast Denies rash Neuro Denies memory loss and Denies seizure-like activity Psych Denies abnormal sleep pattern, Denies anxiety and Denies memory loss Endo Denies excessive sweating, Denies fatigue and Denies heat intolerance Parish/Lymph Denies easy bruising Aller/Immun Denies itchy eyes, Denies seasonal rhinorrhea and Denies wheezing Physical Exam Vital Signs: Last Vital Signs Pulse 100 11/06/24 13:54 BP 118/62 11/06/24 13:54 Pulse Ox 97 11/06/24 13:54 Oxygen Delivery Method Room Air 11/06/24 13:54 BMI result Body Mass Index 58.7 Const General: no acute distress and alert Nutritional Appearance: obese Orientation/consciousness: Other orientation findings ( oriented) HEENT Head: Yes atraumatic Eyes General: appearance normal, both eyes and all related structures Sclerae: sclerae normal EOM: EOMs intact bilaterally Neck Neck: Yes supple Lymphatic: no lymphadenopathy noted Resp Effort & Inspection: normal respiratory effort and no use of accessory muscles Auscultation: clear to auscultation bilaterally Cardio Rate: regular rate Rhythm: regular rhythm Heart sounds: no gallops, no murmurs and no rubs Skin General skin exam: other ( warm) Extrem General: No clubbing, No cyanosis and No edema Assessment & Plan Assessment & Plan (1) Severe persistent asthma: Code(s): J45.50 - Severe persistent asthma, uncomplicated Category: Medical Plan: Suboptimally controlled on Advair, duo nebs, and albuterol MDI. Patient is unable to do Xolair secondary to transportation concerns at this time. Will try on Singulair. (2) Environmental allergies: Code(s): Z91.09 - Other allergy status, other than to drugs and biological substances Category: Medical Plan: Suboptimal control without Xolair. Coding Level of Care Code Est Pt Level 4 (19994) Diagnoses Severe persistent asthma J45.50 Environmental allergies Z91.09
--- OUTSIDE RECORDS SUMMARY | 2024-11-06 15:32 | XMS_ITS | Clinical Summary ---
Author Organization [facility] Address [address] [place] [address] Phone Care Team Providers Care House Father Name Role Phone Lavon Richardson MD Primary [...] Problems Problem Noted Date Diagnosed Date Schizophrenia ([facility] V24, [facility] V28[facility] Severe obesity ([facility] V24, [facility] V28) 2024 PTSD (post-traumatic stress disorder) 09/28/2024 Hepatitis C 09/28/2024 Depression 09/28/2024 Asthma 09/28/2024 Overview (09/28/2024): Poorly controlled. Anxiety 09/28/2024 Grand multiparity with problem Class 3 severe obesity witho ut serious comorbidity with body mass index (BMI) of 50.0 to 59.9 in adult ([facility] V24, [facility] V28) 09/11/2024 Encounters Date Type Department Care Team Description 09/28/2024 Telephone Bariatric Surgery [address] [phone] Christina Yu MD 09/24/2024 Telephone Bariatric Surgery [address] [phone] Christina Yu MD prior authorization (Zepbound 2.5 MG) 09/11/2024 1:00 PM EDT Telemedicine Bariatric Surgery [address] [phone] Class 3 severe obesity without serious comorbidity with body mass index (BMI) of 50.0 to 59.9 in adult, unspecified obesity type ([facility] V24, [facility] V28) (Primary Dx) 08/20/2024 Telephone Bariatric Surgery [address] [phone] Christina Yu MD prior authorization (Zepbound denied) 08/16/2024 1:30 PM EDT Office Visit Bariatric Surgery - [address] [place] [address] Christina Yu MD Class 3 severe obesity due to excess calories with body mass index (BMI) of 50.0 to 59.9 in adult, unspecified whether serious comorbidity present ([facility] V24, [facility] V28) (Primary Dx); Encounter for weight management from Last 3 Months Surgical History Surgery Date Site/Laterality Comments THYROIDECTOMY CHOLECYSTECTOMY SECTION Medical History Medical History Date Comments Multiple sclerosis ([facility] V24, [facility] V28) Thyroid cancer ([facility] V24, [facility] V28) Lymphoma ([facility] V24, [facility] V28) Social History Tobacco Use Types Packs/Day [...] Upcoming Encounters Date Type Department Care Team ([facility] st Contact Info) Description 11/20/2024 8:45 AM EDT Office Visit Bariatric Surgery - [address] [place] [address] Christina Yu MD [address] [address] 12/11/2024 1:30 PM EDT Nutrition Bariatric Surgery - [place] [address] [phone] Melissa Upton, RD [address] [address] Health Maintenance Due Date Last [...] patient's age to complete this topic Insurance [facility] PL[facility] Care Teams House Father Relationship Specialty Start Date End Date Lavon Richardson MD [address] [place] [address] Dr [address] [place], [place] PCP - General Internal Medicine 08/16/24
== END 2024-11-06 14:10 | disposition home or self-care (01) ==
LOC: HO.HPS 13:50
PROVIDERS: PCP Internal Medicine; Visit Provider Internal Medicine Pulmonary Disease
DX: J45.50 Severe persistent asthma, uncomplicated (principal); Z91.09 Other allergy status, other than to drugs and biological substances
CPT/HCPCS: 99214

== ENCOUNTER → 2024-11-06 13:49 | Outpatient (BNVA) | payer OTHER, SELFPAY | PROVIDERS: PCP Internal Medicine; Visit Provider Internal Medicine Pulmonary Disease | DX: J45.50 Severe persistent asthma, uncomplicated (principal); Z87.891 Personal history of nicotine dependence; Z91.09 Other allergy status, other than to drugs and biological substances; Z79.899 Other long term (current) drug therapy | CPT/HCPCS: 99212 ==

== ENCOUNTER 2024-11-07 14:35 | Outpatient (AMB) | payer OTHER, SELFPAY ==
--- OUTSIDE RECORDS SUMMARY | 2024-11-07 14:39 | XMS_ITS | Clinical Summary ---
Author Organization [facility] Address [address] [place] [address] Phone Care Team Providers Care Dental Hygiene Instructor Name Role Phone Lavon Richardson MD Primary [...] Problems Problem Noted Date Diagnosed Date Schizophrenia ([facility] V24, [facility] V28) Severe obesity ([facility] V24, [facility] V28) 2024 PTSD (post-traumatic stress disorder) 09/28/2024 Hepatitis C 09/28/2024 Depression 09/28/2024 Asthma 09/28/2024 Overview (09/28/2024): Poorly controlled. Anxiety 09/28/2024 Grand multiparity with problem Class 3 severe obesity witho ut serious comorbidity with body mass index (BMI) of 50.0 to 59.9 in adult ([facility] V24, [facility] V28) 09/11/2024 Encounters Date Type Department Care Team Description 09/28/2024 Telephone Bariatric Surgery [address] [phone] Christina Yu MD 09/24/2024 Telephone Bariatric Surgery [address] [phone] Christina Yu MD prior authorization (Zepbound 2.5 MG) 09/11/2024 1:00 PM EDT Telemedicine Bariatric Surgery [address] [phone] Class 3 severe obesity without serious comorbidity with body mass index (BMI) of 50.0 to 59.9 in adult, unspecified obesity type ([facility] V24, [facility] V28) (Primary Dx) 08/20/2024 Telephone Bariatric Surgery [address] [phone] Christina Yu MD prior authorization (Zepbound denied) 08/16/2024 1:30 PM EDT Office Visit Bariatric Surgery - [address] [place] [address] Christian Yu MD Class 3 severe obesity due to excess calories with body mass index (BMI) of 50.0 to 59.9 in adult, unspecified whether serious comorbidity present ([facility] V24, [facility] V28) (Primary Dx); Encounter for weight management from Last 3 Months Surgical History Surgery Date Site/Laterality Comments THYROIDECTOMY CHOLECYSTECTOMY SECTION Medical History Medical History Date Comments Multiple sclerosis ([facility] V24, [facility] V28) Thyroid cancer ([facility] V24, [facility] V28) Lymphoma ([facility] V24, [facility] V28) Social History Tobacco Use Types Packs/Day [...] Upcoming Encounters Date Type Department Care Team ([facility] st Contact Info) Description 11/20/2024 8:45 AM EDT Office Visit Bariatric Surgery - [address] [place] [address] Christina Yu MD [address] [address] 12/11/2024 1:30 PM EDT Nutrition Bariatric Surgery - [place] [address] [phone] Melissa Upton, RD [address] [phone] Health Maintenance Due Date Last [...] patient's age to complete this topic Insurance [facility] [place] [address] Care Teams Dental Hygiene Instructor Relationship Specialty Start Date End Date Lavon Richardson MD [address] [place] [address] Dr [address] [place], [place] PCP - General Internal Medicine 08/16/24
--- NOTE | 2024-11-07 14:51 | MHC.OFFVIS ---
Vital Signs 11/07/24 14:53 Height 5 ft 2 in Weight 323 lb 2 oz BMI 59.1 Pulse 87 Pulse Source Pulse Oximeter Pulse Oximetry (%) 98 Oxygen Delivery Method Room Air Intake Visit Reasons: 3mon follow-up Intake Note: Patient presents follow up Migraine/MISAEL medication. Compliance in chart(90/90 days, >=4hrs-89 days(99%), Average usage-8hrs 28min, Median leaks 0.7, AHI-0.5). Allergies morphine [MORPHINE] Allergy (Intermediate, Verified 11/07/24 14:58) WBC ELEVATED/ N/V shellfish derived [SHELLFISH DERIVED] Allergy (Intermediate, Verified 11/07/24 14:58) HIVES iodine [IODINE] Allergy (Mild, Verified 11/07/24 14:58) RASH duloxetine Adverse Reaction (Intermediate, Verified 11/07/24 14:58) vomiting HPI Comments Details: 39 y/o female comes here for follow up and evaluation of misael of migraines, muscle spasm, cognitive issues. She is here with her daughter Tg today. MISAEL compliance report 07/2024 to 11/2024 total daily use is 99% and 89/90 days >4 hours avg is 8 hours 25min Press set to [id number] and Leaks of 0.7 to 69.3cmH20 AHI is 0.5/hr The PSG sleep study result was mid degree of sleep apnea with increased severity in REM sleep. HST c/w AHI of 17/hr, REM AHI was 44/hr and oxygen Richard to 77% She underwent titration study and started CPAP at [id number]. Family history + mom has MS. She sleeps well with CPAP, and now her sleep has improved. She had her wisdom tooth extraction in 2010, since this procedure she had residual pain as their was incomplete bone extraction per her dentist, and this led to continuous migraines. She has now completed her course of antibiotics since mid- September 2024. She no longer has migraines, still has headaches 2x a month and lasts 5-10 min, and has decreased in frequency and intensity still taking Topamax 50mg x2 at night as this is a good management therapy. She still forgets tasks, like doing the dishes, calling her mother and her 's name. She has to write things down and this has been ongoing for over 1 year now. She says she has difficulty with word finding, attention and recall. She also reports painful muscle spasms, and EMG/NCS is scheduled, she c/o daily cramps and her entire body locks up. Her back, diaphragm gets triggered by these movement, when she is brushing her teeth, yawns, or breathing, the pain becomes sharper. She saw a pool servicer at [facility] for Fibromyalgia, and she is on gabapentin 800 mg po 3-4 times daily. She is starting a new weight management program with [facility], and was denied zepbound will f/u on November 20, 2024. Her mood can be irritable, fluctuates with bouts of anxiety and depressions she has PTSD. 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 [facility] Medical History Anxiety Chronic migraine without aura Cognitive disorder Multiple environmental allergies Morbid obesity with BMI of 60.0-69.9, adult MISAEL (obstructive sleep apnea) GERD (gastroesophageal reflux disease) Anemia Morbid obesity Hypersomnia Loud snoring Blurry vision, bilateral Chronic migraine without aura PTSD (post-traumatic stress disorder) Bipolar depression Depression Morbid obesity with BMI of 45.0-49.9, adult Migraine Bilateral foot pain Fibromyalgia History of thyroid cancer Smoker Papillary thyroid carcinoma Post-surgical hypothyroidism Bilateral lower extremity edema Elevated LFTs Anxiety Asthma Hypothyroidism Cervical lymphadenopathy Vitamin D deficiency Thyroid cancer Surgical History History of esophagogastroduodenoscopy (EGD) Hx of tubal ligation History of surgery Hx of lymph node biopsy Hx of total thyroidectomy (~05/2020) Hx of section Hx of cholecystectomy Family History Father Diabetes Asthma Hypertension Mother Diabetes Hypertension Multiple sclerosis Daughter No problems noted. Daughter No problems noted. Daughter No problems noted. Daughter Deaf Asthma Daughter Deaf Son No problems noted. Son Asthma Son No problems noted. 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 Current occupational exposures/hazards: No Cognitive needs: No Hearing needs: No Vision needs: Yes Female Reproductive History Menstrual Age of Menarche: 12 Physical Exam Vital Signs: Last Vital Signs Pulse 87 11/07/24 14:53 Pulse Ox 98 11/07/24 14:53 Oxygen Delivery Method Room Air 11/07/24 14:53 BMI result Body Mass Index 59.1 Const General: cooperative and no acute distress Nutritional Appearance: obese Orientation/consciousness: patient oriented x3 Eyes Pupils: Equal, round and reactive pupils present Neuro Other: mallampatti grade 4 Mild postural tremors General: patient oriented x3, tone normal and moves all extremities Cranial nerves: Yes Facial sensation intact/muscles of mastication intact, Yes Equal, round and reactive pupils present, Yes Bilaterally intact EOM present, Yes Nystagmus not present and Yes Normal facial strength present Gait exam (Neuro): Antalgic gait present Motor exam (neuro): 5/5 motor strength present throughout and Normal motor muscle tone present throughout Coordination: [id number] test normal Assessment & Plan Assessment & Plan (1) MISAEL (obstructive sleep apnea): Code(s): G47.33 - Obstructive sleep apnea (adult) (pediatric) Category: Medical (2) Cognitive disorder: Comment: will continue to monitor - [facility] f/u Code(s): F09 - Unspecified mental disorder due to known physiological condition Category: Medical (3) Anxiety: Code(s): F41.9 - Anxiety disorder, unspecified Category: Medical (4) Fatigue: Code(s): R53.83 - Other fatigue Category: Medical Qualifiers: Fatigue type: chronic, unspecified Qualified Code(s): R53.82 - Chronic fatigue, unspecified Plan MISAEL Sleep apnea, CPAP usage and sleep apnea, she is compliance is monitored, well managed. Cognitive decline MMSE was normal, she reports cognitive problems probably due to poorly controlled mood or other metabolic issues. Refer to psychiatry for management of irritable mood, depression and anxiety. F/u Rheumatology for fibromyalgia and muscle spasms Headaches continue topomax 100mg PO daily. Diamox trialed on 250mg PO BID and no effective, as patient was not aware she was to take this med twice a day, patient education provided. Patient Instructions: Sleep Hygiene provided: set a scheduled bedtime and wake time to help regulate the circadian rhythm and balance the release of pituitary hormones. Sleep in a dark room, temperatures below 68 degrees, and no devices n bed. Limit caffeinated products 6 hours prior to bed, and limit fluids 2-4 hours prior to bed. Gentle night yoga, diffusing essential oils, and playing soft music can be relaxing. Coding Level of Care Code Est Pt Level 4 (74323) Complex EM visit Add On G2211 Diagnoses MISAEL (obstructive sleep apnea) G47.33 Cognitive disorder F09 Anxiety F41.9 Chronic fatigue R53.82 Fatigue type: chronic, unspecified Time Spent (min) 35 Comment Improving
[2024-11-07 14:53] VITALS: PULSE 87; O2SAT 98; BMI 59.1
== END 2024-11-07 15:58 | disposition home or self-care (01) ==
LOC: HO.HSMS 14:36
PROVIDERS: PCP Internal Medicine; Visit Provider Physician Assistant Medical
DX: G47.33 Obstructive sleep apnea (adult) (pediatric) (principal); R41.89 Other symptoms and signs involving cognitive functions and awareness; F41.9 Anxiety disorder, unspecified; R53.82 Chronic fatigue, unspecified
CPT/HCPCS: 99214; G2211

== ENCOUNTER → 2024-11-07 14:35 | Outpatient (BNVA) | payer OTHER, SELFPAY | PROVIDERS: PCP Internal Medicine; Visit Provider Physician Assistant Medical | DX: G47.33 Obstructive sleep apnea (adult) (pediatric) (principal); R53.82 Chronic fatigue, unspecified; F09 Unspecified mental disorder due to known physiological condition; F41.9 Anxiety disorder, unspecified | CPT/HCPCS: 99212 ==

== ENCOUNTER 2024-11-22 08:34 | Outpatient (REF) | payer OTHER, SELFPAY ==
[2024-11-22 13:25] LABS: CT PCR NOT DETECTED (Not Detect.); NG PCR NOT DETECTED (Not Detect.)
[2024-11-26 13:56] LABS: HPV Genotype 16 Negative (Negative); HPV Genotype 18 Negative (Negative); HPV High Risk Negative (Negative)
== END 2024-11-22 08:35 | disposition home or self-care (01) ==
LOC: HO.LNP 08:34
PROVIDERS: PCP Internal Medicine; Visit Provider Obstetrics & Gynecology
DX: Z01.419 Encounter for gynecological examination (general) (routine) without abnormal findings (principal); R32 Unspecified urinary incontinence; R10.2 Pelvic and perineal pain
CPT/HCPCS: 81002; 81025; 87086; 87491; 87591; 87626; 88175; 99212

== ENCOUNTER 2024-11-22 08:34 | Outpatient (AMB) | payer OTHER, SELFPAY ==
--- NOTE | 2024-11-22 08:35 | MHC.OFFVIS ---
Vital Signs 11/22/24 08:45 Height 5 ft 2 in Weight 324 lb BMI 59.3 BP 118/72 Intake Visit Reasons: ACTIVITY DIRECTOR annual exam/DO NOT RS Intake Note: Patient complains of pelvic pressure for a year and a half. Says feels like I want to give Tubular Riveter: Tubular Riveter Present (Casi) Accompanied by: Self / Same As Patient Allergies morphine (MORPHINE) Allergy (Intermediate, Verified 11/07/24 14:58) WBC ELEVATED/ N/V shellfish derived (SHELLFISH DERIVED) Allergy (Intermediate, Verified 11/07/24 14:58) HIVES iodine (IODINE) Allergy (Mild, Verified 11/07/24 14:58) RASH duloxetine Adverse Reaction (Intermediate, Verified 11/07/24 14:58) vomiting HPI Comments Details: Presenting for annual exam. No complaints. 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 Anxiety Chronic migraine without aura Cognitive disorder Multiple environmental allergies Morbid obesity with BMI of 60.0-69.9, adult MISAEL (obstructive sleep apnea) GERD (gastroesophageal reflux disease) Anemia Morbid obesity Hypersomnia Loud snoring Blurry vision, bilateral Chronic migraine without aura PTSD (post-traumatic stress disorder) Bipolar depression Depression Morbid obesity with BMI of 45.0-49.9, adult Migraine Bilateral foot pain Fibromyalgia History of thyroid cancer Smoker Papillary thyroid carcinoma Post-surgical hypothyroidism Bilateral lower extremity edema Elevated LFTs Anxiety Asthma Hypothyroidism Cervical lymphadenopathy Vitamin D deficiency Thyroid cancer Surgical History History of esophagogastroduodenoscopy (EGD) Hx of tubal ligation History of surgery Hx of lymph node biopsy Hx of total thyroidectomy (~05/2020) Hx of section Hx of cholecystectomy Family History Father Diabetes Asthma Hypertension Mother Diabetes Hypertension Multiple sclerosis Daughter No problems noted. Daughter No problems noted. Daughter No problems noted. Daughter Deaf Asthma Daughter Deaf Son No problems noted. Son Asthma Son No problems noted. 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 Current occupational exposures/hazards: No Cognitive needs: No Hearing needs: No Vision needs: Yes Female Reproductive History Menstrual Age of Menarche: 12 Total pregnancies: 10 Full term: 8 Date of last pap smear: 08/24/22 (negative pap smear, negative hpv ) Date of Mammogram: 11/23/21 (bi rad 1) Review of Systems Const All systems reviewed & are unremarkable except as noted in HPI and below Card Reports as per HPI Resp Reports as per HPI GI Reports as per HPI and Reports no additional complaints Reports as per HPI Physical Exam Vital Signs: Last Vital Signs BP 118/72 11/22/24 08:45 BMI result Body Mass Index 59.3 Const General: cooperative, healthy appearing and comfortable Chest Chest palpation & inspection: normal inspection of the chest and normal palpation of entire chest wall Breast/axilla inspection: normal inspection of the breasts and normal inspection of the axillae Breast/axilla palpation: normal palpation of the breasts, normal palpation of the axillae and no axillary lymphadenopathy Resp Effort & Inspection: normal respiratory effort Auscultation: clear to auscultation bilaterally Percussion: percussion normal Cardio Palpation: normal PMI Rate: regular rate Rhythm: regular rhythm Heart sounds: no murmurs and no rubs Peripheral pulses: Peripheral pulses 2+ throughout GI Inspection: Yes normal to inspection Palpation (GI): Soft to palpation, nontender, no guarding, not rigid and No hepatosplenomegaly present Percussion: Yes normal to percussion Auscultation: normal bowel sounds Rectal Exam - Female: deferred General: Yes bladder normal to palpation External Female Exam: No lesion Speculum Exam - Vagina: normal appearance of the vagina, normal palpation, normal vaginal discharge and not erythematous Speculum Exam - Cervix: normal appearance of the cervix and normal palpation Bimanual exam- vagina & uterus: normal bimanual exam, normal palpation, uterine size normal, bladder normal to palpation, consistency normal and normal palpation Bimanual Exam- Adnexa, other: normal adnexae, no masses and no tenderness Assessment & Plan Assessment & Plan (1) Well woman exam: Comment: ELIZABETH 3 status post LEEP cone with negative margins in 02/25 08/26 co testing negative Code(s): Z01.419 - Encounter for gynecological examination (general) (routine) without abnormal findings Category: Medical Plan: Cotesting done. Mammogram ordered after 03/16/2025. Counseled the patient about the recommended dietary allowance of 1000 mg of Calcium & 600 IU of vitamin D. The patient was instructed to perform monthly self-breast exams and to schedule an annual exam in a year; All questions answered and the patient verbalized understanding. Instructed the patient to schedule annual exam in a year (2) Pelvic pressure in female: Code(s): R10.2 - Pelvic and perineal pain Category: Medical Plan: Urine dip was negative for microscopic hematuria, positive for leukocyte send urine for culture and urine test done in the office was negative. GC and chlamydia taken and pelvic ultrasound ordered. Discussed with the patient the differential diagnosis of pelvic pressure including but not limited to adnexal, uterine masses, pelvic infections (PID), GI the (Irritable bowel syndrome, diverticulitis, others), musculoskeletal, myofascial pain abdominal wall , adhesions, endometriosis, psychological and others causes. Will check results and treat accordingly. All questions answered, the patient verbalized understanding. Instructed the patient to schedule an ultrasound and a follow-up appointment in 2 weeks. All questions answered, the patient verbalized understanding and agreed with the plan. (3) Urine incontinence: Code(s): R32 - Unspecified urinary incontinence Category: Medical Plan: Discussed with the patient the different types of Urine incontinence, stress urinary incontinence, intrinsic sphincter deficiency, overactive bladder and its work up. We will refer to Urology. All questions answered, the patient verbalized understanding. Orders: Orders Pap Smear Today Z01.419 - Encounter for gynecological examination (general) (routine) without abnormal findings HPV High risk Today Z01.419 - Encounter for gynecological examination (general) (routine) without abnormal findings MM tomosynthesis screening BI Today Z12.31 - Encounter for screening mammogram for malignant neoplasm of breast US pelvic and transvaginal Today R10.2 - Pelvic and perineal pain CT NG by PCR Today Z01.419 - Encounter for gynecological examination (general) (routine) without abnormal findings Referrals Urology Referral R32 - Unspecified urinary incontinence Coding Level of Care Code Est Pt Level 3 (60364) Est Pt Prev Care 18-39y(81937) Diagnoses Well woman exam Z01.419 Pelvic pressure in female R10.2 Urine incontinence R32
[2024-11-22 08:45] VITALS: BP 118/72; BMI 59.3
--- OUTSIDE RECORDS SUMMARY | 2024-11-22 08:51 | XMS_ITS | Clinical Summary ---
Author Organization [facility] Address [address] [place] [address] Phone Care Team Providers Care Button Tufter Name Role Phone Lavon Richardson MD Primary Care Provider [phone] Allergies Active Allergy Reactions Criticality Noted Date [...] Problems Problem Noted Date Diagnosed Date Schizophrenia ([facility] V24, [facility] V28) Severe obesity ([facility] V24, [facility] V28) 2024 PTSD (post-traumatic stress disorder) 09/28/2024 Hepatitis C 09/28/2024 Depression 09/28/2024 Asthma 09/28/2024 Overview (09/28/2024): Poorly controlled. Anxiety 09/28/2024 Grand multiparity with problem Class 3 severe obesity witho ut serious comorbidity with body mass index (BMI) of 50.0 to 59.9 in adult ([facility] V24, [facility] V28) 09/11/2024 Encounters Date Type Department Care Team Description 11/20/2024 8:45 AM EDT Office Visit Bariatric Surgery [address] [phone] Christina Yu MD Class 3 severe obesity due to excess calories with body mass index (BMI) of 60.0 to 69.9 in adult, unspecified whether serious comorbidity present ([facility] V24, [facility] V28) (Primary Dx) 09/28/2024 Telephone Bariatric Surgery - [address] [phone] Christina Yu MD 09/24/2024 Telephone Bariatric Surgery [address] [phone] Christina Yu MD prior authorization (Zepbound 2.5 MG) 09/11/2024 1:00 PM EDT Telemedicine Bariatric Surgery [address] [phone] Melissa Upton, MARY Class 3 severe obesity without serious comorbidity with body mass index (BMI) of 50.0 to 59.9 in adult, unspecified obesity type ([facility] V24, [facility] V28) (Primary Dx) from Last 3 Months Surgical History Surgery Date Site/Laterality Comments THYROIDECTOMY CHOLECYSTECTOMY SECTION Medical History Medical History Date Comments Multiple sclerosis ([facility] V24, [facility] V28) Thyroid cancer ([facility] V24, [facility] V28) Lymphoma ([facility] V24, [facility] V28) Social History Tobacco Use Types [...] Sign Reading Time Taken Comments Blood Pressure 122/85 11/20/2024 8:57 AM EDT Pulse 92 11/20/2024 8:57 AM EDT Temperature 36.6 C (97.8 F) 11/20/2024 8:57 AM EDT Respiratory Rate 22 05/30/2024 5:07 AM EST Oxygen Saturation 96% 05/30/2024 5:07 AM EST Inhaled Oxygen Concentration - - Weight 149 kg (329 lb) 11/20/2024 8:57 AM EDT Height 157.5 cm (5' 2 ) 11/20/2024 8:57 AM EDT Body Mass Index 60.17 11/20/2024 8:57 AM EDT Plan of Treatment Upcoming Encounters Date Type Department Care Team (Late st Contact Info) Description 11/22/2024 1:30 PM EDT Telemedicine Bariatric Surgery - [place] [address] [facility] [address] [place] [phone] Melissa Upton, RD [address] [facility] [address] [place] [phone] Health Maintenance Due Date Last Done [...] patient's age to complete this topic Insurance [facility] [employer] Care Teams Button Tufter Relationship Specialty Start Date End Date Lavon Richardson MD [address] [place] [address] [address] Moreland PCP - General Internal Medicine 08/16/24
== END 2024-11-22 09:21 | disposition home or self-care (01) ==
PROVIDERS: PCP Internal Medicine; Visit Provider Obstetrics & Gynecology
DX: Z01.419 Encounter for gynecological examination (general) (routine) without abnormal findings (principal); R10.2 Pelvic and perineal pain; R32 Unspecified urinary incontinence; Z32.02 Encounter for pregnancy test, result negative; R35.0 Frequency of micturition
CPT/HCPCS: 99213; 99459

== ENCOUNTER 2025-01-14 09:59 | Outpatient (AMB) | payer OTHER, SELFPAY ==
--- NOTE | 2025-01-14 10:01 | MHC.OFFVIS ---
Vital Signs 01/14/25 10:02 Height 5 ft 2 in Weight 334 lb 10.587 oz BMI 61.2 BP 110/78 Blood Pressure Location Lt brachial Position Sitting Pulse 88 Pulse Source Pulse Oximeter Pulse Oximetry (%) 99 Oxygen Delivery Method Room Air Intake Visit Reasons: F/U Thyroid Cancer/Lump back of neck R side Intake Note: Patient present today for Thyroid Cancer and a Lump on back of neck R side. 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 Accompanied by: Self / Same As Patient Allergies morphine (MORPHINE) Allergy (Intermediate, Verified 01/14/25 10:18) WBC ELEVATED/ N/V shellfish derived (SHELLFISH DERIVED) Allergy (Intermediate, Verified 01/14/25 10:18) HIVES iodine (IODINE) Allergy (Mild, Verified 01/14/25 10:18) RASH duloxetine Adverse Reaction (Intermediate, Verified 01/14/25 10:18) vomiting Medication List - Last Reconciled 01/14/25 by Melyssa Cifuentes MD acetazolamide 250 mg PO BID bupropion HCl XL 300 mg PO QAM 30 days dmtvcyuxln-gtsztairtcmai-oqmk 50-325-40 mg 1 tab PO Q6-8H PRN 30 days cholecalciferol (vitamin D3) (Vitamin D3) 25 mcg PO DAILY clonazepam (Klonopin) 1 mg PO DAILY PRN 30 days fluoxetine 20 mg PO DAILY 30 days fluticasone propion-salmeterol 500-50 mcg/dose (Advair Diskus) 1 inh inhalation BID 30 days gabapentin 800 mg PO QID 30 days hydrocortisone 2.5% 1 appl topical BID PRN hydroxyzine HCl 50 mg PO TID PRN 30 days ipratropium-albuterol 0.5 mg-3 mg(2.5 mg base)/3 mL 3 mL inhalation Q4-6H PRN 30 days iron,carbonyl-vitamin C 65 mg iron- 125 mg (Vitron-C) 1 tab PO DAILY levothyroxine 175 mcg PO DAILY methocarbamol 500 mg PO TID PRN montelukast 10 mg PO DAILY [NEBULIZER Use as directed as needed] omeprazole 40 mg PO DAILY 90 days pantoprazole 40 mg PO DAILY tizanidine 4 mg PO TID PRN 30 days topiramate 100 mg (2 x 50 mg) PO BEDTIME 30 days MDD 100mg Ventolin HFA 90 mcg/actuation (albuterol sulfate) 2 puffs inhalation Q4-6H PRN NS HPI Comments Details: 39-year-old female with past medical history significant for schizophrenia, multifocal classic PTC 2.6 cm largest lesion, status post total thyroidectomy 05/09/2020, with Dr. Soledad Cosme, with pathology showing negative margins, no extrathyroidal extension, no angio or lymphatic invasion, 0/8 lymph nodes positive for metastatic disease, AJCC stage I, JAHAIRA initial low risk of recurrence, who has had poor compliance with follow up and missed multiple appointments in the past per the chart. Here today for follow up of PTC. History of PTC in detail 2019: Noted a lump in her neck which she stated was growing. Prompted her PCP to check a CT scan of the neck which revealed a 3.2 cm thyroid mass as well as a 1.8 cm prominent level 2A cervical lymph nodes bilaterally. Thyroid ultrasound revealed 2.7 cm left midpole thyroid nodule and she was referred to Endocrine. 03/06/2020: FNA biopsy of the left midpole 2.7 cm nodule with cytology revealing papillary thyroid cancer (Pawling category 6) 05/09/2020: Status post total thyroidectomy with Dr. Soledad Cosme at [facility], with pathology showing multifocal 2.6 cm classic PTC in the left lobe/isthmus, and a micro PTC in the right superior/mid lobe with negative margins, no extrathyroidal extension, no angio or lymphatic invasion. 0/8 lymph nodes positive for metastatic disease. Left inferior parathyroid gland was also excised. She did not undergo I 131 remnant ablation. 02/04/2021: Thyrogen stimulated labs, TSH greater than 100, TG less than 0.1 with negative TG antibodies. 09/14/2021: Ultrasound head and neck revealed 2 of normal-appearing lymph nodes, a left level 1B, 1.6 cm lymph node which is lobulated and contains no fatty hilum, and also a left level 2, 2.2 cm lymph node which is also lobulated. 10/28/2021: FNA biopsy of these lymph nodes with cytology negative for malignant cells and TG washout negative. 02/13/2021: Thyrogen stimulated whole-body scan revealed only physiologic uptake. 07/07/2023: Ultrasound head and neck (I reviewed the images myself) mostly showed normal-appearing lymph nodes with the exception of a left level 1B lymph node measuring 2.2 X 1 X 1.8 cm with a measurement of 1 cm in the anterior-posterior axis, which appears lobulated, cystic, however this has been biopsied before and was benign. Otherwise normal-appearing lymph nodes noted. Postoperatively she was started on levothyroxine 150 mcg p.o. daily. She however did have poor adherence to levothyroxine. Her dose was increased to 200 mcg p.o. daily, however with good adherence subsequently labs showed hyperthyroidism so dose was decreased to 175 mcg p.o. daily. She was on this dose back in February 2022 when she had come for her last follow up. At that appointment dose of levothyroxine was decreased to 150 mcg daily. 10/27/2023: TSH 2.03 Today: Currently on levothyroxine 150 mcg daily on empty stomach , between 6 to 8 AM and doesnt eat breakfast, endorses good adherence Interval history Missed her 3 month appt in August 2024, now returning for followup , guess I couldnt make it reports fatigue No changes to bowel movements no difficulty swallowing 06/05/24: TSH 4.84, free T4-1, TG less than 0.1, TG antibody less than 06 June 2024 levothyroxine increased to 175 mcg daily 06/28/2024: TSH 0.53, free T4 1.29 07/11/2024: TSH 0.51 06/19/2024: Ultrasound of the neck showed normal-appearing bilateral cervical lymph nodes 08/07/2024: Repeat ultrasound of the neck because she had in area of palpable concern in the right neck, which was consistent with fat deposition 10/23/2024: TSH 0.02, free T4 1.16, currently on levothyroxine 175 mcg daily Obesity: not addressed today BMI 61.3 kg per m2 Gained 100 lbs since 2019 and 60 lbs since 10/2023 Doesnt exercise Cancelled bariatric surgery follow up due to anxiety , was following up with them up until October 2023. No change in ring size or shoe size. No easy bruising, no facial plethora. Physical exam General: sitting comfortably in no acute distress HEENT: normocephalic/atraumatic,moist oral mucosa Neck: supple, symmetrical, no dorsocervical or supraclavicular fat pads Cardiac: normal heart sounds Pulm: normal breath sounds B/L, no added breath sounds Abd: not distended, no tenderness Extremities: no edema, no signs of myxedema Neuro: AAO x3, Speech: normal, no facial droop, moving all 4 extremities Laboratory Tests 01/07/20 07/24/20 11/13/20 15:30 13:15 11:54 25-OH Vitamin D Total Free T4 0.94 < 0.40 L < 0.40 L TSH 71.75 H Thyroglobulin Thyroglobulin Antibody 11/13/20 11/13/20 01/01/21 11:54 11:54 12:22 25-OH Vitamin D Total Free T4 < 0.40 L 2.03 H TSH > 100.00 H > 100.00 H 0.09 L Thyroglobulin <0.1 L Thyroglobulin Antibody <1 02/03/21 02/04/21 06/04/21 09:40 08:35 13:53 25-OH Vitamin D Total Free T4 TSH 79.74 H > 100.00 H 0.03 L Thyroglobulin <0.1 L <0.1 L Thyroglobulin Antibody <1 <1 07/06/21 08/13/21 10/19/21 14:06 14:44 15:51 25-OH Vitamin D Total Free T4 1.12 0.82 1.50 TSH 2.67 16.09 H 0.03 L Thyroglobulin <0.1 L <0.1 L Thyroglobulin Antibody <1 <1 12/22/21 02/02/22 02/17/22 12:23 10:42 13:47 25-OH Vitamin D Total Free T4 1.56 1.37 1.71 TSH 0.04 L 0.04 L 0.02 L Thyroglobulin Thyroglobulin Antibody 04/20/22 07/28/22 09/27/22 10:18 14:41 14:16 25-OH Vitamin D Total Free T4 1.35 1.22 TSH 0.45 1.09 0.66 Thyroglobulin Thyroglobulin Antibody 02/17/23 07/07/23 07/30/23 10:07 14:44 09:45 25-OH Vitamin D Total Free T4 1.21 1.16 TSH 0.60 2.41 1.88 Thyroglobulin <0.1 <0.1 Thyroglobulin Antibody <1 <1 10/27/23 11:55 25-OH Vitamin D Total 57.7 Free T4 TSH 2.03 Thyroglobulin Thyroglobulin Antibody Laboratory Tests 06/05/24 06/28/24 07/11/24 09:07 08:53 10:40 TSH 4.84 H 0.53 0.51 Free T4 1.00 1.29 Thyroglobulin <0.1 Thyroglobulin Antibody <1 10/23/24 13:41 TSH 0.02 L Free T4 1.16 Thyroglobulin Thyroglobulin Antibody Ultrasound soft tissue neck 08/07/24 Comparison: 07/07/2023 Findings: Ultrasound evaluation was performed of the right posterolateral neck soft tissues in an area of palpable concern. There is no mass or fluid collection. There are no visualized lymph nodes. Impression: 1. No obvious abnormality. This document has been electronically signed by: Maira Leon MD on 08/07/2024 15:23:43 US non-Thyroid 06/19/24 Comparison: None available Findings: Status post complete thyroidectomy. No residual thyroid tissue identified. There are morphologically normal lymph nodes in the bilateral cervical chain, the largest in the level 2 region bilaterally which is a normal finding. Impression: 1. Status post thyroidectomy without residual thyroid tissue. Morphologically normal bilateral cervical lymph nodes. US SOFT TISSUE HEAD/NECK 07/07/23 CLINICAL INFORMATION: Personal history of malignant neoplasm of thyroid. COMPARISON: Ultrasound-guided left neck lymph node biopsy 10/28/2021. Ultrasound soft tissue head/neck 09/14/2021. Thyroid ultrasound 11/30/2019. TECHNIQUE: Linear transducer du-scale and color Doppler examination of the thyroid bed and surrounding soft tissue. FINDINGS: THYROID BED: Prior thyroidectomy. No residual thyroid tissue demonstrated in the thyroid bed. No cystic or solid nodules demonstrated in the thyroid bed. RIGHT NECK SOFT TISSUES: Right level 2 lymph node measures 1.4 x 0.8 x 0.7 cm. Right level 3 lymph node measures 0.9 x 0.5 x 0.9 cm. These lymph nodes appear similar to the prior study. LEFT NECK SOFT TISSUES: Left level 1B lymph node measures 2.2 x 1.0 x 1.8 cm Left level 2 lymph node measures 1.1 x 0.4 x 0.8 cm. Left level 3 lymph node measures 0.9 x 0.5 x 0.8 cm. Left level 4 lymph node measures 0.7 x 0.3 x 0.6 cm. These lymph nodes appear similar to the prior study. US/US soft tiss head and/or neck IMPRESSION: Allowing for slight differences in patient positioning and examination technique, there has been no significant interval change in bilateral cervical lymph nodes. No residual thyroid tissue or new abnormality in the thyroidectomy bed. US SOFT TISSUE HEAD/NECK 09/14/21 CLINICAL INFORMATION: Malignant neoplasm of thyroid. COMPARISON: Ultrasound thyroid soft tissues neck 11/30/2019. TECHNIQUE: Ultrasound of the neck soft tissues is performed with high- frequency du-scale imaging and color Doppler. FINDINGS: THYROID BED: Prior thyroidectomy. No residual thyroid tissue demonstrated in the thyroid bed. No cystic or solid nodules demonstrated in the thyroid bed. RIGHT NECK SOFT TISSUES: There are 4 right cervical lymph nodes. 2 lymph nodes demonstrate abnormal ultrasound pathology. Level 3: 1.7 x 0.5 x 1.2 cm. Abnormal nain architecture with thick cortex and slitlike or absent hilum. Level 3: 0.9 x 0.5 x 0.7 cm. Abnormal nain architecture with slitlike or absent hilum. There are 2 right level 3 lymph nodes that measure 1.7 x 0.3 x 0.7 cm and 1 x 0.3 x 0.8 cm. Normal in size and demonstrate normal ultrasound morphology. LEFT NECK SOFT TISSUES: There are left cervical lymph nodes. 3 lymph nodes demonstrate abnormal ultrasound morphology. Level 1B: 1.6 x 1 x 1.6 cm. Abnormal nain architecture with thick nodular cortex and irregular margins. Level 1B: 0.9 x 0.6 x 0.8 cm. Abnormal nain architecture with thickened cortex. Level 2:2.2 x 1.2 x 2.2 cm. Abnormal nain architecture with thick cortex and slitlike or absent hilum. There is a level 2 lymph node that measures 1.3 x 0.5 x 1 cm and demonstrate normal ultrasound morphology. There is a level 3 lymph node that measured 1.1 x 0.4 x 0.7 cm and demonstrates normal ultrasound morphology. US/US soft tiss head and/or neck IMPRESSION: No residual thyroid tissue or nodule is seen. Bilateral cervical lymph nodes as described above. [facility] Medical History (Updated 11/22/24 @ 09:06 by Curtis Torrez MD) ELIZABETH III (cervical intraepithelial neoplasia grade III) with severe dysplasia Anxiety Chronic migraine without aura Cognitive disorder Multiple environmental allergies Morbid obesity with BMI of 60.0-69.9, adult MISAEL (obstructive sleep apnea) GERD (gastroesophageal reflux disease) Anemia Morbid obesity Hypersomnia Loud snoring Blurry vision, bilateral Chronic migraine without aura PTSD (post-traumatic stress disorder) Bipolar depression Depression Morbid obesity with BMI of 45.0-49.9, adult Migraine Bilateral foot pain Fibromyalgia History of thyroid cancer Smoker Papillary thyroid carcinoma Post-surgical hypothyroidism Bilateral lower extremity edema Elevated LFTs Anxiety Asthma Hypothyroidism Cervical lymphadenopathy Vitamin D deficiency Thyroid cancer Surgical History History of esophagogastroduodenoscopy (EGD) Hx of tubal ligation History of surgery Hx of lymph node biopsy Hx of total thyroidectomy (~05/2020) Hx of section Hx of cholecystectomy Family History Father Diabetes Asthma Hypertension Mother Diabetes Hypertension Multiple sclerosis Daughter No problems noted. Daughter No problems noted. Daughter No problems noted. Daughter Deaf Asthma Daughter Deaf Son No problems noted. Son Asthma Son No problems noted. 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 Current occupational exposures/hazards: No Cognitive needs: No Hearing needs: No Vision needs: Yes Female Reproductive History Menstrual Age of Menarche: 12 Physical Exam Vital Signs: Last Vital Signs Pulse 88 01/14/25 10:02 BP 110/78 01/14/25 10:02 Pulse Ox 99 01/14/25 10:02 Oxygen Delivery Method Room Air 01/14/25 10:02 BMI result Body Mass Index 61.2 Assessment & Plan Assessment & Plan (1) History of thyroid cancer: Code(s): Z85.850 - Personal history of malignant neoplasm of thyroid Category: Medical Plan: 39-year-old female with past medical history significant for schizophrenia, multifocal classic PTC 2.6 cm largest lesion, status post total thyroidectomy 05/09/2020, with Dr. Soledad Cosme, with pathology showing negative margins, no extrathyroidal extension, no angio or lymphatic invasion, 0/8 lymph nodes positive for metastatic disease, AJCC stage I (pT2), JAHAIRA initial low risk of recurrence, who has had poor compliance with follow up and missed multiple appointments in the past per the chart. Her stimulated TG levels have been undetectable, with last 1 from 02/04/2021, when she underwent Thyrogen stimulated whole-body scan, TSH greater than 100, TG undetectable. Whole-body scan only showed physiologic uptake. Ultrasound of the neck from 2021 did identify abnormal lymph nodes in the left side, however these were biopsied subsequently and no malignancy detected with negative thyroglobulin washout. Most recent thyroid ultrasound from jun 2024 I reviewed the images myself showed mostly normal-appearing lymph nodes bilaterally. 06/05/24: TSH 4.84, free T4-1, TG less than 0.1, TG antibody less than 06 June 2024 levothyroxine increased to 175 mcg daily 10/23/2024: TSH 0.02, free T4 1.16, currently on levothyroxine 175 mcg daily At this point I would classify her as JAHAIRA excellent response to therapy based on undetectable tumor markers per last follow up as well as negative lymph node biopsies. Goal TSH would be 0.5-2. Her TSH from labs from October 2024 was lower, however I would like to repeat labs now with tumor markers before we adjust the dose of levothyroxine. Plan: -ordered TSH, free T4, TG and TG antibodies to be done now, we will reach out with results -continue levothyroxine 175 mcg daily -next ultrasound of the neck due August 2025 prior to follow up -TSH goal 0.5-2 -follow up in August 2025 (2) Post-surgical hypothyroidism: Code(s): E89.0 - Postprocedural hypothyroidism Category: Medical Plan: 06/05/24: TSH 4.84, free T4-1, TG less than 0.1, TG antibody less than 06 June 2024 levothyroxine increased to 175 mcg daily 10/23/2024: TSH 0.02, free T4 1.16, currently on levothyroxine 175 mcg daily Goal TSH would be 0.5-2. Her TSH from labs from October 2024 was lower, however I would like to repeat labs now with tumor markers before we adjust the dose of levothyroxine. Plan: -ordered TSH, free T4, TG and TG antibodies to be done now, we will reach out with results -continue levothyroxine 175 mcg daily Plan I spent 30 minutes in reviewing the record, seeing the patient and documenting in the medical record. Orders: Orders Thyroid Stimulating Hormone Today E03.9 - Hypothyroidism, unspecified, E89.0 - Postprocedural hypothyroidism, Z85.850 - Personal history of malignant neoplasm of thyroid Free T4 (Free Thyroxine) Today E03.9 - Hypothyroidism, unspecified, E89.0 - Postprocedural hypothyroidism, Z85.850 - Personal history of malignant neoplasm of thyroid Thyroglobulin Today E03.9 - Hypothyroidism, unspecified, E89.0 - Postprocedural hypothyroidism, Z85.850 - Personal history of malignant neoplasm of thyroid Thyroglobulin Antibodies Today E03.9 - Hypothyroidism, unspecified, E89.0 - Postprocedural hypothyroidism, Z85.850 - Personal history of malignant neoplasm of thyroid Thyroglobulin Tumor Marker Today E03.9 - Hypothyroidism, unspecified, E89.0 - Postprocedural hypothyroidism, Z85.850 - Personal history of malignant neoplasm of thyroid US soft tiss head and/or neck 07/22/25 Z85.850 - Personal history of malignant neoplasm of thyroid Patient Instructions: do blood work today, we will reach out with results Do ultrasound of the neck a few prior to your next follow up in August, someone will call you to schedule this Continue levothyroxine 175 mcg daily Coding Level of Care Code Est Pt Level 4 (87798) Complex EM visit Add On G2211 Diagnoses History of thyroid cancer Z85.850 Post-surgical hypothyroidism E89.0 Time Spent (min) 30
[2025-01-14 10:02] VITALS: BP 110/78; PULSE 88; O2SAT 99; BMI 61.2
--- OUTSIDE RECORDS SUMMARY | 2025-01-14 10:35 | XMS_ITS | Clinical Summary ---
Author Organization [facility] Address [address] [place] [address] Phone Care Team Providers Care Carpenter Inspector Name Role Phone Lavon Richardson MD Primary Care Provider [phone] Allergies Active Allergy Reactions Criticality Noted Date Comments Iodine 09/28/2024 Morphine Swelling High 11/18/2017 Shellfish Derived Hives 05/30/2024 Medications acetaZOLAMIDE (DIAMOX) 250 mg tablet Take 1 tablet (250 mg total) by mouth 2 (two) times a day. 025 Active Ventolin HFA 90 mcg/actuation inhaler Inhale 2 puffs by mouth if needed. 025 Active albuterol 2.5 mg /3 mL (0.083 %) nebulizer solution Inhale 3 mL (2.5 mg total) by mouth 3 (three) times a day. 013 Active amoxicillin-clavu lanate (AUGMENTIN) 875-125 mg per tablet Take 1 tablet by mouth 2 (two) times a day. for 10 days 025 Active ARIPiprazole (ABILIFY) 15 mg tablet Take 1 tablet (15 mg total) by mouth 1 (one) time each day. Active azithromycin (ZITHROMAX) 250 mg tablet Take 1 tablet (250 mg total) by mouth 1 (one) time. 024 Active buPROPion XL (WELLBUTRIN XL) 300 mg 24 hr tablet Take 1 tablet (300 mg total) by mouth 1 (one) time each day in the morning. Active butalbital-acetam inophen-caffeine (FIORICET, ESGIC) 50-325-40 mg per tablet Take 1 tablet by mouth 2 (two) times a day. Active cholecalciferol (VITAMIN D-3) 1,250 mcg (50,000 unit) capsule Take 50,000 Int'l Units by mouth 1 (one) time each day. Active clonazePAM (KlonoPIN) 1 mg tablet Take [...] mouth 2 (two) times a day. Active gabapentin (NEURONTIN) 800 mg tablet Take 1 tablet (800 mg total) by mouth 4 (four) times a day. Active hydrocortisone 2.5 % cream Apply 28 Applications topically if needed. Active hydrOXYzine HCL (ATARAX) 50 mg tablet Take 1 tablet (50 mg total) by mouth 1 (one) time each day. Active levothyroxine (SYNTHROID, LEVOTHROID) 150 mcg tablet Take 1 tablet (150 mcg total) by mouth 1 (one) time each day. Active Tirosint 150 mcg capsule Take 1 capsule (150 mcg total) by mouth 1 (one) time each day. Active methocarbamoL (ROBAXIN) 500 mg tablet Take 1 tablet (500 mg total) by mouth 3 (three) times a day if needed. for muscle spasms Active omeprazole (PriLOSEC) [address] capsule Take 1 capsule (40 mg total) by mouth 1 (one) time each day. Active ondansetron ODT (ZOFRAN-ODT) 4 mg disintegrating tablet Dissolve 1 tablet (4 mg total) on top of the tongue if needed. Active risperiDONE (RisperDAL) 0.25 mg tablet Take 1 tablet (0.25 mg total) by mouth 1 (one) time each day. Active topiramate (TOPAMAX) 50 mg tablet Take 1 tablet (50 mg total) by mouth 2 (two) times a day. Active ferrous sulfate 325 mg (65 mg iron) EC tabletIndications :Iron deficiency TAKE 1 TABLET BY MOUTH ONCE DAILY DO NOT CRUSH, CHEW, OR SPLIT 30 tablet 025 Active ferrous sulfate 325 mg (65 mg iron) EC tabletIndications :Iron deficiency Take 1 tablet (325 mg total) by mouth 1 (one) time each day. Do not crush, chew, or split. 30 each 025 2024 Discontinued Active Problems Problem Noted Date Diagnosed Date Schizophrenia [place] [place] [facility] [place] Class 3 severe obesity with serious comorbidity and body mass index (BMI) of 60.0 to 69.9 in adult ([facility] [place] [facility] [place] 09/28/2024 PTSD (post-traumatic stress disorder) 09/28/2024 Hepatitis C 09/28/2024 Depression 09/28/2024 Asthma 09/28/2024 Overview (09/28/2024): Poorly controlled. Anxiety 09/28/2024 Grand multiparity with problem Class 3 severe obesity witho ut serious comorbidity with body mass index (BMI) of 50.0 to 59.9 in adult [place] [place] [facility] [place] 09/11/2024 Encounters Date Type Department Care Team Description 11/28/2024 Telephone Bariatric Surgery - [address] [phone] 11/27/2024 Telephone Bariatric Surgery [address] [phone] call back (Called pt back ) 11/26/2024 Telephone Bariatric Surgery [address] [phone] Advice Only 11/22/2024 1:30 PM EDT Telemedicine Bariatric Surgery - [address] [place] [address] Class 3 severe obesity with serious comorbidity and body mass index (BMI) of 60.0 to 69.9 in adult, unspecified obesity type ([facility] V24, [facility] V28) (Primary Dx) 11/20/2024 8:45 AM EDT Office Visit Bariatric Surgery - [address] [phone] Christina Yu MD Class 3 severe obesity due to excess calories with body mass index (BMI) of 60.0 to 69.9 in adult, unspecified whether serious comorbidity present ([facility] V24, [facility] V28) (Primary Dx) from Last 3 Months Surgical History Surgery Date Site/Laterality Comments THYROIDECTOMY CHOLECYSTECTOMY SECTION Medical History Medical History Date Comments Multiple sclerosis ([facility] V24, [facility] V28) Thyroid cancer ([facility] V24, [facility] V28[facility] Lymphoma ([facility] V24[facility] V28) Social History Tobacco Use Types Packs/Day [...] - - Weight 149 kg (329 lb) 11/22/2024 3:00 PM EDT Height 157.5 cm (5' 2 ) 11/20/2024 8:57 AM EDT Body Mass Index 60.17 11/20/2024 8:57 AM EDT Plan of Treatment Health Maintenance Due Date Last Done Comments COVID-19 Vaccine (#1) 1990 Hepatitis B Vaccines (1 of 3 - 19+ 3-dose series) 2004 Pneumococcal Vaccine: Pediatrics (0 to 5 Years) and At-Risk Patients (6 to 49 Years) (1 of 2 - PCV) 2004 Cervical Cancer Screening: P ap Smear 2006 HIV Screening 05/30/2024 Hepatitis C Screening 05/30/2024 Social Influencers of Health Screening 05/30/2024 Depression Screening 06/06/2024 Influenza Vaccine (#1) 2025 6, 03/27/2014, 02/20/2013 DTaP,Tdap,and Td Vaccines (4 - Td or Tdap) 03/19/2026 03/19/2016, 03/27/2014, 05/15/2013 Cholesterol Screening (Lipid Panel) 11/23/2029 11/23/2024 Varicella Vaccines Aged Out 07/22/2013 No longer [...] Procedure Name Priority Date/Time Associated Diagnosis Comments BILIRUBIN DUPLICATE PROCEDURE TO ORDER Routine 11/23/2024 8:19 AM EDT Class 3 severe obesity due to excess calories with body mass index (BMI) of 50.0 to 59.9 in adult, unspecified whether serious comorbidity present (CMS/HCC V24, CMS/HCC V28) CBC WITH AUTO DIFFERENTIAL Routine 11/23/2024 8:19 AM EDT Class 3 severe obesity with serious comorbidity and body mass index (BMI) of 60.0 to 69.9 in adult, unspecified obesity type (CMS/HCC V24, CMS/HCC V28) LIPID PANEL WITH REFLEX TO DIRECT LDL Routine 11/23/2024 8:19 AM EDT Class 3 severe obesity due to excess calories with body mass index (BMI) of 50.0 to 59.9 in adult, unspecified whether serious comorbidity present (CMS/HCC V24, CMS/HCC V28) THYROID STIMULATING HORMONE Routine 11/23/2024 8:19 AM EDT Class 3 severe obesity due to excess calories with body mass index (BMI) of 50.0 to 59.9 in adult, unspecified whether serious comorbidity present (CMS/HCC V24, CMS/HCC V28) CBC AND DIFFERENTIAL Routine 11/23/2024 8:19 AM EDT Class 3 severe obesity with serious comorbidity and body mass index (BMI) of 60.0 to 69.9 in adult, unspecified obesity type (CMS/HCC V24, CMS/HCC V28) COMPREHENSIVE METABOLIC PANEL Routine 11/23/2024 8:19 AM EDT Class 3 severe obesity with serious comorbidity and body mass index (BMI) of 60.0 to 69.9 in adult, unspecified obesity type (CMS/HCC V24, CMS/HCC V28) CORTISOL Routine 11/23/2024 8:19 AM EDT Class 3 severe obesity with serious comorbidity and body mass index (BMI) of 60.0 to 69.9 in adult, unspecified obesity type (CMS/HCC V24, CMS/HCC V28) FERRITIN Routine 11/23/2024 8:19 AM EDT Class 3 severe obesity with serious comorbidity and body mass index (BMI) of 60.0 to 69.9 in adult, unspecified obesity type (CMS/HCC V24, CMS/HCC V28) FOLATE Routine 11/23/2024 8:19 AM EDT Class 3 severe obesity with serious comorbidity and body mass index (BMI) of 60.0 to 69.9 in adult, unspecified obesity type (CMS/HCC V24, CMS/HCC V28) HELICOBACTER PYLORI BREATH TEST Routine 11/23/2024 8:19 AM EDT Class 3 severe obesity with serious comorbidity and body mass index (BMI) of 60.0 to 69.9 in adult, unspecified obesity type (CMS/HCC V24, CMS/HCC V28) HEMOGLOBIN A1C Routine 11/23/2024 8:19 AM EDT Class 3 severe obesity with serious comorbidity and body mass index (BMI) of 60.0 to 69.9 in adult, unspecified obesity type (CMS/HCC V24, CMS/HCC V28) IRON AND TIBC Routine 11/23/2024 8:19 AM EDT Class 3 severe obesity with serious comorbidity and body mass index (BMI) of 60.0 to 69.9 in adult, unspecified obesity type (CMS/HCC V24, CMS/HCC V28) MAGNESIUM Routine 11/23/2024 8:19 AM EDT Class 3 severe obesity with serious comorbidity and body mass index (BMI) of 60.0 to 69.9 in adult, unspecified obesity type (CMS/HCC V24, CMS/HCC V28) NICOTINE AND COTININE Routine 11/23/2024 8:19 AM EDT Class 3 severe obesity with serious comorbidity and body mass index (BMI) of 60.0 to 69.9 in adult, unspecified obesity type (CMS/HCC V24, CMS/HCC V28) PARATHYROID HORMONE INTACT Routine 11/23/2024 8:19 AM EDT Class 3 severe obesity with serious comorbidity and body mass index (BMI) of 60.0 to 69.9 in adult, unspecified obesity type (CMS/HCC V24, CMS/HCC V28) VITAMIN B1 Routine 11/23/2024 8:19 AM EDT Class 3 severe obesity with serious comorbidity and body mass index (BMI) of 60.0 to 69.9 in adult, unspecified obesity type (CMS/HCC V24, CMS/HCC V28) VITAMIN B12 Routine 11/23/2024 8:19 AM EDT Class 3 severe obesity with serious comorbidity and body mass index (BMI) of 60.0 to 69.9 in adult, unspecified obesity type (CMS/HCC V24, CMS/HCC V28) VITAMIN D 25 HYDROXY Routine 11/23/2024 8:19 AM EDT Class 3 severe obesity with serious comorbidity and body mass index (BMI) of 60.0 to 69.9 in adult, unspecified obesity type (CMS/HCC V24, CMS/HCC V28) from Last 3 Months Results * Bilirubin duplicate procedure to order (11/23/2024 8:19 AM EDT) Total Bilirubin 0.4 0.0 - 1.4 mg/dL LAB CHEMISTRY METHOD 11/23/2024 11:02 AM EDT [facility] Bilirubin, Direct 0.1 0.0 - 0.3 mg/dL LAB CHEMISTRY METHOD 11/23/2024 11:02 AM EDT [facility] Bilirubin, Indirect 0.3 0.0 - 1.1 mg/dL LAB CHEMISTRY METHOD 11/23/2024 11:02 AM EDT [facility] Blood Venous blood specimen / Unknown Venipuncture / Unknown 11/23/2024 8:19 AM EDT 11/23/2024 8:19 AM EDT us Christina Yu MD LAB BLOOD ORDERABLES Final R esult [facility] [address] [place] [address], [place] [phone] * Lipid panel with reflex to direct LDL (11/23/2024 8:19 AM EDT) Cholesterol 140 0 - 200 mg/dL LAB CHEMISTRY METHOD 11/23/2024 11:02 AM EDT [facility] Triglycerides 84 0 - 150 mg/dL LAB CHEMISTRY METHOD [facility]/23[facility] HDL 45 >=40 mg/dL LAB CHEMISTRY METHOD 11/23/2024 11:02 AM EDT [facility] LDL Calculated 78 0 - 100 mg/dL LAB CHEMISTRY METHOD 11/23/2024 11:02 AM EDT [facility] VLDL Cholesterol Corky 16.8 mg/dL LAB CHEMISTRY METHOD 11/23/2024 11:[address] [facility] Non HDL Chol. (LDL+VLDL) 95 <145 mg/dL LAB CHEMISTRY METHOD 11/23[facility]24 [facility] Chol/HDL Ratio 3.1 0.0 - 4.4 LAB CHEMISTRY METHOD 11/23/2024 11:[address] [facility] Blood Venous blood specimen / Unknown Venipuncture / Unknown 11/23/2024 8:19 AM EDT 11/23/2024 8:19 AM EDT us Christina Yu MD LAB BLOOD ORDERABLES Final R esult [facility] [address] [place] [address], [place] [phone] * Nicotine and cotinine (11/23/2024 8:19 AM EDT) Nicotine <2.0 <2.0 ng/mL 11/27/2024 4:11 AM EDT [facility] Cotinine <2.0 <2.0 ng/mL 11/27/2024 4:11 AM EDT [facility] Comment: Additional Reference Ranges: Active Tobacco Passive Abstinence User Exposure 2 Weeks and more Nicotine 30 - 50 ng/mL <2 ng/mL <2 ng/mL Cotinine 200 - 800 ng/mL <8 ng/mL <2 ng/mL Reference Ranges from: Clin. Chem.; [id number] (2002) Direct any interpretive questions to the toxicology laboratory. This is for medical use only, it is not intended for forensic use. If applicable, any drug confirmation testing reported here was developed and the performance characteristics determined by [facility]. This confirmation testing has not been cleared or approved by the FDA. The laboratory is regulated under CLIA as qualified to perform high-complexity testing. This test is used for patient testing purposes. It should not be regarded as investigational or for research. Test performed at [facility], [address] , [place] [address] Heaven Adler MD, PhD - Life Sciences Instructor Blood Venous blood specimen / Unknown Venipuncture / Unknown 11/23/2024 8:19 AM EDT 11/23/2024 8:19 AM EDT us Christina Yu MD LAB BLOOD ORDERABLES Final R esult [facility] [address] [place] [address] * (ABNORMAL) CBC auto differential (11/23/2024 8:19 AM EDT) WBC 12.2(H) 4.8 - 10.8 K/[facility] HEMETOLOGY METHOD 11/23/2024 10:27 AM EDT [facility] RBC 4.40 3.80 - 4.80 M/[facility] LAB HEMETOLOGY METHOD 11/23/2024 10:27 AM EDT [facility] Hemoglobin 11.5 11.5 - 16.0 g/dL LAB HEMETOLOGY METHOD 11/23/2024 10:[address] [facility] Hematocrit 37.2 35.0 - 47.0 % LAB HEMETOLOGY METHOD 11/23/2024 10:[address] [facility] MCV 84.9 79.0 - 98.0 FL LAB HEMETOLOGY METHOD 11/23/2024 10:[address] [facility] MCH 26.3(L) 27.0 - 32.0 pcg LAB HEMETOLOGY METHOD 11/23/2024 10:[address] [facility] MCHC 30.9(L) 32.0 - 37.0 g/dL LAB HEMETOLOGY METHOD 11/23/2024 10:[address] [facility] RDW 17.2(H) 11.0 - 15.0 % LAB HEMETOLOGY METHOD 11/23/2024 10:[address] [facility] Platelets 420(H) 130 - 400 K/mcL LAB HEMETOLOGY METHOD 11/23/2024 10:[address] [facility] MPV 8.9 7.0 - 11.0 FL LAB HEMETOLOGY METHOD 11/23/2024 10:[address] [facility] NRBC 0.0 <1.0 % LAB HEMETOLOGY METHOD 11/23/2024 10:[address] [facility] NRBC Absolute 0.00 <0.10 K/mcL LAB HEMETOLOGY METHOD 11/23/2024 10:[address] [facility] Neutrophils Relative 59.9 % LAB HEMETOLOGY METHOD 11/23/2024 10:[address] [facility] Lymphocytes Relative 28.5 % LAB HEMETOLOGY METHOD 11/23/2024 10:[address] [facility] Monocytes Relative 6.6 % LAB HEMETOLOGY METHOD 11/23/2024 10:27 AM EDT [facility] Eosinophils Relative 3.9 % LAB HEMETOLOGY METHOD 11/23/2024 10:27 AM EDT [facility] Basophils Relative 0.5 % LAB HEMETOLOGY METHOD 11/23/2024 10:27 AM EDT [facility] Immature Granulocytes Relative 0.6 % LAB HEMETOLOGY METHOD 11/23/2024 10:27 AM EDT [facility] Neutrophils Absolute 7.32(H) 1.50 - 7.00 K/mcL LAB HEMETOLOGY METHOD 11/23/2024 10:27 AM EDT [facility] Lymphocytes Absolute 3.48 1.00 - 5.00 K/mcL LAB HEMETOLOGY METHOD 11/23/2024 10:27 AM EDT [facility] Monocytes Absolute 0.80 0.20 - 1.00 K/mcL LAB HEMETOLOGY METHOD 11/23/2024 10:27 AM EDT [facility] Eosinophils Absolute 0.47 0.00 - 0.50 K/mcL LAB HEMETOLOGY METHOD 11/23/2024 10:[address] [facility] Basophils Absolute 0.06 0.00 - 0.20 K/mcL LAB HEMETOLOGY METHOD 11/23/2024 10:27 AM EDT [facility] Immature Granulocytes Absolute 0.07(H) 0.00 - 0.03 K/mcL LAB HEMETOLOGY METHOD 11/23/2024 10:27 AM T [facility] Blood Venous blood specimen / Unknown Venipuncture / Unknown 11/23/2024 8:19 AM EDT 11/23/2024 8:19 AM EDT us Christina Yu MD LAB BLOOD ORDERABLES Final R esult [facility] [address] [place] [address], [place] [phone] * (ABNORMAL) Iron and TIBC (11/23/2024 8:19 AM EDT) Pathologist [facility] Iron 38(L) 40 - 150 mcg/dL LAB CHEMISTRY METHOD 11/23/2024 11:02 AM EDT [facility] TIBC 436 250 - 450 mcg/dL LAB CHEMISTRY METHOD 11/23/2024 11:02 AM EDT [facility] Iron Saturation 9(L) 15 - 50 % LAB CHEMISTRY METHOD 11/23/2024 11:02 AM EDT [facility] Blood Venous blood specimen / Unknown Venipuncture / Unknown 11/23/2024 8:19 AM EDT 11/23/2024 8:19 AM EDT us Christina Yu MD LAB BLOOD ORDERABLES Final R esult [facility] [address] [place] [address], [place] [phone] * Helicobacter pylori breath test (11/23/2024 8:19 AM EDT) [facility] H Pylori Breath Test Negative Negative LAB CHEMISTRY METHOD 11/23/2024 10:47 AM EDT [facility] Breath Oral cavity structure / Unknown Non-blood Collection / Unknown 11/23/2024 8:19 AM EDT 11/23/2024 8:19 AM EDT us Christina Yu MD LAB BODY FLUIDS AND STOOLS O RDERABLES Final Result [facility] [address] [place] [address], [place] [phone] * Vitamin D 25 hydroxy (11/23/2024 8:19 AM EDT) [facility] Vit D, 25-Hydroxy 39.4 30.0 - 80.0 ng/mL LAB CHEMISTRY METHOD 11/23/2024 11:38 AM EDT [facility] Blood Venous blood specimen / Unknown Venipuncture / Unknown 11/23/2024 8:19 AM EDT 11/23/2024 8:19 AM EDT us Christina Yu MD LAB BLOOD ORDERABLES Final R esult Performing Organization Address [facility]/ZIP Co de Phone Number [facility] [address] [place] [address], [place] [phone] * Thyroid stimulating hormone (11/23/2024 8:19 AM EDT) [facility] TSH 0.69 0.40 - 4.00 mcIU/mL LAB CHEMISTRY METHOD 11/23/2024 11:38 AM EDT [facility] Blood Venous blood specimen / Unknown Venipuncture / Unknown 11/23/2024 8:19 AM EDT 11/23/2024 8:19 AM EDT us Christina Yu MD LAB BLOOD ORDERABLES Final R esult Performing Organization Address [facility] Co de Phone Number [facility] [address] [place] [address], [place] [phone] * Vitamin B1 (11/23/2024 8:19 AM EDT) [facility] Vitamin B1 Whole Blood 68 38 - 122 ug/L 11/28/2024 6:40 AM EDT [facility] Comment: This test was developed and the performance characteristics determined by [facility]. It has not been cleared or approved by the FDA. The laboratory is regulated under CLIA as qualified to perform high-complexity testing. This test is used for patient testing purposes. It should not be regarded as investigational or for research. Test performed at [facility], [facility] [address] , [place] [address] Heaven Adler MD, PhD - Life Sciences Instructor Blood Venous blood specimen / Unknown Venipuncture / Unknown 11/23/2024 8:19 AM EDT 11/23/2024 8:19 AM EDT us Christina Yu MD LAB BLOOD ORDERABLES Final R esult [facility] [place] [address] * Parathyroid hormone intact (11/23/2024 8:19 AM EDT) PTH 60.2 18.5 - 88.0 pcg/mL LAB CHEMISTRY METHOD 11/23/2024 12:03 PM EDT [facility] Blood Venous blood specimen / Unknown Venipuncture / Unknown 11/23/2024 8:19 AM EDT 11/23/2024 8:19 AM EDT Christina Yu MD LAB BLOOD ORDERABLES Final R esult Performing Organization Address [facility] Co de Phone Number [facility] [address] [place] [address], [place] [phone] * Magnesium (11/23/2024 8:19 AM EDT) Magnesium 2.1 1.9 - 2.6 mg/dL LAB CHEMISTRY METHOD 11/23/2024 10:37 AM EDT [facility] Blood Venous blood specimen / Unknown Venipuncture / Unknown 11/23/2024 8:19 AM EDT 11/23/2024 8:19 AM EDT us Christina Yu MD LAB BLOOD ORDERABLES Final R esult Performing Organization Address City/[facility]/ZIP Co de Phone Number [facility] [address] [place] [address], [place] [phone] * Hemoglobin A1c (11/23/2024 8:19 AM EDT) Hemoglobin A1C 5.9 <6.5 % LAB CHEMISTRY METHOD 11/23/2024 12:36 PM EDT [facility] Mean Bld Glu Estim. 123 mg/dL LAB CHEMISTRY METHOD 11/23/2024 12:36 PM EDT [facility] Blood Venous blood specimen / Unknown Venipuncture / Unknown 11/23/2024 8:19 AM EDT 11/23/2024 8:19 AM EDT Christina Yu MD LAB BLOOD ORDERABLES Final R esult [facility] [address] [place] [address], * Folate (11/23/2024 8:19 AM EDT) Pathologist [facility] Folate 9.7 2.8 - 17.0 ng/ml LAB CHEMISTRY METHOD 11/23/2024 11:02 AM EDT [facility] Blood Venous blood specimen / Unknown Venipuncture / Unknown 11/23/2024 8:19 AM EDT 11/23/2024 8:19 AM EDT Christina Yu MD LAB BLOOD ORDERABLES Final R esult [facility] [address] [place] [address], [place] [phone] * Ferritin (11/23/2024 8:19 AM EDT) Ferritin 13 8 - 252 ng/mL LAB CHEMISTRY METHOD 11/23/2024 11:02 AM EDT [facility] Blood Venous blood specimen / Unknown Venipuncture / Unknown 11/23/2024 8:19 AM EDT 11/23/2024 8:19 AM EDT us Christina Yu MD LAB BLOOD ORDERABLES Final R esult Performing Organization Address [facility]/ZIP Co de Phone Number [facility] [address] [place] [address], [place] [phone] * Vitamin B12 (11/23/2024 8:19 AM EDT) [facility] Vitamin B-12 368 250 - 900 pcg/mL LAB CHEMISTRY METHOD 11/23/2024 11:02 AM EDT [facility] Blood Venous blood specimen / Unknown Venipuncture / Unknown 11/23/2024 8:19 AM EDT 11/23/2024 8:19 AM EDT us Christina Yu MD LAB BLOOD ORDERABLES Final R esult Performing Organization Address [facility] Co de Phone Number [facility] [address] [place] [address], [place] [phone] * Cortisol (11/23/2024 8:19 AM EDT) [facility] Cortisol 8.0 mcg/dL LAB CHEMISTRY METHOD 11/23/2024 11:38 AM EDT [facility] Blood Venous blood specimen / Unknown Venipuncture / Unknown 11/23/2024 8:19 AM EDT 11/23/2024 8:19 AM EDT Narrative [facility] - 11/23/2024 11:38 AM EDT CORTISOL REFERENCE RANGE 8 AM SPEC: 5.0-23.0 mcg/dL 4 PM SPEC: 3.0-16.0 mcg/dL 8 PM SPEC: <5.0 mcg/dL us Christina Yu MD LAB BLOOD ORDERABLES Final R esult Performing Organization Address City/[facility]/ZIP Co de Phone Number [facility] [address] [place] [address], * (ABNORMAL) Comprehensive metabolic panel (11/23/2024 8:19 AM EDT) Sodium 137 133 - 145 mmol/L LAB CHEMISTRY METHOD 11/23/2024 11:[address] [facility] Potassium 4.2 3.5 - 5.5 mmol/L LAB CHEMISTRY METHOD 11/23/2024 11:[address] [facility] Chloride 110 96 - 110 mmol/L LAB CHEMISTRY METHOD 11/23/2024 11:[address] [facility] CO2 20(L) 21 - 32 mmol/L LAB CHEMISTRY METHOD 11/23/2024 11:[address] [facility] Anion Gap 7 3 - 11 LAB CHEMISTRY METHOD 11/23/2024 11:[address] [facility] Glucose 92 70 - 100 mg/dL LAB CHEMISTRY METHOD 11/23/2024 11:[address] [facility] BUN 16 5 - 25 mg/dL LAB CHEMISTRY METHOD 11/23/2024 11:[address] [facility] Creatinine 0.95 0.50 - 1.10 mg/dL LAB CHEMISTRY METHOD 11/23/2024 11:[address] [facility] eGFR 78 >=60 mL/min/1. 73m2 LAB CHEMISTRY METHOD 11/23/2024 11:[address] [facility] Comment:Calculation based on the Chronic Kidney Disease Epidemiology Collaboration (CKD-EPI) equation refit without adjustment for race. BUN/Creatinine Ratio 16.8 LAB CHEMISTRY METHOD 11/23/2024 11:[address] [facility] Calcium 9.0 8.5 - 10.5 mg/dL LAB CHEMISTRY METHOD 11/23/2024 11:[address] [facility] AST (SGOT) 47(H) 10 - 42 unit/L LAB CHEMISTRY METHOD 11/23/2024 11:02 AM EDT [facility] ALT (SGPT) 74(H) 10 - 60 unit/L LAB CHEMISTRY METHOD 11/23/2024 11:02 AM EDT [facility] Alkaline Phosphatase 104 42 - 121 unit/L LAB CHEMISTRY METHOD 11/23/2024 11:02 AM EDT [facility] Total Protein 7.8 6.0 - 8.0 g/dL LAB CHEMISTRY METHOD 11/23/2024 11:02 AM EDT [facility] Albumin 3.2 3.2 - 5.0 g/dL LAB CHEMISTRY METHOD 11/23/2024 11:02 AM EDT [facility] Total Bilirubin 0.4 0.0 - 1.4 mg/dL LAB CHEMISTRY METHOD 11/23/2024 11:02 AM EDT [facility] Blood Venous blood specimen / Unknown Venipuncture / Unknown 11/23/2024 8:19 AM EDT 11/23/2024 8:19 AM EDT us Christina Yu MD LAB BLOOD ORDERABLES Final R esult [facility] [address] [place] [address], from Last 3 Months Insurance [facility] [employer] Care Teams Carpenter Inspector Relationship Specialty Start Date End Date Lavon Richardson MD [address] [place] [address] [address] [place] PCP - General Internal Medicine 08/16/24
== END 2025-01-14 10:26 | disposition home or self-care (01) ==
LOC: HO.ENCR 09:59
PROVIDERS: PCP Internal Medicine; Visit Provider Student in an Organized Health Care Education/Training Program
DX: Z85.850 Personal history of malignant neoplasm of thyroid (principal); E89.0 Postprocedural hypothyroidism
CPT/HCPCS: 99214

== ENCOUNTER 2025-01-14 09:59 | Outpatient (REF) | payer OTHER, SELFPAY ==
[2025-01-14 11:55] LABS: Free T4 (Free Thyroxine) 1.29 ng/dL (0.71-1.85); Thyroid Stimulating Hormone 0.12 uIU/mL (0.32-4.0)
[2025-01-15 17:52] LABS: Thyroglobulin <0.1 ng/mL; Thyroglobulin Antibodies <1 IU/mL (< or = 1)
== END 2025-01-14 10:00 | disposition home or self-care (01) ==
LOC: HO.LAB 09:59
PROVIDERS: PCP Internal Medicine; Visit Provider Student in an Organized Health Care Education/Training Program
DX: E89.0 Postprocedural hypothyroidism (principal); R22.1 Localized swelling, mass and lump, neck; F17.210 Nicotine dependence, cigarettes, uncomplicated; Z85.850 Personal history of malignant neoplasm of thyroid; Z79.899 Other long term (current) drug therapy; Z01.84 Encounter for antibody response examination
CPT/HCPCS: 36415; 84432; 84439; 84443; 86800; 99212

== ENCOUNTER 2025-01-16 09:25 | Outpatient (REF) | payer OTHER, SELFPAY ==
--- NOTE | 2025-01-16 09:28 | EMG_ITS ---
Chief complaint: Cramps lower back, abdomen, legs, sometimes arms. History of fibromyalgia. No weakness. No atrophy. Reason for referral: Evaluate for myopathy Procedure done: Right upper and lower extremities NCS/EMG Precautions and/or limitations: None The limb temperature was monitored continuously and remained between 32-36 degrees C during the performance of the NCS. Nerve Conduction Studies Anti Sensory Summary Table ?Stim Site NR Onset (ms) Norm Onset (ms) Peak (ms) Norm Peak (ms) O-P Amp (?V) Norm O-P Amp Site1 Site2 Delta-0 (ms) Dist (cm) Jason (m/s) Norm Jason (m/s) Right Median Anti Sensory (2nd Digit) Wrist ? 2.3 2.9 <3.6 17.3 >10 Wrist 2nd Digit 2.3 14.0 61 Right Radial Anti Sensory (Thumb) Forearm ? 1.5 2.0 <3.1 33.8 Forearm Thumb 1.5 0.0 Right Sural Anti Sensory (Lat Mall) Calf ? 1.8 2.2 <4.0 10.4 >5.0 Calf Lat Mall 1.8 14.0 78 Right Ulnar Anti Sensory (5th Digit) Wrist ? 1.8 3.1 <3.7 20.1 >15.0 Wrist 5th Digit 1.8 14.0 78 Motor Summary Table ?Stim Site NR Onset (ms) Norm Onset (ms) O-P Amp (mV) Norm O-P Amp iAmp (mV) Amp (1st) (%) Site1 Site2 Delta-0 (ms) Dist (cm) Jason (m/s) Norm Jason (m/s) Right Median Motor (Abd Poll Brev) Wrist ? 2.9 <3.9 8.5 >4.5 10.6 100.0 Elbow Wrist 4.0 21.5 54 >45 Elbow ? 6.9 16.2 20.6 190.6 Right Peroneal Motor (Ext Dig Brev) Ankle ? 3.4 <4.0 4.9 >2.5 6.3 100.0 Ankle Ext Dig Brev 3.4 0.0 B Fib ? 10.1 2.1 3.0 42.9 B Fib Ankle 6.7 32.5 49 >40 Poplt ? 10.7 4.5 5.8 91.8 Poplt B Fib 0.6 5.0 83 >40 Right Tibial Motor (Abd Clark Brev) Ankle ? 3.8 <5 4.0 >2.5 5.3 100.0 Ankle Abd Clark Brev 3.8 0.0 Knee ? 12.4 0.7 1.1 17.5 Knee Ankle 8.6 36.0 42 >40 Right Ulnar Motor (Abd Dig Minimi) Wrist ? 2.5 <3.0 8.8 >5 9.9 100.0 B Elbow Wrist 3.0 20.0 67 >45 B Elbow ? 5.5 7.9 9.3 89.8 A Elbow B Elbow 1.1 10.0 91 >45 A Elbow ? 6.6 7.6 9.0 86.4 EMG ?Side Muscle Nerve Root Ins Act Fibs Psw Amp Dur Poly Recrt Int Pat Comment Right 1stDorInt Ulnar C8-T1 Nml Nml Nml Nml Nml 0 Nml Complete Right FlexCarRad Median C6-7 Nml Nml Nml Nml Nml 0 Nml Complete Right Biceps Musculocut C5-6 Nml Nml Nml Nml Nml 0 Nml Complete Right Triceps Radial C6-7-8 Nml Nml Nml Nml Nml 0 Nml Complete Right Deltoid Axillary C5-6 Nml Nml Nml Nml Nml 0 Nml Complete Right AbdHallucis MedPlantar S1-2 Nml Nml Nml Nml Nml 0 Nml Complete Right AntTibialis Dp Br Peron L4-5 Nml Nml Nml Nml Nml 0 Nml Complete Right PostTibialis Tibial L5, S1 Nml Nml Nml Nml Nml 0 Nml Complete Right MedGastroc Tibial S1-2 Nml Nml Nml Nml Nml 0 Nml Complete Right VastusMed Femoral L2-4 Nml Nml Nml Nml Nml 0 Nml Complete Paraspinal EMG ?Side Muscle Nerve Root Ins Act Fibs Psw Comment Right Cervical Upper Rami Nml Nml Nml Right Cervical Mid Rami Nml Nml Nml Right Cervical Lower Rami Nml Nml Nml FINDINGS: All motor and sensory nerves tested showed normal latencies, amplitudes and conduction velocities. Concentric needle EMG was performed in selected muscles of the right upper and lower extremities, cervical paraspinals. Study did not reveal signs of electric abnormalities as shown in the table above. No myopathic looking units. IMPRESSION: 1. This is a normal study. 2. There is no electrodiagnostic evidence for median neuropathy, ulnar neuropathy, brachial plexopathy, cervical radiculopathy, peroneal neuropathy, tibial neuropathy, lumbosacral plexopathy, lumbar radiculopathy, myopathy, or peripheral neuropathy. Thank you for your kind referral. Flaca Hayes MD, LEWIS Board Certified, [place] Board of Physical Medicine and Rehabilitation (ABPMR) Board Certified, [place] Board of Electrodiagnostic Medicine (ABEM) CODIN 27797 x2 MTDD
--- OUTSIDE RECORDS SUMMARY | 2025-01-16 09:51 | XMS_ITS | Clinical Summary ---
Author Organization [facility] Address [address] [place] [address] Phone Care Team Providers Care Automobile Service Writer Name Role Phone Lavon Richardson MD Primary [...] Problems Problem Noted Date Diagnosed Date Schizophrenia ([facility] V24, [facility] V28) Class 3 severe obesity with serious comorbidity and body mass index (BMI) of 60.0 to 69.9 in adult ([facility] V24, [facility] V28) 09/28/2024 PTSD (post-traumatic stress disorder) 09/28/2024 Hepatitis C 09/28/2024 Depression 09/28/2024 Asthma 09/28/2024 Overview (09/28/2024): Poorly controlled. Anxiety 09/28/2024 Grand multiparity with problem Class 3 severe obesity witho ut serious comorbidity with body mass index (BMI) of 50.0 to 59.9 in adult ([facility] V24, [facility] V28) 09/11/2024 Encounters Date Type Department Care Team Description 11/28/2024 Telephone Bariatric Surgery - [address] [phone] 11/27/2024 Telephone Bariatric Surgery [address] [phone] call back (Called pt back ) 11/26/2024 Telephone Bariatric Surgery [address] [phone] Advice Only 11/22/2024 1:30 PM EDT Telemedicine Bariatric Surgery - [address] [place] [address] Class 3 severe obesity with serious comorbidity and body mass index (BMI) of 60.0 to 69.9 in adult, unspecified obesity type ([facility] V24, [facility] V28) (Primary Dx) 11/20/2024 8:45 AM EDT Office Visit Bariatric Surgery - [address] [phone] Christina Yu MD Class 3 severe obesity due to excess calories with body mass index (BMI) of 60.0 to 69.9 in adult, unspecified whether serious comorbidity present ([facility] V24, [facility] V28) (Primary Dx) from Last 3 Months Surgical History Surgery Date Site/Laterality Comments THYROIDECTOMY CHOLECYSTECTOMY SECTION Medical History Medical History Date Comments Multiple sclerosis ([facility] V24, [facility] V28) Thyroid cancer ([facility] V24, [facility] V28) Lymphoma ([facility] V24, [facility] V28) Social History Tobacco Use Types Packs/Day [...] LAB CHEMISTRY METHOD 11/23/2024 11:02 AM EDT [facility] Bilirubin, Direct 0.1 0.0 - 0.3 mg/dL LAB CHEMISTRY METHOD 11/23/2024 11:02 AM EDT [facility] Bilirubin, Indirect 0.3 0.0 - 1.1 mg/dL LAB CHEMISTRY METHOD 11/23/2024 11:02 AM EDT [facility] Blood Venous blood specimen / Unknown Venipuncture / Unknown 11/23/2024 8:19 AM EDT 11/23/2024 8:19 AM EDT us Christina Yu MD LAB BLOOD ORDERABLES Final R esult [facility] [address] [place] [address], [place] [phone] * Lipid panel with reflex to direct LDL (11/23/2024 8:19 AM EDT) Cholesterol 140 0 - 200 mg/dL LAB CHEMISTRY METHOD 11/23/2024 11:02 AM EDT [facility] Triglycerides 84 0 - 150 mg/dL LAB CHEMISTRY METHOD [facility]24 [facility] HDL 45 >=40 mg/dL LAB CHEMISTRY METHOD 11/23/2024 11:02 AM EDT [facility] LDL Calculated 78 0 - 100 mg/dL LAB CHEMISTRY METHOD 11/23/2024 11:02 AM EDT [facility] VLDL Cholesterol Corky 16.8 mg/dL LAB CHEMISTRY METHOD 11/23/2024 11:02 AM [facility] Non HDL Chol. (LDL+VLDL) 95 <145 mg/dL LAB CHEMISTRY METHOD 11/23/2024 11:[facility] Chol/HDL Ratio 3.1 0.0 - 4.4 LAB CHEMISTRY METHOD 11/23/2024 11:02 AM [facility] Blood Venous blood specimen / Unknown Venipuncture / Unknown 11/23/2024 8:19 AM EDT 11/23/2024 8:19 AM EDT us Christina Yu MD LAB BLOOD ORDERABLES Final R esult [facility] [address] [place] [address], [place] [phone] * Nicotine and cotinine (11/23/2024 8:19 AM [...] <2 ng/mL Reference Ranges from: Clin. Chem.; 48:[id number] (2002) Direct any interpretive questions to the toxicology laboratory. This is for medical use only, it is not intended for forensic use. If applicable, any drug confirmation testing reported here was developed and the performance characteristics determined by [facility]. This confirmation testing has not been cleared or approved by the FDA. The laboratory is regulated under CLIA as qualified to perform high-complexity testing. This test is used for patient testing purposes. It should not be regarded as investigational or for research. Test performed at [facility], [address] , [place] [address] Heaven Adler MD, PhD - Bar Assistant Blood Venous blood specimen / Unknown Venipuncture / Unknown 11/23/2024 8:19 AM EDT 11/23/2024 8:19 AM EDT us Christina Yu MD LAB BLOOD ORDERABLES Final R esult [facility] [address] [place] [address] * (ABNORMAL) CBC auto differential (11/23/2024 8:19 AM EDT) WBC 12.2(H) 4.8 - 10.8 K/[facility] LAB HEMETOLOGY METHOD 11/23/2024 10:27 AM EDT [facility] RBC 4.40 3.80 - 4.80 M/[facility] LAB HEMETOLOGY METHOD 11/23/2024 10:27 AM EDT [facility] Hemoglobin 11.5 11.5 - 16.0 g/dL LAB HEMETOLOGY METHOD 11/23/2024 10:27 AM [facility] Hematocrit 37.2 35.0 - 47.0 % LAB HEMETOLOGY METHOD 11/23/2024 10:27 AM [facility] MCV 84.9 79.0 - 98.0 FL LAB HEMETOLOGY METHOD 11/23/2024 10:27 AM [facility] MCH 26.3(L) 27.0 - 32.0 pcg LAB HEMETOLOGY METHOD 11/23/2024 10:27 AM [facility] MCHC 30.9(L) 32.0 - 37.0 g/dL LAB HEMETOLOGY METHOD 11/23/2024 10:27 AM [facility] RDW 17.2(H) 11.0 - 15.0 % LAB HEMETOLOGY METHOD 11/23/2024 10:27 AM [facility] Platelets 420(H) 130 - 400 K/mcL LAB HEMETOLOGY METHOD 11/23/2024 10:27 AM [facility] MPV 8.9 7.0 - 11.0 FL LAB HEMETOLOGY METHOD 11/23/2024 10:27 AM [facility] NRBC 0.0 <1.0 % LAB HEMETOLOGY METHOD 11/23/2024 10:27 AM [facility] NRBC Absolute 0.00 <0.10 K/mcL LAB HEMETOLOGY METHOD 11/23/2024 10:27 AM [facility] Neutrophils Relative 59.9 % LAB HEMETOLOGY METHOD 11/23/2024 10:27 AM [facility] Lymphocytes Relative 28.5 % LAB HEMETOLOGY METHOD 11/23/2024 10:27 AM [facility] Monocytes Relative 6.6 % LAB HEMETOLOGY METHOD 11/23/2024 10:27 AM EDT [facility] Eosinophils Relative 3.9 % LAB HEMETOLOGY METHOD 11/23/2024 10:27 AM EDT [facility] Basophils Relative 0.5 % LAB HEMETOLOGY METHOD 11/23/2024 10:27 AM EDT [facility] Immature Granulocytes Relative 0.6 % LAB HEMETOLOGY METHOD 11/23/2024 10:27 AM EDT [facility] Neutrophils Absolute 7.32(H) 1.50 - 7.00 K/mcL LAB HEMETOLOGY METHOD 11/23/2024 10:27 AM EDT [facility] Lymphocytes Absolute 3.48 1.00 - 5.00 K/mcL LAB HEMETOLOGY METHOD 11/23/2024 10:27 AM EDT [facility] Monocytes Absolute 0.80 0.20 - 1.00 K/mcL LAB HEMETOLOGY METHOD 11/23/2024 10:27 AM EDT [facility] Eosinophils Absolute 0.47 0.00 - 0.50 K/mcL LAB HEMETOLOGY METHOD 11/23/2024 10:27 AM [facility] Basophils Absolute 0.06 0.00 - 0.20 K/mcL LAB HEMETOLOGY METHOD 11/23/2024 10:27 AM EDT [facility] Immature Granulocytes Absolute 0.07(H) 0.00 - 0.03 K/mcL LAB HEMETOLOGY METHOD 11/23/2024 10:27 AM T [facility] Blood Venous blood specimen / Unknown Venipuncture / Unknown 11/23/2024 8:19 AM EDT 11/23/2024 8:19 AM EDT us Christina Yu MD LAB BLOOD ORDERABLES Final R esult [facility] [address] [place] [address], [place] [phone] * (ABNORMAL) Iron and TIBC (11/23/2024 8:19 AM EDT) Pathologist [facility] Iron 38(L) 40 - 150 mcg/dL LAB CHEMISTRY METHOD 11/23/2024 11:02 AM EDT [facility] TIBC 436 250 - 450 mcg/dL LAB CHEMISTRY METHOD 11/23/2024 11:02 AM EDT [facility] Iron Saturation 9(L) 15 - 50 % LAB CHEMISTRY METHOD 11/23/2024 11:02 AM EDT [facility] Blood Venous blood specimen / Unknown Venipuncture / Unknown 11/23/2024 8:19 AM EDT 11/23/2024 8:19 AM EDT us Christina Yu MD LAB BLOOD ORDERABLES Final R esult [facility] [address] [place] [address], [place] [phone] * Helicobacter pylori breath test (11/23/2024 8:19 AM EDT) [facility] H Pylori Breath Test Negative Negative LAB CHEMISTRY METHOD 11/23/2024 10:47 AM EDT [facility] Breath Oral cavity structure / Unknown Non-blood Collection / Unknown 11/23/2024 8:19 AM EDT 11/23/2024 8:19 AM EDT us Christina Yu MD LAB BODY FLUIDS AND STOOLS O RDERABLES Final Result [facility] [address] [place] [address], [place] [phone] * Vitamin D 25 hydroxy (11/23/2024 8:19 AM EDT) [facility] Vit D, 25-Hydroxy 39.4 30.0 - 80.0 ng/mL LAB CHEMISTRY METHOD 11/23/2024 11:38 AM EDT [facility] Blood Venous blood specimen / Unknown Venipuncture / Unknown 11/23/2024 8:19 AM EDT 11/23/2024 8:19 AM EDT us Christina Yu MD LAB BLOOD ORDERABLES Final R esult Performing Organization Address [facility]/ZIP Co de Phone Number [facility] [address] [place] [address], [place] [phone] * Thyroid stimulating hormone (11/23/2024 8:19 AM EDT) [facility] TSH 0.69 0.40 - 4.00 mcIU/mL LAB CHEMISTRY METHOD 11/23/2024 11:38 AM EDT [facility] Blood Venous blood specimen / Unknown Venipuncture / Unknown 11/23/2024 8:19 AM EDT 11/23/2024 8:19 AM EDT us Christina Yu MD LAB BLOOD ORDERABLES Final R esult Performing Organization Address [facility] Co de Phone Number [facility] [address] [place] [address], [place] [phone] * Vitamin B1 (11/23/2024 8:19 AM EDT) [facility] Vitamin B1 Whole Blood 68 38 - 122 ug/L 11/28/2024 6:40 AM EDT [facility] Comment: This test was developed and the performance characteristics determined by [facility]. It has not been cleared or approved by the FDA. The laboratory is regulated under CLIA as qualified to perform high-complexity testing. This test is used for patient testing purposes. It should not be regarded as investigational or for research. Test performed at [facility], [facility] [address] , [place] [address] Heaven Adler MD, PhD - Bar Assistant Blood Venous blood specimen / Unknown Venipuncture / Unknown 11/23/2024 8:19 AM EDT 11/23/2024 8:19 AM EDT us Christina Yu MD LAB BLOOD ORDERABLES Final R esult [facility] [address] [place] [address] * Parathyroid hormone intact (11/23/2024 8:19 AM EDT) PTH 60.2 18.5 - 88.0 pcg/mL LAB CHEMISTRY METHOD 11/23/2024 12:03 PM EDT [facility] Blood Venous blood specimen / Unknown Venipuncture / Unknown 11/23/2024 8:19 AM EDT 11/23/2024 8:19 AM EDT Christina Yu MD LAB BLOOD ORDERABLES Final R esult Performing Organization Address [facility] Co de Phone Number [facility] [address] [place] [address], [place] [phone] * Magnesium (11/23/2024 8:19 AM EDT) Magnesium 2.1 1.9 - 2.6 mg/dL LAB CHEMISTRY METHOD 11/23/2024 10:37 AM EDT [facility] Blood Venous blood specimen / Unknown Venipuncture / Unknown 11/23/2024 8:19 AM EDT 11/23/2024 8:19 AM EDT us Christina Yu MD LAB BLOOD ORDERABLES Final R esult Performing Organization Address City/[facility]/ZIP Co de Phone Number [facility] [address] [place] [address], [place] [phone] * Hemoglobin A1c (11/23/2024 8:19 AM EDT) Hemoglobin A1C 5.9 <6.5 % LAB CHEMISTRY METHOD 11/23/2024 12:36 PM EDT [facility] Mean Bld Glu Estim. 123 mg/dL LAB CHEMISTRY METHOD 11/23/2024 12:36 PM EDT [facility] Blood Venous blood specimen / Unknown Venipuncture / Unknown 11/23/2024 8:19 AM EDT 11/23/2024 8:19 AM EDT Christina Yu MD LAB BLOOD ORDERABLES Final R esult [facility] [address] [place] [address], * Folate (11/23/2024 8:19 AM EDT) Pathologist [facility] Folate 9.7 2.8 - 17.0 ng/ml LAB CHEMISTRY METHOD 11/23/2024 11:02 AM EDT [facility] Blood Venous blood specimen / Unknown Venipuncture / Unknown 11/23/2024 8:19 AM EDT 11/23/2024 8:19 AM EDT Christina Yu MD LAB BLOOD ORDERABLES Final R esult [facility] [address] [place] [address], [place] [phone] * Ferritin (11/23/2024 8:19 AM EDT) Ferritin 13 8 - 252 ng/mL LAB CHEMISTRY METHOD 11/23/2024 11:02 AM EDT [facility] Blood Venous blood specimen / Unknown Venipuncture / Unknown 11/23/2024 8:19 AM EDT 11/23/2024 8:19 AM EDT us Christina Yu MD LAB BLOOD ORDERABLES Final R esult Performing Organization Address [facility]/ZIP Co de Phone Number [facility] [address] [place] [address], [place] [phone] * Vitamin B12 (11/23/2024 8:19 AM EDT) [facility] Vitamin B-12 368 250 - 900 pcg/mL LAB CHEMISTRY METHOD 11/23/2024 11:02 AM EDT [facility] Blood Venous blood specimen / Unknown Venipuncture / Unknown 11/23/2024 8:19 AM EDT 11/23/2024 8:19 AM EDT us Christina Yu MD LAB BLOOD ORDERABLES Final R esult Performing Organization Address [facility] Co de Phone Number [facility] [address] [place] [address], [place] [phone] * Cortisol (11/23/2024 8:19 AM EDT) [facility] Cortisol 8.0 mcg/dL LAB CHEMISTRY METHOD 11/23/2024 11:38 AM EDT [facility] Blood Venous blood specimen / Unknown Venipuncture / Unknown 11/23/2024 8:19 AM EDT 11/23/2024 8:19 AM EDT Narrative [facility] - 11/23/2024 11:38 AM EDT CORTISOL REFERENCE RANGE 8 AM SPEC: 5.0-23.0 mcg/dL 4 PM SPEC: 3.0-16.0 mcg/dL 8 PM SPEC: <5.0 mcg/dL us Christina Yu MD LAB BLOOD ORDERABLES Final R esult Performing Organization Address City/[facility]/ZIP Co de Phone Number [facility] [address] [place] [address], * (ABNORMAL) Comprehensive metabolic panel (11/23/2024 8:19 AM EDT) Sodium 137 133 - 145 mmol/L LAB CHEMISTRY METHOD 11/23/2024 11:02 AM [facility] Potassium 4.2 3.5 - 5.5 mmol/L LAB CHEMISTRY METHOD 11/23/2024 11:02 AM [facility] Chloride 110 96 - 110 mmol/L LAB CHEMISTRY METHOD 11/23/2024 11:02 AM [facility] CO2 20(L) 21 - 32 mmol/L LAB CHEMISTRY METHOD 11/23/2024 11:02 AM [facility] Anion Gap 7 3 - 11 LAB CHEMISTRY METHOD 11/23/2024 11:02 AM [facility] Glucose 92 70 - 100 mg/dL LAB CHEMISTRY METHOD 11/23/2024 11:02 AM [facility] BUN 16 5 - 25 mg/dL LAB CHEMISTRY METHOD 11/23/2024 11:02 AM [facility] Creatinine 0.95 0.50 - 1.10 mg/dL LAB CHEMISTRY METHOD 11/23/2024 11:02 AM [facility] eGFR 78 >=60 mL/min/1. 73m2 LAB CHEMISTRY METHOD 11/23/2024 11:02 AM [facility] Comment:Calculation based on the Chronic Kidney Disease Epidemiology Collaboration (CKD-EPI) equation refit without adjustment for race. BUN/Creatinine Ratio 16.8 LAB CHEMISTRY METHOD 11/23/2024 11:02 AM [facility] Calcium 9.0 8.5 - 10.5 mg/dL LAB CHEMISTRY METHOD 11/23/2024 11:02 AM [facility] AST (SGOT) 47(H) 10 - 42 unit/L LAB CHEMISTRY METHOD 11/23/2024 11:02 AM EDT [facility] ALT (SGPT) 74(H) 10 - 60 unit/L LAB CHEMISTRY METHOD 11/23/2024 11:02 AM EDT [facility] Alkaline Phosphatase 104 42 - 121 unit/L LAB CHEMISTRY METHOD 11/23/2024 11:02 AM EDT [facility] Total Protein 7.8 6.0 - 8.0 g/dL LAB CHEMISTRY METHOD 11/23/2024 11:02 AM EDT [facility] Albumin 3.2 3.2 - 5.0 g/dL LAB CHEMISTRY METHOD 11/23/2024 11:02 AM EDT [facility] Total Bilirubin 0.4 0.0 - 1.4 mg/dL LAB CHEMISTRY METHOD 11/23/2024 11:02 AM EDT [facility] Blood Venous blood specimen / Unknown Venipuncture / Unknown 11/23/2024 8:19 AM EDT 11/23/2024 8:19 AM EDT us Christina Yu MD LAB BLOOD ORDERABLES Final R esult [facility] [address] [place] [address], from Last [address] [facility] [facility] Care Teams Automobile Service Writer Relationship Specialty Start Date End Date Lavon Richardson MD [address] [place] [address] [address] [place] PCP - General Internal Medicine 08/16/24
== END 2025-01-16 09:26 | disposition home or self-care (01) ==
LOC: HO.NEURO 09:25
PROVIDERS: PCP Internal Medicine; Visit Provider Physical Medicine & Rehabilitation
DX: R25.2 Cramp and spasm (principal); M79.7 Fibromyalgia
CPT/HCPCS: 95886; 95910

== ENCOUNTER → 2025-01-16 09:28 | Outpatient (BNV) | payer OTHER, SELFPAY | PROVIDERS: PCP Internal Medicine; Visit Provider Physical Medicine & Rehabilitation | DX: R25.2 Cramp and spasm (principal) | CPT/HCPCS: 95886; 95910 ==

== ENCOUNTER 2025-01-22 10:19 | Outpatient (AMB) | payer OTHER, SELFPAY ==
--- NOTE | 2025-01-22 10:54 | MHC.OFFVIS ---
Intake Visit Reasons: urinary incontinence Intake Note: New patient presents today for initial visit for urinary incontinence Urology Medication:None Blood Thinner:None Antibiotic Allergies:None PVR:0ml Allergies morphine (MORPHINE) Allergy (Intermediate, Verified 01/22/25 11:29) WBC ELEVATED/ N/V shellfish derived (SHELLFISH DERIVED) Allergy (Intermediate, Verified 01/22/25 11:29) HIVES iodine (IODINE) Allergy (Mild, Verified 01/22/25 11:29) RASH duloxetine Adverse Reaction (Intermediate, Verified 01/22/25 11:29) vomiting Medication List - Last Reconciled 01/22/25 by ELIAN Hernández-PENNY acetazolamide 250 mg PO BID bupropion HCl XL 300 mg PO QAM 30 days cholecalciferol (vitamin D3) (Vitamin D3) 25 mcg PO DAILY clonazepam (Klonopin) 1 mg PO DAILY PRN 30 days fluoxetine 20 mg PO DAILY 30 days fluticasone propion-salmeterol 500-50 mcg/dose (Advair Diskus) 1 inh inhalation BID 30 days gabapentin 800 mg PO QID 30 days hydrocortisone 2.5% 1 appl topical BID PRN hydroxyzine HCl 50 mg PO TID PRN 30 days ipratropium-albuterol 0.5 mg-3 mg(2.5 mg base)/3 mL 3 mL inhalation Q4-6H PRN 30 days iron,carbonyl-vitamin C 65 mg iron- 125 mg (Vitron-C) 1 tab PO DAILY levothyroxine 150 mcg PO DAILY methocarbamol 500 mg PO TID PRN [NEBULIZER Use as directed as needed] omeprazole 40 mg PO DAILY 90 days pantoprazole 40 mg PO DAILY topiramate 100 mg (2 x 50 mg) PO BEDTIME 30 days MDD 100mg Ventolin HFA 90 mcg/actuation (albuterol sulfate) 2 puffs inhalation Q4-6H PRN NS HPI Comments Details: Maiar is a very pleasant 39-year-old female patient of Dr. Richardson. She has a past medical history of cervical intraepithelial neoplasia grade 3, anxiety, chronic migraines, cognitive disorder, multiple environmental allergies, morbid obesity, obstructive sleep apnea, GERD, anemia, hypersomnia, PTSD, bipolar disorder, fibromyalgia, thyroid cancer status post total thyroidectomy 2019, anxiety, asthma, vitamin-D deficiency, and hypothyroidism. She presents to the office today as a new patient for gross hematuria, enuresis, and stress incontinence. In discussion with the patient today she reports symptoms of stress incontinence initially presented 3 years ago however feels most recently she has been experiencing enuresis as well as gross hematuria. When asked she does report a previous history of nicotine dependence however quit 4 years ago. She reports smoking approximately 1 pack of cigarettes per day for 20 years. When asked she does report a previous history of 8 child births 7 vaginally in the last was via due to breech. We did discussed at length potential causes of gross hematuria, enuresis, as well as stress incontinence. We did discussed obtaining CT urogram for further assessment evaluation as well as in office cystoscopy. All questions were answered. In office urinalysis results reviewed with the patient today. 2+ microscopic hematuria. I discussed reasons for blood in the urine may include but are not limited to kidney stones, cancer in the urinary tract, kidney stone disease or inflammatory conditions of the urinary tract. She denies dysuria, foul smelling urine, changes to urinary stream, flank pain, fever, and or chills. [facility] Medical History (Updated 01/22/25 @ 11:40 by Shyanne Gambino [facility]) Gross hematuria ELIZABETH III (cervical intraepithelial neoplasia grade III) with severe dysplasia Anxiety Chronic migraine without aura Cognitive disorder Multiple environmental allergies Morbid obesity with BMI of 60.0-69.9, adult MISAEL (obstructive sleep apnea) GERD (gastroesophageal reflux disease) Anemia Morbid obesity Hypersomnia Loud snoring Blurry vision, bilateral Chronic migraine without aura PTSD (post-traumatic stress disorder) Bipolar depression Depression Morbid obesity with BMI of 45.0-49.9, adult Migraine Bilateral foot pain Fibromyalgia History of thyroid cancer Smoker Papillary thyroid carcinoma Post-surgical hypothyroidism Bilateral lower extremity edema Elevated LFTs Anxiety Asthma Hypothyroidism Cervical lymphadenopathy Vitamin D deficiency Thyroid cancer Surgical History History of esophagogastroduodenoscopy (EGD) Hx of tubal ligation History of surgery Hx of lymph node biopsy Hx of total thyroidectomy (~05/2020) Hx of section Hx of cholecystectomy Family History Father Diabetes Asthma Hypertension Mother Diabetes Hypertension Multiple sclerosis Daughter No problems noted. Daughter No problems noted. Daughter No problems noted. Daughter Deaf Asthma Daughter Deaf Son No problems noted. Son Asthma Son No problems noted. 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 Current occupational exposures/hazards: No Cognitive needs: No Hearing needs: No Vision needs: Yes Female Reproductive History Menstrual Age of Menarche: 12 Review of Systems Const All systems reviewed & are unremarkable except as noted in HPI and below Physical Exam Const General: cooperative, comfortable, no acute distress, well developed, alert and awake Nutritional Appearance: obese Orientation/consciousness: patient oriented x3 Limitations: no limitations HEENT Head: Yes normal to inspection, Yes normocephalic and Yes atraumatic Ears: hearing grossly normal bilaterally Eyes General: appearance normal, both eyes and all related structures Neck Neck: Yes normal visual inspection and Yes trachea midline Chest Chest palpation & inspection: normal inspection of the chest Resp Effort & Inspection: normal respiratory effort and able to speak in complete sentences Cardio Rate: regular rate GI Inspection: Yes normal to inspection General: Yes no CVA tenderness Back/Spine/Pelvis Back: no CVA tenderness Skin General skin exam: no rashes or lesions noted Neuro General: patient oriented x3 Extrem General: Yes normal to inspection Psych Appearance: grossly normal and well kempt Mental Status: mental status grossly normal Speech and movement: Normal speech and movement present and Clear speech present Affect: normal affect Attitude: cooperative Thought process: Normal thought process present Thought content: Normal thought content present Insight: Fair insight present (Psych) Judgement: Fair judgement present (Psych) Assessment & Plan Assessment & Plan (1) Enuresis: Code(s): R32 - Unspecified urinary incontinence (2) Gross hematuria: Code(s): R31.0 - Gross hematuria Category: Medical (3) Stress incontinence: Code(s): N39.3 - Stress incontinence (female) (male) Category: Medical (4) Nicotine dependence in remission: Code(s): F17.201 - Nicotine dependence, unspecified, in remission Category: Medical Plan In office urinalysis results reviewed with the patient today; as noted above; will send for urine cytology. We did discussed potential causes of gross hematuria, enuresis, stress incontinence; we discussed further workup in risks and benefits of these interventions. Will obtain CT urogram for further assessment evaluation. Will obtain BUN and creatinine for imaging. We discussed in office cystoscopy for further assessment evaluation. All questions were answered. Follow-up next available in office cystoscopy with imaging in labs to be completed prior; or sooner with any issues, concerns, and or questions. Orders: Orders Blood Urea Nitrogen Today R39.15 - Urgency of urination CT urogram Today R31.0 - Gross hematuria Creatinine Today R39.15 - Urgency of urination Urine Cytology Today F17.201 - Nicotine dependence, unspecified, in remission, N39.3 - Stress incontinence (female) (male), R31.0 - Gross hematuria, R32 - Unspecified urinary incontinence Patient Instructions: The patient had an opportunity to ask questions regarding the treatment plan. All questions were answered. Physical exam, labs, and imaging were discussed and reviewed in detail. As well as risks, benefits, and discussion of treatment choices. No major barriers to understanding were identified. The patient expressed understanding and agreement with the above treatment plan. The patient was made aware they should contact our office by phone for worsening of their current condition, the appearance of new symptoms, or with any questions or concerns. Compliance is encouraged with any medications and follow up testing that is ordered. It is a privilege to be allowed the opportunity to participate in? your urological care.? Again, if you have any questions or concerns If you have any questions or concerns please do not hesitate to contact me. The office is [phone]. This note is constructed using voice recognition software. While every effort has been made to ensure accuracy mortician supplies sales representative errors may have been included. Yours sincerely, MAGNUS Hernández Coding Level of Care Code New Pt Level 3 (78636) Diagnoses Enuresis R32 Gross hematuria R31.0 Stress incontinence N39.3 Nicotine dependence in remission F17.201
--- OUTSIDE RECORDS SUMMARY | 2025-01-22 11:38 | XMS_ITS | Clinical Summary ---
Author Organization [facility] Address [address] [place] [address] Phone Care Team Providers Care Superintendent [employer] Name Role Phone Lavon Richardson MD Primary [...] Problems Problem Noted Date Diagnosed Date Schizophrenia [place] [place] [facility] [place] Class 3 severe obesity with serious comorbidity and body mass index (BMI) of 60.0 to 69.9 in adult ([facility] [place] [facility] [place] 09/28/2024 PTSD (post-traumatic stress disorder) 09/28/2024 Hepatitis C 09/28/2024 Depression 09/28/2024 Asthma 09/28/2024 Overview (09/28/2024): Poorly controlled. Anxiety 09/28/2024 Grand multiparity with problem Class 3 severe obesity witho ut serious comorbidity with body mass index (BMI) of 50.0 to 59.9 in adult ([facility] [place] [facility] [place] 09/11/2024 Encounters Date Type Department Care Team Description 11/28/2024 Telephone Bariatric Surgery - [address] [phone] 11/27/2024 Telephone Bariatric Surgery [address] [phone] call back (Called pt back ) 11/26/2024 Telephone Bariatric Surgery [address] [phone] Advice Only 11/22/2024 1:30 PM EDT Telemedicine Bariatric Surgery - [address] [place] [address] Class 3 severe obesity with serious comorbidity and body mass index (BMI) of 60.0 to 69.9 in adult, unspecified obesity type ([facility] V24, [facility] V28) (Primary Dx) 11/20/2024 8:45 AM EDT Office Visit Bariatric Surgery - [address] [phone] Christina Yu MD Class 3 severe obesity due to excess calories with body mass index (BMI) of 60.0 to 69.9 in adult, unspecified whether serious comorbidity present ([facility] V24, [facility] V28) (Primary Dx) from Last 3 Months Surgical History Surgery Date Site/Laterality Comments THYROIDECTOMY CHOLECYSTECTOMY SECTION Medical History Medical History Date Comments Multiple sclerosis ([facility] V24, [facility] V28) Thyroid cancer ([facility] V24, [facility] V28) Lymphoma ([facility] V24, [facility] V28) Social History Tobacco Use Types Packs/Day [...] LAB CHEMISTRY METHOD 11/23/2024 11:02 AM EDT [facility] Bilirubin, Direct 0.1 0.0 - 0.3 mg/dL LAB CHEMISTRY METHOD 11/23/2024 11:02 AM EDT [facility] Bilirubin, Indirect 0.3 0.0 - 1.1 mg/dL LAB CHEMISTRY METHOD 11/23/2024 11:02 AM EDT [facility] Blood Venous blood specimen / Unknown Venipuncture / Unknown 11/23/2024 8:19 AM EDT 11/23/2024 8:19 AM EDT us Christina Yu MD LAB BLOOD ORDERABLES Final R esult [facility] [address] [place] [address], [place] [phone] * Lipid panel with reflex to direct LDL (11/23/2024 8:19 AM EDT) Cholesterol 140 0 - 200 mg/dL LAB CHEMISTRY METHOD 11/23/2024 11:02 AM EDT [facility] Triglycerides 84 0 - 150 mg/dL LAB CHEMISTRY METHOD 11/23/2024 [facility] HDL 45 >=40 mg/dL LAB CHEMISTRY METHOD 11/23/2024 11:02 AM EDT [facility] LDL Calculated 78 0 - 100 mg/dL LAB CHEMISTRY METHOD 11/23/2024 11:02 AM EDT [facility] VLDL Cholesterol Corky 16.8 mg/dL LAB CHEMISTRY METHOD 11/23/2024 11:02 AM [facility] Non HDL Chol. (LDL+VLDL) 95 <145 mg/dL LAB CHEMISTRY METHOD 11/23/2024 [facility] Chol/HDL Ratio 3.1 0.0 - 4.4 LAB CHEMISTRY METHOD 11/23/2024 11:02 AM [facility] Blood Venous blood specimen / Unknown Venipuncture / Unknown 11/23/2024 8:19 AM EDT 11/23/2024 8:19 AM EDT us Christina Yu MD LAB BLOOD ORDERABLES Final R esult [facility] [address] [place] [address], [place] [phone] * Nicotine and cotinine (11/23/2024 8:19 AM [...] <2 ng/mL Reference Ranges from: Clin. Chem.; [id number] (2002) Direct any interpretive questions to the toxicology laboratory. This is for medical use only, it is not intended for forensic use. If applicable, any drug confirmation testing reported here was developed and the performance characteristics determined by [facility]. This confirmation testing has not been cleared or approved by the FDA. The laboratory is regulated under CLIA as qualified to perform high-complexity testing. This test is used for patient testing purposes. It should not be regarded as investigational or for research. Test performed at [facility], [address] , [place] [address] Heaven Adler MD, PhD - Exhibit Designer Blood Venous blood specimen / Unknown Venipuncture / Unknown 11/23/2024 8:19 AM EDT 11/23/2024 8:19 AM EDT us Christina Yu MD LAB BLOOD ORDERABLES Final R esult [facility] [address] [place] [address] * (ABNORMAL) CBC auto differential (11/23/2024 8:19 AM EDT) WBC 12.2(H) 4.8 - 10.8 K/[facility] LAB HEMETOLOGY METHOD 11/23/2024 10:27 AM EDT [facility] RBC 4.40 3.80 - 4.80 M/[facility] LAB HEMETOLOGY METHOD 11/23/2024 10:27 AM EDT [facility] Hemoglobin 11.5 11.5 - 16.0 g/dL LAB HEMETOLOGY METHOD 11/23/2024 10:27 AM [facility] Hematocrit 37.2 35.0 - 47.0 % LAB HEMETOLOGY METHOD 11/23/2024 10:27 AM [facility] MCV 84.9 79.0 - 98.0 FL LAB HEMETOLOGY METHOD 11/23/2024 10:27 AM [facility] MCH 26.3(L) 27.0 - 32.0 pcg LAB HEMETOLOGY METHOD 11/23/2024 10:27 AM [facility] MCHC 30.9(L) 32.0 - 37.0 g/dL LAB HEMETOLOGY METHOD 11/23/2024 10:27 AM [facility] RDW 17.2(H) 11.0 - 15.0 % LAB HEMETOLOGY METHOD 11/23/2024 10:27 AM [facility] Platelets 420(H) 130 - 400 K/mcL LAB HEMETOLOGY METHOD 11/23/2024 10:27 AM [facility] MPV 8.9 7.0 - 11.0 FL LAB HEMETOLOGY METHOD 11/23/2024 10:27 AM [facility] NRBC 0.0 <1.0 % LAB HEMETOLOGY METHOD 11/23/2024 10:27 AM [facility] NRBC Absolute 0.00 <0.10 K/mcL LAB HEMETOLOGY METHOD 11/23/2024 10:27 AM [facility] Neutrophils Relative 59.9 % LAB HEMETOLOGY METHOD 11/23/2024 10:27 AM [facility] Lymphocytes Relative 28.5 % LAB HEMETOLOGY METHOD 11/23/2024 10:27 AM [facility] Monocytes Relative 6.6 % LAB HEMETOLOGY METHOD 11/23/2024 10:27 AM EDT [facility] Eosinophils Relative 3.9 % LAB HEMETOLOGY METHOD 11/23/2024 10:27 AM EDT [facility] Basophils Relative 0.5 % LAB HEMETOLOGY METHOD 11/23/2024 10:27 AM EDT [facility] Immature Granulocytes Relative 0.6 % LAB HEMETOLOGY METHOD 11/23/2024 10:27 AM EDT [facility] Neutrophils Absolute 7.32(H) 1.50 - 7.00 K/mcL LAB HEMETOLOGY METHOD 11/23/2024 10:27 AM EDT [facility] Lymphocytes Absolute 3.48 1.00 - 5.00 K/mcL LAB HEMETOLOGY METHOD 11/23/2024 10:27 AM EDT [facility] Monocytes Absolute 0.80 0.20 - 1.00 K/mcL LAB HEMETOLOGY METHOD 11/23/2024 10:27 AM EDT [facility] Eosinophils Absolute 0.47 0.00 - 0.50 K/mcL LAB HEMETOLOGY METHOD 11/23/2024 10:27 AM [facility] Basophils Absolute 0.06 0.00 - 0.20 K/mcL LAB HEMETOLOGY METHOD 11/23/2024 10:27 AM EDT [facility] Immature Granulocytes Absolute 0.07(H) 0.00 - 0.03 K/mcL LAB HEMETOLOGY METHOD 11/23/2024 10:27 AM T [facility] Blood Venous blood specimen / Unknown Venipuncture / Unknown 11/23/2024 8:19 AM EDT 11/23/2024 8:19 AM EDT us Christina Yu MD LAB BLOOD ORDERABLES Final R esult [facility] [address] [place] [address], [place] [phone] * (ABNORMAL) Iron and TIBC (11/23/2024 8:19 AM EDT) Pathologist [facility] Iron 38(L) 40 - 150 mcg/dL LAB CHEMISTRY METHOD 11/23/2024 11:02 AM EDT [facility] TIBC 436 250 - 450 mcg/dL LAB CHEMISTRY METHOD 11/23/2024 11:02 AM EDT [facility] Iron Saturation 9(L) 15 - 50 % LAB CHEMISTRY METHOD 11/23/2024 11:02 AM EDT [facility] Blood Venous blood specimen / Unknown Venipuncture / Unknown 11/23/2024 8:19 AM EDT 11/23/2024 8:19 AM EDT us Christina Yu MD LAB BLOOD ORDERABLES Final R esult [facility] [address] [place] [address], [place] [phone] * Helicobacter pylori breath test (11/23/2024 8:19 AM EDT) [facility] H Pylori Breath Test Negative Negative LAB CHEMISTRY METHOD 11/23/2024 10:47 AM EDT [facility] Breath Oral cavity structure / Unknown Non-blood Collection / Unknown 11/23/2024 8:19 AM EDT 11/23/2024 8:19 AM EDT us Christina Yu MD LAB BODY FLUIDS AND STOOLS O RDERABLES Final Result [facility] [address] [place] [address], [place] [phone] * Vitamin D 25 hydroxy (11/23/2024 8:19 AM EDT) [facility] Vit D, 25-Hydroxy 39.4 30.0 - 80.0 ng/mL LAB CHEMISTRY METHOD 11/23/2024 11:38 AM EDT [facility] Blood Venous blood specimen / Unknown Venipuncture / Unknown 11/23/2024 8:19 AM EDT 11/23/2024 8:19 AM EDT us Christina Yu MD LAB BLOOD ORDERABLES Final R esult Performing Organization Address [facility]/ZIP Co de Phone Number [facility] [address] [place] [address], [place] [phone] * Thyroid stimulating hormone (11/23/2024 8:19 AM EDT) [facility] TSH 0.69 0.40 - 4.00 mcIU/mL LAB CHEMISTRY METHOD 11/23/2024 11:38 AM EDT [facility] Blood Venous blood specimen / Unknown Venipuncture / Unknown 11/23/2024 8:19 AM EDT 11/23/2024 8:19 AM EDT us Christina Yu MD LAB BLOOD ORDERABLES Final R esult Performing Organization Address [facility] Co de Phone Number [facility] [address] [place] [address], [place] [phone] * Vitamin B1 (11/23/2024 8:19 AM EDT) [facility] Vitamin B1 Whole Blood 68 38 - 122 ug/L 11/28/2024 6:40 AM EDT [facility] Comment: This test was developed and the performance characteristics determined by [facility]. It has not been cleared or approved by the FDA. The laboratory is regulated under CLIA as qualified to perform high-complexity testing. This test is used for patient testing purposes. It should not be regarded as investigational or for research. Test performed at [facility], [facility] [address] , [place] [address] Heaven Adler MD, PhD - Exhibit Designer Blood Venous blood specimen / Unknown Venipuncture / Unknown 11/23/2024 8:19 AM EDT 11/23/2024 8:19 AM EDT us Christina Yu MD LAB BLOOD ORDERABLES Final R esult [facility] [address] [place] [address] * Parathyroid hormone intact (11/23/2024 8:19 AM EDT) PTH 60.2 18.5 - 88.0 pcg/mL LAB CHEMISTRY METHOD 11/23/2024 12:03 PM EDT [facility] Blood Venous blood specimen / Unknown Venipuncture / Unknown 11/23/2024 8:19 AM EDT 11/23/2024 8:19 AM EDT Christina Yu MD LAB BLOOD ORDERABLES Final R esult Performing Organization Address [facility] Co de Phone Number [facility] [address] [place] [address], [place] [phone] * Magnesium (11/23/2024 8:19 AM EDT) Magnesium 2.1 1.9 - 2.6 mg/dL LAB CHEMISTRY METHOD 11/23/2024 10:37 AM EDT [facility] Blood Venous blood specimen / Unknown Venipuncture / Unknown 11/23/2024 8:19 AM EDT 11/23/2024 8:19 AM EDT us Christina Yu MD LAB BLOOD ORDERABLES Final R esult Performing Organization Address City/[facility]/ZIP Co de Phone Number [facility] [address] [place] [address], [place] [phone] * Hemoglobin A1c (11/23/2024 8:19 AM EDT) Hemoglobin A1C 5.9 <6.5 % LAB CHEMISTRY METHOD 11/23/2024 12:36 PM EDT [facility] Mean Bld Glu Estim. 123 mg/dL LAB CHEMISTRY METHOD 11/23/2024 12:36 PM EDT [facility] Blood Venous blood specimen / Unknown Venipuncture / Unknown 11/23/2024 8:19 AM EDT 11/23/2024 8:19 AM EDT Christina Yu MD LAB BLOOD ORDERABLES Final R esult [facility] [address] [place] [address], * Folate (11/23/2024 8:19 AM EDT) Pathologist [facility] Folate 9.7 2.8 - 17.0 ng/ml LAB CHEMISTRY METHOD 11/23/2024 11:02 AM EDT [facility] Blood Venous blood specimen / Unknown Venipuncture / Unknown 11/23/2024 8:19 AM EDT 11/23/2024 8:19 AM EDT Christina Yu MD LAB BLOOD ORDERABLES Final R esult [facility] [address] [place] [address], [place] [phone] * Ferritin (11/23/2024 8:19 AM EDT) Ferritin 13 8 - 252 ng/mL LAB CHEMISTRY METHOD 11/23/2024 11:02 AM EDT [facility] Blood Venous blood specimen / Unknown Venipuncture / Unknown 11/23/2024 8:19 AM EDT 11/23/2024 8:19 AM EDT us Christina Yu MD LAB BLOOD ORDERABLES Final R esult Performing Organization Address [facility]/ZIP Co de Phone Number [facility] [address] [place] [address], [place] [phone] * Vitamin B12 (11/23/2024 8:19 AM EDT) [facility] Vitamin B-12 368 250 - 900 pcg/mL LAB CHEMISTRY METHOD 11/23/2024 11:02 AM EDT [facility] Blood Venous blood specimen / Unknown Venipuncture / Unknown 11/23/2024 8:19 AM EDT 11/23/2024 8:19 AM EDT us Christina Yu MD LAB BLOOD ORDERABLES Final R esult Performing Organization Address [facility] Co de Phone Number [facility] [address] [place] [address], [place] [phone] * Cortisol (11/23/2024 8:19 AM EDT) [facility] Cortisol 8.0 mcg/dL LAB CHEMISTRY METHOD 11/23/2024 11:38 AM EDT [facility] Blood Venous blood specimen / Unknown Venipuncture / Unknown 11/23/2024 8:19 AM EDT 11/23/2024 8:19 AM EDT Narrative [facility] - 11/23/2024 11:38 AM EDT CORTISOL REFERENCE RANGE 8 AM SPEC: 5.0-23.0 mcg/dL 4 PM SPEC: 3.0-16.0 mcg/dL 8 PM SPEC: <5.0 mcg/dL us Christina Yu MD LAB BLOOD ORDERABLES Final R esult Performing Organization Address City/[facility]/ZIP Co de Phone Number [facility] [address] [place] [address], * (ABNORMAL) Comprehensive metabolic panel (11/23/2024 8:19 AM EDT) Sodium 137 133 - 145 mmol/L LAB CHEMISTRY METHOD 11/23/2024 11:02 AM [facility] Potassium 4.2 3.5 - 5.5 mmol/L LAB CHEMISTRY METHOD 11/23/2024 11:02 AM [facility] Chloride 110 96 - 110 mmol/L LAB CHEMISTRY METHOD 11/23/2024 11:02 AM [facility] CO2 20(L) 21 - 32 mmol/L LAB CHEMISTRY METHOD 11/23/2024 11:02 AM [facility] Anion Gap 7 3 - 11 LAB CHEMISTRY METHOD 11/23/2024 11:02 AM [facility] Glucose 92 70 - 100 mg/dL LAB CHEMISTRY METHOD 11/23/2024 11:02 AM [facility] BUN 16 5 - 25 mg/dL LAB CHEMISTRY METHOD 11/23/2024 11:02 AM [facility] Creatinine 0.95 0.50 - 1.10 mg/dL LAB CHEMISTRY METHOD 11/23/2024 11:02 AM [facility] eGFR 78 >=60 mL/min/1. 73m2 LAB CHEMISTRY METHOD 11/23/2024 11:02 AM [facility] Comment:Calculation based on the Chronic Kidney Disease Epidemiology Collaboration (CKD-EPI) equation refit without adjustment for race. BUN/Creatinine Ratio 16.8 LAB CHEMISTRY METHOD 11/23/2024 11:02 AM [facility] Calcium 9.0 8.5 - 10.5 mg/dL LAB CHEMISTRY METHOD 11/23/2024 11:02 AM [facility] AST (SGOT) 47(H) 10 - 42 unit/L LAB CHEMISTRY METHOD 11/23/2024 11:02 AM EDT [facility] ALT (SGPT) 74(H) 10 - 60 unit/L LAB CHEMISTRY METHOD 11/23/2024 11:02 AM EDT [facility] Alkaline Phosphatase 104 42 - 121 unit/L LAB CHEMISTRY METHOD 11/23/2024 11:02 AM EDT [facility] Total Protein 7.8 6.0 - 8.0 g/dL LAB CHEMISTRY METHOD 11/23/2024 11:02 AM EDT [facility] Albumin 3.2 3.2 - 5.0 g/dL LAB CHEMISTRY METHOD 11/23/2024 11:02 AM EDT [facility] Total Bilirubin 0.4 0.0 - 1.4 mg/dL LAB CHEMISTRY METHOD 11/23/2024 11:02 AM EDT [facility] Blood Venous blood specimen / Unknown Venipuncture / Unknown 11/23/2024 8:19 AM EDT 11/23/2024 8:19 AM EDT us Christina Yu MD LAB BLOOD ORDERABLES Final R esult [facility] [address] [place] [address], from Last 3 Months Insurance [facility] Care Teams Superintendent [employer] Relationship Specialty Start Date End Date Lavon Richardson MD [address] [place] [address] [address] [place] PCP - General Internal Medicine 08/16/24
== END 2025-01-22 11:31 | disposition home or self-care (01) ==
LOC: HO.HUSH 10:20
PROVIDERS: PCP Internal Medicine; Visit Provider Nurse Practitioner Family
DX: N39.3 Stress incontinence (female) (male) (principal); R31.0 Gross hematuria; F17.201 Nicotine dependence, unspecified, in remission; Z13.9 Encounter for screening, unspecified
CPT/HCPCS: 99203

== ENCOUNTER 2025-01-22 10:19 | Outpatient (REF) | payer OTHER, SELFPAY | END 2025-01-22 10:20 | disposition home or self-care (01) | LOC: HO.LAB 10:19 | PROVIDERS: PCP Internal Medicine; Visit Provider Nurse Practitioner Family | DX: N39.3 Stress incontinence (female) (male) (principal); R31.0 Gross hematuria; F17.201 Nicotine dependence, unspecified, in remission; R39.15 Urgency of urination; Z79.899 Other long term (current) drug therapy | CPT/HCPCS: 81003; 88112; 99202 ==

== ENCOUNTER 2025-02-01 10:48 | Outpatient (AMB) | payer OTHER, SELFPAY ==
--- NOTE | 2025-02-01 10:50 | MHC.PC.OV ---
Vital Signs 02/01/25 10:53 Height 5 ft 2 in Weight 324 lb BMI 59.3 BP 120/74 Blood Pressure Location Lt brachial Position Sitting Pulse 102 H Pulse Source Pulse Oximeter Temp 97.1 F Temp Source Temporal Artery Scan Pulse Oximetry (%) 98 Oxygen Delivery Method Room Air Intake Visit Reasons: [facility] 01/11 Intake Note: Patient is here for hospital discharge follow up. Patient was discharged from [facility] on 01/11/25. Pulling Unit Floorhand Required: No Box Spring Maker: Not Required per policy Accompanied by: Self / Same As Patient Allergies morphine (MORPHINE) Allergy (Intermediate, Verified 02/01/25 10:53) WBC ELEVATED/ N/V shellfish derived (SHELLFISH DERIVED) Allergy (Intermediate, Verified 02/01/25 10:53) HIVES iodine (IODINE) Allergy (Mild, Verified 02/01/25 10:53) RASH duloxetine Adverse Reaction (Intermediate, Verified 02/01/25 10:53) vomiting Tobacco use date assessed: 02/01/25 Dental Screening Dental Screen Date: 08/01/24 HPI HPI Comments History of Present Illness Details 39 y/o Female patient who presents to the clinic today for HDF. She was admitted at [facility] on 01/[facility] - 01/11 for evaluation and treatment of Suicidal Ideation. Pmhx significant for Bipolar disorder, Depression and anxiety. She recently lost her Support/Emotional Dog - Dog was sick. Grief Took Over and [place] it was not ok for her to continue leaving without her Dog. Today denies SA or SI. She on a waiting List for Psych and therapy @ [facility]. [facility] Medical History (Updated 01/22/25 @ 11:40 [facility] Gross hematuria ELIZABETH III (cervical intraepithelial neoplasia grade III) with severe dysplasia Anxiety Chronic migraine without aura Cognitive disorder Multiple environmental allergies Morbid obesity with BMI of 60.0-69.9, adult MISAEL (obstructive sleep apnea) GERD (gastroesophageal reflux disease) Anemia Morbid obesity Hypersomnia Loud snoring Blurry vision, bilateral Chronic migraine without aura PTSD (post-traumatic stress disorder) Bipolar depression Depression Morbid obesity with BMI of 45.0-49.9, adult Migraine Bilateral foot pain Fibromyalgia History of thyroid cancer Smoker Papillary thyroid carcinoma Post-surgical hypothyroidism Bilateral lower extremity edema Elevated LFTs Anxiety Asthma Hypothyroidism Cervical lymphadenopathy Vitamin D deficiency Thyroid cancer Surgical History History of esophagogastroduodenoscopy (EGD) Hx of tubal ligation History of surgery Hx of lymph node biopsy Hx of total thyroidectomy (~05/2020) Hx of section Hx of cholecystectomy Family History Father Diabetes Asthma Hypertension Mother Diabetes Hypertension Multiple sclerosis Daughter No problems noted. Daughter No problems noted. Daughter No problems noted. Daughter Deaf Asthma Daughter Deaf Son No problems noted. Son Asthma Son No problems noted. 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 1. Little interest or pleasure in doing things: several days 2. Feeling down, depressed, or hopeless: several days 3. Trouble falling or staying asleep, or sleeping too much: several days 4. Feeling tired or having little energy: several days 5. Poor appetite or overeating: not at all 6. Feeling bad about yourself - or that you are a failure or have let yourself or your family down: more than half the days 7. Trouble concentrating on things, such as reading the newspaper or watching television: more than half the days 8. Moving or speaking so slowly that other people could have noticed. Or the opposite - being so fidgety or restless that you have been moving around a lot more than usual: several days 9. Thoughts that you would be better off or of hurting yourself in some way: not at all Total score: 9 Depression Screening Interpretation: Positive Depression Screening Done: Yes Source: Developed by Drs. Alexander Avila, Shirlene Travis, Valdemar Cruz and colleagues, with an educational dilma from [employer]. Thrive Questionnaire Date Thrive assessed: 06/29/24 I am a: Patient What is your living situation today?: I have a steady place to live Within the past 12 months, did the food you bought not last and you didn't have the money to get more?: Often true Within the past 12 months, did you worry whether your food would run out before you got money to buy more?: Never true Do you have trouble paying for medicines?: No Do you have trouble getting transportation to medical appointments?: No Do you have trouble paying your heating and electricity bill?: No Do you have trouble taking care of your child, family member or friend?: No Do you have trouble with day-to-day activities such as bathing, preparing meals, shopping, managing finances, etc.?: Yes Are you currently unemployed and looking for a job?: Yes Are you interested in more education?: I choose not to answer this question Please select the resources that you would like help with: None Currently or been in a relationship where the following occur: I choose not to answer THRIVE Score: 1 AUDIT C Alcohol Use Questionnaire (AUDIT-C) 1. How often do you have a drink containing alcohol?: Monthly or less 2. How many drinks containing alcohol do you have on a typical day when you are drinking?: 1 or 2 3. How often do you have six or more drinks on one occasion?: Never Total Score: 1 RUSSELL-7 AMB Questionnaire RUSSELL-7 Date RUSSELL - 7 assessed: 02/01/25 Feeling nervous, anxious, or on edge: 1 = Several days Not being able to stop or control worryin = Several days Worrying too much about different things: 0 = Not at all Trouble relaxin = Several days Being so restless that it is hard to sit still: 0 = Not at all Becoming easily annoyed or irritable: 0 = Not at all Feeling afraid as if something awful might happen: 0 = Not at all Total RUSSELL-7 score (0-4 normal; 5-9 mild; 10-14 moderate; 15-21 severe): 3 Source: Developed by Shirlene Ruiz B.W. Thaddeus, Valdemar Cruz and colleagues, with an educational dilma from [employer]. Review of Systems Const All systems reviewed & are unremarkable except as noted in HPI and below Physical exam (Primary Care) Vital Signs: Last Vital Signs Temp 97.1 F 02/01/25 10:53 Pulse 102 H 02/01/25 10:53 BP 120/74 02/01/25 10:53 Pulse Ox 98 02/01/25 10:53 Oxygen Delivery Method Room Air 02/01/25 10:53 BMI result Body Mass Index 59.3 Tobacco/Smoking Status: Tobacco use Status Tobacco use date assessed 02/01/25 02/01/25 10:59 Patient Tobacco Use Status Former Tobacco user 02/01/25 10:59 Tobacco use type Cigarette 02/01/25 10:59 e-Cigarette/Vaping Use Former Use 02/01/25 10:59 PHQ-9: PHQ-9 Score PHQ-9: Total score 9 02/01/25 10:59 Depression Screening Interpretation: Positive Thrive Assessment: Date of Thrive Assessment Date Thrive assessed 06/29/24 02/01/25 10:59 Currently or been in a relationship where the following occur: I choose not to answer Const General: no acute distress Nutritional Appearance: obese morbidly obese Orientation/consciousness: patient oriented x3 Neuro General: patient oriented x3, gait normal and moves all extremities Psych Speech and movement: Normal speech and movement present Affect: normal affect Attitude: cooperative Thought process: Normal thought process present Thought content: suicidality, no homicidality and no delusions Insight: Good insight present (Psych) Coding Level of Care Code Est Pt Level 4 (14429) Diagnoses Suicidal ideation R45.851 Time Spent (min) 20 Assessment & Plan Assessment & Plan (1) Suicidal ideation: Code(s): R45.851 - Suicidal ideations Category: Medical Plan: Stable. Denies SA or SI Continue f/u with PCP.
[2025-02-01 10:53] VITALS: BP 120/74; PULSE 102; TEMP 36.2; O2SAT 98; BMI 59.3
--- OUTSIDE RECORDS SUMMARY | 2025-02-01 11:28 | XMS_ITS | Clinical Summary ---
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 Name Role Phone Lavon Richardson MD Primary Care Provider [phone] Allergies Active Allergy Reactions Criticality Noted Date [...] sulfate 325 mg (65 mg iron) EC tabletIndications: Iron deficiency TAKE 1 TABLET BY MOUTH ONCE DAILY DO NOT CRUSH, CHEW, OR SPLIT 30 tablet 12/26/19 Active Active Problems Problem Noted Date Diagnosed Date Schizophrenia ([facility] V24, [facility] V28) 025 Class 3 severe obesity with serious comorbidity and body mass index (BMI) of 60.0 to 69.9 in adult ([facility] V24, [facility] V28) 09/28/2024 PTSD (post-traumatic stress disorder) 09/28/2024 Hepatitis C 09/28/2024 Depression 09/28/2024 Asthma 09/28/2024 Overview (09/28/2024): Poorly controlled. Anxiety 09/28/2024 Grand multiparity with problem 025 Class 3 severe obesity witho ut serious comorbidity with body mass index (BMI) of 50.0 to 59.9 in adult ([facility] V24, [facility] V28) 09/11/2024 Encounters Date Type Department Care Team Description 11/28/2024 Telephone Bariatric Surgery [address] [phone] 11/27/2024 Telephone Bariatric Surgery [address] [phone] 11/26/2024 Telephone Bariatric Surgery [address] [phone] 11/22/2024 1:30 PM EDT Telemedicine Bariatric Surgery [address] [phone] Class 3 severe obesity with serious comorbidity and body mass index (BMI) of 60.0 to 69.9 in adult, unspecified obesity type ([facility] V24, [facility] V28) (Primary Dx) 11/20/2024 8:45 AM EDT Office Visit Bariatric Surgery - [address] [place] [address] Christina Yu MD Class 3 severe obesity due to excess calories with body mass index (BMI) of 60.0 to 69.9 in adult, unspecified whether serious comorbidity present ([facility] V24, [facility] V28) (Primary Dx) from Last 3 Months Surgical History Surgery Date Site/Laterality Comments THYROIDECTOMY CHOLECYSTECTOMY SECTION Medical History Medical History Date Comments Multiple sclerosis ([facility] V24, [facility] V28) Thyroid cancer ([facility] V24, [facility] V28) Lymphoma ([facility] V24, [facility] V28) Social History [...] to 69.9 in adult, unspecified obesity type ([facility] V24, [facility] V28) VITAMIN D 25 HYDROXY Routine 11/23/2024 8:19 AM EDT Class 3 severe obesity with serious comorbidity and body mass index (BMI) of 60.0 to 69.9 in adult, unspecified obesity type ([facility] V24, [facility] V28) from Last 3 Months Results * Bilirubin duplicate procedure to order (11/23/2024 8:19 AM EDT) Total Bilirubin 0.4 0.0 - 1.4 mg/dL LAB CHEMISTRY METHOD 11/23/2024 11:02 AM EDT [facility] Bilirubin, Direct 0.1 0.0 - 0.3 mg/dL LAB CHEMISTRY METHOD 11/23/2024 11:02 AM EDT [facility] Bilirubin, Indirect 0.3 0.0 - 1.1 mg/dL LAB CHEMISTRY METHOD 11/23/2024 11:02 AM EDT [facility] Blood Venous blood specimen / Unknown Venipuncture / Unknown 11/23/2024 8:19 AM EDT 11/23/2024 8:19 AM EDT us Christina Yu MD LAB BLOOD ORDERABLES Final R esult [facility] [address] [place] [address], * Lipid panel with reflex to direct LDL (11/23/2024 8:19 AM EDT) Cholesterol 140 0 - 200 mg/dL LAB CHEMISTRY METHOD 11/23/2024 11:02 AM EDT [facility] Triglycerides 84 0 - 150 mg/dL LAB CHEMISTRY METHOD 11/23/2024 11:02 AM EDT [facility] HDL 45 >=40 mg/dL LAB CHEMISTRY METHOD 11/23/2024 11:02 AM EDT [facility] LDL Calculated 78 0 - 100 mg/dL LAB CHEMISTRY METHOD 11/23/2024 11:02 AM EDT [facility] VLDL Cholesterol Corky 16.8 mg/dL LAB CHEMISTRY METHOD 11/23/2024 11:02 AM EDT [facility] Non HDL Chol. (LDL+VLDL) 95 <145 mg/dL LAB CHEMISTRY METHOD 11/23/2024 11:02 AM EDT [facility] Chol/HDL Ratio 3.1 0.0 - 4.4 LAB CHEMISTRY METHOD 11/23/2024 11:02 AM EDT [facility] Blood Venous blood specimen / Unknown Venipuncture / Unknown 11/23/2024 8:19 AM EDT 11/23/2024 8:19 AM EDT us Christina Yu MD LAB BLOOD ORDERABLES Final R esult [facility] [address] [place] [address], * Nicotine and cotinine (11/23/2024 8:19 AM [...] <2 ng/mL Reference Ranges from: Clin. Chem.; [id number] (2002) Direct any interpretive questions to the toxicology laboratory. This is for medical use only, it is not intended for forensic use. If applicable, any drug confirmation testing reported here was developed and the performance characteristics determined by [facility]. This confirmation testing has not been cleared or approved by the FDA. The laboratory is regulated under CLIA as qualified to perform high-complexity testing. This test is used for patient testing purposes. It should not be regarded as investigational or for research. Test performed at [facility], [address] , [place], [place] [id number] Heaven Adler MD, PhD - [employer] Blood Venous blood specimen / Unknown Venipuncture / Unknown 11/23/2024 8:19 AM EDT 11/23/2024 8:19 AM EDT us Christina Yu MD LAB BLOOD ORDERABLES Final R esult [facility] [address] [place] [address] * (ABNORMAL) CBC auto differential (11/23/2024 8:19 AM EDT) WBC 12.2(H) 4.8 - 10.8 K/mcL LAB HEMETOLOGY METHOD 11/23/2024 10:27 AM EDT [facility] RBC 4.40 3.80 - 4.80 M/mcL LAB HEMETOLOGY METHOD 11/23/2024 10:27 AM EDT [facility] Hemoglobin 11.5 11.5 - 16.0 g/dL LAB HEMETOLOGY METHOD 11/23/2024 10:27 AM EDT [facility] Hematocrit 37.2 35.0 - 47.0 % LAB HEMETOLOGY METHOD 11/23/2024 10:27 AM [facility] MCV 84.9 79.0 - 98.0 FL LAB HEMETOLOGY METHOD 11/23/2024 10:27 AM [facility] MCH 26.3(L) 27.0 - 32.0 pcg LAB HEMETOLOGY METHOD 11/23/2024 10:27 AM [facility] MCHC 30.9(L) 32.0 - 37.0 g/dL LAB HEMETOLOGY METHOD 11/23/2024 10:27 AM [facility] RDW 17.2(H) 11.0 - 15.0 % LAB HEMETOLOGY METHOD 11/23/2024 10:27 AM [facility] Platelets 420(H) 130 - 400 K/mcL LAB HEMETOLOGY METHOD 11/23/2024 10:27 AM [facility] MPV 8.9 7.0 - 11.0 FL LAB HEMETOLOGY METHOD 11/23/2024 10:27 AM [facility] NRBC 0.0 <1.0 % LAB HEMETOLOGY METHOD 11/23/2024 10:27 AM [facility] NRBC Absolute 0.00 <0.10 K/mcL LAB HEMETOLOGY METHOD 11/23/2024 10:27 AM [facility] Neutrophils Relative 59.9 % LAB HEMETOLOGY METHOD 11/23/2024 10:27 AM [facility] Lymphocytes Relative 28.5 % LAB HEMETOLOGY METHOD 11/23/2024 10:27 AM [facility] Monocytes Relative 6.6 % LAB HEMETOLOGY METHOD 11/23/2024 10:27 AM [facility] Eosinophils Relative 3.9 % LAB HEMETOLOGY METHOD 11/23/2024 10:27 AM [facility] Basophils Relative 0.5 % LAB HEMETOLOGY METHOD 11/23/2024 10:27 AM EDT [facility] Immature Granulocytes Relative 0.6 % LAB HEMETOLOGY METHOD 11/23/2024 10:27 AM EDT [facility] Neutrophils Absolute 7.32(H) 1.50 - 7.00 K/mcL LAB HEMETOLOGY METHOD 11/23/2024 10:27 AM EDT [facility] Lymphocytes Absolute 3.48 1.00 - 5.00 K/mcL LAB HEMETOLOGY METHOD 11/23/2024 10:27 AM EDT [facility] Monocytes Absolute 0.80 0.20 - 1.00 K/mcL LAB HEMETOLOGY METHOD 11/23/2024 10:27 AM EDT [facility] Eosinophils Absolute 0.47 0.00 - 0.50 K/mcL LAB HEMETOLOGY METHOD 11/23/2024 10:27 AM EDT [facility] Basophils Absolute 0.06 0.00 - 0.20 K/mcL LAB HEMETOLOGY METHOD 11/23/2024 10:27 AM EDT [facility] Immature Granulocytes Absolute 0.07(H) 0.00 - 0.03 K/mcL LAB HEMETOLOGY METHOD 11/23/2024 10:27 AM EDT [facility] Blood Venous blood specimen / Unknown Venipuncture / Unknown 11/23/2024 8:19 AM EDT 11/23/2024 8:19 AM EDT us Christina Yu MD LAB BLOOD ORDERABLES Final R esult [facility] [address] [place] [address], * (ABNORMAL) Iron and TIBC (11/23/2024 8:19 AM EDT) [facility] Signature Iron 38(L) 40 - 150 mcg/dL LAB CHEMISTRY METHOD 11/23/2024 11:02 AM EDT [facility] TIBC 436 250 - 450 mcg/dL LAB CHEMISTRY METHOD 11/23/2024 11:02 AM EDT [facility] Iron Saturation 9(L) 15 - 50 % LAB CHEMISTRY METHOD 11/23/2024 11:02 AM EDT [facility] Blood Venous blood specimen / Unknown Venipuncture / Unknown 11/23/2024 8:19 AM EDT 11/23/2024 8:19 AM EDT us Christina Yu MD LAB BLOOD ORDERABLES Final R esult Performing Organization Address City/[facility]/ZIP Co de Phone Number [facility] [address] [place] [address], [place] [phone] * Helicobacter pylori breath test (11/23/2024 8:19 AM EDT) H Pylori Breath Test Negative Negative LAB CHEMISTRY METHOD 11/23/2024 10:47 AM EDT [facility] Breath Oral cavity structure / Unknown Non-blood Collection / Unknown 11/23/2024 8:19 AM EDT 11/23/2024 8:19 AM EDT us Christina Yu MD LAB BODY FLUIDS AND STOOLS O RDERABLES Final Result [facility] [address] [place] [address], [place] [phone] * Vitamin D 25 hydroxy (11/23/2024 8:19 AM EDT) Vit D, 25-Hydroxy 39.4 30.0 - 80.0 ng/mL LAB CHEMISTRY METHOD 11/23/2024 11:38 AM EDT [facility] Blood Venous blood specimen / Unknown Venipuncture / Unknown 11/23/2024 8:19 AM EDT 11/23/2024 8:19 AM EDT us Christina Yu MD LAB BLOOD ORDERABLES Final R esult Performing Organization Address [facility]/ZIP Co de Phone Number [facility] [address] [place] [address], [place] [phone] * Thyroid stimulating hormone (11/23/2024 8:19 AM EDT) [facility] TSH 0.69 0.40 - 4.00 mcIU/mL LAB CHEMISTRY METHOD 11/23/2024 11:38 AM EDT [facility] Blood Venous blood specimen / Unknown Venipuncture / Unknown 11/23/2024 8:19 AM EDT 11/23/2024 8:19 AM EDT us Christina Yu MD LAB BLOOD ORDERABLES Final R esult Performing Organization Address [facility] Co de Phone Number [facility] [address] [place] [address], [place] [phone] * Vitamin B1 (11/23/2024 8:19 AM EDT) [facility] Vitamin B1 Whole Blood 68 38 - 122 ug/L 11/28/2024 6:40 AM EDT [facility] Comment: This test was developed and the performance characteristics determined by [facility]. It has not been cleared or approved by the FDA. The laboratory is regulated under CLIA as qualified to perform high-complexity testing. This test is used for patient testing purposes. It should not be regarded as investigational or for research. Test performed at [facility], [address] , [place] [address] Heaven Adler MD, PhD - [employer] Blood Venous blood specimen / Unknown Venipuncture / Unknown 11/23/2024 8:19 AM EDT 11/23/2024 8:19 AM EDT us Christina Yu MD LAB BLOOD ORDERABLES Final R esult [place] [place] [address] * Parathyroid hormone intact (11/23/2024 8:19 AM EDT) PTH 60.2 18.5 - 88.0 pcg/mL LAB CHEMISTRY METHOD 11/23/2024 12:03 PM EDT [facility] Blood Venous blood specimen / Unknown Venipuncture / Unknown 11/23/2024 8:19 AM EDT 11/23/2024 8:19 AM EDT us Christina Yu MD LAB BLOOD ORDERABLES Final R esult Performing Organization Address City/[facility]/ZIP Co de Phone Number [facility] [address] [place] [address], [place] [phone] * Magnesium (11/23/2024 8:19 AM EDT) Magnesium 2.1 1.9 - 2.6 mg/dL LAB CHEMISTRY METHOD 11/23/2024 10:37 AM EDT [facility] Blood Venous blood specimen / Unknown Venipuncture / Unknown 11/23/2024 8:19 AM EDT 11/23/2024 8:19 AM EDT us Christina Yu MD LAB BLOOD ORDERABLES Final R esult [facility] [address] [place] [address], [place] [phone] * Hemoglobin A1c (11/23/2024 8:19 AM EDT) Hemoglobin A1C 5.9 <6.5 % LAB CHEMISTRY METHOD 11/23/2024 12:36 PM EDT [facility] Mean Bld Glu Estim. 123 mg/dL LAB CHEMISTRY METHOD 11/23/2024 12:36 PM EDT [facility] Blood Venous blood specimen / Unknown Venipuncture / Unknown 11/23/2024 8:19 AM EDT 11/23/2024 8:19 AM EDT us Christina Yu MD LAB BLOOD ORDERABLES Final R esult Performing Organization Address City/[facility] Co de Phone Number [facility] [address] [place] [address], [place] [phone] * Folate (11/23/2024 8:19 AM EDT) Pathologist [facility] Folate 9.7 2.8 - 17.0 ng/ml LAB CHEMISTRY METHOD 11/23/2024 11:02 AM EDT [facility] Blood Venous blood specimen / Unknown Venipuncture / Unknown 11/23/2024 8:19 AM EDT 11/23/2024 8:19 AM EDT us Christina Yu MD LAB BLOOD ORDERABLES Final R esult Performing Organization Address [facility] Co de Phone Number [facility] [address] [place] [address], [place] [phone] * Ferritin (11/23/2024 8:19 AM EDT) Ferritin 13 8 - 252 ng/mL LAB CHEMISTRY METHOD 11/23/2024 11:02 AM EDT [facility] Blood Venous blood specimen / Unknown Venipuncture / Unknown 11/23/2024 8:19 AM EDT 11/23/2024 8:19 AM EDT us Christina Yu MD LAB BLOOD ORDERABLES Final R esult Performing Organization Address City/[facility]/ZIP Co de Phone Number [facility] [address] [place] [address], [place] [phone] * Vitamin B12 (11/23/2024 8:19 AM EDT) [facility] Vitamin B-12 368 250 - 900 pcg/mL LAB CHEMISTRY METHOD 11/23/2024 11:02 AM EDT [facility] Blood Venous blood specimen / Unknown Venipuncture / Unknown 11/23/2024 8:19 AM EDT 11/23/2024 8:19 AM EDT us Christina Yu MD LAB BLOOD ORDERABLES Final R esult Performing Organization Address [facility]/ZIP Co de Phone Number [facility] [address] [place] [address], [place] [phone] * Cortisol (11/23/2024 8:19 AM EDT) [facility] Cortisol 8.0 mcg/dL LAB CHEMISTRY METHOD 11/23/2024 11:38 AM EDT [facility] Blood Venous blood specimen / Unknown Venipuncture / Unknown 11/23/2024 8:19 AM EDT 11/23/2024 8:19 AM EDT Narrative [facility] - 11/23/2024 11:38 AM EDT CORTISOL REFERENCE RANGE 8 AM SPEC: 5.0-23.0 mcg/dL 4 PM SPEC: 3.0-16.0 mcg/dL 8 PM SPEC: <5.0 mcg/dL us Christina Yu MD LAB BLOOD ORDERABLES Final R esult [facility] [address] [place] [address], [place] [phone] * (ABNORMAL) Comprehensive metabolic panel (11/23/2024 8:19 AM EDT) [facility] Sodium 137 133 - 145 mmol/L LAB CHEMISTRY METHOD 11/23/2024 11:02 AM [facility] Potassium 4.2 3.5 - 5.5 mmol/L LAB CHEMISTRY METHOD 11/23/2024 11:02 AM [facility] Chloride 110 96 - 110 mmol/L LAB CHEMISTRY METHOD 11/23/2024 11:02 AM [facility] CO2 20(L) 21 - 32 mmol/L LAB CHEMISTRY METHOD 11/23/2024 11:02 AM [facility] Anion Gap 7 3 - 11 LAB CHEMISTRY METHOD 11/23/2024 11:02 AM [facility] Glucose 92 70 - 100 mg/dL LAB CHEMISTRY METHOD 11/23/2024 11:02 AM [facility] BUN 16 5 - 25 mg/dL LAB CHEMISTRY METHOD 11/23/2024 11:02 AM [facility] Creatinine 0.95 0.50 - 1.10 mg/dL LAB CHEMISTRY METHOD 11/23/2024 11:02 AM [facility] eGFR 78 >=60 mL/min/1. 73m2 LAB CHEMISTRY METHOD 11/23/2024 11:02 AM [facility] Comment:Calculation based on the Chronic Kidney Disease Epidemiology Collaboration (CKD-EPI) equation refit without adjustment for race. BUN/Creatinine Ratio 16.8 LAB CHEMISTRY METHOD 11/23/2024 11:02 AM [facility] Calcium 9.0 8.5 - 10.5 mg/dL LAB CHEMISTRY METHOD 11/23/2024 11:02 AM [facility] AST (SGOT) 47(H) 10 - 42 unit/L LAB CHEMISTRY METHOD 11/23/2024 11:02 AM [facility] ALT (SGPT) 74(H) 10 - 60 unit/L LAB CHEMISTRY METHOD 11/23/2024 11:02 AM [facility] Alkaline Phosphatase 104 42 - 121 unit/L LAB CHEMISTRY METHOD 11/23/2024 11:02 AM EDT [facility] Total Protein 7.8 6.0 - 8.0 g/dL LAB CHEMISTRY METHOD 11/23/2024 11:02 AM EDT [facility] Albumin 3.2 3.2 - 5.0 g/dL LAB CHEMISTRY METHOD 11/23/2024 11:02 AM EDT [facility] Total Bilirubin 0.4 0.0 - 1.4 mg/dL LAB CHEMISTRY METHOD 11/23/2024 11:02 AM EDT [facility] Blood Venous blood specimen / Unknown Venipuncture / Unknown 11/23/2024 8:19 AM EDT 11/23/2024 8:19 AM EDT us Christina Yu MD LAB BLOOD ORDERABLES Final R esult [facility]) [facility] [address] [place] [address], [place] [phone] from Last 3 Months Insurance [facility] [employer] Care Teams 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
== END 2025-02-01 11:19 | disposition home or self-care (01) ==
LOC: HO.HMCH 10:49
PROVIDERS: PCP Internal Medicine; Visit Provider Nurse Practitioner Family
DX: R45.851 Suicidal ideations (principal)

== ENCOUNTER → 2025-02-01 10:48 | Outpatient (BNVA) | payer OTHER, SELFPAY | PROVIDERS: PCP Internal Medicine; Visit Provider Nurse Practitioner Family | DX: R45.851 Suicidal ideations (principal); F31.9 Bipolar disorder, unspecified; F41.9 Anxiety disorder, unspecified | CPT/HCPCS: 99212 ==

== ENCOUNTER 2025-02-18 13:50 | Outpatient (AMB) | payer OTHER, SELFPAY ==
[2025-02-18 14:48] VITALS: BP 126/84; PULSE 91; O2SAT 98; BMI 59.4
--- NOTE | 2025-02-18 14:48 | A.OFFPC_ITS ---
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 Required: No Accompanied by: Self / Same As Patient Allergies morphine (MORPHINE) Allergy (Intermediate, Verified 02/25/25 04:42) WBC ELEVATED/ N/V shellfish derived (SHELLFISH DERIVED) Allergy (Intermediate, Verified 02/25/25 04:42) HIVES iodine (IODINE) Allergy (Mild, Verified 02/25/25 04:42) RASH duloxetine Adverse Reaction (Intermediate, Verified 02/25/25 04:42) vomiting Medication List - Last Reconciled 02/25/25 by Lavon Richardson MD acetazolamide 250 mg PO BID bupropion HCl XL 300 mg PO QAM 30 days cholecalciferol (vitamin D3) (Vitamin D3) 25 mcg PO DAILY clonazepam (Klonopin) 1 mg PO DAILY PRN 30 days fluoxetine 20 mg PO DAILY 30 days fluticasone propion-salmeterol 500-50 mcg/dose (Advair Diskus) 1 inh inhalation BID 30 days gabapentin 800 mg PO QID 30 days hydrocortisone 2.5% 1 appl topical BID PRN hydroxyzine HCl 50 mg PO TID PRN 30 days ipratropium-albuterol 0.5 mg-3 mg(2.5 mg base)/3 mL 3 mL inhalation Q4-6H PRN 30 days iron,carbonyl-vitamin C 65 mg iron- 125 mg (Vitron-C) 1 tab PO DAILY levothyroxine 150 mcg PO DAILY methocarbamol 500 mg PO TID PRN [NEBULIZER Use as directed as needed] omeprazole 40 mg PO DAILY 90 days topiramate 100 mg (2 x 50 mg) PO BEDTIME 30 days MDD 100mg Ventolin HFA 90 mcg/actuation (albuterol sulfate) 2 puffs inhalation Q4-6H PRN NS Tobacco use date assessed: 02/18/25 Dental Screening Dental Screen Date: 02/18/25 Did you have a dental visit in the last 12 months?: Yes Did you have a dental problem in the last 6 months where you did not have access to dental care?: No Was dental information given to patient?: Patient has dentist HPI 4 month f/u ryan from 10/30 HPI Details Patient comes in today for her follow up visit States that she has lost about 20 pounds since I last saw her at the beginning of the year States that she is still experiencing recurrent diffuse pain although these do not seem to be as bad as they were earlier this year She denies any headaches or dizziness Denies any chest pains, no increased shortness of breath No nausea/vomiting, no abdominal pain No change in bowel habits noted She has no follow-up labs done recently - states that she has not yet eaten anything today in can go to the lab to get these done immediately after her visit today [facility] Medical History (Updated 02/18/25 @ 15:32 by Lavon Richardson MD) Gross hematuria ELIZABETH III (cervical intraepithelial neoplasia grade III) with severe dysplasia Anxiety Chronic migraine without aura Cognitive disorder Multiple environmental allergies Morbid obesity with BMI of 60.0-69.9, adult MISAEL (obstructive sleep apnea) GERD (gastroesophageal reflux disease) Anemia Morbid obesity Hypersomnia Loud snoring Blurry vision, bilateral Chronic migraine without aura PTSD (post-traumatic stress disorder) Bipolar depression Depression Morbid obesity with BMI of 45.0-49.9, adult Migraine Bilateral foot pain Fibromyalgia History of thyroid cancer Smoker Papillary thyroid carcinoma Post-surgical hypothyroidism Bilateral lower extremity edema Elevated LFTs Anxiety Asthma Hypothyroidism Cervical lymphadenopathy Vitamin D deficiency Thyroid cancer Surgical History History of esophagogastroduodenoscopy (EGD) Hx of tubal ligation History of surgery Hx of lymph node biopsy Hx of total thyroidectomy (~05/2020) Hx of section Hx of cholecystectomy Family History Father Diabetes Asthma Hypertension Mother Diabetes Hypertension Multiple sclerosis Daughter No problems noted. Daughter No problems noted. Daughter No problems noted. Daughter Deaf Asthma Daughter Deaf Son No problems noted. Son Asthma Son No problems noted. 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 Current occupational exposures/hazards: No Cognitive needs: No Hearing needs: No Vision needs: Yes Female Reproductive History Menstrual Age of Menarche: 12 Questionnaire Thrive Questionnaire Date Thrive assessed: 02/01/25 I am a: Patient What is your living situation today?: I have a steady place to live Within the past 12 months, did the food you bought not last and you didn't have the money to get more?: Often true Within the past 12 months, did you worry whether your food would run out before you got money to buy more?: Never true Do you have trouble paying for medicines?: No Do you have trouble getting transportation to medical appointments?: No Do you have trouble paying your heating and electricity bill?: No Do you have trouble taking care of your child, family member or friend?: No Do you have trouble with day-to-day activities such as bathing, preparing meals, shopping, managing finances, etc.?: Yes Are you currently unemployed and looking for a job?: Yes Are you interested in more education?: I choose not to answer this question Please select the resources that you would like help with: None Currently or been in a relationship where the following occur: I choose not to answer THRIVE Score: 1 AUDIT C Alcohol Use Questionnaire (AUDIT-C) 1. How often do you have a drink containing alcohol?: Monthly or less 2. How many drinks containing alcohol do you have on a typical day when you are drinking?: 1 or 2 3. How often do you have six or more drinks on one occasion?: Never Total Score: 1 Score Reviewed/Action Taken: Yes RUSSELL-7 AMB Questionnaire RUSSELL-7 Date RUSSELL - 7 assessed: 02/01/25 Source: Developed by Drs. Alexander Avila, Shirlene Travis, Valdemar Cruz and colleagues, with an educational dilma from [employer]. Review of Systems Const Denies chills, Reports fatigue, Denies fever(s) and Denies headache(s) ENT Denies dysphagia, Denies dizziness, Denies otalgia, Denies headache(s), Denies neck pain, Denies odynophagia and Denies sore throat Card Denies chest pain, Denies irregular heart rhythm, Denies palpitations and Reports dyspnea on exertion (mild) Resp Denies chest congestion, Denies cough and Reports dyspnea on exertion (mild) GI Denies abdominal pain, Denies constipation, Denies dysphagia, Denies heartburn, Denies diarrhea, Denies nausea, Denies odynophagia and Denies vomiting Denies urinary frequency, Denies dysuria and Denies urinary urgency Musc Reports back pain (on and off), Reports myalgias (diffuse), Denies arthralgias and Denies neck pain Skin/Breast Denies rash Neuro Denies dizziness, Denies headache(s) and Denies paresthesias Psych Reports anxiety and Denies depression Endo Reports fatigue and Denies palpitations Parish/Lymph Denies easy bruising Physical exam (Primary Care) Vital Signs: Last Vital Signs Pulse 91 02/18/25 14:48 BP 126/84 02/18/25 14:48 Pulse Ox 98 02/18/25 14:48 Oxygen Delivery Method Room Air 02/18/25 14:48 BMI result Body Mass Index 59.4 Tobacco/Smoking Status: Tobacco use Status Tobacco use date assessed 02/18/25 02/18/25 14:54 Patient Tobacco Use Status Former Tobacco user 02/18/25 14:54 Tobacco use type Cigarette 02/18/25 14:54 e-Cigarette/Vaping Use Former Use 02/18/25 14:54 Thrive Assessment: Date of Thrive Assessment Date Thrive assessed 02/01/25 02/18/25 14:54 Currently or been in a relationship where the following occur: I choose not to answer Const General: no acute distress and alert HENMT Ears: TM's normal bilaterally and EAC's normal Throat: Yes posterior oropharynx normal and Yes tonsils normal (no TP congestion) Neck Neck: Yes supple and No lymphadenopathy Thyroid: Thyroid normal Resp Auscultation: clear to auscultation bilaterally, no rales and no wheezes Cardio Rate: regular rate Rhythm: regular rhythm Heart sounds: no murmurs GI Palpation (GI): Soft to palpation and nontender Auscultation: normal bowel sounds General: Yes no CVA tenderness Back/Spine/Pelvis Back: no CVA tenderness Thoracic/Lumbar Spine: lumbar spinal tenderness Skin Rashes: no rashes Extrem General: Yes no clubbing, cyanosis or edema Coding Level of Care Code Est Pt Level 4 (43204) Diagnoses Severe persistent asthma without complication J45.50 Asthma severity: severe Asthma persistence: persistent Asthma complication type: uncomplicated Multiple environmental allergies Z91.09 MISAEL (obstructive sleep apnea) G47.33 Fibromyalgia M79.7 Migraine without status migrainosus, not intractable, unspecified migraine type G43.909 Migraine type: unspecified Status migrainosus presence: without status migrainosus Intractability: not intractable Elevated LFTs R79.89 Gastroesophageal reflux disease without esophagitis K21.9 Esophagitis presence: without esophagitis Post-surgical hypothyroidism E89.0 Papillary thyroid carcinoma C73 Vitamin D deficiency E55.9 Mild anemia D64.9 Anxiety F41.9 Bipolar depression F31.9 Morbid obesity with BMI of 60.0-69.9, adult E66.01; Z68.44 Assessment & Plan Assessment & Plan (1) Asthma: Code(s): J45.909 - Unspecified asthma, uncomplicated Category: Medical Qualifiers: Asthma severity: severe Asthma persistence: persistent Asthma complication type: uncomplicated Qualified Code(s): J45.50 - Severe persistent asthma, uncomplicated Plan: Currently controlled Continue Advair Diskus 500-50 mcg 1 inhalation BID and Albuterol HFA 2 inhalati ons every 6 hours as needed; she uses Duoneb with her nebulizer QID PRN when needed in place of her Albuterol inhaler when her asthma acts up or flares up She has also been started on Xolair injections, which she states has helped a lot with her asthma Follow up with [facility] Pulmonary (Dr. Cm) as scheduled (2) Multiple environmental allergies: Code(s): Z91.09 - Other allergy status, other than to drugs and biological substances Category: Medical Plan: She had allergy testing done a few months ago, which came out positive for allergies to dogs, cats, mouse and cockroaches, among others Continue Hydroxyzine 50 mg TID PRN and Xolair injections 300 mg SQ Q 2 weeks (3) MISAEL (obstructive sleep apnea): Code(s): G47.33 - Obstructive sleep apnea (adult) (pediatric) Category: Medical Plan: Patient continues to use her CPAP device at 12 cm of water regularly when sleeping every night and she feels that CPAP therapy has helped her a lot Follow up with Sleep Medicine as scheduled (4) Fibromyalgia: Code(s): M79.7 - Fibromyalgia Category: Medical Plan: Continue Gabapentin 800 mg TID and Tizanidine 4 mg TID PRN We tried switching her Gabapentin over to Pregabalin last year but this was denied by insurance She was also seen by rheumatology last year and was advised to just continue on her current Rx and to follow up with them on an as needed basis as they reportedly do not treat fibromyalgia any much differently than primary care (5) Migraine: Code(s): G43.909 - Migraine, unspecified, not intractable, without status migrainosus Category: Medical Qualifiers: Migraine type: unspecified Status migrainosus presence: without status migrainosus Intractability: not intractable Qualified Code(s): G43.909 - Migraine, unspecified, not intractable, without status migrainosus Plan: Stable/controlled on prophylactic Tx with Topiramate 50 mg BID Reinforced avoidance of all potential migraine triggers Continue Fioricet 50-325-40 mg PRN Follow up with neurology as scheduled (6) Elevated LFTs: Code(s): R79.89 - Other specified abnormal findings of blood chemistry Category: Medical Plan: Have again advised patient that her LFTs remain elevated on her labs done earlier this year, and that these are likely related to her weight Her liver fibrosis score was at 0.04 and liver fibrosis stage was at F0 when this was checked earlier this June 2024 Will continue to monitor her LFTs regularly (7) GERD (gastroesophageal reflux disease): Code(s): K21.9 - Gastro-esophageal reflux disease without esophagitis Category: Medical Qualifiers: Esophagitis presence: without esophagitis Qualified Code(s): K21.9 - Gastro-esophageal reflux disease without esophagitis Plan: Dietary restrictions reinforced Upper GI series done a couple of years ago revealed (+) large gastroesophageal reflux into the pharynx; no hiatal hernia was seen Continue Omeprazole 40 mg QD Follow up with GI as scheduled (8) Post-surgical hypothyroidism: Code(s): E89.0 - Postprocedural hypothyroidism Category: Medical Plan: Her TFTs were within normal range on her labs done earlier this year Continue Levothyroxine 175 mcg QD Will have patient recheck her TFTs YOLANDA for follow up Follow up with endocrinology as scheduled (9) Papillary thyroid carcinoma: Comment: S/P total thyroidectomy by Dr. Cosme in May 2020 Code(s): C73 - Malignant neoplasm of thyroid gland Category: Medical Plan: Head and neck US done a few months ago revealed status post thyroidectomy without residual thyroid tissue and morphologically normal bilateral cervical lymph nodes Follow up with endocrinology as scheduled for continuing surveillance (10) Vitamin D deficiency: Code(s): E55.9 - Vitamin D deficiency, unspecified Category: Medical Plan: Continue Vitamin D3 1000 units QD (11) Mild anemia: Code(s): D64.9 - Anemia, unspecified Category: Medical Plan: Her H/H was at 11.0/34.7 on her labs done back in June 2024 Will continue to monitor her CBC regularly (12) Anxiety: Code(s): F41.9 - Anxiety disorder, unspecified Category: Medical Plan: Continue Clonazepam 1 mg QD PRN and Hydroxyzine 50 mg TID PRN Continue Fluoxetine 20 mg QD and Bupropion XL 300 mg Q AM (13) Bipolar depression: Code(s): F31.9 - Bipolar disorder, unspecified Category: Medical Plan: Continue Bupropion XL 300 mg Q AM, Fluoxetine 20 mg QD and Aripiprazole 10 mg QD She is on Topiramate 25 mg Q HS for her migraine - is advised that this can also help as a mood stabilizer Follow up with psychiatry as scheduled (14) Morbid obesity with BMI of 60.0-69.9, adult: Code(s): E66.01 - Morbid (severe) obesity due to excess calories; Z68.44 - Body mass i ndex [BMI] 60.0-69.9, adult Category: Medical Plan: Reinforced diet/ exercise and weight loss are pretty much unrealistic at this time due to her recent complaints of debilitating muscle cramps that are triggered even by routine daily activities She was following up with weight management here at [facility] last year but was discharged after she cancelled her bariatric surgery - was supposedly advised that if she does not want to undergo gastric bypass surgery, then they have nothing else to offer her Patient claims that she was advised by endocrinology to speak to us about starting her on a GLP-1 to help her lose weight and was reportedly advised that her Hx of papillary thyroid cancer is not a contraindication for use of these Rx Upon review of her most recent endocrinology visit note, have advised patient that per endocrinology, she would be a good candidate for weight loss med ications such as GLP 1 agonists, and they will discuss this further with her when they see her for next follow up visit. She has been advised to discuss with her primary care physician about a referral to another weight management program in the state as she was discharged from the program here at [facility] Have explained to patient that due to her complex thyroid history, I would prefer to leave it up to Dr. Cifuentes to prescribe and manage her GLP-1 Rx if she were to be started on it to help her lose weight I will go ahead and try to refer her to the MEDICAL weight management program at [facility] to help her manage her obesity and weight loss Plan To return as scheduled next week for her annual physical examination Orders: Orders Comprehensive [place]. Panel Fast 02/18/25 E78.00 - Pure hypercholesterolemia, unspecified Lipid Panel 02/18/25 E78.00 - Pure hypercholesterolemia, unspecified UA CC w/rflx Micro + Cult 02/18/25 R30.0 - Dysuria Complete Blood Count Auto Diff 02/18/25 D64.9 - Anemia, unspecified Vitamin B12 and Folate 02/18/25 E53.8 - Deficiency of other specified B group vitamins Vitamin D 25-OH Total 02/18/25 E55.9 - Vitamin D deficiency, unspecified Hemoglobin A1c 02/18/25 R73.9 - Hyperglycemia, unspecified Liver Fibrosis Pnl 02/18/25 R79.89 - Other specified abnormal findings of blood chemistry
--- OUTSIDE RECORDS SUMMARY | 2025-02-18 19:10 | XMS_ITS | Clinical Summary ---
Author Organization [facility] Address [address] [place] [address] Phone Care Team Providers Care Property Master Name Role Phone Lavon Richardson MD Primary Care Provider [phone] Allergies Active Allergy Reactions Criticality Noted Date [...] Problems Problem Noted Date Diagnosed Date Schizophrenia ([facility], [facility] V28) 025 Class 3 severe obesity with serious comorbidity and body mass index (BMI) of 60.0 to 69.9 in adult ([facility] V24, [facility] V28) 09/28/2024 PTSD (post-traumatic stress disorder) 09/28/2024 Hepatitis C 09/28/2024 Depression 09/28/2024 Asthma 09/28/2024 Overview (09/28/2024): Poorly controlled. Anxiety 09/28/2024 Grand multiparity with problem 025 Class 3 severe obesity witho ut serious comorbidity with body mass index (BMI) of 50.0 to 59.9 in adult ([facility] V24, [facility] V28) 09/11/2024 Encounters Date Type Department Care Team Description 11/28/2024 Telephone Bariatric Surgery [address] [phone] 11/27/2024 Telephone Bariatric Surgery [address] [phone] 11/26/2024 Telephone Bariatric Surgery [address] [address] 11/22/2024 1:30 PM EDT Telemedicine Bariatric Surgery [address] [phone] Class 3 severe obesity with serious comorbidity and body mass index (BMI) of 60.0 to 69.9 in adult, unspecified obesity type ([facility] V24, [facility] V28) (Primary Dx) 11/20/2024 8:45 AM EDT Office Visit Bariatric Surgery - [address] [place] [address] Christina Yu MD Class 3 severe obesity due to excess calories with body mass index (BMI) of 60.0 to 69.9 in adult, unspecified whether serious comorbidity present ([facility] V24, [facility] V28) (Primary Dx) from Last 3 Months Surgical History Surgery Date Site/Laterality Comments THYROIDECTOMY CHOLECYSTECTOMY SECTION Medical History Medical History Date Comments Multiple sclerosis ([facility] V24, [facility] V28) Thyroid cancer ([facility] V24, [facility] V28) Lymphoma ([facility] V24, [facility] V28) Social History Tobacco Use Types Packs/Day [...] to 69.9 in adult, unspecified obesity type ([facility] V24, [facility] V28) VITAMIN D 25 HYDROXY Routine 11/23/2024 8:19 AM EDT Class 3 severe obesity with serious comorbidity and body mass index (BMI) of 60.0 to 69.9 in adult, unspecified obesity type ([facility] V24, [facility] V28) from Last 3 Months Results * Bilirubin duplicate procedure to order (11/23/2024 8:19 AM EDT) Total Bilirubin 0.4 0.0 - 1.4 mg/dL LAB CHEMISTRY METHOD 11/23/2024 11:02 AM EDT [facility] Bilirubin, Direct 0.1 0.0 - 0.3 mg/dL LAB CHEMISTRY METHOD 11/23/2024 11:02 AM EDT [facility] Bilirubin, Indirect 0.3 0.0 - 1.1 mg/dL LAB CHEMISTRY METHOD 11/23/2024 11:02 AM EDT [facility] Blood Venous blood specimen / Unknown Venipuncture / Unknown 11/23/2024 8:19 AM EDT 11/23/2024 8:19 AM EDT us Christina Yu MD LAB BLOOD ORDERABLES Final R esult [facility] [address] [place] [address], * Lipid panel with reflex to direct LDL (11/23/2024 8:19 AM EDT) Cholesterol 140 0 - 200 mg/dL LAB CHEMISTRY METHOD 11/23/2024 11:02 AM EDT [facility] Triglycerides 84 0 - 150 mg/dL LAB CHEMISTRY METHOD 11/23/2024 11:02 AM EDT [facility] HDL 45 >=40 mg/dL LAB CHEMISTRY METHOD 11/23/2024 11:02 AM EDT [facility] LDL Calculated 78 0 - 100 mg/dL LAB CHEMISTRY METHOD 11/23/2024 11:02 AM EDT [facility] VLDL Cholesterol Corky 16.8 mg/dL LAB CHEMISTRY METHOD 11/23/2024 11:02 AM EDT [facility] Non HDL Chol. (LDL+VLDL) 95 <145 mg/dL LAB CHEMISTRY METHOD 11/23/2024 11:02 AM EDT [facility] Chol/HDL Ratio 3.1 0.0 - 4.4 LAB CHEMISTRY METHOD 11/23/2024 11:02 AM EDT [facility] Blood Venous blood specimen / Unknown Venipuncture / Unknown 11/23/2024 8:19 AM EDT 11/23/2024 8:19 AM EDT us Christina Yu MD LAB BLOOD ORDERABLES Final R esult [facility] [address] [place] [address], * Nicotine and cotinine (11/23/2024 8:19 AM [...] <2 ng/mL Reference Ranges from: Clin. Chem.; [id number] (2002) Direct any interpretive questions to the toxicology laboratory. This is for medical use only, it is not intended for forensic use. If applicable, any drug confirmation testing reported here was developed and the performance characteristics determined by [facility]. This confirmation testing has not been cleared or approved by the FDA. The laboratory is regulated under CLIA as qualified to perform high-complexity testing. This test is used for patient testing purposes. It should not be regarded as investigational or for research. Test performed at [facility], [address] , [place], [place] [id number] Heaven Adler MD, PhD - Oral Therapist Blood Venous blood specimen / Unknown Venipuncture / Unknown 11/23/2024 8:19 AM EDT 11/23/2024 8:19 AM EDT us Christina Yu MD LAB BLOOD ORDERABLES Final R esult [facility] [address] [place] [address] * (ABNORMAL) CBC auto differential (11/23/2024 8:19 AM EDT) WBC 12.2(H) 4.8 - 10.8 K/mcL LAB HEMETOLOGY METHOD 11/23/2024 10:27 AM EDT [facility] RBC 4.40 3.80 - 4.80 M/mcL LAB HEMETOLOGY METHOD 11/23/2024 10:27 AM EDT [facility] Hemoglobin 11.5 11.5 - 16.0 g/dL LAB HEMETOLOGY METHOD 11/23/2024 10:27 AM EDT [facility] Hematocrit 37.2 35.0 - 47.0 % LAB HEMETOLOGY METHOD 11/23/2024 10:27 AM [facility] MCV 84.9 79.0 - 98.0 FL LAB HEMETOLOGY METHOD 11/23/2024 10:27 AM [facility] MCH 26.3(L) 27.0 - 32.0 pcg LAB HEMETOLOGY METHOD 11/23/2024 10:27 AM [facility] MCHC 30.9(L) 32.0 - 37.0 g/dL LAB HEMETOLOGY METHOD 11/23/2024 10:27 AM [facility] RDW 17.2(H) 11.0 - 15.0 % LAB HEMETOLOGY METHOD 11/23/2024 10:27 AM [facility] Platelets 420(H) 130 - 400 K/mcL LAB HEMETOLOGY METHOD 11/23/2024 10:27 AM [facility] MPV 8.9 7.0 - 11.0 FL LAB HEMETOLOGY METHOD 11/23/2024 10:27 AM [facility] NRBC 0.0 <1.0 % LAB HEMETOLOGY METHOD 11/23/2024 10:27 AM [facility] NRBC Absolute 0.00 <0.10 K/mcL LAB HEMETOLOGY METHOD 11/23/2024 10:27 AM [facility] Neutrophils Relative 59.9 % LAB HEMETOLOGY METHOD 11/23/2024 10:27 AM [facility] Lymphocytes Relative 28.5 % LAB HEMETOLOGY METHOD 11/23/2024 10:27 AM [facility] Monocytes Relative 6.6 % LAB HEMETOLOGY METHOD 11/23/2024 10:27 AM [facility] Eosinophils Relative 3.9 % LAB HEMETOLOGY METHOD 11/23/2024 10:27 AM [facility] Basophils Relative 0.5 % LAB HEMETOLOGY METHOD 11/23/2024 10:27 AM EDT [facility] Immature Granulocytes Relative 0.6 % LAB HEMETOLOGY METHOD 11/23/2024 10:27 AM EDT [facility] Neutrophils Absolute 7.32(H) 1.50 - 7.00 K/mcL LAB HEMETOLOGY METHOD 11/23/2024 10:27 AM EDT [facility] Lymphocytes Absolute 3.48 1.00 - 5.00 K/mcL LAB HEMETOLOGY METHOD 11/23/2024 10:27 AM EDT [facility] Monocytes Absolute 0.80 0.20 - 1.00 K/mcL LAB HEMETOLOGY METHOD 11/23/2024 10:27 AM EDT [facility] Eosinophils Absolute 0.47 0.00 - 0.50 K/mcL LAB HEMETOLOGY METHOD 11/23/2024 10:27 AM EDT [facility] Basophils Absolute 0.06 0.00 - 0.20 K/mcL LAB HEMETOLOGY METHOD 11/23/2024 10:27 AM EDT [facility] Immature Granulocytes Absolute 0.07(H) 0.00 - 0.03 K/mcL LAB HEMETOLOGY METHOD 11/23/2024 10:27 AM EDT [facility] Blood Venous blood specimen / Unknown Venipuncture / Unknown 11/23/2024 8:19 AM EDT 11/23/2024 8:19 AM EDT us Christina Yu MD LAB BLOOD ORDERABLES Final R esult [facility] [address] [place] [address], * (ABNORMAL) Iron and TIBC (11/23/2024 8:19 AM EDT) [facility] Signature Iron 38(L) 40 - 150 mcg/dL LAB CHEMISTRY METHOD 11/23/2024 11:02 AM EDT [facility] TIBC 436 250 - 450 mcg/dL LAB CHEMISTRY METHOD 11/23/2024 11:02 AM EDT [facility] Iron Saturation 9(L) 15 - 50 % LAB CHEMISTRY METHOD 11/23/2024 11:02 AM EDT [facility] Blood Venous blood specimen / Unknown Venipuncture / Unknown 11/23/2024 8:19 AM EDT 11/23/2024 8:19 AM EDT us Christina Yu MD LAB BLOOD ORDERABLES Final R esult Performing Organization Address City/[facility]/ZIP Co de Phone Number [facility] [address] [place] [address], [place] [phone] * Helicobacter pylori breath test (11/23/2024 8:19 AM EDT) H Pylori Breath Test Negative Negative LAB CHEMISTRY METHOD 11/23/2024 10:47 AM EDT [facility] Breath Oral cavity structure / Unknown Non-blood Collection / Unknown 11/23/2024 8:19 AM EDT 11/23/2024 8:19 AM EDT us Christina Yu MD LAB BODY FLUIDS AND STOOLS O RDERABLES Final Result [facility] [address] [place] [address], [place] [phone] * Vitamin D 25 hydroxy (11/23/2024 8:19 AM EDT) Vit D, 25-Hydroxy 39.4 30.0 - 80.0 ng/mL LAB CHEMISTRY METHOD 11/23/2024 11:38 AM EDT [facility] Blood Venous blood specimen / Unknown Venipuncture / Unknown 11/23/2024 8:19 AM EDT 11/23/2024 8:19 AM EDT us Christina Yu MD LAB BLOOD ORDERABLES Final R esult Performing Organization Address [facility]/ZIP Co de Phone Number [facility] [address] [place] [address], [place] [phone] * Thyroid stimulating hormone (11/23/2024 8:19 AM EDT) [facility] TSH 0.69 0.40 - 4.00 mcIU/mL LAB CHEMISTRY METHOD 11/23/2024 11:38 AM EDT [facility] Blood Venous blood specimen / Unknown Venipuncture / Unknown 11/23/2024 8:19 AM EDT 11/23/2024 8:19 AM EDT us Christina Yu MD LAB BLOOD ORDERABLES Final R esult Performing Organization Address [facility] Co de Phone Number [facility] [address] [place] [address], [place] [phone] * Vitamin B1 (11/23/2024 8:19 AM EDT) [facility] Vitamin B1 Whole Blood 68 38 - 122 ug/L 11/28/2024 6:40 AM EDT [facility] Comment: This test was developed and the performance characteristics determined by [facility]. It has not been cleared or approved by the FDA. The laboratory is regulated under CLIA as qualified to perform high-complexity testing. This test is used for patient testing purposes. It should not be regarded as investigational or for research. Test performed at [facility], [address] , [place] [address] Heaven Adler MD, PhD - Oral Therapist Blood Venous blood specimen / Unknown Venipuncture / Unknown 11/23/2024 8:19 AM EDT 11/23/2024 8:19 AM EDT us Christina Yu MD LAB BLOOD ORDERABLES Final R esult [address] [place] [address] * Parathyroid hormone intact (11/23/2024 8:19 AM EDT) PTH 60.2 18.5 - 88.0 pcg/mL LAB CHEMISTRY METHOD 11/23/2024 12:03 PM EDT [facility] Blood Venous blood specimen / Unknown Venipuncture / Unknown 11/23/2024 8:19 AM EDT 11/23/2024 8:19 AM EDT us Christina Yu MD LAB BLOOD ORDERABLES Final R esult Performing Organization Address City/[facility]/ZIP Co de Phone Number [facility] [address] [place] [address], [place] [phone] * Magnesium (11/23/2024 8:19 AM EDT) Magnesium 2.1 1.9 - 2.6 mg/dL LAB CHEMISTRY METHOD 11/23/2024 10:37 AM EDT [facility] Blood Venous blood specimen / Unknown Venipuncture / Unknown 11/23/2024 8:19 AM EDT 11/23/2024 8:19 AM EDT us Christina Yu MD LAB BLOOD ORDERABLES Final R esult [facility] [address] [place] [address], [place] [phone] * Hemoglobin A1c (11/23/2024 8:19 AM EDT) Hemoglobin A1C 5.9 <6.5 % LAB CHEMISTRY METHOD 11/23/2024 12:36 PM EDT [facility] Mean Bld Glu Estim. 123 mg/dL LAB CHEMISTRY METHOD 11/23/2024 12:36 PM EDT [facility] Blood Venous blood specimen / Unknown Venipuncture / Unknown 11/23/2024 8:19 AM EDT 11/23/2024 8:19 AM EDT us Christina Yu MD LAB BLOOD ORDERABLES Final R esult Performing Organization Address City/[facility] Co de Phone Number [facility] [address] [place] [address], [place] [phone] * Folate (11/23/2024 8:19 AM EDT) Pathologist [facility] Folate 9.7 2.8 - 17.0 ng/ml LAB CHEMISTRY METHOD 11/23/2024 11:02 AM EDT [facility] Blood Venous blood specimen / Unknown Venipuncture / Unknown 11/23/2024 8:19 AM EDT 11/23/2024 8:19 AM EDT us Christina Yu MD LAB BLOOD ORDERABLES Final R esult Performing Organization Address [facility] Co de Phone Number [facility] [address] [place] [address], [place] [phone] * Ferritin (11/23/2024 8:19 AM EDT) Ferritin 13 8 - 252 ng/mL LAB CHEMISTRY METHOD 11/23/2024 11:02 AM EDT [facility] Blood Venous blood specimen / Unknown Venipuncture / Unknown 11/23/2024 8:19 AM EDT 11/23/2024 8:19 AM EDT us Christina Yu MD LAB BLOOD ORDERABLES Final R esult Performing Organization Address City/[facility]/ZIP Co de Phone Number [facility] [address] [place] [address], [place] [phone] * Vitamin B12 (11/23/2024 8:19 AM EDT) [facility] Vitamin B-12 368 250 - 900 pcg/mL LAB CHEMISTRY METHOD 11/23/2024 11:02 AM EDT [facility] Blood Venous blood specimen / Unknown Venipuncture / Unknown 11/23/2024 8:19 AM EDT 11/23/2024 8:19 AM EDT us Christina Yu MD LAB BLOOD ORDERABLES Final R esult Performing Organization Address [facility]/ZIP Co de Phone Number [facility] [address] [place] [address], [place] [phone] * Cortisol (11/23/2024 8:19 AM EDT) [facility] Cortisol 8.0 mcg/dL LAB CHEMISTRY METHOD 11/23/2024 11:38 AM EDT [facility] Blood Venous blood specimen / Unknown Venipuncture / Unknown 11/23/2024 8:19 AM EDT 11/23/2024 8:19 AM EDT Narrative [facility] - 11/23/2024 11:38 AM EDT CORTISOL REFERENCE RANGE 8 AM SPEC: 5.0-23.0 mcg/dL 4 PM SPEC: 3.0-16.0 mcg/dL 8 PM SPEC: <5.0 mcg/dL us Christina Yu MD LAB BLOOD ORDERABLES Final R esult [facility] [address] [place] [address], [place] [phone] * (ABNORMAL) Comprehensive metabolic panel (11/23/2024 8:19 AM EDT) [facility] Sodium 137 133 - 145 mmol/L LAB CHEMISTRY METHOD 11/23/2024 11:02 AM [facility] Potassium 4.2 3.5 - 5.5 mmol/L LAB CHEMISTRY METHOD 11/23/2024 11:02 AM [facility] Chloride 110 96 - 110 mmol/L LAB CHEMISTRY METHOD 11/23/2024 11:02 AM [facility] CO2 20(L) 21 - 32 mmol/L LAB CHEMISTRY METHOD 11/23/2024 11:02 AM [facility] Anion Gap 7 3 - 11 LAB CHEMISTRY METHOD 11/23/2024 11:02 AM [facility] Glucose 92 70 - 100 mg/dL LAB CHEMISTRY METHOD 11/23/2024 11:02 AM [facility] BUN 16 5 - 25 mg/dL LAB CHEMISTRY METHOD 11/23/2024 11:02 AM [facility] Creatinine 0.95 0.50 - 1.10 mg/dL LAB CHEMISTRY METHOD 11/23/2024 11:02 AM [facility] eGFR 78 >=60 mL/min/1. 73m2 LAB CHEMISTRY METHOD 11/23/2024 11:02 AM [facility] Comment:Calculation based on the Chronic Kidney Disease Epidemiology Collaboration (CKD-EPI) equation refit without adjustment for race. BUN/Creatinine Ratio 16.8 LAB CHEMISTRY METHOD 11/23/2024 11:02 AM [facility] Calcium 9.0 8.5 - 10.5 mg/dL LAB CHEMISTRY METHOD 11/23/2024 11:02 AM [facility] AST (SGOT) 47(H) 10 - 42 unit/L LAB CHEMISTRY METHOD 11/23/2024 11:02 AM [facility] ALT (SGPT) 74(H) 10 - 60 unit/L LAB CHEMISTRY METHOD 11/23/2024 11:02 AM [facility] Alkaline Phosphatase 104 42 - 121 unit/L LAB CHEMISTRY METHOD 11/23/2024 11:02 AM EDT [facility] Total Protein 7.8 6.0 - 8.0 g/dL LAB CHEMISTRY METHOD 11/23/2024 11:02 AM EDT [facility] Albumin 3.2 3.2 - 5.0 g/dL LAB CHEMISTRY METHOD 11/23/2024 11:02 AM EDT [facility] Total Bilirubin 0.4 0.0 - 1.4 mg/dL LAB CHEMISTRY METHOD 11/23/2024 11:02 AM EDT [facility] Blood Venous blood specimen / Unknown Venipuncture / Unknown 11/23/2024 8:19 AM EDT 11/23/2024 8:19 AM EDT us Christina Yu MD LAB BLOOD ORDERABLES Final R esult [facility] [address] [place] [address], [place] [phone] from Last 3 Months Insurance [facility] [address] Care Teams Property Master Relationship Specialty Start Date End Date Lavon Richardson MD [address] [place] [address] [address] [place] PCP - General Internal Medicine 08/16/24
== END 2025-02-18 16:25 | disposition home or self-care (01) ==
LOC: HO.HMCH 13:51
PROVIDERS: PCP Internal Medicine; Visit Provider Internal Medicine
DX: J45.50 Severe persistent asthma, uncomplicated (principal); F31.9 Bipolar disorder, unspecified; E66.01 Morbid (severe) obesity due to excess calories; C73 Malignant neoplasm of thyroid gland; Z68.44 Body mass index [BMI] 60.0-69.9, adult; Z91.09 Other allergy status, other than to drugs and biological substances; G47.33 Obstructive sleep apnea (adult) (pediatric); M79.7 Fibromyalgia; R79.89 Other specified abnormal findings of blood chemistry; G43.909 Migraine, unspecified, not intractable, without status migrainosus; K21.9 Gastro-esophageal reflux disease without esophagitis; E89.0 Postprocedural hypothyroidism

== ENCOUNTER 2025-02-18 13:50 | Outpatient (REF) | payer OTHER, SELFPAY ==
[2025-02-18 16:01] LABS: MANUAL DIFF FLAG NO
[2025-02-18 17:09] LABS: Hematocrit 40.0 % (37.0-47.0); Hemoglobin 12.6 g/dl (12.0-16.0); Imm Gran Abs Auto 0.05 X10*3/uL (0.00-0.03); Imm Gran Pct Auto 0.5 % (0.0-0.4); Lymphocytes Absolute Auto 2.1 X10*3/uL (1.2-4.9); Mean Corpuscular HGB Conc 31.5 g/dl (31.0-35.0); Mean Corpuscular Hemoglobin 28.3 pg (27.0-33.0); Mean Corpuscular Volume 89.9 fL (80.0-98.0); NRBC Abs Auto 0.000 X10*3/uL (0.0-0.012); NRBC Pct Auto 0.0 /100WBC (0.0-0.2); Platelet Count 394 X10*3/uL (160-400); Red Blood Count 4.45 X10*6/uL (4.20-5.50); White Blood Count 10.5 X10*3/uL (4.8-10.8)
[2025-02-18 17:16] LABS: Hemoglobin A1C 127.1878 umol/L; Total Hemoglobin (HGBA1C) 3216.9863 umol/L
[2025-02-18 17:35] LABS: Appearance Urine Clear; Glucose Urine UA Negative (Negative); PH 8.5 (5.0-9.0); Specific Gravity - Urine 1.025 (1.005-1.025); UMIC TRIGGER UACC YES
[2025-02-18 17:42] LABS: Alanine Aminotransferase 83 U/L (0-31); Albumin Level 3.9 g/dL (3.5-5.0); Alkaline Phosphatase 80 U/L (39-117); Anion Gap 12 (12-20); Aspartate Amino Transferase 60 U/L (5-31); Blood Urea Nitrogen 16 mg/dL (9-16); Calcium 8.8 mg/dL (8.4-10.2); Carbon Dioxide 19 mmol/L (22-29); Chloride 113 mmol/L (96-108); Cholesterol 135 mg/dL (<200); Estimated Glomerular Filt Rate 58; HDL Cholesterol 42 mg/dL (>40); Potassium 4.0 mmol/L (3.3-5.1); Sodium 140 mmol/L (135-145); Total Protein 8.1 g/dL (6.5-8.0); Triglycerides 82 mg/dL (<150)
[2025-02-18 18:06] LABS: Folate 6.5 ng/mL (> or = 4.0); Vitamin B12 368 pg/mL (200-900)
[2025-02-28 13:23] LABS: FIB-ALT 61 U/L (6-29); FIB-Alpha-2-Macroglobulin 157 mg/dL (106-279); FIB-Apolipoprotein A1 136 mg/dL (101-198); FIB-GGT 27 U/L (3-50); FIB-Haptoglobin 230 mg/dL (43-212); FIB-Total Bilirubin 0.2 mg/dL (0.2-1.2); Liver Fibrosis Score 0.04; Liver Fibrosis Stage F0; Nec Inflam Act Grade A0-A1; Nec Inflam Act Score 0.28
== END 2025-02-18 13:51 | disposition home or self-care (01) ==
LOC: HO.LAB 13:50
PROVIDERS: PCP Internal Medicine; Visit Provider Internal Medicine
DX: R79.89 Other specified abnormal findings of blood chemistry (principal); R30.0 Dysuria; E53.8 Deficiency of other specified B group vitamins; E78.00 Pure hypercholesterolemia, unspecified; D64.9 Anemia, unspecified; E55.9 Vitamin D deficiency, unspecified; R73.9 Hyperglycemia, unspecified; J45.50 Severe persistent asthma, uncomplicated; Z91.09 Other allergy status, other than to drugs and biological substances; G47.33 Obstructive sleep apnea (adult) (pediatric); M79.7 Fibromyalgia; G43.909 Migraine, unspecified, not intractable, without status migrainosus; K21.9 Gastro-esophageal reflux disease without esophagitis; E89.0 Postprocedural hypothyroidism; C73 Malignant neoplasm of thyroid gland; F41.9 Anxiety disorder, unspecified; F31.9 Bipolar disorder, unspecified; E66.01 Morbid (severe) obesity due to excess calories; Z68.43 Body mass index [BMI] 50.0-59.9, adult; Z79.890 Hormone replacement therapy; Z79.899 Other long term (current) drug therapy
CPT/HCPCS: 36415; 80053; 80061; 81001; 81596; 82306; 82607; 82746; 83036; 85025; 99212

== ENCOUNTER 2025-03-04 08:46 | Outpatient (REF) | payer OTHER, SELFPAY ==
--- NOTE | ~2025-03-04 | CT_ITS ---
EXAMINATION: CT ABDOMEN AND PELVIS WITHOUT CONTRAST CLINICAL INFORMATION: R31.0. Gross hematuria. COMPARISON: Correlated to ultrasound dated August 11, 2023. TECHNIQUE: Multidetector volumetric imaging was performed from the superior aspect of the liver through the pubic symphysis. Sagittal and coronal reformatted images were obtained on the technologist's workstation. This CT examination was performed using dose optimization techniques as appropriate, variously including the following: *Automated exposure control *Adjustment of mA and/or kV according to patient size (this includes techniques or standardized protocols for targeted exams where dose is matched to indication/reason for exam; i.e. extremities or head) *Use of iterative reconstruction technique DLP: 1002 mGy centimeter. FINDINGS: Inadequate evaluation of the intra-abdominal organs and vascular structures due to lack of IV contrast. LUNG BASES: No acute airspace disease or discrete pulmonary nodules. LIVER, GALLBLADDER, AND BILIARY TREE: Liver measures 18 cm. No intrahepatic biliary ductal dilatation. Status post cholecystectomy. No extrahepatic biliary ductal dilatation. PANCREAS: No peripancreatic fluid collections. No gross main pancreatic ductal dilatation. SPLEEN: 10 cm. ADRENAL GLANDS: No nodular lesions. KIDNEYS AND URETERS: No hydronephrosis. No nephrolithiasis. BLADDER: Collapsed. GASTROINTESTINAL TRACT: Hiatal hernia, small to moderate volume. Appendix is normal with small appendicolith. Abundant stool in a nondistended large intestine. No pneumatosis intestinalis. No intestinal obstruction pattern. No pneumoperitoneum. No ascites. ABDOMINAL WALL: Fat-containing umbilical and suprapubic umbilical hernia is. Patient's large body habitus. LYMPH NODES: No gross mesenteric or retroperitoneal lymphadenopathy. Nonspecific mildly prominent inguinal lymph nodes. VASCULAR: No aneurysm, abdominal aorta. No gross calcified plaques. PELVIC VISCERA: Inadequate evaluation. Uterus is in anteversion flexion position. Focal calcification in the cervix. OSSEOUS STRUCTURES: A S-shaped curvature of the thoracolumbar spine. Castellvi type I sacralization. No gross acute fracture or listhesis. CT/CT abdomen pelvis wo IV con IMPRESSION: No hydronephrosis or nephrolithiasis. Hepatomegaly. Hiatal hernia, small to moderate volume. Fat-containing umbilical and suprapubic umbilical hernias. Fleischner guidelines were followed. Electronically signed by: Kendall Yoo MD 03/04/2025 09:39 AM EDT
--- OUTSIDE RECORDS SUMMARY | 2025-03-04 09:11 | XMS_ITS | Clinical Summary ---
Author Organization [facility] Address [address] [place] [address] Phone Care Team Providers Care Rehabilitation Assistant Name Role Phone Lavon Richardson MD Primary Care Provider [phone] Allergies Active Allergy Reactions Criticality Noted Date [...] Problems Problem Noted Date Diagnosed Date Schizophrenia ([facility] V24, [facility] V28) 025 Class 3 severe obesity with serious comorbidity and body mass index (BMI) of 60.0 to 69.9 in adult ([facility] V24, [facility] V28) 09/28/2024 PTSD (post-traumatic stress disorder) 09/28/2024 Hepatitis C 09/28/2024 Depression 09/28/2024 Asthma 09/28/2024 Overview (09/28/2024): Poorly controlled. Anxiety 09/28/2024 Grand multiparity with problem 025 Class 3 severe obesity witho ut serious comorbidity with body mass index (BMI) of 50.0 to 59.9 in adult ([facility] V24, [facility] V28) 09/11/2024 Surgical History Surgery Date Site/Laterality Comments THYROIDECTOMY CHOLECYSTECTOMY SECTION Medical History Medical History Date Comments Multiple sclerosis Thyroid cancer ([facility] V24, [facility] V28[facility] Lymphoma ([facility] V24, [facility] V28) Social History Tobacco [...] 05/15/2013 Cholesterol Screening (Lipid Panel) 11/23/2029 11/23/2024 RSV Immunization Adult Patients (1 - 1-dose 75+ series) 2060 Varicella Vaccines Aged Out 07/22/2013 No longer [...] Procedure Name Priority Date/Time Associated Diagnosis Comments LIPID PANEL WITH REFLEX TO DIRECT LDL Routine 11/23/2024 8:19 AM EDT Class 3 severe obesity due to excess calories with body mass index (BMI) of 50.0 to 59.9 in adult, unspecified whether serious comorbidity present ([facility] V24, [facility] V28) from Last 3 Months or Most Recently Relevant to Health Maintenance Results * Lipid panel with reflex to direct LDL (11/23/2024 8:19 AM EDT) Cholesterol 140 0 - 200 mg/dL LAB CHEMISTRY METHOD 11/23/2024 11:02 AM [facility] Triglycerides 84 0 - 150 mg/dL LAB CHEMISTRY METHOD 11/23/2024 11:02 AM [facility] HDL 45 >=40 mg/dL LAB CHEMISTRY METHOD 11/23/2024 11:02 AM [facility] LDL Calculated 78 0 - 100 mg/dL LAB CHEMISTRY METHOD 11/23/2024 11:02 AM [facility] VLDL Cholesterol Corky 16.8 mg/dL LAB CHEMISTRY METHOD 11/23/2024 11:02 AM [facility] Non HDL Chol. (LDL+VLDL) 95 <145 mg/dL LAB CHEMISTRY METHOD 11/23/2024 11:02 AM [facility] Chol/HDL Ratio 3.1 0.0 - 4.4 LAB CHEMISTRY METHOD 11/23/2024 11:02 AM [facility] Blood Venous blood specimen / Unknown Venipuncture / Unknown 11/23/2024 8:19 AM EDT 11/23/2024 8:19 AM EDT us Christina Yu MD LAB BLOOD ORDERABLES Final R esult [facility] [address] [place] [address], from Last 3 Months or Most Recently Relevant to Health Maintenance Insurance [facility] [employer] Care Teams Rehabilitation Assistant Relationship Specialty Start Date End Date Lavon Richardson MD [address] [place] [address] Dr [address] [place], [place] PCP - General Internal Medicine 08/16/24
== END 2025-03-04 08:47 | disposition home or self-care (01) ==
LOC: HO.CT 08:46
PROVIDERS: PCP Internal Medicine; Visit Provider Nurse Practitioner Family
DX: R31.0 Gross hematuria (principal)
CPT/HCPCS: 74176

== ENCOUNTER → 2025-03-04 08:48 | Outpatient (BNV) | payer OTHER, SELFPAY | PROVIDERS: PCP Internal Medicine; Visit Provider Radiology Diagnostic Radiology | DX: K44.9 Diaphragmatic hernia without obstruction or gangrene (principal); R16.0 Hepatomegaly, not elsewhere classified; K42.9 Umbilical hernia without obstruction or gangrene | CPT/HCPCS: 74176 ==